=== PATIENT | female | born 1965 | race African-American/Black ===

== ENCOUNTER 2016-08-27 06:16 | Inpatient (IN) | payer MEDICARE, MEDICAID ==
[2016-08-27] VITALS (8 sets, daily range): BP systolic 115–188; BP diastolic 92–136
[~2016-08-27] VITALS: Ht 152.4 cm; Wt 61.2 kg
[~2016-08-27 06:16] MED LIST: COR6 PO; FURO40TA5 PO; LEVO25TA7 PO; LOSA50TA20 PO; METO25TA6 PO; PANT40TA4 PO; PHEN100C12 PO; PROT40 PO; RANI150C12 PO; SEVE800T8 PO; ZOLP10TA2 PO; ZOLP10TA6 PO
[2016-08-27] MEDS ORDERED: CLONIDINE 0.1MG TABLET PO ONE (07:00)
[2016-08-27] MEDS ORDERED: HYDROCODONE/ACETAMINOPHEN 5/325MG TABLET PO ONE (07:00)
[2016-08-27 07:25] LABS: MEAN CORPUSCULAR HEMOGLOBIN 32.7 pg (28.0-32.0); MEAN CORPUSCULAR HGB CONC 33.5 g/dL (31.0-37.0); MEAN CORPUSCULAR VOLUME 97.6 fL (81.0-99.0); MEAN PLATELET VOLUME 7.5 fl (7.4-10.4); PLATELET 128 x1000/uL (130-400); RED BLOOD CELL COUNT 2.01 mill/uL (4.2-5.4); RED CELL DISTRIBUTION WIDTH 17.2 % (11.6-14.6); WHITE BLOOD COUNT 6.1 x1000/uL (4.5-11.0)
[2016-08-27 07:30] LABS: INR 1.3; PARTIAL THROMBOPLASTIN TIME 26.5 sec (24.0-34.0); PROTHROMBIN TIME 13.4 sec
[2016-08-27 07:32] LABS: CALCIUM 8.6 mg/dL (8.5-10.1)
[2016-08-27 07:33] LABS: DIFFERENTIAL COMMENT 1
[2016-08-27 07:34] LABS: HEMATOCRIT. 19.6 % (36.0-48.0); HEMOGLOBIN. 6.6 g/dL (12.0-16.0)
[2016-08-27] MEDS ORDERED: HYDRALAZINE 20MG/ML VIAL IV ONE (08:00)
[2016-08-27 08:01] LABS: ANISOCYTOSIS 1+; PLATELET ESTIMATE SLIGHTLY DECREASED
[2016-08-27] MEDS ORDERED: MORPHINE SULFATE 4 MG/ML CPJ (NOT FOR IM USE) IV ONE (08:30)
[2016-08-27] MEDS ORDERED: ONDANSETRON HCL 4MG/2ML VIAL IV ONE (08:30)
[2016-08-27] MEDS ORDERED: ACETAMINOPHEN 325MG TABLET PO PRN (09:30)
[2016-08-27] MEDS ORDERED: DOCUSATE SODIUM 100MG CAPSULE PO PRN (09:30)
[2016-08-27] MEDS ORDERED: ONDANSETRON HCL 4MG/2ML VIAL IV PRN (09:30)
[2016-08-27] MEDS ORDERED: NITROGLYCERIN 0.4MG TABLET SL SL PRN (09:30)
[2016-08-27] MEDS ORDERED: ENOXAPARIN 40MG/0.4ML SYR SUBCUT SCH (09:30)
[2016-08-27] MEDS ORDERED: NA PHOS,M-B/NA PHOS,DI-BA ENEMA 118ML PR PRN (09:30)
[2016-08-27] MEDS ORDERED: MAGNESIUM/ALUMINUM HYDROXIDE/SIMETHICONE 30ML UDC PO PRN (09:30)
[2016-08-27] MEDS ORDERED: IPRATROPIUM/ALBUTEROL 0.5-3(2.5)MG/3ML NEB INH PRN (09:30)
[2016-08-27] MEDS ORDERED: GUAIFENESIN 200MG/10ML SUGAR FREE UDC PO PRN (09:30)
[2016-08-27 09:41] LABS: ETHANOL BLOOD < 10 mg/dL; PHENYTOIN 4.5 ug/mL (10-20)
[2016-08-27] MEDS: HYDRALAZINE HCL 50MG TABLET PO SCH ×2 (14:00→22:14)
[2016-08-27] MEDS: SEVELAMER CARBONATE 800 MG TABLET PO SCH ×2 (14:03→17:56)
[2016-08-27] MEDS: ENOXAPARIN 30MG/0.3ML SYR SUBCUT SCH (14:04)
[2016-08-27 15:42] LABS: CREATINE KINASE MB FRACTION 0.6 ng/mL (0.5-3.6); TROPONIN I 0.03 ng/mL (0.00-0.04)
[2016-08-27] MEDS: DIPHENHYDRAMINE 50MG/ML VIAL IV PRN (16:24)
[2016-08-27] MEDS ORDERED: HEPARIN SODIUM 1,000 UNIT/1ML VIAL IV NR (16:58)
[2016-08-27] MEDS: CARVEDILOL 3.125 MG TABLET PO SCH (17:56)
[2016-08-27] MEDS: PHENYTOIN SODIUM EXTENDED 100MG CAPSULE PO SCH (20:01)
[2016-08-27] MEDS: CLONIDINE 0.1MG TABLET PO PRN (20:02)
[2016-08-27] MEDS: LORAZEPAM 2MG/ML CPJ IV PRN (20:03)
[2016-08-27] MEDS: ZOLPIDEM TARTRATE 5MG TABLET PO PRN (22:14)
[2016-08-27 22:58] LABS: CREATINE KINASE MB FRACTION 1.3 ng/mL (0.5-3.6); TROPONIN I 0.05 ng/mL (0.00-0.04)
[2016-08-28] VITALS: BP 137/100
[2016-08-28] MEDS: LORAZEPAM 2MG/ML CPJ IV PRN ×3 (02:02→16:44)
[2016-08-28 04:00] VITALS: BP 142/103
[2016-08-28] MEDS: HYDRALAZINE HCL 50MG TABLET PO SCH ×3 (05:10→21:43)
[2016-08-28] MEDS: CARVEDILOL 3.125 MG TABLET PO SCH ×2 (05:59→17:49)
[2016-08-28 06:29] LABS: HEMATOCRIT. 27.7 % (36.0-48.0); HEMOGLOBIN. 9.3 g/dL (12.0-16.0); MEAN CORPUSCULAR HEMOGLOBIN 31.8 pg (28.0-32.0); MEAN CORPUSCULAR HGB CONC 33.7 g/dL (31.0-37.0); MEAN CORPUSCULAR VOLUME 94.3 fL (81.0-99.0); MEAN PLATELET VOLUME 8.2 fl (7.4-10.4); PLATELET 140 x1000/uL (130-400); RED BLOOD CELL COUNT 2.94 mill/uL (4.2-5.4); RED CELL DISTRIBUTION WIDTH 18.2 % (11.6-14.6); WHITE BLOOD COUNT 6.3 x1000/uL (4.5-11.0)
[2016-08-28 06:37] LABS: CALCIUM 8.5 mg/dL (8.5-10.1)
[2016-08-28 06:58] LABS: DIFFERENTIAL COMMENT 1
[2016-08-28 08:00] VITALS: BP 143/100
[2016-08-28 08:21] LABS: ANISOCYTOSIS 1+; NUCLEATED RED BLOOD CELLS 2 /100 WBC; PLATELET ESTIMATE NORMAL
[2016-08-28] MEDS: FOLIC ACID/VITAMIN B COMP W-C TABLET PO SCH (08:49)
[2016-08-28] MEDS: PANTOPRAZOLE SODIUM 40 MG/VIAL IV SCH (08:49)
[2016-08-28] MEDS: SEVELAMER CARBONATE 800 MG TABLET PO SCH ×3 (08:49→17:49)
[2016-08-28] MEDS: ENOXAPARIN 30MG/0.3ML SYR SUBCUT SCH (08:50)
[2016-08-28 12:00] VITALS: BP 106/64
[2016-08-28] MEDS: TRAMADOL 50MG TABLET PO PRN (12:27)
[2016-08-28 16:00] VITALS: BP 138/109
[2016-08-28] MEDS: DIPHENHYDRAMINE 50MG/ML VIAL IV PRN ×2 (17:50→22:45)
[2016-08-28 20:00] VITALS: BP 149/114
[2016-08-28] MEDS: PHENYTOIN SODIUM EXTENDED 100MG CAPSULE PO SCH (20:50)
[2016-08-29] VITALS: BP 141/97
[2016-08-29] MEDS: ZOLPIDEM TARTRATE 5MG TABLET PO PRN (00:52)
[2016-08-29 04:00] VITALS: BP 138/105
[2016-08-29] MEDS: HYDRALAZINE HCL 50MG TABLET PO SCH (04:17)
[2016-08-29 06:22] LABS: CALCIUM 8.6 mg/dL (8.5-10.1)
[2016-08-29] MEDS: LORAZEPAM 2MG/ML CPJ IV PRN (06:26)
[2016-08-29] MEDS: CARVEDILOL 3.125 MG TABLET PO SCH (06:30)
[2016-08-29 06:32] LABS: HEMATOCRIT. 29.6 % (36.0-48.0); MEAN CORPUSCULAR HEMOGLOBIN 31.7 pg (28.0-32.0); MEAN CORPUSCULAR HGB CONC 33.8 g/dL (31.0-37.0); MEAN CORPUSCULAR VOLUME 93.8 fL (81.0-99.0); MEAN PLATELET VOLUME 8.4 fl (7.4-10.4); PLATELET 143 x1000/uL (130-400); RED BLOOD CELL COUNT 3.15 mill/uL (4.2-5.4); RED CELL DISTRIBUTION WIDTH 18.7 % (11.6-14.6); WHITE BLOOD COUNT 5.7 x1000/uL (4.5-11.0)
[2016-08-29 07:03] LABS: DIFFERENTIAL COMMENT 1
[2016-08-29 08:00] VITALS: BP 145/107
[2016-08-29] MEDS: PANTOPRAZOLE SODIUM 40 MG/VIAL IV SCH (08:20)
[2016-08-29] MEDS: FOLIC ACID/VITAMIN B COMP W-C TABLET PO SCH (08:20)
[2016-08-29] MEDS: SEVELAMER CARBONATE 800 MG TABLET PO SCH (08:20)
[2016-08-29] MEDS: ENOXAPARIN 30MG/0.3ML SYR SUBCUT SCH (08:20)
[2016-08-29] MEDS: TRAMADOL 50MG TABLET PO PRN (09:08)
[2016-08-29 10:33] LABS: NUCLEATED RED BLOOD CELLS 1 /100 WBC
[2016-08-29 10:35] LABS: ANISOCYTOSIS 1+
[2016-08-29 10:36] LABS: PLATELET ESTIMATE NORMAL
[2016-08-29 11:48] VITALS: BP 157/114
[2016-08-29] MEDS: CLONIDINE 0.1MG TABLET PO PRN (11:51)
[2016-08-29 12:04] VITALS: BP 157/114
== END 2016-08-29 12:27 | disposition home or self-care (01) | DRG 314 ==
LOC: ER 06:18 → 8WST 08:35
PROVIDERS: ADMIT Internal Medicine; ATTEND Internal Medicine
PROC: 02PYX3Z Removal of Infusion Device from Great Vessel, External Approach (ICD-10-PCS; principal; 2016-08-27)
PROC: 02HV33Z Insertion of Infusion Device into Superior Vena Cava, Percutaneous Approach (ICD-10-PCS; 2016-08-27)
PROC: B5181ZA Fluoroscopy of Superior Vena Cava using Low Osmolar Contrast, Guidance (ICD-10-PCS; 2016-08-27)
PROC: B548ZZA Ultrasonography of Superior Vena Cava, Guidance (ICD-10-PCS; 2016-08-27)
PROC: 5A1D60Z (ICD-10-PCS; 2016-08-27)
PROC: 30233N1 Transfusion of Nonautologous Red Blood Cells into Peripheral Vein, Percutaneous Approach (ICD-10-PCS; 2016-08-27)
DX: T82.49XA Other complication of vascular dialysis catheter, initial encounter (principal); N18.6 End stage renal disease; D62 Acute posthemorrhagic anemia; I13.2 Hypertensive heart and chronic kidney disease with heart failure and with stage 5 chronic kidney disease, or end stage renal disease; E03.9 Hypothyroidism, unspecified; F20.9 Schizophrenia, unspecified; F31.9 Bipolar disorder, unspecified; G40.909 Epilepsy, unspecified, not intractable, without status epilepticus; I50.9 Heart failure, unspecified; E05.90 Thyrotoxicosis, unspecified without thyrotoxic crisis or storm; Y71.2 Prosthetic and other implants, materials and accessory cardiovascular devices associated with adverse incidents; Z82.49 Family history of ischemic heart disease and other diseases of the circulatory system; Z83.3 Family history of diabetes mellitus; Z91.11 Patient's noncompliance with dietary regimen; Z91.14 Patient's other noncompliance with medication regimen; Z91.19 Patient's noncompliance with other medical treatment and regimen; Z99.2 Dependence on renal dialysis; Z91.018 Allergy to other foods; Z91.09 Other allergy status, other than to drugs and biological substances; Z79.899 Other long term (current) drug therapy; Z72.89 Other problems related to lifestyle
CPT/HCPCS: 36415; 36430; 36556; 71010; 76937; 77001; 80048; 80185; 82550; 82553; 84484; 85025; 85610; 85730; 86850; 86870; 86900; 86920; 93005; 99285; C1752; C9113; G0482; J0360; J1200; J1644; J1650; J2060; J2270; J2405; J7030; J7050; P9016; P9021

== ENCOUNTER 2016-10-11 03:50 | Inpatient (IN) | payer MEDICARE, MEDICAID ==
[~2016-10-11] VITALS: Ht 170.2 cm; Wt 56.7 kg
[2016-10-11 04:53] LABS: HEMOGLOBIN. 9.1 g/dL (12.0-16.0); MEAN CORPUSCULAR HEMOGLOBIN 30.9 pg (28.0-32.0); MEAN CORPUSCULAR HGB CONC 32.5 g/dL (31.0-37.0); MEAN PLATELET VOLUME 7.3 fl (7.4-10.4); PLATELET 241 x1000/uL (130-400); RED BLOOD CELL COUNT 2.95 mill/uL (4.2-5.4); RED CELL DISTRIBUTION WIDTH 16.7 % (11.6-14.6); WHITE BLOOD COUNT 4.3 x1000/uL (4.5-11.0)
[2016-10-11 04:54] LABS: DIFFERENTIAL COMMENT 1
[2016-10-11 04:57] LABS: INR 1.2; PARTIAL THROMBOPLASTIN TIME 26.5 sec (24.0-34.0); PROTHROMBIN TIME 12.7 sec
[2016-10-11 05:08] LABS: ALANINE AMINOTRANSFERASE < 6 IU/L (13-61); ALBUMIN 3.2 g/dL (3.4-5.0); ANION GAP 26; CALCIUM 8.5 mg/dL (8.5-10.1); CARBON DIOXIDE 17 mEq/L (21-32); CHLORIDE 100 mEq/L (98-107); INDEX HEMOLYSI 1 (1-3); INDEX ICTERIC 1 (1-4); INDEX LIPEMIC 1 (1-3); TROPONIN I 0.08 ng/mL (0.00-0.04); UREA NITROGEN BLOOD 66 mg/dL (7-21); eGFR 4 mL/min (>60)
[2016-10-11] MEDS ORDERED: LORAZEPAM 1MG TABLET PO ONE (06:30)
[2016-10-11] MEDS ORDERED: ONDANSETRON HCL 4MG/2ML VIAL IV ONE (06:30)
[2016-10-11] MEDS ORDERED: CALCIUM CHLORIDE 1GM/10ML SYR IV ONE (06:30)
[2016-10-11] MEDS ORDERED: MORPHINE SULFATE 4 MG/ML CPJ (NOT FOR IM USE) IV ONE (06:30)
[2016-10-11] MEDS ORDERED: DEXTROSE 50% WATER 50ML SYRINGE IV ONE (06:30)
[2016-10-11] MEDS ORDERED: INSULIN REGULAR (HUMULIN R) 300UNITS/3ML IV ONE (06:30)
[2016-10-11] MEDS ORDERED: SODIUM BICARBONATE 8.4% 1 MEQ/ML 50ML SYR IV ONE (06:30)
[2016-10-11 06:35] LABS: MAGNESIUM 2.3 mg/dL (1.8-2.4); PHOSPHORUS 5.1 mg/dL (2.5-4.9)
[2016-10-11 07:15] LABS: NUCLEATED RED BLOOD CELLS 1 /100 WBC; PLATELET ESTIMATE NORMAL
[2016-10-11] MEDS ORDERED: HYDRALAZINE 20MG/ML VIAL IV ONE (11:45)
[2016-10-11 12:50] VITALS: BP 151/119
[2016-10-11] MEDS ORDERED: ACETAMINOPHEN 325MG TABLET PO PRN (15:15)
[2016-10-11] MEDS ORDERED: MAGNESIUM/ALUMINUM HYDROXIDE/SIMETHICONE 30ML UDC PO PRN (15:15)
[2016-10-11] MEDS ORDERED: ONDANSETRON HCL 4MG/2ML VIAL IV PRN (15:15)
[2016-10-11] MEDS ORDERED: LORAZEPAM 0.5MG TABLET PO PRN (15:15)
[2016-10-11] MEDS ORDERED: DIPHENHYDRAMINE 50MG/ML VIAL IV PRN (15:15)
[2016-10-11] MEDS ORDERED: CLONIDINE 0.1MG TABLET PO PRN (15:15)
[2016-10-11] MEDS ORDERED: CARVEDILOL 12.5MG TABLET PO SCH (17:00)
[2016-10-11] MEDS ORDERED: PHENYTOIN SODIUM EXTENDED 100MG CAPSULE PO SCH (17:00)
[2016-10-11] MEDS ORDERED: SEVELAMER CARBONATE 800 MG TABLET PO SCH (17:40)
[2016-10-11] MEDS ORDERED: SODIUM CHLORIDE 0.9% INJ 3ML FLUSH IVF SCH (22:00)
[2016-10-11] MEDS ORDERED: ISOSORB DINIT/HYDRALAZINE HCL 20/37.5MG TABLET PO SCH (22:00)
[2016-10-12] MEDS ORDERED: LEVOTHYROXINE SODIUM 25MCG TABLET PO SCH (07:10)
[2016-10-12] MEDS ORDERED: LOSARTAN POTASSIUM 50 MG TABLET PO SCH (09:00)
[2016-10-12] MEDS ORDERED: PANTOPRAZOLE 40MG DR TABLET PO SCH (09:00)
== END 2016-10-11 19:20 | disposition left against medical advice (07) | DRG 291 ==
LOC: ER 03:54 → 8WST 07:10
PROVIDERS: ADMIT Internal Medicine; ATTEND Internal Medicine
PROC: 5A1D00Z (ICD-10-PCS; principal; 2016-10-11)
DX: I13.2 Hypertensive heart and chronic kidney disease with heart failure and with stage 5 chronic kidney disease, or end stage renal disease (principal); N18.6 End stage renal disease; I50.23 Acute on chronic systolic (congestive) heart failure; N17.9 Acute kidney failure, unspecified; D63.8 Anemia in other chronic diseases classified elsewhere; E03.9 Hypothyroidism, unspecified; E87.5 Hyperkalemia; D64.9 Anemia, unspecified; Z53.21 Procedure and treatment not carried out due to patient leaving prior to being seen by health care provider; F17.200 Nicotine dependence, unspecified, uncomplicated; F41.1 Generalized anxiety disorder; Z82.49 Family history of ischemic heart disease and other diseases of the circulatory system; Z83.3 Family history of diabetes mellitus; Z91.19 Patient's noncompliance with other medical treatment and regimen; Z99.2 Dependence on renal dialysis; Z79.2 Long term (current) use of antibiotics; Z79.899 Other long term (current) drug therapy; Z98.51 Tubal ligation status; Z91.018 Allergy to other foods
CPT/HCPCS: 36415; 71010; 80053; 82962; 83735; 84100; 84484; 85025; 85610; 85730; 93005; 96374; 96375; 99291; J0360; J1815; J2270; J2405; J3490; J7030

== ENCOUNTER 2016-11-03 23:00 | Inpatient (IN) | payer MEDICARE, MEDICAID ==
[~2016-11-03] VITALS: Ht 170.2 cm; Wt 56.7 kg
[2016-11-03 23:40] LABS: BASOPHILS % 2.2 % (0.0-2.0); EOSINOPHILS % 10.3 % (0.0-5.0); HEMATOCRIT. 29.8 % (36.0-48.0); HEMOGLOBIN. 10.1 g/dL (12.0-16.0); LYMPHOCYTES % 36.7 % (20.0-50.0); MEAN CORPUSCULAR HEMOGLOBIN 30.9 pg (28.0-32.0); MEAN CORPUSCULAR VOLUME 91.6 fL (81.0-99.0); MEAN PLATELET VOLUME 7.6 fl (7.4-10.4); NEUTROPHILS % 40.8 % (40.0-76.0); PLATELET 238 x1000/uL (130-400); RED BLOOD CELL COUNT 3.26 mill/uL (4.2-5.4)
[2016-11-03] MEDS ORDERED: IPRATROPIUM/ALBUTEROL 0.5-3(2.5)MG/3ML NEB INH PRN (23:45)
[2016-11-03] MEDS ORDERED: DIPHENHYDRAMINE 50MG/ML VIAL IV PRN (23:45)
[2016-11-03] MEDS ORDERED: MAGNESIUM/ALUMINUM HYDROXIDE/SIMETHICONE 30ML UDC PO PRN (23:45)
[2016-11-03] MEDS ORDERED: ONDANSETRON HCL 4MG/2ML VIAL IV PRN (23:45)
[2016-11-03 23:46] LABS: CHLORIDE 102 mEq/L (98-107)
[2016-11-03 23:47] LABS: INR 1.2; PARTIAL THROMBOPLASTIN TIME 27.1 sec (24.0-34.0); PROTHROMBIN TIME 12.4 sec
[2016-11-04] MEDS ORDERED: MORPHINE SULFATE 4 MG/ML CPJ (NOT FOR IM USE) IV ONE
[2016-11-04] MEDS ORDERED: ONDANSETRON HCL 4MG/2ML VIAL IV ONE
[2016-11-04 00:01] LABS: CARBON DIOXIDE 22 mEq/L (21-32)
[2016-11-04] MEDS: ACETAMINOPHEN 325MG TABLET PO PRN ×2 (01:51→20:34)
[2016-11-04] MEDS: LORAZEPAM 1MG TABLET PO PRN ×2 (02:19→22:01)
[2016-11-04] MEDS: CLONIDINE 0.1MG TABLET PO PRN (02:40)
[2016-11-04 04:00] VITALS: BP 146/109
[2016-11-04 04:19] VITALS: BP 146/109
[2016-11-04] MEDS: ISOSORB DINIT/HYDRALAZINE HCL 20/37.5MG TABLET PO SCH ×3 (06:00→22:01)
[2016-11-04] MEDS: PHENYTOIN SODIUM EXTENDED 100MG CAPSULE PO SCH ×3 (06:34→22:01)
[2016-11-04] MEDS: LEVOTHYROXINE SODIUM 50MCG TABLET PO SCH (06:34)
[2016-11-04] MEDS: SODIUM CHLORIDE 0.9% INJ 3ML FLUSH IVF SCH ×3 (06:35→22:01)
[2016-11-04 08:00] VITALS: BP 129/102
[2016-11-04] MEDS: FOLIC ACID/VITAMIN B COMP W-C TABLET PO SCH (09:00)
[2016-11-04] MEDS: AMLODIPINE 10MG TABLET PO SCH (09:00)
[2016-11-04] MEDS: CARVEDILOL 12.5MG TABLET PO SCH ×2 (09:00→20:35)
[2016-11-04] MEDS ORDERED: HEPARIN SODIUM 1,000 UNIT/1ML VIAL IV SCH (09:15)
[2016-11-04 12:00] VITALS: BP 132/96
[2016-11-04 16:15] VITALS: BP 141/100
[2016-11-04 20:00] VITALS: BP 147/107
[2016-11-04] MEDS: TRAMADOL 50MG TABLET PO PRN (23:58)
[2016-11-05] VITALS: BP 142/110
[2016-11-05 04:00] VITALS: BP 141/109
[2016-11-05] MEDS: ISOSORB DINIT/HYDRALAZINE HCL 20/37.5MG TABLET PO SCH ×3 (06:15→21:13)
[2016-11-05] MEDS: SODIUM CHLORIDE 0.9% INJ 3ML FLUSH IVF SCH ×3 (06:15→21:13)
[2016-11-05] MEDS: PHENYTOIN SODIUM EXTENDED 100MG CAPSULE PO SCH ×3 (06:15→21:14)
[2016-11-05] MEDS: LEVOTHYROXINE SODIUM 50MCG TABLET PO SCH (06:15)
[2016-11-05] MEDS: LORAZEPAM 1MG TABLET PO PRN (06:31)
[2016-11-05] MEDS: TRAMADOL 50MG TABLET PO PRN (06:33)
[2016-11-05 08:00] VITALS: BP 109/82
[2016-11-05] MEDS: CARVEDILOL 12.5MG TABLET PO SCH ×2 (09:00→21:13)
[2016-11-05] MEDS: AMLODIPINE 10MG TABLET PO SCH (09:00)
[2016-11-05] MEDS: FOLIC ACID/VITAMIN B COMP W-C TABLET PO SCH (09:41)
[2016-11-05 12:00] VITALS: BP 113/75
[2016-11-05 16:00] VITALS: BP 123/87
[2016-11-05 20:00] VITALS: BP 125/98
[2016-11-05] MEDS: ZOLPIDEM TARTRATE 5MG TABLET PO PRN (21:14)
[2016-11-06] VITALS (7 sets, daily range): BP systolic 109–143; BP diastolic 72–106
[2016-11-06] MEDS: CLONIDINE 0.1MG TABLET PO PRN ×2 (00:40→16:09)
[2016-11-06] MEDS: LORAZEPAM 1MG TABLET PO PRN ×3 (00:45→16:09)
[2016-11-06] MEDS: PHENYTOIN SODIUM EXTENDED 100MG CAPSULE PO SCH ×3 (05:26→21:16)
[2016-11-06] MEDS: ISOSORB DINIT/HYDRALAZINE HCL 20/37.5MG TABLET PO SCH ×3 (05:26→21:16)
[2016-11-06] MEDS: LEVOTHYROXINE SODIUM 50MCG TABLET PO SCH (06:34)
[2016-11-06] MEDS: CARVEDILOL 12.5MG TABLET PO SCH ×2 (07:39→21:16)
[2016-11-06] MEDS: AMLODIPINE 10MG TABLET PO SCH (07:39)
[2016-11-06] MEDS: TRAMADOL 50MG TABLET PO PRN (07:52)
[2016-11-06] MEDS: FOLIC ACID/VITAMIN B COMP W-C TABLET PO SCH (07:52)
[2016-11-06 07:59] LABS: BASOPHILS % 0.8 % (0.0-2.0); HEMATOCRIT. 27.8 % (36.0-48.0); HEMOGLOBIN. 9.2 g/dL (12.0-16.0); LYMPHOCYTES % 31.4 % (20.0-50.0); MEAN CORPUSCULAR HEMOGLOBIN 30.6 pg (28.0-32.0); MEAN CORPUSCULAR VOLUME 92.8 fL (81.0-99.0); MEAN PLATELET VOLUME 8.3 fl (7.4-10.4); MONOCYTES % 10.6 % (2.0-8.0); NEUTROPHILS % 49.2 % (40.0-76.0); PLATELET 214 x1000/uL (130-400); RED CELL DISTRIBUTION WIDTH 16.1 % (11.6-14.6)
[2016-11-06] MEDS ORDERED: HEPARIN SODIUM 1,000 UNIT/1ML VIAL IV NR (12:00)
[2016-11-06] MEDS: SODIUM CHLORIDE 0.9% INJ 3ML FLUSH IVF SCH ×2 (13:21→21:17)
[2016-11-06] MEDS: ZOLPIDEM TARTRATE 5MG TABLET PO PRN (21:16)
[2016-11-07 04:00] VITALS: BP 111/84
[2016-11-07] MEDS: ISOSORB DINIT/HYDRALAZINE HCL 20/37.5MG TABLET PO SCH (06:12)
[2016-11-07] MEDS: PHENYTOIN SODIUM EXTENDED 100MG CAPSULE PO SCH (06:12)
[2016-11-07] MEDS: LEVOTHYROXINE SODIUM 50MCG TABLET PO SCH (06:12)
[2016-11-07] MEDS: SODIUM CHLORIDE 0.9% INJ 3ML FLUSH IVF SCH (06:13)
[2016-11-07 06:21] LABS: HEMATOCRIT. 30.2 % (36.0-48.0); HEMOGLOBIN. 10.1 g/dL (12.0-16.0); MEAN CORPUSCULAR HEMOGLOBIN 30.7 pg (28.0-32.0); PLATELET 222 x1000/uL (130-400); RED BLOOD CELL COUNT 3.28 mill/uL (4.2-5.4); RED CELL DISTRIBUTION WIDTH 15.8 % (11.6-14.6)
[2016-11-07 08:00] VITALS: BP 102/84
[2016-11-07] MEDS: CARVEDILOL 12.5MG TABLET PO SCH (09:33)
[2016-11-07] MEDS: FOLIC ACID/VITAMIN B COMP W-C TABLET PO SCH (09:33)
[2016-11-07] MEDS: AMLODIPINE 10MG TABLET PO SCH (09:34)
[2016-11-07] MEDS: LORAZEPAM 1MG TABLET PO PRN (09:34)
[2016-11-07 11:28] LABS: PLATELET ESTIMATE NORMAL
== END 2016-11-07 14:30 | disposition home or self-care (01) | DRG 291 ==
LOC: ER 23:00 → 6WST 23:58
PROVIDERS: ADMIT Internal Medicine; ATTEND Internal Medicine
PROC: 5A1D60Z (ICD-10-PCS; 2016-11-04)
PROC: 0W9G3ZZ Drainage of Peritoneal Cavity, Percutaneous Approach (ICD-10-PCS; principal; 2016-11-05)
DX: I13.2 Hypertensive heart and chronic kidney disease with heart failure and with stage 5 chronic kidney disease, or end stage renal disease (principal); I50.23 Acute on chronic systolic (congestive) heart failure; N18.6 End stage renal disease; R18.8 Other ascites; F41.1 Generalized anxiety disorder; D64.9 Anemia, unspecified; E03.9 Hypothyroidism, unspecified; E87.5 Hyperkalemia; G40.909 Epilepsy, unspecified, not intractable, without status epilepticus; F29 Unspecified psychosis not due to a substance or known physiological condition; F17.200 Nicotine dependence, unspecified, uncomplicated; Z91.19 Patient's noncompliance with other medical treatment and regimen; Z99.2 Dependence on renal dialysis; Z91.018 Allergy to other foods; Z79.899 Other long term (current) drug therapy; Z83.3 Family history of diabetes mellitus; Z82.49 Family history of ischemic heart disease and other diseases of the circulatory system
CPT/HCPCS: 36415; 49083; 71010; 76705; 80048; 80051; 80053; 82962; 83880; 85025; 85610; 85730; 93005; 96374; 96375; 99285; C1893; J1200; J1644; J2270; J2405; J7030

== ENCOUNTER 2016-11-12 21:56 | Inpatient (IN) | payer MEDICARE, MEDICAID ==
[~2016-11-12] VITALS: Ht 170.2 cm; Wt 53.1 kg
[2016-11-13] MEDS ORDERED: MORPHINE SULFATE 4 MG/ML CPJ (NOT FOR IM USE) IV STA (00:04)
[2016-11-13] MEDS ORDERED: ONDANSETRON HCL 4MG/2ML VIAL IV STA (00:04)
[2016-11-13 00:34] LABS: HEMATOCRIT. 32.1 % (36.0-48.0); HEMOGLOBIN. 10.7 g/dL (12.0-16.0); LYMPHOCYTES % 39.1 % (20.0-50.0); MEAN CORPUSCULAR HEMOGLOBIN 30.5 pg (28.0-32.0); MEAN CORPUSCULAR VOLUME 91.7 fL (81.0-99.0); MONOCYTES % 9.3 % (2.0-8.0); NEUTROPHILS % 44.6 % (40.0-76.0); PLATELET 269 x1000/uL (130-400); RED CELL DISTRIBUTION WIDTH 15.8 % (11.6-14.6)
[2016-11-13 00:47] LABS: CARBON DIOXIDE 20 mEq/L (21-32); CHLORIDE 98 mEq/L (98-107); TROPONIN I 0.03 ng/mL (0.00-0.04)
[2016-11-13] MEDS ORDERED: SODIUM BICARBONATE 8.4% 1 MEQ/ML 50ML SYR IV ONE (02:00)
[2016-11-13] MEDS ORDERED: INSULIN REGULAR (HUMULIN R) 300UNITS/3ML IV ONE (02:00)
[2016-11-13] MEDS ORDERED: DEXTROSE 50% WATER 50ML SYRINGE IV ONE ×2 (02:00→02:15)
[2016-11-13] MEDS ORDERED: SODIUM POLYSTYRENE SULFONATE 15 G/60 ML BOT PO ONE (02:00)
[2016-11-13] MEDS ORDERED: CALCIUM CHLORIDE 1GM/10ML SYR IV ONE (02:00)
[2016-11-13] MEDS ORDERED: DEXTROSE 50% WATER 50ML SYRINGE IV NR (02:15)
[2016-11-13] MEDS ORDERED: DIPHENHYDRAMINE 50MG/ML VIAL IV ONE (03:45)
[2016-11-13] MEDS ORDERED: DEXT 5%/0.45% NACL 1000ML 1,000 ML IV SCH (07:02)
[2016-11-13] MEDS ORDERED: NA PHOS,M-B/NA PHOS,DI-BA ENEMA 118ML PR PRN (07:15)
[2016-11-13] MEDS ORDERED: MAGNESIUM/ALUMINUM HYDROXIDE/SIMETHICONE 30ML UDC PO PRN (07:15)
[2016-11-13] MEDS ORDERED: ONDANSETRON HCL 4MG/2ML VIAL IV PRN (07:15)
[2016-11-13] MEDS ORDERED: HYDROCODONE/ACETAMINOPHEN 5/325MG TABLET PO PRN (07:15)
[2016-11-13] MEDS ORDERED: DOCUSATE SODIUM 100MG CAPSULE PO PRN (07:15)
[2016-11-13] MEDS ORDERED: HYDROMORPHONE HCL/PF 2MG/ML CPJ IV PRN (07:15)
[2016-11-13] MEDS ORDERED: IPRATROPIUM/ALBUTEROL 0.5-3(2.5)MG/3ML NEB INH PRN (07:15)
[2016-11-13] MEDS ORDERED: ACETAMINOPHEN 325MG TABLET PO PRN (07:15)
[2016-11-13] MEDS ORDERED: GUAIFENESIN 200MG/10ML SUGAR FREE UDC PO PRN (07:15)
[2016-11-13] MEDS: CLONIDINE 0.1MG TABLET PO PRN ×2 (08:12→21:43)
[2016-11-13] MEDS ORDERED: SODIUM POLYSTYRENE SULFONATE 15 G/60 ML BOT PO SCH (09:00)
[2016-11-13] MEDS: ENOXAPARIN 30MG/0.3ML SYR SUBCUT SCH (11:17)
[2016-11-13] MEDS: DIPHENHYDRAMINE 50MG/ML VIAL IV PRN ×2 (11:17→13:50)
[2016-11-13 12:00] VITALS: BP 180/143
[2016-11-13 12:44] VITALS: BP 180/143
[2016-11-13] MEDS ORDERED: AMLO10TA80 PO (13:09)
[2016-11-13] MEDS ORDERED: FAMO20TA8 PO (13:09)
[2016-11-13] MEDS ORDERED: TRAM50TA3 PO (13:09)
[2016-11-13] MEDS: LOSARTAN POTASSIUM 50 MG TABLET PO SCH (13:49)
[2016-11-13] MEDS: AMLODIPINE 10MG TABLET PO SCH (13:49)
[2016-11-13] MEDS: PHENYTOIN SODIUM EXTENDED 100MG CAPSULE PO SCH ×2 (13:50→17:19)
[2016-11-13] MEDS: ASPIRIN 81MG EC TABLET PO SCH (13:50)
[2016-11-13] MEDS: SEVELAMER CARBONATE 800 MG TABLET PO SCH ×2 (13:50→17:19)
[2016-11-13] MEDS: LEVOTHYROXINE SODIUM 50MCG TABLET PO SCH (13:50)
[2016-11-13] MEDS: FAMOTIDINE 20MG TABLET PO SCH (13:50)
[2016-11-13] MEDS: FUROSEMIDE 40MG TABLET PO SCH (17:19)
[2016-11-13 20:00] VITALS: BP 185/128
[2016-11-13] MEDS: LORAZEPAM 2MG/ML CPJ IV PRN (21:42)
[2016-11-13] MEDS: CARVEDILOL 12.5MG TABLET PO SCH (21:42)
[2016-11-14] VITALS: BP 145/93
[2016-11-14] MEDS: LORAZEPAM 2MG/ML CPJ IV PRN ×3 (03:28→20:02)
[2016-11-14 04:00] VITALS: BP 98/67
[2016-11-14 05:11] LABS: BASOPHILS % 0.7 % (0.0-2.0); HEMOGLOBIN. 8.9 g/dL (12.0-16.0); LYMPHOCYTES % 10.1 % (20.0-50.0); MEAN CORPUSCULAR HEMOGLOBIN 30.4 pg (28.0-32.0); MEAN CORPUSCULAR VOLUME 92.3 fL (81.0-99.0); MEAN PLATELET VOLUME 8.4 fl (7.4-10.4); MONOCYTES % 6.8 % (2.0-8.0); NEUTROPHILS % 79.4 % (40.0-76.0); PLATELET 164 x1000/uL (130-400); RED BLOOD CELL COUNT 2.93 mill/uL (4.2-5.4); RED CELL DISTRIBUTION WIDTH 15.3 % (11.6-14.6)
[2016-11-14 05:30] LABS: CARBON DIOXIDE 27 mEq/L (21-32); CHLORIDE 103 mEq/L (98-107); HDL CHOLESTEROL 46 mg/dL (40-59); LDL CHOLESTEROL 46 mg/dL (5-100); TROPONIN I 0.06 ng/mL (0.00-0.04)
[2016-11-14 08:47] VITALS: BP 129/85
[2016-11-14] MEDS: LEVOTHYROXINE SODIUM 50MCG TABLET PO SCH (08:52)
[2016-11-14] MEDS: SEVELAMER CARBONATE 800 MG TABLET PO SCH ×3 (08:52→17:31)
[2016-11-14] MEDS: PHENYTOIN SODIUM EXTENDED 100MG CAPSULE PO SCH ×3 (08:52→17:43)
[2016-11-14] MEDS: LOSARTAN POTASSIUM 50 MG TABLET PO SCH (08:52)
[2016-11-14] MEDS: ASPIRIN 81MG EC TABLET PO SCH (08:52)
[2016-11-14] MEDS: FAMOTIDINE 20MG TABLET PO SCH (08:52)
[2016-11-14] MEDS: FUROSEMIDE 40MG TABLET PO SCH ×2 (08:52→17:31)
[2016-11-14] MEDS: AMLODIPINE 10MG TABLET PO SCH (08:52)
[2016-11-14] MEDS: CARVEDILOL 12.5MG TABLET PO SCH ×2 (08:52→20:02)
[2016-11-14] MEDS: ENOXAPARIN 30MG/0.3ML SYR SUBCUT SCH (08:52)
[2016-11-14 12:31] VITALS: BP 149/98
[2016-11-14 16:15] VITALS: BP 123/87
[2016-11-14 20:00] VITALS: BP 151/91
[2016-11-14] MEDS: ZOLPIDEM TARTRATE 5MG TABLET PO PRN (23:21)
[2016-11-15] VITALS: BP 134/89
[2016-11-15 04:00] VITALS: BP 158/90
[2016-11-15] MEDS: LORAZEPAM 2MG/ML CPJ IV PRN ×3 (06:10→21:20)
[2016-11-15 07:30] LABS: HEMATOCRIT. 28.1 % (36.0-48.0); HEMOGLOBIN. 9.2 g/dL (12.0-16.0); MEAN CORPUSCULAR HEMOGLOBIN 30.2 pg (28.0-32.0); MEAN CORPUSCULAR VOLUME 92.6 fL (81.0-99.0); MEAN PLATELET VOLUME 8.5 fl (7.4-10.4); PLATELET 168 x1000/uL (130-400); RED BLOOD CELL COUNT 3.04 mill/uL (4.2-5.4); RED CELL DISTRIBUTION WIDTH 15.6 % (11.6-14.6)
[2016-11-15 08:00] VITALS: BP 153/109
[2016-11-15] MEDS: PHENYTOIN SODIUM EXTENDED 100MG CAPSULE PO SCH ×3 (08:25→17:27)
[2016-11-15] MEDS: LEVOTHYROXINE SODIUM 50MCG TABLET PO SCH (08:25)
[2016-11-15] MEDS: ASPIRIN 81MG EC TABLET PO SCH (08:26)
[2016-11-15] MEDS: SEVELAMER CARBONATE 800 MG TABLET PO SCH ×3 (08:26→17:27)
[2016-11-15] MEDS: FAMOTIDINE 20MG TABLET PO SCH (08:26)
[2016-11-15] MEDS: AMLODIPINE 10MG TABLET PO SCH (08:27)
[2016-11-15] MEDS: LOSARTAN POTASSIUM 50 MG TABLET PO SCH (08:27)
[2016-11-15] MEDS: CARVEDILOL 12.5MG TABLET PO SCH (08:27)
[2016-11-15] MEDS: FUROSEMIDE 40MG TABLET PO SCH ×2 (08:27→17:27)
[2016-11-15] MEDS: ENOXAPARIN 30MG/0.3ML SYR SUBCUT SCH (08:28)
[2016-11-15 08:40] LABS: PLATELET ESTIMATE NORMAL
[2016-11-15 12:00] VITALS: BP 165/117
[2016-11-15] MEDS: DIPHENHYDRAMINE 50MG/ML VIAL IV PRN (12:14)
[2016-11-15 16:00] VITALS: BP 149/106
[2016-11-15 20:00] VITALS: BP 154/109
[2016-11-16] VITALS: BP 154/110
[2016-11-16] MEDS: CARVEDILOL 12.5MG TABLET PO SCH ×2 (00:02→08:08)
[2016-11-16] MEDS: ZOLPIDEM TARTRATE 5MG TABLET PO PRN (00:27)
[2016-11-16] MEDS: DIPHENHYDRAMINE 50MG/ML VIAL IV PRN (01:59)
[2016-11-16] MEDS: CLONIDINE 0.1MG TABLET PO PRN (02:46)
[2016-11-16 04:00] VITALS: BP 144/92
[2016-11-16 05:45] LABS: HEMATOCRIT. 27.1 % (36.0-48.0); MEAN CORPUSCULAR HEMOGLOBIN 30.7 pg (28.0-32.0); MEAN CORPUSCULAR VOLUME 92.3 fL (81.0-99.0); MEAN PLATELET VOLUME 8.5 fl (7.4-10.4); PLATELET 195 x1000/uL (130-400); RED BLOOD CELL COUNT 2.94 mill/uL (4.2-5.4); RED CELL DISTRIBUTION WIDTH 15.5 % (11.6-14.6)
[2016-11-16 08:00] VITALS: BP 147/111
[2016-11-16] MEDS: LOSARTAN POTASSIUM 50 MG TABLET PO SCH (08:08)
[2016-11-16] MEDS: LEVOTHYROXINE SODIUM 50MCG TABLET PO SCH (08:08)
[2016-11-16] MEDS: PHENYTOIN SODIUM EXTENDED 100MG CAPSULE PO SCH ×2 (08:08→12:24)
[2016-11-16] MEDS: FAMOTIDINE 20MG TABLET PO SCH (08:08)
[2016-11-16] MEDS: FUROSEMIDE 40MG TABLET PO SCH (08:08)
[2016-11-16] MEDS: ASPIRIN 81MG EC TABLET PO SCH (08:08)
[2016-11-16] MEDS: AMLODIPINE 10MG TABLET PO SCH (08:08)
[2016-11-16] MEDS: SEVELAMER CARBONATE 800 MG TABLET PO SCH ×2 (08:08→12:24)
[2016-11-16] MEDS: ENOXAPARIN 30MG/0.3ML SYR SUBCUT SCH (08:09)
[2016-11-16 08:11] LABS: PLATELET ESTIMATE NORMAL
[2016-11-16] MEDS: LORAZEPAM 2MG/ML CPJ IV PRN (11:23)
[2016-11-16 12:00] VITALS: BP 147/112
== END 2016-11-16 14:32 | disposition left against medical advice (07) | DRG 640 ==
LOC: ER 22:21 → 7WST 11-13 05:31 → EDBEDREQTM 11-13 05:36 → EDBEDREQ 11-13 05:36 → EDBEDREQSVC 11-13 06:47 → ENRESERV 11-13 11:16
PROVIDERS: ADMIT Internal Medicine; ATTEND Internal Medicine
PROC: 5A1D60Z (ICD-10-PCS; principal; 2016-11-13)
DX: E87.5 Hyperkalemia (principal); N18.6 End stage renal disease; I13.2 Hypertensive heart and chronic kidney disease with heart failure and with stage 5 chronic kidney disease, or end stage renal disease; D63.8 Anemia in other chronic diseases classified elsewhere; E16.2 Hypoglycemia, unspecified; E03.9 Hypothyroidism, unspecified; E78.5 Hyperlipidemia, unspecified; Z53.21 Procedure and treatment not carried out due to patient leaving prior to being seen by health care provider; F17.200 Nicotine dependence, unspecified, uncomplicated; E87.8 Other disorders of electrolyte and fluid balance, not elsewhere classified; I50.9 Heart failure, unspecified; R56.9 Unspecified convulsions; Z91.15 Patient's noncompliance with renal dialysis; Z91.19 Patient's noncompliance with other medical treatment and regimen; Z91.010 Allergy to peanuts; Z79.899 Other long term (current) drug therapy
CPT/HCPCS: 36415; 71010; 80048; 80053; 80061; 82962; 83690; 84439; 84443; 84484; 85025; 93005; 96374; 96375; 96376; 99291; C1893; J1200; J1650; J1815; J2060; J2270; J2405; J3490; J7030

== ENCOUNTER 2016-12-04 12:58 | Inpatient (IN) | payer MEDICARE, MEDICAID ==
[~2016-12-04] VITALS: Ht 170.2 cm; Wt 62.4 kg
[~2016-12-04 12:58] MED LIST changes: +AMLO10TA80 PO; +FAMO20TA8 PO; -METO25TA6 PO; -PROT40 PO; -RANI150C12 PO; +TRAM50TA3 PO; -ZOLP10TA2 PO; -ZOLP10TA6 PO
[2016-12-04] MEDS ORDERED: ONDANSETRON HCL 4MG/2ML VIAL IV STA (14:17)
[2016-12-04] MEDS ORDERED: KETOROLAC 30MG/ML VIAL IV STA (14:17)
[2016-12-04 15:24] LABS: MEAN CORPUSCULAR HEMOGLOBIN 30.9 pg (28.0-32.0); MEAN CORPUSCULAR VOLUME 91.7 fL (81.0-99.0); MEAN PLATELET VOLUME 7.7 fl (7.4-10.4); PLATELET 134 x1000/uL (130-400); RED BLOOD CELL COUNT 2.24 mill/uL (4.2-5.4); RED CELL DISTRIBUTION WIDTH 15.5 % (11.6-14.6)
[2016-12-04 15:26] LABS: HEMATOCRIT. 20.5 % (36.0-48.0); HEMOGLOBIN. 6.9 g/dL (12.0-16.0)
[2016-12-04 15:27] LABS: INR 1.3; PROTHROMBIN TIME 13.6 sec
[2016-12-04] MEDS ORDERED: LORAZEPAM 1MG TABLET PO ONE (15:30)
[2016-12-04 15:37] LABS: CARBON DIOXIDE 24 mEq/L (21-32); CHLORIDE 99 mEq/L (98-107); TROPONIN I 0.02 ng/mL (0.00-0.04)
[2016-12-04 15:50] LABS: HCG SCREEN NEGATIVE
[2016-12-04] MEDS ORDERED: ACETAMINOPHEN 325MG TABLET PO ONE (17:45)
[2016-12-04 17:50] LABS: ATYPICAL LYMPHOCYTES 1
[2016-12-04] MEDS: HYDRALAZINE 20MG/ML VIAL IV PRN (18:43)
[2016-12-04] MEDS ORDERED: CLONIDINE HCL 0.2MG/24HR PATCH TOP SCH (18:45)
[2016-12-04 19:41] LABS: PLATELET ESTIMATE NORMAL
[2016-12-04] MEDS: MORPHINE SULFATE 4 MG/ML CPJ (NOT FOR IM USE) IV PRN (22:24)
[2016-12-04] MEDS: PHENYTOIN SODIUM EXTENDED 100MG CAPSULE PO SCH (22:39)
[2016-12-04] MEDS: LORAZEPAM 2MG/ML CPJ IV PRN (22:39)
[2016-12-04] MEDS: AMLODIPINE 10MG TABLET PO SCH (22:51)
[2016-12-04] MEDS ORDERED: HEPARIN SODIUM 1,000 UNIT/1ML VIAL IV ONE (23:45)
[2016-12-05] MEDS ORDERED: HEPARIN SODIUM 1,000 UNIT/1ML VIAL IV NR (00:30)
[2016-12-05] MEDS: MORPHINE SULFATE 4 MG/ML CPJ (NOT FOR IM USE) IV PRN ×4 (02:36→20:37)
[2016-12-05] MEDS: LORAZEPAM 2MG/ML CPJ IV PRN ×4 (03:54→23:48)
[2016-12-05] MEDS: HYDRALAZINE 20MG/ML VIAL IV PRN (05:16)
[2016-12-05] MEDS: PHENYTOIN SODIUM EXTENDED 100MG CAPSULE PO SCH ×3 (05:22→21:39)
[2016-12-05] MEDS: LEVOTHYROXINE SODIUM 50MCG TABLET PO SCH (08:46)
[2016-12-05] MEDS: SEVELAMER CARBONATE 800 MG TABLET PO SCH ×3 (08:46→18:19)
[2016-12-05] MEDS ORDERED: CLONIDINE HCL 0.2MG/24HR PATCH TD SCH (09:00)
[2016-12-05 09:19] LABS: HEMATOCRIT. 25.7 % (36.0-48.0); HEMOGLOBIN. 8.8 g/dL (12.0-16.0); MEAN CORPUSCULAR HEMOGLOBIN 30.8 pg (28.0-32.0); MEAN CORPUSCULAR VOLUME 89.9 fL (81.0-99.0); PLATELET 131 x1000/uL (130-400); RED BLOOD CELL COUNT 2.86 mill/uL (4.2-5.4); RED CELL DISTRIBUTION WIDTH 16.2 % (11.6-14.6)
[2016-12-05] MEDS: LOSARTAN POTASSIUM 50 MG TABLET PO SCH (10:42)
[2016-12-05] MEDS: FUROSEMIDE 40MG TABLET PO SCH ×2 (10:42→20:34)
[2016-12-05] MEDS: PANTOPRAZOLE SODIUM 40 MG/VIAL IV SCH (10:42)
[2016-12-05] MEDS: AMLODIPINE 10MG TABLET PO SCH (10:42)
[2016-12-05] MEDS: CARVEDILOL 12.5MG TABLET PO SCH ×2 (10:43→20:35)
[2016-12-05 13:29] LABS: PLATELET ESTIMATE NORMAL
[2016-12-06] MEDS: MORPHINE SULFATE 4 MG/ML CPJ (NOT FOR IM USE) IV PRN ×2 (01:19→06:35)
[2016-12-06] MEDS: LEVOTHYROXINE SODIUM 50MCG TABLET PO SCH (06:32)
[2016-12-06] MEDS: PHENYTOIN SODIUM EXTENDED 100MG CAPSULE PO SCH ×3 (06:32→21:03)
[2016-12-06] MEDS: PANTOPRAZOLE SODIUM 40 MG/VIAL IV SCH (08:39)
[2016-12-06] MEDS: SEVELAMER CARBONATE 800 MG TABLET PO SCH ×3 (08:39→17:00)
[2016-12-06] MEDS: LOSARTAN POTASSIUM 50 MG TABLET PO SCH (08:40)
[2016-12-06] MEDS: AMLODIPINE 10MG TABLET PO SCH (08:40)
[2016-12-06] MEDS: FUROSEMIDE 40MG TABLET PO SCH ×2 (08:40→21:03)
[2016-12-06] MEDS: CARVEDILOL 12.5MG TABLET PO SCH ×2 (08:40→21:04)
[2016-12-06] MEDS: LORAZEPAM 2MG/ML CPJ IV PRN (08:45)
[2016-12-06 12:55] LABS: BASOPHILS % 0.7 % (0.0-2.0); EOSINOPHILS % 3.7 % (0.0-5.0); HEMATOCRIT. 26.6 % (36.0-48.0); MEAN CORPUSCULAR HEMOGLOBIN 30.2 pg (28.0-32.0); MEAN CORPUSCULAR VOLUME 89.4 fL (81.0-99.0); MEAN PLATELET VOLUME 8.2 fl (7.4-10.4); MONOCYTES % 13.7 % (2.0-8.0); NEUTROPHILS % 65.9 % (40.0-76.0); PLATELET 139 x1000/uL (130-400); RED BLOOD CELL COUNT 2.98 mill/uL (4.2-5.4)
[2016-12-06] MEDS: TRAMADOL 50MG TABLET PO PRN ×2 (13:06→21:43)
[2016-12-06] MEDS: DIPHENHYDRAMINE 50MG/ML VIAL IV PRN ×2 (15:20→21:44)
[2016-12-07] MEDS: PHENYTOIN SODIUM EXTENDED 100MG CAPSULE PO SCH ×2 (05:40→13:09)
[2016-12-07] MEDS: TRAMADOL 50MG TABLET PO PRN (05:41)
[2016-12-07] MEDS: DIPHENHYDRAMINE 50MG/ML VIAL IV PRN (05:41)
[2016-12-07 05:49] LABS: HEMATOCRIT. 26.1 % (36.0-48.0); HEMOGLOBIN. 8.7 g/dL (12.0-16.0); MEAN CORPUSCULAR HEMOGLOBIN 30.2 pg (28.0-32.0); MEAN CORPUSCULAR VOLUME 90.3 fL (81.0-99.0); MEAN PLATELET VOLUME 7.8 fl (7.4-10.4); PLATELET 136 x1000/uL (130-400); RED BLOOD CELL COUNT 2.89 mill/uL (4.2-5.4); RED CELL DISTRIBUTION WIDTH 15.7 % (11.6-14.6)
[2016-12-07] MEDS: LEVOTHYROXINE SODIUM 50MCG TABLET PO SCH (06:38)
[2016-12-07] MEDS: PANTOPRAZOLE SODIUM 40 MG/VIAL IV SCH (08:39)
[2016-12-07] MEDS: SEVELAMER CARBONATE 800 MG TABLET PO SCH ×2 (08:39→13:09)
[2016-12-07] MEDS: CARVEDILOL 12.5MG TABLET PO SCH (08:40)
[2016-12-07] MEDS: AMLODIPINE 10MG TABLET PO SCH (08:40)
[2016-12-07] MEDS: FUROSEMIDE 40MG TABLET PO SCH (08:40)
[2016-12-07] MEDS: LOSARTAN POTASSIUM 50 MG TABLET PO SCH (08:40)
[2016-12-07 13:46] VITALS: BP 123/72
[2016-12-08 07:59] LABS: PLATELET ESTIMATE NORMAL
[2017-03-01] MEDS ORDERED: COR6 PO (21:40)
[2017-03-01] MEDS ORDERED: LEVO25TA7 PO (21:40)
[2017-03-01] MEDS ORDERED: SEVE800T8 PO (21:40)
[2017-03-01] MEDS ORDERED: LOSA50TA20 PO (21:40)
[2017-03-01] MEDS ORDERED: PHEN100C12 PO (21:40)
[2017-04-13] MEDS ORDERED: SEVE800T8 PO (10:54)
[2017-04-13] MEDS ORDERED: LOSA50TA20 PO (10:54)
[2017-04-13] MEDS ORDERED: COR6 PO (10:54)
[2017-04-13] MEDS ORDERED: LEVO25TA7 PO (10:54)
[2017-04-13] MEDS ORDERED: PHEN100C12 PO (10:54)
[2017-04-25] MEDS ORDERED: ZOLP10TA2 PO (05:53)
[2017-04-25] MEDS ORDERED: LORA1TAB PO (05:53)
== END 2016-12-07 14:25 | disposition home or self-care (01) | DRG 291 ==
LOC: ER 13:35 → EDBEDREQ 16:20 → CANRESERV 16:35 → ENRESERV 16:35 → 5EST 18:04 → EDBEDREQSVC 18:05 → ENRESERV 18:14
PROVIDERS: ADMIT Hospitalist; ATTEND Hospitalist
PROC: 5A1D60Z (ICD-10-PCS; 2016-12-04)
PROC: 0W9G3ZZ Drainage of Peritoneal Cavity, Percutaneous Approach (ICD-10-PCS; principal; 2016-12-05)
PROC: 30233N1 Transfusion of Nonautologous Red Blood Cells into Peripheral Vein, Percutaneous Approach (ICD-10-PCS; 2016-12-05)
DX: I13.2 Hypertensive heart and chronic kidney disease with heart failure and with stage 5 chronic kidney disease, or end stage renal disease (principal); N18.6 End stage renal disease; R18.8 Other ascites; D63.1 Anemia in chronic kidney disease; F17.200 Nicotine dependence, unspecified, uncomplicated; E87.70 Fluid overload, unspecified; G40.909 Epilepsy, unspecified, not intractable, without status epilepticus; R14.0 Abdominal distension (gaseous); I16.0 Hypertensive urgency; I50.9 Heart failure, unspecified; G89.29 Other chronic pain; Z91.018 Allergy to other foods; Z99.2 Dependence on renal dialysis; Z79.899 Other long term (current) drug therapy
CPT/HCPCS: 36415; 49083; 71010; 74176; 80048; 80053; 83690; 83880; 84484; 84703; 85025; 85610; 86850; 86870; 86900; 86920; 93005; 96374; 96375; 99291; C9113; J0360; J1200; J1644; J1885; J2060; J2270; J2405; J7030; J7050; P9016

== ENCOUNTER 2017-01-10 14:06 | Inpatient (IN) | payer MEDICARE, MEDICAID ==
[~2017-01-10] VITALS: Ht 170.2 cm; Wt 52.2 kg
[2017-01-10] MEDS ORDERED: ACETAMINOPHEN 325MG TABLET PO ONE (14:45)
[2017-01-10] MEDS ORDERED: CYCLOBENZAPRINE 10MG TABLET PO ONE (14:45)
[2017-01-10] MEDS ORDERED: KETOROLAC 60MG/2ML VIAL IM ONE (16:15)
[2017-01-10 19:54] LABS: INR 1.1; PROTHROMBIN TIME 11.3 sec
[2017-01-10 19:56] LABS: BASOPHILS % 1.3 % (0.0-2.0); EOSINOPHILS % 4.4 % (0.0-5.0); HEMATOCRIT. 39.8 % (36.0-48.0); LYMPHOCYTES % 33.6 % (20.0-50.0); MEAN CORPUSCULAR HEMOGLOBIN 30.6 pg (28.0-32.0); MEAN CORPUSCULAR VOLUME 93.9 fL (81.0-99.0); MEAN PLATELET VOLUME 7.9 fl (7.4-10.4); MONOCYTES % 9.4 % (2.0-8.0); NEUTROPHILS % 51.3 % (40.0-76.0); PLATELET 280 x1000/uL (130-400); RED BLOOD CELL COUNT 4.23 mill/uL (4.2-5.4); RED CELL DISTRIBUTION WIDTH 19.2 % (11.6-14.6)
[2017-01-10] MEDS ORDERED: LABETALOL HCL 20MG/4ML CARPUJECT IV PRN (20:30)
[2017-01-10] MEDS ORDERED: LORAZEPAM 1MG TABLET PO ONE (21:15)
[2017-01-10] MEDS ORDERED: CLONIDINE 0.2MG TABLET PO ONE (21:15)
[2017-01-10] MEDS ORDERED: DOCUSATE SODIUM 100MG CAPSULE PO PRN (21:45)
[2017-01-10] MEDS ORDERED: ONDANSETRON HCL 4MG/2ML VIAL IV PRN (21:45)
[2017-01-10] MEDS ORDERED: IPRATROPIUM/ALBUTEROL 0.5-3(2.5)MG/3ML NEB INH PRN (21:45)
[2017-01-10] MEDS ORDERED: MAGNESIUM/ALUMINUM HYDROXIDE/SIMETHICONE 30ML UDC PO PRN (21:45)
[2017-01-10] MEDS ORDERED: NA PHOS,M-B/NA PHOS,DI-BA ENEMA 118ML PR PRN (21:45)
[2017-01-10] MEDS ORDERED: ACETAMINOPHEN 325MG TABLET PO PRN (21:45)
[2017-01-10] MEDS ORDERED: GUAIFENESIN 200MG/10ML SUGAR FREE UDC PO PRN (21:45)
[2017-01-10 21:53] LABS: BASOPHILS % 1.5 % (0.0-2.0); EOSINOPHILS % 4.4 % (0.0-5.0); HEMOGLOBIN. 12.1 g/dL (12.0-16.0); LYMPHOCYTES % 38.2 % (20.0-50.0); MEAN CORPUSCULAR HEMOGLOBIN 30.6 pg (28.0-32.0); MEAN CORPUSCULAR VOLUME 93.1 fL (81.0-99.0); MEAN PLATELET VOLUME 7.9 fl (7.4-10.4); MONOCYTES % 13.8 % (2.0-8.0); NEUTROPHILS % 42.1 % (40.0-76.0); PLATELET 257 x1000/uL (130-400); RED BLOOD CELL COUNT 3.97 mill/uL (4.2-5.4); RED CELL DISTRIBUTION WIDTH 18.7 % (11.6-14.6)
[2017-01-10 23:15] VITALS: BP 164/116
[2017-01-11] VITALS (7 sets, daily range): BP systolic 147–176; BP diastolic 89–128
[2017-01-11] MEDS: HYDROCODONE/ACETAMINOPHEN 10/325MG TABLET PO PRN ×2 (00:15→20:27)
[2017-01-11] MEDS: CLONIDINE 0.1MG TABLET PO PRN ×3 (00:16→22:33)
[2017-01-11] MEDS: DIPHENHYDRAMINE 50MG/ML VIAL IV PRN ×2 (00:32→10:54)
[2017-01-11 01:40] LABS: TROPONIN I 0.1 ng/mL (0.00-0.04)
[2017-01-11] MEDS: LORAZEPAM 2MG/ML CPJ IV PRN ×2 (02:31→13:04)
[2017-01-11] MEDS ORDERED: ZOLPIDEM TARTRATE 5MG TABLET PO PRN (03:00)
[2017-01-11 07:03] LABS: BASOPHILS % 1.4 % (0.0-2.0); EOSINOPHILS % 5.6 % (0.0-5.0); HEMATOCRIT. 31.1 % (36.0-48.0); HEMOGLOBIN. 10.4 g/dL (12.0-16.0); LYMPHOCYTES % 36.1 % (20.0-50.0); MEAN CORPUSCULAR HEMOGLOBIN 30.9 pg (28.0-32.0); MEAN CORPUSCULAR VOLUME 92.7 fL (81.0-99.0); MONOCYTES % 14.6 % (2.0-8.0); NEUTROPHILS % 42.3 % (40.0-76.0); PLATELET 202 x1000/uL (130-400); RED BLOOD CELL COUNT 3.36 mill/uL (4.2-5.4); RED CELL DISTRIBUTION WIDTH 18.7 % (11.6-14.6)
[2017-01-11] MEDS: LEVOTHYROXINE SODIUM 50MCG TABLET PO SCH (07:13)
[2017-01-11] MEDS: CARVEDILOL 12.5MG TABLET PO SCH ×2 (07:13→20:24)
[2017-01-11] MEDS: FAMOTIDINE 20MG TABLET PO SCH (07:13)
[2017-01-11] MEDS ORDERED: TRAMADOL 50MG TABLET PO PRN (07:15)
[2017-01-11] MEDS: SEVELAMER CARBONATE 800 MG TABLET PO SCH ×3 (07:50→18:11)
[2017-01-11 08:10] LABS: CARBON DIOXIDE 20 mEq/L (21-32); CHLORIDE 102 mEq/L (98-107); LDL CHOLESTEROL 89 mg/dL (5-100); T4 FREE 0.65 ng/dL (0.76-1.46); TROPONIN I 0.08 ng/mL (0.00-0.04)
[2017-01-11 08:12] LABS: HDL CHOLESTEROL 46 mg/dL (40-59)
[2017-01-11] MEDS: FUROSEMIDE 40MG TABLET PO SCH ×2 (09:00→16:31)
[2017-01-11] MEDS: LOSARTAN POTASSIUM 50 MG TABLET PO SCH (09:00)
[2017-01-11] MEDS: PHENYTOIN SODIUM EXTENDED 100MG CAPSULE PO SCH ×3 (09:00→16:33)
[2017-01-11] MEDS: ENOXAPARIN 30MG/0.3ML SYR SUBCUT SCH (09:00)
[2017-01-11] MEDS: ASPIRIN 81MG EC TABLET PO SCH (09:00)
[2017-01-11] MEDS: AMLODIPINE 10MG TABLET PO SCH (09:00)
[2017-01-12] VITALS: BP 136/101
[2017-01-12 04:00] VITALS: BP 154/118
[2017-01-12] MEDS: CLONIDINE 0.1MG TABLET PO PRN (05:05)
[2017-01-12] MEDS: LEVOTHYROXINE SODIUM 50MCG TABLET PO SCH (06:09)
[2017-01-12] MEDS: FAMOTIDINE 20MG TABLET PO SCH (09:08)
[2017-01-12] MEDS: FUROSEMIDE 40MG TABLET PO SCH (09:08)
[2017-01-12] MEDS: PHENYTOIN SODIUM EXTENDED 100MG CAPSULE PO SCH ×2 (09:08→12:25)
[2017-01-12] MEDS: ASPIRIN 81MG EC TABLET PO SCH (09:08)
[2017-01-12] MEDS: AMLODIPINE 10MG TABLET PO SCH (09:08)
[2017-01-12] MEDS: SEVELAMER CARBONATE 800 MG TABLET PO SCH ×2 (09:08→12:25)
[2017-01-12] MEDS: LOSARTAN POTASSIUM 50 MG TABLET PO SCH (09:08)
[2017-01-12] MEDS: CARVEDILOL 12.5MG TABLET PO SCH (09:08)
[2017-01-12] MEDS: ENOXAPARIN 30MG/0.3ML SYR SUBCUT SCH (09:09)
[2017-01-12] MEDS: LORAZEPAM 2MG/ML CPJ IV PRN (09:09)
[2017-01-12 09:15] VITALS: BP 118/63
[2017-01-12 09:42] VITALS: BP 119/66
[2017-01-12 12:22] VITALS: BP 156/111
== END 2017-01-12 12:55 | disposition home or self-care (01) | DRG 291 ==
LOC: ER 14:49 → 6WST 20:22 → ENRESERV 22:16
PROVIDERS: ADMIT Internal Medicine; ATTEND Internal Medicine
PROC: 5A1D00Z (ICD-10-PCS; principal; 2017-01-11)
DX: I13.2 Hypertensive heart and chronic kidney disease with heart failure and with stage 5 chronic kidney disease, or end stage renal disease (principal); N18.6 End stage renal disease; E46 Unspecified protein-calorie malnutrition; Z68.1 Body mass index [BMI] 19.9 or less, adult; D64.9 Anemia, unspecified; E87.5 Hyperkalemia; I25.10 Atherosclerotic heart disease of native coronary artery without angina pectoris; G89.4 Chronic pain syndrome; E03.9 Hypothyroidism, unspecified; F17.200 Nicotine dependence, unspecified, uncomplicated; I50.9 Heart failure, unspecified; Z99.2 Dependence on renal dialysis; I25.2 Old myocardial infarction; Z91.018 Allergy to other foods; Z91.15 Patient's noncompliance with renal dialysis
CPT/HCPCS: 36415; 80048; 80053; 80061; 84439; 84443; 84484; 85025; 85610; 96372; 99285; J1200; J1650; J1885; J2060; J7030

== ENCOUNTER 2017-02-05 19:05 | Emergency (ER) | payer MEDICARE, MEDICAID ==
[~2017-02-05] VITALS: Ht 167.6 cm; Wt 69.0 kg
[~2017-02-05 19:05] MED LIST changes: -FURO40TA5 PO
[2017-02-05] MEDS ORDERED: HYDROCODONE/ACETAMINOPHEN 5/325MG TABLET PO ONE (23:15)
[2017-02-05 23:48] LABS: BASOPHILS % 1.5 % (0.0-2.0); EOSINOPHILS % 7.5 % (0.0-5.0); HEMATOCRIT. 26.5 % (36.0-48.0); HEMOGLOBIN. 8.8 g/dL (12.0-16.0); LYMPHOCYTES % 26.5 % (20.0-50.0); MEAN CORPUSCULAR HEMOGLOBIN 31.2 pg (28.0-32.0); MEAN CORPUSCULAR VOLUME 94.1 fL (81.0-99.0); MEAN PLATELET VOLUME 7.7 fl (7.4-10.4); MONOCYTES % 13.2 % (2.0-8.0); NEUTROPHILS % 51.3 % (40.0-76.0); PLATELET 198 x1000/uL (130-400); RED BLOOD CELL COUNT 2.81 mill/uL (4.2-5.4); RED CELL DISTRIBUTION WIDTH 19.1 % (11.6-14.6)
[2017-02-06] MEDS ORDERED: DIPHENHYDRAMINE 50MG CAPSULE PO ONE
[2017-02-06 00:02] LABS: CARBON DIOXIDE 21 mEq/L (21-32); CHLORIDE 106 mEq/L (98-107); TROPONIN I < 0.02 ng/mL (0.00-0.04)
[2017-02-06] MEDS ORDERED: MORPHINE SULFATE 2 MG/ML CPJ (NOT FOR IM USE) IV ONE (00:45)
[2017-02-06 01:44] VITALS: BP 142/95
[2017-03-01] MEDS ORDERED: PHEN100C12 PO (21:40)
[2017-03-01] MEDS ORDERED: LOSA50TA20 PO (21:40)
[2017-03-01] MEDS ORDERED: SEVE800T8 PO (21:40)
[2017-03-01] MEDS ORDERED: LEVO25TA7 PO (21:40)
[2017-03-01] MEDS ORDERED: COR6 PO (21:40)
[2017-04-13] MEDS ORDERED: PHEN100C12 PO (10:54)
[2017-04-13] MEDS ORDERED: LOSA50TA20 PO (10:54)
[2017-04-13] MEDS ORDERED: LEVO25TA7 PO (10:54)
[2017-04-13] MEDS ORDERED: COR6 PO (10:54)
[2017-04-13] MEDS ORDERED: SEVE800T8 PO (10:54)
== END 2017-02-06 02:00 | disposition home or self-care (01) ==
LOC: ER 19:42
DX: R10.9 Unspecified abdominal pain (principal); M79.89 Other specified soft tissue disorders; I11.0 Hypertensive heart disease with heart failure; I50.9 Heart failure, unspecified; E05.90 Thyrotoxicosis, unspecified without thyrotoxic crisis or storm; Z99.2 Dependence on renal dialysis
CPT/HCPCS: 36415; 71010; 80053; 84484; 85025; 93005; 96374; 99285; J2270; Q0163

== ENCOUNTER 2017-02-14 22:27 | Inpatient (IN) | payer MEDICARE, MEDICAID ==
[~2017-02-14] VITALS: Ht 170.2 cm; Wt 56.7 kg
[2017-02-14] MEDS ORDERED: MORPHINE SULFATE 4 MG/ML CPJ (NOT FOR IM USE) IV STA (23:27)
[2017-02-14] MEDS ORDERED: ONDANSETRON HCL 4MG/2ML VIAL IV STA (23:27)
[2017-02-14 23:53] LABS: BASOPHILS % 2.8 % (0.0-2.0); EOSINOPHILS % 5.9 % (0.0-5.0); HEMATOCRIT. 25.3 % (36.0-48.0); HEMOGLOBIN. 8.5 g/dL (12.0-16.0); LYMPHOCYTES % 36.9 % (20.0-50.0); MEAN CORPUSCULAR HEMOGLOBIN 31.7 pg (28.0-32.0); MEAN CORPUSCULAR VOLUME 93.9 fL (81.0-99.0); MEAN PLATELET VOLUME 8.3 fl (7.4-10.4); MONOCYTES % 8.9 % (2.0-8.0); NEUTROPHILS % 45.5 % (40.0-76.0); PLATELET 177 x1000/uL (130-400); RED BLOOD CELL COUNT 2.69 mill/uL (4.2-5.4); RED CELL DISTRIBUTION WIDTH 18.2 % (11.6-14.6)
[2017-02-14 23:59] LABS: INR 1.2; PARTIAL THROMBOPLASTIN TIME 24.7 sec (23.4-31.0); PROTHROMBIN TIME 12.1 sec (9.4-11.6)
[2017-02-15 00:06] LABS: CARBON DIOXIDE 28 mEq/L (21-32); CHLORIDE 99 mEq/L (98-107); TROPONIN I < 0.02 ng/mL (0.00-0.04)
[2017-02-15] MEDS ORDERED: DIPHENHYDRAMINE 50MG/ML VIAL IV ONE (02:15)
[2017-02-15] MEDS ORDERED: CLONIDINE 0.2MG TABLET PO ONE (03:30)
[2017-02-15] MEDS ORDERED: ONDANSETRON HCL 4MG/2ML VIAL IV PRN (03:45)
[2017-02-15] MEDS ORDERED: CLONIDINE 0.1MG TABLET PO PRN (03:45)
[2017-02-15] MEDS ORDERED: MAGNESIUM/ALUMINUM HYDROXIDE/SIMETHICONE 30ML UDC PO PRN (03:45)
[2017-02-15] MEDS ORDERED: IPRATROPIUM/ALBUTEROL 0.5-3(2.5)MG/3ML NEB INH PRN (03:45)
[2017-02-15 04:55] VITALS: BP 163/117
[2017-02-15] MEDS: LORAZEPAM 1MG TABLET PO PRN ×3 (05:26→22:39)
[2017-02-15] MEDS: TRAMADOL 50MG TABLET PO PRN (05:27)
[2017-02-15] MEDS: SODIUM CHLORIDE 0.9% INJ 3ML FLUSH IVF SCH ×3 (06:26→21:42)
[2017-02-15] MEDS: ISOSORB DINIT/HYDRALAZINE HCL 20/37.5MG TABLET PO SCH ×3 (06:26→21:43)
[2017-02-15] MEDS: PANTOPRAZOLE 40MG DR TABLET PO SCH (06:26)
[2017-02-15] MEDS: LEVOTHYROXINE SODIUM 50MCG TABLET PO SCH (06:28)
[2017-02-15] MEDS: SEVELAMER CARBONATE 800 MG TABLET PO SCH ×3 (07:40→16:52)
[2017-02-15 08:00] VITALS: BP 124/85
[2017-02-15] MEDS: IPRATROPIUM/ALBUTEROL 0.5-3(2.5)MG/3ML NEB HHN SCH ×4 (08:09→22:11)
[2017-02-15] MEDS: CARVEDILOL 12.5MG TABLET PO SCH ×2 (08:32→20:25)
[2017-02-15] MEDS: FAMOTIDINE 20MG TABLET PO SCH (08:33)
[2017-02-15] MEDS: PHENYTOIN SODIUM EXTENDED 100MG CAPSULE PO SCH ×3 (08:33→16:00)
[2017-02-15] MEDS: LOSARTAN POTASSIUM 50 MG TABLET PO SCH (08:33)
[2017-02-15] MEDS ORDERED: SODIUM BICARBONATE 4.2% 5 MEQ/10 ML DISP.SYRIN IV ONE (09:59)
[2017-02-15] MEDS ORDERED: LIDOCAINE HCL 1% 20ML VIAL (Pyxis) INJ ONE (09:59)
[2017-02-15 12:00] VITALS: BP 168/119
[2017-02-15] MEDS: ACETAMINOPHEN 325MG TABLET PO PRN (12:05)
[2017-02-15 16:00] VITALS: BP 155/109
[2017-02-15 20:00] VITALS: BP 157/110
[2017-02-15] MEDS: DIPHENHYDRAMINE 50MG/ML VIAL IV PRN (20:25)
[2017-02-16] VITALS: BP 149/103
[2017-02-16] MEDS: IPRATROPIUM/ALBUTEROL 0.5-3(2.5)MG/3ML NEB HHN SCH ×5 (00:18→20:05)
[2017-02-16] MEDS: TRAMADOL 50MG TABLET PO PRN (00:36)
[2017-02-16] MEDS: DIPHENHYDRAMINE 50MG/ML VIAL IV PRN ×3 (00:42→15:18)
[2017-02-16 04:00] VITALS: BP 133/96
[2017-02-16] MEDS: SODIUM CHLORIDE 0.9% INJ 3ML FLUSH IVF SCH ×3 (06:01→21:42)
[2017-02-16] MEDS: ISOSORB DINIT/HYDRALAZINE HCL 20/37.5MG TABLET PO SCH ×3 (06:01→21:42)
[2017-02-16] MEDS: PANTOPRAZOLE 40MG DR TABLET PO SCH (06:31)
[2017-02-16] MEDS: LEVOTHYROXINE SODIUM 50MCG TABLET PO SCH (06:31)
[2017-02-16 06:52] LABS: BASOPHILS % 1.9 % (0.0-2.0); EOSINOPHILS % 4.6 % (0.0-5.0); HEMATOCRIT. 23.3 % (36.0-48.0); HEMOGLOBIN. 7.9 g/dL (12.0-16.0); LYMPHOCYTES % 26.1 % (20.0-50.0); MEAN CORPUSCULAR HEMOGLOBIN 32.2 pg (28.0-32.0); MEAN CORPUSCULAR VOLUME 94.4 fL (81.0-99.0); MEAN PLATELET VOLUME 8.7 fl (7.4-10.4); MONOCYTES % 11.6 % (2.0-8.0); NEUTROPHILS % 55.8 % (40.0-76.0); PLATELET 144 x1000/uL (130-400); RED BLOOD CELL COUNT 2.47 mill/uL (4.2-5.4); RED CELL DISTRIBUTION WIDTH 17.2 % (11.6-14.6)
[2017-02-16 08:06] VITALS: BP 128/90
[2017-02-16] MEDS: SEVELAMER CARBONATE 800 MG TABLET PO SCH ×3 (08:29→17:32)
[2017-02-16] MEDS: LOSARTAN POTASSIUM 50 MG TABLET PO SCH (08:31)
[2017-02-16] MEDS: FAMOTIDINE 20MG TABLET PO SCH (08:31)
[2017-02-16] MEDS: PHENYTOIN SODIUM EXTENDED 100MG CAPSULE PO SCH ×3 (08:31→17:33)
[2017-02-16] MEDS: LORAZEPAM 1MG TABLET PO PRN ×2 (08:31→17:33)
[2017-02-16] MEDS: CARVEDILOL 12.5MG TABLET PO SCH ×2 (08:33→20:44)
[2017-02-16 12:00] VITALS: BP 111/76
[2017-02-16] MEDS: ACETAMINOPHEN 325MG TABLET PO PRN (15:18)
[2017-02-16 16:00] VITALS: BP 134/100
[2017-02-16 20:00] VITALS: BP 132/83
[2017-02-16] MEDS ORDERED: EPOETIN ALFA 10000UNITS/ML VIAL SUBCUT SCH (21:00)
[2017-02-16] MEDS: ZOLPIDEM TARTRATE 5MG TABLET PO PRN (21:42)
[2017-02-17] VITALS: BP 117/77
[2017-02-17 04:00] VITALS: BP 132/83
[2017-02-17] MEDS: SODIUM CHLORIDE 0.9% INJ 3ML FLUSH IVF SCH ×2 (06:33→13:03)
[2017-02-17] MEDS: LEVOTHYROXINE SODIUM 50MCG TABLET PO SCH (06:33)
[2017-02-17] MEDS: ISOSORB DINIT/HYDRALAZINE HCL 20/37.5MG TABLET PO SCH ×2 (06:33→13:00)
[2017-02-17] MEDS: DIPHENHYDRAMINE 50MG/ML VIAL IV PRN ×3 (06:47→21:36)
[2017-02-17] MEDS: LORAZEPAM 1MG TABLET PO PRN ×3 (06:47→21:36)
[2017-02-17 07:05] LABS: EOSINOPHILS % 6.2 % (0.0-5.0); HEMATOCRIT. 23.1 % (36.0-48.0); HEMOGLOBIN. 7.8 g/dL (12.0-16.0); MEAN CORPUSCULAR VOLUME 94.8 fL (81.0-99.0); MEAN PLATELET VOLUME 8.6 fl (7.4-10.4); MONOCYTES % 14.1 % (2.0-8.0); NEUTROPHILS % 49.7 % (40.0-76.0); PLATELET 149 x1000/uL (130-400); RED BLOOD CELL COUNT 2.43 mill/uL (4.2-5.4)
[2017-02-17] MEDS: IPRATROPIUM/ALBUTEROL 0.5-3(2.5)MG/3ML NEB HHN SCH ×4 (07:54→20:00)
[2017-02-17 08:46] VITALS: BP 132/91
[2017-02-17] MEDS: LOSARTAN POTASSIUM 50 MG TABLET PO SCH (09:00)
[2017-02-17] MEDS: TRAMADOL 50MG TABLET PO PRN (09:02)
[2017-02-17] MEDS: SEVELAMER CARBONATE 800 MG TABLET PO SCH ×3 (09:03→18:00)
[2017-02-17] MEDS: PHENYTOIN SODIUM EXTENDED 100MG CAPSULE PO SCH ×3 (09:03→18:00)
[2017-02-17] MEDS: CARVEDILOL 12.5MG TABLET PO SCH ×2 (09:03→20:39)
[2017-02-17] MEDS: FAMOTIDINE 20MG TABLET PO SCH (09:03)
[2017-02-17 12:00] VITALS: BP 128/93
[2017-02-17 16:00] VITALS: BP 109/90
[2017-02-17 20:00] VITALS: BP 119/77
[2017-02-17] MEDS: ZOLPIDEM TARTRATE 5MG TABLET PO PRN (23:03)
[2017-02-18] VITALS: BP 122/77
[2017-02-18] MEDS: ISOSORB DINIT/HYDRALAZINE HCL 20/37.5MG TABLET PO SCH ×2 (00:06→06:17)
[2017-02-18] MEDS: SODIUM CHLORIDE 0.9% INJ 3ML FLUSH IVF SCH ×2 (00:06→06:15)
[2017-02-18] MEDS: IPRATROPIUM/ALBUTEROL 0.5-3(2.5)MG/3ML NEB HHN SCH ×3 (00:25→08:00)
[2017-02-18 04:00] VITALS: BP 125/86
[2017-02-18] MEDS: LEVOTHYROXINE SODIUM 50MCG TABLET PO SCH (06:15)
[2017-02-18] MEDS: DIPHENHYDRAMINE 50MG/ML VIAL IV PRN (06:46)
[2017-02-18] MEDS: LORAZEPAM 1MG TABLET PO PRN (06:46)
[2017-02-18 08:00] VITALS: BP 109/68
[2017-02-18] MEDS: PHENYTOIN SODIUM EXTENDED 100MG CAPSULE PO SCH (08:19)
[2017-02-18] MEDS: SEVELAMER CARBONATE 800 MG TABLET PO SCH (08:19)
[2017-02-18] MEDS: LOSARTAN POTASSIUM 50 MG TABLET PO SCH (08:20)
[2017-02-18] MEDS: CARVEDILOL 12.5MG TABLET PO SCH (08:20)
[2017-02-18] MEDS: FAMOTIDINE 20MG TABLET PO SCH (08:20)
[2017-02-18 09:57] LABS: BASOPHILS % 1.3 % (0.0-2.0); EOSINOPHILS % 6.5 % (0.0-5.0); HEMOGLOBIN. 9.4 g/dL (12.0-16.0); LYMPHOCYTES % 26.4 % (20.0-50.0); MEAN CORPUSCULAR HEMOGLOBIN 32.4 pg (28.0-32.0); MEAN PLATELET VOLUME 8.5 fl (7.4-10.4); MONOCYTES % 10.7 % (2.0-8.0); NEUTROPHILS % 55.1 % (40.0-76.0); PLATELET 170 x1000/uL (130-400); RED BLOOD CELL COUNT 2.91 mill/uL (4.2-5.4); RED CELL DISTRIBUTION WIDTH 17.6 % (11.6-14.6)
[2017-02-18 10:30] VITALS: BP 107/69
[2017-02-18] MEDS ORDERED: POTASSIUM CHLORIDE 8 MEQ TABLET.SA PO NR (11:00)
[2017-03-01] MEDS ORDERED: SEVE800T8 PO (21:40)
[2017-03-01] MEDS ORDERED: LEVO25TA7 PO (21:40)
[2017-03-01] MEDS ORDERED: PHEN100C12 PO (21:40)
[2017-03-01] MEDS ORDERED: COR6 PO (21:40)
[2017-03-01] MEDS ORDERED: LOSA50TA20 PO (21:40)
[2017-04-13] MEDS ORDERED: COR6 PO (10:54)
[2017-04-13] MEDS ORDERED: LOSA50TA20 PO (10:54)
[2017-04-13] MEDS ORDERED: SEVE800T8 PO (10:54)
[2017-04-13] MEDS ORDERED: PHEN100C12 PO (10:54)
[2017-04-13] MEDS ORDERED: LEVO25TA7 PO (10:54)
== END 2017-02-18 13:05 | disposition home or self-care (01) | DRG 441 ==
LOC: ER 22:50 → 8WST 02-15 01:52 → EDBEDREQ 02-15 01:56 → EDBEDREQTM 02-15 01:56 → ENRESERV 02-15 02:53
PROVIDERS: ADMIT Internal Medicine; ATTEND Internal Medicine
PROC: 0W9G3ZZ Drainage of Peritoneal Cavity, Percutaneous Approach (ICD-10-PCS; principal; 2017-02-15)
PROC: 5A1D60Z (ICD-10-PCS; 2017-02-15)
DX: K72.90 Hepatic failure, unspecified without coma (principal); N18.6 End stage renal disease; I50.23 Acute on chronic systolic (congestive) heart failure; R18.8 Other ascites; I13.2 Hypertensive heart and chronic kidney disease with heart failure and with stage 5 chronic kidney disease, or end stage renal disease; K74.60 Unspecified cirrhosis of liver; D64.9 Anemia, unspecified; F31.9 Bipolar disorder, unspecified; E03.9 Hypothyroidism, unspecified; F41.1 Generalized anxiety disorder; G40.909 Epilepsy, unspecified, not intractable, without status epilepticus; K21.9 Gastro-esophageal reflux disease without esophagitis; Z99.2 Dependence on renal dialysis; Z91.018 Allergy to other foods; Z79.899 Other long term (current) drug therapy; Z91.19 Patient's noncompliance with other medical treatment and regimen; Z83.3 Family history of diabetes mellitus; Z82.49 Family history of ischemic heart disease and other diseases of the circulatory system
CPT/HCPCS: 36415; 49083; 71010; 76700; 80048; 80053; 83690; 83880; 84484; 85025; 85610; 85730; 93005; 94640; 96374; 96375; 99285; J0885; J1200; J2270; J2405; J3490; J7030; J7620

== ENCOUNTER 2017-02-23 15:30 | Inpatient (IN) | payer MEDICARE, MEDICAID ==
[~2017-02-23] VITALS: Ht 170.2 cm; Wt 56.7 kg
[2017-02-23] MEDS ORDERED: MORPHINE SULFATE 4 MG/ML CPJ (NOT FOR IM USE) IV STA (15:52)
[2017-02-23] MEDS ORDERED: ONDANSETRON HCL 4MG/2ML VIAL IV STA (15:52)
[2017-02-23 16:37] LABS: BASOPHILS % 3.1 % (0.0-2.0); EOSINOPHILS % 2.6 % (0.0-5.0); HEMATOCRIT. 24.5 % (36.0-48.0); HEMOGLOBIN. 8.3 g/dL (12.0-16.0); LYMPHOCYTES % 20.9 % (20.0-50.0); MEAN CORPUSCULAR HEMOGLOBIN 32.4 pg (28.0-32.0); MEAN CORPUSCULAR VOLUME 95.3 fL (81.0-99.0); MONOCYTES % 14.7 % (2.0-8.0); NEUTROPHILS % 58.7 % (40.0-76.0); PLATELET 202 x1000/uL (130-400); RED BLOOD CELL COUNT 2.57 mill/uL (4.2-5.4)
[2017-02-23 16:44] LABS: INR 1.2; PROTHROMBIN TIME 12.1 sec (9.4-11.6)
[2017-02-23 16:52] LABS: CARBON DIOXIDE 14 mEq/L (21-32)
[2017-02-23 16:54] LABS: CHLORIDE 102 mEq/L (98-107)
[2017-02-23] MEDS ORDERED: DEXTROSE 50% WATER 50ML SYRINGE IV ONE ×2 (17:45→21:00)
[2017-02-23] MEDS ORDERED: SODIUM BICARBONATE 8.4% 1 MEQ/ML 50ML SYR IV ONE (17:45)
[2017-02-23] MEDS ORDERED: ALBUTEROL (0.083%) 2.5MG/3ML NEB HHN ONE (17:45)
[2017-02-23] MEDS ORDERED: CALCIUM CHLORIDE 1GM/10ML SYR IV ONE (17:45)
[2017-02-23] MEDS ORDERED: INSULIN REGULAR (HUMULIN R) 300UNITS/3ML IV ONE (17:45)
[2017-02-23] MEDS ORDERED: LORAZEPAM 2MG/ML CPJ IV ONE (20:15)
[2017-02-23 21:10] VITALS: BP 177/135
[2017-02-23] MEDS ORDERED: ACETAMINOPHEN 650MG SUPP PR PRN (23:00)
[2017-02-23] MEDS ORDERED: DIPHENHYDRAMINE 50MG/ML VIAL IV PRN (23:00)
[2017-02-23] MEDS ORDERED: ONDANSETRON HCL 4MG/2ML VIAL IV PRN (23:00)
[2017-02-23] MEDS ORDERED: NA PHOS,M-B/NA PHOS,DI-BA ENEMA 118ML PR PRN (23:00)
[2017-02-23] MEDS ORDERED: MAGNESIUM/ALUMINUM HYDROXIDE/SIMETHICONE 30ML UDC PO PRN (23:00)
[2017-02-23] MEDS ORDERED: CLONIDINE 0.1MG TABLET PO PRN (23:00)
[2017-02-23] MEDS ORDERED: ENOXAPARIN 40MG/0.4ML SYR SUBCUT SCH (23:00)
[2017-02-23] MEDS ORDERED: ACETAMINOPHEN 325MG TABLET PO PRN (23:00)
[2017-02-23] MEDS ORDERED: ACETAMINOPHEN 650MG/20.3ML UDC GT PRN (23:00)
[2017-02-23] MEDS ORDERED: DOCUSATE SODIUM 100MG CAPSULE PO PRN (23:00)
[2017-02-23] MEDS ORDERED: GUAIFENESIN 200MG/10ML SUGAR FREE UDC PO PRN (23:00)
[2017-02-23] MEDS ORDERED: IPRATROPIUM/ALBUTEROL 0.5-3(2.5)MG/3ML NEB INH PRN (23:00)
[2017-02-23] MEDS: AMLODIPINE 10MG TABLET PO SCH (23:15)
[2017-02-23] MEDS ORDERED: TRAMADOL 50MG TABLET PO PRN (23:15)
[2017-02-23] MEDS: NICOTINE 21MG PATCH TD SCH (23:15)
[2017-02-23] MEDS: LOSARTAN POTASSIUM 50 MG TABLET PO SCH (23:15)
[2017-02-23] MEDS: PHENYTOIN SODIUM EXTENDED 100MG CAPSULE PO SCH (23:41)
[2017-02-23] MEDS: PANTOPRAZOLE 40MG DR TABLET PO SCH (23:41)
[2017-02-23] MEDS: CARVEDILOL 6.25 MG TABLET PO SCH (23:42)
[2017-02-23] MEDS: LEVOTHYROXINE SODIUM 25MCG TABLET PO SCH (23:46)
[2017-02-23] MEDS: HYDROCODONE/ACETAMINOPHEN 5/325MG TABLET PO PRN (23:46)
[2017-02-24] VITALS: BP 178/132
[2017-02-24] MEDS ORDERED: CLONIDINE 0.1MG TABLET PO PRN (00:15)
[2017-02-24] MEDS: NICOTINE 21MG PATCH TD SCH (02:55)
[2017-02-24 04:00] VITALS: BP 155/108
[2017-02-24] MEDS: SODIUM CHLORIDE 0.9% INJ 3ML FLUSH IVF SCH ×2 (06:02→07:54)
[2017-02-24 07:04] LABS: HEMATOCRIT. 23.2 % (36.0-48.0); HEMOGLOBIN. 7.8 g/dL (12.0-16.0); MEAN CORPUSCULAR HEMOGLOBIN 31.9 pg (28.0-32.0); MEAN CORPUSCULAR VOLUME 95.3 fL (81.0-99.0); MEAN PLATELET VOLUME 7.2 fl (7.4-10.4); PLATELET 156 x1000/uL (130-400); RED BLOOD CELL COUNT 2.44 mill/uL (4.2-5.4); RED CELL DISTRIBUTION WIDTH 17.9 % (11.6-14.6)
[2017-02-24 07:14] LABS: TROPONIN I 0.05 ng/mL (0.00-0.04)
[2017-02-24 08:00] VITALS: BP 155/99
[2017-02-24] MEDS: AMLODIPINE 10MG TABLET PO SCH (08:30)
[2017-02-24] MEDS: PHENYTOIN SODIUM EXTENDED 100MG CAPSULE PO SCH ×2 (08:30→17:26)
[2017-02-24] MEDS: LOSARTAN POTASSIUM 50 MG TABLET PO SCH (08:31)
[2017-02-24] MEDS: PANTOPRAZOLE 40MG DR TABLET PO SCH (08:31)
[2017-02-24] MEDS: LEVOTHYROXINE SODIUM 25MCG TABLET PO SCH (08:31)
[2017-02-24] MEDS: HYDROCODONE/ACETAMINOPHEN 5/325MG TABLET PO PRN (08:33)
[2017-02-24] MEDS: SEVELAMER CARBONATE 800 MG TABLET PO SCH ×2 (08:35→13:10)
[2017-02-24] MEDS ORDERED: FAMOTIDINE 20MG TABLET PO SCH (09:00)
[2017-02-24] MEDS: CARVEDILOL 6.25 MG TABLET PO SCH (09:00)
[2017-02-24] MEDS ORDERED: ENOXAPARIN 30MG/0.3ML SYR SUBCUT SCH (09:00)
[2017-02-24 14:30] LABS: NUCLEATED RED BLOOD CELLS 4 /100 WBC; PLATELET ESTIMATE NORMAL
[2017-02-24 16:57] VITALS: BP 146/70
[2017-02-24 17:01] LABS: TROPONIN I 0.03 ng/mL (0.00-0.04)
[2017-02-24] MEDS ORDERED: CARVEDILOL 12.5MG TABLET PO SCH (21:00)
== END 2017-02-24 17:35 | disposition home or self-care (01) | DRG 291 ==
LOC: ER 15:30 → 7WST 18:17 → ENRESERV 19:10 → 7WST 22:23
PROVIDERS: ADMIT Family Medicine; ATTEND Family Medicine
DX: I13.2 Hypertensive heart and chronic kidney disease with heart failure and with stage 5 chronic kidney disease, or end stage renal disease (principal); N18.6 End stage renal disease; E87.2 Acidosis; E11.22 Type 2 diabetes mellitus with diabetic chronic kidney disease; R18.8 Other ascites; K72.90 Hepatic failure, unspecified without coma; E87.5 Hyperkalemia; D63.8 Anemia in other chronic diseases classified elsewhere; E03.9 Hypothyroidism, unspecified; F14.90 Cocaine use, unspecified, uncomplicated; F17.200 Nicotine dependence, unspecified, uncomplicated; L27.2 Dermatitis due to ingested food; F41.9 Anxiety disorder, unspecified; I50.9 Heart failure, unspecified; I25.2 Old myocardial infarction; Z91.19 Patient's noncompliance with other medical treatment and regimen; Z91.018 Allergy to other foods; Z79.899 Other long term (current) drug therapy; Z91.15 Patient's noncompliance with renal dialysis
CPT/HCPCS: 36415; 71010; 80051; 80053; 82550; 82962; 83690; 84484; 85025; 85610; 87040; 93005; 93306; 94640; 96374; 96375; 99285; G0482; J1200; J1650; J1815; J2060; J2270; J2405; J3490; J7030; J7611

== ENCOUNTER 2017-02-28 22:39 | Inpatient (IN) | payer MEDICARE, MEDICAID ==
[~2017-02-28] VITALS: Ht 170.2 cm; Wt 55.8 kg
[2017-02-28] MEDS ORDERED: ONDANSETRON HCL 4MG/2ML VIAL IV STA (22:50)
[2017-02-28] MEDS ORDERED: MORPHINE SULFATE 4 MG/ML CPJ (NOT FOR IM USE) IV STA (22:50)
[2017-02-28] MEDS ORDERED: LABETALOL HCL 20MG/4ML CARPUJECT IV ONE (23:00)
[2017-02-28] MEDS ORDERED: ASPIRIN 81MG TABLET PO ONE (23:00)
[2017-02-28 23:40] LABS: BASOPHILS % 1.1 % (0.0-2.0); EOSINOPHILS % 5.9 % (0.0-5.0); HEMATOCRIT. 23.2 % (36.0-48.0); HEMOGLOBIN. 7.9 g/dL (12.0-16.0); LYMPHOCYTES % 36.2 % (20.0-50.0); MEAN CORPUSCULAR HEMOGLOBIN 32.3 pg (28.0-32.0); MEAN CORPUSCULAR VOLUME 95.5 fL (81.0-99.0); MEAN PLATELET VOLUME 8.3 fl (7.4-10.4); MONOCYTES % 12.7 % (2.0-8.0); NEUTROPHILS % 44.1 % (40.0-76.0); PLATELET 176 x1000/uL (130-400); RED BLOOD CELL COUNT 2.43 mill/uL (4.2-5.4); RED CELL DISTRIBUTION WIDTH 17.4 % (11.6-14.6)
[2017-02-28 23:50] LABS: INR 1.1; PARTIAL THROMBOPLASTIN TIME 22.9 sec (23.4-31.0); PROTHROMBIN TIME 11.1 sec (9.4-11.6)
[2017-02-28 23:58] LABS: CARBON DIOXIDE 28 mEq/L (21-32); CHLORIDE 103 mEq/L (98-107); ETHANOL BLOOD 176 mg/dL; TROPONIN I < 0.02 ng/mL (0.00-0.04)
[2017-03-01] MEDS ORDERED: LORAZEPAM 1MG TABLET PO ONE (00:15)
[2017-03-01 07:47] LABS: T4 FREE 0.72 ng/dL (0.76-1.46)
[2017-03-01 09:45] VITALS: BP 139/104
[2017-03-01 12:00] VITALS: BP 148/100
[2017-03-01 15:11] LABS: CREATINE KINASE 31 IU/L (26-192); CREATINE KINASE MB FRACTION 1.7 ng/mL (0.5-3.6); TROPONIN I < 0.02 ng/mL (0.00-0.04)
[2017-03-01] MEDS: CHLORDIAZEPOXIDE 25MG CAPSULE PO SCH ×2 (15:36→20:44)
[2017-03-01] MEDS: LEVOTHYROXINE SODIUM 25MCG TABLET PO SCH (15:36)
[2017-03-01] MEDS: TRAMADOL 50MG TABLET PO PRN (15:37)
[2017-03-01 16:00] VITALS: BP 149/102
[2017-03-01] MEDS: DIPHENHYDRAMINE 50MG/ML VIAL IV PRN ×2 (17:06→22:55)
[2017-03-01] MEDS: PHENYTOIN SODIUM EXTENDED 100MG CAPSULE PO SCH (17:06)
[2017-03-01] MEDS: LOSARTAN POTASSIUM 50 MG TABLET PO SCH (17:14)
[2017-03-01] MEDS: SEVELAMER CARBONATE 800 MG TABLET PO SCH (18:53)
[2017-03-01 20:00] VITALS: BP 138/98
[2017-03-01] MEDS: CARVEDILOL 12.5MG TABLET PO SCH (20:45)
[2017-03-01] MEDS ORDERED: SEVE800T8 PO (21:40)
[2017-03-01] MEDS ORDERED: PHEN100C12 PO (21:40)
[2017-03-01] MEDS ORDERED: COR6 PO (21:40)
[2017-03-01] MEDS ORDERED: LEVO25TA7 PO (21:40)
[2017-03-01] MEDS ORDERED: LOSA50TA20 PO (21:40)
[2017-03-01 22:45] LABS: BASOPHILS % 1.2 % (0.0-2.0); EOSINOPHILS % 5.5 % (0.0-5.0); HEMATOCRIT. 23.6 % (36.0-48.0); LYMPHOCYTES % 28.6 % (20.0-50.0); MEAN CORPUSCULAR HEMOGLOBIN 32.6 pg (28.0-32.0); MEAN PLATELET VOLUME 7.9 fl (7.4-10.4); MONOCYTES % 14.8 % (2.0-8.0); NEUTROPHILS % 49.9 % (40.0-76.0); PLATELET 147 x1000/uL (130-400); RED BLOOD CELL COUNT 2.44 mill/uL (4.2-5.4); RED CELL DISTRIBUTION WIDTH 16.8 % (11.6-14.6)
[2017-03-01 22:55] LABS: CHLORIDE 104 mEq/L (98-107)
[2017-03-01 23:06] LABS: CARBON DIOXIDE 30 mEq/L (21-32); CREATINE KINASE 28 IU/L (26-192)
[2017-03-01 23:07] LABS: CREATINE KINASE MB FRACTION 1.3 ng/mL (0.5-3.6); TROPONIN I < 0.02 ng/mL (0.00-0.04)
[2017-03-02] VITALS (9 sets, daily range): BP systolic 121–151; BP diastolic 86–109
[2017-03-02] MEDS: TRAMADOL 50MG TABLET PO PRN (03:39)
[2017-03-02] MEDS: CHLORDIAZEPOXIDE 25MG CAPSULE PO SCH ×2 (05:10→13:52)
[2017-03-02] MEDS: DIPHENHYDRAMINE 50MG/ML VIAL IV PRN ×3 (05:10→18:57)
[2017-03-02 06:46] LABS: BASOPHILS % 0.7 % (0.0-2.0); EOSINOPHILS % 6.6 % (0.0-5.0); HEMATOCRIT. 22.9 % (36.0-48.0); HEMOGLOBIN. 7.7 g/dL (12.0-16.0); LYMPHOCYTES % 29.2 % (20.0-50.0); MEAN CORPUSCULAR HEMOGLOBIN 32.4 pg (28.0-32.0); MEAN CORPUSCULAR VOLUME 96.9 fL (81.0-99.0); MEAN PLATELET VOLUME 8.8 fl (7.4-10.4); MONOCYTES % 13.1 % (2.0-8.0); NEUTROPHILS % 50.4 % (40.0-76.0); PLATELET 173 x1000/uL (130-400); RED BLOOD CELL COUNT 2.37 mill/uL (4.2-5.4); RED CELL DISTRIBUTION WIDTH 16.9 % (11.6-14.6)
[2017-03-02 07:10] LABS: CARBON DIOXIDE 30 mEq/L (21-32); CHLORIDE 103 mEq/L (98-107); CREATINE KINASE 57 IU/L (26-192); CREATINE KINASE MB FRACTION 1.2 ng/mL (0.5-3.6); TROPONIN I < 0.02 ng/mL (0.00-0.04)
[2017-03-02] MEDS ORDERED: TRAMADOL 50MG TABLET PO PRN (09:00)
[2017-03-02] MEDS: SEVELAMER CARBONATE 800 MG TABLET PO SCH ×3 (09:19→18:17)
[2017-03-02] MEDS: LEVOTHYROXINE SODIUM 25MCG TABLET PO SCH (09:19)
[2017-03-02] MEDS: PHENYTOIN SODIUM EXTENDED 100MG CAPSULE PO SCH ×3 (09:19→18:17)
[2017-03-02] MEDS: LOSARTAN POTASSIUM 50 MG TABLET PO SCH (09:20)
[2017-03-02] MEDS: CARVEDILOL 12.5MG TABLET PO SCH (09:20)
== END 2017-03-02 20:40 | disposition home or self-care (01) | DRG 291 ==
LOC: ER 22:47 → 7WST 03-01 02:43
PROVIDERS: ADMIT Family Medicine; ATTEND Family Medicine
PROC: 5A1D00Z (ICD-10-PCS; principal; 2017-03-01)
PROC: 30233N1 Transfusion of Nonautologous Red Blood Cells into Peripheral Vein, Percutaneous Approach (ICD-10-PCS; 2017-03-01)
DX: I13.2 Hypertensive heart and chronic kidney disease with heart failure and with stage 5 chronic kidney disease, or end stage renal disease (principal); E43 Unspecified severe protein-calorie malnutrition; N18.6 End stage renal disease; N25.81 Secondary hyperparathyroidism of renal origin; Z68.1 Body mass index [BMI] 19.9 or less, adult; D64.9 Anemia, unspecified; E03.9 Hypothyroidism, unspecified; E78.5 Hyperlipidemia, unspecified; F17.200 Nicotine dependence, unspecified, uncomplicated; G40.909 Epilepsy, unspecified, not intractable, without status epilepticus; Y90.9 Presence of alcohol in blood, level not specified; F10.20 Alcohol dependence, uncomplicated; I50.9 Heart failure, unspecified; Z91.018 Allergy to other foods; Z91.19 Patient's noncompliance with other medical treatment and regimen; Z99.2 Dependence on renal dialysis; I25.2 Old myocardial infarction; E05.90 Thyrotoxicosis, unspecified without thyrotoxic crisis or storm; Z79.899 Other long term (current) drug therapy; Z91.15 Patient's noncompliance with renal dialysis
CPT/HCPCS: 36415; 71010; 80048; 80053; 80061; 82550; 82553; 83036; 83690; 83880; 84439; 84443; 84484; 85025; 85379; 85610; 85730; 86850; 86870; 86900; 86920; 93005; 93306; 93970; 96374; 96375; 99291; G0482; J1200; J1642; J2270; J2405; J3490; J7030; J7050; P9016

== ENCOUNTER 2017-03-08 15:40 | Inpatient (IN) | payer MEDICARE, MEDICAID ==
[~2017-03-08] VITALS: Ht 170.2 cm; Wt 58.1 kg
[~2017-03-08 15:40] MED LIST changes: -AMLO10TA80 PO; -FAMO20TA8 PO; -PANT40TA4 PO
[2017-03-08] MEDS ORDERED: ASPIRIN 81MG TABLET PO STA (16:21)
[2017-03-08] MEDS ORDERED: ACETAMINOPHEN 325MG TABLET PO ONE (16:30)
[2017-03-08 17:00] LABS: BASOPHILS % 2.2 % (0.0-2.0); EOSINOPHILS % 4.9 % (0.0-5.0); HEMATOCRIT. 23.7 % (36.0-48.0); HEMOGLOBIN. 7.8 g/dL (12.0-16.0); LYMPHOCYTES % 18.9 % (20.0-50.0); MEAN CORPUSCULAR HEMOGLOBIN 30.9 pg (28.0-32.0); MEAN CORPUSCULAR VOLUME 94.3 fL (81.0-99.0); MONOCYTES % 12.8 % (2.0-8.0); NEUTROPHILS % 61.2 % (40.0-76.0); PLATELET 200 x1000/uL (130-400); RED BLOOD CELL COUNT 2.52 mill/uL (4.2-5.4); RED CELL DISTRIBUTION WIDTH 18.8 % (11.6-14.6)
[2017-03-08] MEDS ORDERED: CLONIDINE 0.2MG TABLET PO ONE (17:00)
[2017-03-08 17:06] LABS: INR 1.1; PARTIAL THROMBOPLASTIN TIME 23.8 sec (23.4-31.0); PROTHROMBIN TIME 11.4 sec (9.4-11.6)
[2017-03-08 17:18] LABS: CARBON DIOXIDE 24 mEq/L (21-32); CHLORIDE 103 mEq/L (98-107); TROPONIN I < 0.02 ng/mL (0.00-0.04)
[2017-03-08] MEDS ORDERED: TRAMADOL 50MG TABLET PO ONE (17:30)
[2017-03-08] MEDS ORDERED: LORAZEPAM 1MG TABLET PO ONE (19:00)
[2017-03-08 20:00] VITALS: BP 96/59
[2017-03-08 20:45] VITALS: BP 156/110
[2017-03-08] MEDS ORDERED: CLONIDINE 0.1MG TABLET PO PRN (21:30)
[2017-03-08] MEDS ORDERED: ZOLPIDEM TARTRATE 5MG TABLET PO PRN (21:30)
[2017-03-08] MEDS: DIPHENHYDRAMINE 50MG/ML VIAL IV PRN (22:17)
[2017-03-08] MEDS: ONDANSETRON HCL 4MG/2ML VIAL IV PRN (22:17)
[2017-03-08] MEDS: MORPHINE SULFATE 4 MG/ML CPJ (NOT FOR IM USE) IV PRN (22:20)
[2017-03-09] VITALS (13 sets, daily range): BP systolic 100–138; BP diastolic 57–97
[2017-03-09 01:36] LABS: CREATINE KINASE 34 IU/L (26-192); CREATINE KINASE MB FRACTION 0.9 ng/mL (0.5-3.6); TROPONIN I < 0.02 ng/mL (0.00-0.04)
[2017-03-09] MEDS: DIPHENHYDRAMINE 50MG/ML VIAL IV PRN ×4 (05:12→23:20)
[2017-03-09] MEDS: ONDANSETRON HCL 4MG/2ML VIAL IV PRN ×2 (05:13→23:30)
[2017-03-09] MEDS: MORPHINE SULFATE 4 MG/ML CPJ (NOT FOR IM USE) IV PRN ×4 (05:13→23:20)
[2017-03-09 06:41] LABS: BASOPHILS % 2.8 % (0.0-2.0); EOSINOPHILS % 5.9 % (0.0-5.0); HEMATOCRIT. 26.8 % (36.0-48.0); HEMOGLOBIN. 8.9 g/dL (12.0-16.0); LYMPHOCYTES % 45.3 % (20.0-50.0); MEAN CORPUSCULAR HEMOGLOBIN 31.5 pg (28.0-32.0); MEAN CORPUSCULAR VOLUME 95.1 fL (81.0-99.0); MEAN PLATELET VOLUME 8.7 fl (7.4-10.4); MONOCYTES % 13.1 % (2.0-8.0); NEUTROPHILS % 32.9 % (40.0-76.0); PLATELET 221 x1000/uL (130-400); RED BLOOD CELL COUNT 2.81 mill/uL (4.2-5.4); RED CELL DISTRIBUTION WIDTH 18.9 % (11.6-14.6)
[2017-03-09] MEDS: ASPIRIN 81MG TABLET PO SCH (09:04)
[2017-03-09] MEDS: CARVEDILOL 6.25 MG TABLET PO SCH ×2 (09:05→21:42)
[2017-03-09] MEDS ORDERED: LIDOCAINE HCL 1% 20ML VIAL (Pyxis) INJ ONE (13:00)
[2017-03-09] MEDS ORDERED: SODIUM BICARBONATE 4% (2.4MEQ) 5ML VIAL IV ONE (13:00)
[2017-03-09] MEDS ORDERED: CEFAZOLIN 1000MG PREMIX 50 ML IV ONE (13:00)
[2017-03-09] MEDS ORDERED: CEFAZOLIN 1000MG PREMIX 50 ML IV NR (13:00)
[2017-03-09] MEDS ORDERED: IOHEXOL-300 50 ML BOTTLE IV ONE (13:46)
[2017-03-09] MEDS: PHENYTOIN SODIUM EXTENDED 100MG CAPSULE PO SCH (21:41)
[2017-03-09] MEDS: SEVELAMER CARBONATE 800 MG TABLET PO SCH (21:42)
[2017-03-10 00:14] VITALS: BP 132/96
[2017-03-10 04:00] VITALS: BP 130/95
[2017-03-10 04:44] VITALS: BP 130/92
[2017-03-10] MEDS: DIPHENHYDRAMINE 50MG/ML VIAL IV PRN ×2 (05:24→11:26)
[2017-03-10] MEDS: ONDANSETRON HCL 4MG/2ML VIAL IV PRN ×2 (05:24→11:26)
[2017-03-10] MEDS: MORPHINE SULFATE 4 MG/ML CPJ (NOT FOR IM USE) IV PRN ×2 (05:24→11:26)
[2017-03-10 07:07] LABS: BASOPHILS % 1.8 % (0.0-2.0); EOSINOPHILS % 5.9 % (0.0-5.0); HEMATOCRIT. 26.8 % (36.0-48.0); HEMOGLOBIN. 8.6 g/dL (12.0-16.0); LYMPHOCYTES % 24.3 % (20.0-50.0); MEAN CORPUSCULAR VOLUME 96.6 fL (81.0-99.0); MEAN PLATELET VOLUME 8.9 fl (7.4-10.4); MONOCYTES % 11.4 % (2.0-8.0); NEUTROPHILS % 56.6 % (40.0-76.0); PLATELET 218 x1000/uL (130-400); RED BLOOD CELL COUNT 2.78 mill/uL (4.2-5.4); RED CELL DISTRIBUTION WIDTH 19.3 % (11.6-14.6)
[2017-03-10 07:41] VITALS: BP 125/92
[2017-03-10] MEDS: SEVELAMER CARBONATE 800 MG TABLET PO SCH (08:46)
[2017-03-10] MEDS: PHENYTOIN SODIUM EXTENDED 100MG CAPSULE PO SCH (08:46)
[2017-03-10] MEDS: ASPIRIN 81MG TABLET PO SCH (08:47)
[2017-03-10] MEDS: CARVEDILOL 6.25 MG TABLET PO SCH (08:47)
[2017-03-10 12:38] VITALS: BP 116/87
[2017-04-13] MEDS ORDERED: LOSA50TA20 PO (10:54)
[2017-04-13] MEDS ORDERED: COR6 PO (10:54)
[2017-04-13] MEDS ORDERED: SEVE800T8 PO (10:54)
[2017-04-13] MEDS ORDERED: PHEN100C12 PO (10:54)
[2017-04-13] MEDS ORDERED: LEVO25TA7 PO (10:54)
== END 2017-03-10 15:10 | disposition home or self-care (01) | DRG 314 ==
LOC: ER 15:40 → 6WST 18:05 → EDBEDREQ 18:13 → ENRESERV 19:10
PROVIDERS: ADMIT Hospitalist; ATTEND Hospitalist
PROC: 02PYX3Z Removal of Infusion Device from Great Vessel, External Approach (ICD-10-PCS; principal; 2017-03-09)
PROC: 02HV33Z Insertion of Infusion Device into Superior Vena Cava, Percutaneous Approach (ICD-10-PCS; 2017-03-09)
PROC: B5181ZA Fluoroscopy of Superior Vena Cava using Low Osmolar Contrast, Guidance (ICD-10-PCS; 2017-03-09)
DX: T82.41XA Breakdown (mechanical) of vascular dialysis catheter, initial encounter (principal); N18.6 End stage renal disease; I13.2 Hypertensive heart and chronic kidney disease with heart failure and with stage 5 chronic kidney disease, or end stage renal disease; R18.8 Other ascites; E87.5 Hyperkalemia; D64.9 Anemia, unspecified; E03.9 Hypothyroidism, unspecified; E78.00 Pure hypercholesterolemia, unspecified; F17.200 Nicotine dependence, unspecified, uncomplicated; F41.9 Anxiety disorder, unspecified; G40.909 Epilepsy, unspecified, not intractable, without status epilepticus; J44.9 Chronic obstructive pulmonary disease, unspecified; I50.9 Heart failure, unspecified; Y71.2 Prosthetic and other implants, materials and accessory cardiovascular devices associated with adverse incidents; Z91.19 Patient's noncompliance with other medical treatment and regimen; Z99.2 Dependence on renal dialysis
CPT/HCPCS: 36415; 36581; 71010; 75827; 77001; 80048; 80185; 82550; 82553; 83880; 84484; 85025; 85610; 85730; 93005; 93970; 99285; C1750; C1769; C1893; J0690; J1200; J1642; J2270; J2405; J3490; Q9967

== ENCOUNTER 2017-03-15 13:59 | Inpatient (IN) | payer MEDICARE, MEDICAID ==
[~2017-03-15] VITALS: Ht 170.2 cm; Wt 57.8 kg
[2017-03-15 15:28] LABS: BASOPHILS % 1.6 % (0.0-2.0); EOSINOPHILS % 7.7 % (0.0-5.0); HEMATOCRIT. 27.8 % (36.0-48.0); HEMOGLOBIN. 9.1 g/dL (12.0-16.0); LYMPHOCYTES % 23.8 % (20.0-50.0); MEAN CORPUSCULAR HEMOGLOBIN 31.7 pg (28.0-32.0); MEAN CORPUSCULAR VOLUME 97.2 fL (81.0-99.0); MEAN PLATELET VOLUME 8.4 fl (7.4-10.4); MONOCYTES % 11.2 % (2.0-8.0); NEUTROPHILS % 55.7 % (40.0-76.0); PLATELET 277 x1000/uL (130-400); RED BLOOD CELL COUNT 2.86 mill/uL (4.2-5.4); RED CELL DISTRIBUTION WIDTH 19.8 % (11.6-14.6)
[2017-03-15 15:33] LABS: PROTHROMBIN TIME 10.7 sec (9.4-11.6)
[2017-03-15 15:37] LABS: CARBON DIOXIDE 27 mEq/L (21-32); CHLORIDE 97 mEq/L (98-107)
[2017-03-15 15:47] LABS: HCG SCREEN NEGATIVE
[2017-03-15] MEDS ORDERED: TRAMADOL 50MG TABLET PO ONE (16:45)
[2017-03-15] MEDS ORDERED: FUROSEMIDE 100MG/10ML VIAL IV STA (17:04)
[2017-03-15] MEDS ORDERED: DEXTROSE 50% WATER 50ML SYRINGE IV ONE ×3 (17:15→19:00)
[2017-03-15] MEDS ORDERED: ALBUTEROL (0.083%) 2.5MG/3ML NEB HHN ONE (17:15)
[2017-03-15] MEDS ORDERED: INSULIN REGULAR (HUMULIN R) 300UNITS/3ML IV ONE (17:15)
[2017-03-15] MEDS ORDERED: CALCIUM CHLORIDE 1GM/10ML SYR IV ONE (17:15)
[2017-03-15 23:00] VITALS: BP 158/113
[2017-03-16] VITALS: BP 158/113
[2017-03-16] MEDS ORDERED: IPRATROPIUM/ALBUTEROL 0.5-3(2.5)MG/3ML NEB INH PRN (01:00)
[2017-03-16] MEDS ORDERED: ACETAMINOPHEN 325MG TABLET PO PRN (01:00)
[2017-03-16] MEDS ORDERED: HYDROCODONE/ACETAMINOPHEN 5/325MG TABLET PO PRN (01:00)
[2017-03-16] MEDS ORDERED: DEXTROSE 50% WATER 50ML SYRINGE IV PRN (01:00)
[2017-03-16] MEDS ORDERED: MAGNESIUM/ALUMINUM HYDROXIDE/SIMETHICONE 30ML UDC PO PRN (01:00)
[2017-03-16] MEDS ORDERED: CLONIDINE 0.1MG TABLET PO PRN (01:00)
[2017-03-16] MEDS ORDERED: DOCUSATE SODIUM 100MG CAPSULE PO PRN (01:00)
[2017-03-16] MEDS: MORPHINE SULFATE 4 MG/ML CPJ (NOT FOR IM USE) IV PRN ×4 (01:19→21:10)
[2017-03-16] MEDS: ONDANSETRON HCL 4MG/2ML VIAL IV PRN ×2 (03:40→08:01)
[2017-03-16 04:00] VITALS: BP 148/111
[2017-03-16] MEDS: BLOOD SUGAR DIAGNOSTIC STRIP TEST SCH ×4 (07:40→20:58)
[2017-03-16] MEDS: INSULIN LISPRO 100 UNITS/ML SUBCUT SCH ×4 (07:46→20:57)
[2017-03-16 08:00] VITALS: BP 149/97
[2017-03-16] MEDS ORDERED: SODIUM BICARBONATE 4% (2.4MEQ) 5ML VIAL IV ONE (10:56)
[2017-03-16 12:00] VITALS: BP 149/112
[2017-03-16] MEDS ORDERED: DIPHENHYDRAMINE 50MG/ML VIAL IV NR (12:20)
[2017-03-16] MEDS ORDERED: SODIUM BICARBONATE 4.2% 5 MEQ/10 ML DISP.SYRIN IV ONE (13:36)
[2017-03-16] MEDS ORDERED: LIDOCAINE HCL 1% 20ML VIAL (Pyxis) INJ ONE (13:36)
[2017-03-16 16:00] VITALS: BP 131/91
[2017-03-16] MEDS ORDERED: TRAMADOL 50MG TABLET PO PRN (16:45)
[2017-03-16] MEDS: SEVELAMER CARBONATE 800 MG TABLET PO SCH (17:59)
[2017-03-16 20:00] VITALS: BP 142/100
[2017-03-16] MEDS: CARVEDILOL 6.25 MG TABLET PO SCH (21:09)
[2017-03-16] MEDS: PHENYTOIN SODIUM EXTENDED 100MG CAPSULE PO SCH (21:09)
[2017-03-16] MEDS ORDERED: SODIUM POLYSTYRENE SULFONATE 15 G/60 ML BOT PO NR (22:45)
[2017-03-16] MEDS ORDERED: INSULIN REGULAR (HUMULIN R) 300UNITS/3ML IV ONE (22:45)
[2017-03-16] MEDS ORDERED: SODIUM BICARBONATE 8.4% 1 MEQ/ML 50ML SYR IV NR (22:45)
[2017-03-16] MEDS ORDERED: DEXTROSE 50% WATER 50ML SYRINGE IV NR (22:45)
[2017-03-16] MEDS ORDERED: INSULIN REGULAR (HUMULIN R) UD 100 UNITS/ML SYR IV NR (23:00)
[2017-03-17] VITALS: BP 125/83
[2017-03-17 01:20] LABS: HEMATOCRIT. 24.4 % (36.0-48.0); HEMOGLOBIN. 8.1 g/dL (12.0-16.0); MEAN CORPUSCULAR HEMOGLOBIN 32.1 pg (28.0-32.0); MEAN CORPUSCULAR VOLUME 96.2 fL (81.0-99.0); MEAN PLATELET VOLUME 8.1 fl (7.4-10.4); PLATELET 232 x1000/uL (130-400); RED BLOOD CELL COUNT 2.53 mill/uL (4.2-5.4); RED CELL DISTRIBUTION WIDTH 20.2 % (11.6-14.6)
[2017-03-17 01:39] LABS: ATYPICAL LYMPHOCYTES 1; NUCLEATED RED BLOOD CELLS 1 /100 WBC
[2017-03-17 01:40] LABS: PLATELET ESTIMATE NORMAL
[2017-03-17 03:24] LABS: CARBON DIOXIDE 32 mEq/L (21-32); CHLORIDE 96 mEq/L (98-107)
[2017-03-17 04:00] VITALS: BP 138/88
[2017-03-17] MEDS: MORPHINE SULFATE 4 MG/ML CPJ (NOT FOR IM USE) IV PRN ×3 (04:15→17:10)
[2017-03-17] MEDS: ONDANSETRON HCL 4MG/2ML VIAL IV PRN (04:20)
[2017-03-17] MEDS: PHENYTOIN SODIUM EXTENDED 100MG CAPSULE PO SCH ×3 (06:05→20:56)
[2017-03-17] MEDS ORDERED: DIPHENHYDRAMINE 50MG/ML VIAL IV SCH (07:30)
[2017-03-17 08:00] VITALS: BP 156/112
[2017-03-17] MEDS: LEVOTHYROXINE SODIUM 50MCG TABLET PO SCH (08:02)
[2017-03-17] MEDS: BLOOD SUGAR DIAGNOSTIC STRIP TEST SCH ×4 (08:02→20:56)
[2017-03-17] MEDS: INSULIN LISPRO 100 UNITS/ML SUBCUT SCH ×4 (08:02→20:55)
[2017-03-17] MEDS: CARVEDILOL 6.25 MG TABLET PO SCH ×2 (09:00→20:55)
[2017-03-17] MEDS: LOSARTAN POTASSIUM 50 MG TABLET PO SCH (09:00)
[2017-03-17] MEDS: SEVELAMER CARBONATE 800 MG TABLET PO SCH ×3 (09:06→18:36)
[2017-03-17] MEDS ORDERED: HEPARIN SODIUM 1,000 UNIT/1ML VIAL IV SCH (11:45)
[2017-03-17 12:00] VITALS: BP 135/94
[2017-03-17 16:00] VITALS: BP 122/80
[2017-03-17 20:00] VITALS: BP 138/78
[2017-03-18] VITALS: BP 123/88
[2017-03-18] MEDS: MORPHINE SULFATE 4 MG/ML CPJ (NOT FOR IM USE) IV PRN ×2 (03:30→09:18)
[2017-03-18 04:00] VITALS: BP 134/97
[2017-03-18] MEDS: DIPHENHYDRAMINE 50MG/ML VIAL IV PRN ×2 (05:23→11:40)
[2017-03-18] MEDS: PHENYTOIN SODIUM EXTENDED 100MG CAPSULE PO SCH (06:00)
[2017-03-18] MEDS: BLOOD SUGAR DIAGNOSTIC STRIP TEST SCH (07:11)
[2017-03-18] MEDS: INSULIN LISPRO 100 UNITS/ML SUBCUT SCH (07:11)
[2017-03-18 08:00] VITALS: BP 137/92
[2017-03-18] MEDS: SEVELAMER CARBONATE 800 MG TABLET PO SCH (08:10)
[2017-03-18] MEDS: LEVOTHYROXINE SODIUM 50MCG TABLET PO SCH (08:18)
[2017-03-18] MEDS: LOSARTAN POTASSIUM 50 MG TABLET PO SCH (09:12)
[2017-03-18] MEDS: CARVEDILOL 6.25 MG TABLET PO SCH (09:13)
[2017-03-18 12:00] VITALS: BP 152/97
[2017-03-18 12:08] VITALS: BP 152/97
[2017-03-18 12:14] LABS: BASOPHILS % 1.1 % (0.0-2.0); EOSINOPHILS % 8.5 % (0.0-5.0); HEMATOCRIT. 29.9 % (36.0-48.0); HEMOGLOBIN. 9.7 g/dL (12.0-16.0); LYMPHOCYTES % 28.7 % (20.0-50.0); MEAN CORPUSCULAR HEMOGLOBIN 31.5 pg (28.0-32.0); MONOCYTES % 14.7 % (2.0-8.0); PLATELET 267 x1000/uL (130-400); RED BLOOD CELL COUNT 3.08 mill/uL (4.2-5.4); RED CELL DISTRIBUTION WIDTH 20.9 % (11.6-14.6)
[2017-04-13] MEDS ORDERED: SEVE800T8 PO (10:54)
[2017-04-13] MEDS ORDERED: COR6 PO (10:54)
[2017-04-13] MEDS ORDERED: PHEN100C12 PO (10:54)
[2017-04-13] MEDS ORDERED: LEVO25TA7 PO (10:54)
[2017-04-13] MEDS ORDERED: LOSA50TA20 PO (10:54)
== END 2017-03-18 13:00 | disposition home or self-care (01) | DRG 441 ==
LOC: ER 14:26 → 6EST 19:18 → EDBEDREQTM 19:28 → EDBEDREQ 19:28 → ENRESERV 20:45 → 7WST 03-16 00:18
PROVIDERS: ADMIT Hospitalist; ATTEND Hospitalist
PROC: 0W9G3ZX Drainage of Peritoneal Cavity, Percutaneous Approach, Diagnostic (ICD-10-PCS; principal; 2017-03-16)
DX: K72.90 Hepatic failure, unspecified without coma (principal); N18.6 End stage renal disease; I13.2 Hypertensive heart and chronic kidney disease with heart failure and with stage 5 chronic kidney disease, or end stage renal disease; R18.8 Other ascites; E87.5 Hyperkalemia; D64.9 Anemia, unspecified; E03.9 Hypothyroidism, unspecified; E78.00 Pure hypercholesterolemia, unspecified; G40.909 Epilepsy, unspecified, not intractable, without status epilepticus; I50.9 Heart failure, unspecified; E05.90 Thyrotoxicosis, unspecified without thyrotoxic crisis or storm; F10.20 Alcohol dependence, uncomplicated; F41.9 Anxiety disorder, unspecified; Z91.018 Allergy to other foods; Z91.19 Patient's noncompliance with other medical treatment and regimen; Z99.2 Dependence on renal dialysis; Z79.899 Other long term (current) drug therapy
CPT/HCPCS: 36415; 49083; 71010; 80048; 80053; 82962; 83690; 83880; 84132; 84703; 85025; 85610; 87070; 87205; 88108; 88312; 89050; 93005; 93970; 94640; 96374; 96375; 99291; J1200; J1644; J1815; J1940; J2270; J2405; J3490; J7030; J7611

== ENCOUNTER 2017-03-26 16:35 | Inpatient (IN) | payer MEDICARE, MEDICAID ==
[~2017-03-26] VITALS: Ht 177.8 cm; Wt 91.0 kg
[2017-03-26 18:02] LABS: BASOPHILS % 1.4 % (0.0-2.0); EOSINOPHILS % 9.8 % (0.0-5.0); HEMATOCRIT. 28.2 % (36.0-48.0); HEMOGLOBIN. 9.3 g/dL (12.0-16.0); LYMPHOCYTES % 27.9 % (20.0-50.0); MEAN CORPUSCULAR HEMOGLOBIN 32.3 pg (28.0-32.0); MEAN CORPUSCULAR VOLUME 98.1 fL (81.0-99.0); MEAN PLATELET VOLUME 7.5 fl (7.4-10.4); MONOCYTES % 12.3 % (2.0-8.0); NEUTROPHILS % 48.6 % (40.0-76.0); PLATELET 275 x1000/uL (130-400); RED BLOOD CELL COUNT 2.87 mill/uL (4.2-5.4); RED CELL DISTRIBUTION WIDTH 18.7 % (11.6-14.6)
[2017-03-26 18:05] LABS: CHLORIDE 104 mEq/L (98-107); INR 1.1; PROTHROMBIN TIME 11.9 sec (9.4-11.6)
[2017-03-26 18:07] LABS: CARBON DIOXIDE 25 mEq/L (21-32)
[2017-03-26] MEDS ORDERED: HYDROCODONE/ACETAMINOPHEN 5/325MG TABLET PO ONE (21:00)
[2017-03-27] MEDS ORDERED: ACETAMINOPHEN 325MG TABLET PO PRN (00:15)
[2017-03-27] MEDS ORDERED: LORAZEPAM 2MG/ML CPJ IV PRN (00:15)
[2017-03-27] MEDS: HYDROMORPHONE HCL/PF 2MG/ML CPJ IV PRN ×4 (01:01→21:41)
[2017-03-27] MEDS: ONDANSETRON HCL 4MG/2ML VIAL IV PRN ×3 (01:41→23:48)
[2017-03-27 08:00] VITALS: BP 178/132
[2017-03-27] MEDS: ASPIRIN 81MG EC TABLET PO SCH (09:00)
[2017-03-27] MEDS ORDERED: HEPARIN SODIUM 1,000 UNIT/1ML VIAL IV NR (11:30)
[2017-03-27 12:00] VITALS: BP 182/107
[2017-03-27] MEDS: DIPHENHYDRAMINE 50MG/ML VIAL IV PRN ×2 (13:06→19:42)
[2017-03-27] MEDS: CLONIDINE 0.1MG TABLET PO PRN ×2 (15:45→23:48)
[2017-03-27 16:00] VITALS: BP 196/127
[2017-03-27 17:00] VITALS: BP 180/124
[2017-03-27] MEDS: HYDRALAZINE HCL 100MG TABLET PO SCH (18:39)
[2017-03-27 19:47] VITALS: BP 180/130
[2017-03-27 23:40] VITALS: BP 166/113
[2017-03-28] MEDS: DIPHENHYDRAMINE 50MG/ML VIAL IV PRN ×4 (02:56→23:41)
[2017-03-28] MEDS: HYDROMORPHONE HCL/PF 2MG/ML CPJ IV PRN ×4 (02:57→17:57)
[2017-03-28 04:00] VITALS: BP 128/89
[2017-03-28] MEDS: ONDANSETRON HCL 4MG/2ML VIAL IV PRN (06:24)
[2017-03-28 08:00] VITALS: BP 135/90
[2017-03-28] MEDS: ASPIRIN 81MG EC TABLET PO SCH (08:44)
[2017-03-28] MEDS: HYDRALAZINE HCL 100MG TABLET PO SCH ×3 (08:44→16:14)
[2017-03-28 10:20] LABS: HEMATOCRIT. 26.9 % (36.0-48.0); HEMOGLOBIN. 8.6 g/dL (12.0-16.0); MEAN CORPUSCULAR HEMOGLOBIN 31.7 pg (28.0-32.0); MEAN CORPUSCULAR VOLUME 98.7 fL (81.0-99.0); PLATELET 230 x1000/uL (130-400); RED BLOOD CELL COUNT 2.73 mill/uL (4.2-5.4); RED CELL DISTRIBUTION WIDTH 18.6 % (11.6-14.6)
[2017-03-28 10:37] LABS: CARBON DIOXIDE 23 mEq/L (21-32); CHLORIDE 103 mEq/L (98-107)
[2017-03-28 10:57] LABS: PLATELET ESTIMATE NORMAL
[2017-03-28 12:00] VITALS: BP 160/92
[2017-03-28 16:00] VITALS: BP 165/92
[2017-03-28 20:00] VITALS: BP 142/95
[2017-03-29] VITALS: BP 145/90
[2017-03-29 04:00] VITALS: BP 136/91
[2017-03-29 08:00] VITALS: BP 140/99
[2017-03-29] MEDS: ASPIRIN 81MG EC TABLET PO SCH (08:54)
[2017-03-29 08:57] LABS: EOSINOPHILS % 10.3 % (0.0-5.0); HEMATOCRIT. 26.9 % (36.0-48.0); HEMOGLOBIN. 8.8 g/dL (12.0-16.0); LYMPHOCYTES % 21.9 % (20.0-50.0); MEAN CORPUSCULAR HEMOGLOBIN 32.3 pg (28.0-32.0); MEAN CORPUSCULAR VOLUME 98.2 fL (81.0-99.0); MEAN PLATELET VOLUME 7.6 fl (7.4-10.4); MONOCYTES % 14.3 % (2.0-8.0); NEUTROPHILS % 52.5 % (40.0-76.0); PLATELET 208 x1000/uL (130-400); RED BLOOD CELL COUNT 2.73 mill/uL (4.2-5.4); RED CELL DISTRIBUTION WIDTH 18.2 % (11.6-14.6)
[2017-03-29] MEDS: DIPHENHYDRAMINE 50MG/ML VIAL IV PRN (09:00)
[2017-03-29] MEDS: HYDRALAZINE HCL 100MG TABLET PO SCH ×2 (09:00→12:46)
[2017-03-29] MEDS ORDERED: LIDOCAINE HCL 1% 20ML VIAL (Pyxis) INJ ONE (10:26)
[2017-03-29] MEDS ORDERED: SODIUM BICARBONATE 4% (2.4MEQ) 5ML VIAL IV ONE (10:26)
[2017-03-29 12:00] VITALS: BP 133/80
[2017-03-29 13:49] VITALS: BP 133/80
[2017-04-13] MEDS ORDERED: PHEN100C12 PO (10:54)
[2017-04-13] MEDS ORDERED: LEVO25TA7 PO (10:54)
[2017-04-13] MEDS ORDERED: SEVE800T8 PO (10:54)
[2017-04-13] MEDS ORDERED: COR6 PO (10:54)
[2017-04-13] MEDS ORDERED: LOSA50TA20 PO (10:54)
== END 2017-03-29 14:48 | disposition home or self-care (01) | DRG 291 ==
LOC: ER 18:09 → 8WST 20:17 → ENRESERV 21:18
PROVIDERS: ADMIT Hospitalist; ATTEND Hospitalist
PROC: 5A1D70Z Performance of Urinary Filtration, Intermittent, Less than 6 Hours Per Day (ICD-10-PCS; principal; 2017-03-27)
PROC: 5A1D70Z Performance of Urinary Filtration, Intermittent, Less than 6 Hours Per Day (ICD-10-PCS; 2017-03-28)
PROC: 0W9G3ZZ Drainage of Peritoneal Cavity, Percutaneous Approach (ICD-10-PCS; 2017-03-29)
DX: I13.2 Hypertensive heart and chronic kidney disease with heart failure and with stage 5 chronic kidney disease, or end stage renal disease (principal); N18.6 End stage renal disease; E11.22 Type 2 diabetes mellitus with diabetic chronic kidney disease; R18.8 Other ascites; E44.0 Moderate protein-calorie malnutrition; E87.5 Hyperkalemia; K72.90 Hepatic failure, unspecified without coma; I50.33 Acute on chronic diastolic (congestive) heart failure; D63.8 Anemia in other chronic diseases classified elsewhere; Z99.2 Dependence on renal dialysis; E05.90 Thyrotoxicosis, unspecified without thyrotoxic crisis or storm; E03.9 Hypothyroidism, unspecified; F41.9 Anxiety disorder, unspecified; E78.00 Pure hypercholesterolemia, unspecified; G40.909 Epilepsy, unspecified, not intractable, without status epilepticus; Z76.5 Malingerer [conscious simulation]; Z79.4 Long term (current) use of insulin; Z91.19 Patient's noncompliance with other medical treatment and regimen; Z91.018 Allergy to other foods; Z91.010 Allergy to peanuts; Z79.899 Other long term (current) drug therapy; Z91.15 Patient's noncompliance with renal dialysis; Z68.28 Body mass index [BMI] 28.0-28.9, adult
CPT/HCPCS: 36415; 49083; 71010; 74176; 80048; 80053; 83690; 85025; 85610; 93005; 99285; C1893; J1170; J1200; J1644; J2405; J3490; J7030

== ENCOUNTER 2017-04-06 03:38 | Inpatient (IN) | payer MEDICARE, MEDICAID ==
[~2017-04-06] VITALS: Ht 170.2 cm; Wt 56.2 kg
[2017-04-06] MEDS ORDERED: MORPHINE SULFATE 4 MG/ML CPJ (NOT FOR IM USE) IV STA (06:16)
[2017-04-06] MEDS ORDERED: ONDANSETRON HCL 4MG/2ML VIAL IV STA (06:16)
[2017-04-06 06:54] LABS: BASOPHILS % 1.3 % (0.0-2.0); EOSINOPHILS % 5.9 % (0.0-5.0); HEMATOCRIT. 26.8 % (36.0-48.0); LYMPHOCYTES % 28.5 % (20.0-50.0); MEAN CORPUSCULAR HEMOGLOBIN 32.6 pg (28.0-32.0); MEAN CORPUSCULAR VOLUME 96.9 fL (81.0-99.0); MEAN PLATELET VOLUME 7.7 fl (7.4-10.4); MONOCYTES % 9.9 % (2.0-8.0); NEUTROPHILS % 54.4 % (40.0-76.0); PLATELET 220 x1000/uL (130-400); RED BLOOD CELL COUNT 2.76 mill/uL (4.2-5.4); RED CELL DISTRIBUTION WIDTH 16.8 % (11.6-14.6)
[2017-04-06 06:57] LABS: INR 1.2; PROTHROMBIN TIME 12.1 sec (9.4-11.6)
[2017-04-06 06:58] LABS: HCG SCREEN NEGATIVE
[2017-04-06 07:04] LABS: CHLORIDE 107 mEq/L (98-107)
[2017-04-06 07:11] LABS: CARBON DIOXIDE 21 mEq/L (21-32)
[2017-04-06] MEDS ORDERED: DIPHENHYDRAMINE 50MG/ML VIAL IV ONE (10:00)
[2017-04-06] MEDS ORDERED: LIDOCAINE HCL 1% 20ML VIAL (Pyxis) INJ ONE (10:14)
[2017-04-06] MEDS ORDERED: SODIUM BICARBONATE 4% (2.4MEQ) 5ML VIAL IV ONE (10:15)
[2017-04-06] MEDS ORDERED: IOHEXOL-300 100 ML BOTTLE ONE (11:12)
[2017-04-06 12:30] VITALS: BP 178/132
[2017-04-06] MEDS ORDERED: ACETAMINOPHEN 325MG TABLET PO PRN (13:15)
[2017-04-06] MEDS ORDERED: GUAIFENESIN 200MG/10ML SUGAR FREE UDC PO PRN (13:15)
[2017-04-06] MEDS ORDERED: ONDANSETRON HCL 4MG/2ML VIAL IV PRN (13:15)
[2017-04-06] MEDS ORDERED: DOCUSATE SODIUM 100MG CAPSULE PO PRN (13:15)
[2017-04-06] MEDS ORDERED: IPRATROPIUM/ALBUTEROL 0.5-3(2.5)MG/3ML NEB INH PRN (13:15)
[2017-04-06 13:30] VITALS: BP 179/101
[2017-04-06] MEDS: AMLODIPINE 10MG TABLET PO SCH (13:30)
[2017-04-06] MEDS: MORPHINE SULFATE 4 MG/ML CPJ (NOT FOR IM USE) IV PRN ×2 (14:18→19:58)
[2017-04-06 16:00] VITALS: BP 186/126
[2017-04-06] MEDS ORDERED: DIPHENHYDRAMINE 50MG CAPSULE PO PRN (16:15)
[2017-04-06] MEDS: DIPHENHYDRAMINE 50MG/ML VIAL IV PRN ×2 (16:54→23:07)
[2017-04-06] MEDS: CLONIDINE 0.1MG TABLET PO PRN ×2 (17:52→23:16)
[2017-04-06 19:55] VITALS: BP 150/101
[2017-04-07] VITALS: BP 166/122
[2017-04-07] MEDS: MORPHINE SULFATE 4 MG/ML CPJ (NOT FOR IM USE) IV PRN ×2 (01:20→08:35)
[2017-04-07 04:00] VITALS: BP 124/86
[2017-04-07 07:29] LABS: EOSINOPHILS % 6.2 % (0.0-5.0); HEMATOCRIT. 24.2 % (36.0-48.0); HEMOGLOBIN. 8.1 g/dL (12.0-16.0); LYMPHOCYTES % 25.9 % (20.0-50.0); MEAN CORPUSCULAR VOLUME 95.9 fL (81.0-99.0); MEAN PLATELET VOLUME 8.7 fl (7.4-10.4); MONOCYTES % 14.7 % (2.0-8.0); NEUTROPHILS % 52.2 % (40.0-76.0); PLATELET 183 x1000/uL (130-400); RED BLOOD CELL COUNT 2.53 mill/uL (4.2-5.4); RED CELL DISTRIBUTION WIDTH 16.3 % (11.6-14.6)
[2017-04-07 08:00] VITALS: BP 146/108
[2017-04-07] MEDS: DIPHENHYDRAMINE 50MG/ML VIAL IV PRN (08:34)
[2017-04-07] MEDS: ASPIRIN 81MG EC TABLET PO SCH ×2 (08:35→08:49)
[2017-04-07] MEDS: AMLODIPINE 10MG TABLET PO SCH (08:35)
[2017-04-07 12:00] VITALS: BP 144/89
[2017-04-07 12:06] VITALS: BP 144/89
[2017-04-13] MEDS ORDERED: LEVO25TA7 PO (10:54)
[2017-04-13] MEDS ORDERED: SEVE800T8 PO (10:54)
[2017-04-13] MEDS ORDERED: COR6 PO (10:54)
[2017-04-13] MEDS ORDERED: LOSA50TA20 PO (10:54)
[2017-04-13] MEDS ORDERED: PHEN100C12 PO (10:54)
== END 2017-04-07 13:00 | disposition home or self-care (01) | DRG 291 ==
LOC: ER 03:57 → ENRESERV 09:23 → 7WST 10:33 → EDBEDREQ 10:35
PROVIDERS: ADMIT Hospitalist; ATTEND Hospitalist
PROC: 5A1D70Z Performance of Urinary Filtration, Intermittent, Less than 6 Hours Per Day (ICD-10-PCS; principal; 2017-04-06)
PROC: 02HV33Z Insertion of Infusion Device into Superior Vena Cava, Percutaneous Approach (ICD-10-PCS; 2017-04-06)
PROC: B5181ZA Fluoroscopy of Superior Vena Cava using Low Osmolar Contrast, Guidance (ICD-10-PCS; 2017-04-06)
PROC: B548ZZA Ultrasonography of Superior Vena Cava, Guidance (ICD-10-PCS; 2017-04-06)
DX: I13.2 Hypertensive heart and chronic kidney disease with heart failure and with stage 5 chronic kidney disease, or end stage renal disease (principal); N18.6 End stage renal disease; E87.5 Hyperkalemia; R18.8 Other ascites; E03.9 Hypothyroidism, unspecified; G40.909 Epilepsy, unspecified, not intractable, without status epilepticus; F17.200 Nicotine dependence, unspecified, uncomplicated; I16.0 Hypertensive urgency; R10.9 Unspecified abdominal pain; F10.10 Alcohol abuse, uncomplicated; D64.9 Anemia, unspecified; I25.10 Atherosclerotic heart disease of native coronary artery without angina pectoris; I50.9 Heart failure, unspecified; Z99.2 Dependence on renal dialysis; Z91.010 Allergy to peanuts; Z91.018 Allergy to other foods; Z79.899 Other long term (current) drug therapy; Z91.15 Patient's noncompliance with renal dialysis
CPT/HCPCS: 36415; 36569; 71010; 74177; 76937; 77001; 80048; 80053; 80185; 83605; 83690; 84703; 85025; 85610; 85730; 87040; 93005; 93970; 96374; 96375; 99285; C1725; C1893; J1200; J2270; J2405; J3490; J7030; J7050; Q9967

== ENCOUNTER 2017-04-11 20:01 | Inpatient (IN) | payer MEDICARE, MEDICAID ==
[~2017-04-11] VITALS: Ht 170.2 cm; Wt 59.0 kg
[2017-04-11] MEDS ORDERED: ONDANSETRON HCL 4MG/2ML VIAL IV STA (21:42)
[2017-04-11] MEDS ORDERED: MORPHINE SULFATE 4 MG/ML CPJ (NOT FOR IM USE) IV ONE (21:45)
[2017-04-11 23:18] LABS: BASOPHILS % 1.2 % (0.0-2.0); HEMATOCRIT. 32.1 % (36.0-48.0); HEMOGLOBIN. 10.9 g/dL (12.0-16.0); LYMPHOCYTES % 27.1 % (20.0-50.0); MEAN CORPUSCULAR HEMOGLOBIN 33.1 pg (28.0-32.0); MEAN PLATELET VOLUME 8.1 fl (7.4-10.4); MONOCYTES % 7.8 % (2.0-8.0); NEUTROPHILS % 56.9 % (40.0-76.0); PLATELET 234 x1000/uL (130-400); RED BLOOD CELL COUNT 3.28 mill/uL (4.2-5.4); RED CELL DISTRIBUTION WIDTH 16.5 % (11.6-14.6)
[2017-04-11 23:24] LABS: INR 1.1; PARTIAL THROMBOPLASTIN TIME 26.6 sec (23.4-31.0); PROTHROMBIN TIME 11.1 sec (9.4-11.6)
[2017-04-11 23:34] LABS: CARBON DIOXIDE 24 mEq/L (21-32); CHLORIDE 96 mEq/L (98-107); TROPONIN I 0.02 ng/mL (0.00-0.04)
[2017-04-12] MEDS ORDERED: LORAZEPAM 2MG/ML CPJ IM ONE (01:30)
[2017-04-12] MEDS ORDERED: ACETAMINOPHEN 650MG/20.3ML UDC GT PRN (07:00)
[2017-04-12] MEDS ORDERED: ACETAMINOPHEN 325MG TABLET PO PRN (07:00)
[2017-04-12] MEDS ORDERED: ACETAMINOPHEN 650MG SUPP PR PRN (07:00)
[2017-04-12] MEDS ORDERED: ONDANSETRON HCL 4MG/2ML VIAL IV PRN (07:00)
[2017-04-12] MEDS ORDERED: DOCUSATE SODIUM 100MG CAPSULE PO PRN (07:00)
[2017-04-12] MEDS ORDERED: IPRATROPIUM/ALBUTEROL 0.5-3(2.5)MG/3ML NEB INH PRN (07:00)
[2017-04-12] MEDS ORDERED: GUAIFENESIN 200MG/10ML SUGAR FREE UDC PO PRN (07:00)
[2017-04-12] MEDS ORDERED: MAGNESIUM/ALUMINUM HYDROXIDE/SIMETHICONE 30ML UDC PO PRN (07:00)
[2017-04-12] MEDS ORDERED: ENOXAPARIN 40MG/0.4ML SYR SUBCUT SCH (07:00)
[2017-04-12] MEDS: CLONIDINE 0.1MG TABLET PO PRN ×2 (07:39→08:50)
[2017-04-12] MEDS: HYDROCODONE/ACETAMINOPHEN 5/325MG TABLET PO PRN ×2 (07:40→08:51)
[2017-04-12 07:51] LABS: BASOPHILS % 1.3 % (0.0-2.0); HEMATOCRIT. 31.8 % (36.0-48.0); HEMOGLOBIN. 10.6 g/dL (12.0-16.0); LYMPHOCYTES % 27.1 % (20.0-50.0); MEAN CORPUSCULAR HEMOGLOBIN 32.6 pg (28.0-32.0); MEAN CORPUSCULAR VOLUME 98.1 fL (81.0-99.0); MEAN PLATELET VOLUME 8.1 fl (7.4-10.4); MONOCYTES % 9.2 % (2.0-8.0); NEUTROPHILS % 54.4 % (40.0-76.0); PLATELET 231 x1000/uL (130-400); RED BLOOD CELL COUNT 3.24 mill/uL (4.2-5.4); RED CELL DISTRIBUTION WIDTH 16.7 % (11.6-14.6)
[2017-04-12 07:53] LABS: CARBON DIOXIDE 25 mEq/L (21-32); CHLORIDE 97 mEq/L (98-107)
[2017-04-12] MEDS: DIPHENHYDRAMINE 50MG/ML VIAL IV PRN ×5 (08:20→22:16)
[2017-04-12 08:45] VITALS: BP 117/118
[2017-04-12] MEDS ORDERED: ENOXAPARIN 30MG/0.3ML SYR SUBCUT SCH (09:00)
[2017-04-12 09:45] VITALS: BP 171/118
[2017-04-12] MEDS: LOSARTAN POTASSIUM 50 MG TABLET PO SCH (10:30)
[2017-04-12] MEDS: PHENYTOIN SODIUM EXTENDED 100MG CAPSULE PO SCH ×3 (10:30→18:20)
[2017-04-12] MEDS: CARVEDILOL 12.5MG TABLET PO SCH ×2 (10:30→21:42)
[2017-04-12] MEDS: LEVOTHYROXINE SODIUM 25MCG TABLET PO SCH (10:30)
[2017-04-12 12:00] VITALS: BP 126/93
[2017-04-12] MEDS ORDERED: HEPARIN SODIUM 1,000 UNIT/1ML VIAL IV ONE (13:00)
[2017-04-12] MEDS ORDERED: HYDROCODONE/ACETAMINOPHEN 5/325MG TABLET PO PRN (13:45)
[2017-04-12] MEDS: SODIUM CHLORIDE 0.9% INJ 3ML FLUSH IVF SCH ×2 (14:00→21:42)
[2017-04-12] MEDS: CLONIDINE 0.2MG TABLET PO SCH ×2 (14:00→21:41)
[2017-04-12] MEDS: LORAZEPAM 0.5MG TABLET PO PRN ×2 (14:23→18:57)
[2017-04-12] MEDS: SEVELAMER CARBONATE 800 MG TABLET PO SCH (18:20)
[2017-04-12 20:00] VITALS: BP 161/121
[2017-04-12] MEDS: ENOXAPARIN 30MG/0.3ML SYR SUBCUT SCH ×2 (21:00→21:43)
[2017-04-12] MEDS ORDERED: ZOLPIDEM TARTRATE 5MG TABLET PO PRN (22:30)
[2017-04-13] VITALS: BP 137/63
[2017-04-13 04:00] VITALS: BP 130/96
[2017-04-13] MEDS: CLONIDINE 0.2MG TABLET PO SCH (04:53)
[2017-04-13] MEDS: LEVOTHYROXINE SODIUM 25MCG TABLET PO SCH (04:53)
[2017-04-13] MEDS: DIPHENHYDRAMINE 50MG/ML VIAL IV PRN ×2 (04:53→09:57)
[2017-04-13] MEDS: SODIUM CHLORIDE 0.9% INJ 3ML FLUSH IVF SCH (04:54)
[2017-04-13 07:08] LABS: BASOPHILS % 1.3 % (0.0-2.0); EOSINOPHILS % 7.2 % (0.0-5.0); HEMATOCRIT. 24.9 % (36.0-48.0); HEMOGLOBIN. 8.2 g/dL (12.0-16.0); LYMPHOCYTES % 24.7 % (20.0-50.0); MEAN CORPUSCULAR HEMOGLOBIN 32.5 pg (28.0-32.0); MEAN CORPUSCULAR VOLUME 98.7 fL (81.0-99.0); MEAN PLATELET VOLUME 8.4 fl (7.4-10.4); MONOCYTES % 11.7 % (2.0-8.0); NEUTROPHILS % 55.1 % (40.0-76.0); PLATELET 228 x1000/uL (130-400); RED BLOOD CELL COUNT 2.53 mill/uL (4.2-5.4); RED CELL DISTRIBUTION WIDTH 16.8 % (11.6-14.6)
[2017-04-13 07:45] LABS: CARBON DIOXIDE 24 mEq/L (21-32); CHLORIDE 101 mEq/L (98-107)
[2017-04-13 07:51] LABS: HDL CHOLESTEROL 87 mg/dL (40-59); LDL CHOLESTEROL 105 mg/dL (5-100)
[2017-04-13] MEDS: LOSARTAN POTASSIUM 50 MG TABLET PO SCH (08:14)
[2017-04-13] MEDS: PHENYTOIN SODIUM EXTENDED 100MG CAPSULE PO SCH (08:16)
[2017-04-13] MEDS: SEVELAMER CARBONATE 800 MG TABLET PO SCH (08:16)
[2017-04-13] MEDS: CARVEDILOL 12.5MG TABLET PO SCH (08:19)
[2017-04-13 09:06] VITALS: BP 114/82
[2017-04-13] MEDS ORDERED: PHEN100C12 PO (10:54)
[2017-04-13] MEDS ORDERED: LEVO25TA7 PO (10:54)
[2017-04-13] MEDS ORDERED: SEVE800T8 PO (10:54)
[2017-04-13] MEDS ORDERED: COR6 PO (10:54)
[2017-04-13] MEDS ORDERED: LOSA50TA20 PO (10:54)
[2017-04-13] MEDS: LORAZEPAM 0.5MG TABLET PO PRN (11:07)
[2017-04-13 12:00] VITALS: BP 121/85
[2017-04-13] MEDS ORDERED: LIDOCAINE HCL 1% 20ML VIAL (Pyxis) INJ ONE (13:36)
[2017-04-13] MEDS ORDERED: SODIUM BICARBONATE 4% (2.4MEQ) 5ML VIAL IV ONE (13:37)
[2017-04-13 15:36] VITALS: BP 132/93
[2017-04-13 16:17] VITALS: BP 113/76
== END 2017-04-13 18:40 | disposition home or self-care (01) | DRG 640 ==
LOC: ER 20:26 → 6WST 04-12 00:49 → ENRESERV 04-12 07:24
PROVIDERS: ADMIT Family Medicine; ATTEND Family Medicine
PROC: 5A1D70Z Performance of Urinary Filtration, Intermittent, Less than 6 Hours Per Day (ICD-10-PCS; 2017-04-12)
PROC: 0W9G3ZZ Drainage of Peritoneal Cavity, Percutaneous Approach (ICD-10-PCS; principal; 2017-04-13)
DX: E87.5 Hyperkalemia (principal); N18.6 End stage renal disease; I13.2 Hypertensive heart and chronic kidney disease with heart failure and with stage 5 chronic kidney disease, or end stage renal disease; R18.8 Other ascites; E87.1 Hypo-osmolality and hyponatremia; F41.9 Anxiety disorder, unspecified; F10.10 Alcohol abuse, uncomplicated; E03.9 Hypothyroidism, unspecified; G40.909 Epilepsy, unspecified, not intractable, without status epilepticus; Y90.9 Presence of alcohol in blood, level not specified; D64.9 Anemia, unspecified; I50.9 Heart failure, unspecified; Z91.19 Patient's noncompliance with other medical treatment and regimen; Z99.2 Dependence on renal dialysis; Z91.15 Patient's noncompliance with renal dialysis; Z91.018 Allergy to other foods; Z91.010 Allergy to peanuts; Z79.899 Other long term (current) drug therapy
CPT/HCPCS: 36415; 49083; 71010; 80053; 80061; 83605; 83690; 83880; 84484; 85025; 85610; 85730; 87040; 93005; 96365; 96366; 96372; 96375; 96376; 99285; C1893; J1200; J1644; J1650; J2060; J2270; J2405; J3490

== ENCOUNTER 2017-05-23 22:43 | Inpatient (IN) | payer MEDICARE, MEDICAID ==
[~2017-05-23] VITALS: Ht 167.6 cm; Wt 61.2 kg
[~2017-05-23 22:43] MED LIST changes: +LORA1TAB PO; +ZOLP10TA2 PO
[2017-05-24] MEDS ORDERED: MORPHINE SULFATE 4 MG/ML CPJ (NOT FOR IM USE) IV STA (00:24)
[2017-05-24] MEDS ORDERED: DIPHENHYDRAMINE 50MG/ML VIAL IV ONE (00:30)
[2017-05-24] MEDS ORDERED: LABETALOL 5MG/ML SYR 20 MG/4 ML SYRINGE IV ONE (00:30)
[2017-05-24] MEDS ORDERED: ONDANSETRON HCL 4MG/2ML VIAL IV ONE (00:30)
[2017-05-24 01:02] LABS: HEMATOCRIT. 26.5 % (36.0-48.0); HEMOGLOBIN. 8.8 g/dL (12.0-16.0); MEAN CORPUSCULAR HEMOGLOBIN 32.8 pg (28.0-32.0); MEAN CORPUSCULAR VOLUME 99.1 fL (81.0-99.0); MEAN PLATELET VOLUME 7.7 fl (7.4-10.4); PLATELET 220 x1000/uL (130-400); RED BLOOD CELL COUNT 2.68 mill/uL (4.2-5.4); RED CELL DISTRIBUTION WIDTH 15.8 % (11.6-14.6)
[2017-05-24 01:14] LABS: CARBON DIOXIDE 24 mEq/L (21-32); CHLORIDE 99 mEq/L (98-107); TROPONIN I 0.14 ng/mL (0.00-0.04)
[2017-05-24 01:42] LABS: PLATELET ESTIMATE NORMAL
[2017-05-24] MEDS ORDERED: MAGNESIUM/ALUMINUM HYDROXIDE/SIMETHICONE 30ML UDC PO PRN (04:30)
[2017-05-24] MEDS ORDERED: LORAZEPAM 0.5MG TABLET PO PRN (04:30)
[2017-05-24] MEDS ORDERED: LORAZEPAM 1MG TABLET PO PRN (04:30)
[2017-05-24] MEDS ORDERED: ACETAMINOPHEN 325MG TABLET PO PRN (04:30)
[2017-05-24] MEDS ORDERED: IPRATROPIUM/ALBUTEROL 0.5-3(2.5)MG/3ML NEB INH PRN (04:30)
[2017-05-24] MEDS ORDERED: ONDANSETRON HCL 4MG/2ML VIAL IV PRN (04:30)
[2017-05-24] MEDS: DIPHENHYDRAMINE 50MG/ML VIAL IV PRN ×3 (05:07→20:30)
[2017-05-24] MEDS: CLONIDINE 0.1MG TABLET PO PRN (05:07)
[2017-05-24] MEDS: TRAMADOL 50MG TABLET PO PRN ×2 (05:08→19:01)
[2017-05-24] MEDS: SEVELAMER CARBONATE 800 MG TABLET PO SCH ×3 (09:00→17:26)
[2017-05-24] MEDS ORDERED: CARVEDILOL 6.25 MG TABLET PO SCH (09:00)
[2017-05-24] MEDS: LOSARTAN POTASSIUM 50 MG TABLET PO SCH (09:00)
[2017-05-24] MEDS ORDERED: DIPHENHYDRAMINE 50MG/ML VIAL IV NR (10:15)
[2017-05-24] MEDS: LEVOTHYROXINE SODIUM 25MCG TABLET PO SCH (10:16)
[2017-05-24] MEDS: CARVEDILOL 12.5MG TABLET PO SCH ×2 (10:16→20:32)
[2017-05-24] MEDS: PHENYTOIN SODIUM EXTENDED 100MG CAPSULE PO SCH ×3 (10:17→17:26)
[2017-05-24 11:03] VITALS: BP 157/102
[2017-05-24 12:00] VITALS: BP 149/92
[2017-05-24 16:00] VITALS: BP 134/93
[2017-05-24] MEDS: SODIUM CHLORIDE 0.9% INJ 3ML FLUSH IVF SCH ×3 (16:00→20:32)
[2017-05-24] MEDS: LORAZEPAM 1MG TABLET PO PRN (17:30)
[2017-05-25] VITALS: BP 143/84
[2017-05-25] MEDS: DIPHENHYDRAMINE 50MG/ML VIAL IV PRN ×4 (00:49→21:56)
[2017-05-25] MEDS: SODIUM CHLORIDE 0.9% INJ 3ML FLUSH IVF SCH ×3 (06:46→21:59)
[2017-05-25 06:49] LABS: HEMATOCRIT. 30.3 % (36.0-48.0); HEMOGLOBIN. 9.9 g/dL (12.0-16.0); MEAN CORPUSCULAR HEMOGLOBIN 32.8 pg (28.0-32.0); MEAN CORPUSCULAR VOLUME 100.8 fL (81.0-99.0); MEAN PLATELET VOLUME 7.9 fl (7.4-10.4); PLATELET 283 x1000/uL (130-400); RED CELL DISTRIBUTION WIDTH 15.6 % (11.6-14.6)
[2017-05-25] MEDS: SEVELAMER CARBONATE 800 MG TABLET PO SCH ×3 (07:40→16:52)
[2017-05-25 08:00] VITALS: BP 142/84
[2017-05-25] MEDS: LEVOTHYROXINE SODIUM 25MCG TABLET PO SCH (08:30)
[2017-05-25] MEDS: CARVEDILOL 12.5MG TABLET PO SCH ×2 (08:30→21:58)
[2017-05-25] MEDS: PHENYTOIN SODIUM EXTENDED 100MG CAPSULE PO SCH ×3 (08:30→16:52)
[2017-05-25] MEDS: LOSARTAN POTASSIUM 50 MG TABLET PO SCH (08:30)
[2017-05-25 10:05] LABS: INR 1.2; PARTIAL THROMBOPLASTIN TIME 27.8 sec (23.4-31.0); PROTHROMBIN TIME 12.9 sec (9.4-11.6)
[2017-05-25 10:30] LABS: PLATELET ESTIMATE NORMAL
[2017-05-25] MEDS ORDERED: SODIUM BICARBONATE 4% (2.4MEQ) 5ML VIAL IV ONE (11:08)
[2017-05-25] MEDS ORDERED: LIDOCAINE HCL 1% 20ML VIAL (Pyxis) INJ ONE (11:08)
[2017-05-25 12:00] VITALS: BP 142/84
[2017-05-25 16:00] VITALS: BP 145/85
[2017-05-25 20:00] VITALS: BP 147/107
[2017-05-25] MEDS: TRAMADOL 50MG TABLET PO PRN (22:00)
[2017-05-26] VITALS: BP 135/94
[2017-05-26 04:00] VITALS: BP 128/91
[2017-05-26] MEDS: SODIUM CHLORIDE 0.9% INJ 3ML FLUSH IVF SCH ×2 (06:00→08:50)
[2017-05-26 08:00] VITALS: BP 152/100
[2017-05-26] MEDS: LOSARTAN POTASSIUM 50 MG TABLET PO SCH (08:49)
[2017-05-26] MEDS: LEVOTHYROXINE SODIUM 25MCG TABLET PO SCH (08:49)
[2017-05-26] MEDS: PHENYTOIN SODIUM EXTENDED 100MG CAPSULE PO SCH ×3 (08:49→17:53)
[2017-05-26] MEDS: CLONIDINE 0.1MG TABLET PO PRN (08:49)
[2017-05-26] MEDS: DIPHENHYDRAMINE 50MG/ML VIAL IV PRN (08:50)
[2017-05-26] MEDS: SEVELAMER CARBONATE 800 MG TABLET PO SCH ×3 (08:50→17:53)
[2017-05-26] MEDS: CARVEDILOL 12.5MG TABLET PO SCH (08:50)
[2017-05-26] MEDS: LORAZEPAM 1MG TABLET PO PRN (10:18)
[2017-05-26] MEDS ORDERED: DIPHENHYDRAMINE 50MG/ML VIAL IV NR (11:30)
[2017-05-26 12:00] VITALS: BP 127/82
[2017-05-26 18:42] VITALS: BP 148/78
[2017-05-27] MEDS ORDERED: LEVOTHYROXINE SODIUM 50MCG TABLET PO SCH (07:10)
== END 2017-05-26 19:10 | disposition home or self-care (01) | DRG 291 ==
LOC: ER 23:12 → 8WST 05-24 02:33 → EDBEDREQ 05-24 02:41 → EDBEDREQTM 05-24 02:41 → ENRESERV 05-24 07:09
PROVIDERS: ADMIT Internal Medicine; ATTEND Internal Medicine
PROC: 5A1D70Z Performance of Urinary Filtration, Intermittent, Less than 6 Hours Per Day (ICD-10-PCS; 2017-05-24)
PROC: 0W9G3ZZ Drainage of Peritoneal Cavity, Percutaneous Approach (ICD-10-PCS; principal; 2017-05-25)
PROC: 5A1D70Z Performance of Urinary Filtration, Intermittent, Less than 6 Hours Per Day (ICD-10-PCS; 2017-05-26)
DX: I13.2 Hypertensive heart and chronic kidney disease with heart failure and with stage 5 chronic kidney disease, or end stage renal disease (principal); I50.23 Acute on chronic systolic (congestive) heart failure; N18.6 End stage renal disease; R18.8 Other ascites; K21.9 Gastro-esophageal reflux disease without esophagitis; Z99.2 Dependence on renal dialysis; D64.9 Anemia, unspecified; E03.9 Hypothyroidism, unspecified; F41.1 Generalized anxiety disorder; G40.909 Epilepsy, unspecified, not intractable, without status epilepticus; K76.9 Liver disease, unspecified; Z82.49 Family history of ischemic heart disease and other diseases of the circulatory system; Z83.3 Family history of diabetes mellitus; Z79.899 Other long term (current) drug therapy; Z98.891 History of uterine scar from previous surgery; Z91.018 Allergy to other foods; Z91.010 Allergy to peanuts; I25.2 Old myocardial infarction
CPT/HCPCS: 36415; 49083; 71010; 80048; 80053; 84484; 85025; 85610; 85730; 93005; 96374; 96375; 99285; J1200; J2270; J2405; J3490; J7030

== ENCOUNTER 2017-07-01 19:44 | Inpatient (IN) | payer MEDICARE, MEDICAID ==
[~2017-07-01] VITALS: Ht 170.2 cm; Wt 56.2 kg
[2017-07-01] MEDS ORDERED: MORPHINE SULFATE 4 MG/ML CPJ (NOT FOR IM USE) IV STA (22:05)
[2017-07-01] MEDS ORDERED: KETOROLAC 30MG/ML VIAL IV STA (22:05)
[2017-07-01 23:50] LABS: BASOPHILS % 0.9 % (0.0-2.0); EOSINOPHILS % 3.2 % (0.0-5.0); HEMATOCRIT. 25.3 % (36.0-48.0); HEMOGLOBIN. 8.5 g/dL (12.0-16.0); LYMPHOCYTES % 11.5 % (20.0-50.0); MEAN CORPUSCULAR HEMOGLOBIN 32.2 pg (28.0-32.0); MEAN CORPUSCULAR VOLUME 95.8 fL (81.0-99.0); MEAN PLATELET VOLUME 7.6 fl (7.4-10.4); MONOCYTES % 11.5 % (2.0-8.0); NEUTROPHILS % 72.9 % (40.0-76.0); PLATELET 202 x1000/uL (130-400); RED BLOOD CELL COUNT 2.64 mill/uL (4.2-5.4); RED CELL DISTRIBUTION WIDTH 15.4 % (11.6-14.6)
[2017-07-01 23:59] LABS: INR 1.2; PROTHROMBIN TIME 12.3 sec (9.4-11.6)
[2017-07-02 00:03] LABS: CARBON DIOXIDE 20 mEq/L (21-32); CHLORIDE 98 mEq/L (98-107); TROPONIN I 0.04 ng/mL (0.00-0.04)
[2017-07-02] MEDS ORDERED: DIPHENHYDRAMINE 50MG/ML VIAL IV ONE (01:15)
[2017-07-02] MEDS: MORPHINE SULFATE 4 MG/ML CPJ (NOT FOR IM USE) IV PRN ×3 (06:16→20:46)
[2017-07-02 08:30] VITALS: BP 166/114
[2017-07-02 09:00] VITALS: BP 165/115
[2017-07-02] MEDS ORDERED: DIPHENHYDRAMINE 50MG/ML VIAL IV NR (09:00)
[2017-07-02] MEDS ORDERED: CLONIDINE 0.1MG TABLET PO PRN (09:45)
[2017-07-02] MEDS: LOSARTAN POTASSIUM 50 MG TABLET PO SCH (09:45)
[2017-07-02] MEDS ORDERED: MORPHINE SULFATE 4 MG/ML CPJ (NOT FOR IM USE) IV PRN (09:45)
[2017-07-02] MEDS: CARVEDILOL 12.5MG TABLET PO SCH ×2 (09:45→20:47)
[2017-07-02] MEDS ORDERED: HYDROCODONE/ACETAMINOPHEN 5/325MG TABLET PO PRN (09:45)
[2017-07-02] MEDS: PHENYTOIN SODIUM EXTENDED 100MG CAPSULE PO SCH ×3 (10:01→17:11)
[2017-07-02] MEDS: LEVOTHYROXINE SODIUM 50MCG TABLET PO SCH (10:01)
[2017-07-02] MEDS ORDERED: HEPARIN SODIUM 1,000 UNIT/1ML VIAL IV NR (10:45)
[2017-07-02] MEDS ORDERED: PIPERACILLIN/TAZ 3.375G PREMIX 50 ML IV SCH (11:15)
[2017-07-02 12:00] VITALS: BP 175/108
[2017-07-02] MEDS: SEVELAMER CARBONATE 800 MG TABLET PO SCH ×2 (12:09→17:11)
[2017-07-02] MEDS ORDERED: PIPERACILLIN/TAZ 2.25G PREMIX 50 ML IV SCH (13:00)
[2017-07-02 16:17] VITALS: BP 138/86
[2017-07-02] MEDS: DIPHENHYDRAMINE 50MG/ML VIAL IV PRN ×2 (17:11→23:27)
[2017-07-02] MEDS ORDERED: GENTAMICIN 120MG PREMIX 100 ML IV NR (18:00)
[2017-07-02 20:00] VITALS: BP 135/84
[2017-07-02] MEDS: ONDANSETRON HCL 4MG/2ML VIAL IV PRN (20:45)
[2017-07-02] MEDS: ACETAMINOPHEN 325MG TABLET PO PRN (20:47)
[2017-07-02] MEDS ORDERED: VANCOMYCIN 1 G PREMIX 200 ML IV NR (23:00)
[2017-07-03] VITALS: BP 100/62
[2017-07-03] MEDS: MORPHINE SULFATE 4 MG/ML CPJ (NOT FOR IM USE) IV PRN ×5 (02:19→22:32)
[2017-07-03 04:00] VITALS: BP 96/60
[2017-07-03 06:37] LABS: HEMATOCRIT 25.1 % (36.0-48.0); HEMOGLOBIN 8.4 g/dL (12.0-16.0); MEAN CORPUSCULAR HEMOGLOBIN 32.5 pg (28.0-32.0); PLATELET 142 x1000/uL (130-400); RED BLOOD CELL COUNT 2.58 mill/uL (4.2-5.4); RED CELL DISTRIBUTION WIDTH 15.6 % (11.6-14.6)
[2017-07-03] MEDS: DIPHENHYDRAMINE 50MG/ML VIAL IV PRN ×3 (06:41→22:32)
[2017-07-03] MEDS: LEVOTHYROXINE SODIUM 50MCG TABLET PO SCH (06:41)
[2017-07-03 08:00] VITALS: BP 94/64
[2017-07-03] MEDS: LOSARTAN POTASSIUM 50 MG TABLET PO SCH (09:00)
[2017-07-03] MEDS: CARVEDILOL 12.5MG TABLET PO SCH ×2 (09:00→21:03)
[2017-07-03] MEDS: ONDANSETRON HCL 4MG/2ML VIAL IV PRN ×2 (09:31→17:54)
[2017-07-03] MEDS: SEVELAMER CARBONATE 800 MG TABLET PO SCH ×3 (09:31→16:14)
[2017-07-03] MEDS: PHENYTOIN SODIUM EXTENDED 100MG CAPSULE PO SCH ×3 (09:31→16:13)
[2017-07-03 12:00] VITALS: BP 95/63
[2017-07-03 16:00] VITALS: BP 116/76
[2017-07-03] MEDS: PIPERACILLIN/TAZ 2.25G PREMIX 50 ML IV SCH (17:53)
[2017-07-03 20:00] VITALS: BP 112/76
[2017-07-03] MEDS: ACETAMINOPHEN 325MG TABLET PO PRN (21:03)
[2017-07-04] VITALS: BP 97/67
[2017-07-04] MEDS: ONDANSETRON HCL 4MG/2ML VIAL IV PRN ×2 (01:06→22:13)
[2017-07-04] MEDS: PIPERACILLIN/TAZ 2.25G PREMIX 50 ML IV SCH ×3 (01:06→17:09)
[2017-07-04 04:00] VITALS: BP 90/59
[2017-07-04 06:07] LABS: BASOPHILS % 0.4 % (0.0-2.0); EOSINOPHILS % 11.5 % (0.0-5.0); HEMATOCRIT. 24.5 % (36.0-48.0); HEMOGLOBIN. 8.2 g/dL (12.0-16.0); LYMPHOCYTES % 9.2 % (20.0-50.0); MEAN CORPUSCULAR HEMOGLOBIN 32.5 pg (28.0-32.0); MEAN CORPUSCULAR VOLUME 96.8 fL (81.0-99.0); MEAN PLATELET VOLUME 8.9 fl (7.4-10.4); NEUTROPHILS % 68.9 % (40.0-76.0); PLATELET 160 x1000/uL (130-400); RED BLOOD CELL COUNT 2.53 mill/uL (4.2-5.4); RED CELL DISTRIBUTION WIDTH 15.7 % (11.6-14.6)
[2017-07-04] MEDS: LEVOTHYROXINE SODIUM 50MCG TABLET PO SCH (06:22)
[2017-07-04] MEDS: DIPHENHYDRAMINE 50MG/ML VIAL IV PRN ×3 (06:40→20:51)
[2017-07-04] MEDS: MORPHINE SULFATE 4 MG/ML CPJ (NOT FOR IM USE) IV PRN ×2 (06:41→19:52)
[2017-07-04 06:43] LABS: GENTAMICIN RANDOM 3.7 ug/mL
[2017-07-04] MEDS: CARVEDILOL 12.5MG TABLET PO SCH ×3 (08:22→20:21)
[2017-07-04] MEDS: LOSARTAN POTASSIUM 50 MG TABLET PO SCH ×2 (08:23→11:42)
[2017-07-04 08:28] VITALS: BP 123/83
[2017-07-04] MEDS: SEVELAMER CARBONATE 800 MG TABLET PO SCH ×3 (08:32→17:10)
[2017-07-04] MEDS: PHENYTOIN SODIUM EXTENDED 100MG CAPSULE PO SCH ×3 (08:32→17:10)
[2017-07-04] MEDS: ACETAMINOPHEN 325MG TABLET PO PRN ×2 (11:35→19:53)
[2017-07-04] MEDS ORDERED: VANCOMYCIN 750 MG PREMIX 150 ML IV SCH (12:00)
[2017-07-04 12:42] VITALS: BP 146/86
[2017-07-04] MEDS ORDERED: SODIUM CHLORIDE 0.9% 250 ML IV ONE (14:45)
[2017-07-04] MEDS ORDERED: MIDODRINE HCL 5MG TABLET PO NR (14:51)
[2017-07-04] MEDS ORDERED: SODIUM CHLORIDE 0.9% 250 ML IV NR (15:00)
[2017-07-04 16:32] VITALS: BP 77/47
[2017-07-04 20:00] VITALS: BP 102/69
[2017-07-05] VITALS: BP 95/63
[2017-07-05] MEDS: PIPERACILLIN/TAZ 2.25G PREMIX 50 ML IV SCH ×2 (00:20→09:34)
[2017-07-05] MEDS: MORPHINE SULFATE 4 MG/ML CPJ (NOT FOR IM USE) IV PRN ×2 (02:27→06:41)
[2017-07-05 04:00] VITALS: BP 111/76
[2017-07-05] MEDS: DIPHENHYDRAMINE 50MG/ML VIAL IV PRN ×3 (04:15→18:37)
[2017-07-05] MEDS: LEVOTHYROXINE SODIUM 50MCG TABLET PO SCH (06:20)
[2017-07-05 06:41] LABS: HEMATOCRIT. 29.4 % (36.0-48.0); HEMOGLOBIN. 9.6 g/dL (12.0-16.0); MEAN CORPUSCULAR HEMOGLOBIN 31.8 pg (28.0-32.0); MEAN CORPUSCULAR VOLUME 97.5 fL (81.0-99.0); MEAN PLATELET VOLUME 8.7 fl (7.4-10.4); PLATELET 185 x1000/uL (130-400); RED BLOOD CELL COUNT 3.01 mill/uL (4.2-5.4); RED CELL DISTRIBUTION WIDTH 15.4 % (11.6-14.6)
[2017-07-05 07:21] VITALS: BP 77/43
[2017-07-05] MEDS: CARVEDILOL 12.5MG TABLET PO SCH ×2 (09:00→20:48)
[2017-07-05] MEDS: PHENYTOIN SODIUM EXTENDED 100MG CAPSULE PO SCH ×3 (09:33→17:02)
[2017-07-05] MEDS: SEVELAMER CARBONATE 800 MG TABLET PO SCH ×3 (09:33→17:02)
[2017-07-05 10:40] LABS: PLATELET ESTIMATE NORMAL
[2017-07-05] MEDS ORDERED: AMPICILLIN 2,000 MG in SODIUM CHLORIDE 0.9% 100 ML IV SCH (16:00)
[2017-07-05] MEDS: MORPHINE SULFATE 2 MG/ML CPJ (NOT FOR IM USE) IV PRN ×2 (17:04→22:10)
[2017-07-05] MEDS: AMPICILLIN 2000MG in SODIUM CHLORIDE 0.9% 100ML IV SCH (17:17)
[2017-07-05] MEDS: ONDANSETRON HCL 4MG/2ML VIAL IV PRN (22:09)
[2017-07-06] MEDS: DIPHENHYDRAMINE 50MG/ML VIAL IV PRN ×4 (03:54→23:57)
[2017-07-06] MEDS: MORPHINE SULFATE 2 MG/ML CPJ (NOT FOR IM USE) IV PRN ×5 (03:56→22:43)
[2017-07-06] MEDS: LEVOTHYROXINE SODIUM 50MCG TABLET PO SCH (06:07)
[2017-07-06] MEDS: AMPICILLIN 2000MG in SODIUM CHLORIDE 0.9% 100ML IV SCH ×2 (06:07→17:44)
[2017-07-06 06:42] LABS: HEMATOCRIT. 27.8 % (36.0-48.0); HEMOGLOBIN. 9.2 g/dL (12.0-16.0); MEAN CORPUSCULAR HEMOGLOBIN 32.3 pg (28.0-32.0); MEAN CORPUSCULAR VOLUME 97.1 fL (81.0-99.0); MEAN PLATELET VOLUME 8.7 fl (7.4-10.4); PLATELET 190 x1000/uL (130-400); RED BLOOD CELL COUNT 2.86 mill/uL (4.2-5.4); RED CELL DISTRIBUTION WIDTH 15.3 % (11.6-14.6)
[2017-07-06] MEDS: LOSARTAN POTASSIUM 50 MG TABLET PO SCH (07:38)
[2017-07-06] MEDS: CARVEDILOL 12.5MG TABLET PO SCH ×2 (07:38→21:08)
[2017-07-06 08:30] VITALS: BP 119/76
[2017-07-06 08:32] VITALS: BP 111/78
[2017-07-06] MEDS: PHENYTOIN SODIUM EXTENDED 100MG CAPSULE PO SCH ×3 (09:25→17:44)
[2017-07-06] MEDS: SEVELAMER CARBONATE 800 MG TABLET PO SCH ×3 (09:25→17:44)
[2017-07-06 09:55] LABS: PLATELET ESTIMATE NORMAL
[2017-07-06 12:54] VITALS: BP 126/84
[2017-07-06] MEDS: ONDANSETRON HCL 4MG/2ML VIAL IV PRN (14:00)
[2017-07-06 17:06] VITALS: BP 125/91
[2017-07-06 19:55] VITALS: BP 141/103
[2017-07-06] MEDS ORDERED: LORAZEPAM 1MG TABLET PO PRN (20:00)
[2017-07-06 23:50] VITALS: BP 91/59
[2017-07-07] VITALS (13 sets, daily range): BP systolic 99–131; BP diastolic 62–97
[2017-07-07] MEDS: MORPHINE SULFATE 2 MG/ML CPJ (NOT FOR IM USE) IV PRN ×2 (04:04→08:42)
[2017-07-07] MEDS: AMPICILLIN 2000MG in SODIUM CHLORIDE 0.9% 100ML IV SCH (05:46)
[2017-07-07] MEDS: LEVOTHYROXINE SODIUM 50MCG TABLET PO SCH (06:07)
[2017-07-07] MEDS: DIPHENHYDRAMINE 50MG/ML VIAL IV PRN (06:30)
[2017-07-07] MEDS: SEVELAMER CARBONATE 800 MG TABLET PO SCH (07:50)
[2017-07-07] MEDS: CARVEDILOL 12.5MG TABLET PO SCH (08:32)
[2017-07-07] MEDS: LOSARTAN POTASSIUM 50 MG TABLET PO SCH (08:35)
[2017-07-07] MEDS: PHENYTOIN SODIUM EXTENDED 100MG CAPSULE PO SCH (08:35)
[2017-07-07] MEDS ORDERED: LIDOCAINE HCL 1% 20ML VIAL (Pyxis) INJ ONE (10:14)
[2017-07-07] MEDS ORDERED: SODIUM BICARBONATE 4% (2.4MEQ) 5ML VIAL IV ONE (10:14)
[2017-07-07] MEDS ORDERED: FENTANYL CITRATE/PF 50MCG/ML 2ML VIAL ONE (11:17)
[2017-07-07] MEDS ORDERED: FENTANYL CITRATE/PF 50MCG/ML 2ML VIAL IV ONE (11:30)
[2017-07-07] MEDS ORDERED: HYDROCODONE/ACETAMINOPHEN 5/325MG TABLET PO PRN (12:00)
[2017-07-07] MEDS ORDERED: SEVE800T8 PO (12:03)
[2017-07-07] MEDS ORDERED: LEVO25TA7 PO (12:03)
[2017-07-07] MEDS ORDERED: LOSA50TA20 PO (12:03)
[2017-07-07] MEDS ORDERED: COR6 PO (12:03)
== END 2017-07-07 12:15 | disposition left against medical advice (07) | DRG 314 ==
LOC: ER 20:15 → 6WST 07-02 01:52 → EDBEDREQ 07-02 01:58 → EDBEDREQSVC 07-02 04:37 → ENRESERV 07-02 07:39
PROVIDERS: ADMIT Internal Medicine; ATTEND Internal Medicine
PROC: 5A1D70Z Performance of Urinary Filtration, Intermittent, Less than 6 Hours Per Day (ICD-10-PCS; 2017-07-02)
PROC: 5A1D70Z Performance of Urinary Filtration, Intermittent, Less than 6 Hours Per Day (ICD-10-PCS; 2017-07-04)
PROC: 05PYX3Z Removal of Infusion Device from Upper Vein, External Approach (ICD-10-PCS; principal; 2017-07-05)
PROC: B5181ZZ Fluoroscopy of Superior Vena Cava using Low Osmolar Contrast (ICD-10-PCS; 2017-07-05)
PROC: 02H633Z Insertion of Infusion Device into Right Atrium, Percutaneous Approach (ICD-10-PCS; 2017-07-07)
PROC: 5A1D70Z Performance of Urinary Filtration, Intermittent, Less than 6 Hours Per Day (ICD-10-PCS; 2017-07-07)
DX: T80.211A Bloodstream infection due to central venous catheter, initial encounter (principal); A41.51 Sepsis due to Escherichia coli [E. coli]; I13.2 Hypertensive heart and chronic kidney disease with heart failure and with stage 5 chronic kidney disease, or end stage renal disease; E44.0 Moderate protein-calorie malnutrition; I27.20 Pulmonary hypertension, unspecified; I42.9 Cardiomyopathy, unspecified; N18.6 End stage renal disease; I50.23 Acute on chronic systolic (congestive) heart failure; Z68.1 Body mass index [BMI] 19.9 or less, adult; D63.1 Anemia in chronic kidney disease; G40.909 Epilepsy, unspecified, not intractable, without status epilepticus; E03.9 Hypothyroidism, unspecified; F17.210 Nicotine dependence, cigarettes, uncomplicated; F10.20 Alcohol dependence, uncomplicated; K70.31 Alcoholic cirrhosis of liver with ascites; Z53.21 Procedure and treatment not carried out due to patient leaving prior to being seen by health care provider; Y84.8 Other medical procedures as the cause of abnormal reaction of the patient, or of later complication, without mention of misadventure at the time of the procedure; Z99.2 Dependence on renal dialysis; Z91.19 Patient's noncompliance with other medical treatment and regimen; Z90.10 Acquired absence of unspecified breast and nipple; Z91.018 Allergy to other foods; Z91.010 Allergy to peanuts; Z79.899 Other long term (current) drug therapy; Y92.89 Other specified places as the place of occurrence of the external cause; I25.2 Old myocardial infarction
CPT/HCPCS: 36415; 36569; 36589; 70450; 71045; 76937; 77001; 80048; 80051; 80053; 80170; 80202; 83605; 83690; 83880; 84484; 85025; 85027; 85610; 87040; 87070; 87077; 87186; 87804; 93005; 93306; 96374; 96375; 96376; 99285; C1750; C1769; C1887; C1893; J0290; J1200; J1580; J1642; J1644; J1885; J2270; J2405; J2543; J3010; J3370; J3490; J7050

== ENCOUNTER 2017-07-13 20:28 | Inpatient (IN) | payer MEDICARE, MEDICAID ==
[~2017-07-13] VITALS: Ht 167.6 cm; Wt 55.8 kg
[2017-07-13] MEDS ORDERED: MORPHINE SULFATE 4 MG/ML CPJ (NOT FOR IM USE) IV STA (23:38)
[2017-07-13] MEDS ORDERED: DIPHENHYDRAMINE 50MG/ML VIAL IV ONE (23:45)
[2017-07-14 00:01] LABS: BASOPHILS % 1.4 % (0.0-2.0); EOSINOPHILS % 7.1 % (0.0-5.0); HEMATOCRIT. 22.6 % (36.0-48.0); HEMOGLOBIN. 7.4 g/dL (12.0-16.0); LYMPHOCYTES % 31.7 % (20.0-50.0); MEAN CORPUSCULAR HEMOGLOBIN 31.2 pg (28.0-32.0); MEAN CORPUSCULAR VOLUME 94.4 fL (81.0-99.0); MEAN PLATELET VOLUME 6.5 fl (7.4-10.4); MONOCYTES % 9.4 % (2.0-8.0); NEUTROPHILS % 50.4 % (40.0-76.0); PLATELET 386 x1000/uL (130-400); RED BLOOD CELL COUNT 2.39 mill/uL (4.2-5.4)
[2017-07-14 10:49] VITALS: BP 187/128
[2017-07-14 12:00] VITALS: BP 168/120
[2017-07-14] MEDS ORDERED: DIPHENHYDRAMINE 50MG/ML VIAL IV NR (12:00)
[2017-07-14 12:13] LABS: HEPATITIS B SURFACE ANTIGEN NEGATIVE
[2017-07-14 12:43] LABS: HEPATITIS A AB IGM NEGATIVE (NEGATIVE)
[2017-07-14] MEDS ORDERED: ACETAMINOPHEN 325MG TABLET PO PRN (15:00)
[2017-07-14] MEDS ORDERED: CLONIDINE 0.1MG TABLET PO PRN (15:00)
[2017-07-14] MEDS ORDERED: ONDANSETRON HCL 4MG/2ML INJ IV PRN (15:00)
[2017-07-14] MEDS ORDERED: MAGNESIUM/ALUMINUM HYDROXIDE/SIMETHICONE 30ML UDC PO PRN (15:00)
[2017-07-14] MEDS: KETOROLAC 15MG/ML VIAL IV PRN ×2 (15:35→22:37)
[2017-07-14 16:00] VITALS: BP 160/106
[2017-07-14] MEDS ORDERED: HEPARIN SODIUM 1,000 UNIT/1ML VIAL IV NR (16:00)
[2017-07-14] MEDS ORDERED: TRAMADOL 50MG TABLET PO NR (17:30)
[2017-07-14] MEDS: SEVELAMER CARBONATE 800 MG TABLET PO SCH (17:32)
[2017-07-14] MEDS: PHENYTOIN SODIUM EXTENDED 100MG CAPSULE PO SCH (17:33)
[2017-07-14] MEDS: DIPHENHYDRAMINE 50MG/ML VIAL IV PRN ×2 (17:37→22:42)
[2017-07-14 20:00] VITALS: BP 159/89
[2017-07-14] MEDS: SODIUM CHLORIDE 0.9% INJ 3ML FLUSH IVF SCH (21:01)
[2017-07-14] MEDS: CARVEDILOL 12.5MG TABLET PO SCH (21:01)
[2017-07-14] MEDS ORDERED: TEMAZEPAM 15MG CAPSULE PO PRN (21:30)
[2017-07-15] VITALS: BP 154/93
[2017-07-15] MEDS: DIPHENHYDRAMINE 50MG/ML VIAL IV PRN ×3 (02:29→15:03)
[2017-07-15 04:00] VITALS: BP 124/81
[2017-07-15] MEDS: KETOROLAC 15MG/ML VIAL IV PRN ×2 (05:51→12:05)
[2017-07-15] MEDS: SODIUM CHLORIDE 0.9% INJ 3ML FLUSH IVF SCH ×2 (05:51→15:03)
[2017-07-15] MEDS ORDERED: LEVOTHYROXINE SODIUM 50MCG TABLET PO SCH (07:10)
[2017-07-15] MEDS: SEVELAMER CARBONATE 800 MG TABLET PO SCH ×2 (07:55→12:05)
[2017-07-15] MEDS: CARVEDILOL 12.5MG TABLET PO SCH (07:56)
[2017-07-15] MEDS: PHENYTOIN SODIUM EXTENDED 100MG CAPSULE PO SCH ×2 (07:56→12:05)
[2017-07-15 08:00] VITALS: BP 160/104
[2017-07-15] MEDS ORDERED: LOSARTAN POTASSIUM 50 MG TABLET PO SCH (09:00)
[2017-07-15] MEDS ORDERED: AMLODIPINE 10MG TABLET PO SCH (09:00)
[2017-07-15 12:00] VITALS: BP 134/94
[2017-07-15 16:00] VITALS: BP 118/80
[2017-07-15] MEDS ORDERED: LORAZEPAM 1MG TABLET PO PRN (16:15)
[2017-10-25] MEDS ORDERED: FLUO-124 PO (05:38)
[2017-10-25] MEDS ORDERED: FURO40TA5 PO (05:38)
[2017-10-26] MEDS ORDERED: PROT40 PO (18:43)
[2018-04-19] MEDS ORDERED: DIPH25TA62 PO (11:53)
[2018-04-19] MEDS ORDERED: PHEN100C4 PO (11:54)
== END 2017-07-15 16:30 | disposition left against medical advice (07) | DRG 291 ==
LOC: ER 21:13 → 8WST 07-14 06:52 → ENRESERV 07-14 09:19
PROVIDERS: ADMIT Internal Medicine; ATTEND Internal Medicine
PROC: 5A1D70Z Performance of Urinary Filtration, Intermittent, Less than 6 Hours Per Day (ICD-10-PCS; principal; 2017-07-14)
PROC: 5A1D70Z Performance of Urinary Filtration, Intermittent, Less than 6 Hours Per Day (ICD-10-PCS; 2017-07-15)
DX: I13.2 Hypertensive heart and chronic kidney disease with heart failure and with stage 5 chronic kidney disease, or end stage renal disease (principal); N18.6 End stage renal disease; I27.20 Pulmonary hypertension, unspecified; I50.23 Acute on chronic systolic (congestive) heart failure; E03.9 Hypothyroidism, unspecified; G89.4 Chronic pain syndrome; G40.909 Epilepsy, unspecified, not intractable, without status epilepticus; D63.8 Anemia in other chronic diseases classified elsewhere; F41.1 Generalized anxiety disorder; K21.9 Gastro-esophageal reflux disease without esophagitis; E05.90 Thyrotoxicosis, unspecified without thyrotoxic crisis or storm; F10.10 Alcohol abuse, uncomplicated; F14.10 Cocaine abuse, uncomplicated; Z53.21 Procedure and treatment not carried out due to patient leaving prior to being seen by health care provider; Z82.49 Family history of ischemic heart disease and other diseases of the circulatory system; Z99.2 Dependence on renal dialysis; Z79.899 Other long term (current) drug therapy; Z91.010 Allergy to peanuts; Z83.3 Family history of diabetes mellitus; Z91.15 Patient's noncompliance with renal dialysis; Z91.19 Patient's noncompliance with other medical treatment and regimen
CPT/HCPCS: 36415; 71045; 80048; 86705; 86706; 86709; 86803; 87340; 93005; 96374; 96375; 99285; J1200; J1644; J1885; J2270; J7030

== ENCOUNTER 2017-12-13 23:44 | Emergency (ER) | payer MEDICARE, MEDICAID ==
[~2017-12-13] VITALS: Ht 167.6 cm; Wt 70.0 kg
[~2017-12-13 23:44] MED LIST changes: +FLUO-124 PO; +FURO40TA5 PO; -LORA1TAB PO; -LOSA50TA20 PO; +PROT40 PO; -SEVE800T8 PO
[2017-12-13 23:51] VITALS: BP 136/89
== END 2017-12-14 09:06 | disposition left against medical advice (07) ==
LOC: ER 12-14 00:29
DX: M54.9 Dorsalgia, unspecified (principal); Z53.21 Procedure and treatment not carried out due to patient leaving prior to being seen by health care provider

== ENCOUNTER 2018-01-01 14:38 | Emergency (ER) | payer MEDICARE, MEDICAID ==
[~2018-01-01] VITALS: Ht 170.2 cm; Wt 55.0 kg
[2018-01-01] MEDS ORDERED: ONDANSETRON HCL 4MG/2ML VIAL IV STA (15:02)
[2018-01-01] MEDS ORDERED: MORPHINE SULFATE 4 MG/ML CPJ (NOT FOR IM USE) IV STA (15:02)
[2018-01-01 16:31] LABS: CHLORIDE 99 mEq/L (98-107); HEMATOCRIT. 22.3 % (36.0-48.0); HEMOGLOBIN. 7.5 g/dL (12.0-16.0); MEAN CORPUSCULAR HEMOGLOBIN 32.5 pg (28.0-32.0); MEAN CORPUSCULAR VOLUME 96.1 fL (81.0-99.0); MEAN PLATELET VOLUME 7.7 fl (7.4-10.4); PLATELET 216 x1000/uL (130-400); RED BLOOD CELL COUNT 2.32 mill/uL (4.2-5.4); RED CELL DISTRIBUTION WIDTH 18.3 % (11.6-14.6)
[2018-01-01 16:32] LABS: INR 1.2; PROTHROMBIN TIME 12.2 sec (9.4-11.6)
[2018-01-01 16:46] LABS: PLATELET ESTIMATE NORMAL
[2018-01-01] MEDS ORDERED: DIPHENHYDRAMINE 25MG CAPSULE PO ONE (17:00)
[2018-01-01] MEDS ORDERED: DIPHENHYDRAMINE 50MG/ML VIAL IV ONE (17:15)
[2018-01-01] MEDS ORDERED: POTASSIUM CHLORIDE 10MEQ TABLET SR PO ONE (17:15)
[2018-01-01 17:37] VITALS: BP 127/89
== END 2018-01-01 17:47 | disposition home or self-care (01) ==
LOC: ER 14:38
DX: R51 Headache (principal); E87.6 Hypokalemia; R10.33 Periumbilical pain; G89.29 Other chronic pain; I11.0 Hypertensive heart disease with heart failure; I50.9 Heart failure, unspecified; N28.9 Disorder of kidney and ureter, unspecified; R11.0 Nausea; R19.7 Diarrhea, unspecified; R07.9 Chest pain, unspecified; Z98.890 Other specified postprocedural states; Z91.010 Allergy to peanuts; Z91.018 Allergy to other foods; Z79.899 Other long term (current) drug therapy; Z87.891 Personal history of nicotine dependence; Z99.2 Dependence on renal dialysis
CPT/HCPCS: 36415; 70450; 80053; 85025; 85610; 93005; 96374; 96375; 99285; J1200; J2270; J2405; Q0163

== ENCOUNTER 2018-01-22 21:31 | Inpatient (IN) | payer MEDICARE, MEDICAID ==
[~2018-01-22] VITALS: Ht 165.1 cm; Wt 57.6 kg
[2018-01-22] MEDS ORDERED: MORPHINE SULFATE 4 MG/ML CPJ (NOT FOR IM USE) IV STA (22:40)
[2018-01-22] MEDS ORDERED: ONDANSETRON HCL 4MG/2ML VIAL IV STA (22:40)
[2018-01-22 23:32] LABS: MEAN CORPUSCULAR HEMOGLOBIN 34.2 pg (28.0-32.0); MEAN CORPUSCULAR VOLUME 99.4 fL (81.0-99.0); MEAN PLATELET VOLUME 7.2 fl (7.4-10.4); PLATELET 120 x1000/uL (130-400); RED BLOOD CELL COUNT 1.62 mill/uL (4.2-5.4); RED CELL DISTRIBUTION WIDTH 17.1 % (11.6-14.6)
[2018-01-22 23:39] LABS: INR 1.2; PROTHROMBIN TIME 12.2 sec (9.1-11.1)
[2018-01-22 23:42] LABS: CHLORIDE 99 mEq/L (98-107)
[2018-01-22 23:56] LABS: HEMATOCRIT. 16.1 % (36.0-48.0); HEMOGLOBIN. 5.6 g/dL (12.0-16.0)
[2018-01-23] VITALS (11 sets, daily range): BP systolic 155–197; BP diastolic 91–110
[2018-01-23] MEDS ORDERED: DIPHENHYDRAMINE 50MG/ML VIAL IV ONE (00:15)
[2018-01-23 01:37] LABS: PLATELET ESTIMATE NORMAL
[2018-01-23] MEDS ORDERED: KETOROLAC 30MG/ML VIAL IV ONE (02:15)
[2018-01-23] MEDS ORDERED: ONDANSETRON HCL 4MG/2ML VIAL IV PRN (06:00)
[2018-01-23] MEDS ORDERED: HYDROCODONE/ACETAMINOPHEN 5/325MG TABLET PO PRN (06:00)
[2018-01-23] MEDS ORDERED: ACETAMINOPHEN 325MG TABLET PO PRN (06:00)
[2018-01-23] MEDS ORDERED: IPRATROPIUM/ALBUTEROL 0.5-3(2.5)MG/3ML NEB INH PRN (06:00)
[2018-01-23] MEDS ORDERED: DOCUSATE SODIUM 100MG CAPSULE PO PRN (06:00)
[2018-01-23] MEDS ORDERED: MAGNESIUM/ALUMINUM HYDROXIDE/SIMETHICONE 30ML UDC PO PRN (06:00)
[2018-01-23] MEDS ORDERED: GUAIFENESIN 200MG/10ML SUGAR FREE UDC PO PRN (06:00)
[2018-01-23] MEDS ORDERED: ONDANSETRON 4MG ODT PO PRN (06:15)
[2018-01-23] MEDS: DIPHENHYDRAMINE 50MG/ML VIAL IV PRN ×4 (06:15→18:29)
[2018-01-23] MEDS: CLONIDINE 0.1MG TABLET PO PRN ×2 (07:44→19:51)
[2018-01-23] MEDS: HYDROMORPHONE HCL/PF 2MG/ML CPJ IV PRN ×4 (07:45→20:01)
[2018-01-23] MEDS: AMLODIPINE 10MG TABLET PO SCH ×2 (09:00→11:35)
[2018-01-23 10:07] LABS: HEMATOCRIT 22.8 % (36.0-48.0); HEMOGLOBIN 7.8 g/dL (12.0-16.0)
[2018-01-23] MEDS: LORAZEPAM 2MG/ML CPJ IV PRN ×2 (13:10→21:03)
[2018-01-23 20:31] LABS: HEMATOCRIT 28.2 % (36.0-48.0); HEMOGLOBIN 9.9 g/dL (12.0-16.0)
[2018-01-24] VITALS: BP 178/103
[2018-01-24] MEDS: HYDROMORPHONE HCL/PF 2MG/ML CPJ IV PRN (03:41)
[2018-01-24] MEDS: CLONIDINE 0.1MG TABLET PO PRN (03:46)
[2018-01-24 03:47] VITALS: BP 188/102
[2018-01-24] MEDS: DIPHENHYDRAMINE 50MG/ML VIAL IV PRN ×2 (04:31→09:12)
[2018-01-24 06:45] LABS: HEMATOCRIT. 28.8 % (36.0-48.0); HEMOGLOBIN. 9.8 g/dL (12.0-16.0); MEAN CORPUSCULAR HEMOGLOBIN 31.7 pg (28.0-32.0); MEAN CORPUSCULAR VOLUME 92.9 fL (81.0-99.0); MEAN PLATELET VOLUME 7.1 fl (7.4-10.4); PLATELET 131 x1000/uL (130-400); RED CELL DISTRIBUTION WIDTH 19.5 % (11.6-14.6)
[2018-01-24 06:49] LABS: CHLORIDE 98 mEq/L (98-107)
[2018-01-24] MEDS ORDERED: HYDRALAZINE HCL 50MG TABLET PO SCH (07:45)
[2018-01-24] MEDS: LORAZEPAM 2MG/ML CPJ IV PRN (07:58)
[2018-01-24 08:00] VITALS: BP 196/121
[2018-01-24 08:27] VITALS: BP 143/68
[2018-01-24 08:45] VITALS: BP 176/101
[2018-01-24] MEDS: AMLODIPINE 10MG TABLET PO SCH (09:12)
[2018-01-24 09:49] VITALS: BP 143/68
[2018-01-24 12:11] LABS: PLATELET ESTIMATE NORMAL
== END 2018-01-24 10:33 | disposition home or self-care (01) | DRG 291 ==
LOC: ER 21:31 → 8WST 01-23 01:49 → EDBEDREQ 01-23 01:51 → EDBEDREQTM 01-23 01:51 → ENRESERV 01-23 02:57
PROVIDERS: ADMIT Hospitalist; ATTEND Hospitalist
PROC: 30233N1 Transfusion of Nonautologous Red Blood Cells into Peripheral Vein, Percutaneous Approach (ICD-10-PCS; principal; 2018-01-23)
PROC: 5A1D70Z Performance of Urinary Filtration, Intermittent, Less than 6 Hours Per Day (ICD-10-PCS; 2018-01-23)
DX: I13.2 Hypertensive heart and chronic kidney disease with heart failure and with stage 5 chronic kidney disease, or end stage renal disease (principal); I50.33 Acute on chronic diastolic (congestive) heart failure; N18.6 End stage renal disease; D61.818 Other pancytopenia; E46 Unspecified protein-calorie malnutrition; R18.8 Other ascites; D63.1 Anemia in chronic kidney disease; F10.10 Alcohol abuse, uncomplicated; F17.200 Nicotine dependence, unspecified, uncomplicated; F20.9 Schizophrenia, unspecified; F31.9 Bipolar disorder, unspecified; G40.909 Epilepsy, unspecified, not intractable, without status epilepticus; Z91.15 Patient's noncompliance with renal dialysis; Z91.19 Patient's noncompliance with other medical treatment and regimen; Z99.2 Dependence on renal dialysis; Z91.018 Allergy to other foods; Z79.899 Other long term (current) drug therapy; Z68.21 Body mass index [BMI] 21.0-21.9, adult
CPT/HCPCS: 36415; 80048; 80053; 83690; 85014; 85018; 85025; 85610; 86850; 86900; 86920; 93005; 96374; 96375; 99285; C1893; J1170; J1200; J1885; J2060; J2270; J2405; J7030; J7040; J7050; J7060; P9016

== ENCOUNTER 2018-02-02 15:39 | Inpatient (IN) | payer MEDICARE, MEDICAID ==
[~2018-02-02] VITALS: Ht 167.6 cm; Wt 69.9 kg
[2018-02-02] MEDS ORDERED: CLONIDINE 0.1MG TABLET PO ONE (17:00)
[2018-02-02 17:43] LABS: HEMATOCRIT. 25.4 % (36.0-48.0); HEMOGLOBIN. 8.7 g/dL (12.0-16.0); MEAN CORPUSCULAR HEMOGLOBIN 32.3 pg (28.0-32.0); MEAN CORPUSCULAR VOLUME 94.7 fL (81.0-99.0); MEAN PLATELET VOLUME 7.6 fl (7.4-10.4); PLATELET 201 x1000/uL (130-400); RED BLOOD CELL COUNT 2.69 mill/uL (4.2-5.4); RED CELL DISTRIBUTION WIDTH 19.2 % (11.6-14.6)
[2018-02-02 17:46] LABS: CHLORIDE 100 mEq/L (98-107)
[2018-02-02 17:47] LABS: INR 1.1; PROTHROMBIN TIME 11.2 sec (9.1-11.1)
[2018-02-02 17:53] LABS: HCG SCREEN NEGATIVE
[2018-02-02 18:02] LABS: PLATELET ESTIMATE NORMAL
[2018-02-02] MEDS ORDERED: ACETAMINOPHEN 325MG TABLET PO NR (20:00)
[2018-02-02] MEDS ORDERED: IPRATROPIUM/ALBUTEROL 0.5-3(2.5)MG/3ML NEB INH PRN (21:45)
[2018-02-02] MEDS ORDERED: LORAZEPAM 0.5MG TABLET PO PRN (21:45)
[2018-02-02] MEDS ORDERED: ACETAMINOPHEN 325MG TABLET PO PRN (21:45)
[2018-02-02] MEDS ORDERED: GUAIFENESIN 200MG/10ML SUGAR FREE UDC PO PRN (21:45)
[2018-02-02] MEDS ORDERED: ONDANSETRON HCL 4MG/2ML VIAL IV PRN (21:45)
[2018-02-02 23:00] VITALS: BP 163/119
[2018-02-02] MEDS ORDERED: DIPHENHYDRAMINE 50MG/ML VIAL IV NR (23:30)
[2018-02-03] VITALS: BP 168/119
[2018-02-03] MEDS ORDERED: HEPARIN SODIUM 1,000 UNIT/1ML VIAL IV NR (01:30)
[2018-02-03] MEDS ORDERED: HYDRALAZINE 20MG/ML VIAL IV PRN (03:00)
[2018-02-03] MEDS ORDERED: CLONIDINE 0.2MG TABLET PO PRN (03:00)
[2018-02-03 04:00] VITALS: BP 158/106
[2018-02-03] MEDS: PHENYTOIN SODIUM EXTENDED 100MG CAPSULE PO SCH ×2 (05:17→14:35)
[2018-02-03] MEDS: SODIUM CHLORIDE 0.9% INJ 3ML FLUSH IVF SCH ×2 (05:19→14:40)
[2018-02-03] MEDS ORDERED: LEVOTHYROXINE SODIUM 50MCG TABLET PO SCH (07:40)
[2018-02-03 08:00] VITALS: BP 156/103
[2018-02-03] MEDS: SEVELAMER CARBONATE 800 MG TABLET PO SCH ×3 (08:18→16:40)
[2018-02-03] MEDS ORDERED: CARVEDILOL 12.5MG TABLET PO SCH (09:00)
[2018-02-03] MEDS ORDERED: AMLODIPINE 10MG TABLET PO SCH (09:00)
[2018-02-03] MEDS ORDERED: FOLIC ACID/VITAMIN B COMP W-C TABLET PO SCH (09:00)
[2018-02-03] MEDS ORDERED: LOSARTAN POTASSIUM 50 MG TABLET PO SCH (10:45)
[2018-02-03] MEDS: DIPHENHYDRAMINE 50MG/ML VIAL IV PRN ×2 (12:58→16:38)
[2018-02-03 15:47] VITALS: BP 121/77
== END 2018-02-03 18:30 | disposition home or self-care (01) | DRG 291 ==
LOC: ER 16:15 → 7WST 18:42 → EDBEDREQ 19:06 → ENRESERV 20:30
PROVIDERS: ADMIT Internal Medicine; ATTEND Internal Medicine
PROC: 5A1D70Z Performance of Urinary Filtration, Intermittent, Less than 6 Hours Per Day (ICD-10-PCS; principal; 2018-02-02)
DX: I13.2 Hypertensive heart and chronic kidney disease with heart failure and with stage 5 chronic kidney disease, or end stage renal disease (principal); N18.6 End stage renal disease; I50.22 Chronic systolic (congestive) heart failure; N17.9 Acute kidney failure, unspecified; D64.9 Anemia, unspecified; F14.10 Cocaine abuse, uncomplicated; F41.9 Anxiety disorder, unspecified; E03.9 Hypothyroidism, unspecified; E11.22 Type 2 diabetes mellitus with diabetic chronic kidney disease; F41.1 Generalized anxiety disorder; G40.909 Epilepsy, unspecified, not intractable, without status epilepticus; Z82.49 Family history of ischemic heart disease and other diseases of the circulatory system; Z83.3 Family history of diabetes mellitus; Z99.2 Dependence on renal dialysis; Z91.018 Allergy to other foods; Z79.899 Other long term (current) drug therapy; Z98.891 History of uterine scar from previous surgery
CPT/HCPCS: 36415; 71045; 80053; 82962; 84484; 84703; 85025; 85610; 93005; 99285; J1200; J1644; J2405; J7030

== ENCOUNTER 2018-02-18 05:40 | Inpatient (IN) | payer MEDICARE, MEDICAID ==
[~2018-02-18] VITALS: Ht 165.1 cm; Wt 59.4 kg
[2018-02-18] MEDS ORDERED: SODIUM CHLORIDE 0.9% 1,000 ML IV ONE (06:43)
[2018-02-18] MEDS ORDERED: PANTOPRAZOLE SODIUM 40 MG/VIAL IV ONE (06:45)
[2018-02-18] MEDS ORDERED: ONDANSETRON HCL 4MG/2ML INJ IV ONE (07:15)
[2018-02-18 07:20] LABS: HEMATOCRIT. 24.7 % (36.0-48.0); HEMOGLOBIN. 8.1 g/dL (12.0-16.0); MEAN CORPUSCULAR HEMOGLOBIN 32.7 pg (28.0-32.0); MEAN CORPUSCULAR VOLUME 100.1 fL (81.0-99.0); MEAN PLATELET VOLUME 8.2 fl (7.4-10.4); PLATELET 160 x1000/uL (130-400); RED BLOOD CELL COUNT 2.47 mill/uL (4.2-5.4)
[2018-02-18 07:27] LABS: CHLORIDE 86 mEq/L (98-107)
[2018-02-18 07:28] LABS: INR 1.1; PARTIAL THROMBOPLASTIN TIME 26.7 sec (23.4-31.0); PROTHROMBIN TIME 11.3 sec (9.1-11.1)
[2018-02-18 07:30] LABS: AMMONIA 38 uMol/L (<32); ETHANOL BLOOD < 10 mg/dL
[2018-02-18 07:46] LABS: HCG SCREEN NEGATIVE
[2018-02-18 08:34] LABS: PLATELET ESTIMATE NORMAL
[2018-02-18] MEDS ORDERED: LACTULOSE 20G/30ML UDC PO ONE (10:00)
[2018-02-18] MEDS ORDERED: PHENYTOIN SODIUM 1,000 MG in SODIUM CHLORIDE 0.9% 100 ML IV ONE (10:00)
[2018-02-18] MEDS ORDERED: LORAZEPAM 2MG/ML CPJ ONE (10:17)
[2018-02-18] MEDS ORDERED: LORAZEPAM 2MG/ML CPJ IV ONE (10:30)
[2018-02-18] MEDS ORDERED: SODIUM BICARBONATE 8.4% 1 MEQ/ML 50ML SYR IV ONE ×4 (12:15→13:00)
[2018-02-18 12:53] LABS: BG BASE EXCESS -20.7 mmol/L (-2.0-2.0); BG CARBOXYHEMOGLOBIN 0.6 % (0.5-1.5); BG DEOXYHEMOGLOBIN 2.2 % (0.0-5.0); BG FRACTION INSPIRED OXYGEN 21; BG HCO3 ACT 5.7 mmol/L (22.0-26.0); BG METHEMOGLOBIN 0.5 % (0.0-1.5); BG OXYGEN SATURATION 97.8 % (92.0-98.5); BG OXYHEMOGLOBIN 96.7 % (94.0-97.0); BG PCO2 15.6 mmHg (35.0-45.0); BG PO2 130.7 mmHg (75.0-100.0); BG SAMPLE SITE RIGHT BRACHIAL; BG TOTAL HEMOGLOBIN 7.8 g/dL (12.0-18.0); BG VENT MODE ROOM AIR
[2018-02-18] MEDS ORDERED: ONDANSETRON HCL 4MG/2ML INJ IV PRN (14:45)
[2018-02-18] MEDS ORDERED: MAGNESIUM/ALUMINUM HYDROXIDE/SIMETHICONE 30ML UDC PO PRN (14:45)
[2018-02-18] MEDS ORDERED: ACETAMINOPHEN 325MG TABLET PO PRN (14:45)
[2018-02-18] MEDS ORDERED: IPRATROPIUM/ALBUTEROL 0.5-3(2.5)MG/3ML NEB INH PRN (14:45)
[2018-02-18 16:45] VITALS: BP 126/73
[2018-02-18 17:29] VITALS: BP 126/73
[2018-02-18 18:00] VITALS: BP 138/85
[2018-02-18 20:00] VITALS: BP 96/64
[2018-02-18] MEDS: CARVEDILOL 12.5MG TABLET NG SCH (21:00)
[2018-02-18 22:00] VITALS: BP 117/63
[2018-02-18] MEDS: SODIUM CHLORIDE 0.9% INJ 3ML FLUSH IVF SCH (22:04)
[2018-02-18] MEDS: PHENYTOIN SODIUM 100MG/2ML VIAL IV SCH (22:04)
[2018-02-19] VITALS (12 sets, daily range): BP systolic 110–143; BP diastolic 64–89
[2018-02-19] MEDS: PHENYTOIN SODIUM 100MG/2ML VIAL IV SCH ×3 (05:54→20:27)
[2018-02-19] MEDS: SODIUM CHLORIDE 0.9% INJ 3ML FLUSH IVF SCH ×3 (05:56→20:28)
[2018-02-19] MEDS: LEVOTHYROXINE SODIUM 50MCG TABLET NG SCH (05:56)
[2018-02-19 07:54] LABS: BG BASE EXCESS 2.9 mmol/L (-2.0-2.0); BG CARBOXYHEMOGLOBIN 0.8 % (0.5-1.5); BG DEOXYHEMOGLOBIN 3.4 % (0.0-5.0); BG FRACTION INSPIRED OXYGEN 21; BG HCO3 ACT 27.4 mmol/L (22.0-26.0); BG METHEMOGLOBIN 0.2 % (0.0-1.5); BG OXYGEN SATURATION 96.6 % (92.0-98.5); BG OXYHEMOGLOBIN 95.6 % (94.0-97.0); BG PCO2 41.4 mmHg (35.0-45.0); BG PH 7.438 (7.350-7.450); BG PO2 93.1 mmHg (75.0-100.0); BG SAMPLE SITE RIGHT RADIAL; BG TOTAL HEMOGLOBIN 8.2 g/dL (12.0-18.0); BG VENT MODE ROOM AIR
[2018-02-19 09:00] LABS: HEMATOCRIT. 22.5 % (36.0-48.0); HEMOGLOBIN. 7.6 g/dL (12.0-16.0); MEAN CORPUSCULAR HEMOGLOBIN 32.5 pg (28.0-32.0); MEAN CORPUSCULAR VOLUME 96.6 fL (81.0-99.0); MEAN PLATELET VOLUME 8.1 fl (7.4-10.4); PLATELET 138 x1000/uL (130-400); RED BLOOD CELL COUNT 2.33 mill/uL (4.2-5.4); RED CELL DISTRIBUTION WIDTH 18.9 % (11.6-14.6)
[2018-02-19] MEDS: AMLODIPINE 10MG TABLET NG SCH (09:26)
[2018-02-19] MEDS: CARVEDILOL 12.5MG TABLET NG SCH ×2 (09:27→20:28)
[2018-02-19] MEDS: LORAZEPAM 2MG/ML CPJ IV PRN ×2 (11:20→19:36)
[2018-02-19 13:18] LABS: PLATELET ESTIMATE NORMAL
[2018-02-19] MEDS: DIPHENHYDRAMINE 50MG/ML VIAL IV PRN ×2 (14:38→20:27)
[2018-02-19] MEDS ORDERED: VANCOMYCIN 1250MG in DEXTROSE 5% WATER 250ML IV NR (15:00)
[2018-02-20] VITALS (12 sets, daily range): BP systolic 125–165; BP diastolic 69–99
[2018-02-20] MEDS: SODIUM CHLORIDE 0.9% INJ 3ML FLUSH IVF SCH ×3 (06:00→21:53)
[2018-02-20] MEDS: PHENYTOIN SODIUM 100MG/2ML VIAL IV SCH ×3 (06:24→21:00)
[2018-02-20 07:03] LABS: HEMATOCRIT. 22.1 % (36.0-48.0); HEMOGLOBIN. 7.6 g/dL (12.0-16.0); MEAN CORPUSCULAR HEMOGLOBIN 32.9 pg (28.0-32.0); MEAN CORPUSCULAR VOLUME 95.7 fL (81.0-99.0); MEAN PLATELET VOLUME 7.9 fl (7.4-10.4); PLATELET 128 x1000/uL (130-400); RED BLOOD CELL COUNT 2.31 mill/uL (4.2-5.4); RED CELL DISTRIBUTION WIDTH 18.3 % (11.6-14.6)
[2018-02-20] MEDS: LEVOTHYROXINE SODIUM 50MCG TABLET NG SCH (07:30)
[2018-02-20] MEDS: DIPHENHYDRAMINE 50MG/ML VIAL IV PRN ×3 (08:29→21:44)
[2018-02-20] MEDS: CARVEDILOL 12.5MG TABLET NG SCH ×2 (09:00→20:53)
[2018-02-20] MEDS: AMLODIPINE 10MG TABLET NG SCH ×2 (09:00→14:19)
[2018-02-20] MEDS: LORAZEPAM 2MG/ML CPJ IV PRN ×3 (09:03→19:48)
[2018-02-20 09:14] LABS: PLATELET ESTIMATE SLIGHTLY DECREASED
[2018-02-20] MEDS: CLONIDINE 0.1MG TABLET PO PRN (19:40)
[2018-02-21] VITALS: BP 134/84
[2018-02-21] MEDS: LORAZEPAM 2MG/ML CPJ IV PRN ×3 (03:40→15:37)
[2018-02-21 04:00] VITALS: BP 145/95
[2018-02-21 06:00] VITALS: BP 143/63
[2018-02-21] MEDS: SODIUM CHLORIDE 0.9% INJ 3ML FLUSH IVF SCH ×3 (06:00→21:19)
[2018-02-21] MEDS: PHENYTOIN SODIUM 100MG/2ML VIAL IV SCH ×2 (06:10→15:36)
[2018-02-21 08:00] VITALS: BP 168/115
[2018-02-21] MEDS: AMLODIPINE 10MG TABLET NG SCH (09:06)
[2018-02-21] MEDS: CARVEDILOL 12.5MG TABLET NG SCH ×2 (09:06→21:18)
[2018-02-21 10:42] LABS: HEMATOCRIT. 24.4 % (36.0-48.0); HEMOGLOBIN. 8.3 g/dL (12.0-16.0); MEAN CORPUSCULAR VOLUME 96.8 fL (81.0-99.0); MEAN PLATELET VOLUME 8.2 fl (7.4-10.4); PLATELET 131 x1000/uL (130-400); RED BLOOD CELL COUNT 2.53 mill/uL (4.2-5.4); RED CELL DISTRIBUTION WIDTH 18.6 % (11.6-14.6)
[2018-02-21] MEDS: DIPHENHYDRAMINE 50MG/ML VIAL IV PRN (11:24)
[2018-02-21] MEDS ORDERED: VANCOMYCIN 1 G PREMIX 200 ML IV NR (15:00)
[2018-02-21 16:00] VITALS: BP 157/100
[2018-02-21] MEDS: DIPHENHYDRAMINE 25MG CAPSULE PO PRN (18:11)
[2018-02-21 20:00] VITALS: BP 159/111
[2018-02-21] MEDS: LORAZEPAM 1MG TABLET PO PRN (20:18)
[2018-02-21 20:37] LABS: PLATELET ESTIMATE NORMAL
[2018-02-21] MEDS: PHENYTOIN SODIUM EXTENDED 100MG CAPSULE PO SCH (21:18)
[2018-02-21] MEDS ORDERED: TEMAZEPAM 15MG CAPSULE PO PRN (21:30)
[2018-02-22] VITALS: BP 155/109
[2018-02-22] MEDS: DIPHENHYDRAMINE 25MG CAPSULE PO PRN ×2 (00:18→14:49)
[2018-02-22] MEDS: CLONIDINE 0.1MG TABLET PO PRN (00:35)
[2018-02-22 04:15] VITALS: BP 136/91
[2018-02-22] MEDS: PHENYTOIN SODIUM EXTENDED 100MG CAPSULE PO SCH ×2 (06:27→13:50)
[2018-02-22] MEDS: SODIUM CHLORIDE 0.9% INJ 3ML FLUSH IVF SCH ×2 (06:27→13:32)
[2018-02-22] MEDS: LEVOTHYROXINE SODIUM 50MCG TABLET NG SCH (06:27)
[2018-02-22 07:38] LABS: BASOPHILS % 1.1 % (0.0-2.0); EOSINOPHILS % 13.2 % (0.0-5.0); HEMATOCRIT. 22.5 % (36.0-48.0); HEMOGLOBIN. 7.8 g/dL (12.0-16.0); MEAN CORPUSCULAR HEMOGLOBIN 33.4 pg (28.0-32.0); MEAN CORPUSCULAR VOLUME 96.1 fL (81.0-99.0); MEAN PLATELET VOLUME 7.9 fl (7.4-10.4); MONOCYTES % 14.4 % (2.0-8.0); NEUTROPHILS % 44.3 % (40.0-76.0); PLATELET 131 x1000/uL (130-400); RED BLOOD CELL COUNT 2.34 mill/uL (4.2-5.4); RED CELL DISTRIBUTION WIDTH 18.1 % (11.6-14.6)
[2018-02-22] MEDS: AMLODIPINE 10MG TABLET NG SCH (09:11)
[2018-02-22] MEDS: CARVEDILOL 12.5MG TABLET NG SCH (09:11)
[2018-02-22] MEDS ORDERED: LIDOCAINE HCL 1% 10 MG/ML 10ML VIAL ONE (11:30)
[2018-02-22] MEDS ORDERED: SODIUM BICARBONATE 4% (2.4MEQ) 5ML VIAL IV ONE (11:30)
[2018-02-22] MEDS: LORAZEPAM 1MG TABLET PO PRN (13:50)
[2018-02-22 13:52] VITALS: BP 143/97
[2018-02-22 16:00] VITALS: BP 143/95
[2018-02-22 16:27] VITALS: BP 143/95
[2018-02-22] MEDS ORDERED: EPOETIN ALFA 10000UNITS/ML VIAL SUBCUT SCH (21:00)
== END 2018-02-22 17:25 | disposition home or self-care (01) | DRG 432 ==
LOC: ER 05:40 → 5EST 11:11 → ENRESERV 12:50 → 8WST 02-21 07:23
PROVIDERS: ADMIT Internal Medicine; ATTEND Internal Medicine
PROC: 5A1D70Z Performance of Urinary Filtration, Intermittent, Less than 6 Hours Per Day (ICD-10-PCS; 2018-02-18)
PROC: 5A1D70Z Performance of Urinary Filtration, Intermittent, Less than 6 Hours Per Day (ICD-10-PCS; 2018-02-20)
PROC: 0W9G3ZZ Drainage of Peritoneal Cavity, Percutaneous Approach (ICD-10-PCS; principal; 2018-02-22)
DX: K74.60 Unspecified cirrhosis of liver (principal); N18.6 End stage renal disease; E87.2 Acidosis; I13.2 Hypertensive heart and chronic kidney disease with heart failure and with stage 5 chronic kidney disease, or end stage renal disease; R18.8 Other ascites; I50.40 Unspecified combined systolic (congestive) and diastolic (congestive) heart failure; G40.909 Epilepsy, unspecified, not intractable, without status epilepticus; E11.22 Type 2 diabetes mellitus with diabetic chronic kidney disease; D64.9 Anemia, unspecified; K70.40 Alcoholic hepatic failure without coma; E03.9 Hypothyroidism, unspecified; F10.10 Alcohol abuse, uncomplicated; F14.10 Cocaine abuse, uncomplicated; F41.1 Generalized anxiety disorder; Z82.49 Family history of ischemic heart disease and other diseases of the circulatory system; Z83.3 Family history of diabetes mellitus; Z91.15 Patient's noncompliance with renal dialysis; Z99.2 Dependence on renal dialysis; Z91.018 Allergy to other foods; Z79.899 Other long term (current) drug therapy
CPT/HCPCS: 36415; 36600; 49083; 70450; 71045; 74176; 80048; 80051; 80053; 80185; 80202; 82140; 82375; 82805; 82962; 84484; 84703; 85025; 85610; 85730; 87040; 87077; 87186; 93005; 93970; 96365; 96375; 99291; C1893; C9113; G0482; J1165; J1200; J2060; J2405; J3370; J3490; J7030; J7040; J7050; J7060; Q0163; A4315

== ENCOUNTER 2018-03-03 14:03 | Inpatient (IN) | payer MEDICARE, MEDICAID ==
[~2018-03-03] VITALS: Ht 170.2 cm; Wt 59.0 kg
[2018-03-03] MEDS ORDERED: DIPHENHYDRAMINE 50MG/ML VIAL IV ONE (14:15)
[2018-03-03 14:45] LABS: BASOPHILS % 1.3 % (0.0-2.0); LYMPHOCYTES % 11.2 % (20.0-50.0); MEAN CORPUSCULAR VOLUME 95.8 fL (81.0-99.0); MEAN PLATELET VOLUME 7.5 fl (7.4-10.4); MONOCYTES % 12.4 % (2.0-8.0); NEUTROPHILS % 73.1 % (40.0-76.0); PLATELET 242 x1000/uL (130-400); RED BLOOD CELL COUNT 1.85 mill/uL (4.2-5.4); RED CELL DISTRIBUTION WIDTH 17.3 % (11.6-14.6)
[2018-03-03 14:52] LABS: CHLORIDE 93 mEq/L (98-107); HEMATOCRIT. 17.7 % (36.0-48.0); HEMOGLOBIN. 6.1 g/dL (12.0-16.0)
[2018-03-03 14:54] LABS: INR 1.2; PROTHROMBIN TIME 11.6 sec (9.1-11.1)
[2018-03-03] MEDS ORDERED: MORPHINE SULFATE 4 MG/ML CPJ (NOT FOR IM USE) IV ONE (15:30)
[2018-03-03] MEDS ORDERED: ONDANSETRON HCL 4MG/2ML INJ IV ONE (17:15)
[2018-03-03] MEDS ORDERED: CLONIDINE 0.1MG TABLET PO PRN (17:45)
[2018-03-03] MEDS ORDERED: ONDANSETRON HCL 4MG/2ML INJ IV PRN (17:45)
[2018-03-03] MEDS: DIPHENHYDRAMINE 50MG/ML VIAL IV PRN ×2 (21:24→23:13)
[2018-03-03] MEDS: MORPHINE SULFATE 4 MG/ML CPJ (NOT FOR IM USE) IV PRN (21:24)
[2018-03-03 22:15] VITALS: BP_SYST 120; BP_SYST 121; BP_DIAS 65; BP_DIAS 81
[2018-03-03 23:15] VITALS: BP 124/69
[2018-03-04] VITALS: BP 121/80
[2018-03-04] MEDS: LORAZEPAM 1MG TABLET PO PRN ×2 (00:15→08:35)
[2018-03-04] MEDS: MORPHINE SULFATE 4 MG/ML CPJ (NOT FOR IM USE) IV PRN ×5 (01:30→22:54)
[2018-03-04 04:35] VITALS: BP 148/98
[2018-03-04] MEDS: PANTOPRAZOLE 40MG DR TABLET PO SCH (06:14)
[2018-03-04] MEDS: DIPHENHYDRAMINE 50MG/ML VIAL IV PRN ×3 (06:14→20:59)
[2018-03-04 06:24] LABS: HEMATOCRIT. 21.7 % (36.0-48.0); HEMOGLOBIN. 7.4 g/dL (12.0-16.0); MEAN CORPUSCULAR HEMOGLOBIN 32.7 pg (28.0-32.0); MEAN CORPUSCULAR VOLUME 96.3 fL (81.0-99.0); MEAN PLATELET VOLUME 8.3 fl (7.4-10.4); PLATELET 297 x1000/uL (130-400); RED BLOOD CELL COUNT 2.26 mill/uL (4.2-5.4); RED CELL DISTRIBUTION WIDTH 17.6 % (11.6-14.6)
[2018-03-04 07:30] VITALS: BP 169/101
[2018-03-04] MEDS: CARVEDILOL 12.5MG TABLET PO SCH ×2 (08:32→20:59)
[2018-03-04] MEDS: FLUOXETINE HCL 20MG CAPSULE PO SCH (08:32)
[2018-03-04] MEDS: PHENYTOIN SODIUM EXTENDED 100MG CAPSULE PO SCH ×3 (08:32→16:30)
[2018-03-04] MEDS: AMLODIPINE 5MG TABLET PO SCH ×3 (09:00→20:59)
[2018-03-04 10:38] LABS: PLATELET ESTIMATE NORMAL
[2018-03-04 12:00] VITALS: BP 143/98
[2018-03-04] MEDS ORDERED: HYDROCODONE/ACETAMINOPHEN 5/325MG TABLET PO PRN (12:00)
[2018-03-04 16:47] VITALS: BP 125/78
[2018-03-04 20:00] VITALS: BP 169/108
[2018-03-05] VITALS: BP 125/83
[2018-03-05] MEDS: LORAZEPAM 1MG TABLET PO PRN (01:25)
[2018-03-05] MEDS: PANTOPRAZOLE 40MG DR TABLET PO SCH (06:22)
[2018-03-05 06:57] LABS: HEMATOCRIT. 21.2 % (36.0-48.0); HEMOGLOBIN. 7.2 g/dL (12.0-16.0); MEAN CORPUSCULAR HEMOGLOBIN 32.6 pg (28.0-32.0); MEAN CORPUSCULAR VOLUME 96.2 fL (81.0-99.0); MEAN PLATELET VOLUME 8.1 fl (7.4-10.4); PLATELET 195 x1000/uL (130-400); RED CELL DISTRIBUTION WIDTH 17.4 % (11.6-14.6)
[2018-03-05 07:30] VITALS: BP 116/73
[2018-03-05] MEDS: CARVEDILOL 12.5MG TABLET PO SCH (08:45)
[2018-03-05] MEDS: AMLODIPINE 5MG TABLET PO SCH (08:45)
[2018-03-05] MEDS: FLUOXETINE HCL 20MG CAPSULE PO SCH (08:45)
[2018-03-05] MEDS: PHENYTOIN SODIUM EXTENDED 100MG CAPSULE PO SCH (08:45)
[2018-03-05] MEDS: MORPHINE SULFATE 4 MG/ML CPJ (NOT FOR IM USE) IV PRN (08:46)
[2018-03-05] MEDS: DIPHENHYDRAMINE 50MG/ML VIAL IV PRN (10:26)
[2018-03-05 10:27] LABS: PLATELET ESTIMATE NORMAL
[2018-03-05 11:50] VITALS: BP 102/67
[2018-03-05 14:00] VITALS: BP 102/67
[2018-03-05] MEDS ORDERED: EPOETIN ALFA 10000UNITS/ML VIAL SUBCUT SCH (21:00)
== END 2018-03-05 15:38 | disposition home or self-care (01) | DRG 291 ==
LOC: ER 14:03 → EDBEDREQ 15:04 → 8WST 17:09 → EDBEDREQ 17:12 → EDBEDREQTM 17:12 → ENRESERV 20:05
PROVIDERS: ADMIT Internal Medicine; ATTEND Internal Medicine
PROC: 30233N1 Transfusion of Nonautologous Red Blood Cells into Peripheral Vein, Percutaneous Approach (ICD-10-PCS; principal; 2018-03-03)
PROC: 5A1D70Z Performance of Urinary Filtration, Intermittent, Less than 6 Hours Per Day (ICD-10-PCS; 2018-03-04)
PROC: 5A1D70Z Performance of Urinary Filtration, Intermittent, Less than 6 Hours Per Day (ICD-10-PCS; 2018-03-05)
DX: I13.2 Hypertensive heart and chronic kidney disease with heart failure and with stage 5 chronic kidney disease, or end stage renal disease (principal); N18.6 End stage renal disease; I50.23 Acute on chronic systolic (congestive) heart failure; E44.1 Mild protein-calorie malnutrition; R18.8 Other ascites; E87.1 Hypo-osmolality and hyponatremia; E87.5 Hyperkalemia; I42.9 Cardiomyopathy, unspecified; K74.60 Unspecified cirrhosis of liver; G40.909 Epilepsy, unspecified, not intractable, without status epilepticus; D53.9 Nutritional anemia, unspecified; F10.20 Alcohol dependence, uncomplicated; E11.22 Type 2 diabetes mellitus with diabetic chronic kidney disease; I27.20 Pulmonary hypertension, unspecified; E03.9 Hypothyroidism, unspecified; Z91.19 Patient's noncompliance with other medical treatment and regimen; Z99.2 Dependence on renal dialysis; Z91.018 Allergy to other foods; Z91.010 Allergy to peanuts; Z68.20 Body mass index [BMI] 20.0-20.9, adult
CPT/HCPCS: 36415; 71045; 80048; 80053; 84484; 85025; 85610; 86850; 86900; 86920; 93005; 96374; 96375; 99291; C1893; J1200; J2270; J2405; J7030; J7050; P9016

== ENCOUNTER 2018-03-16 13:12 | Inpatient (IN) | payer MEDICARE, MEDICAID ==
[~2018-03-16] VITALS: Ht 170.2 cm; Wt 61.7 kg
[2018-03-16 18:23] LABS: BASOPHILS % 1.2 % (0.0-2.0); EOSINOPHILS % 8.7 % (0.0-5.0); HEMATOCRIT. 23.9 % (36.0-48.0); LYMPHOCYTES % 28.1 % (20.0-50.0); MEAN CORPUSCULAR HEMOGLOBIN 32.8 pg (28.0-32.0); MEAN PLATELET VOLUME 8.1 fl (7.4-10.4); MONOCYTES % 8.3 % (2.0-8.0); NEUTROPHILS % 53.7 % (40.0-76.0); PLATELET 175 x1000/uL (130-400); RED BLOOD CELL COUNT 2.43 mill/uL (4.2-5.4); RED CELL DISTRIBUTION WIDTH 17.4 % (11.6-14.6)
[2018-03-16 18:28] LABS: CHLORIDE 98 mEq/L (98-107)
[2018-03-16 18:32] LABS: INR 1.1; PARTIAL THROMBOPLASTIN TIME 29.3 sec (23.4-31.0); PROTHROMBIN TIME 11.4 sec (9.1-11.1)
[2018-03-16 18:36] LABS: PHOSPHORUS 3.9 mg/dL (2.5-4.9)
[2018-03-16] MEDS ORDERED: DIPHENHYDRAMINE 25MG CAPSULE PO ONE (18:45)
[2018-03-16] MEDS ORDERED: IBUPROFEN 600MG TABLET PO ONE (18:45)
[2018-03-16] MEDS ORDERED: ONDANSETRON 4MG ODT PO ONE (20:15)
[2018-03-16] MEDS ORDERED: PHENYTOIN SODIUM EXTENDED 100MG CAPSULE PO ONE (20:15)
[2018-03-16] MEDS ORDERED: MORPHINE SULFATE 2 MG/ML CPJ (NOT FOR IM USE) IV ONE (23:30)
[2018-03-17] MEDS ORDERED: LORA-250 MT (09:04)
[2018-03-17] MEDS ORDERED: DIPHENHYDRAMINE 50MG/ML VIAL IV NR (09:15)
[2018-03-17] MEDS: MORPHINE SULFATE 4 MG/ML CPJ (NOT FOR IM USE) IV PRN ×2 (10:08→16:44)
[2018-03-17] MEDS: LOSARTAN POTASSIUM 50 MG TABLET PO SCH (11:00)
[2018-03-17] MEDS: CARVEDILOL 12.5MG TABLET PO SCH ×2 (11:21→21:46)
[2018-03-17] MEDS: PHENYTOIN SODIUM EXTENDED 100MG CAPSULE PO SCH ×2 (13:22→16:38)
[2018-03-17] MEDS: ALPRAZOLAM 0.5 MG TABLET PO PRN ×2 (13:22→21:46)
[2018-03-17] MEDS: FLUOXETINE HCL 20MG CAPSULE PO SCH (15:52)
[2018-03-17 16:00] VITALS: BP 180/111
[2018-03-17 16:18] VITALS: BP 186/86
[2018-03-17 20:00] VITALS: BP 168/98
[2018-03-18] VITALS: BP 172/100
[2018-03-18] MEDS: MORPHINE SULFATE 4 MG/ML CPJ (NOT FOR IM USE) IV PRN ×2 (02:09→11:55)
[2018-03-18 04:00] VITALS: BP 170/99
[2018-03-18] MEDS: LEVOTHYROXINE SODIUM 50MCG TABLET PO SCH (06:12)
[2018-03-18] MEDS: PANTOPRAZOLE 40MG DR TABLET PO SCH (06:12)
[2018-03-18] MEDS: ALPRAZOLAM 0.5 MG TABLET PO PRN ×3 (06:12→23:59)
[2018-03-18] MEDS: CLONIDINE 0.1MG TABLET PO PRN (06:12)
[2018-03-18] MEDS: DIPHENHYDRAMINE 50MG/ML VIAL IV PRN ×2 (06:13→18:56)
[2018-03-18 06:55] LABS: BASOPHILS % 1.4 % (0.0-2.0); EOSINOPHILS % 7.7 % (0.0-5.0); HEMATOCRIT. 22.3 % (36.0-48.0); HEMOGLOBIN. 7.7 g/dL (12.0-16.0); LYMPHOCYTES % 18.1 % (20.0-50.0); MEAN CORPUSCULAR HEMOGLOBIN 33.8 pg (28.0-32.0); MEAN CORPUSCULAR VOLUME 97.2 fL (81.0-99.0); MEAN PLATELET VOLUME 7.8 fl (7.4-10.4); MONOCYTES % 13.2 % (2.0-8.0); NEUTROPHILS % 59.6 % (40.0-76.0); PLATELET 119 x1000/uL (130-400); RED BLOOD CELL COUNT 2.29 mill/uL (4.2-5.4); RED CELL DISTRIBUTION WIDTH 17.3 % (11.6-14.6)
[2018-03-18 08:00] VITALS: BP 145/92
[2018-03-18] MEDS: LOSARTAN POTASSIUM 50 MG TABLET PO SCH (09:00)
[2018-03-18] MEDS: FLUOXETINE HCL 20MG CAPSULE PO SCH (11:41)
[2018-03-18] MEDS: CARVEDILOL 12.5MG TABLET PO SCH ×2 (11:41→20:47)
[2018-03-18] MEDS: PHENYTOIN SODIUM EXTENDED 100MG CAPSULE PO SCH ×3 (11:41→18:56)
[2018-03-18] MEDS ORDERED: LIDOCAINE HCL/PF 1% 10 MG/ML 5ML VIAL IJ NR (12:20)
[2018-03-18 14:00] VITALS: BP 152/97
[2018-03-18] MEDS ORDERED: VANCOMYCIN 1250MG in DEXTROSE 5% WATER 250ML IV SCH (18:00)
[2018-03-18 20:00] VITALS: BP 176/105
[2018-03-18] MEDS: EPOETIN ALFA 10000UNITS/ML VIAL SUBCUT SCH (20:48)
[2018-03-18 21:00] VITALS: BP 152/103
[2018-03-18] MEDS: ZOLPIDEM TARTRATE 5MG TABLET PO PRN (21:06)
[2018-03-19] VITALS: BP 157/101
[2018-03-19 04:28] VITALS: BP 122/85
[2018-03-19] MEDS: LEVOTHYROXINE SODIUM 50MCG TABLET PO SCH (06:48)
[2018-03-19] MEDS: PANTOPRAZOLE 40MG DR TABLET PO SCH (06:48)
[2018-03-19] MEDS: DIPHENHYDRAMINE 50MG/ML VIAL IV PRN (06:59)
[2018-03-19 08:05] LABS: BASOPHILS % 1.3 % (0.0-2.0); EOSINOPHILS % 10.3 % (0.0-5.0); HEMATOCRIT. 22.9 % (36.0-48.0); HEMOGLOBIN. 7.7 g/dL (12.0-16.0); LYMPHOCYTES % 27.1 % (20.0-50.0); MEAN CORPUSCULAR HEMOGLOBIN 33.4 pg (28.0-32.0); MEAN CORPUSCULAR VOLUME 99.1 fL (81.0-99.0); MEAN PLATELET VOLUME 8.3 fl (7.4-10.4); MONOCYTES % 11.9 % (2.0-8.0); NEUTROPHILS % 49.4 % (40.0-76.0); PLATELET 121 x1000/uL (130-400); RED BLOOD CELL COUNT 2.31 mill/uL (4.2-5.4); RED CELL DISTRIBUTION WIDTH 17.4 % (11.6-14.6)
[2018-03-19 09:00] VITALS: BP 160/97
[2018-03-19] MEDS: CARVEDILOL 12.5MG TABLET PO SCH ×2 (09:00→20:05)
[2018-03-19] MEDS: ALPRAZOLAM 0.5 MG TABLET PO PRN ×2 (09:32→17:44)
[2018-03-19] MEDS: MORPHINE SULFATE 4 MG/ML CPJ (NOT FOR IM USE) IV PRN (09:32)
[2018-03-19] MEDS: PHENYTOIN SODIUM EXTENDED 100MG CAPSULE PO SCH ×3 (12:46→17:51)
[2018-03-19] MEDS: LOSARTAN POTASSIUM 50 MG TABLET PO SCH (12:46)
[2018-03-19] MEDS: FLUOXETINE HCL 20MG CAPSULE PO SCH (12:47)
[2018-03-19] MEDS: SODIUM HYPOCHLORITE 0.125% 473ML SOLUTION TOP SCH ×2 (15:30→22:20)
[2018-03-19 16:00] VITALS: BP 155/95
[2018-03-19 20:00] VITALS: BP 160/95
[2018-03-19] MEDS ORDERED: MEROPENEM 1000MG in NORMAL SALINE 100ML IV NR (20:00)
[2018-03-19] MEDS: HYDROCODONE/ACETAMINOPHEN 10/325MG TABLET PO PRN (20:05)
[2018-03-19] MEDS: DIPHENHYDRAMINE 50MG CAPSULE PO PRN (20:05)
[2018-03-19] MEDS: ZOLPIDEM TARTRATE 5MG TABLET PO PRN (22:20)
[2018-03-20] VITALS (10 sets, daily range): BP systolic 133–169; BP diastolic 84–107
[2018-03-20] MEDS: ALPRAZOLAM 0.5 MG TABLET PO PRN ×3 (02:01→22:00)
[2018-03-20] MEDS: LEVOTHYROXINE SODIUM 50MCG TABLET PO SCH (06:54)
[2018-03-20 07:58] LABS: BASOPHILS % 1.4 % (0.0-2.0); EOSINOPHILS % 10.2 % (0.0-5.0); MEAN CORPUSCULAR HEMOGLOBIN 33.5 pg (28.0-32.0); MEAN CORPUSCULAR VOLUME 98.5 fL (81.0-99.0); MONOCYTES % 14.7 % (2.0-8.0); NEUTROPHILS % 47.7 % (40.0-76.0); PLATELET 125 x1000/uL (130-400); RED BLOOD CELL COUNT 2.05 mill/uL (4.2-5.4); RED CELL DISTRIBUTION WIDTH 17.9 % (11.6-14.6)
[2018-03-20 08:51] LABS: HEMATOCRIT. 20.2 % (36.0-48.0); HEMOGLOBIN. 6.9 g/dL (12.0-16.0)
[2018-03-20] MEDS: LOSARTAN POTASSIUM 50 MG TABLET PO SCH (09:00)
[2018-03-20] MEDS: SODIUM HYPOCHLORITE 0.125% 473ML SOLUTION TOP SCH ×2 (09:00→22:00)
[2018-03-20] MEDS: MEROPENEM 500 MG in SODIUM CHLORIDE 0.9% 50 ML IV SCH ×3 (09:00→21:18)
[2018-03-20] MEDS: CARVEDILOL 12.5MG TABLET PO SCH ×2 (09:02→20:06)
[2018-03-20] MEDS: PHENYTOIN SODIUM EXTENDED 100MG CAPSULE PO SCH ×3 (09:02→17:00)
[2018-03-20] MEDS: FLUOXETINE HCL 20MG CAPSULE PO SCH (09:02)
[2018-03-20] MEDS: FAMOTIDINE 20MG TABLET PO SCH (09:03)
[2018-03-20] MEDS ORDERED: SODIUM BICARBONATE 4% (2.4MEQ) 5ML VIAL IV ONE (09:57)
[2018-03-20] MEDS ORDERED: LIDOCAINE HCL 1% 20ML VIAL (Pyxis) INJ ONE (09:59)
[2018-03-20] MEDS ORDERED: VANCOMYCIN 750 MG PREMIX 150 ML IV SCH ×2 (14:00→23:00)
[2018-03-20] MEDS ORDERED: DIPHENHYDRAMINE 50MG/ML VIAL IV PRN (20:00)
[2018-03-20] MEDS: EPOETIN ALFA 10000UNITS/ML VIAL SUBCUT SCH (21:00)
[2018-03-20] MEDS: ZOLPIDEM TARTRATE 5MG TABLET PO PRN (23:05)
[2018-03-21 04:00] VITALS: BP 162/99
[2018-03-21] MEDS: CLONIDINE 0.1MG TABLET PO PRN (05:23)
[2018-03-21] MEDS: LEVOTHYROXINE SODIUM 50MCG TABLET PO SCH (06:35)
[2018-03-21] MEDS: ALPRAZOLAM 0.5 MG TABLET PO PRN (06:38)
[2018-03-21 07:15] LABS: HEMATOCRIT. 25.9 % (36.0-48.0); HEMOGLOBIN. 8.6 g/dL (12.0-16.0); MEAN CORPUSCULAR HEMOGLOBIN 32.2 pg (28.0-32.0); MEAN CORPUSCULAR VOLUME 96.5 fL (81.0-99.0); MEAN PLATELET VOLUME 7.9 fl (7.4-10.4); PLATELET 156 x1000/uL (130-400); RED BLOOD CELL COUNT 2.68 mill/uL (4.2-5.4); RED CELL DISTRIBUTION WIDTH 18.6 % (11.6-14.6)
[2018-03-21] MEDS ORDERED: LEVOFLOXACIN 250MG TABLET PO SCH (09:00)
[2018-03-21] MEDS: CARVEDILOL 12.5MG TABLET PO SCH (09:58)
[2018-03-21] MEDS: FAMOTIDINE 20MG TABLET PO SCH (09:59)
[2018-03-21] MEDS: FLUOXETINE HCL 20MG CAPSULE PO SCH (09:59)
[2018-03-21] MEDS: PHENYTOIN SODIUM EXTENDED 100MG CAPSULE PO SCH ×2 (09:59→13:21)
[2018-03-21] MEDS: LOSARTAN POTASSIUM 50 MG TABLET PO SCH (09:59)
[2018-03-21] MEDS: SODIUM HYPOCHLORITE 0.125% 473ML SOLUTION TOP SCH (10:01)
[2018-03-21] MEDS: DIPHENHYDRAMINE 50MG CAPSULE PO PRN (11:09)
[2018-03-21 11:12] LABS: PLATELET ESTIMATE NORMAL
[2018-03-21 12:00] VITALS: BP 161/104
[2018-03-21] MEDS: HYDROCODONE/ACETAMINOPHEN 10/325MG TABLET PO PRN (13:28)
[2018-03-21] MEDS ORDERED: HYDRALAZINE HCL 50MG TABLET PO SCH (14:00)
[2018-03-21 14:28] VITALS: BP 161/104
[2018-03-22] MEDS ORDERED: GENTAMICIN 120MG PREMIX 100 ML IV NR (12:00)
== END 2018-03-21 15:00 | disposition home or self-care (01) | DRG 579 ==
LOC: ER 13:12 → 6WST 20:33 → EDBEDREQ 03-17 06:22 → ENRESERV 03-17 07:43
PROVIDERS: ADMIT Internal Medicine; ATTEND Internal Medicine
PROC: 5A1D70Z Performance of Urinary Filtration, Intermittent, Less than 6 Hours Per Day (ICD-10-PCS; 2018-03-17)
PROC: 0JBK0ZZ Excision of Left Hand Subcutaneous Tissue and Fascia, Open Approach (ICD-10-PCS; principal; 2018-03-18)
PROC: 5A1D70Z Performance of Urinary Filtration, Intermittent, Less than 6 Hours Per Day (ICD-10-PCS; 2018-03-19)
PROC: 0W9G3ZZ Drainage of Peritoneal Cavity, Percutaneous Approach (ICD-10-PCS; 2018-03-20)
PROC: 30233N1 Transfusion of Nonautologous Red Blood Cells into Peripheral Vein, Percutaneous Approach (ICD-10-PCS; 2018-03-20)
DX: L98.499 Non-pressure chronic ulcer of skin of other sites with unspecified severity (principal); I50.23 Acute on chronic systolic (congestive) heart failure; N18.6 End stage renal disease; I13.2 Hypertensive heart and chronic kidney disease with heart failure and with stage 5 chronic kidney disease, or end stage renal disease; L03.114 Cellulitis of left upper limb; E87.1 Hypo-osmolality and hyponatremia; R18.8 Other ascites; I42.9 Cardiomyopathy, unspecified; K74.60 Unspecified cirrhosis of liver; E03.9 Hypothyroidism, unspecified; F20.9 Schizophrenia, unspecified; D63.1 Anemia in chronic kidney disease; F14.90 Cocaine use, unspecified, uncomplicated; S61.402A Unspecified open wound of left hand, initial encounter; F19.10 Other psychoactive substance abuse, uncomplicated; G40.909 Epilepsy, unspecified, not intractable, without status epilepticus; I27.20 Pulmonary hypertension, unspecified; I80.8 Phlebitis and thrombophlebitis of other sites; X58.XXXA Exposure to other specified factors, initial encounter; Y93.89 Activity, other specified; Y92.89 Other specified places as the place of occurrence of the external cause; Y99.8 Other external cause status; Z99.2 Dependence on renal dialysis; Z91.018 Allergy to other foods; Z79.899 Other long term (current) drug therapy
CPT/HCPCS: 36415; 49083; 71045; 73130; 76705; 80048; 80185; 80202; 83735; 84100; 84484; 86850; 86900; 86920; 87070; 87075; 87077; 87186; 93005; 99285; J0885; J1200; J1580; J2185; J2270; J3370; J3490; J7030; J7050; J7060; P9016; Q0162; Q0163

== ENCOUNTER 2018-03-30 15:42 | Inpatient (IN) | payer MEDICARE, MEDICAID ==
[~2018-03-30] VITALS: Ht 170.2 cm; Wt 54.0 kg
[~2018-03-30 15:42] MED LIST changes: +LORA-250 MT
[2018-03-30 18:47] LABS: BASOPHILS % 2.6 % (0.0-2.0); EOSINOPHILS % 10.8 % (0.0-5.0); HEMATOCRIT. 22.9 % (36.0-48.0); HEMOGLOBIN. 7.7 g/dL (12.0-16.0); LYMPHOCYTES % 32.2 % (20.0-50.0); MEAN CORPUSCULAR HEMOGLOBIN 32.4 pg (28.0-32.0); MEAN CORPUSCULAR VOLUME 95.6 fL (81.0-99.0); MEAN PLATELET VOLUME 8.3 fl (7.4-10.4); MONOCYTES % 12.7 % (2.0-8.0); NEUTROPHILS % 41.7 % (40.0-76.0); PLATELET 132 x1000/uL (130-400); RED BLOOD CELL COUNT 2.39 mill/uL (4.2-5.4); RED CELL DISTRIBUTION WIDTH 17.8 % (11.6-14.6)
[2018-03-30 18:53] LABS: CHLORIDE 100 mEq/L (98-107)
[2018-03-30] MEDS ORDERED: SODIUM CHLORIDE 0.9% 500 ML IV ONE (19:00)
[2018-03-30] MEDS ORDERED: DIPHENHYDRAMINE 50MG/ML VIAL IV ONE (19:00)
[2018-03-30] MEDS ORDERED: MORPHINE SULFATE 4 MG/ML CPJ (NOT FOR IM USE) IV ONE (19:00)
[2018-03-30] MEDS ORDERED: METOCLOPRAMIDE HCL 10MG/2ML VIAL IV ONE (19:00)
[2018-03-30 23:30] VITALS: BP 181/112
[2018-03-30] MEDS ORDERED: ACETAMINOPHEN 325MG TABLET PO PRN (23:30)
[2018-03-30] MEDS ORDERED: ONDANSETRON HCL 4MG/2ML INJ IV PRN (23:30)
[2018-03-31] VITALS (11 sets, daily range): BP systolic 110–181; BP diastolic 74–116
[2018-03-31] MEDS: TEMAZEPAM 15MG CAPSULE PO PRN ×2 (00:39→23:42)
[2018-03-31] MEDS: CLONIDINE 0.1MG TABLET PO PRN ×5 (00:39→23:52)
[2018-03-31] MEDS: LORAZEPAM 0.5MG TABLET PO PRN ×3 (00:39→18:25)
[2018-03-31] MEDS: PHENYTOIN SODIUM EXTENDED 100MG CAPSULE PO SCH ×3 (05:45→21:46)
[2018-03-31] MEDS: AMLODIPINE 10MG TABLET PO SCH (05:45)
[2018-03-31] MEDS: SODIUM CHLORIDE 0.9% INJ 3ML FLUSH IVF SCH ×3 (05:45→23:44)
[2018-03-31] MEDS: DIPHENHYDRAMINE 50MG CAPSULE PO PRN ×2 (05:46→13:06)
[2018-03-31] MEDS: LEVOTHYROXINE SODIUM 50MCG TABLET PO SCH (06:50)
[2018-03-31] MEDS: SEVELAMER CARBONATE 800 MG TABLET PO SCH ×3 (08:32→17:57)
[2018-03-31] MEDS: CARVEDILOL 12.5MG TABLET PO SCH ×2 (08:34→21:46)
[2018-03-31] MEDS: FOLIC ACID/VITAMIN B COMP W-C TABLET PO SCH (08:34)
[2018-03-31 08:55] LABS: BASOPHILS % 2.3 % (0.0-2.0); EOSINOPHILS % 9.2 % (0.0-5.0); HEMATOCRIT. 21.1 % (36.0-48.0); HEMOGLOBIN. 7.1 g/dL (12.0-16.0); LYMPHOCYTES % 32.1 % (20.0-50.0); MEAN CORPUSCULAR HEMOGLOBIN 32.3 pg (28.0-32.0); MEAN CORPUSCULAR VOLUME 96.3 fL (81.0-99.0); MEAN PLATELET VOLUME 8.5 fl (7.4-10.4); MONOCYTES % 13.1 % (2.0-8.0); NEUTROPHILS % 43.3 % (40.0-76.0); PLATELET 124 x1000/uL (130-400); RED BLOOD CELL COUNT 2.19 mill/uL (4.2-5.4); RED CELL DISTRIBUTION WIDTH 17.8 % (11.6-14.6)
[2018-03-31] MEDS ORDERED: DIPHENHYDRAMINE 50MG/ML VIAL IV SCH (10:30)
[2018-04-01 04:00] VITALS: BP 171/111
[2018-04-01] MEDS: PHENYTOIN SODIUM EXTENDED 100MG CAPSULE PO SCH ×3 (05:10→21:05)
[2018-04-01] MEDS: SODIUM CHLORIDE 0.9% INJ 3ML FLUSH IVF SCH ×3 (05:10→21:06)
[2018-04-01] MEDS: CLONIDINE 0.1MG TABLET PO PRN ×2 (05:10→20:20)
[2018-04-01] MEDS: LORAZEPAM 0.5MG TABLET PO PRN ×2 (05:45→15:41)
[2018-04-01] MEDS: LEVOTHYROXINE SODIUM 50MCG TABLET PO SCH (06:22)
[2018-04-01] MEDS: CARVEDILOL 12.5MG TABLET PO SCH ×2 (09:11→20:20)
[2018-04-01] MEDS: FOLIC ACID/VITAMIN B COMP W-C TABLET PO SCH (09:11)
[2018-04-01] MEDS: SEVELAMER CARBONATE 800 MG TABLET PO SCH ×3 (09:11→18:00)
[2018-04-01] MEDS: AMLODIPINE 10MG TABLET PO SCH (09:11)
[2018-04-01] MEDS: DIPHENHYDRAMINE 50MG CAPSULE PO PRN ×2 (11:12→18:55)
[2018-04-01 12:03] LABS: BASOPHILS % 2.2 % (0.0-2.0); EOSINOPHILS % 7.6 % (0.0-5.0); HEMATOCRIT. 25.1 % (36.0-48.0); HEMOGLOBIN. 8.5 g/dL (12.0-16.0); LYMPHOCYTES % 26.6 % (20.0-50.0); MEAN CORPUSCULAR HEMOGLOBIN 31.8 pg (28.0-32.0); MEAN CORPUSCULAR VOLUME 93.9 fL (81.0-99.0); MEAN PLATELET VOLUME 8.5 fl (7.4-10.4); MONOCYTES % 10.9 % (2.0-8.0); NEUTROPHILS % 52.7 % (40.0-76.0); PLATELET 111 x1000/uL (130-400); RED BLOOD CELL COUNT 2.68 mill/uL (4.2-5.4); RED CELL DISTRIBUTION WIDTH 19.6 % (11.6-14.6)
[2018-04-01 12:49] VITALS: BP 152/96
[2018-04-01 16:57] VITALS: BP 158/99
[2018-04-01 20:00] VITALS: BP 163/108
[2018-04-01] MEDS: TEMAZEPAM 15MG CAPSULE PO PRN (21:05)
[2018-04-02] VITALS: BP 167/106
[2018-04-02] MEDS: LORAZEPAM 0.5MG TABLET PO PRN ×2 (00:05→08:23)
[2018-04-02 04:00] VITALS: BP 166/112
[2018-04-02] MEDS: PHENYTOIN SODIUM EXTENDED 100MG CAPSULE PO SCH ×2 (06:27→13:53)
[2018-04-02] MEDS: LEVOTHYROXINE SODIUM 50MCG TABLET PO SCH (06:27)
[2018-04-02] MEDS: CLONIDINE 0.1MG TABLET PO PRN ×2 (06:27→13:53)
[2018-04-02] MEDS: DIPHENHYDRAMINE 50MG CAPSULE PO PRN (06:27)
[2018-04-02] MEDS: SODIUM CHLORIDE 0.9% INJ 3ML FLUSH IVF SCH ×2 (06:28→13:56)
[2018-04-02 07:18] LABS: BASOPHILS % 1.3 % (0.0-2.0); EOSINOPHILS % 7.9 % (0.0-5.0); HEMATOCRIT. 24.7 % (36.0-48.0); HEMOGLOBIN. 8.4 g/dL (12.0-16.0); LYMPHOCYTES % 25.3 % (20.0-50.0); MEAN CORPUSCULAR HEMOGLOBIN 31.9 pg (28.0-32.0); MEAN CORPUSCULAR VOLUME 93.8 fL (81.0-99.0); MEAN PLATELET VOLUME 8.4 fl (7.4-10.4); MONOCYTES % 12.4 % (2.0-8.0); NEUTROPHILS % 53.1 % (40.0-76.0); PLATELET 99 x1000/uL (130-400); RED BLOOD CELL COUNT 2.64 mill/uL (4.2-5.4); RED CELL DISTRIBUTION WIDTH 19.1 % (11.6-14.6)
[2018-04-02 08:00] VITALS: BP 155/103
[2018-04-02] MEDS: FOLIC ACID/VITAMIN B COMP W-C TABLET PO SCH (08:23)
[2018-04-02] MEDS: SEVELAMER CARBONATE 800 MG TABLET PO SCH ×2 (08:23→11:15)
[2018-04-02] MEDS: CARVEDILOL 12.5MG TABLET PO SCH (08:23)
[2018-04-02] MEDS: AMLODIPINE 10MG TABLET PO SCH (08:24)
[2018-04-02] MEDS ORDERED: DIPHENHYDRAMINE 50MG/ML VIAL IV NR (10:15)
[2018-04-02 12:45] VITALS: BP 173/114
[2018-04-02 15:36] VITALS: BP 158/95
[2018-04-02 16:00] VITALS: BP 158/95
== END 2018-04-02 17:00 | disposition home or self-care (01) | DRG 291 ==
LOC: ER 15:42 → 8WST 20:09 → ENRESERV 21:51 → CANRESERV 21:53
PROVIDERS: ADMIT Internal Medicine; ATTEND Internal Medicine
PROC: 5A1D70Z Performance of Urinary Filtration, Intermittent, Less than 6 Hours Per Day (ICD-10-PCS; principal; 2018-03-31)
PROC: 5A1D70Z Performance of Urinary Filtration, Intermittent, Less than 6 Hours Per Day (ICD-10-PCS; 2018-04-02)
PROC: 30233N1 Transfusion of Nonautologous Red Blood Cells into Peripheral Vein, Percutaneous Approach (ICD-10-PCS; 2018-04-02)
DX: I13.2 Hypertensive heart and chronic kidney disease with heart failure and with stage 5 chronic kidney disease, or end stage renal disease (principal); N18.6 End stage renal disease; I50.22 Chronic systolic (congestive) heart failure; R18.8 Other ascites; K76.9 Liver disease, unspecified; D63.8 Anemia in other chronic diseases classified elsewhere; E03.9 Hypothyroidism, unspecified; E11.22 Type 2 diabetes mellitus with diabetic chronic kidney disease; F17.200 Nicotine dependence, unspecified, uncomplicated; F14.10 Cocaine abuse, uncomplicated; F41.1 Generalized anxiety disorder; G40.909 Epilepsy, unspecified, not intractable, without status epilepticus; Z82.49 Family history of ischemic heart disease and other diseases of the circulatory system; Z83.3 Family history of diabetes mellitus; Z91.15 Patient's noncompliance with renal dialysis; Z91.19 Patient's noncompliance with other medical treatment and regimen; Z88.8 Allergy status to other drugs, medicaments and biological substances; Z91.018 Allergy to other foods; Z99.2 Dependence on renal dialysis; Z79.899 Other long term (current) drug therapy; Z98.891 History of uterine scar from previous surgery
CPT/HCPCS: 36415; 36430; 71045; 80048; 82962; 86850; 86900; 86920; 93005; 96361; 96374; 96375; 99285; C1893; J1200; J2270; J2765; J7030; J7040; P9016; Q0163

== ENCOUNTER 2018-05-06 16:09 | Inpatient (IN) | payer MEDICARE, MEDICAID ==
[~2018-05-06] VITALS: Ht 170.2 cm; Wt 57.6 kg
[~2018-05-06 16:09] MED LIST changes: +DIPH25TA62 PO; +PHEN100C4 PO
[2018-05-06 17:23] LABS: BASOPHILS % 1.4 % (0.0-2.0); EOSINOPHILS % 8.2 % (0.0-5.0); HEMATOCRIT. 28.2 % (36.0-48.0); HEMOGLOBIN. 9.6 g/dL (12.0-16.0); LYMPHOCYTES % 19.7 % (20.0-50.0); MEAN CORPUSCULAR HEMOGLOBIN 33.3 pg (28.0-32.0); MEAN CORPUSCULAR VOLUME 97.3 fL (81.0-99.0); MEAN PLATELET VOLUME 8.2 fl (7.4-10.4); MONOCYTES % 7.1 % (2.0-8.0); NEUTROPHILS % 63.6 % (40.0-76.0); PLATELET 187 x1000/uL (130-400)
[2018-05-06 17:28] LABS: INR 1.1; PROTHROMBIN TIME 11.1 sec (9.1-11.1)
[2018-05-06 17:38] LABS: CHLORIDE 100 mEq/L (98-107)
[2018-05-06] MEDS ORDERED: FENTANYL CITRATE/PF 50MCG/ML 2ML VIAL IV ONE ×2 (18:15→22:15)
[2018-05-06] MEDS ORDERED: DIPHENHYDRAMINE 50MG/ML VIAL IV ONE (18:15)
[2018-05-07] VITALS (8 sets, daily range): BP systolic 125–175; BP diastolic 76–127
[2018-05-07] MEDS ORDERED: DIPHENHYDRAMINE 50MG/ML VIAL IV NR (01:45)
[2018-05-07] MEDS ORDERED: MEDICATION NOT ON FORMULARY EA (Lorazepam (Ativan) 1 TAB) MT PRN (02:30)
[2018-05-07] MEDS ORDERED: MEDICATION NOT ON FORMULARY EA (Zolpidem Tartrate (Ambien Pak) 10 MG) PO PRN (02:30)
[2018-05-07] MEDS ORDERED: MEDICATION NOT ON FORMULARY EA (Tramadol Hcl 50 MG) PO PRN (02:30)
[2018-05-07] MEDS ORDERED: ONDANSETRON HCL 4MG/2ML INJ IV PRN (02:30)
[2018-05-07] MEDS ORDERED: [UNRECOGNIZED DRUG - REMARK] PO SCH (02:30)
[2018-05-07] MEDS ORDERED: DIPHENHYDRAMINE 25MG CAPSULE PO PRN (03:00)
[2018-05-07] MEDS ORDERED: ZOLPIDEM TARTRATE 5MG TABLET PO PRN (03:00)
[2018-05-07] MEDS ORDERED: TRAMADOL 50MG TABLET PO PRN (03:00)
[2018-05-07] MEDS ORDERED: LORAZEPAM 1MG TABLET PO PRN (03:00)
[2018-05-07] MEDS ORDERED: CARVEDILOL 12.5MG TABLET PO NR (04:30)
[2018-05-07] MEDS ORDERED: CLONIDINE 0.1MG TABLET PO PRN (06:15)
[2018-05-07] MEDS: PANTOPRAZOLE 40MG DR TABLET PO SCH (06:20)
[2018-05-07] MEDS: PHENYTOIN SODIUM EXTENDED 100MG CAPSULE PO SCH ×3 (06:20→21:25)
[2018-05-07] MEDS: FUROSEMIDE 40MG TABLET PO SCH ×2 (06:20→17:13)
[2018-05-07] MEDS: LORAZEPAM 2MG/ML CPJ IV PRN ×3 (06:20→22:56)
[2018-05-07] MEDS: FLUOXETINE HCL 20MG CAPSULE PO SCH (08:57)
[2018-05-07] MEDS ORDERED: MEDICATION NOT ON FORMULARY EA (Pantoprazole Sodium (Protonix) 40 MG) PO SCH (09:00)
[2018-05-07] MEDS ORDERED: MEDICATION NOT ON FORMULARY EA (Furosemide 40 MG) PO SCH (09:00)
[2018-05-07] MEDS ORDERED: FLUOXETINE HCL 20 MG PO SCH (09:00)
[2018-05-07] MEDS: HYDROCODONE/ACETAMINOPHEN 5/325MG TABLET PO PRN ×2 (09:47→21:24)
[2018-05-07] MEDS: DIPHENHYDRAMINE 50MG/ML VIAL IV PRN ×3 (09:47→22:56)
[2018-05-07] MEDS: CARVEDILOL 12.5MG TABLET PO SCH (21:24)
[2018-05-08] VITALS: BP 139/89
[2018-05-08 04:00] VITALS: BP 133/89
[2018-05-08] MEDS: PHENYTOIN SODIUM EXTENDED 100MG CAPSULE PO SCH ×2 (05:02→14:45)
[2018-05-08] MEDS: DIPHENHYDRAMINE 50MG/ML VIAL IV PRN (05:02)
[2018-05-08 06:24] LABS: BASOPHILS % 1.2 % (0.0-2.0); EOSINOPHILS % 9.2 % (0.0-5.0); HEMATOCRIT. 27.5 % (36.0-48.0); HEMOGLOBIN. 9.3 g/dL (12.0-16.0); LYMPHOCYTES % 30.8 % (20.0-50.0); MEAN CORPUSCULAR HEMOGLOBIN 32.7 pg (28.0-32.0); MEAN CORPUSCULAR VOLUME 96.5 fL (81.0-99.0); MEAN PLATELET VOLUME 8.5 fl (7.4-10.4); MONOCYTES % 14.9 % (2.0-8.0); NEUTROPHILS % 43.9 % (40.0-76.0); PLATELET 153 x1000/uL (130-400); RED BLOOD CELL COUNT 2.85 mill/uL (4.2-5.4); RED CELL DISTRIBUTION WIDTH 16.7 % (11.6-14.6)
[2018-05-08] MEDS: LORAZEPAM 2MG/ML CPJ IV PRN (07:02)
[2018-05-08 08:00] VITALS: BP 143/95
[2018-05-08 12:00] VITALS: BP 135/84
[2018-05-08] MEDS: PANTOPRAZOLE 40MG DR TABLET PO SCH (14:45)
[2018-05-08] MEDS: FUROSEMIDE 40MG TABLET PO SCH (14:45)
[2018-05-08] MEDS: FLUOXETINE HCL 20MG CAPSULE PO SCH (14:45)
[2018-05-08] MEDS: CARVEDILOL 12.5MG TABLET PO SCH (14:46)
[2018-05-08 15:11] VITALS: BP 135/84
[2018-05-09] MEDS ORDERED: FAMOTIDINE 20MG TABLET PO SCH (09:00)
== END 2018-05-08 16:30 | disposition home or self-care (01) | DRG 291 ==
LOC: ER 16:09 → 7WST 17:30 → EDBEDREQTM 17:32 → EDBEDREQ 17:32 → ENRESERV 23:25
PROVIDERS: ADMIT Internal Medicine; ATTEND Internal Medicine
PROC: 5A1D70Z Performance of Urinary Filtration, Intermittent, Less than 6 Hours Per Day (ICD-10-PCS; principal; 2018-05-06)
PROC: 5A1D70Z Performance of Urinary Filtration, Intermittent, Less than 6 Hours Per Day (ICD-10-PCS; 2018-05-07)
DX: I13.2 Hypertensive heart and chronic kidney disease with heart failure and with stage 5 chronic kidney disease, or end stage renal disease (principal); N18.6 End stage renal disease; R18.8 Other ascites; I16.1 Hypertensive emergency; E87.70 Fluid overload, unspecified; G40.909 Epilepsy, unspecified, not intractable, without status epilepticus; E78.5 Hyperlipidemia, unspecified; F14.90 Cocaine use, unspecified, uncomplicated; I27.20 Pulmonary hypertension, unspecified; R74.0 Nonspecific elevation of levels of transaminase and lactic acid dehydrogenase [LDH]; D63.8 Anemia in other chronic diseases classified elsewhere; E03.9 Hypothyroidism, unspecified; I50.9 Heart failure, unspecified; Z79.899 Other long term (current) drug therapy; Z99.2 Dependence on renal dialysis; Z98.891 History of uterine scar from previous surgery; Z91.018 Allergy to other foods; Z91.15 Patient's noncompliance with renal dialysis
CPT/HCPCS: 36415; 71045; 80048; 84484; 93005; 96374; 96375; 96376; 99285; J1200; J2060; J3010

== ENCOUNTER 2018-05-22 01:57 | Inpatient (IN) | payer MEDICARE, MEDICAID ==
[~2018-05-22] VITALS: Ht 170.2 cm; Wt 56.7 kg
[~2018-05-22 01:57] MED LIST changes: -DIPH25TA62 PO; -LORA-250 MT; -PHEN100C4 PO
[2018-05-22] MEDS ORDERED: SODIUM CHLORIDE 0.9% 1,000 ML IV ONE (02:27)
[2018-05-22 03:19] LABS: BASOPHILS % 2.1 % (0.0-2.0); EOSINOPHILS % 4.8 % (0.0-5.0); HEMATOCRIT. 24.4 % (36.0-48.0); HEMOGLOBIN. 8.1 g/dL (12.0-16.0); MEAN CORPUSCULAR VOLUME 99.7 fL (81.0-99.0); MEAN PLATELET VOLUME 8.1 fl (7.4-10.4); MONOCYTES % 8.7 % (2.0-8.0); NEUTROPHILS % 61.4 % (40.0-76.0); PLATELET 166 x1000/uL (130-400); RED BLOOD CELL COUNT 2.44 mill/uL (4.2-5.4); RED CELL DISTRIBUTION WIDTH 16.8 % (11.6-14.6)
[2018-05-22 03:25] LABS: CHLORIDE 97 mEq/L (98-107)
[2018-05-22 03:27] LABS: INR 1.2; PARTIAL THROMBOPLASTIN TIME 33.6 sec (23.4-31.0); PROTHROMBIN TIME 12.1 sec (9.1-11.1)
[2018-05-22] MEDS ORDERED: SODIUM BICARBONATE 8.4% 1 MEQ/ML 50ML SYR IV ONE (04:30)
[2018-05-22] MEDS ORDERED: SODIUM POLYSTYRENE SULFONATE 15 G/60 ML BOT PO ONE (04:30)
[2018-05-22] MEDS ORDERED: ALBUTEROL (0.083%) 2.5MG/3ML NEB HHN ONE (04:30)
[2018-05-22] MEDS ORDERED: MORPHINE SULFATE 2 MG/ML CPJ (NOT FOR IM USE) IV ONE (05:45)
[2018-05-22] MEDS ORDERED: DIPHENHYDRAMINE 50MG/ML VIAL IV ONE (05:45)
[2018-05-22] MEDS ORDERED: MORPHINE SULFATE 10 MG/ML CPJ IV NR (05:47)
[2018-05-22] MEDS ORDERED: NA PHOS,M-B/NA PHOS,DI-BA ENEMA 118ML PR PRN (07:30)
[2018-05-22] MEDS ORDERED: IPRATROPIUM/ALBUTEROL 0.5-3(2.5)MG/3ML NEB INH PRN (07:30)
[2018-05-22] MEDS ORDERED: CLONIDINE 0.1MG TABLET PO PRN (07:30)
[2018-05-22] MEDS ORDERED: ACETAMINOPHEN 325MG TABLET PO PRN (07:30)
[2018-05-22] MEDS ORDERED: MAGNESIUM/ALUMINUM HYDROXIDE/SIMETHICONE 30ML UDC PO PRN (07:30)
[2018-05-22] MEDS ORDERED: HYDROCODONE/ACETAMINOPHEN 5/325MG TABLET PO PRN (07:30)
[2018-05-22] MEDS ORDERED: MORPHINE SULFATE 2 MG/ML CPJ (NOT FOR IM USE) IV PRN (07:30)
[2018-05-22] MEDS ORDERED: DOCUSATE SODIUM 100MG CAPSULE PO PRN (07:30)
[2018-05-22] MEDS ORDERED: GUAIFENESIN 200MG/10ML SUGAR FREE UDC PO PRN (07:30)
[2018-05-22] MEDS ORDERED: ENOXAPARIN 40MG/0.4ML SYR SUBCUT SCH (07:30)
[2018-05-22] MEDS ORDERED: ONDANSETRON HCL 4MG/2ML INJ IV PRN (07:30)
[2018-05-22] MEDS: ASPIRIN 81MG EC TABLET PO SCH (09:00)
[2018-05-22 09:18] VITALS: BP 147/87
[2018-05-22] MEDS ORDERED: DIPHENHYDRAMINE 50MG/ML VIAL IV NR ×2 (10:00→14:00)
[2018-05-22] MEDS: ENOXAPARIN 30MG/0.3ML SYR SUBCUT SCH (10:56)
[2018-05-22] MEDS: HYDROMORPHONE HCL/PF 2MG/ML CPJ IV PRN ×3 (10:57→23:21)
[2018-05-22] MEDS ORDERED: LIDOCAINE HCL 1% 20ML VIAL (Pyxis) INJ ONE (11:04)
[2018-05-22] MEDS ORDERED: SODIUM BICARBONATE 4% (2.4MEQ) 5ML VIAL IV ONE (11:04)
[2018-05-22 12:40] VITALS: BP 139/88
[2018-05-22 12:41] VITALS: BP 147/87
[2018-05-22] MEDS: LORAZEPAM 2MG/ML CPJ IV PRN ×2 (15:20→21:12)
[2018-05-22 16:12] VITALS: BP 172/97
[2018-05-22] MEDS: DIPHENHYDRAMINE 50MG/ML VIAL IV PRN (18:16)
[2018-05-22 20:00] VITALS: BP 168/87
[2018-05-22] MEDS ORDERED: EPOETIN ALFA 10000UNITS/ML VIAL SUBCUT SCH (21:00)
[2018-05-23] VITALS: BP 112/77
[2018-05-23 04:00] VITALS: BP 135/87
[2018-05-23] MEDS: DIPHENHYDRAMINE 50MG/ML VIAL IV PRN ×4 (04:00→20:29)
[2018-05-23] MEDS: PHENYTOIN SODIUM EXTENDED 100MG CAPSULE PO SCH ×3 (05:36→21:25)
[2018-05-23] MEDS: HYDROMORPHONE HCL/PF 2MG/ML CPJ IV PRN ×3 (05:38→18:29)
[2018-05-23 07:26] LABS: HEMATOCRIT. 23.7 % (36.0-48.0); HEMOGLOBIN. 7.8 g/dL (12.0-16.0); MEAN CORPUSCULAR HEMOGLOBIN 32.8 pg (28.0-32.0); MEAN CORPUSCULAR VOLUME 99.2 fL (81.0-99.0); MEAN PLATELET VOLUME 8.4 fl (7.4-10.4); PLATELET 105 x1000/uL (130-400); RED BLOOD CELL COUNT 2.39 mill/uL (4.2-5.4); RED CELL DISTRIBUTION WIDTH 16.6 % (11.6-14.6)
[2018-05-23 08:00] VITALS: BP 122/80
[2018-05-23] MEDS: ENOXAPARIN 30MG/0.3ML SYR SUBCUT SCH (09:00)
[2018-05-23] MEDS: ASPIRIN 81MG EC TABLET PO SCH (09:00)
[2018-05-23 10:24] LABS: NUCLEATED RED BLOOD CELLS 1 /100 WBC
[2018-05-23 10:25] LABS: PLATELET ESTIMATE DECREASED
[2018-05-23 12:00] VITALS: BP 132/88
[2018-05-23 12:35] LABS: CHLORIDE 101 mEq/L (98-107)
[2018-05-23 12:41] LABS: LDL CHOLESTEROL 99 mg/dL (5-100)
[2018-05-23 12:43] LABS: T4 FREE 0.78 ng/dL (0.76-1.46)
[2018-05-23 12:44] LABS: HDL CHOLESTEROL 72 mg/dL (40-59)
[2018-05-23 16:00] VITALS: BP 148/92
[2018-05-23] MEDS: LORAZEPAM 2MG/ML CPJ IV PRN (16:30)
[2018-05-23 20:00] VITALS: BP 125/80
[2018-05-24] VITALS: BP 124/84
[2018-05-24] MEDS: DIPHENHYDRAMINE 50MG/ML VIAL IV PRN ×3 (00:42→13:09)
[2018-05-24] MEDS: HYDROMORPHONE HCL/PF 2MG/ML CPJ IV PRN ×2 (00:43→07:05)
[2018-05-24 04:00] VITALS: BP 128/85
[2018-05-24] MEDS: PHENYTOIN SODIUM EXTENDED 100MG CAPSULE PO SCH ×2 (05:27→13:58)
[2018-05-24 06:53] LABS: BASOPHILS % 0.9 % (0.0-2.0); EOSINOPHILS % 7.6 % (0.0-5.0); HEMATOCRIT. 22.7 % (36.0-48.0); HEMOGLOBIN. 7.6 g/dL (12.0-16.0); LYMPHOCYTES % 32.4 % (20.0-50.0); MEAN CORPUSCULAR HEMOGLOBIN 32.9 pg (28.0-32.0); MEAN CORPUSCULAR VOLUME 97.6 fL (81.0-99.0); MEAN PLATELET VOLUME 8.5 fl (7.4-10.4); MONOCYTES % 12.1 % (2.0-8.0); PLATELET 131 x1000/uL (130-400); RED BLOOD CELL COUNT 2.32 mill/uL (4.2-5.4); RED CELL DISTRIBUTION WIDTH 16.1 % (11.6-14.6)
[2018-05-24 07:05] VITALS: BP 128/85
[2018-05-24] MEDS ORDERED: HEPARIN SODIUM 1,000 UNIT/1ML VIAL IV NR (08:00)
[2018-05-24] MEDS: LORAZEPAM 2MG/ML CPJ IV PRN (09:20)
[2018-05-24] MEDS: ENOXAPARIN 30MG/0.3ML SYR SUBCUT SCH (09:24)
[2018-05-24] MEDS: ASPIRIN 81MG EC TABLET PO SCH (09:26)
== END 2018-05-24 15:00 | disposition left against medical advice (07) | DRG 441 ==
LOC: ER 01:57 → 8WST 05:32 → CANRESERV 06:51 → ENRESERV 06:51
PROVIDERS: ADMIT Internal Medicine; ATTEND Internal Medicine
PROC: 0W9G3ZZ Drainage of Peritoneal Cavity, Percutaneous Approach (ICD-10-PCS; principal; 2018-05-22)
PROC: 5A1D70Z Performance of Urinary Filtration, Intermittent, Less than 6 Hours Per Day (ICD-10-PCS; 2018-05-22)
PROC: 5A1D70Z Performance of Urinary Filtration, Intermittent, Less than 6 Hours Per Day (ICD-10-PCS; 2018-05-24)
PROC: 30233N1 Transfusion of Nonautologous Red Blood Cells into Peripheral Vein, Percutaneous Approach (ICD-10-PCS; 2018-05-24)
DX: K72.90 Hepatic failure, unspecified without coma (principal); N18.6 End stage renal disease; E46 Unspecified protein-calorie malnutrition; R18.8 Other ascites; I13.2 Hypertensive heart and chronic kidney disease with heart failure and with stage 5 chronic kidney disease, or end stage renal disease; Z68.1 Body mass index [BMI] 19.9 or less, adult; E87.2 Acidosis; E87.5 Hyperkalemia; D64.9 Anemia, unspecified; E03.9 Hypothyroidism, unspecified; M25.519 Pain in unspecified shoulder; M54.9 Dorsalgia, unspecified; G89.29 Other chronic pain; I50.9 Heart failure, unspecified; E87.70 Fluid overload, unspecified; E11.22 Type 2 diabetes mellitus with diabetic chronic kidney disease; Z53.21 Procedure and treatment not carried out due to patient leaving prior to being seen by health care provider; F10.10 Alcohol abuse, uncomplicated; I25.10 Atherosclerotic heart disease of native coronary artery without angina pectoris; Z99.2 Dependence on renal dialysis; Z91.15 Patient's noncompliance with renal dialysis; Z91.018 Allergy to other foods; Z79.899 Other long term (current) drug therapy
CPT/HCPCS: 36415; 49083; 71045; 80048; 80061; 80185; 82962; 83735; 83880; 84439; 84443; 84484; 86850; 86900; 86920; 93005; 94640; 96361; 96374; 96375; 99285; J0885; J1170; J1200; J1644; J1650; J2060; J2270; J3490; J7030; J7611

== ENCOUNTER 2018-06-05 14:37 | Inpatient (IN) | payer MEDICARE, MEDICAID ==
[~2018-06-05] VITALS: Ht 170.2 cm; Wt 53.1 kg
[2018-06-05] MEDS ORDERED: ONDANSETRON HCL 4MG/2ML INJ IV STA (15:31)
[2018-06-05 16:52] LABS: BASOPHILS % 2.7 % (0.0-2.0); EOSINOPHILS % 3.8 % (0.0-5.0); LYMPHOCYTES % 21.9 % (20.0-50.0); MEAN CORPUSCULAR HEMOGLOBIN 33.1 pg (28.0-32.0); MEAN PLATELET VOLUME 7.6 fl (7.4-10.4); MONOCYTES % 7.1 % (2.0-8.0); NEUTROPHILS % 64.5 % (40.0-76.0); PLATELET 93 x1000/uL (130-400); RED CELL DISTRIBUTION WIDTH 16.5 % (11.6-14.6)
[2018-06-05 16:54] LABS: CHLORIDE 96 mEq/L (98-107); HEMOGLOBIN. 6.9 g/dL (12.0-16.0)
[2018-06-05] MEDS ORDERED: MORPHINE SULFATE 4 MG/ML CPJ (NOT FOR IM USE) IV STA (16:54)
[2018-06-05 16:55] LABS: HEMATOCRIT. 21.2 % (36.0-48.0)
[2018-06-05 16:58] LABS: ETHANOL BLOOD 130 mg/dL
[2018-06-05] MEDS ORDERED: DIPHENHYDRAMINE 50MG/ML VIAL IV ONE (17:00)
[2018-06-05] MEDS ORDERED: LABETALOL 5MG/ML SYR 20 MG/4 ML SYRINGE IV ONE (17:00)
[2018-06-05] MEDS ORDERED: MORPHINE SULFATE 10 MG/ML CPJ IV STA (17:03)
[2018-06-05] MEDS ORDERED: LABETALOL HCL 20MG/4ML CARPUJECT IV ONE (17:15)
[2018-06-05] MEDS ORDERED: DEXTROSE 50% WATER 50ML SYRINGE IV ONE ×2 (17:15→19:45)
[2018-06-05 17:42] LABS: INR 1.1; PROTHROMBIN TIME 10.7 sec (9.1-11.1)
[2018-06-05 17:45] LABS: PHOSPHORUS 5.5 mg/dL (2.5-4.9)
[2018-06-05] MEDS ORDERED: MAGNESIUM/ALUMINUM HYDROXIDE/SIMETHICONE 30ML UDC PO PRN (19:30)
[2018-06-05] MEDS ORDERED: ACETAMINOPHEN 325MG TABLET PO PRN (19:30)
[2018-06-05] MEDS ORDERED: ONDANSETRON HCL 4MG/2ML INJ IV PRN (19:30)
[2018-06-05 20:30] VITALS: BP 198/124
[2018-06-05] MEDS: BLOOD SUGAR DIAGNOSTIC STRIP TEST SCH (21:00)
[2018-06-05] MEDS ORDERED: DEXTROSE 50% WATER 50ML SYRINGE IV PRN (21:00)
[2018-06-05] MEDS: DIPHENHYDRAMINE 50MG/ML VIAL IV PRN (21:22)
[2018-06-05 22:00] VITALS: BP 185/113
[2018-06-05] MEDS: CARVEDILOL 12.5MG TABLET PO SCH (22:41)
[2018-06-05] MEDS: SODIUM CHLORIDE 0.9% INJ 3ML FLUSH IVF SCH (22:41)
[2018-06-05] MEDS: PHENYTOIN SODIUM EXTENDED 100MG CAPSULE PO SCH (22:42)
[2018-06-05] MEDS: TEMAZEPAM 15MG CAPSULE PO PRN (23:01)
[2018-06-06] VITALS (16 sets, daily range): BP systolic 127–181; BP diastolic 75–105
[2018-06-06] MEDS: DIPHENHYDRAMINE 50MG/ML VIAL IV PRN ×5 (01:25→23:58)
[2018-06-06] MEDS: SODIUM CHLORIDE 0.9% INJ 3ML FLUSH IVF SCH ×3 (05:39→21:22)
[2018-06-06] MEDS: LEVOTHYROXINE SODIUM 50MCG TABLET PO SCH (05:39)
[2018-06-06] MEDS: PHENYTOIN SODIUM EXTENDED 100MG CAPSULE PO SCH ×3 (05:39→21:22)
[2018-06-06] MEDS: HYDRALAZINE 20MG/ML VIAL IV PRN ×2 (06:08→18:38)
[2018-06-06] MEDS: BLOOD SUGAR DIAGNOSTIC STRIP TEST SCH ×4 (07:40→21:00)
[2018-06-06 08:42] LABS: HEMATOCRIT 23.6 % (36.0-48.0); HEMOGLOBIN 8.1 g/dL (12.0-16.0)
[2018-06-06] MEDS: FOLIC ACID/VITAMIN B COMP W-C TABLET PO SCH (08:46)
[2018-06-06] MEDS: LORAZEPAM 0.5MG TABLET PO PRN ×2 (08:47→20:00)
[2018-06-06] MEDS: AMLODIPINE 10MG TABLET PO SCH (08:47)
[2018-06-06] MEDS: FAMOTIDINE 20MG/2ML VIAL IV SCH (08:48)
[2018-06-06] MEDS: CARVEDILOL 12.5MG TABLET PO SCH ×2 (09:10→21:15)
[2018-06-06] MEDS ORDERED: MORPHINE SULFATE 10 MG/ML CPJ IV ONE (16:30)
[2018-06-06] MEDS: MORPHINE SULFATE 10 MG/ML CPJ IV PRN ×2 (17:08→21:16)
[2018-06-06] MEDS: TEMAZEPAM 15MG CAPSULE PO PRN (21:47)
[2018-06-07] VITALS (11 sets, daily range): BP systolic 120–182; BP diastolic 80–115
[2018-06-07] MEDS: HYDRALAZINE 20MG/ML VIAL IV PRN ×2 (02:05→14:34)
[2018-06-07] MEDS: MORPHINE SULFATE 10 MG/ML CPJ IV PRN ×2 (02:35→20:31)
[2018-06-07] MEDS: DIPHENHYDRAMINE 50MG/ML VIAL IV PRN ×3 (03:53→20:08)
[2018-06-07] MEDS: CLONIDINE 0.1MG TABLET PO PRN ×2 (04:03→23:31)
[2018-06-07] MEDS: PHENYTOIN SODIUM EXTENDED 100MG CAPSULE PO SCH ×3 (05:49→22:00)
[2018-06-07] MEDS: LEVOTHYROXINE SODIUM 50MCG TABLET PO SCH (05:49)
[2018-06-07] MEDS: SODIUM CHLORIDE 0.9% INJ 3ML FLUSH IVF SCH ×3 (05:49→22:00)
[2018-06-07] MEDS: LORAZEPAM 0.5MG TABLET PO PRN ×3 (05:49→22:33)
[2018-06-07 07:19] LABS: BASOPHILS % 1.5 % (0.0-2.0); EOSINOPHILS % 5.8 % (0.0-5.0); HEMATOCRIT. 22.5 % (36.0-48.0); HEMOGLOBIN. 7.7 g/dL (12.0-16.0); LYMPHOCYTES % 35.2 % (20.0-50.0); MEAN CORPUSCULAR HEMOGLOBIN 33.4 pg (28.0-32.0); MEAN CORPUSCULAR VOLUME 97.6 fL (81.0-99.0); MEAN PLATELET VOLUME 7.9 fl (7.4-10.4); MONOCYTES % 12.5 % (2.0-8.0); PLATELET 79 x1000/uL (130-400); RED BLOOD CELL COUNT 2.31 mill/uL (4.2-5.4); RED CELL DISTRIBUTION WIDTH 17.7 % (11.6-14.6)
[2018-06-07] MEDS: BLOOD SUGAR DIAGNOSTIC STRIP TEST SCH ×4 (07:30→20:43)
[2018-06-07] MEDS: AMLODIPINE 10MG TABLET PO SCH (09:48)
[2018-06-07] MEDS: FOLIC ACID/VITAMIN B COMP W-C TABLET PO SCH (09:48)
[2018-06-07] MEDS: FAMOTIDINE 20MG/2ML VIAL IV SCH (09:48)
[2018-06-07] MEDS: CARVEDILOL 12.5MG TABLET PO SCH ×2 (12:02→20:16)
[2018-06-07] MEDS: TEMAZEPAM 15MG CAPSULE PO PRN (23:30)
[2018-06-08] MEDS: DIPHENHYDRAMINE 50MG/ML VIAL IV PRN ×5 (00:35→14:41)
[2018-06-08] MEDS: MORPHINE SULFATE 10 MG/ML CPJ IV PRN ×3 (02:18→14:53)
[2018-06-08] MEDS: PHENYTOIN SODIUM EXTENDED 100MG CAPSULE PO SCH ×2 (05:52→14:40)
[2018-06-08] MEDS: LEVOTHYROXINE SODIUM 50MCG TABLET PO SCH (05:52)
[2018-06-08 06:00] LABS: BASOPHILS % 1.3 % (0.0-2.0); EOSINOPHILS % 6.5 % (0.0-5.0); HEMATOCRIT. 24.4 % (36.0-48.0); HEMOGLOBIN. 8.3 g/dL (12.0-16.0); LYMPHOCYTES % 29.8 % (20.0-50.0); MEAN CORPUSCULAR VOLUME 97.6 fL (81.0-99.0); MEAN PLATELET VOLUME 8.2 fl (7.4-10.4); MONOCYTES % 9.5 % (2.0-8.0); NEUTROPHILS % 52.9 % (40.0-76.0); PLATELET 93 x1000/uL (130-400); RED CELL DISTRIBUTION WIDTH 16.7 % (11.6-14.6)
[2018-06-08] MEDS: SODIUM CHLORIDE 0.9% INJ 3ML FLUSH IVF SCH ×2 (06:00→13:15)
[2018-06-08] MEDS: BLOOD SUGAR DIAGNOSTIC STRIP TEST SCH ×3 (07:30→17:30)
[2018-06-08 08:00] VITALS: BP 147/109
[2018-06-08] MEDS: CARVEDILOL 12.5MG TABLET PO SCH (09:00)
[2018-06-08 11:18] LABS: TOTAL IRON BINDING CAPACITY 168 ug/dL (250-450)
[2018-06-08] MEDS ORDERED: HEPARIN SODIUM 1,000 UNIT/1ML VIAL IV NR (11:30)
[2018-06-08 12:00] VITALS: BP 138/91
[2018-06-08] MEDS: FAMOTIDINE 20MG/2ML VIAL IV SCH (14:39)
[2018-06-08] MEDS: FOLIC ACID/VITAMIN B COMP W-C TABLET PO SCH (14:40)
[2018-06-08] MEDS: AMLODIPINE 10MG TABLET PO SCH (14:40)
[2018-06-08 16:00] VITALS: BP 139/98
[2018-06-08] MEDS ORDERED: ALPR1TAB2 PO (18:39)
[2018-06-08 18:42] VITALS: BP 135/90
[2018-06-08 19:00] VITALS: BP 147/109
[2018-06-08] MEDS ORDERED: EPOETIN ALFA 10000UNITS/ML VIAL SUBCUT SCH (21:00)
== END 2018-06-08 23:39 | disposition home or self-care (01) | DRG 808 ==
LOC: ER 14:37 → EDBEDREQ 17:02 → 5EST 17:14 → EDBEDREQSVC 17:18 → EDBEDREQ 17:18 → EDBEDREQTM 17:18 → ENRESERV 18:59 → EDBEDREQ 20:20
PROVIDERS: ADMIT Internal Medicine; ATTEND Internal Medicine
PROC: 30233N1 Transfusion of Nonautologous Red Blood Cells into Peripheral Vein, Percutaneous Approach (ICD-10-PCS; principal; 2018-06-06)
PROC: 5A1D70Z Performance of Urinary Filtration, Intermittent, Less than 6 Hours Per Day (ICD-10-PCS; 2018-06-06)
PROC: 5A1D70Z Performance of Urinary Filtration, Intermittent, Less than 6 Hours Per Day (ICD-10-PCS; 2018-06-08)
DX: D61.818 Other pancytopenia (principal); G93.41 Metabolic encephalopathy; N18.6 End stage renal disease; I13.2 Hypertensive heart and chronic kidney disease with heart failure and with stage 5 chronic kidney disease, or end stage renal disease; I50.22 Chronic systolic (congestive) heart failure; E87.1 Hypo-osmolality and hyponatremia; E87.2 Acidosis; N17.9 Acute kidney failure, unspecified; Z99.2 Dependence on renal dialysis; E03.9 Hypothyroidism, unspecified; E05.90 Thyrotoxicosis, unspecified without thyrotoxic crisis or storm; E83.39 Other disorders of phosphorus metabolism; E87.5 Hyperkalemia; E16.2 Hypoglycemia, unspecified; F99 Mental disorder, not otherwise specified; I16.0 Hypertensive urgency; F41.1 Generalized anxiety disorder; G40.909 Epilepsy, unspecified, not intractable, without status epilepticus; I25.10 Atherosclerotic heart disease of native coronary artery without angina pectoris; K76.0 Fatty (change of) liver, not elsewhere classified; Z82.49 Family history of ischemic heart disease and other diseases of the circulatory system; Z83.3 Family history of diabetes mellitus; Z91.15 Patient's noncompliance with renal dialysis; Z91.19 Patient's noncompliance with other medical treatment and regimen; Z98.891 History of uterine scar from previous surgery; Z91.018 Allergy to other foods; Z79.899 Other long term (current) drug therapy
CPT/HCPCS: 36415; 71045; 80048; 80185; 82533; 82962; 83540; 83550; 83735; 84100; 84443; 84484; 85014; 85018; 86038; 86850; 86900; 86920; 93005; 96374; 96375; 96376; 99291; G0482; J0360; J0885; J1200; J1644; J2270; J2405; J3490; P9016

== ENCOUNTER 2018-06-25 18:06 | Inpatient (IN) | payer MEDICARE, MEDICAID ==
[~2018-06-25] VITALS: Ht 170.2 cm; Wt 58.1 kg
[~2018-06-25 18:06] MED LIST changes: +ALPR1TAB2 PO
[2018-06-26] MEDS ORDERED: HYDROCODONE/ACETAMINOPHEN 5/325MG TABLET PO STA (00:15)
[2018-06-26 01:14] LABS: MEAN CORPUSCULAR HEMOGLOBIN 33.2 pg (28.0-32.0); MEAN CORPUSCULAR VOLUME 98.2 fL (81.0-99.0); MEAN PLATELET VOLUME 7.7 fl (7.4-10.4); PLATELET 134 x1000/uL (130-400); RED BLOOD CELL COUNT 1.76 mill/uL (4.2-5.4); RED CELL DISTRIBUTION WIDTH 15.5 % (11.6-14.6)
[2018-06-26 01:17] LABS: HEMATOCRIT. 17.2 % (36.0-48.0); HEMOGLOBIN. 5.8 g/dL (12.0-16.0)
[2018-06-26 01:19] LABS: CHLORIDE 96 mEq/L (98-107)
[2018-06-26 01:21] LABS: INR 1.1; PROTHROMBIN TIME 11.4 sec (9.1-11.1)
[2018-06-26] MEDS ORDERED: MORPHINE SULFATE 4 MG/ML CPJ (NOT FOR IM USE) IV ONE (02:00)
[2018-06-26] MEDS ORDERED: MORPHINE SULFATE 10 MG/ML CPJ IM ONE (02:15)
[2018-06-26 02:19] LABS: PLATELET ESTIMATE NORMAL
[2018-06-26] MEDS ORDERED: ACETAMINOPHEN 650MG SUPP PR PRN (09:00)
[2018-06-26] MEDS ORDERED: ONDANSETRON HCL 4MG/2ML INJ IV PRN (09:00)
[2018-06-26] MEDS ORDERED: DOCUSATE SODIUM 100MG CAPSULE PO PRN (09:00)
[2018-06-26] MEDS ORDERED: IPRATROPIUM/ALBUTEROL 0.5-3(2.5)MG/3ML NEB INH PRN (09:00)
[2018-06-26] MEDS ORDERED: DIPHENHYDRAMINE 50MG/ML VIAL IV PRN (09:00)
[2018-06-26] MEDS ORDERED: MAGNESIUM/ALUMINUM HYDROXIDE/SIMETHICONE 30ML UDC PO PRN (09:00)
[2018-06-26] MEDS ORDERED: HYDROCODONE/ACETAMINOPHEN 5/325MG TABLET PO PRN (09:00)
[2018-06-26] MEDS ORDERED: ACETAMINOPHEN 650MG/20.3ML UDC GT PRN (09:00)
[2018-06-26] MEDS ORDERED: ACETAMINOPHEN 325MG TABLET PO PRN (09:00)
[2018-06-26] MEDS ORDERED: GUAIFENESIN 200MG/10ML SUGAR FREE UDC PO PRN (09:00)
[2018-06-26] MEDS ORDERED: DIPHENHYDRAMINE 50MG/ML VIAL IV NR (09:15)
[2018-06-26] MEDS ORDERED: HYDROMORPHONE HCL/PF 2MG/ML CPJ IV PRN (09:15)
[2018-06-26] MEDS: CLONIDINE 0.1MG TABLET PO PRN ×3 (09:48→17:53)
[2018-06-26 10:00] VITALS: BP 197/120
[2018-06-26] MEDS: PANTOPRAZOLE SODIUM 40 MG/VIAL IV SCH (10:12)
[2018-06-26] MEDS: HYDROCODONE/ACETAMINOPHEN 10/325MG TABLET PO PRN ×2 (11:29→22:59)
[2018-06-26] MEDS: SODIUM CHLORIDE 0.9% INJ 3ML FLUSH IVF SCH ×2 (12:46→21:08)
[2018-06-26] MEDS ORDERED: DIPHENHYDRAMINE 50MG CAPSULE PO PRN (13:30)
[2018-06-26 13:42] VITALS: BP 197/118
[2018-06-26] MEDS: AMLODIPINE 10MG TABLET PO SCH (13:57)
[2018-06-26] MEDS: HYDRALAZINE HCL 50MG TABLET PO SCH ×2 (13:57→21:08)
[2018-06-26] MEDS ORDERED: LORAZEPAM 1MG TABLET PO NR (15:30)
[2018-06-26 20:00] VITALS: BP 150/89
[2018-06-26] MEDS: IPRATROPIUM/ALBUTEROL 0.5-3(2.5)MG/3ML NEB INH SCH (20:28)
[2018-06-26 21:11] LABS: HEMATOCRIT 22.9 % (36.0-48.0); HEMOGLOBIN 7.8 g/dL (12.0-16.0); MEAN CORPUSCULAR HEMOGLOBIN 31.7 pg (28.0-32.0); MEAN CORPUSCULAR VOLUME 93.4 fL (81.0-99.0); PLATELET 106 x1000/uL (130-400); RED BLOOD CELL COUNT 2.45 mill/uL (4.2-5.4)
[2018-06-27] VITALS (8 sets, daily range): BP systolic 104–186; BP diastolic 63–117
[2018-06-27] MEDS: CLONIDINE 0.1MG TABLET PO PRN ×3 (01:06→15:10)
[2018-06-27] MEDS: IPRATROPIUM/ALBUTEROL 0.5-3(2.5)MG/3ML NEB INH SCH (01:20)
[2018-06-27] MEDS: SODIUM CHLORIDE 0.9% INJ 3ML FLUSH IVF SCH ×2 (05:15→14:00)
[2018-06-27] MEDS: HYDRALAZINE HCL 50MG TABLET PO SCH ×2 (06:06→13:37)
[2018-06-27] MEDS ORDERED: LIDOCAINE HCL 1% 20ML VIAL (Pyxis) INJ ONE (08:10)
[2018-06-27] MEDS: AMLODIPINE 10MG TABLET PO SCH ×3 (08:10→11:49)
[2018-06-27] MEDS: PANTOPRAZOLE SODIUM 40 MG/VIAL IV SCH (08:11)
[2018-06-27 12:41] LABS: HEMATOCRIT. 26.5 % (36.0-48.0); HEMOGLOBIN. 8.9 g/dL (12.0-16.0); MEAN CORPUSCULAR HEMOGLOBIN 31.3 pg (28.0-32.0); MEAN CORPUSCULAR VOLUME 93.2 fL (81.0-99.0); MEAN PLATELET VOLUME 7.5 fl (7.4-10.4); PLATELET 147 x1000/uL (130-400); RED BLOOD CELL COUNT 2.84 mill/uL (4.2-5.4); RED CELL DISTRIBUTION WIDTH 17.9 % (11.6-14.6)
[2018-06-27 12:47] LABS: CHLORIDE 101 mEq/L (98-107)
[2018-06-27 12:56] LABS: HDL CHOLESTEROL 108 mg/dL (40-59); LDL CHOLESTEROL 105 mg/dL (5-100)
[2018-06-27 13:00] LABS: NUCLEATED RED BLOOD CELLS 1 /100 WBC; PLATELET ESTIMATE NORMAL
[2018-06-27] MEDS ORDERED: CARVEDILOL 12.5MG TABLET PO SCH (15:45)
[2018-06-27] MEDS ORDERED: FUROSEMIDE 40MG TABLET PO SCH (15:45)
[2018-06-27] MEDS ORDERED: PHENYTOIN SODIUM EXTENDED 100MG CAPSULE PO SCH (15:45)
[2018-06-28] MEDS ORDERED: FAMOTIDINE 20MG TABLET PO SCH (09:00)
== END 2018-06-27 17:50 | disposition home or self-care (01) | DRG 811 ==
LOC: ER 18:06 → 8WST 06-26 01:48 → EDBEDREQ 06-26 02:11 → EDBEDREQTM 06-26 02:11 → ENRESERV 06-26 07:34
PROVIDERS: ADMIT Family Medicine; ATTEND Family Medicine
PROC: 30233N1 Transfusion of Nonautologous Red Blood Cells into Peripheral Vein, Percutaneous Approach (ICD-10-PCS; 2018-06-26)
PROC: 5A1D70Z Performance of Urinary Filtration, Intermittent, Less than 6 Hours Per Day (ICD-10-PCS; 2018-06-26)
PROC: B5181ZA Fluoroscopy of Superior Vena Cava using Low Osmolar Contrast, Guidance (ICD-10-PCS; principal; 2018-06-27)
PROC: 02HV33Z Insertion of Infusion Device into Superior Vena Cava, Percutaneous Approach (ICD-10-PCS; 2018-06-27)
PROC: B548ZZA Ultrasonography of Superior Vena Cava, Guidance (ICD-10-PCS; 2018-06-27)
PROC: 5A1D70Z Performance of Urinary Filtration, Intermittent, Less than 6 Hours Per Day (ICD-10-PCS; 2018-06-27)
DX: D64.9 Anemia, unspecified (principal); N18.6 End stage renal disease; E44.0 Moderate protein-calorie malnutrition; I13.2 Hypertensive heart and chronic kidney disease with heart failure and with stage 5 chronic kidney disease, or end stage renal disease; I50.32 Chronic diastolic (congestive) heart failure; R18.8 Other ascites; E05.90 Thyrotoxicosis, unspecified without thyrotoxic crisis or storm; F10.20 Alcohol dependence, uncomplicated; M54.9 Dorsalgia, unspecified; E03.9 Hypothyroidism, unspecified; E11.22 Type 2 diabetes mellitus with diabetic chronic kidney disease; G40.909 Epilepsy, unspecified, not intractable, without status epilepticus; G89.29 Other chronic pain; I25.10 Atherosclerotic heart disease of native coronary artery without angina pectoris; K21.9 Gastro-esophageal reflux disease without esophagitis; K70.40 Alcoholic hepatic failure without coma; Z91.15 Patient's noncompliance with renal dialysis; Z91.19 Patient's noncompliance with other medical treatment and regimen; Z99.2 Dependence on renal dialysis; Z88.8 Allergy status to other drugs, medicaments and biological substances; Z91.018 Allergy to other foods; Z79.899 Other long term (current) drug therapy
CPT/HCPCS: 36415; 36569; 71045; 72100; 76937; 77001; 80048; 80061; 83880; 84484; 85027; 86850; 86900; 86920; 93005; 96372; 96374; 99285; C1725; C1893; J1170; J1200; J2270; J3490; J7050; J7620; P9016; Q0163

== ENCOUNTER 2018-07-03 22:34 | Inpatient (IN) | payer MEDICARE, MEDICAID ==
[~2018-07-03] VITALS: Ht 170.2 cm; Wt 54.4 kg
[2018-07-03] MEDS ORDERED: MORPHINE SULFATE 4 MG/ML CPJ (NOT FOR IM USE) IV STA (22:50)
[2018-07-03] MEDS ORDERED: ONDANSETRON HCL 4MG/2ML INJ IV STA (22:50)
[2018-07-03 23:52] LABS: BASOPHILS % 1.5 % (0.0-2.0); EOSINOPHILS % 7.2 % (0.0-5.0); HEMOGLOBIN. 7.2 g/dL (12.0-16.0); MEAN CORPUSCULAR HEMOGLOBIN 32.3 pg (28.0-32.0); MEAN CORPUSCULAR VOLUME 94.6 fL (81.0-99.0); MEAN PLATELET VOLUME 8.1 fl (7.4-10.4); MONOCYTES % 14.7 % (2.0-8.0); NEUTROPHILS % 51.6 % (40.0-76.0); PLATELET 128 x1000/uL (130-400); RED BLOOD CELL COUNT 2.22 mill/uL (4.2-5.4)
[2018-07-03 23:58] LABS: CHLORIDE 98 mEq/L (98-107)
[2018-07-04] VITALS (8 sets, daily range): BP systolic 138–186; BP diastolic 70–123
[2018-07-04] MEDS ORDERED: DIPHENHYDRAMINE 50MG/ML VIAL IV ONE ×2 (00:15→07:15)
[2018-07-04] MEDS: LORAZEPAM 0.5MG TABLET PO PRN ×2 (08:21→20:41)
[2018-07-04] MEDS: DIPHENHYDRAMINE 50MG/ML VIAL IV PRN ×2 (08:22→14:24)
[2018-07-04] MEDS: HYDROMORPHONE HCL/PF 2MG/ML CPJ IV PRN ×2 (11:01→17:54)
[2018-07-04] MEDS ORDERED: ONDANSETRON HCL 4MG/2ML INJ IV PRN (15:00)
[2018-07-04] MEDS ORDERED: MAGNESIUM/ALUMINUM HYDROXIDE/SIMETHICONE 30ML UDC PO PRN (15:00)
[2018-07-04] MEDS ORDERED: DOCUSATE SODIUM 100MG CAPSULE PO PRN (15:00)
[2018-07-04] MEDS ORDERED: ACETAMINOPHEN 325MG TABLET PO PRN (15:00)
[2018-07-04] MEDS ORDERED: TRAMADOL 50MG TABLET PO PRN (15:06)
[2018-07-04] MEDS ORDERED: HEPARIN SODIUM 1,000 UNIT/1ML VIAL IV SCH (15:15)
[2018-07-04] MEDS: FLUOXETINE HCL 20MG CAPSULE PO SCH (16:00)
[2018-07-04] MEDS ORDERED: MEDICATION NOT ON FORMULARY EA (Alprazolam (Xanax) 0.5 MG) PO SCH (17:00)
[2018-07-04] MEDS: ASPIRIN 81MG EC TABLET PO SCH (17:00)
[2018-07-04] MEDS ORDERED: DIPHENHYDRAMINE 50MG/ML VIAL IV NR (17:02)
[2018-07-04 17:19] LABS: HEMATOCRIT. 32.1 % (36.0-48.0); HEMOGLOBIN. 10.6 g/dL (12.0-16.0); MEAN CORPUSCULAR HEMOGLOBIN 29.4 pg (28.0-32.0); MEAN CORPUSCULAR VOLUME 88.9 fL (81.0-99.0); MEAN PLATELET VOLUME 7.5 fl (7.4-10.4); PLATELET 135 x1000/uL (130-400); RED BLOOD CELL COUNT 3.61 mill/uL (4.2-5.4); RED CELL DISTRIBUTION WIDTH 24.3 % (11.6-14.6)
[2018-07-04] MEDS ORDERED: DIPHENHYDRAMINE 50MG/ML VIAL IV PRN (17:32)
[2018-07-04] MEDS: CLONIDINE 0.1MG TABLET PO PRN (17:49)
[2018-07-04] MEDS: PHENYTOIN SODIUM EXTENDED 100MG CAPSULE PO SCH (18:47)
[2018-07-04] MEDS ORDERED: ZOLPIDEM TARTRATE 5MG TABLET PO PRN (20:00)
[2018-07-04 20:51] LABS: PLATELET ESTIMATE NORMAL
[2018-07-04] MEDS: CARVEDILOL 12.5MG TABLET PO SCH (21:22)
[2018-07-05] VITALS (7 sets, daily range): BP systolic 122–162; BP diastolic 77–117
[2018-07-05] MEDS: HYDROMORPHONE HCL/PF 2MG/ML CPJ IV PRN (01:45)
[2018-07-05] MEDS: CLONIDINE 0.1MG TABLET PO PRN ×2 (01:45→08:33)
[2018-07-05] MEDS ORDERED: DIPHENHYDRAMINE 50MG/ML VIAL IV PRN (02:00)
[2018-07-05] MEDS: HYDROCODONE/ACETAMINOPHEN 5/325MG TABLET PO PRN ×2 (05:47→13:35)
[2018-07-05] MEDS ORDERED: LEVOTHYROXINE SODIUM 50MCG TABLET PO SCH (07:20)
[2018-07-05 08:04] LABS: HEMATOCRIT. 32.7 % (36.0-48.0); HEMOGLOBIN. 10.8 g/dL (12.0-16.0); MEAN CORPUSCULAR HEMOGLOBIN 29.4 pg (28.0-32.0); MEAN CORPUSCULAR VOLUME 89.2 fL (81.0-99.0); MEAN PLATELET VOLUME 7.6 fl (7.4-10.4); PLATELET 128 x1000/uL (130-400); RED BLOOD CELL COUNT 3.66 mill/uL (4.2-5.4); RED CELL DISTRIBUTION WIDTH 23.9 % (11.6-14.6)
[2018-07-05] MEDS: ASPIRIN 81MG EC TABLET PO SCH (08:32)
[2018-07-05] MEDS: PHENYTOIN SODIUM EXTENDED 100MG CAPSULE PO SCH ×3 (08:33→18:03)
[2018-07-05] MEDS: FLUOXETINE HCL 20MG CAPSULE PO SCH (08:33)
[2018-07-05] MEDS: CARVEDILOL 12.5MG TABLET PO SCH (08:34)
[2018-07-05] MEDS ORDERED: LOSARTAN POTASSIUM 100 MG TABLET PO SCH (09:00)
[2018-07-05 09:45] LABS: T4 FREE 0.74 ng/dL (0.76-1.46)
[2018-07-05 14:23] LABS: PLATELET ESTIMATE NORMAL
== END 2018-07-05 19:40 | disposition home or self-care (01) | DRG 291 ==
LOC: ER 22:34 → 6EST 07-04 00:49 → EDBEDREQSVC 07-04 01:03 → ENRESERV 07-04 07:55
PROVIDERS: ADMIT Internal Medicine; ATTEND Internal Medicine
PROC: 5A1D70Z Performance of Urinary Filtration, Intermittent, Less than 6 Hours Per Day (ICD-10-PCS; principal; 2018-07-04)
PROC: 30233N1 Transfusion of Nonautologous Red Blood Cells into Peripheral Vein, Percutaneous Approach (ICD-10-PCS; 2018-07-04)
DX: I13.2 Hypertensive heart and chronic kidney disease with heart failure and with stage 5 chronic kidney disease, or end stage renal disease (principal); N18.6 End stage renal disease; E46 Unspecified protein-calorie malnutrition; K86.1 Other chronic pancreatitis; Z68.1 Body mass index [BMI] 19.9 or less, adult; D64.9 Anemia, unspecified; E78.5 Hyperlipidemia, unspecified; F10.20 Alcohol dependence, uncomplicated; G40.909 Epilepsy, unspecified, not intractable, without status epilepticus; G47.00 Insomnia, unspecified; I25.10 Atherosclerotic heart disease of native coronary artery without angina pectoris; I27.20 Pulmonary hypertension, unspecified; I50.9 Heart failure, unspecified; E05.90 Thyrotoxicosis, unspecified without thyrotoxic crisis or storm; E03.9 Hypothyroidism, unspecified; K70.31 Alcoholic cirrhosis of liver with ascites; K70.40 Alcoholic hepatic failure without coma; N83.209 Unspecified ovarian cyst, unspecified side; Z91.19 Patient's noncompliance with other medical treatment and regimen; Z91.81 History of falling; Z99.2 Dependence on renal dialysis; Z91.018 Allergy to other foods; Z91.010 Allergy to peanuts; Z98.891 History of uterine scar from previous surgery
CPT/HCPCS: 36415; 71045; 72100; 80048; 80185; 82550; 84439; 84443; 84484; 86850; 86900; 86920; 93005; 93970; 96374; 99285; C1893; J1170; J1200; J1644; J2270; J2405; J7050; P9016

== ENCOUNTER 2018-07-18 15:01 | Inpatient (IN) | payer MEDICARE, MEDICAID ==
[~2018-07-18] VITALS: Ht 165.1 cm; Wt 64.0 kg
[2018-07-18] MEDS ORDERED: ONDANSETRON HCL 4MG/2ML INJ IV STA (18:15)
[2018-07-18] MEDS ORDERED: MORPHINE SULFATE 4 MG/ML CPJ (NOT FOR IM USE) IV STA (18:15)
[2018-07-18 19:06] LABS: BASOPHILS % 2.6 % (0.0-2.0); EOSINOPHILS % 5.2 % (0.0-5.0); HEMATOCRIT. 24.8 % (36.0-48.0); HEMOGLOBIN. 8.3 g/dL (12.0-16.0); LYMPHOCYTES % 23.5 % (20.0-50.0); MEAN CORPUSCULAR HEMOGLOBIN 30.3 pg (28.0-32.0); MEAN CORPUSCULAR VOLUME 91.1 fL (81.0-99.0); MEAN PLATELET VOLUME 7.9 fl (7.4-10.4); MONOCYTES % 7.9 % (2.0-8.0); NEUTROPHILS % 60.8 % (40.0-76.0); PLATELET 187 x1000/uL (130-400); RED BLOOD CELL COUNT 2.73 mill/uL (4.2-5.4); RED CELL DISTRIBUTION WIDTH 23.8 % (11.6-14.6)
[2018-07-18 19:09] LABS: CHLORIDE 102 mEq/L (98-107)
[2018-07-18 19:12] LABS: INR 1.1; PARTIAL THROMBOPLASTIN TIME 26.3 sec (23.4-31.0); PROTHROMBIN TIME 11.4 sec (9.1-11.1)
[2018-07-18 19:26] LABS: PLATELET ESTIMATE NORMAL
[2018-07-18] MEDS ORDERED: DIPHENHYDRAMINE 50MG/ML VIAL IV ONE ×2 (20:15→22:45)
[2018-07-18] MEDS ORDERED: SODIUM BICARBONATE 8.4% 1 MEQ/ML 50ML SYR IV ONE (20:30)
[2018-07-18] MEDS ORDERED: SODIUM POLYSTYRENE SULFONATE 15 G/60 ML BOT PO ONE (20:30)
[2018-07-18] MEDS ORDERED: ALBUTEROL (0.083%) 2.5MG/3ML NEB HHN ONE (20:30)
[2018-07-18] MEDS ORDERED: ALBUTEROL (0.5%) 2.5MG/0.5ML NEB HHN ONE (20:44)
[2018-07-18] MEDS ORDERED: SODIUM CHLORIDE 0.9% 250 ML IV ONE (21:24)
[2018-07-18] MEDS ORDERED: MORPHINE SULFATE 4 MG/ML CPJ (NOT FOR IM USE) IV ONE (22:45)
[2018-07-18] MEDS ORDERED: CLONIDINE 0.2MG TABLET PO ONE (23:00)
[2018-07-19] MEDS ORDERED: ACETAMINOPHEN 325MG TABLET PO PRN (01:30)
[2018-07-19] MEDS ORDERED: LORAZEPAM 0.5MG TABLET PO PRN (01:30)
[2018-07-19] MEDS ORDERED: IPRATROPIUM/ALBUTEROL 0.5-3(2.5)MG/3ML NEB INH PRN (01:30)
[2018-07-19] MEDS ORDERED: ONDANSETRON HCL 4MG/2ML INJ IV PRN (01:30)
[2018-07-19] MEDS ORDERED: MAGNESIUM/ALUMINUM HYDROXIDE/SIMETHICONE 30ML UDC PO PRN (01:30)
[2018-07-19] MEDS: LORAZEPAM 1MG TABLET PO PRN (01:53)
[2018-07-19] MEDS: CLONIDINE 0.2MG TABLET PO PRN (01:53)
[2018-07-19 09:20] VITALS: BP 196/127
[2018-07-19 09:22] VITALS: BP 196/127
[2018-07-19] MEDS: HYDROMORPHONE HCL/PF 2MG/ML CPJ IV PRN ×2 (11:20→19:01)
[2018-07-19] MEDS: CARVEDILOL 12.5MG TABLET PO SCH ×2 (11:20→21:23)
[2018-07-19] MEDS: FAMOTIDINE 20MG TABLET PO SCH ×2 (11:20→21:17)
[2018-07-19] MEDS: AMLODIPINE 10MG TABLET PO SCH (11:21)
[2018-07-19] MEDS: FOLIC ACID/VITAMIN B COMP W-C TABLET PO SCH (11:21)
[2018-07-19] MEDS: LEVOTHYROXINE SODIUM 50MCG TABLET PO SCH (11:21)
[2018-07-19] MEDS: DIPHENHYDRAMINE 50MG/ML VIAL IV PRN (11:55)
[2018-07-19 12:00] VITALS: BP 177/114
[2018-07-19] MEDS: PHENYTOIN SODIUM EXTENDED 100MG CAPSULE PO SCH ×2 (13:29→21:39)
[2018-07-19] MEDS: SEVELAMER CARBONATE 800 MG TABLET PO SCH ×2 (13:29→19:16)
[2018-07-19] MEDS: LORAZEPAM 2MG/ML CPJ IV PRN ×2 (13:30→22:58)
[2018-07-19] MEDS ORDERED: HEPARIN SODIUM 1,000 UNIT/1ML VIAL IV NR (14:15)
[2018-07-19] MEDS: DIPHENHYDRAMINE 50MG/ML VIAL IV NR ×2 (14:48→21:15)
[2018-07-19] MEDS: SODIUM CHLORIDE 0.9% INJ 3ML FLUSH IVF SCH ×2 (14:48→21:24)
[2018-07-19 16:00] VITALS: BP 132/70
[2018-07-19 20:00] VITALS: BP 190/113
[2018-07-20] VITALS (7 sets, daily range): BP systolic 133–174; BP diastolic 89–110
[2018-07-20] MEDS: HYDROMORPHONE HCL/PF 2MG/ML CPJ IV PRN ×3 (01:25→14:09)
[2018-07-20] MEDS: DIPHENHYDRAMINE 50MG/ML VIAL IV PRN ×3 (03:31→15:50)
[2018-07-20] MEDS: LEVOTHYROXINE SODIUM 50MCG TABLET PO SCH (06:58)
[2018-07-20] MEDS: PHENYTOIN SODIUM EXTENDED 100MG CAPSULE PO SCH ×3 (06:58→21:20)
[2018-07-20] MEDS: SODIUM CHLORIDE 0.9% INJ 3ML FLUSH IVF SCH ×3 (07:00→21:22)
[2018-07-20] MEDS: AMLODIPINE 10MG TABLET PO SCH (08:14)
[2018-07-20] MEDS: FOLIC ACID/VITAMIN B COMP W-C TABLET PO SCH (08:14)
[2018-07-20] MEDS: SEVELAMER CARBONATE 800 MG TABLET PO SCH ×3 (08:15→18:41)
[2018-07-20] MEDS: CARVEDILOL 12.5MG TABLET PO SCH ×2 (08:15→21:21)
[2018-07-20] MEDS: FAMOTIDINE 20MG TABLET PO SCH ×2 (08:15→21:20)
[2018-07-20] MEDS: LORAZEPAM 2MG/ML CPJ IV PRN ×2 (11:04→17:26)
[2018-07-20] MEDS: CLONIDINE 0.2MG TABLET PO PRN (17:26)
[2018-07-21] VITALS (7 sets, daily range): BP systolic 148–185; BP diastolic 94–115
[2018-07-21] MEDS: LORAZEPAM 1MG TABLET PO PRN (01:00)
[2018-07-21] MEDS: DIPHENHYDRAMINE 50MG/ML VIAL IV PRN ×4 (01:41→20:47)
[2018-07-21] MEDS: HYDROMORPHONE HCL/PF 2MG/ML CPJ IV PRN ×4 (01:42→20:10)
[2018-07-21] MEDS: SODIUM CHLORIDE 0.9% INJ 3ML FLUSH IVF SCH ×3 (05:59→21:23)
[2018-07-21] MEDS: LEVOTHYROXINE SODIUM 50MCG TABLET PO SCH (06:00)
[2018-07-21] MEDS: PHENYTOIN SODIUM EXTENDED 100MG CAPSULE PO SCH ×3 (06:18→21:23)
[2018-07-21 06:21] LABS: BASOPHILS % 1.2 % (0.0-2.0); EOSINOPHILS % 7.3 % (0.0-5.0); HEMATOCRIT. 21.6 % (36.0-48.0); HEMOGLOBIN. 7.2 g/dL (12.0-16.0); MEAN CORPUSCULAR HEMOGLOBIN 30.9 pg (28.0-32.0); MEAN CORPUSCULAR VOLUME 92.7 fL (81.0-99.0); MEAN PLATELET VOLUME 8.3 fl (7.4-10.4); MONOCYTES % 13.2 % (2.0-8.0); NEUTROPHILS % 55.3 % (40.0-76.0); PLATELET 127 x1000/uL (130-400); RED BLOOD CELL COUNT 2.33 mill/uL (4.2-5.4); RED CELL DISTRIBUTION WIDTH 23.4 % (11.6-14.6)
[2018-07-21] MEDS: CARVEDILOL 12.5MG TABLET PO SCH ×2 (08:25→20:10)
[2018-07-21] MEDS: AMLODIPINE 10MG TABLET PO SCH (08:26)
[2018-07-21] MEDS: FOLIC ACID/VITAMIN B COMP W-C TABLET PO SCH (08:49)
[2018-07-21] MEDS: SEVELAMER CARBONATE 800 MG TABLET PO SCH ×3 (08:49→18:00)
[2018-07-21] MEDS: FAMOTIDINE 20MG TABLET PO SCH (08:49)
[2018-07-21] MEDS: LORAZEPAM 2MG/ML CPJ IV PRN ×3 (11:26→22:25)
[2018-07-21] MEDS ORDERED: HEPARIN SODIUM 1,000 UNIT/1ML VIAL IV NR (16:30)
[2018-07-21 16:34] LABS: HEMATOCRIT 24.4 % (36.0-48.0); HEMOGLOBIN 8.3 g/dL (12.0-16.0)
[2018-07-21 17:44] LABS: INR 1.1; PROTHROMBIN TIME 11.3 sec (9.1-11.1)
[2018-07-21] MEDS: CLONIDINE 0.2MG TABLET PO PRN (20:10)
[2018-07-22 00:05] VITALS: BP 172/110
[2018-07-22] MEDS: HYDROMORPHONE HCL/PF 2MG/ML CPJ IV PRN ×3 (02:14→14:50)
[2018-07-22] MEDS: DIPHENHYDRAMINE 50MG/ML VIAL IV PRN ×2 (03:06→09:26)
[2018-07-22 04:00] VITALS: BP_SYST 120; BP_SYST 158; BP_DIAS 74; BP_DIAS 89
[2018-07-22] MEDS: SODIUM CHLORIDE 0.9% INJ 3ML FLUSH IVF SCH ×2 (06:27→14:07)
[2018-07-22] MEDS: LEVOTHYROXINE SODIUM 50MCG TABLET PO SCH (06:27)
[2018-07-22] MEDS: PHENYTOIN SODIUM EXTENDED 100MG CAPSULE PO SCH ×2 (06:27→14:06)
[2018-07-22] MEDS: LORAZEPAM 2MG/ML CPJ IV PRN (06:39)
[2018-07-22 06:54] LABS: BASOPHILS % 1.3 % (0.0-2.0); EOSINOPHILS % 7.6 % (0.0-5.0); LYMPHOCYTES % 21.6 % (20.0-50.0); MEAN CORPUSCULAR HEMOGLOBIN 30.8 pg (28.0-32.0); MEAN CORPUSCULAR VOLUME 92.6 fL (81.0-99.0); MEAN PLATELET VOLUME 8.3 fl (7.4-10.4); MONOCYTES % 13.3 % (2.0-8.0); NEUTROPHILS % 56.2 % (40.0-76.0); PLATELET 133 x1000/uL (130-400); RED BLOOD CELL COUNT 2.91 mill/uL (4.2-5.4); RED CELL DISTRIBUTION WIDTH 21.2 % (11.6-14.6)
[2018-07-22 08:00] VITALS: BP 164/100
[2018-07-22] MEDS: AMLODIPINE 10MG TABLET PO SCH (08:38)
[2018-07-22] MEDS: FOLIC ACID/VITAMIN B COMP W-C TABLET PO SCH (08:38)
[2018-07-22] MEDS: SEVELAMER CARBONATE 800 MG TABLET PO SCH ×2 (08:39→14:06)
[2018-07-22] MEDS: CARVEDILOL 12.5MG TABLET PO SCH (08:39)
[2018-07-22] MEDS ORDERED: FAMOTIDINE 20MG TABLET PO SCH (09:00)
[2018-07-22] MEDS: CLONIDINE 0.2MG TABLET PO PRN (14:54)
[2018-07-22 16:17] VITALS: BP 150/84
== END 2018-07-22 16:42 | disposition home or self-care (01) | DRG 640 ==
LOC: ER 15:01 → ENRESERV 07-19 07:33 → 6WST 07-19 09:25
PROVIDERS: ADMIT Internal Medicine; ATTEND Internal Medicine
PROC: 5A1D70Z Performance of Urinary Filtration, Intermittent, Less than 6 Hours Per Day (ICD-10-PCS; 2018-07-19)
PROC: 5A1D70Z Performance of Urinary Filtration, Intermittent, Less than 6 Hours Per Day (ICD-10-PCS; 2018-07-20)
PROC: 30233N1 Transfusion of Nonautologous Red Blood Cells into Peripheral Vein, Percutaneous Approach (ICD-10-PCS; principal; 2018-07-21)
DX: E87.5 Hyperkalemia (principal); N18.6 End stage renal disease; I13.2 Hypertensive heart and chronic kidney disease with heart failure and with stage 5 chronic kidney disease, or end stage renal disease; I50.22 Chronic systolic (congestive) heart failure; F10.10 Alcohol abuse, uncomplicated; E03.9 Hypothyroidism, unspecified; D64.9 Anemia, unspecified; F41.1 Generalized anxiety disorder; G40.909 Epilepsy, unspecified, not intractable, without status epilepticus; K70.9 Alcoholic liver disease, unspecified; Z99.2 Dependence on renal dialysis; Z91.018 Allergy to other foods; Z91.010 Allergy to peanuts; Z79.899 Other long term (current) drug therapy; Z98.891 History of uterine scar from previous surgery; K59.00 Constipation, unspecified; I16.0 Hypertensive urgency
CPT/HCPCS: 36415; 71045; 74176; 80048; 80185; 82962; 83880; 84484; 85014; 85018; 85049; 85384; 86850; 86900; 86920; 93005; 94640; 96372; 99285; J1170; J1200; J1644; J2060; J2270; J2405; J3490; J7050; J7611; P9016

== ENCOUNTER 2018-07-31 15:04 | Inpatient (IN) | payer MEDICARE, MEDICAID ==
[~2018-07-31] VITALS: Ht 170.2 cm; Wt 56.7 kg
[2018-07-31] MEDS ORDERED: MORPHINE SULFATE 4 MG/ML CPJ (NOT FOR IM USE) IV STA (15:31)
[2018-07-31] MEDS ORDERED: DIPHENHYDRAMINE 25MG CAPSULE PO ONE (15:45)
[2018-07-31 17:07] LABS: CHLORIDE 99 mEq/L (98-107); INR 1.2; PROTHROMBIN TIME 11.8 sec (9.1-11.1)
[2018-07-31 17:18] LABS: BASOPHILS % 1.2 % (0.0-2.0); EOSINOPHILS % 8.3 % (0.0-5.0); HEMATOCRIT. 25.3 % (36.0-48.0); HEMOGLOBIN. 8.6 g/dL (12.0-16.0); LYMPHOCYTES % 18.4 % (20.0-50.0); MEAN CORPUSCULAR HEMOGLOBIN 31.5 pg (28.0-32.0); MEAN CORPUSCULAR VOLUME 92.6 fL (81.0-99.0); MEAN PLATELET VOLUME 8.4 fl (7.4-10.4); NEUTROPHILS % 62.1 % (40.0-76.0); PLATELET 186 x1000/uL (130-400); RED BLOOD CELL COUNT 2.73 mill/uL (4.2-5.4); RED CELL DISTRIBUTION WIDTH 20.1 % (11.6-14.6)
[2018-07-31] MEDS ORDERED: SODIUM POLYSTYRENE SULFONATE 15 G/60 ML BOT PO ONE (17:30)
[2018-07-31] MEDS ORDERED: DEXTROSE 50% WATER 50ML SYRINGE IV ONE (17:30)
[2018-07-31] MEDS ORDERED: INSULIN REGULAR (HUMULIN R) 300UNITS/3ML IV ONE (17:30)
[2018-07-31] MEDS ORDERED: ACETAMINOPHEN 325MG TABLET PO PRN (18:00)
[2018-07-31] MEDS ORDERED: ONDANSETRON HCL 4MG/2ML INJ IV PRN (18:00)
[2018-07-31] MEDS ORDERED: IPRATROPIUM/ALBUTEROL 0.5-3(2.5)MG/3ML NEB INH PRN (18:00)
[2018-07-31] MEDS ORDERED: MAGNESIUM/ALUMINUM HYDROXIDE/SIMETHICONE 30ML UDC PO PRN (18:00)
[2018-07-31] MEDS ORDERED: GUAIFENESIN 200MG/10ML SUGAR FREE UDC PO PRN (18:00)
[2018-07-31] MEDS ORDERED: NITROGLYCERIN 0.4MG TABLET SL SL PRN (18:00)
[2018-07-31] MEDS ORDERED: DOCUSATE SODIUM 100MG CAPSULE PO PRN (18:00)
[2018-07-31] MEDS ORDERED: TRAMADOL 50MG TABLET PO PRN (18:59)
[2018-07-31] MEDS: CLONIDINE 0.1MG TABLET PO PRN (20:06)
[2018-07-31] MEDS: DIPHENHYDRAMINE 50MG/ML VIAL IV PRN (20:41)
[2018-07-31] MEDS ORDERED: SUCRALFATE 1 G/10 ML UDC PO NR (21:45)
[2018-07-31] MEDS ORDERED: FAMOTIDINE 20MG TABLET PO NR (22:00)
[2018-07-31] MEDS ORDERED: METOPROLOL TARTRATE 25MG TABLET PO SCH (22:00)
[2018-07-31 22:59] LABS: CREATINE KINASE MB FRACTION 1.9 ng/mL (0.5-3.6)
[2018-07-31] MEDS: ZOLPIDEM TARTRATE 5MG TABLET PO PRN (23:57)
[2018-08-01] VITALS (7 sets, daily range): BP systolic 116–186; BP diastolic 77–123
[2018-08-01] MEDS: DIPHENHYDRAMINE 50MG/ML VIAL IV PRN ×4 (03:27→22:47)
[2018-08-01] MEDS: CLONIDINE 0.1MG TABLET PO PRN ×2 (03:31→21:04)
[2018-08-01] MEDS: SUCRALFATE 1 G/10 ML UDC PO SCH ×4 (06:09→21:03)
[2018-08-01] MEDS: SEVELAMER CARBONATE 800 MG TABLET PO SCH ×3 (07:40→17:09)
[2018-08-01] MEDS: METOPROLOL TARTRATE 25MG TABLET PO SCH ×2 (08:49→21:04)
[2018-08-01] MEDS: FOLIC ACID/VITAMIN B COMP W-C TABLET PO SCH (08:49)
[2018-08-01] MEDS: FAMOTIDINE 20MG TABLET PO SCH (08:49)
[2018-08-01 09:34] LABS: CREATINE KINASE MB FRACTION 2.3 ng/mL (0.5-3.6)
[2018-08-01] MEDS: LORAZEPAM 2MG/ML CPJ IV PRN ×2 (10:11→16:34)
[2018-08-01] MEDS: ENOXAPARIN 30MG/0.3ML SYR SUBCUT SCH (10:11)
[2018-08-01] MEDS ORDERED: HEPARIN SODIUM 1,000 UNIT/1ML VIAL IV SCH (15:15)
[2018-08-01] MEDS: PHENYTOIN SODIUM EXTENDED 100MG CAPSULE PO SCH (21:04)
[2018-08-01] MEDS: ZOLPIDEM TARTRATE 5MG TABLET PO PRN (22:46)
[2018-08-02] VITALS (9 sets, daily range): BP systolic 119–158; BP diastolic 71–98
[2018-08-02] MEDS: SUCRALFATE 1 G/10 ML UDC PO SCH ×4 (05:59→21:42)
[2018-08-02] MEDS: PHENYTOIN SODIUM EXTENDED 100MG CAPSULE PO SCH ×3 (06:00→21:42)
[2018-08-02] MEDS: LORAZEPAM 2MG/ML CPJ IV PRN ×3 (06:10→20:17)
[2018-08-02] MEDS: DIPHENHYDRAMINE 50MG/ML VIAL IV PRN ×3 (06:10→23:45)
[2018-08-02 07:08] LABS: HEMATOCRIT. 23.7 % (36.0-48.0); HEMOGLOBIN. 7.9 g/dL (12.0-16.0); MEAN CORPUSCULAR HEMOGLOBIN 31.1 pg (28.0-32.0); MEAN CORPUSCULAR VOLUME 92.7 fL (81.0-99.0); PLATELET 129 x1000/uL (130-400); RED BLOOD CELL COUNT 2.55 mill/uL (4.2-5.4); RED CELL DISTRIBUTION WIDTH 20.3 % (11.6-14.6)
[2018-08-02 09:12] LABS: PHOSPHORUS 2.8 mg/dL (2.5-4.9)
[2018-08-02] MEDS: ENOXAPARIN 30MG/0.3ML SYR SUBCUT SCH (09:15)
[2018-08-02] MEDS: FOLIC ACID/VITAMIN B COMP W-C TABLET PO SCH (09:15)
[2018-08-02] MEDS: FAMOTIDINE 20MG TABLET PO SCH (09:16)
[2018-08-02] MEDS: METOPROLOL TARTRATE 25MG TABLET PO SCH ×2 (09:16→21:43)
[2018-08-02] MEDS: SEVELAMER CARBONATE 800 MG TABLET PO SCH ×3 (09:16→17:40)
[2018-08-02 11:31] LABS: PLATELET ESTIMATE SLIGHTLY DECREASED
[2018-08-02] MEDS ORDERED: POTASSIUM CHLORIDE 20MEQ TABLET SR PO SCH (12:00)
[2018-08-02] MEDS ORDERED: MORPHINE SULFATE 4 MG/ML CPJ (NOT FOR IM USE) IV PRN (17:45)
[2018-08-02] MEDS ORDERED: EPOETIN ALFA 10000UNITS/ML VIAL SUBCUT SCH (21:00)
[2018-08-02] MEDS: ZOLPIDEM TARTRATE 5MG TABLET PO PRN (21:49)
[2018-08-03] VITALS: BP 160/116
[2018-08-03] MEDS: LORAZEPAM 2MG/ML CPJ IV PRN ×2 (02:26→08:50)
[2018-08-03 04:00] VITALS: BP 151/107
[2018-08-03] MEDS: DIPHENHYDRAMINE 50MG/ML VIAL IV PRN ×2 (05:49→09:34)
[2018-08-03] MEDS: PHENYTOIN SODIUM EXTENDED 100MG CAPSULE PO SCH (05:49)
[2018-08-03] MEDS: SUCRALFATE 1 G/10 ML UDC PO SCH (05:49)
[2018-08-03 07:39] LABS: BASOPHILS % 1.4 % (0.0-2.0); EOSINOPHILS % 8.9 % (0.0-5.0); HEMOGLOBIN. 8.8 g/dL (12.0-16.0); LYMPHOCYTES % 30.9 % (20.0-50.0); MEAN CORPUSCULAR HEMOGLOBIN 30.9 pg (28.0-32.0); MEAN CORPUSCULAR VOLUME 91.5 fL (81.0-99.0); MEAN PLATELET VOLUME 8.5 fl (7.4-10.4); MONOCYTES % 14.3 % (2.0-8.0); NEUTROPHILS % 44.5 % (40.0-76.0); PLATELET 126 x1000/uL (130-400); RED BLOOD CELL COUNT 2.84 mill/uL (4.2-5.4); RED CELL DISTRIBUTION WIDTH 19.7 % (11.6-14.6)
[2018-08-03] MEDS: SEVELAMER CARBONATE 800 MG TABLET PO SCH (07:40)
[2018-08-03] MEDS: FAMOTIDINE 20MG TABLET PO SCH (07:48)
[2018-08-03] MEDS: FOLIC ACID/VITAMIN B COMP W-C TABLET PO SCH (07:48)
[2018-08-03] MEDS: METOPROLOL TARTRATE 25MG TABLET PO SCH (07:48)
[2018-08-03 08:00] VITALS: BP 161/114
[2018-08-03] MEDS ORDERED: HEPARIN SODIUM 1,000 UNIT/1ML VIAL IV NR (08:45)
[2018-08-03 12:05] VITALS: BP 150/83
== END 2018-08-03 12:20 | disposition home or self-care (01) | DRG 291 ==
LOC: ER 15:24 → 8WST 17:29 → EDBEDREQTM 17:39 → EDBEDREQ 17:39 → ENRESERV 08-01 00:59
PROVIDERS: ADMIT Internal Medicine; ATTEND Internal Medicine
PROC: 30233N1 Transfusion of Nonautologous Red Blood Cells into Peripheral Vein, Percutaneous Approach (ICD-10-PCS; principal; 2018-08-02)
PROC: 5A1D70Z Performance of Urinary Filtration, Intermittent, Less than 6 Hours Per Day (ICD-10-PCS; 2018-08-02)
DX: I13.2 Hypertensive heart and chronic kidney disease with heart failure and with stage 5 chronic kidney disease, or end stage renal disease (principal); I50.33 Acute on chronic diastolic (congestive) heart failure; N18.6 End stage renal disease; E87.2 Acidosis; E83.51 Hypocalcemia; F10.10 Alcohol abuse, uncomplicated; R74.0 Nonspecific elevation of levels of transaminase and lactic acid dehydrogenase [LDH]; E87.5 Hyperkalemia; R74.8 Abnormal levels of other serum enzymes; D64.9 Anemia, unspecified; E03.9 Hypothyroidism, unspecified; R10.9 Unspecified abdominal pain; G40.909 Epilepsy, unspecified, not intractable, without status epilepticus; Z99.2 Dependence on renal dialysis; Z91.15 Patient's noncompliance with renal dialysis; Z91.14 Patient's other noncompliance with medication regimen; Z91.018 Allergy to other foods; Z79.899 Other long term (current) drug therapy; Z71.41 Alcohol abuse counseling and surveillance of alcoholic
CPT/HCPCS: 36415; 71045; 80048; 80051; 80185; 82550; 82553; 83605; 83880; 84100; 84484; 86850; 86900; 86920; 93005; 93970; 96374; 96375; 99291; C1893; J0885; J1200; J1644; J1650; J1815; J2060; J2270; J7040; P9016; Q0163

== ENCOUNTER 2018-08-11 16:31 | Inpatient (IN) | payer MEDICARE, MEDICAID ==
[~2018-08-11] VITALS: Ht 170.2 cm; Wt 57.7 kg
[2018-08-11] MEDS ORDERED: HYDROCODONE/ACETAMINOPHEN 5/325MG TABLET PO NR (18:45)
[2018-08-11] MEDS ORDERED: SODIUM CHLORIDE 0.9% 250 ML IV ONE (18:45)
[2018-08-11 19:25] LABS: HEMATOCRIT. 25.8 % (36.0-48.0); HEMOGLOBIN. 8.4 g/dL (12.0-16.0); MEAN CORPUSCULAR HEMOGLOBIN 31.6 pg (28.0-32.0); MEAN CORPUSCULAR VOLUME 97.1 fL (81.0-99.0); MEAN PLATELET VOLUME 7.2 fl (7.4-10.4); PLATELET 184 x1000/uL (130-400); RED BLOOD CELL COUNT 2.66 mill/uL (4.2-5.4); RED CELL DISTRIBUTION WIDTH 19.1 % (11.6-14.6)
[2018-08-11 19:27] LABS: CHLORIDE 95 mEq/L (98-107)
[2018-08-11 19:52] LABS: PLATELET ESTIMATE NORMAL
[2018-08-11] MEDS ORDERED: ASPIRIN 325MG EC TABLET PO ONE (20:00)
[2018-08-11] MEDS ORDERED: CLONIDINE 0.2MG TABLET PO PRN (20:00)
[2018-08-11] MEDS ORDERED: SODIUM CHLORIDE 0.9% 1,000 ML IV ONE (20:00)
[2018-08-11 20:20] LABS: PHOSPHORUS 6.7 mg/dL (2.5-4.9)
[2018-08-11 20:28] LABS: BG BASE EXCESS -18.2 mmol/L (-2.0-2.0); BG CARBOXYHEMOGLOBIN 0.7 % (0.5-1.5); BG DEOXYHEMOGLOBIN 4.6 % (0.0-5.0); BG FRACTION INSPIRED OXYGEN 21; BG HCO3 ACT 9.6 mmol/L (22.0-26.0); BG METHEMOGLOBIN 0.5 % (0.0-1.5); BG OXYGEN SATURATION 95.3 % (92.0-98.5); BG OXYHEMOGLOBIN 94.2 % (94.0-97.0); BG PCO2 29.4 mmHg (35.0-45.0); BG PH 7.131 (7.350-7.450); BG SAMPLE SITE RIGHT RADIAL; BG TOTAL HEMOGLOBIN 15.4 g/dL (12.0-18.0); BG VENT MODE ROOM AIR
[2018-08-11] MEDS ORDERED: ACETAMINOPHEN 325MG TABLET PO PRN (21:15)
[2018-08-11] MEDS ORDERED: GUAIFENESIN 200MG/10ML SUGAR FREE UDC PO PRN (21:15)
[2018-08-11] MEDS ORDERED: DOCUSATE SODIUM 100MG CAPSULE PO PRN (21:15)
[2018-08-11] MEDS ORDERED: IPRATROPIUM/ALBUTEROL 0.5-3(2.5)MG/3ML NEB INH PRN (21:15)
[2018-08-11] MEDS ORDERED: MAGNESIUM/ALUMINUM HYDROXIDE/SIMETHICONE 30ML UDC PO PRN (21:15)
[2018-08-11] MEDS ORDERED: ONDANSETRON HCL 4MG/2ML INJ IV PRN (21:15)
[2018-08-11] MEDS ORDERED: SODIUM BICARBONATE 8.4% 1 MEQ/ML 50ML SYR IV NR (22:15)
[2018-08-11] MEDS: DIPHENHYDRAMINE 50MG/ML VIAL IV PRN (23:28)
[2018-08-11] MEDS: MORPHINE SULFATE 4 MG/ML CPJ (NOT FOR IM USE) IV PRN (23:28)
[2018-08-11 23:39] LABS: CREATINE KINASE MB FRACTION 2.7 ng/mL (0.5-3.6)
[2018-08-11 23:48] LABS: PHOSPHORUS 6.3 mg/dL (2.5-4.9)
[2018-08-12] VITALS (17 sets, daily range): BP systolic 107–192; BP diastolic 60–115
[2018-08-12] MEDS: LORAZEPAM 2MG/ML CPJ IV PRN ×5 (01:09→21:44)
[2018-08-12 03:21] LABS: HEMATOCRIT. 23.7 % (36.0-48.0); HEMOGLOBIN. 7.9 g/dL (12.0-16.0); MEAN CORPUSCULAR HEMOGLOBIN 31.7 pg (28.0-32.0); MEAN CORPUSCULAR VOLUME 95.3 fL (81.0-99.0); MEAN PLATELET VOLUME 6.9 fl (7.4-10.4); PLATELET 159 x1000/uL (130-400); RED BLOOD CELL COUNT 2.49 mill/uL (4.2-5.4); RED CELL DISTRIBUTION WIDTH 19.2 % (11.6-14.6)
[2018-08-12] MEDS: DIPHENHYDRAMINE 50MG/ML VIAL IV PRN ×4 (03:21→20:11)
[2018-08-12] MEDS: MORPHINE SULFATE 4 MG/ML CPJ (NOT FOR IM USE) IV PRN ×2 (03:22→07:56)
[2018-08-12 03:33] LABS: CHLORIDE 95 mEq/L (98-107)
[2018-08-12 03:43] LABS: CREATINE KINASE 82 IU/L (26-192); T4 FREE 0.47 ng/dL (0.76-1.46)
[2018-08-12 03:45] LABS: CREATINE KINASE MB FRACTION 3.1 ng/mL (0.5-3.6)
[2018-08-12] MEDS ORDERED: DEXTROSE 50% WATER 50ML SYRINGE IV ONE (04:15)
[2018-08-12] MEDS ORDERED: DEXTROSE 50% WATER 50ML SYRINGE IV NR (05:15)
[2018-08-12] MEDS ORDERED: DEXTROSE 50% WATER 50ML SYRINGE IV PRN (05:30)
[2018-08-12] MEDS: SODIUM CHLORIDE 0.9% INJ 3ML FLUSH IVF SCH ×3 (06:02→21:46)
[2018-08-12] MEDS: BLOOD SUGAR DIAGNOSTIC STRIP TEST SCH ×4 (06:45→20:22)
[2018-08-12] MEDS: INSULIN LISPRO 100 UNITS/ML SUBCUT SCH ×4 (07:20→20:22)
[2018-08-12] MEDS: ASPIRIN 81MG EC TABLET PO SCH (09:00)
[2018-08-12] MEDS: ENOXAPARIN 30MG/0.3ML SYR SUBCUT SCH (09:00)
[2018-08-12 09:04] LABS: PHOSPHORUS 6.5 mg/dL (2.5-4.9)
[2018-08-12] MEDS ORDERED: DIPHENHYDRAMINE 50MG/ML VIAL IV NR (09:52)
[2018-08-12 09:53] LABS: PLATELET ESTIMATE NORMAL
[2018-08-12] MEDS: HYDROMORPHONE HCL/PF 2MG/ML CPJ IV PRN ×2 (10:24→18:48)
[2018-08-12] MEDS: CLONIDINE 0.1MG TABLET PO PRN ×2 (14:14→21:42)
[2018-08-12 16:19] LABS: CREATINE KINASE MB FRACTION 3.3 ng/mL (0.5-3.6)
[2018-08-13] VITALS (9 sets, daily range): BP systolic 151–188; BP diastolic 86–116
[2018-08-13 00:34] LABS: CREATINE KINASE MB FRACTION 2.6 ng/mL (0.5-3.6)
[2018-08-13] MEDS: HYDROMORPHONE HCL/PF 2MG/ML CPJ IV PRN ×4 (00:47→23:20)
[2018-08-13] MEDS: DIPHENHYDRAMINE 50MG/ML VIAL IV PRN ×4 (02:17→22:50)
[2018-08-13] MEDS: LORAZEPAM 2MG/ML CPJ IV PRN ×3 (04:04→21:23)
[2018-08-13] MEDS: SODIUM CHLORIDE 0.9% INJ 3ML FLUSH IVF SCH ×3 (06:14→22:42)
[2018-08-13] MEDS: BLOOD SUGAR DIAGNOSTIC STRIP TEST SCH ×4 (06:14→21:14)
[2018-08-13] MEDS: INSULIN LISPRO 100 UNITS/ML SUBCUT SCH ×4 (06:14→21:00)
[2018-08-13 07:40] LABS: CREATINE KINASE MB FRACTION 1.9 ng/mL (0.5-3.6)
[2018-08-13] MEDS: CLONIDINE 0.1MG TABLET PO PRN ×2 (09:13→22:50)
[2018-08-13] MEDS: ENOXAPARIN 30MG/0.3ML SYR SUBCUT SCH ×2 (09:13→09:21)
[2018-08-13] MEDS: ASPIRIN 81MG EC TABLET PO SCH ×2 (09:14→09:21)
[2018-08-13 14:56] LABS: BASOPHILS % 1.3 % (0.0-2.0); EOSINOPHILS % 6.3 % (0.0-5.0); HEMATOCRIT. 24.5 % (36.0-48.0); HEMOGLOBIN. 8.3 g/dL (12.0-16.0); LYMPHOCYTES % 15.1 % (20.0-50.0); MEAN CORPUSCULAR HEMOGLOBIN 31.8 pg (28.0-32.0); MEAN CORPUSCULAR VOLUME 93.9 fL (81.0-99.0); MEAN PLATELET VOLUME 7.5 fl (7.4-10.4); MONOCYTES % 13.9 % (2.0-8.0); NEUTROPHILS % 63.4 % (40.0-76.0); PLATELET 113 x1000/uL (130-400); RED BLOOD CELL COUNT 2.61 mill/uL (4.2-5.4); RED CELL DISTRIBUTION WIDTH 19.7 % (11.6-14.6)
[2018-08-13 15:02] LABS: INR 1.2; PARTIAL THROMBOPLASTIN TIME 30.4 sec (23.4-31.0); PROTHROMBIN TIME 11.6 sec (9.1-11.1)
[2018-08-13] MEDS ORDERED: EPOETIN ALFA 10000UNITS/ML VIAL SUBCUT SCH (21:00)
[2018-08-13] MEDS: HYDRALAZINE 20MG/ML VIAL IV PRN (21:23)
[2018-08-14] VITALS (12 sets, daily range): BP systolic 154–180; BP diastolic 99–131
[2018-08-14] MEDS: LORAZEPAM 2MG/ML CPJ IV PRN ×4 (01:38→20:39)
[2018-08-14] MEDS: DIPHENHYDRAMINE 50MG/ML VIAL IV PRN ×3 (03:15→14:31)
[2018-08-14] MEDS: SODIUM CHLORIDE 0.9% INJ 3ML FLUSH IVF SCH ×3 (05:26→20:41)
[2018-08-14] MEDS: HYDROMORPHONE HCL/PF 2MG/ML CPJ IV PRN ×2 (05:47→13:18)
[2018-08-14] MEDS: HYDRALAZINE 20MG/ML VIAL IV PRN ×2 (05:49→17:25)
[2018-08-14] MEDS: BLOOD SUGAR DIAGNOSTIC STRIP TEST SCH ×4 (05:58→20:40)
[2018-08-14] MEDS: INSULIN LISPRO 100 UNITS/ML SUBCUT SCH ×4 (07:17→20:41)
[2018-08-14 07:31] LABS: HEMATOCRIT. 23.4 % (36.0-48.0); HEMOGLOBIN. 7.8 g/dL (12.0-16.0); MEAN CORPUSCULAR HEMOGLOBIN 31.4 pg (28.0-32.0); RED BLOOD CELL COUNT 2.49 mill/uL (4.2-5.4); RED CELL DISTRIBUTION WIDTH 19.7 % (11.6-14.6)
[2018-08-14] MEDS: CLONIDINE 0.1MG TABLET PO PRN ×2 (14:29→20:40)
[2018-08-15] VITALS (9 sets, daily range): BP systolic 129–153; BP diastolic 83–100
[2018-08-15] MEDS: BLOOD SUGAR DIAGNOSTIC STRIP TEST SCH ×2 (05:54→11:23)
[2018-08-15] MEDS: SODIUM CHLORIDE 0.9% INJ 3ML FLUSH IVF SCH ×2 (05:56→13:25)
[2018-08-15] MEDS: INSULIN LISPRO 100 UNITS/ML SUBCUT SCH ×2 (05:59→12:24)
[2018-08-15] MEDS: ENOXAPARIN 30MG/0.3ML SYR SUBCUT SCH (08:09)
[2018-08-15] MEDS: ASPIRIN 81MG EC TABLET PO SCH (08:09)
[2018-08-15] MEDS: DIPHENHYDRAMINE 50MG/ML VIAL IV PRN ×2 (08:09→12:23)
[2018-08-15] MEDS: HYDRALAZINE 20MG/ML VIAL IV PRN (08:10)
[2018-08-15] MEDS: HYDROCODONE/ACETAMINOPHEN 10/325MG TABLET PO PRN ×2 (08:11→12:24)
[2018-08-15] MEDS: LORAZEPAM 2MG/ML CPJ IV PRN (11:19)
[2018-08-15] MEDS: CLONIDINE 0.1MG TABLET PO PRN (12:24)
== END 2018-08-15 15:52 | disposition home or self-care (01) | DRG 640 ==
LOC: ER 16:31 → 3WST 20:08 → EDBEDREQ 20:10 → EDBEDREQTM 20:10 → EDBEDREQSVC 20:10 → ENRESERV 23:29
PROVIDERS: ADMIT Internal Medicine; ATTEND Internal Medicine
PROC: 5A1D70Z Performance of Urinary Filtration, Intermittent, Less than 6 Hours Per Day (ICD-10-PCS; 2018-08-12)
PROC: 5A1D70Z Performance of Urinary Filtration, Intermittent, Less than 6 Hours Per Day (ICD-10-PCS; principal; 2018-08-13)
DX: E87.70 Fluid overload, unspecified (principal); G92 Toxic encephalopathy; N18.6 End stage renal disease; J96.00 Acute respiratory failure, unspecified whether with hypoxia or hypercapnia; I50.22 Chronic systolic (congestive) heart failure; R18.8 Other ascites; E46 Unspecified protein-calorie malnutrition; I13.2 Hypertensive heart and chronic kidney disease with heart failure and with stage 5 chronic kidney disease, or end stage renal disease; I42.9 Cardiomyopathy, unspecified; Z68.1 Body mass index [BMI] 19.9 or less, adult; E87.2 Acidosis; E03.9 Hypothyroidism, unspecified; E11.22 Type 2 diabetes mellitus with diabetic chronic kidney disease; F10.10 Alcohol abuse, uncomplicated; G89.4 Chronic pain syndrome; D63.8 Anemia in other chronic diseases classified elsewhere; K72.90 Hepatic failure, unspecified without coma; I25.10 Atherosclerotic heart disease of native coronary artery without angina pectoris; E11.649 Type 2 diabetes mellitus with hypoglycemia without coma; E78.5 Hyperlipidemia, unspecified; F41.9 Anxiety disorder, unspecified; G40.909 Epilepsy, unspecified, not intractable, without status epilepticus; I95.9 Hypotension, unspecified; R10.9 Unspecified abdominal pain; M54.2 Cervicalgia; Z79.899 Other long term (current) drug therapy; Z79.890 Hormone replacement therapy; Z87.891 Personal history of nicotine dependence; Z91.19 Patient's noncompliance with other medical treatment and regimen; Z99.2 Dependence on renal dialysis; Z91.018 Allergy to other foods
CPT/HCPCS: 36415; 36600; 71045; 74176; 80048; 80061; 82375; 82550; 82553; 82805; 82962; 83036; 83605; 83735; 83880; 84100; 84439; 84443; 84484; 85379; 93005; 93306; 93970; 96361; 96374; 99291; J0360; J0885; J1170; J1200; J1650; J1815; J2060; J2270; J2405; J3490; J7030

== ENCOUNTER 2018-08-24 13:44 | Inpatient (IN) | payer MEDICARE, MEDICAID ==
[~2018-08-24] VITALS: Ht 170.2 cm; Wt 56.7 kg
[2018-08-25] VITALS (7 sets, daily range): BP systolic 140–177; BP diastolic 58–93
[2018-08-25] MEDS ORDERED: MORPHINE SULFATE 4 MG/ML CPJ (NOT FOR IM USE) IV STA (01:32)
[2018-08-25] MEDS ORDERED: ONDANSETRON HCL 4MG/2ML INJ IV STA (01:32)
[2018-08-25 02:11] LABS: CHLORIDE 93 mEq/L (98-107)
[2018-08-25 02:13] LABS: HEMATOCRIT. 22.4 % (36.0-48.0); HEMOGLOBIN. 7.2 g/dL (12.0-16.0); MEAN CORPUSCULAR HEMOGLOBIN 31.6 pg (28.0-32.0); MEAN CORPUSCULAR VOLUME 97.8 fL (81.0-99.0); PLATELET 201 x1000/uL (130-400); RED BLOOD CELL COUNT 2.29 mill/uL (4.2-5.4); RED CELL DISTRIBUTION WIDTH 18.7 % (11.6-14.6)
[2018-08-25 02:15] LABS: INR 1.2; PROTHROMBIN TIME 11.6 sec (9.1-11.1)
[2018-08-25 03:08] LABS: PLATELET ESTIMATE NORMAL
[2018-08-25] MEDS ORDERED: LORATADINE 10MG TABLET PO SCH ×2 (03:15)
[2018-08-25] MEDS ORDERED: HYDROMORPHONE HCL/PF 2MG/ML CPJ IV PRN (08:45)
[2018-08-25] MEDS ORDERED: DIPHENHYDRAMINE 50MG/ML VIAL IV NR (08:45)
[2018-08-25] MEDS ORDERED: DIPHENHYDRAMINE 50MG/ML VIAL IV PRN (08:45)
[2018-08-25] MEDS ORDERED: MAGNESIUM/ALUMINUM HYDROXIDE/SIMETHICONE 30ML UDC PO PRN (10:00)
[2018-08-25] MEDS ORDERED: ONDANSETRON HCL 4MG/2ML INJ IV PRN (10:00)
[2018-08-25] MEDS ORDERED: GUAIFENESIN 200MG/10ML SUGAR FREE UDC PO PRN (10:00)
[2018-08-25] MEDS ORDERED: DOCUSATE SODIUM 100MG CAPSULE PO PRN (10:00)
[2018-08-25] MEDS ORDERED: DEXTROSE 50% WATER 50ML SYRINGE IV PRN (10:00)
[2018-08-25] MEDS ORDERED: HYDROCODONE/ACETAMINOPHEN 10/325MG TABLET PO PRN (10:00)
[2018-08-25] MEDS ORDERED: IPRATROPIUM/ALBUTEROL 0.5-3(2.5)MG/3ML NEB INH PRN (10:00)
[2018-08-25] MEDS ORDERED: ACETAMINOPHEN 325MG TABLET PO PRN (10:00)
[2018-08-25] MEDS: BLOOD SUGAR DIAGNOSTIC STRIP TEST SCH ×3 (12:45→20:12)
[2018-08-25] MEDS: INSULIN LISPRO 100 UNITS/ML SUBCUT SCH ×3 (13:10→20:12)
[2018-08-25 15:53] LABS: CREATINE KINASE 121 IU/L (26-192)
[2018-08-25 15:54] LABS: CREATINE KINASE MB FRACTION 3.3 ng/mL (0.5-3.6)
[2018-08-25] MEDS: HYDROMORPHONE HCL/PF 2MG/ML CPJ IV PRN ×2 (16:37→23:18)
[2018-08-25] MEDS: SODIUM CHLORIDE 0.9% INJ 3ML FLUSH IVF SCH ×2 (16:37→20:13)
[2018-08-25] MEDS: DIPHENHYDRAMINE 50MG/ML VIAL IV PRN ×2 (18:08→21:12)
[2018-08-25] MEDS: LORAZEPAM 2MG/ML CPJ IV PRN (20:07)
[2018-08-25] MEDS: EPOETIN ALFA 10000UNITS/ML VIAL SUBCUT SCH (23:19)
[2018-08-26] VITALS: BP 130/60
[2018-08-26] MEDS: LORAZEPAM 2MG/ML CPJ IV PRN ×4 (00:58→21:14)
[2018-08-26 01:32] LABS: CREATINE KINASE MB FRACTION 2.1 ng/mL (0.5-3.6)
[2018-08-26] MEDS: HYDROMORPHONE HCL/PF 2MG/ML CPJ IV PRN ×5 (03:13→22:29)
[2018-08-26 04:00] VITALS: BP 136/56
[2018-08-26] MEDS: SODIUM CHLORIDE 0.9% INJ 3ML FLUSH IVF SCH ×3 (06:00→21:14)
[2018-08-26 07:28] LABS: HEMATOCRIT. 23.6 % (36.0-48.0); HEMOGLOBIN. 8.1 g/dL (12.0-16.0); MEAN CORPUSCULAR HEMOGLOBIN 31.4 pg (28.0-32.0); MEAN CORPUSCULAR VOLUME 91.5 fL (81.0-99.0); MEAN PLATELET VOLUME 7.5 fl (7.4-10.4); RED BLOOD CELL COUNT 2.58 mill/uL (4.2-5.4); RED CELL DISTRIBUTION WIDTH 17.3 % (11.6-14.6)
[2018-08-26] MEDS: BLOOD SUGAR DIAGNOSTIC STRIP TEST SCH ×4 (07:29→21:14)
[2018-08-26] MEDS: INSULIN LISPRO 100 UNITS/ML SUBCUT SCH ×4 (07:30→21:00)
[2018-08-26 07:59] LABS: CHLORIDE 94 mEq/L (98-107)
[2018-08-26 08:00] VITALS: BP 178/109
[2018-08-26 08:07] LABS: LDL CHOLESTEROL 100 mg/dL (5-100)
[2018-08-26 08:09] LABS: HDL CHOLESTEROL 52 mg/dL (40-59); T4 FREE 0.67 ng/dL (0.76-1.46)
[2018-08-26] MEDS: HYDRALAZINE 20MG/ML VIAL IV PRN (08:10)
[2018-08-26 08:26] LABS: PLATELET ESTIMATE SLIGHTLY DECREASED
[2018-08-26 08:27] LABS: PLATELET 126 x1000/uL (130-400)
[2018-08-26 12:00] VITALS: BP 156/96
[2018-08-26] MEDS: DIPHENHYDRAMINE 50MG/ML VIAL IV PRN ×2 (14:34→20:14)
[2018-08-26 16:00] VITALS: BP 151/98
[2018-08-26 20:00] VITALS: BP 154/101
[2018-08-26] MEDS: CLONIDINE 0.1MG TABLET PO PRN (21:27)
[2018-08-27] VITALS (7 sets, daily range): BP systolic 132–172; BP diastolic 87–112
[2018-08-27] MEDS: DIPHENHYDRAMINE 50MG/ML VIAL IV PRN ×4 (03:30→23:24)
[2018-08-27] MEDS: HYDROMORPHONE HCL/PF 2MG/ML CPJ IV PRN ×5 (03:30→21:04)
[2018-08-27] MEDS: SODIUM CHLORIDE 0.9% INJ 3ML FLUSH IVF SCH ×3 (04:18→20:39)
[2018-08-27] MEDS: BLOOD SUGAR DIAGNOSTIC STRIP TEST SCH ×4 (05:09→20:38)
[2018-08-27] MEDS: LORAZEPAM 2MG/ML CPJ IV PRN ×3 (06:04→20:33)
[2018-08-27] MEDS: CLONIDINE 0.1MG TABLET PO PRN (06:05)
[2018-08-27] MEDS: INSULIN LISPRO 100 UNITS/ML SUBCUT SCH ×4 (07:14→20:39)
[2018-08-27 08:11] LABS: BASOPHILS % 2.2 % (0.0-2.0); EOSINOPHILS % 6.7 % (0.0-5.0); HEMATOCRIT. 29.5 % (36.0-48.0); LYMPHOCYTES % 18.7 % (20.0-50.0); MEAN CORPUSCULAR HEMOGLOBIN 31.4 pg (28.0-32.0); MEAN PLATELET VOLUME 7.9 fl (7.4-10.4); MONOCYTES % 12.5 % (2.0-8.0); NEUTROPHILS % 59.9 % (40.0-76.0); PLATELET 130 x1000/uL (130-400); RED BLOOD CELL COUNT 3.17 mill/uL (4.2-5.4); RED CELL DISTRIBUTION WIDTH 17.4 % (11.6-14.6)
[2018-08-27] MEDS: HYDRALAZINE 20MG/ML VIAL IV PRN (16:24)
[2018-08-27] MEDS: EPOETIN ALFA 10000UNITS/ML VIAL SUBCUT SCH (20:33)
[2018-08-28 00:05] VITALS: BP 142/85
[2018-08-28] MEDS: HYDROMORPHONE HCL/PF 2MG/ML CPJ IV PRN ×2 (00:32→04:13)
[2018-08-28] MEDS: DIPHENHYDRAMINE 50MG/ML VIAL IV PRN (03:40)
[2018-08-28 04:00] VITALS: BP 132/59
[2018-08-28] MEDS: SODIUM CHLORIDE 0.9% INJ 3ML FLUSH IVF SCH (05:35)
[2018-08-28] MEDS: LORAZEPAM 2MG/ML CPJ IV PRN (06:45)
[2018-08-28] MEDS: BLOOD SUGAR DIAGNOSTIC STRIP TEST SCH (07:18)
[2018-08-28] MEDS: INSULIN LISPRO 100 UNITS/ML SUBCUT SCH (07:18)
[2018-08-28 09:12] VITALS: BP 127/94
== END 2018-08-28 11:23 | disposition home or self-care (01) | DRG 640 ==
LOC: ER 13:44 → 7WST 08-25 02:58 → EDBEDREQ 08-25 03:02 → ENRESERV 08-25 07:33
PROVIDERS: ADMIT Internal Medicine; ATTEND Internal Medicine
PROC: 30233N1 Transfusion of Nonautologous Red Blood Cells into Peripheral Vein, Percutaneous Approach (ICD-10-PCS; principal; 2018-08-25)
PROC: 5A1D70Z Performance of Urinary Filtration, Intermittent, Less than 6 Hours Per Day (ICD-10-PCS; 2018-08-25)
PROC: 5A1D70Z Performance of Urinary Filtration, Intermittent, Less than 6 Hours Per Day (ICD-10-PCS; 2018-08-27)
DX: E87.5 Hyperkalemia (principal); N18.6 End stage renal disease; I13.2 Hypertensive heart and chronic kidney disease with heart failure and with stage 5 chronic kidney disease, or end stage renal disease; R18.8 Other ascites; E87.2 Acidosis; D64.9 Anemia, unspecified; E05.90 Thyrotoxicosis, unspecified without thyrotoxic crisis or storm; E03.9 Hypothyroidism, unspecified; I50.9 Heart failure, unspecified; K70.40 Alcoholic hepatic failure without coma; F10.10 Alcohol abuse, uncomplicated; F17.200 Nicotine dependence, unspecified, uncomplicated; Z79.890 Hormone replacement therapy; Z79.899 Other long term (current) drug therapy; Z91.19 Patient's noncompliance with other medical treatment and regimen; Z99.2 Dependence on renal dialysis; Z91.018 Allergy to other foods; Z79.2 Long term (current) use of antibiotics; Z79.01 Long term (current) use of anticoagulants
CPT/HCPCS: 36415; 71045; 80048; 80061; 82550; 82553; 82962; 84439; 84443; 84484; 86850; 86900; 86920; 93005; 93970; 96374; 96375; 99285; C1893; J0360; J0885; J1170; J1200; J1815; J2060; J2270; J2405; J7050; P9016

== ENCOUNTER 2018-09-10 13:11 | Inpatient (IN) | payer MEDICARE, MEDICAID ==
[~2018-09-10] VITALS: Ht 170.2 cm; Wt 56.9 kg
[2018-09-10] MEDS ORDERED: DIPHENHYDRAMINE 25MG CAPSULE PO ONE (14:30)
[2018-09-10] MEDS ORDERED: MORPHINE SULFATE 4 MG/ML CPJ (NOT FOR IM USE) IV ONE (14:30)
[2018-09-10] MEDS ORDERED: MORPHINE SULFATE 10 MG/ML CPJ IM ONE (15:00)
[2018-09-10 15:43] LABS: BASOPHILS % 1.5 % (0.0-2.0); EOSINOPHILS % 6.8 % (0.0-5.0); HEMATOCRIT. 23.1 % (36.0-48.0); HEMOGLOBIN. 7.8 g/dL (12.0-16.0); LYMPHOCYTES % 19.6 % (20.0-50.0); MEAN CORPUSCULAR HEMOGLOBIN 32.2 pg (28.0-32.0); MEAN CORPUSCULAR VOLUME 94.7 fL (81.0-99.0); MEAN PLATELET VOLUME 7.7 fl (7.4-10.4); MONOCYTES % 9.5 % (2.0-8.0); NEUTROPHILS % 62.6 % (40.0-76.0); PLATELET 78 x1000/uL (130-400); RED BLOOD CELL COUNT 2.44 mill/uL (4.2-5.4); RED CELL DISTRIBUTION WIDTH 16.5 % (11.6-14.6)
[2018-09-10 15:45] LABS: CHLORIDE 94 mEq/L (98-107)
[2018-09-10 15:52] LABS: PROTHROMBIN TIME 10.8 sec (9.6-11.0)
[2018-09-10] MEDS ORDERED: DEXTROSE 50% WATER 50ML SYRINGE IV ONE (16:00)
[2018-09-10] MEDS ORDERED: ALBUTEROL (0.083%) 2.5MG/3ML NEB HHN SCH (16:00)
[2018-09-10] MEDS ORDERED: INSULIN REGULAR (HUMULIN R) 300UNITS/3ML SUBCUT ONE (16:00)
[2018-09-10] MEDS ORDERED: SODIUM POLYSTYRENE SULFONATE 15 G/60 ML BOT PO ONE (16:00)
[2018-09-10] MEDS ORDERED: TRAMADOL 50MG TABLET PO PRN (17:45)
[2018-09-10] MEDS ORDERED: DOCUSATE SODIUM 100MG CAPSULE PO PRN (17:45)
[2018-09-10] MEDS ORDERED: MAGNESIUM/ALUMINUM HYDROXIDE/SIMETHICONE 30ML UDC PO PRN (17:45)
[2018-09-10] MEDS ORDERED: NITROGLYCERIN 0.4MG TABLET SL SL PRN (17:45)
[2018-09-10] MEDS ORDERED: IPRATROPIUM/ALBUTEROL 0.5-3(2.5)MG/3ML NEB INH PRN (17:45)
[2018-09-10] MEDS ORDERED: ENOXAPARIN 40MG/0.4ML SYR SUBCUT SCH (17:45)
[2018-09-10] MEDS ORDERED: ONDANSETRON HCL 4MG/2ML INJ IV PRN (17:45)
[2018-09-10] MEDS ORDERED: GUAIFENESIN 200MG/10ML SUGAR FREE UDC PO PRN (17:45)
[2018-09-10] MEDS ORDERED: CARVEDILOL 3.125 MG TABLET PO NR (18:27)
[2018-09-10] MEDS: DIPHENHYDRAMINE 50MG/ML VIAL IV PRN (19:27)
[2018-09-10 22:30] VITALS: BP 183/122
[2018-09-10] MEDS: ZOLPIDEM TARTRATE 5MG TABLET PO PRN (23:57)
[2018-09-10] MEDS: PHENYTOIN SODIUM EXTENDED 100MG CAPSULE PO SCH (23:58)
[2018-09-10] MEDS: CLONIDINE 0.1MG TABLET PO PRN (23:58)
[2018-09-10] MEDS: LORAZEPAM 0.5MG TABLET PO PRN (23:59)
[2018-09-11] VITALS (7 sets, daily range): BP systolic 149–175; BP diastolic 98–116
[2018-09-11] MEDS: CARVEDILOL 3.125 MG TABLET PO SCH ×3 (00:01→21:00)
[2018-09-11 00:34] LABS: CREATINE KINASE 70 IU/L (26-192)
[2018-09-11 00:35] LABS: CREATINE KINASE MB FRACTION 1.1 ng/mL (0.5-3.6)
[2018-09-11] MEDS: DIPHENHYDRAMINE 50MG/ML VIAL IV PRN ×4 (05:55→22:17)
[2018-09-11] MEDS ORDERED: CARVEDILOL 3.125 MG TABLET PO SCH (06:00)
[2018-09-11 07:13] LABS: CREATINE KINASE 66 IU/L (26-192)
[2018-09-11 07:14] LABS: CREATINE KINASE MB FRACTION < 1.0 ng/mL (0.5-3.6)
[2018-09-11 09:56] LABS: BASOPHILS % 1.3 % (0.0-2.0); EOSINOPHILS % 7.1 % (0.0-5.0); LYMPHOCYTES % 26.3 % (20.0-50.0); MEAN CORPUSCULAR HEMOGLOBIN 31.7 pg (28.0-32.0); MEAN CORPUSCULAR VOLUME 93.9 fL (81.0-99.0); MEAN PLATELET VOLUME 8.2 fl (7.4-10.4); MONOCYTES % 14.7 % (2.0-8.0); NEUTROPHILS % 50.6 % (40.0-76.0); PLATELET 56 x1000/uL (130-400); RED BLOOD CELL COUNT 1.97 mill/uL (4.2-5.4); RED CELL DISTRIBUTION WIDTH 16.4 % (11.6-14.6)
[2018-09-11 10:01] LABS: HEMATOCRIT. 18.5 % (36.0-48.0); HEMOGLOBIN. 6.2 g/dL (12.0-16.0)
[2018-09-11] MEDS: GUAIFENESIN/DM 600MG/30MG ER TAB 12HR PO SCH (10:32)
[2018-09-11] MEDS: FAMOTIDINE 20MG TABLET PO SCH (10:32)
[2018-09-11] MEDS: FOLIC ACID/VITAMIN B COMP W-C TABLET PO SCH (10:32)
[2018-09-11] MEDS: SEVELAMER CARBONATE 800 MG TABLET PO SCH ×3 (10:35→17:51)
[2018-09-11] MEDS: AMLODIPINE 10MG TABLET PO SCH (10:35)
[2018-09-11] MEDS: MORPHINE SULFATE 4 MG/ML CPJ (NOT FOR IM USE) IV PRN ×2 (10:38→17:52)
[2018-09-12 00:09] VITALS: BP 153/53
[2018-09-12] MEDS: PHENYTOIN SODIUM EXTENDED 100MG CAPSULE PO SCH ×2 (02:01→20:28)
[2018-09-12] MEDS: GUAIFENESIN/DM 600MG/30MG ER TAB 12HR PO SCH ×3 (02:01→20:29)
[2018-09-12] MEDS: MORPHINE SULFATE 4 MG/ML CPJ (NOT FOR IM USE) IV PRN ×4 (02:44→23:08)
[2018-09-12] MEDS: CLONIDINE 0.1MG TABLET PO PRN ×3 (04:11→20:30)
[2018-09-12] MEDS: DIPHENHYDRAMINE 50MG/ML VIAL IV PRN ×4 (04:12→20:36)
[2018-09-12 04:45] VITALS: BP 180/114
[2018-09-12 06:14] LABS: BASOPHILS % 1.1 % (0.0-2.0); EOSINOPHILS % 6.1 % (0.0-5.0); HEMATOCRIT. 22.3 % (36.0-48.0); HEMOGLOBIN. 7.7 g/dL (12.0-16.0); LYMPHOCYTES % 25.8 % (20.0-50.0); MEAN CORPUSCULAR VOLUME 93.2 fL (81.0-99.0); MONOCYTES % 12.9 % (2.0-8.0); NEUTROPHILS % 54.1 % (40.0-76.0); PLATELET 55 x1000/uL (130-400); RED CELL DISTRIBUTION WIDTH 15.8 % (11.6-14.6)
[2018-09-12] MEDS: SEVELAMER CARBONATE 800 MG TABLET PO SCH ×3 (06:14→18:42)
[2018-09-12 08:00] VITALS: BP 183/127
[2018-09-12] MEDS: AMLODIPINE 10MG TABLET PO SCH (09:14)
[2018-09-12] MEDS: FOLIC ACID/VITAMIN B COMP W-C TABLET PO SCH (09:15)
[2018-09-12] MEDS: FAMOTIDINE 20MG TABLET PO SCH (09:15)
[2018-09-12] MEDS: CARVEDILOL 3.125 MG TABLET PO SCH ×2 (09:15→20:29)
[2018-09-12] MEDS: ACETAMINOPHEN 325MG TABLET PO PRN ×2 (09:16→20:36)
[2018-09-12 12:00] VITALS: BP 171/116
[2018-09-12 16:00] VITALS: BP 138/94
[2018-09-12 20:05] VITALS: BP 171/115
[2018-09-12] MEDS: LORAZEPAM 0.5MG TABLET PO PRN (22:19)
[2018-09-12] MEDS: ZOLPIDEM TARTRATE 5MG TABLET PO PRN (23:30)
[2018-09-13 00:05] VITALS: BP 154/108
[2018-09-13 04:46] VITALS: BP 110/70
[2018-09-13] MEDS: MORPHINE SULFATE 4 MG/ML CPJ (NOT FOR IM USE) IV PRN ×3 (05:48→20:12)
[2018-09-13] MEDS: DIPHENHYDRAMINE 50MG/ML VIAL IV PRN ×3 (06:00→21:09)
[2018-09-13 07:25] LABS: BASOPHILS % 1.2 % (0.0-2.0); EOSINOPHILS % 8.4 % (0.0-5.0); HEMATOCRIT. 23.8 % (36.0-48.0); HEMOGLOBIN. 8.1 g/dL (12.0-16.0); LYMPHOCYTES % 34.4 % (20.0-50.0); MEAN CORPUSCULAR HEMOGLOBIN 31.8 pg (28.0-32.0); MEAN CORPUSCULAR VOLUME 92.8 fL (81.0-99.0); MEAN PLATELET VOLUME 8.1 fl (7.4-10.4); MONOCYTES % 11.5 % (2.0-8.0); NEUTROPHILS % 44.5 % (40.0-76.0); PLATELET 71 x1000/uL (130-400); RED BLOOD CELL COUNT 2.56 mill/uL (4.2-5.4); RED CELL DISTRIBUTION WIDTH 16.5 % (11.6-14.6)
[2018-09-13 08:00] VITALS: BP 175/125
[2018-09-13] MEDS: CARVEDILOL 3.125 MG TABLET PO SCH ×2 (09:00→20:11)
[2018-09-13] MEDS: AMLODIPINE 10MG TABLET PO SCH (09:00)
[2018-09-13] MEDS: FOLIC ACID/VITAMIN B COMP W-C TABLET PO SCH (09:19)
[2018-09-13] MEDS: FAMOTIDINE 20MG TABLET PO SCH (09:19)
[2018-09-13] MEDS: SEVELAMER CARBONATE 800 MG TABLET PO SCH ×3 (09:20→18:21)
[2018-09-13] MEDS: GUAIFENESIN/DM 600MG/30MG ER TAB 12HR PO SCH ×2 (09:20→20:11)
[2018-09-13] MEDS ORDERED: HEPARIN SODIUM 1,000 UNIT/1ML VIAL IV SCH (10:30)
[2018-09-13 12:00] VITALS: BP 160/108
[2018-09-13] MEDS: CLONIDINE 0.1MG TABLET PO PRN ×2 (12:22→18:21)
[2018-09-13 16:00] VITALS: BP 158/108
[2018-09-13] MEDS: PHENYTOIN SODIUM EXTENDED 100MG CAPSULE PO SCH (20:11)
[2018-09-13 20:36] VITALS: BP 154/109
[2018-09-13] MEDS: ZOLPIDEM TARTRATE 5MG TABLET PO PRN (22:42)
[2018-09-14 00:04] VITALS: BP 153/102
[2018-09-14] MEDS: CLONIDINE 0.1MG TABLET PO PRN (00:09)
[2018-09-14] MEDS: MORPHINE SULFATE 4 MG/ML CPJ (NOT FOR IM USE) IV PRN ×3 (00:09→08:28)
[2018-09-14] MEDS: DIPHENHYDRAMINE 50MG/ML VIAL IV PRN ×3 (02:18→10:29)
[2018-09-14] MEDS: LORAZEPAM 0.5MG TABLET PO PRN (03:16)
[2018-09-14 04:00] VITALS: BP 151/99
[2018-09-14 06:30] LABS: HEMATOCRIT. 25.5 % (36.0-48.0); HEMOGLOBIN. 8.7 g/dL (12.0-16.0); MEAN CORPUSCULAR HEMOGLOBIN 31.9 pg (28.0-32.0); MEAN CORPUSCULAR VOLUME 93.1 fL (81.0-99.0); MEAN PLATELET VOLUME 8.8 fl (7.4-10.4); PLATELET 76 x1000/uL (130-400); RED BLOOD CELL COUNT 2.73 mill/uL (4.2-5.4); RED CELL DISTRIBUTION WIDTH 16.1 % (11.6-14.6)
[2018-09-14 08:21] VITALS: BP 166/114
[2018-09-14] MEDS: GUAIFENESIN/DM 600MG/30MG ER TAB 12HR PO SCH (08:22)
[2018-09-14] MEDS: CARVEDILOL 3.125 MG TABLET PO SCH (08:22)
[2018-09-14] MEDS: FAMOTIDINE 20MG TABLET PO SCH (08:22)
[2018-09-14] MEDS: FOLIC ACID/VITAMIN B COMP W-C TABLET PO SCH (08:22)
[2018-09-14] MEDS: AMLODIPINE 10MG TABLET PO SCH (08:22)
[2018-09-14] MEDS: SEVELAMER CARBONATE 800 MG TABLET PO SCH (08:22)
[2018-09-14 10:44] VITALS: BP 150/100
[2018-09-14 14:24] LABS: PLATELET ESTIMATE DECREASED
== END 2018-09-14 11:45 | disposition home or self-care (01) | DRG 291 ==
LOC: ER 13:11 → 6WST 17:41 → EDBEDREQTM 17:43 → EDBEDREQ 17:43 → ENRESERV 19:53
PROVIDERS: ADMIT Internal Medicine; ATTEND Internal Medicine
PROC: 5A1D70Z Performance of Urinary Filtration, Intermittent, Less than 6 Hours Per Day (ICD-10-PCS; principal; 2018-09-11)
PROC: 30233N1 Transfusion of Nonautologous Red Blood Cells into Peripheral Vein, Percutaneous Approach (ICD-10-PCS; 2018-09-11)
PROC: 5A1D70Z Performance of Urinary Filtration, Intermittent, Less than 6 Hours Per Day (ICD-10-PCS; 2018-09-13)
DX: I13.2 Hypertensive heart and chronic kidney disease with heart failure and with stage 5 chronic kidney disease, or end stage renal disease (principal); N18.6 End stage renal disease; I50.33 Acute on chronic diastolic (congestive) heart failure; D61.818 Other pancytopenia; R18.8 Other ascites; E87.1 Hypo-osmolality and hyponatremia; E87.5 Hyperkalemia; G40.909 Epilepsy, unspecified, not intractable, without status epilepticus; E83.51 Hypocalcemia; Z99.2 Dependence on renal dialysis; E03.9 Hypothyroidism, unspecified; D63.8 Anemia in other chronic diseases classified elsewhere; F10.20 Alcohol dependence, uncomplicated; K70.9 Alcoholic liver disease, unspecified; Z71.41 Alcohol abuse counseling and surveillance of alcoholic; Z91.14 Patient's other noncompliance with medication regimen; Z91.11 Patient's noncompliance with dietary regimen; Z91.018 Allergy to other foods; Z79.899 Other long term (current) drug therapy
CPT/HCPCS: 36415; 71045; 76705; 80048; 80320; 82550; 82553; 82962; 83880; 84484; 86850; 86900; 86920; 93005; 94640; 96374; 99291; C1893; J1200; J1644; J1815; J2270; J7050; J7611; P9016; Q0163; G0480

== ENCOUNTER 2018-09-23 19:25 | Inpatient (IN) | payer MEDICARE, MEDICAID ==
[~2018-09-23] VITALS: Ht 170.2 cm; Wt 55.3 kg
[2018-09-23] MEDS ORDERED: DIPHENHYDRAMINE 50MG/ML VIAL IV ONE (21:30)
[2018-09-23] MEDS ORDERED: ONDANSETRON HCL 4MG/2ML INJ IV ONE (21:30)
[2018-09-23] MEDS ORDERED: MORPHINE SULFATE 4 MG/ML CPJ (NOT FOR IM USE) IV ONE (21:30)
[2018-09-23 21:33] LABS: MEAN CORPUSCULAR HEMOGLOBIN 32.3 pg (28.0-32.0); MEAN PLATELET VOLUME 8.1 fl (7.4-10.4); PLATELET 120 x1000/uL (130-400); RED BLOOD CELL COUNT 2.04 mill/uL (4.2-5.4); RED CELL DISTRIBUTION WIDTH 15.5 % (11.6-14.6)
[2018-09-23 21:35] LABS: CHLORIDE 97 mEq/L (98-107); HEMATOCRIT. 19.2 % (36.0-48.0); HEMOGLOBIN. 6.6 g/dL (12.0-16.0); INR 1.1; PROTHROMBIN TIME 11.1 sec (9.6-11.0)
[2018-09-23 22:02] LABS: PLATELET ESTIMATE DECREASED
[2018-09-24] MEDS: CLONIDINE 0.1MG TABLET PO PRN ×2 (01:28→20:57)
[2018-09-24] MEDS ORDERED: LORAZEPAM 2MG/ML CPJ IV NR (01:30)
[2018-09-24] MEDS ORDERED: DIPHENHYDRAMINE 50MG/ML VIAL IV NR (07:00)
[2018-09-24] MEDS: HYDROMORPHONE HCL/PF 2MG/ML CPJ IV PRN ×2 (08:17→20:59)
[2018-09-24] MEDS ORDERED: ACETAMINOPHEN 325MG TABLET PO PRN (08:45)
[2018-09-24] MEDS ORDERED: ONDANSETRON HCL 4MG/2ML INJ IV PRN (08:45)
[2018-09-24 09:03] LABS: BASOPHILS % 2.5 % (0.0-2.0); EOSINOPHILS % 7.5 % (0.0-5.0); HEMATOCRIT. 21.7 % (36.0-48.0); HEMOGLOBIN. 7.4 g/dL (12.0-16.0); LYMPHOCYTES % 17.5 % (20.0-50.0); MEAN CORPUSCULAR HEMOGLOBIN 31.5 pg (28.0-32.0); MEAN CORPUSCULAR VOLUME 92.4 fL (81.0-99.0); MEAN PLATELET VOLUME 7.8 fl (7.4-10.4); MONOCYTES % 14.2 % (2.0-8.0); NEUTROPHILS % 58.3 % (40.0-76.0); PLATELET 97 x1000/uL (130-400); RED BLOOD CELL COUNT 2.35 mill/uL (4.2-5.4); RED CELL DISTRIBUTION WIDTH 15.9 % (11.6-14.6)
[2018-09-24] MEDS: AMLODIPINE 5MG TABLET PO SCH ×2 (10:00→20:57)
[2018-09-24] MEDS ORDERED: VANCOMYCIN 1 G PREMIX 200 ML IV NR ×2 (10:15→23:00)
[2018-09-24] MEDS: LOSARTAN POTASSIUM 50 MG TABLET PO SCH (10:29)
[2018-09-24 11:30] VITALS: BP 161/100
[2018-09-24] MEDS: LORAZEPAM 2MG/ML CPJ IV PRN ×2 (12:17→21:00)
[2018-09-24] MEDS ORDERED: SODIUM BICARBONATE 4% (2.4MEQ) 5ML VIAL IV ONE (15:20)
[2018-09-24] MEDS ORDERED: LIDOCAINE HCL 1% 20ML VIAL (Pyxis) INJ ONE (15:20)
[2018-09-24 15:46] VITALS: BP 158/100
[2018-09-24] MEDS: DIPHENHYDRAMINE 50MG/ML VIAL IM PRN ×2 (17:29→23:09)
[2018-09-24 20:00] VITALS: BP 175/105
[2018-09-25] VITALS: BP 141/96
[2018-09-25] MEDS: HYDROMORPHONE HCL/PF 2MG/ML CPJ IV PRN ×4 (02:39→20:57)
[2018-09-25] MEDS: LORAZEPAM 2MG/ML CPJ IV PRN ×4 (02:40→22:42)
[2018-09-25 04:00] VITALS: BP 144/95
[2018-09-25 08:00] VITALS: BP 142/98
[2018-09-25] MEDS: DIPHENHYDRAMINE 50MG/ML VIAL IM PRN ×3 (08:03→21:23)
[2018-09-25] MEDS: AMLODIPINE 5MG TABLET PO SCH ×2 (08:16→20:54)
[2018-09-25] MEDS: LOSARTAN POTASSIUM 50 MG TABLET PO SCH (08:40)
[2018-09-25 09:11] LABS: HEMATOCRIT. 25.2 % (36.0-48.0); HEMOGLOBIN. 8.7 g/dL (12.0-16.0); MEAN CORPUSCULAR HEMOGLOBIN 31.6 pg (28.0-32.0); MEAN CORPUSCULAR VOLUME 92.1 fL (81.0-99.0); MEAN PLATELET VOLUME 8.2 fl (7.4-10.4); PLATELET 96 x1000/uL (130-400); RED BLOOD CELL COUNT 2.74 mill/uL (4.2-5.4); RED CELL DISTRIBUTION WIDTH 15.5 % (11.6-14.6)
[2018-09-25 10:48] LABS: PLATELET ESTIMATE SLIGHTLY DECREASED
[2018-09-25 12:00] VITALS: BP 137/95
[2018-09-25 16:30] VITALS: BP 144/96
[2018-09-25 20:00] VITALS: BP 167/111
[2018-09-25] MEDS: CLONIDINE 0.1MG TABLET PO PRN (23:29)
[2018-09-26 00:10] VITALS: BP 161/115
[2018-09-26] MEDS: HYDROMORPHONE HCL/PF 2MG/ML CPJ IV PRN ×2 (01:12→05:33)
[2018-09-26 04:00] VITALS: BP 121/79
[2018-09-26] MEDS: DIPHENHYDRAMINE 50MG/ML VIAL IM PRN (06:18)
[2018-09-26] MEDS: LORAZEPAM 2MG/ML CPJ IV PRN (06:50)
[2018-09-26 08:30] VITALS: BP 159/100
[2018-09-26] MEDS: LOSARTAN POTASSIUM 50 MG TABLET PO SCH (09:40)
[2018-09-26] MEDS: AMLODIPINE 5MG TABLET PO SCH (09:40)
[2018-09-26 10:22] VITALS: BP 159/100
== END 2018-09-26 11:50 | disposition home or self-care (01) | DRG 871 ==
LOC: ER 19:25 → 8WST 21:34 → ENRESERV 09-24 09:58
PROVIDERS: ADMIT Internal Medicine; ATTEND Internal Medicine
PROC: 30233N1 Transfusion of Nonautologous Red Blood Cells into Peripheral Vein, Percutaneous Approach (ICD-10-PCS; principal; 2018-09-23)
PROC: 0W9G3ZZ Drainage of Peritoneal Cavity, Percutaneous Approach (ICD-10-PCS; 2018-09-24)
PROC: 5A1D70Z Performance of Urinary Filtration, Intermittent, Less than 6 Hours Per Day (ICD-10-PCS; 2018-09-24)
DX: A41.9 Sepsis, unspecified organism (principal); N18.6 End stage renal disease; I13.2 Hypertensive heart and chronic kidney disease with heart failure and with stage 5 chronic kidney disease, or end stage renal disease; E44.1 Mild protein-calorie malnutrition; R18.8 Other ascites; Z68.1 Body mass index [BMI] 19.9 or less, adult; I50.9 Heart failure, unspecified; K74.60 Unspecified cirrhosis of liver; D64.9 Anemia, unspecified; K70.40 Alcoholic hepatic failure without coma; E78.5 Hyperlipidemia, unspecified; G40.909 Epilepsy, unspecified, not intractable, without status epilepticus; E03.9 Hypothyroidism, unspecified; Z91.018 Allergy to other foods; Z91.010 Allergy to peanuts; Z99.2 Dependence on renal dialysis; Z76.5 Malingerer [conscious simulation]
CPT/HCPCS: 36415; 49083; 80048; 80202; 83605; 84145; 86850; 86900; 86920; 93005; 96365; 96375; 99291; C1893; J1170; J1200; J2060; J2270; J2405; J3370; J3490; J7040; P9016

== ENCOUNTER 2018-10-04 01:34 | Inpatient (IN) | payer MEDICARE, MEDICAID ==
[~2018-10-04] VITALS: Ht 170.2 cm; Wt 57.6 kg
[2018-10-04 04:07] LABS: BASOPHILS % 1.9 % (0.0-2.0); EOSINOPHILS % 3.1 % (0.0-5.0); HEMATOCRIT. 22.5 % (36.0-48.0); HEMOGLOBIN. 7.2 g/dL (12.0-16.0); MEAN CORPUSCULAR HEMOGLOBIN 31.4 pg (28.0-32.0); MEAN CORPUSCULAR VOLUME 97.4 fL (81.0-99.0); MEAN PLATELET VOLUME 7.8 fl (7.4-10.4); MONOCYTES % 11.4 % (2.0-8.0); NEUTROPHILS % 57.6 % (40.0-76.0); PLATELET 172 x1000/uL (130-400); RED BLOOD CELL COUNT 2.31 mill/uL (4.2-5.4); RED CELL DISTRIBUTION WIDTH 15.7 % (11.6-14.6)
[2018-10-04 04:09] LABS: CHLORIDE 98 mEq/L (98-107)
[2018-10-04] MEDS ORDERED: SODIUM CHLORIDE 0.9% 500 ML IV ONE (04:37)
[2018-10-04] MEDS ORDERED: ONDANSETRON HCL 4MG/2ML INJ IV ONE (04:45)
[2018-10-04] MEDS ORDERED: MORPHINE SULFATE 2 MG/ML CPJ (NOT FOR IM USE) IV ONE (04:45)
[2018-10-04] MEDS ORDERED: MORPHINE SULFATE 4 MG/ML CPJ (NOT FOR IM USE) IV SCH (05:15)
[2018-10-04] MEDS ORDERED: GUAIFENESIN 200MG/10ML SUGAR FREE UDC PO PRN (07:00)
[2018-10-04] MEDS ORDERED: MAGNESIUM/ALUMINUM HYDROXIDE/SIMETHICONE 30ML UDC PO PRN (07:00)
[2018-10-04] MEDS ORDERED: IPRATROPIUM/ALBUTEROL 0.5-3(2.5)MG/3ML NEB INH PRN (07:00)
[2018-10-04] MEDS ORDERED: ENOXAPARIN 40MG/0.4ML SYR SUBCUT SCH (07:00)
[2018-10-04] MEDS ORDERED: ACETAMINOPHEN 325MG TABLET PO PRN (07:00)
[2018-10-04] MEDS ORDERED: NITROGLYCERIN 0.4MG TABLET SL SL PRN (07:00)
[2018-10-04] MEDS ORDERED: ONDANSETRON HCL 4MG/2ML INJ IV PRN (07:00)
[2018-10-04] MEDS ORDERED: DOCUSATE SODIUM 100MG CAPSULE PO PRN (07:00)
[2018-10-04] MEDS ORDERED: DIPHENHYDRAMINE 50MG/ML VIAL IV SCH (07:30)
[2018-10-04] MEDS ORDERED: SEVELAMER CARBONATE 800 MG TABLET PO SCH (09:00)
[2018-10-04] MEDS ORDERED: FAMOTIDINE 20MG TABLET PO SCH (09:00)
[2018-10-04] MEDS ORDERED: FOLIC ACID/VITAMIN B COMP W-C TABLET PO SCH (09:00)
[2018-10-04 12:00] VITALS: BP 127/63
[2018-10-04 12:30] VITALS: BP 127/63
[2018-10-04] MEDS: HYDROMORPHONE HCL/PF 2MG/ML CPJ IV PRN ×2 (12:44→18:50)
[2018-10-04] MEDS: LORAZEPAM 0.5MG TABLET PO PRN ×2 (12:53→23:29)
[2018-10-04] MEDS: SEVELAMER CARBONATE 800 MG TABLET PO SCH ×2 (12:53→17:47)
[2018-10-04] MEDS: FOLIC ACID/VITAMIN B COMP W-C TABLET PO SCH (12:53)
[2018-10-04] MEDS: ENOXAPARIN 30MG/0.3ML SYR SUBCUT SCH (13:00)
[2018-10-04] MEDS: DIPHENHYDRAMINE 50MG/ML VIAL IV PRN ×3 (13:19→22:01)
[2018-10-04 15:46] LABS: CREATINE KINASE MB FRACTION 2.2 ng/mL (0.5-3.6)
[2018-10-04 16:00] VITALS: BP_SYST 179
[2018-10-04] MEDS: CLONIDINE 0.1MG TABLET PO PRN ×2 (18:57→21:04)
[2018-10-04 20:19] VITALS: BP 168/88
[2018-10-04] MEDS: EPOETIN ALFA 10000UNITS/ML VIAL SUBCUT SCH (21:03)
[2018-10-04] MEDS: FAMOTIDINE 20MG TABLET PO SCH (21:03)
[2018-10-04] MEDS: ZOLPIDEM TARTRATE 5MG TABLET PO PRN (21:03)
[2018-10-04] MEDS: PHENYTOIN SODIUM EXTENDED 100MG CAPSULE PO SCH (21:04)
[2018-10-05] VITALS (9 sets, daily range): BP systolic 164–184; BP diastolic 94–126
[2018-10-05] MEDS: HYDROMORPHONE HCL/PF 2MG/ML CPJ IV PRN ×2 (00:55→06:48)
[2018-10-05] MEDS: DIPHENHYDRAMINE 50MG/ML VIAL IV PRN ×4 (03:29→20:40)
[2018-10-05] MEDS: PHENYTOIN SODIUM EXTENDED 100MG CAPSULE PO SCH ×3 (06:48→20:34)
[2018-10-05] MEDS: SEVELAMER CARBONATE 800 MG TABLET PO SCH ×3 (06:48→18:25)
[2018-10-05 06:51] LABS: MEAN CORPUSCULAR VOLUME 97.6 fL (81.0-99.0); PLATELET 80 x1000/uL (130-400); RED BLOOD CELL COUNT 1.97 mill/uL (4.2-5.4); RED CELL DISTRIBUTION WIDTH 15.6 % (11.6-14.6)
[2018-10-05 07:07] LABS: HEMATOCRIT. 19.3 % (36.0-48.0); HEMOGLOBIN. 6.3 g/dL (12.0-16.0)
[2018-10-05] MEDS: FOLIC ACID/VITAMIN B COMP W-C TABLET PO SCH (08:15)
[2018-10-05] MEDS: LORAZEPAM 0.5MG TABLET PO PRN ×2 (09:04→23:26)
[2018-10-05] MEDS: CLONIDINE 0.1MG TABLET PO PRN ×2 (09:16→18:24)
[2018-10-05] MEDS: ENOXAPARIN 30MG/0.3ML SYR SUBCUT SCH (13:00)
[2018-10-05 13:35] LABS: PLATELET ESTIMATE DECREASED
[2018-10-05] MEDS ORDERED: DIPHENHYDRAMINE 50MG/ML VIAL IV NR (16:00)
[2018-10-05] MEDS: FAMOTIDINE 20MG TABLET PO SCH (20:34)
[2018-10-05] MEDS: TRAMADOL 50MG TABLET PO PRN (20:34)
[2018-10-06 00:12] VITALS: BP 195/82
[2018-10-06] MEDS: CLONIDINE 0.1MG TABLET PO PRN ×4 (00:27→20:54)
[2018-10-06] MEDS: DIPHENHYDRAMINE 50MG/ML VIAL IV PRN ×5 (00:32→17:05)
[2018-10-06 04:00] VITALS: BP 182/124
[2018-10-06] MEDS: TRAMADOL 50MG TABLET PO PRN (04:54)
[2018-10-06] MEDS: SEVELAMER CARBONATE 800 MG TABLET PO SCH ×3 (05:01→17:03)
[2018-10-06] MEDS: PHENYTOIN SODIUM EXTENDED 100MG CAPSULE PO SCH ×3 (05:01→20:55)
[2018-10-06] MEDS: FOLIC ACID/VITAMIN B COMP W-C TABLET PO SCH (07:55)
[2018-10-06 08:00] VITALS: BP 192/124
[2018-10-06] MEDS: AMLODIPINE 10MG TABLET PO SCH (10:59)
[2018-10-06] MEDS ORDERED: HYDROXYZINE 25MG TABLET PO PRN (11:00)
[2018-10-06] MEDS: CARVEDILOL 3.125 MG TABLET PO SCH ×2 (11:00→20:55)
[2018-10-06 11:46] VITALS: BP 190/128
[2018-10-06] MEDS: ENOXAPARIN 30MG/0.3ML SYR SUBCUT SCH (12:09)
[2018-10-06] MEDS: HYDRALAZINE HCL 50MG TABLET PO SCH ×2 (12:09→20:55)
[2018-10-06] MEDS: LORAZEPAM 0.5MG TABLET PO PRN (12:10)
[2018-10-06 12:21] LABS: BASOPHILS % 1.1 % (0.0-2.0); EOSINOPHILS % 5.6 % (0.0-5.0); LYMPHOCYTES % 13.6 % (20.0-50.0); MEAN CORPUSCULAR HEMOGLOBIN 31.3 pg (28.0-32.0); MEAN CORPUSCULAR VOLUME 90.2 fL (81.0-99.0); MEAN PLATELET VOLUME 7.4 fl (7.4-10.4); MONOCYTES % 10.4 % (2.0-8.0); NEUTROPHILS % 69.3 % (40.0-76.0); PLATELET 108 x1000/uL (130-400); RED BLOOD CELL COUNT 2.55 mill/uL (4.2-5.4); RED CELL DISTRIBUTION WIDTH 17.8 % (11.6-14.6)
[2018-10-06 15:51] VITALS: BP 174/122
[2018-10-06 20:00] VITALS: BP 185/130
[2018-10-06] MEDS: FAMOTIDINE 20MG TABLET PO SCH (20:55)
[2018-10-06] MEDS: EPOETIN ALFA 10000UNITS/ML VIAL SUBCUT SCH (21:00)
[2018-10-06] MEDS: ZOLPIDEM TARTRATE 5MG TABLET PO PRN (22:36)
[2018-10-07] VITALS (13 sets, daily range): BP systolic 152–181; BP diastolic 100–132
[2018-10-07] MEDS: DIPHENHYDRAMINE 50MG/ML VIAL IV PRN ×3 (01:24→10:10)
[2018-10-07] MEDS: LORAZEPAM 0.5MG TABLET PO PRN (03:57)
[2018-10-07] MEDS: SEVELAMER CARBONATE 800 MG TABLET PO SCH ×3 (05:35→17:15)
[2018-10-07] MEDS: PHENYTOIN SODIUM EXTENDED 100MG CAPSULE PO SCH ×2 (05:35→13:36)
[2018-10-07] MEDS: CLONIDINE 0.1MG TABLET PO PRN (05:35)
[2018-10-07] MEDS: HYDRALAZINE HCL 50MG TABLET PO SCH ×2 (05:35→13:33)
[2018-10-07 06:44] LABS: BASOPHILS % 1.2 % (0.0-2.0); EOSINOPHILS % 5.8 % (0.0-5.0); HEMOGLOBIN. 7.1 g/dL (12.0-16.0); MEAN CORPUSCULAR VOLUME 90.3 fL (81.0-99.0); MEAN PLATELET VOLUME 8.3 fl (7.4-10.4); MONOCYTES % 9.5 % (2.0-8.0); NEUTROPHILS % 64.5 % (40.0-76.0); PLATELET 100 x1000/uL (130-400); RED BLOOD CELL COUNT 2.28 mill/uL (4.2-5.4); RED CELL DISTRIBUTION WIDTH 17.7 % (11.6-14.6)
[2018-10-07] MEDS: CARVEDILOL 3.125 MG TABLET PO SCH (08:59)
[2018-10-07] MEDS: FOLIC ACID/VITAMIN B COMP W-C TABLET PO SCH (08:59)
[2018-10-07] MEDS: AMLODIPINE 10MG TABLET PO SCH (09:00)
[2018-10-07 09:02] LABS: HEMATOCRIT. 20.6 % (36.0-48.0)
[2018-10-07] MEDS ORDERED: DIPHENHYDRAMINE 50MG/ML VIAL IV NR (12:45)
[2018-10-07] MEDS: ENOXAPARIN 30MG/0.3ML SYR SUBCUT SCH (13:00)
== END 2018-10-07 19:20 | disposition home or self-care (01) | DRG 640 ==
LOC: ER 01:34 → 6WST 05:48 → EDBEDREQ 05:51 → EDBEDREQTM 05:51 → ENRESERV 10:22
PROVIDERS: ADMIT Internal Medicine; ATTEND Internal Medicine
PROC: 5A1D70Z Performance of Urinary Filtration, Intermittent, Less than 6 Hours Per Day (ICD-10-PCS; 2018-10-04)
PROC: 30233N1 Transfusion of Nonautologous Red Blood Cells into Peripheral Vein, Percutaneous Approach (ICD-10-PCS; principal; 2018-10-05)
PROC: 5A1D70Z Performance of Urinary Filtration, Intermittent, Less than 6 Hours Per Day (ICD-10-PCS; 2018-10-05)
PROC: 5A1D70Z Performance of Urinary Filtration, Intermittent, Less than 6 Hours Per Day (ICD-10-PCS; 2018-10-07)
DX: E87.70 Fluid overload, unspecified (principal); N18.6 End stage renal disease; I13.2 Hypertensive heart and chronic kidney disease with heart failure and with stage 5 chronic kidney disease, or end stage renal disease; E44.0 Moderate protein-calorie malnutrition; I50.30 Unspecified diastolic (congestive) heart failure; Z68.1 Body mass index [BMI] 19.9 or less, adult; E87.2 Acidosis; E03.9 Hypothyroidism, unspecified; E78.5 Hyperlipidemia, unspecified; G40.909 Epilepsy, unspecified, not intractable, without status epilepticus; D63.8 Anemia in other chronic diseases classified elsewhere; I95.9 Hypotension, unspecified; F19.10 Other psychoactive substance abuse, uncomplicated; E83.51 Hypocalcemia; F10.10 Alcohol abuse, uncomplicated; K74.60 Unspecified cirrhosis of liver; Z99.2 Dependence on renal dialysis; Z91.14 Patient's other noncompliance with medication regimen; Z91.11 Patient's noncompliance with dietary regimen; Z91.15 Patient's noncompliance with renal dialysis; Z91.018 Allergy to other foods; Z79.899 Other long term (current) drug therapy; Z71.51 Drug abuse counseling and surveillance of drug abuser; Z71.41 Alcohol abuse counseling and surveillance of alcoholic
CPT/HCPCS: 36415; 71045; 80048; 80320; 82550; 82553; 82962; 83605; 84484; 86850; 86900; 86920; 93005; 96374; 96375; 99285; J0885; J1170; J1200; J1650; J2270; J2405; J7040; J7050; P9016; G0480

== ENCOUNTER 2018-10-21 22:26 | Inpatient (IN) | payer MEDICARE, MEDICAID ==
[~2018-10-21] VITALS: Ht 170.2 cm; Wt 57.2 kg
[2018-10-22 00:31] LABS: MEAN CORPUSCULAR HEMOGLOBIN 30.9 pg (28.0-32.0); MEAN CORPUSCULAR VOLUME 89.5 fL (81.0-99.0); MEAN PLATELET VOLUME 7.3 fl (7.4-10.4); PLATELET 106 x1000/uL (130-400); RED CELL DISTRIBUTION WIDTH 18.4 % (11.6-14.6)
[2018-10-22 00:37] LABS: CHLORIDE 100 mEq/L (98-107); HEMATOCRIT. 17.9 % (36.0-48.0); HEMOGLOBIN. 6.2 g/dL (12.0-16.0)
[2018-10-22 00:40] LABS: INR 1.1; PARTIAL THROMBOPLASTIN TIME 26.2 sec (23.4-31.0)
[2018-10-22] MEDS ORDERED: PIPERACILLIN SODIUM/TAZOBACTAM 4.5 G in DEXT 5% WATER 100 ML IV SCH (01:00)
[2018-10-22] MEDS ORDERED: VANCOMYCIN 1 G PREMIX 200 ML IV SCH (01:00)
[2018-10-22 01:27] LABS: ATYPICAL LYMPHOCYTES 2
[2018-10-22 01:28] LABS: PLATELET ESTIMATE SLIGHTLY DECREASED
[2018-10-22] MEDS ORDERED: LIDOCAINE HCL 1% 20ML VIAL (Pyxis) INJ INJ NR (01:28)
[2018-10-22] MEDS ORDERED: SODIUM CHLORIDE 0.9% 1000ML BAG (SEPSIS BOLUS) IV NR (01:30)
[2018-10-22] MEDS ORDERED: DIPHENHYDRAMINE 25MG CAPSULE PO ONE (01:45)
[2018-10-22] MEDS ORDERED: MORPHINE SULFATE 4 MG/ML CPJ (NOT FOR IM USE) IV ONE (01:45)
[2018-10-22] MEDS ORDERED: LORAZEPAM 2MG/ML CPJ IV PRN (04:15)
[2018-10-22] MEDS ORDERED: ONDANSETRON HCL 4MG/2ML INJ IV PRN (04:15)
[2018-10-22] MEDS ORDERED: MAGNESIUM/ALUMINUM HYDROXIDE/SIMETHICONE 30ML UDC PO PRN (04:15)
[2018-10-22] MEDS ORDERED: CLONIDINE 0.1MG TABLET PO PRN (04:15)
[2018-10-22] MEDS ORDERED: DOCUSATE SODIUM 100MG CAPSULE PO PRN (04:15)
[2018-10-22] MEDS ORDERED: ACETAMINOPHEN 325MG TABLET PO PRN (04:15)
[2018-10-22] MEDS ORDERED: HYDROMORPHONE HCL/PF 2MG/ML CPJ IV PRN (04:30)
[2018-10-22 04:35] VITALS: BP 192/123
[2018-10-22 04:45] VITALS: BP 192/123
[2018-10-22] MEDS: HYDROMORPHONE HCL/PF 2MG/ML CPJ IV PRN ×3 (05:12→20:11)
[2018-10-22] MEDS: HYDRALAZINE HCL 100MG TABLET PO SCH ×3 (05:12→21:11)
[2018-10-22] MEDS: CARVEDILOL 12.5MG TABLET PO SCH ×2 (05:12→21:11)
[2018-10-22 08:00] VITALS: BP 146/96
[2018-10-22] MEDS: FAMOTIDINE 20MG/2ML VIAL IV SCH (08:32)
[2018-10-22] MEDS: DIPHENHYDRAMINE 50MG/ML VIAL IV PRN ×3 (08:32→22:30)
[2018-10-22] MEDS: AMLODIPINE 10MG TABLET PO SCH (08:33)
[2018-10-22] MEDS: LISINOPRIL 20MG TABLET PO SCH (08:33)
[2018-10-22] MEDS ORDERED: DIPHENHYDRAMINE 50MG/ML VIAL IV SCH (08:45)
[2018-10-22] MEDS: FOLIC ACID/VITAMIN B COMP W-C TABLET PO SCH (09:56)
[2018-10-22] MEDS ORDERED: FLUOXETINE HCL 20MG CAPSULE PO NR (11:15)
[2018-10-22] MEDS: LEVOTHYROXINE SODIUM 50MCG TABLET PO SCH (11:30)
[2018-10-22 12:00] VITALS: BP 120/72
[2018-10-22] MEDS: SEVELAMER CARBONATE 800 MG TABLET PO SCH ×2 (13:21→18:17)
[2018-10-22] MEDS: PHENYTOIN SODIUM EXTENDED 100MG CAPSULE PO SCH ×2 (13:21→16:49)
[2018-10-22] MEDS: LORAZEPAM 2MG/ML CPJ IV PRN ×2 (13:22→23:41)
[2018-10-22] MEDS: PIPERACILLIN/TAZ 2.25G PREMIX 50 ML IV SCH ×2 (13:22→18:17)
[2018-10-22 16:00] VITALS: BP 132/86
[2018-10-22] MEDS ORDERED: CARVEDILOL 6.25 MG TABLET PO SCH (17:00)
[2018-10-22 20:00] VITALS: BP 153/95
[2018-10-22] MEDS ORDERED: EPOETIN ALFA 10000UNITS/ML VIAL SUBCUT SCH (21:00)
[2018-10-22] MEDS ORDERED: VANCOMYCIN 500 MG PREMIX 100 ML IV SCH (21:00)
[2018-10-23] VITALS: BP 137/78
[2018-10-23] MEDS: PIPERACILLIN/TAZ 2.25G PREMIX 50 ML IV SCH ×3 (01:40→17:37)
[2018-10-23 04:00] VITALS: BP 177/106
[2018-10-23] MEDS: HYDRALAZINE HCL 100MG TABLET PO SCH ×3 (04:52→21:04)
[2018-10-23] MEDS: HYDROMORPHONE HCL/PF 2MG/ML CPJ IV PRN ×5 (04:52→21:56)
[2018-10-23] MEDS: DIPHENHYDRAMINE 50MG/ML VIAL IV PRN ×4 (06:12→23:49)
[2018-10-23 06:41] LABS: HEMATOCRIT. 22.6 % (36.0-48.0); HEMOGLOBIN. 7.7 g/dL (12.0-16.0); MEAN CORPUSCULAR HEMOGLOBIN 31.4 pg (28.0-32.0); MEAN CORPUSCULAR VOLUME 92.1 fL (81.0-99.0); MEAN PLATELET VOLUME 8.2 fl (7.4-10.4); PLATELET 130 x1000/uL (130-400); RED BLOOD CELL COUNT 2.46 mill/uL (4.2-5.4); RED CELL DISTRIBUTION WIDTH 17.3 % (11.6-14.6)
[2018-10-23 07:27] LABS: CHLORIDE 106 mEq/L (98-107)
[2018-10-23 08:00] VITALS: BP 160/104
[2018-10-23] MEDS: LEVOTHYROXINE SODIUM 50MCG TABLET PO SCH (09:05)
[2018-10-23] MEDS: SEVELAMER CARBONATE 800 MG TABLET PO SCH ×3 (09:05→17:37)
[2018-10-23] MEDS: AMLODIPINE 10MG TABLET PO SCH (09:06)
[2018-10-23] MEDS: LISINOPRIL 20MG TABLET PO SCH (09:06)
[2018-10-23] MEDS: FAMOTIDINE 20MG/2ML VIAL IV SCH (09:07)
[2018-10-23] MEDS: PHENYTOIN SODIUM EXTENDED 100MG CAPSULE PO SCH ×3 (09:07→17:37)
[2018-10-23] MEDS: FOLIC ACID/VITAMIN B COMP W-C TABLET PO SCH (09:07)
[2018-10-23] MEDS: CARVEDILOL 12.5MG TABLET PO SCH ×2 (09:07→21:05)
[2018-10-23] MEDS: LORAZEPAM 2MG/ML CPJ IV PRN ×2 (09:25→17:37)
[2018-10-23 12:00] VITALS: BP 157/91
[2018-10-23 12:16] LABS: PLATELET ESTIMATE NORMAL
[2018-10-23 16:00] VITALS: BP 156/88
[2018-10-23 20:00] VITALS: BP 169/101
[2018-10-24] VITALS (11 sets, daily range): BP systolic 135–181; BP diastolic 74–109
[2018-10-24] MEDS: PIPERACILLIN/TAZ 2.25G PREMIX 50 ML IV SCH ×2 (01:55→11:44)
[2018-10-24] MEDS: LORAZEPAM 2MG/ML CPJ IV PRN (01:55)
[2018-10-24] MEDS: HYDROMORPHONE HCL/PF 2MG/ML CPJ IV PRN ×2 (03:59→09:01)
[2018-10-24] MEDS: HYDRALAZINE HCL 100MG TABLET PO SCH (05:00)
[2018-10-24] MEDS: DIPHENHYDRAMINE 50MG/ML VIAL IV PRN ×2 (05:58→11:43)
[2018-10-24] MEDS: FAMOTIDINE 20MG/2ML VIAL IV SCH (08:51)
[2018-10-24] MEDS: PHENYTOIN SODIUM EXTENDED 100MG CAPSULE PO SCH ×2 (08:52→12:50)
[2018-10-24] MEDS: LEVOTHYROXINE SODIUM 50MCG TABLET PO SCH (08:52)
[2018-10-24] MEDS: SEVELAMER CARBONATE 800 MG TABLET PO SCH ×2 (08:59→12:50)
[2018-10-24] MEDS: CARVEDILOL 12.5MG TABLET PO SCH (09:00)
[2018-10-24] MEDS: AMLODIPINE 10MG TABLET PO SCH (09:00)
[2018-10-24] MEDS: LISINOPRIL 20MG TABLET PO SCH (09:00)
[2018-10-24] MEDS: FOLIC ACID/VITAMIN B COMP W-C TABLET PO SCH (09:02)
[2018-10-24 09:28] LABS: BASOPHILS % 1.4 % (0.0-2.0); EOSINOPHILS % 5.5 % (0.0-5.0); LYMPHOCYTES % 22.8 % (20.0-50.0); MEAN CORPUSCULAR HEMOGLOBIN 31.4 pg (28.0-32.0); MEAN CORPUSCULAR VOLUME 92.3 fL (81.0-99.0); MEAN PLATELET VOLUME 8.1 fl (7.4-10.4); MONOCYTES % 12.7 % (2.0-8.0); NEUTROPHILS % 57.6 % (40.0-76.0); PLATELET 140 x1000/uL (130-400); RED BLOOD CELL COUNT 2.21 mill/uL (4.2-5.4); RED CELL DISTRIBUTION WIDTH 17.8 % (11.6-14.6)
[2018-10-24 09:34] LABS: HEMATOCRIT. 20.4 % (36.0-48.0); HEMOGLOBIN. 6.9 g/dL (12.0-16.0)
[2018-10-24] MEDS ORDERED: VANCOMYCIN 500 MG PREMIX 100 ML IV SCH (12:00)
[2018-10-24] MEDS ORDERED: DIPHENHYDRAMINE 50MG/ML VIAL IV PRN (13:24)
== END 2018-10-24 18:39 | disposition home or self-care (01) | DRG 432 ==
LOC: ER 22:26 → 7WST 10-22 01:11 → ENRESERV 10-22 02:18 → SUPCPDRO 10-22 04:12
PROVIDERS: ADMIT Hospitalist; ATTEND Hospitalist
PROC: 30233N1 Transfusion of Nonautologous Red Blood Cells into Peripheral Vein, Percutaneous Approach (ICD-10-PCS; principal; 2018-10-22)
PROC: 5A1D70Z Performance of Urinary Filtration, Intermittent, Less than 6 Hours Per Day (ICD-10-PCS; 2018-10-22)
PROC: 0W9G3ZZ Drainage of Peritoneal Cavity, Percutaneous Approach (ICD-10-PCS; 2018-10-22)
PROC: 5A1D70Z Performance of Urinary Filtration, Intermittent, Less than 6 Hours Per Day (ICD-10-PCS; 2018-10-23)
DX: K70.40 Alcoholic hepatic failure without coma (principal); N18.6 End stage renal disease; R18.8 Other ascites; D61.818 Other pancytopenia; I12.0 Hypertensive chronic kidney disease with stage 5 chronic kidney disease or end stage renal disease; E87.2 Acidosis; D63.1 Anemia in chronic kidney disease; E03.9 Hypothyroidism, unspecified; E78.00 Pure hypercholesterolemia, unspecified; G40.909 Epilepsy, unspecified, not intractable, without status epilepticus; E78.5 Hyperlipidemia, unspecified; Z91.15 Patient's noncompliance with renal dialysis; Z91.19 Patient's noncompliance with other medical treatment and regimen; Z99.2 Dependence on renal dialysis; Z79.899 Other long term (current) drug therapy; Z91.018 Allergy to other foods
CPT/HCPCS: 36415; 71045; 80048; 80202; 83605; 83880; 84484; 86850; 86900; 86920; 87075; 93005; 93970; 96374; 99285; J0885; J1170; J1200; J2060; J2270; J2543; J3370; J3490; J7040; J7050; J7060; P9016; Q0163

== ENCOUNTER 2018-10-28 15:01 | Inpatient (IN) | payer MEDICARE, MEDICAID ==
[~2018-10-28] VITALS: Ht 167.6 cm; Wt 64.9 kg
[2018-10-28] MEDS ORDERED: ONDANSETRON HCL 4MG/2ML INJ IV STA (16:07)
[2018-10-28] MEDS ORDERED: MORPHINE SULFATE 4 MG/ML CPJ (NOT FOR IM USE) IV STA (16:07)
[2018-10-28] MEDS ORDERED: SODIUM CHLORIDE 0.9% 1,000 ML IV ONE (16:07)
[2018-10-28] MEDS ORDERED: HYDRALAZINE 20MG/ML VIAL IV ONE (16:15)
[2018-10-28] MEDS ORDERED: DIPHENHYDRAMINE 50MG/ML VIAL IV ONE (16:15)
[2018-10-28 17:45] LABS: HEMATOCRIT. 24.7 % (36.0-48.0); HEMOGLOBIN. 8.4 g/dL (12.0-16.0); MEAN CORPUSCULAR HEMOGLOBIN 30.6 pg (28.0-32.0); MEAN PLATELET VOLUME 7.2 fl (7.4-10.4); PLATELET 173 x1000/uL (130-400); RED BLOOD CELL COUNT 2.75 mill/uL (4.2-5.4); RED CELL DISTRIBUTION WIDTH 19.4 % (11.6-14.6)
[2018-10-28 17:50] LABS: INR 1.2; PARTIAL THROMBOPLASTIN TIME 25.9 sec (23.4-31.0)
[2018-10-28 17:52] LABS: CHLORIDE 105 mEq/L (98-107)
[2018-10-28 18:09] LABS: PLATELET ESTIMATE NORMAL
[2018-10-28] MEDS ORDERED: DOCUSATE SODIUM 100MG CAPSULE PO PRN (19:15)
[2018-10-28] MEDS ORDERED: ONDANSETRON HCL 4MG/2ML INJ IV PRN (19:15)
[2018-10-28] MEDS ORDERED: MORPHINE SULFATE 2 MG/ML CPJ (NOT FOR IM USE) IV PRN (19:15)
[2018-10-28] MEDS ORDERED: ACETAMINOPHEN 325MG TABLET PO PRN (19:15)
[2018-10-28] MEDS ORDERED: GUAIFENESIN 200MG/10ML SUGAR FREE UDC PO PRN (19:15)
[2018-10-28] MEDS ORDERED: HYDROCODONE/ACETAMINOPHEN 5/325MG TABLET PO PRN (19:15)
[2018-10-28] MEDS ORDERED: IPRATROPIUM/ALBUTEROL 0.5-3(2.5)MG/3ML NEB INH PRN (19:15)
[2018-10-28] MEDS: CLONIDINE 0.1MG TABLET PO PRN (21:10)
[2018-10-28] MEDS: DIPHENHYDRAMINE 50MG/ML VIAL IV PRN (21:50)
[2018-10-28] MEDS ORDERED: HYDRALAZINE HCL 25MG TABLET PO NR (22:00)
[2018-10-28 23:30] VITALS: BP 195/129
[2018-10-28 23:32] VITALS: BP_SYST 195; BP_DIAS 109; BP_DIAS 129
[2018-10-28] MEDS: AMLODIPINE 10MG TABLET PO SCH (23:48)
[2018-10-28] MEDS: LISINOPRIL 20MG TABLET PO SCH (23:48)
[2018-10-28] MEDS: LORAZEPAM 2MG/ML CPJ IV PRN (23:48)
[2018-10-29] MEDS: DIPHENHYDRAMINE 50MG/ML VIAL IV PRN ×4 (01:38→23:29)
[2018-10-29 04:00] VITALS: BP 161/111
[2018-10-29] MEDS: LORAZEPAM 2MG/ML CPJ IV PRN ×3 (04:36→21:41)
[2018-10-29] MEDS: HYDRALAZINE HCL 25MG TABLET PO SCH ×3 (05:18→21:41)
[2018-10-29 06:15] LABS: HEMOGLOBIN. 9.1 g/dL (12.0-16.0); MEAN CORPUSCULAR HEMOGLOBIN 30.8 pg (28.0-32.0); MEAN CORPUSCULAR VOLUME 91.5 fL (81.0-99.0); MEAN PLATELET VOLUME 7.7 fl (7.4-10.4); PLATELET 184 x1000/uL (130-400); RED BLOOD CELL COUNT 2.95 mill/uL (4.2-5.4); RED CELL DISTRIBUTION WIDTH 19.5 % (11.6-14.6)
[2018-10-29 07:54] LABS: CHLORIDE 104 mEq/L (98-107)
[2018-10-29 08:00] VITALS: BP 177/126
[2018-10-29] MEDS: LISINOPRIL 20MG TABLET PO SCH (08:47)
[2018-10-29] MEDS: AMLODIPINE 10MG TABLET PO SCH (08:47)
[2018-10-29] MEDS: HYDROMORPHONE HCL/PF 2MG/ML CPJ IV PRN ×3 (09:26→22:09)
[2018-10-29] MEDS: DIPHENHYDRAMINE 50MG/ML VIAL IV NR ×2 (09:27→22:09)
[2018-10-29 12:00] VITALS: BP 183/124
[2018-10-29] MEDS: CLONIDINE 0.1MG TABLET PO PRN (12:37)
[2018-10-29 13:12] LABS: PLATELET ESTIMATE NORMAL
[2018-10-29 16:00] VITALS: BP 172/123
[2018-10-29 20:00] VITALS: BP 172/101
[2018-10-30] VITALS: BP 155/94
[2018-10-30] MEDS: LORAZEPAM 2MG/ML CPJ IV PRN ×3 (02:16→20:12)
[2018-10-30 04:00] VITALS: BP 193/96
[2018-10-30] MEDS: HYDRALAZINE HCL 25MG TABLET PO SCH ×3 (04:33→21:28)
[2018-10-30] MEDS: CLONIDINE 0.1MG TABLET PO PRN ×3 (04:33→20:12)
[2018-10-30] MEDS: HYDROMORPHONE HCL/PF 2MG/ML CPJ IV PRN ×3 (04:33→18:28)
[2018-10-30] MEDS: DIPHENHYDRAMINE 50MG/ML VIAL IV PRN ×4 (04:40→21:28)
[2018-10-30 07:04] LABS: HEMATOCRIT. 25.4 % (36.0-48.0); HEMOGLOBIN. 8.6 g/dL (12.0-16.0); MEAN CORPUSCULAR VOLUME 91.4 fL (81.0-99.0); MEAN PLATELET VOLUME 7.6 fl (7.4-10.4); PLATELET 175 x1000/uL (130-400); RED BLOOD CELL COUNT 2.77 mill/uL (4.2-5.4); RED CELL DISTRIBUTION WIDTH 19.7 % (11.6-14.6)
[2018-10-30 08:00] VITALS: BP 179/119
[2018-10-30] MEDS: AMLODIPINE 10MG TABLET PO SCH (08:47)
[2018-10-30] MEDS: LISINOPRIL 20MG TABLET PO SCH (08:47)
[2018-10-30 10:32] LABS: PLATELET ESTIMATE NORMAL
[2018-10-30 12:00] VITALS: BP 183/115
[2018-10-30 16:00] VITALS: BP 163/100
[2018-10-30 20:00] VITALS: BP 170/112
[2018-10-31] VITALS (7 sets, daily range): BP systolic 119–173; BP diastolic 75–106
[2018-10-31] MEDS: HYDROMORPHONE HCL/PF 2MG/ML CPJ IV PRN ×4 (00:25→22:26)
[2018-10-31] MEDS: LORAZEPAM 2MG/ML CPJ IV PRN ×4 (00:29→19:42)
[2018-10-31] MEDS: DIPHENHYDRAMINE 50MG/ML VIAL IV PRN (02:59)
[2018-10-31] MEDS: HYDRALAZINE HCL 25MG TABLET PO SCH ×3 (05:37→22:26)
[2018-10-31] MEDS: LISINOPRIL 20MG TABLET PO SCH (09:00)
[2018-10-31] MEDS: AMLODIPINE 10MG TABLET PO SCH (09:00)
[2018-10-31] MEDS: DIPHENHYDRAMINE 50MG/ML VIAL IV NR ×2 (12:52→17:32)
[2018-11-01] VITALS: BP 163/99
[2018-11-01] MEDS: LORAZEPAM 2MG/ML CPJ IV PRN (01:28)
[2018-11-01 04:00] VITALS: BP 107/68
[2018-11-01] MEDS: HYDROMORPHONE HCL/PF 2MG/ML CPJ IV PRN (04:22)
[2018-11-01] MEDS: HYDRALAZINE HCL 25MG TABLET PO SCH (05:30)
[2018-11-01 06:17] LABS: BASOPHILS % 1.5 % (0.0-2.0); EOSINOPHILS % 7.6 % (0.0-5.0); HEMATOCRIT. 23.4 % (36.0-48.0); HEMOGLOBIN. 8.1 g/dL (12.0-16.0); LYMPHOCYTES % 28.5 % (20.0-50.0); MEAN CORPUSCULAR HEMOGLOBIN 31.6 pg (28.0-32.0); MEAN CORPUSCULAR VOLUME 91.3 fL (81.0-99.0); MEAN PLATELET VOLUME 7.9 fl (7.4-10.4); MONOCYTES % 14.5 % (2.0-8.0); NEUTROPHILS % 47.9 % (40.0-76.0); PLATELET 174 x1000/uL (130-400); RED BLOOD CELL COUNT 2.56 mill/uL (4.2-5.4)
[2018-11-01 08:00] VITALS: BP 102/67
[2018-11-01] MEDS: AMLODIPINE 10MG TABLET PO SCH (08:57)
[2018-11-01] MEDS: LISINOPRIL 20MG TABLET PO SCH (08:58)
[2018-11-01] MEDS: DIPHENHYDRAMINE 50MG/ML VIAL IV PRN ×2 (08:58)
[2018-11-01 10:06] VITALS: BP 113/78
== END 2018-11-01 11:40 | disposition home or self-care (01) | DRG 377 ==
LOC: ER 15:01 → 7WST 18:26 → ENRESERV 21:35
PROVIDERS: ADMIT Hospitalist; ATTEND Hospitalist
PROC: 5A1D70Z Performance of Urinary Filtration, Intermittent, Less than 6 Hours Per Day (ICD-10-PCS; principal; 2018-10-29)
PROC: 5A1D70Z Performance of Urinary Filtration, Intermittent, Less than 6 Hours Per Day (ICD-10-PCS; 2018-10-31)
DX: K92.2 Gastrointestinal hemorrhage, unspecified (principal); N18.6 End stage renal disease; D62 Acute posthemorrhagic anemia; R18.8 Other ascites; I13.2 Hypertensive heart and chronic kidney disease with heart failure and with stage 5 chronic kidney disease, or end stage renal disease; E78.00 Pure hypercholesterolemia, unspecified; E03.9 Hypothyroidism, unspecified; G40.909 Epilepsy, unspecified, not intractable, without status epilepticus; F10.10 Alcohol abuse, uncomplicated; I50.9 Heart failure, unspecified; E87.5 Hyperkalemia; G89.4 Chronic pain syndrome; K82.8 Other specified diseases of gallbladder; D63.1 Anemia in chronic kidney disease; K76.9 Liver disease, unspecified; Z99.2 Dependence on renal dialysis; Z91.018 Allergy to other foods; Z91.15 Patient's noncompliance with renal dialysis; Z79.899 Other long term (current) drug therapy
CPT/HCPCS: 36415; 71045; 74176; 80048; 83880; 84484; 86850; 86900; 93005; 93970; 96374; 96375; 99285; J0360; J1170; J1200; J2060; J2270; J2405; J7030

== ENCOUNTER 2018-11-06 19:40 | Emergency (ER) | payer MEDICARE, MEDICAID ==
[~2018-11-06] VITALS: Ht 165.1 cm; Wt 57.0 kg
[2018-11-06 23:31] LABS: CHLORIDE 98 mEq/L (98-107)
[2018-11-06 23:45] LABS: BASOPHILS % 0.9 % (0.0-2.0); HEMOGLOBIN. 7.1 g/dL (12.0-16.0); LYMPHOCYTES % 13.6 % (20.0-50.0); MEAN CORPUSCULAR HEMOGLOBIN 31.3 pg (28.0-32.0); MEAN CORPUSCULAR VOLUME 91.8 fL (81.0-99.0); MEAN PLATELET VOLUME 7.8 fl (7.4-10.4); MONOCYTES % 12.1 % (2.0-8.0); NEUTROPHILS % 70.4 % (40.0-76.0); PLATELET 144 x1000/uL (130-400); RED BLOOD CELL COUNT 2.26 mill/uL (4.2-5.4); RED CELL DISTRIBUTION WIDTH 19.9 % (11.6-14.6)
[2018-11-06 23:49] LABS: HEMATOCRIT. 20.7 % (36.0-48.0)
[2018-11-07 00:32] VITALS: BP 155/89
== END 2018-11-07 01:16 | disposition home or self-care (01) ==
LOC: ER 19:40
DX: J06.9 Acute upper respiratory infection, unspecified (principal); D53.9 Nutritional anemia, unspecified; N18.6 End stage renal disease; H92.09 Otalgia, unspecified ear; I50.9 Heart failure, unspecified; R56.9 Unspecified convulsions; Z79.899 Other long term (current) drug therapy; Z91.018 Allergy to other foods; Z99.2 Dependence on renal dialysis
CPT/HCPCS: 36415; 71045; 82962; 83605; 87804; 99284

== ENCOUNTER 2018-11-18 19:15 | Inpatient (IN) | payer MEDICARE, MEDICAID ==
[~2018-11-18] VITALS: Ht 170.2 cm; Wt 57.6 kg
[~2018-11-18 19:15] MED LIST changes: -TRAM50TA3 PO
[2018-11-18 21:44] LABS: BASOPHILS % 1.5 % (0.0-2.0); EOSINOPHILS % 7.9 % (0.0-5.0); HEMATOCRIT. 24.5 % (36.0-48.0); HEMOGLOBIN. 8.3 g/dL (12.0-16.0); LYMPHOCYTES % 30.4 % (20.0-50.0); MEAN CORPUSCULAR HEMOGLOBIN 31.6 pg (28.0-32.0); MEAN CORPUSCULAR VOLUME 92.8 fL (81.0-99.0); MEAN PLATELET VOLUME 6.5 fl (7.4-10.4); MONOCYTES % 12.3 % (2.0-8.0); NEUTROPHILS % 47.9 % (40.0-76.0); PLATELET 250 x1000/uL (130-400); RED BLOOD CELL COUNT 2.64 mill/uL (4.2-5.4); RED CELL DISTRIBUTION WIDTH 18.8 % (11.6-14.6)
[2018-11-18 21:48] LABS: CHLORIDE 99 mEq/L (98-107)
[2018-11-18] MEDS ORDERED: FUROSEMIDE 100MG/10ML VIAL IV STA (22:06)
[2018-11-18] MEDS ORDERED: ALBUTEROL (0.083%) 2.5MG/3ML NEB HHN ONE (22:15)
[2018-11-18] MEDS ORDERED: SODIUM BICARBONATE 8.4% 1 MEQ/ML 50ML SYR IV ONE (22:15)
[2018-11-18] MEDS ORDERED: INSULIN REGULAR (HUMULIN R) 300UNITS/3ML IV ONE (22:15)
[2018-11-18] MEDS ORDERED: DEXTROSE 50% WATER 50ML SYRINGE IV ONE (22:15)
[2018-11-18] MEDS ORDERED: INSULIN REGULAR (HUMULIN R) 300UNITS/3ML IV NR (22:30)
[2018-11-18] MEDS ORDERED: MORPHINE SULFATE 4 MG/ML CPJ (NOT FOR IM USE) IV ONE (23:00)
[2018-11-18] MEDS ORDERED: MAGNESIUM/ALUMINUM HYDROXIDE/SIMETHICONE 30ML UDC PO PRN (23:45)
[2018-11-18] MEDS ORDERED: DOCUSATE SODIUM 100MG CAPSULE PO PRN (23:45)
[2018-11-18] MEDS ORDERED: IPRATROPIUM/ALBUTEROL 0.5-3(2.5)MG/3ML NEB INH PRN (23:45)
[2018-11-18] MEDS ORDERED: GUAIFENESIN 200MG/10ML SUGAR FREE UDC PO PRN (23:45)
[2018-11-18] MEDS ORDERED: ONDANSETRON HCL 4MG/2ML INJ IV PRN (23:45)
[2018-11-18] MEDS ORDERED: ACETAMINOPHEN 325MG TABLET PO PRN (23:45)
[2018-11-18] MEDS ORDERED: HYDROCODONE/ACETAMINOPHEN 10/325MG TABLET PO PRN (23:45)
[2018-11-19 01:03] VITALS: BP_SYST 128; BP_SYST 167; BP_DIAS 75; BP_DIAS 97
[2018-11-19] MEDS: HYDROMORPHONE HCL/PF 2MG/ML CPJ IV PRN ×5 (01:45→20:27)
[2018-11-19] MEDS: DIPHENHYDRAMINE 50MG/ML VIAL IV PRN ×4 (03:05→17:30)
[2018-11-19] MEDS ORDERED: CARV12.545 PO (03:14)
[2018-11-19] MEDS: HYDRALAZINE 20MG/ML VIAL IV PRN (04:26)
[2018-11-19] MEDS: SODIUM CHLORIDE 0.9% INJ 3ML FLUSH IVF SCH ×3 (06:05→20:27)
[2018-11-19 06:17] LABS: HEMATOCRIT. 23.4 % (36.0-48.0); HEMOGLOBIN. 8.1 g/dL (12.0-16.0); MEAN CORPUSCULAR HEMOGLOBIN 31.5 pg (28.0-32.0); MEAN CORPUSCULAR VOLUME 91.3 fL (81.0-99.0); MEAN PLATELET VOLUME 6.7 fl (7.4-10.4); PLATELET 247 x1000/uL (130-400); RED BLOOD CELL COUNT 2.57 mill/uL (4.2-5.4); RED CELL DISTRIBUTION WIDTH 18.4 % (11.6-14.6)
[2018-11-19 06:26] LABS: CHLORIDE 97 mEq/L (98-107)
[2018-11-19 06:39] LABS: CREATINE KINASE 73 IU/L (26-192)
[2018-11-19 06:41] LABS: CREATINE KINASE MB FRACTION 1.7 ng/mL (0.5-3.6)
[2018-11-19 08:15] VITALS: BP 167/100
[2018-11-19 09:25] LABS: PLATELET ESTIMATE NORMAL
[2018-11-19] MEDS: ENOXAPARIN 30MG/0.3ML SYR SUBCUT SCH (09:49)
[2018-11-19] MEDS: GUAIFENESIN 600MG ER TABLET PO SCH ×2 (12:16→20:27)
[2018-11-19 16:58] LABS: CREATINE KINASE MB FRACTION 1.8 ng/mL (0.5-3.6)
[2018-11-19 20:00] VITALS: BP 184/111
[2018-11-19] MEDS: CLONIDINE 0.1MG TABLET PO PRN (20:31)
[2018-11-20] VITALS: BP 181/104
[2018-11-20] MEDS: LORAZEPAM 2MG/ML CPJ IV PRN (00:14)
[2018-11-20] MEDS: HYDRALAZINE 20MG/ML VIAL IV PRN ×3 (00:14→18:36)
[2018-11-20 02:00] VITALS: BP 157/93
[2018-11-20] MEDS: DIPHENHYDRAMINE 50MG/ML VIAL IV PRN ×4 (03:17→18:37)
[2018-11-20 03:40] VITALS: BP 173/101
[2018-11-20] MEDS: CLONIDINE 0.1MG TABLET PO PRN ×3 (03:47→21:26)
[2018-11-20] MEDS: HYDROMORPHONE HCL/PF 2MG/ML CPJ IV PRN ×4 (04:50→21:27)
[2018-11-20] MEDS: CARVEDILOL 12.5MG TABLET PO SCH ×2 (04:50→21:26)
[2018-11-20] MEDS: LEVOTHYROXINE SODIUM 50MCG TABLET PO SCH (06:12)
[2018-11-20] MEDS: SODIUM CHLORIDE 0.9% INJ 3ML FLUSH IVF SCH ×3 (06:12→23:55)
[2018-11-20] MEDS ORDERED: MEDICATION NOT ON FORMULARY EA (Alprazolam (Xanax) 1 MG) PO PRN (08:30)
[2018-11-20] MEDS ORDERED: MEDICATION NOT ON FORMULARY EA (Zolpidem Tartrate (Ambien Pak) 10 MG) PO PRN (08:30)
[2018-11-20] MEDS: PANTOPRAZOLE 40MG DR TABLET PO SCH (08:41)
[2018-11-20] MEDS: PHENYTOIN SODIUM EXTENDED 100MG CAPSULE PO SCH ×3 (08:42→18:37)
[2018-11-20] MEDS: GUAIFENESIN 600MG ER TABLET PO SCH ×2 (08:42→21:26)
[2018-11-20] MEDS: ENOXAPARIN 30MG/0.3ML SYR SUBCUT SCH (08:42)
[2018-11-20] MEDS ORDERED: ALPRAZOLAM 0.5 MG TABLET PO PRN (08:45)
[2018-11-20] MEDS ORDERED: MEDICATION NOT ON FORMULARY EA (Pantoprazole Sodium (Protonix) 40 MG) PO SCH (09:00)
[2018-11-20 12:00] VITALS: BP 190/109
[2018-11-20 16:00] VITALS: BP 186/111
[2018-11-20 20:13] VITALS: BP 165/104
[2018-11-20] MEDS ORDERED: ZOLPIDEM TARTRATE 5MG TABLET PO PRN (21:00)
[2018-11-21 00:17] VITALS: BP 137/90
[2018-11-21] MEDS: DIPHENHYDRAMINE 50MG/ML VIAL IV PRN ×3 (00:33→09:16)
[2018-11-21] MEDS: HYDROMORPHONE HCL/PF 2MG/ML CPJ IV PRN ×2 (03:08→06:16)
[2018-11-21 04:26] VITALS: BP 148/95
[2018-11-21] MEDS: CLONIDINE 0.1MG TABLET PO PRN (04:50)
[2018-11-21] MEDS: PANTOPRAZOLE 40MG DR TABLET PO SCH (06:15)
[2018-11-21] MEDS: LEVOTHYROXINE SODIUM 50MCG TABLET PO SCH (06:15)
[2018-11-21] MEDS: SODIUM CHLORIDE 0.9% INJ 3ML FLUSH IVF SCH (06:16)
[2018-11-21 06:33] LABS: HEMATOCRIT. 21.3 % (36.0-48.0); HEMOGLOBIN. 7.4 g/dL (12.0-16.0); MEAN CORPUSCULAR HEMOGLOBIN 31.8 pg (28.0-32.0); MEAN CORPUSCULAR VOLUME 91.9 fL (81.0-99.0); MEAN PLATELET VOLUME 7.1 fl (7.4-10.4); PLATELET 213 x1000/uL (130-400); RED BLOOD CELL COUNT 2.32 mill/uL (4.2-5.4); RED CELL DISTRIBUTION WIDTH 17.7 % (11.6-14.6)
[2018-11-21 08:00] VITALS: BP 163/105
[2018-11-21] MEDS: GUAIFENESIN 600MG ER TABLET PO SCH (08:20)
[2018-11-21] MEDS: LORAZEPAM 2MG/ML CPJ IV PRN (08:20)
[2018-11-21] MEDS: CARVEDILOL 12.5MG TABLET PO SCH (08:20)
[2018-11-21] MEDS: PHENYTOIN SODIUM EXTENDED 100MG CAPSULE PO SCH (08:20)
[2018-11-21] MEDS: ENOXAPARIN 30MG/0.3ML SYR SUBCUT SCH (09:16)
[2018-11-21 10:32] LABS: PLATELET ESTIMATE NORMAL
== END 2018-11-21 12:29 | disposition left against medical advice (07) | DRG 291 ==
LOC: ER 19:15 → 6WST 23:09 → ENRESERV 23:35
PROVIDERS: ADMIT Internal Medicine; ATTEND Internal Medicine
PROC: 5A1D70Z Performance of Urinary Filtration, Intermittent, Less than 6 Hours Per Day (ICD-10-PCS; principal; 2018-11-19)
PROC: 5A1D70Z Performance of Urinary Filtration, Intermittent, Less than 6 Hours Per Day (ICD-10-PCS; 2018-11-21)
DX: I13.2 Hypertensive heart and chronic kidney disease with heart failure and with stage 5 chronic kidney disease, or end stage renal disease (principal); N18.6 End stage renal disease; I50.21 Acute systolic (congestive) heart failure; E87.5 Hyperkalemia; D72.819 Decreased white blood cell count, unspecified; D64.9 Anemia, unspecified; E03.9 Hypothyroidism, unspecified; G40.909 Epilepsy, unspecified, not intractable, without status epilepticus; E11.22 Type 2 diabetes mellitus with diabetic chronic kidney disease; E11.649 Type 2 diabetes mellitus with hypoglycemia without coma; E78.5 Hyperlipidemia, unspecified; J45.909 Unspecified asthma, uncomplicated; R74.8 Abnormal levels of other serum enzymes; Z99.2 Dependence on renal dialysis; Z91.15 Patient's noncompliance with renal dialysis; Z91.018 Allergy to other foods; Z79.899 Other long term (current) drug therapy
CPT/HCPCS: 36415; 71045; 80051; 82550; 82553; 82962; 84484; 93005; 94644; 96374; 99285; J0360; J1170; J1200; J1650; J1815; J1940; J2060; J2270; J3490; J7611

== ENCOUNTER 2018-12-06 19:11 | Emergency (ER) | payer MEDICARE, MEDICAID ==
[~2018-12-06] VITALS: Ht 165.1 cm; Wt 55.0 kg
[~2018-12-06 19:11] MED LIST changes: +CARV12.545 PO; -COR6 PO; -FLUO-124 PO; -FURO40TA5 PO
[2018-12-06] MEDS ORDERED: HYDROCODONE/ACETAMINOPHEN 5/325MG TABLET PO STA (23:18)
[2018-12-06] MEDS ORDERED: ONDANSETRON HCL 4MG/2ML INJ IV STA (23:18)
[2018-12-07] LABS: BASOPHILS % 2.3 % (0.0-2.0); EOSINOPHILS % 11.6 % (0.0-5.0); HEMATOCRIT. 22.5 % (36.0-48.0); HEMOGLOBIN. 7.9 g/dL (12.0-16.0); LYMPHOCYTES % 25.5 % (20.0-50.0); MEAN CORPUSCULAR HEMOGLOBIN 32.3 pg (28.0-32.0); MEAN CORPUSCULAR VOLUME 91.9 fL (81.0-99.0); MEAN PLATELET VOLUME 6.9 fl (7.4-10.4); MONOCYTES % 12.9 % (2.0-8.0); NEUTROPHILS % 47.7 % (40.0-76.0); PLATELET 155 x1000/uL (130-400); RED BLOOD CELL COUNT 2.44 mill/uL (4.2-5.4); RED CELL DISTRIBUTION WIDTH 20.5 % (11.6-14.6)
[2018-12-07 00:05] LABS: CHLORIDE 104 mEq/L (98-107)
[2018-12-07] MEDS: ONDANSETRON HCL 4MG/2ML INJ IV NR ×2 (00:58→01:00)
[2018-12-07] MEDS: ONDANSETRON 4MG ODT PO SCH ×2 (00:58→02:07)
[2018-12-07] MEDS ORDERED: KETOROLAC 15MG/ML VIAL IV ONE (01:45)
[2018-12-07 02:13] VITALS: BP 175/99
== END 2018-12-07 02:18 | disposition home or self-care (01) ==
LOC: ER 19:11
DX: K59.00 Constipation, unspecified (principal); R10.9 Unspecified abdominal pain; I13.2 Hypertensive heart and chronic kidney disease with heart failure and with stage 5 chronic kidney disease, or end stage renal disease; I50.9 Heart failure, unspecified; N18.6 End stage renal disease; Z99.2 Dependence on renal dialysis; Z91.018 Allergy to other foods; Z79.899 Other long term (current) drug therapy
CPT/HCPCS: 36415; 74022; 80053; 83880; 84484; 85025; 93005; 96374; 99284; J1885; Q0162; J2405

== ENCOUNTER 2018-12-10 19:09 | Inpatient (IN) | payer MEDICARE, MEDICAID ==
[~2018-12-10] VITALS: Ht 170.2 cm; Wt 58.1 kg
[2018-12-10] MEDS ORDERED: ONDANSETRON HCL 4MG/2ML INJ IV STA (20:14)
[2018-12-10] MEDS ORDERED: MORPHINE SULFATE 4 MG/ML CPJ (NOT FOR IM USE) IV STA (20:14)
[2018-12-10] MEDS ORDERED: DIPHENHYDRAMINE 50MG/ML VIAL IV ONE (20:15)
[2018-12-10 20:57] LABS: BASOPHILS % 1.4 % (0.0-2.0); EOSINOPHILS % 7.2 % (0.0-5.0); HEMATOCRIT. 22.8 % (36.0-48.0); HEMOGLOBIN. 7.8 g/dL (12.0-16.0); LYMPHOCYTES % 20.3 % (20.0-50.0); MEAN CORPUSCULAR VOLUME 93.8 fL (81.0-99.0); MEAN PLATELET VOLUME 8.2 fl (7.4-10.4); MONOCYTES % 7.9 % (2.0-8.0); NEUTROPHILS % 63.2 % (40.0-76.0); PLATELET 151 x1000/uL (130-400); RED BLOOD CELL COUNT 2.42 mill/uL (4.2-5.4); RED CELL DISTRIBUTION WIDTH 21.2 % (11.6-14.6)
[2018-12-10 21:04] LABS: CHLORIDE 100 mEq/L (98-107)
[2018-12-10 21:06] LABS: PROTHROMBIN TIME 10.7 sec (9.6-11.0)
[2018-12-10] MEDS ORDERED: HYDRALAZINE 20MG/ML VIAL ONE (23:49)
[2018-12-11] VITALS (10 sets, daily range): BP systolic 128–184; BP diastolic 80–120
[2018-12-11] MEDS ORDERED: DIPHENHYDRAMINE 50MG/ML VIAL IV ONE (00:15)
[2018-12-11] MEDS ORDERED: MORPHINE SULFATE 4 MG/ML CPJ (NOT FOR IM USE) IV ONE (00:15)
[2018-12-11] MEDS ORDERED: HYDROCODONE/ACETAMINOPHEN 5/325MG TABLET PO PRN (01:15)
[2018-12-11] MEDS ORDERED: ONDANSETRON HCL 4MG/2ML INJ IV PRN (01:15)
[2018-12-11] MEDS: DIPHENHYDRAMINE 50MG/ML VIAL IV PRN ×3 (02:33→19:29)
[2018-12-11 05:52] LABS: CHLORIDE 101 mEq/L (98-107)
[2018-12-11 06:19] LABS: BASOPHILS % 1.5 % (0.0-2.0); EOSINOPHILS % 6.5 % (0.0-5.0); LYMPHOCYTES % 18.4 % (20.0-50.0); MEAN CORPUSCULAR HEMOGLOBIN 31.7 pg (28.0-32.0); MEAN CORPUSCULAR VOLUME 94.1 fL (81.0-99.0); MEAN PLATELET VOLUME 8.4 fl (7.4-10.4); MONOCYTES % 10.3 % (2.0-8.0); NEUTROPHILS % 63.3 % (40.0-76.0); PLATELET 144 x1000/uL (130-400); RED BLOOD CELL COUNT 2.18 mill/uL (4.2-5.4); RED CELL DISTRIBUTION WIDTH 21.5 % (11.6-14.6)
[2018-12-11 06:50] LABS: HEMATOCRIT. 20.5 % (36.0-48.0); HEMOGLOBIN. 6.9 g/dL (12.0-16.0)
[2018-12-11] MEDS: HYDROMORPHONE HCL/PF 2MG/ML CPJ IV PRN ×3 (09:20→21:26)
[2018-12-11] MEDS: CLONIDINE 0.1MG TABLET PO PRN (17:06)
[2018-12-11] MEDS ORDERED: CARVEDILOL 12.5MG TABLET PO SCH (19:30)
[2018-12-11] MEDS ORDERED: HYDRALAZINE 20MG/ML VIAL IV PRN (19:30)
[2018-12-11] MEDS: CARVEDILOL 12.5MG TABLET PO SCH (20:27)
[2018-12-11] MEDS: PHENYTOIN SODIUM EXTENDED 100MG CAPSULE PO SCH (20:27)
[2018-12-12] VITALS (8 sets, daily range): BP systolic 99–178; BP diastolic 70–114
[2018-12-12] MEDS ORDERED: ALPRAZOLAM 0.5 MG TABLET PO SCH (01:00)
[2018-12-12] MEDS: DIPHENHYDRAMINE 50MG/ML VIAL IV PRN ×4 (01:44→22:11)
[2018-12-12] MEDS ORDERED: HYDROCODONE/ACETAMINOPHEN 5/325MG TABLET PO PRN (06:30)
[2018-12-12] MEDS: HYDROMORPHONE HCL/PF 2MG/ML CPJ IV PRN ×3 (06:48→19:44)
[2018-12-12] MEDS: CARVEDILOL 12.5MG TABLET PO SCH ×2 (08:45→17:00)
[2018-12-12] MEDS: CLONIDINE 0.1MG TABLET PO PRN (08:45)
[2018-12-12] MEDS: PHENYTOIN SODIUM EXTENDED 100MG CAPSULE PO SCH ×3 (08:45→17:00)
[2018-12-12 08:49] LABS: HEMATOCRIT. 21.7 % (36.0-48.0); HEMOGLOBIN. 7.4 g/dL (12.0-16.0); MEAN CORPUSCULAR HEMOGLOBIN 31.7 pg (28.0-32.0); MEAN CORPUSCULAR VOLUME 92.8 fL (81.0-99.0); MEAN PLATELET VOLUME 8.3 fl (7.4-10.4); PLATELET 128 x1000/uL (130-400); RED BLOOD CELL COUNT 2.34 mill/uL (4.2-5.4); RED CELL DISTRIBUTION WIDTH 20.8 % (11.6-14.6)
[2018-12-12] MEDS ORDERED: LIDOCAINE HCL 1% 20ML VIAL (Pyxis) INJ ONE (08:55)
[2018-12-12] MEDS ORDERED: SODIUM BICARBONATE 4% (2.4MEQ) 5ML VIAL IV ONE (08:55)
[2018-12-12 09:54] LABS: PLATELET ESTIMATE NORMAL
[2018-12-12] MEDS ORDERED: HEPARIN SODIUM 1,000 UNIT/1ML VIAL IV NR (17:00)
[2018-12-13] VITALS: BP 147/90
[2018-12-13] MEDS ORDERED: ZOLPIDEM TARTRATE 5MG TABLET PO PRN (00:30)
[2018-12-13] MEDS: HYDROMORPHONE HCL/PF 2MG/ML CPJ IV PRN ×2 (01:45→08:33)
[2018-12-13 04:00] VITALS: BP 137/87
[2018-12-13] MEDS: DIPHENHYDRAMINE 50MG/ML VIAL IV PRN ×2 (04:12→10:21)
[2018-12-13 06:56] LABS: HEMATOCRIT. 23.1 % (36.0-48.0); HEMOGLOBIN. 7.8 g/dL (12.0-16.0); MEAN CORPUSCULAR HEMOGLOBIN 31.6 pg (28.0-32.0); MEAN CORPUSCULAR VOLUME 93.6 fL (81.0-99.0); MEAN PLATELET VOLUME 8.2 fl (7.4-10.4); PLATELET 153 x1000/uL (130-400); RED BLOOD CELL COUNT 2.47 mill/uL (4.2-5.4); RED CELL DISTRIBUTION WIDTH 20.5 % (11.6-14.6)
[2018-12-13 08:16] VITALS: BP 122/68
[2018-12-13] MEDS: PHENYTOIN SODIUM EXTENDED 100MG CAPSULE PO SCH (08:25)
[2018-12-13] MEDS: CARVEDILOL 12.5MG TABLET PO SCH (08:26)
[2018-12-13 11:34] VITALS: BP 140/99
[2018-12-13 11:39] VITALS: BP 140/99
[2018-12-13 12:00] VITALS: BP 140/99
[2018-12-13 12:34] LABS: PLATELET ESTIMATE NORMAL
[2018-12-21] MEDS ORDERED: CARVEDILOL 12.5MG TABLET PO SCH (21:00)
== END 2018-12-13 14:20 | disposition home or self-care (01) | DRG 432 ==
LOC: ER 21:02 → 7WST 21:20 → EDBEDREQTM 21:25 → EDBEDREQ 21:25 → ENRESERV 23:06
PROVIDERS: ADMIT Family Medicine; ATTEND Family Medicine
PROC: 5A1D70Z Performance of Urinary Filtration, Intermittent, Less than 6 Hours Per Day (ICD-10-PCS; 2018-12-11)
PROC: 30233N1 Transfusion of Nonautologous Red Blood Cells into Peripheral Vein, Percutaneous Approach (ICD-10-PCS; 2018-12-11)
PROC: 0W9G3ZZ Drainage of Peritoneal Cavity, Percutaneous Approach (ICD-10-PCS; principal; 2018-12-12)
PROC: 5A1D70Z Performance of Urinary Filtration, Intermittent, Less than 6 Hours Per Day (ICD-10-PCS; 2018-12-12)
DX: K70.31 Alcoholic cirrhosis of liver with ascites (principal); N18.6 End stage renal disease; I13.2 Hypertensive heart and chronic kidney disease with heart failure and with stage 5 chronic kidney disease, or end stage renal disease; I50.9 Heart failure, unspecified; D63.1 Anemia in chronic kidney disease; F10.10 Alcohol abuse, uncomplicated; F41.9 Anxiety disorder, unspecified; G47.00 Insomnia, unspecified; W18.30XA Fall on same level, unspecified, initial encounter; Y93.89 Activity, other specified; Y92.89 Other specified places as the place of occurrence of the external cause; Y99.8 Other external cause status; Z91.15 Patient's noncompliance with renal dialysis; Z91.018 Allergy to other foods; Z99.2 Dependence on renal dialysis; Z79.890 Hormone replacement therapy; Z79.899 Other long term (current) drug therapy
CPT/HCPCS: 36415; 49083; 71045; 73564; 80048; 83880; 84484; 86850; 86900; 86920; 93005; 96374; 99285; C1893; J0360; J1170; J1200; J1644; J2270; J2405; J3490; P9016

== ENCOUNTER 2018-12-22 16:51 | Inpatient (IN) | payer MEDICARE, MEDICAID ==
[~2018-12-22] VITALS: Ht 162.6 cm; Wt 54.9 kg
[~2018-12-22 16:51] MED LIST changes: -PROT40 PO
[2018-12-22 17:43] LABS: EOSINOPHILS % 10.5 % (0.0-5.0); LYMPHOCYTES % 21.2 % (20.0-50.0); MEAN CORPUSCULAR HEMOGLOBIN 32.8 pg (28.0-32.0); MEAN CORPUSCULAR VOLUME 94.4 fL (81.0-99.0); MEAN PLATELET VOLUME 7.6 fl (7.4-10.4); MONOCYTES % 12.6 % (2.0-8.0); NEUTROPHILS % 54.7 % (40.0-76.0); PLATELET 170 x1000/uL (130-400); RED BLOOD CELL COUNT 2.06 mill/uL (4.2-5.4); RED CELL DISTRIBUTION WIDTH 19.8 % (11.6-14.6)
[2018-12-22 17:47] LABS: CHLORIDE 100 mEq/L (98-107)
[2018-12-22 17:48] LABS: PROTHROMBIN TIME 10.7 sec (9.6-11.0)
[2018-12-22 17:50] LABS: HEMOGLOBIN. 6.8 g/dL (12.0-16.0)
[2018-12-22 17:51] LABS: HEMATOCRIT. 19.4 % (36.0-48.0)
[2018-12-22] MEDS ORDERED: DIPHENHYDRAMINE 50MG/ML VIAL IV ONE (18:15)
[2018-12-22] MEDS ORDERED: MORPHINE SULFATE 4 MG/ML CPJ (NOT FOR IM USE) IV ONE (18:15)
[2018-12-22] MEDS ORDERED: DOCUSATE SODIUM 100MG CAPSULE PO PRN (19:45)
[2018-12-22] MEDS ORDERED: HYDROCODONE/ACETAMINOPHEN 5/325MG TABLET PO PRN (19:45)
[2018-12-22] MEDS ORDERED: GUAIFENESIN 200MG/10ML SUGAR FREE UDC PO PRN (19:45)
[2018-12-22] MEDS ORDERED: ONDANSETRON HCL 4MG/2ML INJ IV PRN (19:45)
[2018-12-22] MEDS ORDERED: IPRATROPIUM/ALBUTEROL 0.5-3(2.5)MG/3ML NEB INH PRN (19:45)
[2018-12-22] MEDS ORDERED: MAGNESIUM/ALUMINUM HYDROXIDE/SIMETHICONE 30ML UDC PO PRN (19:45)
[2018-12-22 19:55] LABS: PHOSPHORUS 2.5 mg/dL (2.5-4.9)
[2018-12-22 22:29] LABS: CREATINE KINASE 67 IU/L (26-192)
[2018-12-22 22:30] LABS: CREATINE KINASE MB FRACTION < 1.0 ng/mL (0.5-3.6)
[2018-12-22 23:00] VITALS: BP 183/124
[2018-12-23] VITALS (11 sets, daily range): BP systolic 129–183; BP diastolic 90–129
[2018-12-23] MEDS: DIPHENHYDRAMINE 50MG/ML VIAL IV PRN ×5 (00:27→22:31)
[2018-12-23] MEDS: CLONIDINE 0.1MG TABLET PO PRN ×2 (00:27→05:52)
[2018-12-23] MEDS: MORPHINE SULFATE 2 MG/ML CPJ (NOT FOR IM USE) IV PRN ×3 (00:56→09:34)
[2018-12-23] MEDS ORDERED: DEXTROSE 50% WATER 50ML SYRINGE IV PRN (01:45)
[2018-12-23] MEDS: LORAZEPAM 0.5MG TABLET PO PRN ×2 (02:05→20:43)
[2018-12-23 06:48] LABS: BASOPHILS % 0.9 % (0.0-2.0); EOSINOPHILS % 5.6 % (0.0-5.0); HEMATOCRIT. 21.7 % (36.0-48.0); HEMOGLOBIN. 7.4 g/dL (12.0-16.0); LYMPHOCYTES % 14.4 % (20.0-50.0); MEAN CORPUSCULAR HEMOGLOBIN 32.1 pg (28.0-32.0); MEAN CORPUSCULAR VOLUME 93.4 fL (81.0-99.0); MEAN PLATELET VOLUME 7.7 fl (7.4-10.4); MONOCYTES % 9.3 % (2.0-8.0); NEUTROPHILS % 69.8 % (40.0-76.0); PLATELET 174 x1000/uL (130-400); RED BLOOD CELL COUNT 2.32 mill/uL (4.2-5.4); RED CELL DISTRIBUTION WIDTH 19.4 % (11.6-14.6)
[2018-12-23] MEDS: BLOOD SUGAR DIAGNOSTIC STRIP TEST SCH ×4 (07:06→21:00)
[2018-12-23 07:21] LABS: CHLORIDE 100 mEq/L (98-107)
[2018-12-23 07:32] LABS: HDL CHOLESTEROL 79 mg/dL (40-59); LDL CHOLESTEROL 117 mg/dL (5-100)
[2018-12-23 07:33] LABS: CREATINE KINASE 62 IU/L (26-192)
[2018-12-23 07:38] LABS: CREATINE KINASE MB FRACTION < 1.0 ng/mL (0.5-3.6)
[2018-12-23] MEDS: INSULIN LISPRO 100 UNITS/ML SUBCUT SCH ×4 (07:42→21:00)
[2018-12-23] MEDS: ACETAMINOPHEN 325MG TABLET PO PRN ×2 (08:24→22:34)
[2018-12-23] MEDS: HYDRALAZINE 20MG/ML VIAL IV PRN ×2 (08:24→22:32)
[2018-12-23] MEDS ORDERED: DIPHENHYDRAMINE 50MG/ML VIAL IV SCH (11:00)
[2018-12-23] MEDS: LEVOTHYROXINE SODIUM 25MCG TABLET PO SCH (12:07)
[2018-12-23] MEDS: FOLIC ACID/VITAMIN B COMP W-C TABLET PO SCH (12:07)
[2018-12-23] MEDS: CALCIUM ACETATE 667MG CAPSULE PO SCH ×2 (13:37→18:10)
[2018-12-23] MEDS: HYDROMORPHONE HCL/PF 2MG/ML CPJ IV PRN ×2 (13:47→19:33)
[2018-12-23] MEDS: PIPERACILLIN/TAZOBACTAM 2.25 G in DEXTROSE 5% WATER 50 ML IV SCH ×2 (13:48→21:15)
[2018-12-23] MEDS: HYDRALAZINE HCL 25MG TABLET PO SCH ×2 (13:48→22:00)
[2018-12-23] MEDS ORDERED: HEPARIN SODIUM 1,000 UNIT/1ML VIAL IV NR (15:00)
[2018-12-23] MEDS: CARVEDILOL 12.5MG TABLET PO SCH ×2 (15:15→20:44)
[2018-12-23] MEDS: ALPRAZOLAM 0.5 MG TABLET PO SCH (15:15)
[2018-12-23] MEDS ORDERED: VANCOMYCIN 1500MG in DEXTROSE 5% WATER 250ML IV NR (18:00)
[2018-12-23] MEDS: PHENYTOIN SODIUM EXTENDED 100MG CAPSULE PO SCH (18:32)
[2018-12-23] MEDS: ATORVASTATIN CALCIUM 20MG TABLET PO SCH (20:43)
[2018-12-24] MEDS: ZOLPIDEM TARTRATE 5MG TABLET PO PRN ×2 (00:01→21:49)
[2018-12-24 00:02] VITALS: BP 143/86
[2018-12-24] MEDS: HYDROMORPHONE HCL/PF 2MG/ML CPJ IV PRN ×4 (01:33→21:47)
[2018-12-24 04:00] VITALS: BP 162/103
[2018-12-24] MEDS: DIPHENHYDRAMINE 50MG/ML VIAL IV PRN ×4 (04:09→20:26)
[2018-12-24] MEDS: CLONIDINE 0.1MG TABLET PO PRN (04:10)
[2018-12-24] MEDS: PIPERACILLIN/TAZOBACTAM 2.25 G in DEXTROSE 5% WATER 50 ML IV SCH ×2 (06:20→15:55)
[2018-12-24] MEDS: HYDRALAZINE HCL 25MG TABLET PO SCH (06:21)
[2018-12-24 07:43] LABS: BASOPHILS % 1.2 % (0.0-2.0); EOSINOPHILS % 7.3 % (0.0-5.0); HEMATOCRIT. 21.4 % (36.0-48.0); HEMOGLOBIN. 7.3 g/dL (12.0-16.0); LYMPHOCYTES % 18.4 % (20.0-50.0); MEAN CORPUSCULAR HEMOGLOBIN 32.2 pg (28.0-32.0); MEAN CORPUSCULAR VOLUME 94.9 fL (81.0-99.0); MEAN PLATELET VOLUME 8.2 fl (7.4-10.4); MONOCYTES % 13.4 % (2.0-8.0); NEUTROPHILS % 59.7 % (40.0-76.0); PLATELET 164 x1000/uL (130-400); RED BLOOD CELL COUNT 2.26 mill/uL (4.2-5.4)
[2018-12-24 08:00] VITALS: BP 150/100
[2018-12-24] MEDS: INSULIN LISPRO 100 UNITS/ML SUBCUT SCH ×4 (08:10→21:00)
[2018-12-24] MEDS: ALPRAZOLAM 0.5 MG TABLET PO SCH (08:55)
[2018-12-24] MEDS: AMLODIPINE 10MG TABLET PO SCH (08:56)
[2018-12-24] MEDS: PHENYTOIN SODIUM EXTENDED 100MG CAPSULE PO SCH ×3 (08:56→17:45)
[2018-12-24] MEDS: FOLIC ACID/VITAMIN B COMP W-C TABLET PO SCH (08:56)
[2018-12-24] MEDS: CALCIUM ACETATE 667MG CAPSULE PO SCH ×3 (08:57→17:45)
[2018-12-24] MEDS: CARVEDILOL 12.5MG TABLET PO SCH ×2 (08:57→20:37)
[2018-12-24] MEDS: LEVOTHYROXINE SODIUM 25MCG TABLET PO SCH (08:57)
[2018-12-24 12:00] VITALS: BP 121/78
[2018-12-24] MEDS: BLOOD SUGAR DIAGNOSTIC STRIP TEST SCH ×4 (12:40→21:48)
[2018-12-24] MEDS: HYDRALAZINE HCL 100MG TABLET PO SCH ×2 (15:54→21:49)
[2018-12-24 16:00] VITALS: BP 132/91
[2018-12-24 20:00] VITALS: BP 100/56
[2018-12-24] MEDS: ATORVASTATIN CALCIUM 20MG TABLET PO SCH (20:26)
[2018-12-24] MEDS ORDERED: EPOETIN ALFA 10000UNITS/ML VIAL SUBCUT SCH (21:00)
[2018-12-24] MEDS: PIPERACILLIN/TAZ 2.25G PREMIX 50 ML IV SCH (21:49)
[2018-12-25] VITALS (8 sets, daily range): BP systolic 104–165; BP diastolic 69–102
[2018-12-25] MEDS: DIPHENHYDRAMINE 50MG/ML VIAL IV PRN ×5 (00:39→18:01)
[2018-12-25] MEDS: LORAZEPAM 0.5MG TABLET PO PRN ×2 (02:47→12:02)
[2018-12-25] MEDS: HYDROMORPHONE HCL/PF 2MG/ML CPJ IV PRN ×3 (04:51→17:00)
[2018-12-25] MEDS: HYDRALAZINE HCL 100MG TABLET PO SCH ×2 (05:49→13:58)
[2018-12-25] MEDS: PIPERACILLIN/TAZ 2.25G PREMIX 50 ML IV SCH ×2 (05:49→13:18)
[2018-12-25] MEDS: BLOOD SUGAR DIAGNOSTIC STRIP TEST SCH ×3 (07:40→17:40)
[2018-12-25] MEDS: INSULIN LISPRO 100 UNITS/ML SUBCUT SCH ×3 (08:10→17:57)
[2018-12-25] MEDS: PHENYTOIN SODIUM EXTENDED 100MG CAPSULE PO SCH ×3 (08:54→17:01)
[2018-12-25] MEDS: CALCIUM ACETATE 667MG CAPSULE PO SCH ×3 (08:55→18:01)
[2018-12-25] MEDS: LEVOTHYROXINE SODIUM 25MCG TABLET PO SCH (08:55)
[2018-12-25] MEDS: FOLIC ACID/VITAMIN B COMP W-C TABLET PO SCH (08:55)
[2018-12-25 08:57] LABS: BASOPHILS % 1.3 % (0.0-2.0); EOSINOPHILS % 9.8 % (0.0-5.0); HEMATOCRIT. 21.2 % (36.0-48.0); HEMOGLOBIN. 7.2 g/dL (12.0-16.0); LYMPHOCYTES % 16.7 % (20.0-50.0); MEAN CORPUSCULAR HEMOGLOBIN 32.7 pg (28.0-32.0); MEAN CORPUSCULAR VOLUME 96.7 fL (81.0-99.0); MEAN PLATELET VOLUME 7.8 fl (7.4-10.4); MONOCYTES % 13.6 % (2.0-8.0); NEUTROPHILS % 58.6 % (40.0-76.0); PLATELET 171 x1000/uL (130-400); RED BLOOD CELL COUNT 2.19 mill/uL (4.2-5.4); RED CELL DISTRIBUTION WIDTH 18.9 % (11.6-14.6)
[2018-12-25] MEDS: ALPRAZOLAM 0.5 MG TABLET PO SCH (09:00)
[2018-12-25] MEDS: AMLODIPINE 10MG TABLET PO SCH (09:00)
[2018-12-25] MEDS: CARVEDILOL 12.5MG TABLET PO SCH (09:00)
[2018-12-25] MEDS ORDERED: HYDR100T26 PO (15:45)
[2018-12-25] MEDS ORDERED: NEPVIT PO (15:45)
[2018-12-25] MEDS ORDERED: ATOR20TA PO (15:45)
[2018-12-25] MEDS ORDERED: AMLO10TA80 PO (15:45)
[2018-12-25] MEDS ORDERED: CALC667C PO (15:45)
[2018-12-25] MEDS ORDERED: VANCOMYCIN 1 G PREMIX 200 ML IV SCH (18:00)
== END 2018-12-25 21:25 | disposition home or self-care (01) | DRG 291 ==
LOC: ER 16:51 → 7WST 18:49 → ENRESERV 21:34 → CANBEDREQ 12-23 02:50
PROVIDERS: ADMIT Internal Medicine; ATTEND Internal Medicine
PROC: 30233N1 Transfusion of Nonautologous Red Blood Cells into Peripheral Vein, Percutaneous Approach (ICD-10-PCS; principal; 2018-12-23)
PROC: 5A1D70Z Performance of Urinary Filtration, Intermittent, Less than 6 Hours Per Day (ICD-10-PCS; 2018-12-23)
PROC: 5A1D70Z Performance of Urinary Filtration, Intermittent, Less than 6 Hours Per Day (ICD-10-PCS; 2018-12-24)
DX: I13.2 Hypertensive heart and chronic kidney disease with heart failure and with stage 5 chronic kidney disease, or end stage renal disease (principal); N18.6 End stage renal disease; S82.091A Other fracture of right patella, initial encounter for closed fracture; R18.8 Other ascites; E87.5 Hyperkalemia; D63.1 Anemia in chronic kidney disease; E03.9 Hypothyroidism, unspecified; E78.5 Hyperlipidemia, unspecified; I50.9 Heart failure, unspecified; G40.909 Epilepsy, unspecified, not intractable, without status epilepticus; K70.40 Alcoholic hepatic failure without coma; K74.60 Unspecified cirrhosis of liver; X58.XXXA Exposure to other specified factors, initial encounter; Z99.2 Dependence on renal dialysis; D72.1 Eosinophilia; E05.90 Thyrotoxicosis, unspecified without thyrotoxic crisis or storm; F10.10 Alcohol abuse, uncomplicated; F41.9 Anxiety disorder, unspecified; Z91.19 Patient's noncompliance with other medical treatment and regimen; Z91.81 History of falling; Z91.018 Allergy to other foods; Z91.010 Allergy to peanuts; Z98.891 History of uterine scar from previous surgery; Z91.15 Patient's noncompliance with renal dialysis; Y93.89 Activity, other specified; Y92.89 Other specified places as the place of occurrence of the external cause; Y99.8 Other external cause status
CPT/HCPCS: 36415; 71045; 73560; 73564; 76700; 80048; 80061; 80076; 80202; 82550; 82553; 82962; 83735; 84100; 84443; 84484; 86850; 86900; 86920; 93005; 93970; 94640; 96374; 96375; 97162; 97165; 99285; J0360; J0885; J1170; J1200; J1644; J2270; J2543; J3370; J7050; J7060; J7620; P9016

== ENCOUNTER 2019-01-01 17:18 | Inpatient (IN) | payer MEDICARE, MEDICAID ==
[~2019-01-01] VITALS: Ht 170.2 cm; Wt 56.7 kg
[~2019-01-01 17:18] MED LIST changes: +AMLO10TA80 PO; +CALC667C PO; +HYDR100T26 PO; +NEPVIT PO
[2019-01-01] MEDS ORDERED: ONDANSETRON HCL 4MG/2ML INJ IV STA (17:53)
[2019-01-01] MEDS ORDERED: MORPHINE SULFATE 4 MG/ML CPJ (NOT FOR IM USE) IV STA (17:53)
[2019-01-01] MEDS ORDERED: DIPHENHYDRAMINE 50MG/ML VIAL IV ONE (18:00)
[2019-01-01 18:19] LABS: BASOPHILS % 1.8 % (0.0-2.0); EOSINOPHILS % 6.7 % (0.0-5.0); HEMATOCRIT. 25.6 % (36.0-48.0); HEMOGLOBIN. 8.4 g/dL (12.0-16.0); MEAN CORPUSCULAR HEMOGLOBIN 32.5 pg (28.0-32.0); MEAN CORPUSCULAR VOLUME 98.7 fL (81.0-99.0); MONOCYTES % 13.3 % (2.0-8.0); NEUTROPHILS % 47.2 % (40.0-76.0); PLATELET 206 x1000/uL (130-400); RED CELL DISTRIBUTION WIDTH 19.5 % (11.6-14.6)
[2019-01-01 18:23] LABS: CHLORIDE 99 mEq/L (98-107)
[2019-01-01 18:25] LABS: INR 1.1; PARTIAL THROMBOPLASTIN TIME 23.2 sec (23.4-31.0); PROTHROMBIN TIME 11.8 sec (9.6-11.0)
[2019-01-01 18:30] LABS: PHOSPHORUS 4.5 mg/dL (2.5-4.9)
[2019-01-01] MEDS ORDERED: DEXTROSE 50% WATER 50ML SYRINGE IV ONE (18:45)
[2019-01-01] MEDS ORDERED: SODIUM BICARBONATE 8.4% 1 MEQ/ML 50ML SYR IV ONE (18:45)
[2019-01-01] MEDS ORDERED: HYDRALAZINE 20MG/ML VIAL IV ONE (19:15)
[2019-01-02] VITALS (9 sets, daily range): BP systolic 151–180; BP diastolic 88–112
[2019-01-02] MEDS ORDERED: ONDANSETRON HCL 4MG/2ML INJ IV PRN (00:15)
[2019-01-02] MEDS ORDERED: ZOLPIDEM TARTRATE 5MG TABLET PO PRN (00:15)
[2019-01-02] MEDS ORDERED: ACETAMINOPHEN 325MG TABLET PO PRN (00:15)
[2019-01-02] MEDS ORDERED: CARVEDILOL 12.5MG TABLET PO SCH (01:00)
[2019-01-02] MEDS: PHENYTOIN SODIUM EXTENDED 100MG CAPSULE PO SCH ×4 (01:24→16:55)
[2019-01-02] MEDS: AMLODIPINE 10MG TABLET PO SCH ×2 (01:24→08:33)
[2019-01-02] MEDS: DIPHENHYDRAMINE 50MG/ML VIAL IV PRN ×6 (01:28→21:56)
[2019-01-02] MEDS: MORPHINE SULFATE 2 MG/ML CPJ (NOT FOR IM USE) IV PRN ×5 (02:39→20:23)
[2019-01-02] MEDS: ALPRAZOLAM 0.5 MG TABLET PO PRN ×3 (03:54→21:21)
[2019-01-02] MEDS: HYDRALAZINE HCL 100MG TABLET PO SCH ×3 (05:27→21:56)
[2019-01-02] MEDS: OMEPRAZOLE 20MG CAPSULE EXTENDED RELEASE PO SCH (08:33)
[2019-01-02] MEDS: LOSARTAN POTASSIUM 100 MG TABLET PO SCH (08:33)
[2019-01-02] MEDS: FOLIC ACID/VITAMIN B COMP W-C TABLET PO SCH (08:33)
[2019-01-02] MEDS: CALCIUM ACETATE 667MG CAPSULE PO SCH ×3 (08:33→16:55)
[2019-01-02] MEDS: LEVOTHYROXINE SODIUM 25MCG TABLET PO SCH (08:34)
[2019-01-02] MEDS: CLONIDINE 0.1MG TABLET PO PRN (17:04)
[2019-01-02] MEDS: METOPROLOL TARTRATE 50MG TABLET PO SCH (20:23)
[2019-01-03] VITALS: BP 161/109
[2019-01-03] MEDS: CLONIDINE 0.1MG TABLET PO PRN (01:45)
[2019-01-03] MEDS: MORPHINE SULFATE 2 MG/ML CPJ (NOT FOR IM USE) IV PRN ×2 (01:45→06:15)
[2019-01-03] MEDS: DIPHENHYDRAMINE 50MG/ML VIAL IV PRN ×3 (03:55→11:50)
[2019-01-03 04:00] VITALS: BP 146/99
[2019-01-03] MEDS: HYDRALAZINE HCL 100MG TABLET PO SCH ×2 (06:32→15:06)
[2019-01-03] MEDS: ALPRAZOLAM 0.5 MG TABLET PO PRN ×2 (06:33→14:06)
[2019-01-03] MEDS: LEVOTHYROXINE SODIUM 25MCG TABLET PO SCH (07:14)
[2019-01-03] MEDS: OMEPRAZOLE 20MG CAPSULE EXTENDED RELEASE PO SCH (07:14)
[2019-01-03 08:00] VITALS: BP 172/106
[2019-01-03 08:36] LABS: BASOPHILS % 1.3 % (0.0-2.0); EOSINOPHILS % 7.7 % (0.0-5.0); HEMATOCRIT. 25.6 % (36.0-48.0); HEMOGLOBIN. 8.7 g/dL (12.0-16.0); LYMPHOCYTES % 22.9 % (20.0-50.0); MEAN CORPUSCULAR HEMOGLOBIN 32.9 pg (28.0-32.0); MEAN CORPUSCULAR VOLUME 97.2 fL (81.0-99.0); MEAN PLATELET VOLUME 7.1 fl (7.4-10.4); MONOCYTES % 14.9 % (2.0-8.0); NEUTROPHILS % 53.2 % (40.0-76.0); PLATELET 147 x1000/uL (130-400); RED BLOOD CELL COUNT 2.64 mill/uL (4.2-5.4); RED CELL DISTRIBUTION WIDTH 18.9 % (11.6-14.6)
[2019-01-03] MEDS: CALCIUM ACETATE 667MG CAPSULE PO SCH ×2 (08:39→13:39)
[2019-01-03] MEDS: PHENYTOIN SODIUM EXTENDED 100MG CAPSULE PO SCH ×2 (08:39→13:39)
[2019-01-03] MEDS: LOSARTAN POTASSIUM 100 MG TABLET PO SCH (08:39)
[2019-01-03] MEDS: FOLIC ACID/VITAMIN B COMP W-C TABLET PO SCH (08:39)
[2019-01-03] MEDS: METOPROLOL TARTRATE 50MG TABLET PO SCH (08:41)
[2019-01-03] MEDS: AMLODIPINE 10MG TABLET PO SCH (08:42)
[2019-01-03] MEDS: HYDROMORPHONE HCL/PF 2MG/ML CPJ IV PRN ×2 (10:23→16:05)
[2019-01-03] MEDS ORDERED: HEPARIN SODIUM 1,000 UNIT/1ML VIAL IV SCH (12:15)
[2019-01-03 16:05] VITALS: BP 146/94
[2019-01-03] MEDS ORDERED: METOPROLOL TARTRATE 100MG TABLET PO SCH (21:00)
== END 2019-01-03 18:05 | disposition home or self-care (01) | DRG 640 ==
LOC: ER 17:18 → EDBEDREQ 18:02 → 6WST 19:05 → EDBEDREQTM 19:28 → EDBEDREQ 19:28 → ENRESERV 22:04
PROVIDERS: ADMIT Internal Medicine; ATTEND Internal Medicine
PROC: 5A1D70Z Performance of Urinary Filtration, Intermittent, Less than 6 Hours Per Day (ICD-10-PCS; principal; 2019-01-03)
DX: E87.5 Hyperkalemia (principal); N18.6 End stage renal disease; I13.2 Hypertensive heart and chronic kidney disease with heart failure and with stage 5 chronic kidney disease, or end stage renal disease; R18.8 Other ascites; I50.9 Heart failure, unspecified; E87.2 Acidosis; I16.0 Hypertensive urgency; E78.5 Hyperlipidemia, unspecified; G89.29 Other chronic pain; D63.8 Anemia in other chronic diseases classified elsewhere; E03.9 Hypothyroidism, unspecified; L29.9 Pruritus, unspecified; F41.9 Anxiety disorder, unspecified; F10.10 Alcohol abuse, uncomplicated; Y90.5 Blood alcohol level of 100-119 mg/100 ml; Z91.15 Patient's noncompliance with renal dialysis; Z99.2 Dependence on renal dialysis; Z91.19 Patient's noncompliance with other medical treatment and regimen; Z86.79 Personal history of other diseases of the circulatory system; Z91.018 Allergy to other foods; Z91.010 Allergy to peanuts; Z71.41 Alcohol abuse counseling and surveillance of alcoholic
CPT/HCPCS: 36415; 71045; 80048; 80320; 82962; 83735; 84100; 84484; 86850; 86900; 93005; 96374; 96375; 99291; J0360; J1170; J1200; J1644; J2270; J2405; J3490; G0480

== ENCOUNTER 2019-01-14 20:17 | Inpatient (IN) | payer MEDICARE, MEDICAID ==
[~2019-01-14] VITALS: Ht 170.2 cm; Wt 54.4 kg
[2019-01-14 21:49] LABS: MEAN CORPUSCULAR HEMOGLOBIN 32.7 pg (28.0-32.0); MEAN CORPUSCULAR VOLUME 95.1 fL (81.0-99.0); MEAN PLATELET VOLUME 7.5 fl (7.4-10.4); PLATELET 181 x1000/uL (130-400); RED BLOOD CELL COUNT 2.19 mill/uL (4.2-5.4); RED CELL DISTRIBUTION WIDTH 18.3 % (11.6-14.6)
[2019-01-14 21:54] LABS: CHLORIDE 100 mEq/L (98-107)
[2019-01-14 22:08] LABS: HEMATOCRIT. 20.8 % (36.0-48.0)
[2019-01-14 22:09] LABS: HEMOGLOBIN. 7.1 g/dL (12.0-16.0)
[2019-01-14 22:27] LABS: PLATELET ESTIMATE NORMAL
[2019-01-15] MEDS ORDERED: MORPHINE SULFATE 4 MG/ML CPJ (NOT FOR IM USE) IV ONE
[2019-01-15] MEDS ORDERED: DIPHENHYDRAMINE 50MG/ML VIAL IV ONE
[2019-01-15] MEDS: CLONIDINE 0.1MG TABLET PO SCH ×2 (03:01→03:02)
[2019-01-15] MEDS ORDERED: HYDRALAZINE 20MG/ML VIAL IV NR (05:00)
[2019-01-15 05:29] LABS: MEAN CORPUSCULAR VOLUME 95.6 fL (81.0-99.0); MEAN PLATELET VOLUME 7.8 fl (7.4-10.4); PLATELET 148 x1000/uL (130-400); RED BLOOD CELL COUNT 2.12 mill/uL (4.2-5.4); RED CELL DISTRIBUTION WIDTH 18.2 % (11.6-14.6)
[2019-01-15 05:38] LABS: HEMATOCRIT. 20.3 % (36.0-48.0)
[2019-01-15 06:12] LABS: PLATELET ESTIMATE NORMAL
[2019-01-15 07:45] VITALS: BP 153/104
[2019-01-15] MEDS ORDERED: ACETAMINOPHEN 325MG TABLET PO PRN (08:15)
[2019-01-15] MEDS ORDERED: ONDANSETRON HCL 4MG/2ML INJ IV PRN (08:15)
[2019-01-15] MEDS ORDERED: MEDICATION NOT ON FORMULARY EA (Alprazolam (Xanax) 1 MG) PO PRN (08:45)
[2019-01-15] MEDS ORDERED: AMLODIPINE 10MG TABLET PO SCH (09:00)
[2019-01-15] MEDS ORDERED: CARVEDILOL 12.5MG TABLET PO SCH (09:00)
[2019-01-15] MEDS ORDERED: LEVOTHYROXINE SODIUM 50 MCG PO SCH (09:00)
[2019-01-15] MEDS: FOLIC ACID/VITAMIN B COMP W-C TABLET PO SCH (09:50)
[2019-01-15] MEDS: PHENYTOIN SODIUM EXTENDED 100MG CAPSULE PO SCH ×3 (09:51→18:08)
[2019-01-15] MEDS: LEVOTHYROXINE SODIUM 50MCG TABLET PO SCH (09:51)
[2019-01-15] MEDS: LOSARTAN POTASSIUM 100 MG TABLET PO SCH (09:51)
[2019-01-15] MEDS: AMLODIPINE 5MG TABLET PO SCH ×2 (09:53→20:59)
[2019-01-15] MEDS: CLONIDINE 0.1MG TABLET PO PRN ×3 (11:55→20:58)
[2019-01-15 12:00] VITALS: BP 179/122
[2019-01-15] MEDS ORDERED: DIPHENHYDRAMINE 50MG/ML VIAL IV SCH (12:00)
[2019-01-15] MEDS ORDERED: DEXTROSE 50% WATER 50ML SYRINGE IV SCH (12:00)
[2019-01-15] MEDS ORDERED: INSULIN REGULAR (HUMULIN R) UD 100 UNITS/ML SYR IV SCH (12:00)
[2019-01-15] MEDS ORDERED: MORPHINE SULFATE 2 MG/ML CPJ (NOT FOR IM USE) IV SCH (12:00)
[2019-01-15] MEDS ORDERED: CALCIUM CHLORIDE 1,000 MG in DEXT 5% WATER 90 ML IV SCH (12:00)
[2019-01-15] MEDS ORDERED: MEDICATION NOT ON FORMULARY EA (Calcium Acetate 667 MG) PO SCH (12:50)
[2019-01-15] MEDS: CALCIUM ACETATE 667MG CAPSULE PO SCH ×2 (13:05→18:07)
[2019-01-15] MEDS ORDERED: HYDROCODONE/ACETAMINOPHEN 5/325MG TABLET PO PRN (13:30)
[2019-01-15] MEDS ORDERED: MEDICATION NOT ON FORMULARY EA (Hydralazine Hcl 100 MG) PO SCH (14:00)
[2019-01-15] MEDS: HYDRALAZINE HCL 100MG TABLET PO SCH ×2 (14:28→22:20)
[2019-01-15] MEDS ORDERED: DIPHENHYDRAMINE 25MG CAPSULE PO PRN (14:45)
[2019-01-15 16:00] VITALS: BP 180/111
[2019-01-15 20:00] VITALS: BP 204/132
[2019-01-15] MEDS: ALPRAZOLAM 0.5 MG TABLET PO PRN (20:58)
[2019-01-15] MEDS: CARVEDILOL 12.5MG TABLET PO SCH (20:59)
[2019-01-15 22:30] VITALS: BP 187/123
[2019-01-16] VITALS: BP 164/107
[2019-01-16] MEDS: CLONIDINE 0.1MG TABLET PO PRN ×2 (01:25→05:34)
[2019-01-16 04:00] VITALS: BP 177/119
[2019-01-16] MEDS: HYDRALAZINE HCL 100MG TABLET PO SCH ×2 (05:33→14:00)
[2019-01-16] MEDS: ALPRAZOLAM 0.5 MG TABLET PO PRN (06:04)
[2019-01-16] MEDS: LEVOTHYROXINE SODIUM 50MCG TABLET PO SCH (06:30)
[2019-01-16 07:35] LABS: BASOPHILS % 2.1 % (0.0-2.0); EOSINOPHILS % 6.1 % (0.0-5.0); HEMATOCRIT. 27.2 % (36.0-48.0); HEMOGLOBIN. 9.7 g/dL (12.0-16.0); LYMPHOCYTES % 24.4 % (20.0-50.0); MEAN CORPUSCULAR HEMOGLOBIN 33.1 pg (28.0-32.0); MEAN CORPUSCULAR VOLUME 92.8 fL (81.0-99.0); MEAN PLATELET VOLUME 8.1 fl (7.4-10.4); MONOCYTES % 11.7 % (2.0-8.0); NEUTROPHILS % 55.7 % (40.0-76.0); PLATELET 152 x1000/uL (130-400); RED BLOOD CELL COUNT 2.93 mill/uL (4.2-5.4); RED CELL DISTRIBUTION WIDTH 16.8 % (11.6-14.6)
[2019-01-16 08:00] VITALS: BP 163/106
[2019-01-16] MEDS: CALCIUM ACETATE 667MG CAPSULE PO SCH ×2 (08:37→12:18)
[2019-01-16] MEDS: AMLODIPINE 5MG TABLET PO SCH (08:37)
[2019-01-16] MEDS: CARVEDILOL 12.5MG TABLET PO SCH (08:38)
[2019-01-16] MEDS: PHENYTOIN SODIUM EXTENDED 100MG CAPSULE PO SCH ×2 (08:38→13:00)
[2019-01-16] MEDS: LOSARTAN POTASSIUM 100 MG TABLET PO SCH (08:38)
[2019-01-16] MEDS: FOLIC ACID/VITAMIN B COMP W-C TABLET PO SCH (08:38)
[2019-01-16] MEDS ORDERED: PHENYTOIN SODIUM EXTENDED 100MG CAPSULE PO SCH (11:00)
[2019-01-16 12:00] VITALS: BP 173/113
[2019-01-16 13:11] VITALS: BP 140/88
[2019-01-16] MEDS ORDERED: CLONIDINE 0.1MG TABLET PO SCH (14:00)
== END 2019-01-16 14:03 | disposition home or self-care (01) | DRG 291 ==
LOC: ER 20:17 → 6EST 23:44 → EDBEDREQ 23:49 → EDBEDREQTM 23:49 → ENRESERV 23:56
PROVIDERS: ADMIT Internal Medicine; ATTEND Internal Medicine
PROC: 5A1D70Z Performance of Urinary Filtration, Intermittent, Less than 6 Hours Per Day (ICD-10-PCS; principal; 2019-01-15)
PROC: 30233N1 Transfusion of Nonautologous Red Blood Cells into Peripheral Vein, Percutaneous Approach (ICD-10-PCS; 2019-01-15)
DX: I13.2 Hypertensive heart and chronic kidney disease with heart failure and with stage 5 chronic kidney disease, or end stage renal disease (principal); N18.6 End stage renal disease; E44.1 Mild protein-calorie malnutrition; Z68.1 Body mass index [BMI] 19.9 or less, adult; D63.1 Anemia in chronic kidney disease; D72.819 Decreased white blood cell count, unspecified; E03.9 Hypothyroidism, unspecified; E78.5 Hyperlipidemia, unspecified; E87.5 Hyperkalemia; F10.10 Alcohol abuse, uncomplicated; F41.9 Anxiety disorder, unspecified; G40.909 Epilepsy, unspecified, not intractable, without status epilepticus; I50.9 Heart failure, unspecified; Z76.5 Malingerer [conscious simulation]; Z91.19 Patient's noncompliance with other medical treatment and regimen; Z99.2 Dependence on renal dialysis; Z91.018 Allergy to other foods
CPT/HCPCS: 36415; 71045; 80048; 80185; 82962; 84132; 86850; 86900; 86920; 93005; 96374; 96375; 99285; J0360; J1200; J1815; J2270; J3490; J7060; P9016; P9021; Q0163

== ENCOUNTER 2019-02-04 15:28 | Emergency (ER) | payer MEDICARE, MEDICAID ==
[~2019-02-04] VITALS: Ht 162.6 cm; Wt 59.0 kg
[2019-02-04] MEDS ORDERED: MORPHINE SULFATE 2 MG/ML CPJ (NOT FOR IM USE) IV ONE (18:00)
[2019-02-04] MEDS ORDERED: DIPHENHYDRAMINE 50MG/ML VIAL IV ONE (18:00)
[2019-02-04 18:19] LABS: BASOPHILS % 1.4 % (0.0-2.0); EOSINOPHILS % 7.3 % (0.0-5.0); HEMATOCRIT. 24.4 % (36.0-48.0); HEMOGLOBIN. 8.3 g/dL (12.0-16.0); MEAN CORPUSCULAR HEMOGLOBIN 32.6 pg (28.0-32.0); MEAN CORPUSCULAR VOLUME 95.6 fL (81.0-99.0); MEAN PLATELET VOLUME 7.9 fl (7.4-10.4); MONOCYTES % 10.3 % (2.0-8.0); PLATELET 137 x1000/uL (130-400); RED BLOOD CELL COUNT 2.55 mill/uL (4.2-5.4); RED CELL DISTRIBUTION WIDTH 17.9 % (11.6-14.6)
[2019-02-04 18:24] LABS: CHLORIDE 103 mEq/L (98-107)
[2019-02-04] MEDS ORDERED: CARVEDILOL 12.5MG TABLET PO ONE (19:45)
[2019-02-04] MEDS ORDERED: AMLODIPINE 10MG TABLET PO ONE (19:45)
[2019-02-04 21:16] VITALS: BP 161/102
== END 2019-02-04 21:44 | disposition home or self-care (01) ==
LOC: ER 15:28
DX: D64.9 Anemia, unspecified (principal); R94.5 Abnormal results of liver function studies; I12.0 Hypertensive chronic kidney disease with stage 5 chronic kidney disease or end stage renal disease; N18.6 End stage renal disease; Z99.2 Dependence on renal dialysis; Z79.899 Other long term (current) drug therapy; Z91.018 Allergy to other foods
CPT/HCPCS: 36415; 80053; 83735; 85025; 86850; 86900; 86901; 96374; 96375; 99283; J1200; J2270

== ENCOUNTER 2019-02-19 15:59 | Inpatient (IN) | payer MEDICARE, MEDICAID ==
[~2019-02-19] VITALS: Ht 167.6 cm; Wt 59.6 kg
[~2019-02-19 15:59] MED LIST changes: -ALPR1TAB2 PO; +ALPR2TAB2 MT; +AMLO2.5T2 MT
[2019-02-19 16:54] LABS: BASOPHILS % 2.4 % (0.0-2.0); EOSINOPHILS % 10.6 % (0.0-5.0); HEMATOCRIT. 21.8 % (36.0-48.0); HEMOGLOBIN. 7.4 g/dL (12.0-16.0); LYMPHOCYTES % 33.4 % (20.0-50.0); MEAN CORPUSCULAR HEMOGLOBIN 32.9 pg (28.0-32.0); MEAN CORPUSCULAR VOLUME 96.5 fL (81.0-99.0); MEAN PLATELET VOLUME 7.9 fl (7.4-10.4); MONOCYTES % 12.4 % (2.0-8.0); NEUTROPHILS % 41.2 % (40.0-76.0); PLATELET 244 x1000/uL (130-400); RED BLOOD CELL COUNT 2.26 mill/uL (4.2-5.4); RED CELL DISTRIBUTION WIDTH 17.3 % (11.6-14.6)
[2019-02-19 17:02] LABS: CHLORIDE 101 mEq/L (98-107)
[2019-02-19] MEDS ORDERED: ALBUTEROL (0.083%) 2.5MG/3ML NEB HHN ONE (17:30)
[2019-02-19] MEDS ORDERED: DEXTROSE 50% WATER 50ML SYRINGE IV ONE ×2 (17:30→18:14)
[2019-02-19] MEDS ORDERED: INSULIN REGULAR (HUMULIN R) 300UNITS/3ML IV ONE (17:30)
[2019-02-19] MEDS ORDERED: SODIUM BICARBONATE 8.4% 1 MEQ/ML 50ML SYR IV ONE (17:30)
[2019-02-19 18:32] LABS: INR 1.2; PROTHROMBIN TIME 12.2 sec (9.6-11.0)
[2019-02-19] MEDS ORDERED: HYDROCODONE/ACETAMINOPHEN 5/325MG TABLET PO ONE (18:45)
[2019-02-19] MEDS ORDERED: DEXTROSE 50% WATER 50ML SYRINGE IV PRN (20:00)
[2019-02-19] MEDS ORDERED: GUAIFENESIN 200MG/10ML SUGAR FREE UDC PO PRN (20:00)
[2019-02-19] MEDS ORDERED: HYDRALAZINE 20MG/ML VIAL IV PRN (20:00)
[2019-02-19] MEDS ORDERED: DIPHENHYDRAMINE 50MG/ML VIAL IV PRN (20:00)
[2019-02-19] MEDS ORDERED: ONDANSETRON HCL 4MG/2ML INJ IV PRN (20:00)
[2019-02-19] MEDS ORDERED: ACETAMINOPHEN 325MG TABLET PO PRN (20:00)
[2019-02-19] MEDS ORDERED: MAGNESIUM/ALUMINUM HYDROXIDE/SIMETHICONE 30ML UDC PO PRN (20:00)
[2019-02-19] MEDS ORDERED: HYDROCODONE/ACETAMINOPHEN 10/325MG TABLET PO PRN (20:00)
[2019-02-19] MEDS ORDERED: CLONIDINE 0.1MG TABLET PO PRN (20:00)
[2019-02-19] MEDS ORDERED: DOCUSATE SODIUM 100MG CAPSULE PO PRN (20:00)
[2019-02-19] MEDS ORDERED: IPRATROPIUM/ALBUTEROL 0.5-3(2.5)MG/3ML NEB HHN PRN (20:00)
[2019-02-19] MEDS ORDERED: ENOXAPARIN 40MG/0.4ML SYR SUBCUT SCH (20:00)
[2019-02-19] MEDS ORDERED: DEXTROSE 50% WATER 50ML SYRINGE IV NR (20:15)
[2019-02-19] MEDS: INSULIN LISPRO 100 UNITS/ML SUBCUT SCH (21:00)
[2019-02-19 22:00] VITALS: BP 128/90
[2019-02-19] MEDS: MORPHINE SULFATE 2 MG/ML CPJ (NOT FOR IM USE) IV PRN (23:24)
[2019-02-19] MEDS: DIPHENHYDRAMINE 50MG/ML VIAL IV PRN (23:48)
[2019-02-19 23:53] LABS: CREATINE KINASE 80 IU/L (26-192)
[2019-02-19 23:54] LABS: CREATINE KINASE MB FRACTION < 1.0 ng/mL (0.5-3.6)
[2019-02-20] VITALS (8 sets, daily range): BP systolic 119–156; BP diastolic 38–98
[2019-02-20] MEDS: LORAZEPAM 2MG/ML CPJ IV PRN ×2 (02:42→21:12)
[2019-02-20] MEDS: DIPHENHYDRAMINE 50MG/ML VIAL IV PRN ×4 (04:13→21:11)
[2019-02-20] MEDS: SODIUM CHLORIDE 0.9% INJ 3ML FLUSH IVF SCH ×3 (05:48→21:10)
[2019-02-20] MEDS: MORPHINE SULFATE 2 MG/ML CPJ (NOT FOR IM USE) IV PRN ×3 (06:33→17:55)
[2019-02-20 06:34] LABS: HEMATOCRIT. 21.9 % (36.0-48.0); HEMOGLOBIN. 7.6 g/dL (12.0-16.0); MEAN CORPUSCULAR VOLUME 95.3 fL (81.0-99.0); MEAN PLATELET VOLUME 7.8 fl (7.4-10.4); PLATELET 197 x1000/uL (130-400); RED CELL DISTRIBUTION WIDTH 17.5 % (11.6-14.6)
[2019-02-20 06:51] LABS: CHLORIDE 101 mEq/L (98-107)
[2019-02-20 07:04] LABS: LDL CHOLESTEROL 80 mg/dL (5-100)
[2019-02-20 07:05] LABS: CREATINE KINASE 84 IU/L (26-192); CREATINE KINASE MB FRACTION 1.2 ng/mL (0.5-3.6); HDL CHOLESTEROL 76 mg/dL (40-59)
[2019-02-20 07:08] LABS: T4 FREE 0.69 ng/dL (0.76-1.46)
[2019-02-20] MEDS: BLOOD SUGAR DIAGNOSTIC STRIP TEST SCH ×4 (07:30→21:10)
[2019-02-20] MEDS: INSULIN LISPRO 100 UNITS/ML SUBCUT SCH ×4 (08:00→21:00)
[2019-02-20] MEDS ORDERED: ASPIRIN 81MG EC TABLET PO SCH (09:00)
[2019-02-20] MEDS: CALCIUM ACETATE 667MG CAPSULE PO SCH ×3 (09:19→17:58)
[2019-02-20] MEDS: LEVOTHYROXINE SODIUM 50MCG TABLET PO SCH (09:19)
[2019-02-20] MEDS: FOLIC ACID/VITAMIN B COMP W-C TABLET PO SCH (09:19)
[2019-02-20] MEDS: AMLODIPINE 10MG TABLET PO SCH (09:20)
[2019-02-20 12:53] LABS: PLATELET ESTIMATE NORMAL
[2019-02-20 14:39] LABS: FOLIC ACID (FOLATE) SERUM 19.4 ng/mL (>5.38)
[2019-02-20] MEDS: PHENYTOIN SODIUM EXTENDED 100MG CAPSULE PO SCH (21:10)
[2019-02-21] MEDS: MORPHINE SULFATE 2 MG/ML CPJ (NOT FOR IM USE) IV PRN ×4 (00:17→19:07)
[2019-02-21] MEDS: DIPHENHYDRAMINE 50MG/ML VIAL IV PRN ×4 (02:12→20:56)
[2019-02-21] MEDS: LORAZEPAM 2MG/ML CPJ IV PRN ×4 (02:12→20:56)
[2019-02-21] MEDS: SODIUM CHLORIDE 0.9% INJ 3ML FLUSH IVF SCH ×3 (05:02→20:56)
[2019-02-21] MEDS: PHENYTOIN SODIUM EXTENDED 100MG CAPSULE PO SCH ×3 (05:19→20:56)
[2019-02-21 06:45] LABS: HEMATOCRIT. 21.6 % (36.0-48.0); HEMOGLOBIN. 7.3 g/dL (12.0-16.0); MEAN CORPUSCULAR HEMOGLOBIN 32.7 pg (28.0-32.0); MEAN CORPUSCULAR VOLUME 96.5 fL (81.0-99.0); MEAN PLATELET VOLUME 7.8 fl (7.4-10.4); PLATELET 178 x1000/uL (130-400); RED BLOOD CELL COUNT 2.23 mill/uL (4.2-5.4)
[2019-02-21 07:17] LABS: PHOSPHORUS 5.1 mg/dL (2.5-4.9)
[2019-02-21] MEDS: BLOOD SUGAR DIAGNOSTIC STRIP TEST SCH ×4 (07:30→20:29)
[2019-02-21 08:00] VITALS: BP 148/95
[2019-02-21] MEDS: INSULIN LISPRO 100 UNITS/ML SUBCUT SCH ×4 (08:00→20:29)
[2019-02-21] MEDS: AMLODIPINE 10MG TABLET PO SCH (08:44)
[2019-02-21] MEDS: CALCIUM ACETATE 667MG CAPSULE PO SCH ×3 (08:44→18:23)
[2019-02-21] MEDS: FOLIC ACID/VITAMIN B COMP W-C TABLET PO SCH (08:44)
[2019-02-21] MEDS: LEVOTHYROXINE SODIUM 50MCG TABLET PO SCH (08:44)
[2019-02-21 10:20] LABS: INR 1.1; PROTHROMBIN TIME 11.5 sec (9.6-11.0)
[2019-02-21 10:25] LABS: PLATELET ESTIMATE NORMAL
[2019-02-21] MEDS ORDERED: SODIUM BICARBONATE 4% (2.4MEQ) 5ML VIAL IV ONE (10:34)
[2019-02-21] MEDS ORDERED: LIDOCAINE HCL 1% 20ML VIAL (Pyxis) INJ ONE (10:34)
[2019-02-21 16:00] VITALS: BP 137/71
[2019-02-21 18:00] VITALS: BP 131/84
[2019-02-22] VITALS (7 sets, daily range): BP systolic 138–157; BP diastolic 81–101
[2019-02-22] MEDS: LORAZEPAM 2MG/ML CPJ IV PRN ×3 (01:04→11:36)
[2019-02-22] MEDS: DIPHENHYDRAMINE 50MG/ML VIAL IV PRN ×3 (01:04→11:35)
[2019-02-22] MEDS: MORPHINE SULFATE 2 MG/ML CPJ (NOT FOR IM USE) IV PRN ×2 (03:24→08:00)
[2019-02-22] MEDS: PHENYTOIN SODIUM EXTENDED 100MG CAPSULE PO SCH ×2 (05:55→14:12)
[2019-02-22] MEDS: SODIUM CHLORIDE 0.9% INJ 3ML FLUSH IVF SCH (05:55)
[2019-02-22 06:56] LABS: BASOPHILS % 0.8 % (0.0-2.0); EOSINOPHILS % 9.5 % (0.0-5.0); HEMATOCRIT. 21.6 % (36.0-48.0); HEMOGLOBIN. 7.3 g/dL (12.0-16.0); LYMPHOCYTES % 21.2 % (20.0-50.0); MEAN CORPUSCULAR HEMOGLOBIN 32.7 pg (28.0-32.0); MEAN CORPUSCULAR VOLUME 97.3 fL (81.0-99.0); MONOCYTES % 13.7 % (2.0-8.0); NEUTROPHILS % 54.8 % (40.0-76.0); PLATELET 154 x1000/uL (130-400); RED BLOOD CELL COUNT 2.22 mill/uL (4.2-5.4); RED CELL DISTRIBUTION WIDTH 17.3 % (11.6-14.6)
[2019-02-22] MEDS: BLOOD SUGAR DIAGNOSTIC STRIP TEST SCH ×2 (07:30→13:03)
[2019-02-22] MEDS: LEVOTHYROXINE SODIUM 50MCG TABLET PO SCH (07:38)
[2019-02-22] MEDS: INSULIN LISPRO 100 UNITS/ML SUBCUT SCH ×2 (08:00→13:00)
[2019-02-22] MEDS: CALCIUM ACETATE 667MG CAPSULE PO SCH ×2 (08:00→13:00)
[2019-02-22] MEDS: AMLODIPINE 10MG TABLET PO SCH (09:00)
[2019-02-22] MEDS: FOLIC ACID/VITAMIN B COMP W-C TABLET PO SCH ×2 (09:00→11:39)
[2019-02-22] MEDS ORDERED: EPOETIN ALFA 10000UNITS/ML VIAL SUBCUT SCH (21:00)
== END 2019-02-22 15:20 | disposition home or self-care (01) | DRG 640 ==
LOC: ER 15:59 → 5EST 18:02 → EDBEDREQSVC 18:21 → EDBEDREQ 18:21 → ENRESERV 21:02
PROVIDERS: ADMIT Internal Medicine; ATTEND Internal Medicine
PROC: 5A1D70Z Performance of Urinary Filtration, Intermittent, Less than 6 Hours Per Day (ICD-10-PCS; principal; 2019-02-19)
PROC: 0W9G3ZZ Drainage of Peritoneal Cavity, Percutaneous Approach (ICD-10-PCS; 2019-02-21)
PROC: 5A1D70Z Performance of Urinary Filtration, Intermittent, Less than 6 Hours Per Day (ICD-10-PCS; 2019-02-22)
DX: E87.5 Hyperkalemia (principal); N18.6 End stage renal disease; I13.2 Hypertensive heart and chronic kidney disease with heart failure and with stage 5 chronic kidney disease, or end stage renal disease; R18.8 Other ascites; E44.1 Mild protein-calorie malnutrition; E11.22 Type 2 diabetes mellitus with diabetic chronic kidney disease; E87.1 Hypo-osmolality and hyponatremia; E03.9 Hypothyroidism, unspecified; D72.825 Bandemia; G40.909 Epilepsy, unspecified, not intractable, without status epilepticus; E78.5 Hyperlipidemia, unspecified; D50.9 Iron deficiency anemia, unspecified; F41.1 Generalized anxiety disorder; I50.9 Heart failure, unspecified; J45.909 Unspecified asthma, uncomplicated; Z91.018 Allergy to other foods; K21.9 Gastro-esophageal reflux disease without esophagitis; F41.9 Anxiety disorder, unspecified; K76.9 Liver disease, unspecified; Z91.15 Patient's noncompliance with renal dialysis; Z98.891 History of uterine scar from previous surgery; Z99.2 Dependence on renal dialysis; Z68.21 Body mass index [BMI] 21.0-21.9, adult; Z79.84 Long term (current) use of oral hypoglycemic drugs
CPT/HCPCS: 36415; 49083; 71045; 76700; 80048; 80051; 80061; 80076; 82550; 82553; 82607; 82746; 82962; 83540; 83550; 84100; 84439; 84443; 84484; 86850; 86900; 93005; 93970; 94644; 96374; 99291; J0360; J1200; J1815; J2060; J2270; J2405; J3490; J7611

== ENCOUNTER 2019-02-26 14:27 | Inpatient (IN) | payer MEDICARE, MEDICAID ==
[~2019-02-26] VITALS: Ht 170.2 cm; Wt 61.0 kg
[2019-02-26] MEDS ORDERED: ONDANSETRON HCL 4MG/2ML INJ IV STA (14:48)
[2019-02-26] MEDS ORDERED: MORPHINE SULFATE 4 MG/ML CPJ (NOT FOR IM USE) IV STA (14:48)
[2019-02-26] MEDS ORDERED: DIPHENHYDRAMINE 50MG/ML VIAL IV ONE (15:00)
[2019-02-26 16:15] LABS: CHLORIDE 109 mEq/L (98-107)
[2019-02-26 16:17] LABS: MEAN CORPUSCULAR HEMOGLOBIN 33.2 pg (28.0-32.0); MEAN CORPUSCULAR VOLUME 97.1 fL (81.0-99.0); MEAN PLATELET VOLUME 7.7 fl (7.4-10.4); PLATELET 152 x1000/uL (130-400); RED BLOOD CELL COUNT 1.81 mill/uL (4.2-5.4)
[2019-02-26 16:30] LABS: HEMATOCRIT. 17.5 % (36.0-48.0)
[2019-02-26 18:03] LABS: PLATELET ESTIMATE NORMAL
[2019-02-26] MEDS ORDERED: CLONIDINE 0.2MG TABLET PO ONE (19:45)
[2019-02-26] MEDS ORDERED: LORAZEPAM 2MG/ML CPJ IV ONE (20:45)
[2019-02-27] VITALS (7 sets, daily range): BP systolic 140–169; BP diastolic 84–113
[2019-02-27] MEDS ORDERED: HYDRALAZINE 20MG/ML VIAL IV PRN ×2 (02:15→03:45)
[2019-02-27] MEDS ORDERED: GUAIFENESIN 200MG/10ML SUGAR FREE UDC PO PRN (02:15)
[2019-02-27] MEDS ORDERED: IPRATROPIUM/ALBUTEROL 0.5-3(2.5)MG/3ML NEB HHN PRN (02:15)
[2019-02-27] MEDS ORDERED: MAGNESIUM/ALUMINUM HYDROXIDE/SIMETHICONE 30ML UDC PO PRN (02:15)
[2019-02-27] MEDS ORDERED: ACETAMINOPHEN 325MG TABLET PO PRN (02:15)
[2019-02-27] MEDS ORDERED: ONDANSETRON HCL 4MG/2ML INJ IV PRN (02:15)
[2019-02-27] MEDS ORDERED: CLONIDINE 0.1MG TABLET PO PRN (02:15)
[2019-02-27] MEDS: DIPHENHYDRAMINE 50MG/ML VIAL IV PRN ×4 (03:53→22:20)
[2019-02-27] MEDS: SODIUM CHLORIDE 0.9% INJ 3ML FLUSH IVF SCH ×3 (06:00→22:22)
[2019-02-27] MEDS: LORAZEPAM 1MG TABLET PO PRN ×2 (06:54→17:53)
[2019-02-27] MEDS: HYDRALAZINE HCL 100MG TABLET PO SCH ×3 (10:00→22:20)
[2019-02-27] MEDS: PHENYTOIN SODIUM EXTENDED 100MG CAPSULE PO SCH ×3 (10:08→20:56)
[2019-02-27] MEDS: OMEPRAZOLE 20MG CAPSULE EXTENDED RELEASE PO SCH ×2 (10:08→20:57)
[2019-02-27] MEDS: CARVEDILOL 12.5MG TABLET PO SCH ×2 (10:09→20:57)
[2019-02-27] MEDS: FOLIC ACID/VITAMIN B COMP W-C TABLET PO SCH (10:15)
[2019-02-27] MEDS: LEVOTHYROXINE SODIUM 50MCG TABLET PO SCH (10:15)
[2019-02-27] MEDS ORDERED: MORPHINE SULFATE 2 MG/ML CPJ (NOT FOR IM USE) IV SCH (11:45)
[2019-02-27] MEDS ORDERED: DIPHENHYDRAMINE 50MG/ML VIAL IV SCH (11:45)
[2019-02-27] MEDS ORDERED: ZOLPIDEM TARTRATE 5MG TABLET PO PRN (16:30)
[2019-02-27 17:04] LABS: HEMATOCRIT 28.9 % (36.0-48.0); HEMOGLOBIN 9.9 g/dL (12.0-16.0)
[2019-02-28] VITALS: BP 150/97
[2019-02-28] MEDS: LORAZEPAM 1MG TABLET PO PRN ×2 (01:24→10:26)
[2019-02-28 04:00] VITALS: BP 148/94
[2019-02-28] MEDS: PHENYTOIN SODIUM EXTENDED 100MG CAPSULE PO SCH ×2 (05:39→13:06)
[2019-02-28] MEDS: SODIUM CHLORIDE 0.9% INJ 3ML FLUSH IVF SCH ×2 (05:39→13:06)
[2019-02-28] MEDS: HYDRALAZINE HCL 100MG TABLET PO SCH ×2 (05:39→13:06)
[2019-02-28 08:32] VITALS: BP 145/101
[2019-02-28] MEDS: OMEPRAZOLE 20MG CAPSULE EXTENDED RELEASE PO SCH (08:34)
[2019-02-28] MEDS: DIPHENHYDRAMINE 50MG/ML VIAL IV PRN ×2 (08:34→13:06)
[2019-02-28] MEDS: LEVOTHYROXINE SODIUM 50MCG TABLET PO SCH (08:35)
[2019-02-28] MEDS: CARVEDILOL 12.5MG TABLET PO SCH (08:35)
[2019-02-28] MEDS: FOLIC ACID/VITAMIN B COMP W-C TABLET PO SCH (08:35)
[2019-02-28 09:41] LABS: HEMATOCRIT. 28.3 % (36.0-48.0); HEMOGLOBIN. 9.5 g/dL (12.0-16.0); MEAN CORPUSCULAR HEMOGLOBIN 32.4 pg (28.0-32.0); MEAN CORPUSCULAR VOLUME 96.1 fL (81.0-99.0); MEAN PLATELET VOLUME 7.9 fl (7.4-10.4); PLATELET 180 x1000/uL (130-400); RED BLOOD CELL COUNT 2.94 mill/uL (4.2-5.4); RED CELL DISTRIBUTION WIDTH 16.4 % (11.6-14.6)
[2019-02-28 12:00] VITALS: BP 165/108
[2019-02-28 16:00] VITALS: BP 159/90
[2019-02-28 16:49] LABS: PLATELET ESTIMATE NORMAL
[2019-02-28 17:00] VITALS: BP 159/90
== END 2019-02-28 17:45 | disposition home or self-care (01) | DRG 811 ==
LOC: ER 14:45 → 8WST 17:02 → ENRESERV 02-27 07:37
PROVIDERS: ADMIT Internal Medicine; ATTEND Internal Medicine
PROC: 30233N1 Transfusion of Nonautologous Red Blood Cells into Peripheral Vein, Percutaneous Approach (ICD-10-PCS; principal; 2019-02-26)
PROC: 5A1D70Z Performance of Urinary Filtration, Intermittent, Less than 6 Hours Per Day (ICD-10-PCS; 2019-02-26)
PROC: 5A1D70Z Performance of Urinary Filtration, Intermittent, Less than 6 Hours Per Day (ICD-10-PCS; 2019-02-27)
PROC: 5A1D70Z Performance of Urinary Filtration, Intermittent, Less than 6 Hours Per Day (ICD-10-PCS; 2019-02-28)
DX: D64.9 Anemia, unspecified (principal); N18.6 End stage renal disease; E87.2 Acidosis; E46 Unspecified protein-calorie malnutrition; I13.2 Hypertensive heart and chronic kidney disease with heart failure and with stage 5 chronic kidney disease, or end stage renal disease; I50.22 Chronic systolic (congestive) heart failure; E11.22 Type 2 diabetes mellitus with diabetic chronic kidney disease; E03.9 Hypothyroidism, unspecified; D72.819 Decreased white blood cell count, unspecified; F41.1 Generalized anxiety disorder; G40.909 Epilepsy, unspecified, not intractable, without status epilepticus; G89.29 Other chronic pain; J45.909 Unspecified asthma, uncomplicated; E05.90 Thyrotoxicosis, unspecified without thyrotoxic crisis or storm; Z68.21 Body mass index [BMI] 21.0-21.9, adult; Z91.018 Allergy to other foods; Z91.19 Patient's noncompliance with other medical treatment and regimen; Z88.8 Allergy status to other drugs, medicaments and biological substances; Z79.899 Other long term (current) drug therapy; Z99.2 Dependence on renal dialysis
CPT/HCPCS: 36415; 71045; 80048; 82962; 83880; 84484; 85014; 85018; 86850; 86900; 86920; 93005; 99285; J0360; J1200; J2060; J2270; J2405; P9016

== ENCOUNTER 2019-03-18 20:06 | Inpatient (IN) | payer MEDICARE, MEDICAID ==
[~2019-03-18] VITALS: Ht 170.2 cm; Wt 59.0 kg
[2019-03-18] MEDS ORDERED: ONDANSETRON HCL 4MG/2ML INJ IV STA (22:27)
[2019-03-18] MEDS ORDERED: MORPHINE SULFATE 4 MG/ML CPJ (NOT FOR IM USE) IV STA (22:27)
[2019-03-18] MEDS ORDERED: DIPHENHYDRAMINE 25MG CAPSULE PO ONE (22:30)
[2019-03-18 23:14] LABS: MEAN CORPUSCULAR HEMOGLOBIN 31.9 pg (28.0-32.0); MEAN CORPUSCULAR VOLUME 94.7 fL (81.0-99.0); MEAN PLATELET VOLUME 7.4 fl (7.4-10.4); PLATELET 126 x1000/uL (130-400); RED CELL DISTRIBUTION WIDTH 15.8 % (11.6-14.6)
[2019-03-18 23:22] LABS: CHLORIDE 95 mEq/L (98-107); HEMOGLOBIN. 5.7 g/dL (12.0-16.0)
[2019-03-18 23:24] LABS: INR 1.1; PROTHROMBIN TIME 11.3 sec (9.6-11.0)
[2019-03-19] VITALS (8 sets, daily range): BP systolic 141–181; BP diastolic 86–116
[2019-03-19] MEDS ORDERED: LORAZEPAM 1MG TABLET PO ONE (01:15)
[2019-03-19] MEDS ORDERED: HYDRALAZINE 20MG/ML VIAL IV ONE (01:45)
[2019-03-19] MEDS ORDERED: MORPHINE SULFATE 2 MG/ML CPJ (NOT FOR IM USE) IV PRN (05:30)
[2019-03-19] MEDS ORDERED: ACETAMINOPHEN 325MG TABLET PO PRN (05:30)
[2019-03-19] MEDS ORDERED: ACETAMINOPHEN 325MG TABLET PO SCH (05:30)
[2019-03-19] MEDS: CLONIDINE 0.1MG TABLET PO PRN ×2 (05:43→16:42)
[2019-03-19 07:11] LABS: PLATELET ESTIMATE SLIGHTLY DECREASED
[2019-03-19] MEDS ORDERED: ONDANSETRON HCL 4MG/2ML INJ IV PRN (08:15)
[2019-03-19] MEDS ORDERED: DIPHENHYDRAMINE 25MG CAPSULE PO PRN (08:15)
[2019-03-19] MEDS ORDERED: HYDROCODONE/ACETAMINOPHEN 5/325MG TABLET PO PRN (08:15)
[2019-03-19] MEDS ORDERED: NIFEDIPINE XL 60MG TAB PO SCH (09:00)
[2019-03-19] MEDS: AZITHROMYCIN 500 MG TABLET PO SCH (10:29)
[2019-03-19] MEDS: ALPRAZOLAM 0.5 MG TABLET PO PRN ×2 (10:29→20:46)
[2019-03-19] MEDS: CEFTRIAXONE 1,000 MG in DEXTROSE 5% WATER 50 ML IV SCH (11:16)
[2019-03-19] MEDS: DIPHENHYDRAMINE 50MG/ML VIAL IV PRN ×2 (11:55→18:33)
[2019-03-19 14:07] LABS: MEAN CORPUSCULAR HEMOGLOBIN 31.8 pg (28.0-32.0); MEAN CORPUSCULAR VOLUME 92.9 fL (81.0-99.0); MEAN PLATELET VOLUME 8.1 fl (7.4-10.4); PLATELET 101 x1000/uL (130-400); RED BLOOD CELL COUNT 2.04 mill/uL (4.2-5.4); RED CELL DISTRIBUTION WIDTH 16.8 % (11.6-14.6)
[2019-03-19 14:12] LABS: HEMOGLOBIN. 6.5 g/dL (12.0-16.0)
[2019-03-19 14:14] LABS: HEMATOCRIT. 18.9 % (36.0-48.0); INR 1.3
[2019-03-19 14:30] LABS: PLATELET ESTIMATE SLIGHTLY DECREASED
[2019-03-19] MEDS: NIFEDIPINE XL 60MG TAB PO SCH ×2 (15:12→20:46)
[2019-03-19] MEDS: LOSARTAN POTASSIUM 100 MG TABLET PO SCH (15:13)
[2019-03-19] MEDS ORDERED: ZOLPIDEM TARTRATE 5MG TABLET PO PRN (17:00)
[2019-03-19] MEDS: CARVEDILOL 12.5MG TABLET PO SCH (17:27)
[2019-03-19] MEDS ORDERED: IPRATROPIUM/ALBUTEROL 0.5-3(2.5)MG/3ML NEB HHN PRN (20:30)
[2019-03-19] MEDS: CLONIDINE 0.1MG TABLET PO SCH (20:56)
[2019-03-19] MEDS: HYDROCODONE/ACETAMINOPHEN 10/325MG TABLET PO PRN (21:34)
[2019-03-20] VITALS: BP 152/73
[2019-03-20] MEDS: DIPHENHYDRAMINE 50MG/ML VIAL IV PRN ×2 (00:49→08:39)
[2019-03-20 00:59] LABS: HEMATOCRIT 25.7 % (36.0-48.0); HEMOGLOBIN 8.7 g/dL (12.0-16.0)
[2019-03-20 04:00] VITALS: BP 154/87
[2019-03-20] MEDS: HYDROCODONE/ACETAMINOPHEN 10/325MG TABLET PO PRN ×2 (04:09→10:44)
[2019-03-20] MEDS: ALPRAZOLAM 0.5 MG TABLET PO PRN (06:18)
[2019-03-20] MEDS: CLONIDINE 0.1MG TABLET PO SCH (06:20)
[2019-03-20 08:00] VITALS: BP 147/67
[2019-03-20 08:03] LABS: HEMATOCRIT. 23.8 % (36.0-48.0); HEMOGLOBIN. 8.1 g/dL (12.0-16.0); MEAN CORPUSCULAR HEMOGLOBIN 32.1 pg (28.0-32.0); MEAN CORPUSCULAR VOLUME 94.1 fL (81.0-99.0); MEAN PLATELET VOLUME 7.9 fl (7.4-10.4); PLATELET 117 x1000/uL (130-400); RED BLOOD CELL COUNT 2.53 mill/uL (4.2-5.4); RED CELL DISTRIBUTION WIDTH 16.2 % (11.6-14.6)
[2019-03-20] MEDS: AZITHROMYCIN 500 MG TABLET PO SCH (08:40)
[2019-03-20] MEDS: CARVEDILOL 12.5MG TABLET PO SCH (08:40)
[2019-03-20] MEDS: LOSARTAN POTASSIUM 100 MG TABLET PO SCH (08:40)
[2019-03-20] MEDS: CEFTRIAXONE 1,000 MG in DEXTROSE 5% WATER 50 ML IV SCH (08:41)
[2019-03-20] MEDS: NIFEDIPINE XL 60MG TAB PO SCH (08:41)
[2019-03-20] MEDS ORDERED: SODIUM BICARBONATE 4% (2.4MEQ) 5ML VIAL IV ONE (09:24)
[2019-03-20] MEDS ORDERED: LIDOCAINE HCL 1% 20ML VIAL (Pyxis) INJ ONE (09:25)
[2019-03-20 11:56] LABS: PLATELET ESTIMATE SLIGHTLY DECREASED
[2019-03-20 12:00] VITALS: BP 129/69
[2019-04-20] MEDS ORDERED: ALPR2TAB2 MT (12:32)
== END 2019-03-20 15:13 | disposition left against medical advice (07) ==
LOC: ER 20:06 → 6EST 03-19 00:26 → EDBEDREQ 03-19 00:30 → EDBEDREQDT 03-19 00:30 → EDBEDREQSVC 03-19 00:30 → EDBEDREQTM 03-19 00:30 → ENRESERV 03-19 02:10 → 6EST 03-19 06:05 → 7WST 03-19 09:29
PROVIDERS: ADMIT Internal Medicine; ATTEND Internal Medicine
PROC: 30233N1 Transfusion of Nonautologous Red Blood Cells into Peripheral Vein, Percutaneous Approach (ICD-10-PCS; principal; 2019-03-19)
PROC: 0W9G3ZZ Drainage of Peritoneal Cavity, Percutaneous Approach (ICD-10-PCS; 2019-03-20)
DX: K74.60 Unspecified cirrhosis of liver (principal); I13.2 Hypertensive heart and chronic kidney disease with heart failure and with stage 5 chronic kidney disease, or end stage renal disease; J18.9 Pneumonia, unspecified organism; N18.6 End stage renal disease; D69.6 Thrombocytopenia, unspecified; E87.1 Hypo-osmolality and hyponatremia; E44.1 Mild protein-calorie malnutrition; I50.22 Chronic systolic (congestive) heart failure; R18.8 Other ascites; D64.9 Anemia, unspecified; F41.1 Generalized anxiety disorder; E03.9 Hypothyroidism, unspecified; E87.6 Hypokalemia; F10.10 Alcohol abuse, uncomplicated; G40.909 Epilepsy, unspecified, not intractable, without status epilepticus; Z76.5 Malingerer [conscious simulation]; Z99.2 Dependence on renal dialysis; Z91.19 Patient's noncompliance with other medical treatment and regimen; Z68.20 Body mass index [BMI] 20.0-20.9, adult; Z79.899 Other long term (current) drug therapy; Z91.018 Allergy to other foods; Z91.010 Allergy to peanuts
CPT/HCPCS: 36415; 49083; 71045; 80048; 85014; 85018; 85384; 86850; 86900; 86920; 93005; 99285; J0360; J0696; J1200; J2270; J2405; J3490; J7040; J7060; P9016; Q0163

== ENCOUNTER 2019-04-05 20:40 | Inpatient (IN) | payer MEDICARE, MEDICAID ==
[~2019-04-05] VITALS: Ht 165.1 cm; Wt 60.3 kg
[2019-04-05] MEDS ORDERED: MORPHINE SULFATE 4 MG/ML CPJ (NOT FOR IM USE) IV STA (21:56)
[2019-04-05] MEDS ORDERED: ONDANSETRON HCL 4MG/2ML INJ IV STA (21:56)
[2019-04-05] MEDS ORDERED: DIPHENHYDRAMINE 50MG/ML VIAL IV ONE (22:00)
[2019-04-05 23:43] LABS: CHLORIDE 101 mEq/L (98-107)
[2019-04-05 23:46] LABS: BASOPHILS % 1.7 % (0.0-2.0); EOSINOPHILS % 1.7 % (0.0-5.0); LYMPHOCYTES % 22.1 % (20.0-50.0); MEAN CORPUSCULAR HEMOGLOBIN 33.7 pg (28.0-32.0); MEAN CORPUSCULAR VOLUME 98.9 fL (81.0-99.0); MEAN PLATELET VOLUME 8.9 fl (7.4-10.4); MONOCYTES % 6.6 % (2.0-8.0); NEUTROPHILS % 67.9 % (40.0-76.0); PLATELET 134 x1000/uL (130-400); RED BLOOD CELL COUNT 1.97 mill/uL (4.2-5.4); RED CELL DISTRIBUTION WIDTH 17.8 % (11.6-14.6)
[2019-04-05 23:47] LABS: ETHANOL BLOOD 78 mg/dL
[2019-04-05 23:48] LABS: INR 1.2; PARTIAL THROMBOPLASTIN TIME 30.7 sec (23.4-31.0)
[2019-04-05 23:49] LABS: HEMATOCRIT. 19.5 % (36.0-48.0); HEMOGLOBIN. 6.6 g/dL (12.0-16.0)
[2019-04-06] MEDS ORDERED: CLONIDINE 0.1MG TABLET PO PRN (05:00)
[2019-04-06 07:51] VITALS: BP 183/121
[2019-04-06 08:00] VITALS: BP 199/127
[2019-04-06] MEDS ORDERED: AMLODIPINE 2.5MG TABLET PO SCH (09:45)
[2019-04-06] MEDS ORDERED: DIPHENHYDRAMINE 50MG/ML VIAL IV PRN (10:45)
[2019-04-06] MEDS ORDERED: HYDROMORPHONE HCL/PF 2MG/ML CPJ IV PRN (10:45)
[2019-04-06] MEDS: FOLIC ACID/VITAMIN B COMP W-C TABLET PO SCH (10:59)
[2019-04-06] MEDS: CARVEDILOL 12.5MG TABLET PO SCH ×2 (11:00→21:46)
[2019-04-06] MEDS: LEVOTHYROXINE SODIUM 50MCG TABLET PO SCH (11:07)
[2019-04-06 11:51] VITALS: BP 181/122
[2019-04-06] MEDS ORDERED: ONDANSETRON HCL 4MG/2ML INJ IV PRN (13:45)
[2019-04-06] MEDS ORDERED: ALPRAZOLAM 0.5 MG TABLET PO SCH (14:00)
[2019-04-06] MEDS: ALPRAZOLAM 0.5 MG TABLET PO PRN ×2 (14:06→23:05)
[2019-04-06] MEDS: HYDROCODONE/ACETAMINOPHEN 5/325MG TABLET PO PRN ×2 (14:06→20:29)
[2019-04-06 20:00] VITALS: BP 186/113
[2019-04-06 20:57] LABS: TOTAL IRON BINDING CAPACITY 147 ug/dL (250-450)
[2019-04-06] MEDS: PHENYTOIN SODIUM EXTENDED 100MG CAPSULE PO SCH ×2 (21:30→21:44)
[2019-04-06] MEDS: AMLODIPINE 10MG TABLET PO SCH (21:44)
[2019-04-06] MEDS: HYDRALAZINE HCL 100MG TABLET PO SCH ×2 (21:45→21:47)
[2019-04-06] MEDS: ZOLPIDEM TARTRATE 5MG TABLET PO PRN (21:46)
[2019-04-07] VITALS: BP 145/82
[2019-04-07] MEDS: HYDROCODONE/ACETAMINOPHEN 5/325MG TABLET PO PRN ×5 (01:03→22:01)
[2019-04-07 04:00] VITALS: BP 169/108
[2019-04-07] MEDS: HYDRALAZINE HCL 100MG TABLET PO SCH ×3 (05:47→22:00)
[2019-04-07 07:21] LABS: HEMOGLOBIN. 7.2 g/dL (12.0-16.0); MEAN CORPUSCULAR HEMOGLOBIN 33.4 pg (28.0-32.0); MEAN CORPUSCULAR VOLUME 96.6 fL (81.0-99.0); MEAN PLATELET VOLUME 8.4 fl (7.4-10.4); PLATELET 137 x1000/uL (130-400); RED BLOOD CELL COUNT 2.14 mill/uL (4.2-5.4); RED CELL DISTRIBUTION WIDTH 16.8 % (11.6-14.6)
[2019-04-07 08:00] VITALS: BP 164/102
[2019-04-07] MEDS: CALCIUM ACETATE 667MG CAPSULE PO SCH ×3 (08:03→17:54)
[2019-04-07] MEDS: LEVOTHYROXINE SODIUM 50MCG TABLET PO SCH (08:03)
[2019-04-07] MEDS: LIDOCAINE 5% PATCH TOP SCH (08:04)
[2019-04-07] MEDS: DIPHENHYDRAMINE 25MG CAPSULE PO PRN ×4 (08:09→20:19)
[2019-04-07 08:13] LABS: HEMATOCRIT. 20.7 % (36.0-48.0)
[2019-04-07] MEDS: ALPRAZOLAM 0.5 MG TABLET PO PRN ×2 (08:38→17:10)
[2019-04-07] MEDS: FOLIC ACID/VITAMIN B COMP W-C TABLET PO SCH (08:38)
[2019-04-07] MEDS: THIAMINE HCL 100MG TABLET PO SCH (08:38)
[2019-04-07] MEDS: CARVEDILOL 12.5MG TABLET PO SCH ×2 (08:39→20:21)
[2019-04-07] MEDS: PHENYTOIN SODIUM EXTENDED 100MG CAPSULE PO SCH ×3 (08:42→17:54)
[2019-04-07] MEDS: AMLODIPINE 10MG TABLET PO SCH (08:42)
[2019-04-07 09:27] LABS: PHOSPHORUS 2.7 mg/dL (2.5-4.9)
[2019-04-07 09:40] LABS: PLATELET ESTIMATE NORMAL
[2019-04-07 12:00] VITALS: BP 149/101
[2019-04-07 16:00] VITALS: BP 159/105
[2019-04-07 20:00] VITALS: BP 167/104
[2019-04-07] MEDS: ZOLPIDEM TARTRATE 5MG TABLET PO PRN (22:05)
[2019-04-08] VITALS: BP 162/103
[2019-04-08] MEDS: DIPHENHYDRAMINE 25MG CAPSULE PO PRN ×2 (00:49→06:20)
[2019-04-08] MEDS: ALPRAZOLAM 0.5 MG TABLET PO PRN ×2 (01:15→09:23)
[2019-04-08 04:00] VITALS: BP 154/96
[2019-04-08] MEDS: HYDRALAZINE HCL 100MG TABLET PO SCH ×2 (05:05→13:04)
[2019-04-08] MEDS: HYDROCODONE/ACETAMINOPHEN 5/325MG TABLET PO PRN ×2 (05:06→11:30)
[2019-04-08] MEDS: LEVOTHYROXINE SODIUM 50MCG TABLET PO SCH (06:20)
[2019-04-08 07:17] LABS: HEMATOCRIT. 21.3 % (36.0-48.0); HEMOGLOBIN. 7.2 g/dL (12.0-16.0); MEAN CORPUSCULAR VOLUME 97.3 fL (81.0-99.0); PLATELET 175 x1000/uL (130-400); RED BLOOD CELL COUNT 2.19 mill/uL (4.2-5.4); RED CELL DISTRIBUTION WIDTH 17.2 % (11.6-14.6)
[2019-04-08 08:00] VITALS: BP 172/115
[2019-04-08] MEDS: FOLIC ACID/VITAMIN B COMP W-C TABLET PO SCH (08:42)
[2019-04-08] MEDS: LIDOCAINE 5% PATCH TOP SCH (08:42)
[2019-04-08] MEDS: CALCIUM ACETATE 667MG CAPSULE PO SCH ×2 (08:43→12:40)
[2019-04-08] MEDS: THIAMINE HCL 100MG TABLET PO SCH (08:43)
[2019-04-08] MEDS: PHENYTOIN SODIUM EXTENDED 100MG CAPSULE PO SCH ×2 (08:43→13:00)
[2019-04-08] MEDS: AMLODIPINE 10MG TABLET PO SCH (08:51)
[2019-04-08] MEDS: CARVEDILOL 12.5MG TABLET PO SCH (08:51)
[2019-04-08] MEDS ORDERED: DIPHENHYDRAMINE 50MG/ML VIAL IV NR (09:30)
[2019-04-08] MEDS ORDERED: SODIUM BICARBONATE 4% (2.4MEQ) 5ML VIAL IV ONE (10:31)
[2019-04-08] MEDS ORDERED: LIDOCAINE HCL 1% 20ML VIAL (Pyxis) INJ ONE (10:31)
[2019-04-08 11:11] LABS: PLATELET ESTIMATE NORMAL
[2019-04-08 12:00] VITALS: BP 176/111
[2019-04-08 12:43] VITALS: BP 135/92
[2019-04-08] MEDS ORDERED: HEPARIN SODIUM 1,000 UNIT/1ML VIAL IV NR (13:00)
[2019-04-20] MEDS ORDERED: ALPR2TAB2 MT (12:32)
== END 2019-04-08 15:40 | disposition home or self-care (01) | DRG 194 ==
LOC: ER 20:40 → 8WST 04-06 01:11 → EDBEDREQTM 04-06 01:15 → EDBEDREQ 04-06 01:15 → EDBEDREQDT 04-06 01:15 → ENRESERV 04-06 04:58
PROVIDERS: ADMIT Family Medicine Adult Medicine; ATTEND Family Medicine Adult Medicine
PROC: 5A1D70Z Performance of Urinary Filtration, Intermittent, Less than 6 Hours Per Day (ICD-10-PCS; principal; 2019-04-06)
PROC: 30233N1 Transfusion of Nonautologous Red Blood Cells into Peripheral Vein, Percutaneous Approach (ICD-10-PCS; 2019-04-06)
PROC: 5A1D70Z Performance of Urinary Filtration, Intermittent, Less than 6 Hours Per Day (ICD-10-PCS; 2019-04-07)
PROC: 0W9G3ZZ Drainage of Peritoneal Cavity, Percutaneous Approach (ICD-10-PCS; 2019-04-08)
DX: I13.2 Hypertensive heart and chronic kidney disease with heart failure and with stage 5 chronic kidney disease, or end stage renal disease (principal); N18.6 End stage renal disease; R18.8 Other ascites; K70.9 Alcoholic liver disease, unspecified; D63.1 Anemia in chronic kidney disease; Z99.2 Dependence on renal dialysis; F41.9 Anxiety disorder, unspecified; I50.9 Heart failure, unspecified; G47.00 Insomnia, unspecified; G40.909 Epilepsy, unspecified, not intractable, without status epilepticus; F10.10 Alcohol abuse, uncomplicated; E03.9 Hypothyroidism, unspecified; Z91.018 Allergy to other foods; Z91.010 Allergy to peanuts; Z91.14 Patient's other noncompliance with medication regimen; Z91.15 Patient's noncompliance with renal dialysis; Z91.19 Patient's noncompliance with other medical treatment and regimen
CPT/HCPCS: 36415; 36430; 49083; 71045; 74018; 76705; 80048; 80061; 80320; 82728; 83540; 83550; 83735; 83880; 84100; 84443; 84484; 86850; 86900; 86920; 93005; 93970; 96374; 96375; 99285; J1200; J1644; J2270; J2405; J3490; J7040; P9016; Q0163; G0480

== ENCOUNTER 2019-04-14 16:22 | Inpatient (IN) | payer MEDICARE, MEDICAID ==
[~2019-04-14] VITALS: Ht 165.1 cm; Wt 58.5 kg
[~2019-04-14 16:22] MED LIST changes: -AMLO2.5T2 MT
[2019-04-14 17:57] LABS: BASOPHILS % 2.3 % (0.0-2.0); EOSINOPHILS % 8.7 % (0.0-5.0); LYMPHOCYTES % 31.2 % (20.0-50.0); MEAN CORPUSCULAR HEMOGLOBIN 33.8 pg (28.0-32.0); MEAN CORPUSCULAR VOLUME 99.5 fL (81.0-99.0); MEAN PLATELET VOLUME 7.2 fl (7.4-10.4); MONOCYTES % 11.7 % (2.0-8.0); NEUTROPHILS % 46.1 % (40.0-76.0); PLATELET 201 x1000/uL (130-400); RED CELL DISTRIBUTION WIDTH 18.2 % (11.6-14.6)
[2019-04-14 17:59] LABS: HEMATOCRIT. 18.9 % (36.0-48.0); HEMOGLOBIN. 6.4 g/dL (12.0-16.0)
[2019-04-14 18:08] LABS: CHLORIDE 102 mEq/L (98-107)
[2019-04-14] MEDS ORDERED: ONDANSETRON HCL 4MG/2ML INJ IV STA (18:41)
[2019-04-14] MEDS ORDERED: MORPHINE SULFATE 4 MG/ML CPJ (NOT FOR IM USE) IV STA (18:41)
[2019-04-14] MEDS ORDERED: DIPHENHYDRAMINE 50MG/ML VIAL IV ONE (18:45)
[2019-04-14] MEDS ORDERED: LORAZEPAM 2MG/ML CPJ IV ONE (20:30)
[2019-04-14 22:25] VITALS: BP 183/119
[2019-04-14] MEDS ORDERED: NON FORMULARY PATIENT HOME MED XX SCH ×2 (23:15→23:45)
[2019-04-14] MEDS ORDERED: ACETAMINOPHEN 325MG TABLET PO PRN (23:15)
[2019-04-14] MEDS ORDERED: ONDANSETRON HCL 4MG/2ML INJ IV PRN (23:15)
[2019-04-14] MEDS ORDERED: DIPHENHYDRAMINE 50MG/ML VIAL IV PRN (23:38)
[2019-04-15] VITALS: BP 178/121
[2019-04-15] MEDS: MORPHINE SULFATE 2 MG/ML CPJ (NOT FOR IM USE) IV PRN ×2 (00:30→09:43)
[2019-04-15] MEDS: CLONIDINE 0.1MG TABLET PO PRN ×2 (00:34→06:04)
[2019-04-15] MEDS: DIPHENHYDRAMINE 50MG/ML VIAL IV PRN ×3 (01:19→20:16)
[2019-04-15 04:00] VITALS: BP 178/126
[2019-04-15] MEDS: ALPRAZOLAM 0.5 MG TABLET PO PRN ×2 (06:04→18:14)
[2019-04-15] MEDS: HYDRALAZINE HCL 100MG TABLET PO SCH ×3 (06:04→22:04)
[2019-04-15 06:17] LABS: HEMATOCRIT. 22.9 % (36.0-48.0); HEMOGLOBIN. 7.7 g/dL (12.0-16.0); MEAN CORPUSCULAR HEMOGLOBIN 33.1 pg (28.0-32.0); MEAN PLATELET VOLUME 8.2 fl (7.4-10.4); PLATELET 172 x1000/uL (130-400); RED BLOOD CELL COUNT 2.34 mill/uL (4.2-5.4); RED CELL DISTRIBUTION WIDTH 17.9 % (11.6-14.6)
[2019-04-15] MEDS ORDERED: LEVOTHYROXINE SODIUM 25MCG TABLET PO SCH (07:40)
[2019-04-15 08:14] VITALS: BP 130/93
[2019-04-15] MEDS ORDERED: DIPHENHYDRAMINE 50MG/ML VIAL IV SCH (08:30)
[2019-04-15] MEDS: CALCIUM ACETATE 667MG CAPSULE PO SCH ×3 (09:31→18:14)
[2019-04-15] MEDS: CARVEDILOL 12.5MG TABLET PO SCH ×2 (09:32→22:03)
[2019-04-15] MEDS: AMLODIPINE 10MG TABLET PO SCH (09:32)
[2019-04-15] MEDS: FOLIC ACID/VITAMIN B COMP W-C TABLET PO SCH (09:32)
[2019-04-15] MEDS: PHENYTOIN SODIUM EXTENDED 100MG CAPSULE PO SCH ×3 (09:32→18:14)
[2019-04-15 10:22] LABS: PLATELET ESTIMATE NORMAL
[2019-04-15 12:00] VITALS: BP 141/100
[2019-04-15] MEDS ORDERED: PIPERACILLIN/TAZOBACTAM 3.375 G in DEXT 5% WATER 100 ML IV SCH (13:15)
[2019-04-15 16:00] VITALS: BP 137/84
[2019-04-15] MEDS ORDERED: IPRATROPIUM/ALBUTEROL 0.5-3(2.5)MG/3ML NEB HHN SCH (17:15)
[2019-04-15] MEDS ORDERED: IPRATROPIUM/ALBUTEROL 0.5-3(2.5)MG/3ML NEB HHN PRN (17:15)
[2019-04-15] MEDS ORDERED: PHENYTOIN SODIUM 500 MG in SODIUM CHLORIDE 0.9% 50 ML IV SCH (18:00)
[2019-04-15] MEDS: PIPERACILLIN/TAZOBACTAM 2.25 G in DEXTROSE 5% WATER 50 ML IV SCH (18:32)
[2019-04-15 20:00] VITALS: BP 159/99
[2019-04-15] MEDS: HYDROCODONE/ACETAMINOPHEN 10/325MG TABLET PO PRN (20:08)
[2019-04-15] MEDS: PANTOPRAZOLE SODIUM 40 MG/VIAL IV SCH (22:07)
[2019-04-16] VITALS: BP 128/100
[2019-04-16] MEDS: ALPRAZOLAM 0.5 MG TABLET PO PRN ×3 (01:57→23:06)
[2019-04-16] MEDS: PIPERACILLIN/TAZOBACTAM 2.25 G in DEXTROSE 5% WATER 50 ML IV SCH ×4 (02:26→22:06)
[2019-04-16 04:00] VITALS: BP 143/95
[2019-04-16] MEDS: DIPHENHYDRAMINE 50MG/ML VIAL IV PRN ×3 (05:20→21:10)
[2019-04-16] MEDS: HYDRALAZINE HCL 100MG TABLET PO SCH ×3 (06:25→21:10)
[2019-04-16 06:45] LABS: HEMATOCRIT. 24.2 % (36.0-48.0); HEMOGLOBIN. 8.2 g/dL (12.0-16.0); MEAN CORPUSCULAR HEMOGLOBIN 33.9 pg (28.0-32.0); MEAN CORPUSCULAR VOLUME 99.8 fL (81.0-99.0); MEAN PLATELET VOLUME 8.2 fl (7.4-10.4); PLATELET 176 x1000/uL (130-400); RED BLOOD CELL COUNT 2.42 mill/uL (4.2-5.4); RED CELL DISTRIBUTION WIDTH 18.9 % (11.6-14.6)
[2019-04-16 06:46] LABS: CHLORIDE 101 mEq/L (98-107)
[2019-04-16 08:00] VITALS: BP 139/90
[2019-04-16] MEDS: PANTOPRAZOLE SODIUM 40 MG/VIAL IV SCH ×2 (09:31→21:10)
[2019-04-16] MEDS: CALCIUM ACETATE 667MG CAPSULE PO SCH ×3 (09:32→17:15)
[2019-04-16] MEDS: FOLIC ACID/VITAMIN B COMP W-C TABLET PO SCH (09:32)
[2019-04-16] MEDS: PHENYTOIN SODIUM EXTENDED 100MG CAPSULE PO SCH ×3 (09:32→17:15)
[2019-04-16] MEDS: LEVOTHYROXINE SODIUM 50MCG TABLET PO SCH (09:32)
[2019-04-16] MEDS: HYDROCODONE/ACETAMINOPHEN 10/325MG TABLET PO PRN ×2 (09:33→18:39)
[2019-04-16] MEDS: CARVEDILOL 12.5MG TABLET PO SCH ×2 (09:34→21:10)
[2019-04-16] MEDS: AMLODIPINE 10MG TABLET PO SCH (09:34)
[2019-04-16 12:00] VITALS: BP 138/92
[2019-04-16 16:00] VITALS: BP 144/94
[2019-04-16 20:00] VITALS: BP 147/91
[2019-04-17] VITALS: BP 142/94
[2019-04-17 04:00] VITALS: BP 136/88
[2019-04-17 04:27] LABS: PLATELET ESTIMATE NORMAL
[2019-04-17] MEDS: DIPHENHYDRAMINE 50MG/ML VIAL IV PRN ×2 (05:42→17:06)
[2019-04-17] MEDS: HYDRALAZINE HCL 100MG TABLET PO SCH ×2 (05:42→14:00)
[2019-04-17] MEDS: PIPERACILLIN/TAZOBACTAM 2.25 G in DEXTROSE 5% WATER 50 ML IV SCH ×2 (05:43→17:04)
[2019-04-17 06:06] LABS: CHLORIDE 100 mEq/L (98-107)
[2019-04-17 06:45] LABS: BASOPHILS % 2.1 % (0.0-2.0); EOSINOPHILS % 8.8 % (0.0-5.0); HEMATOCRIT. 27.3 % (36.0-48.0); HEMOGLOBIN. 9.1 g/dL (12.0-16.0); LYMPHOCYTES % 22.8 % (20.0-50.0); MEAN CORPUSCULAR HEMOGLOBIN 32.9 pg (28.0-32.0); MEAN CORPUSCULAR VOLUME 98.6 fL (81.0-99.0); MEAN PLATELET VOLUME 8.1 fl (7.4-10.4); MONOCYTES % 13.6 % (2.0-8.0); NEUTROPHILS % 52.7 % (40.0-76.0); PLATELET 176 x1000/uL (130-400); RED BLOOD CELL COUNT 2.77 mill/uL (4.2-5.4); RED CELL DISTRIBUTION WIDTH 18.3 % (11.6-14.6)
[2019-04-17 07:18] LABS: PARTIAL THROMBOPLASTIN TIME 29.6 sec (23.4-31.0); PROTHROMBIN TIME 10.8 sec (9.6-11.0)
[2019-04-17] MEDS: LEVOTHYROXINE SODIUM 50MCG TABLET PO SCH (07:40)
[2019-04-17 08:00] VITALS: BP 142/91
[2019-04-17] MEDS: CALCIUM ACETATE 667MG CAPSULE PO SCH ×3 (08:10→17:04)
[2019-04-17] MEDS: CARVEDILOL 12.5MG TABLET PO SCH (09:00)
[2019-04-17] MEDS: AMLODIPINE 10MG TABLET PO SCH (09:00)
[2019-04-17] MEDS: FOLIC ACID/VITAMIN B COMP W-C TABLET PO SCH (09:00)
[2019-04-17] MEDS: PHENYTOIN SODIUM EXTENDED 100MG CAPSULE PO SCH ×3 (09:00→17:04)
[2019-04-17] MEDS: PANTOPRAZOLE SODIUM 40 MG/VIAL IV SCH (10:00)
[2019-04-17] MEDS ORDERED: LIDOCAINE HCL 1% 20ML VIAL (Pyxis) INJ ONE (10:47)
[2019-04-17] MEDS ORDERED: IOHEXOL-300 50 ML BOTTLE IV ONE (11:33)
[2019-04-17 12:00] VITALS: BP 150/100
[2019-04-17] MEDS ORDERED: FENTANYL CITRATE/PF 50MCG/ML 2ML VIAL ONE (15:56)
[2019-04-17] MEDS ORDERED: MIDAZOLAM HCL 5 MG/5 ML VIAL ONE (15:56)
[2019-04-17 16:00] VITALS: BP 163/93
[2019-04-17] MEDS ORDERED: FENTANYL CITRATE/PF 50MCG/ML 2ML VIAL IV PRN (16:00)
[2019-04-17] MEDS ORDERED: MIDAZOLAM HCL 5 MG/5 ML VIAL IV PRN (16:03)
[2019-04-17 18:40] VITALS: BP 163/93
== END 2019-04-17 19:37 | disposition home or self-care (01) | DRG 377 ==
LOC: ER 16:22 → 7WST 19:09 → ENRESERV 20:37 → 7WST 23:30
PROVIDERS: ADMIT Internal Medicine; ATTEND Internal Medicine
PROC: 30233N1 Transfusion of Nonautologous Red Blood Cells into Peripheral Vein, Percutaneous Approach (ICD-10-PCS; principal; 2019-04-14)
PROC: 5A1D70Z Performance of Urinary Filtration, Intermittent, Less than 6 Hours Per Day (ICD-10-PCS; 2019-04-15)
PROC: 02HV33Z Insertion of Infusion Device into Superior Vena Cava, Percutaneous Approach (ICD-10-PCS; 2019-04-17)
PROC: B5181ZA Fluoroscopy of Superior Vena Cava using Low Osmolar Contrast, Guidance (ICD-10-PCS; 2019-04-17)
PROC: B548ZZA Ultrasonography of Superior Vena Cava, Guidance (ICD-10-PCS; 2019-04-17)
PROC: 0DB68ZX Excision of Stomach, Via Natural or Artificial Opening Endoscopic, Diagnostic (ICD-10-PCS; 2019-04-17)
PROC: 5A1D70Z Performance of Urinary Filtration, Intermittent, Less than 6 Hours Per Day (ICD-10-PCS; 2019-04-17)
DX: K29.71 Gastritis, unspecified, with bleeding (principal); N18.6 End stage renal disease; J18.9 Pneumonia, unspecified organism; I13.2 Hypertensive heart and chronic kidney disease with heart failure and with stage 5 chronic kidney disease, or end stage renal disease; E44.1 Mild protein-calorie malnutrition; E87.1 Hypo-osmolality and hyponatremia; K86.0 Alcohol-induced chronic pancreatitis; Z99.2 Dependence on renal dialysis; E78.5 Hyperlipidemia, unspecified; F10.10 Alcohol abuse, uncomplicated; R74.0 Nonspecific elevation of levels of transaminase and lactic acid dehydrogenase [LDH]; D63.8 Anemia in other chronic diseases classified elsewhere; D53.9 Nutritional anemia, unspecified; K70.31 Alcoholic cirrhosis of liver with ascites; E03.9 Hypothyroidism, unspecified; E78.00 Pure hypercholesterolemia, unspecified; F41.9 Anxiety disorder, unspecified; G40.909 Epilepsy, unspecified, not intractable, without status epilepticus; I50.9 Heart failure, unspecified; Z91.15 Patient's noncompliance with renal dialysis; Z76.5 Malingerer [conscious simulation]; Z91.018 Allergy to other foods; Z71.41 Alcohol abuse counseling and surveillance of alcoholic; Z68.21 Body mass index [BMI] 21.0-21.9, adult
CPT/HCPCS: 36415; 36573; 71045; 80048; 80185; 83880; 84484; 86850; 86900; 86920; 88305; 88312; 88313; 93005; 99285; C1725; C9113; J1165; J1200; J2060; J2250; J2270; J2405; J2543; J3010; J3490; J7040; J7060; P9016; Q9967

== ENCOUNTER 2019-05-08 13:16 | Inpatient (IN) | payer MEDICARE, MEDICAID ==
[~2019-05-08] VITALS: Ht 162.6 cm; Wt 61.9 kg
[2019-05-08] MEDS ORDERED: MORPHINE SULFATE 4 MG/ML CPJ (NOT FOR IM USE) IV STA (14:59)
[2019-05-08 15:37] LABS: BASOPHILS % 0.4 % (0.0-2.0); EOSINOPHILS % 3.2 % (0.0-5.0); LYMPHOCYTES % 11.4 % (20.0-50.0); MEAN CORPUSCULAR HEMOGLOBIN 33.6 pg (28.0-32.0); MEAN CORPUSCULAR VOLUME 99.1 fL (81.0-99.0); MEAN PLATELET VOLUME 7.3 fl (7.4-10.4); MONOCYTES % 12.8 % (2.0-8.0); NEUTROPHILS % 72.2 % (40.0-76.0); PLATELET 86 x1000/uL (130-400); RED BLOOD CELL COUNT 1.61 mill/uL (4.2-5.4); RED CELL DISTRIBUTION WIDTH 18.3 % (11.6-14.6)
[2019-05-08 15:43] LABS: CHLORIDE 95 mEq/L (98-107); INR 1.2; PROTHROMBIN TIME 11.8 sec (9.6-11.0)
[2019-05-08 15:52] LABS: HEMATOCRIT. 15.9 % (36.0-48.0); HEMOGLOBIN. 5.4 g/dL (12.0-16.0)
[2019-05-08] MEDS ORDERED: CLONIDINE 0.1MG TABLET PO PRN (18:00)
[2019-05-08] MEDS ORDERED: ACETAMINOPHEN 325MG TABLET PO PRN (18:00)
[2019-05-08] MEDS ORDERED: ONDANSETRON HCL 4MG/2ML INJ IV PRN (18:00)
[2019-05-08] MEDS: HYDROCODONE/ACETAMINOPHEN 5/325MG TABLET PO PRN (18:34)
[2019-05-08] MEDS: DIPHENHYDRAMINE 25MG CAPSULE PO PRN (18:34)
[2019-05-08] MEDS ORDERED: ALPRAZOLAM 0.5 MG TABLET PO NR (22:35)
[2019-05-08] MEDS ORDERED: HYDRALAZINE HCL 100MG TABLET PO NR (22:36)
[2019-05-09] MEDS: HYDROCODONE/ACETAMINOPHEN 5/325MG TABLET PO PRN ×2 (00:01→04:42)
[2019-05-09] MEDS: DIPHENHYDRAMINE 25MG CAPSULE PO PRN (02:37)
[2019-05-09] MEDS ORDERED: LOSARTAN POTASSIUM 100 MG TABLET PO NR (03:00)
[2019-05-09] MEDS ORDERED: HYDRALAZINE HCL 100MG TABLET PO SCH ×2 (06:00→14:00)
[2019-05-09 06:36] LABS: BASOPHILS % 0.7 % (0.0-2.0); EOSINOPHILS % 3.6 % (0.0-5.0); LYMPHOCYTES % 17.8 % (20.0-50.0); MEAN CORPUSCULAR HEMOGLOBIN 32.5 pg (28.0-32.0); MEAN CORPUSCULAR VOLUME 93.6 fL (81.0-99.0); MEAN PLATELET VOLUME 7.5 fl (7.4-10.4); MONOCYTES % 13.4 % (2.0-8.0); NEUTROPHILS % 64.5 % (40.0-76.0); PLATELET 90 x1000/uL (130-400); RED BLOOD CELL COUNT 2.09 mill/uL (4.2-5.4); RED CELL DISTRIBUTION WIDTH 19.6 % (11.6-14.6)
[2019-05-09 06:39] LABS: HEMATOCRIT. 19.5 % (36.0-48.0); HEMOGLOBIN. 6.8 g/dL (12.0-16.0)
[2019-05-09] MEDS: ALPRAZOLAM 0.5 MG TABLET PO SCH ×3 (07:23→23:58)
[2019-05-09] MEDS ORDERED: OMEPRAZOLE 20MG CAPSULE EXTENDED RELEASE PO SCH (07:50)
[2019-05-09] MEDS ORDERED: LEVOTHYROXINE SODIUM 50MCG TABLET PO SCH (07:50)
[2019-05-09] MEDS ORDERED: SODIUM BICARBONATE 4% (2.4MEQ) 5ML VIAL IV ONE (08:33)
[2019-05-09] MEDS ORDERED: LIDOCAINE HCL 1% 20ML VIAL (Pyxis) INJ ONE (08:33)
[2019-05-09 10:10] VITALS: BP 147/126
[2019-05-09 10:30] VITALS: BP 147/126
[2019-05-09] MEDS ORDERED: DIPHENHYDRAMINE 50MG/ML VIAL IV PRN (12:00)
[2019-05-09] MEDS: MORPHINE SULFATE 2 MG/ML CPJ (NOT FOR IM USE) IV PRN ×2 (12:19→16:01)
[2019-05-09] MEDS: FOLIC ACID/VITAMIN B COMP W-C TABLET PO SCH (15:38)
[2019-05-09] MEDS: AMLODIPINE 10MG TABLET PO SCH (15:38)
[2019-05-09] MEDS ORDERED: DIPHENHYDRAMINE 50MG/ML VIAL IV NR (17:15)
[2019-05-09] MEDS: PHENYTOIN SODIUM EXTENDED 100MG CAPSULE PO SCH (17:42)
[2019-05-09] MEDS: CALCIUM ACETATE 667MG CAPSULE PO SCH (17:42)
[2019-05-09] MEDS ORDERED: MEDICATION NOT ON FORMULARY EA (Zolpidem Tartrate (Ambien Pak) 10 MG) PO PRN (19:45)
[2019-05-09 20:59] VITALS: BP 155/107
[2019-05-09] MEDS ORDERED: ZOLPIDEM TARTRATE 5MG TABLET PO PRN (21:00)
[2019-05-09 21:11] VITALS: BP 162/103
[2019-05-09 21:14] VITALS: BP 162/103
[2019-05-09 21:49] VITALS: BP 178/116
[2019-05-09] MEDS: CARVEDILOL 12.5MG TABLET PO SCH (21:55)
[2019-05-10] VITALS: BP 142/98
[2019-05-10] MEDS: MORPHINE SULFATE 2 MG/ML CPJ (NOT FOR IM USE) IV PRN ×2 (00:47→05:09)
[2019-05-10 04:00] VITALS: BP 141/88
[2019-05-10] MEDS: ALPRAZOLAM 0.5 MG TABLET PO SCH (05:45)
[2019-05-10 07:42] LABS: EOSINOPHILS % 5.8 % (0.0-5.0); HEMATOCRIT. 25.3 % (36.0-48.0); HEMOGLOBIN. 8.7 g/dL (12.0-16.0); LYMPHOCYTES % 22.4 % (20.0-50.0); MEAN CORPUSCULAR VOLUME 92.9 fL (81.0-99.0); MONOCYTES % 13.7 % (2.0-8.0); NEUTROPHILS % 57.1 % (40.0-76.0); PLATELET 91 x1000/uL (130-400); RED BLOOD CELL COUNT 2.73 mill/uL (4.2-5.4); RED CELL DISTRIBUTION WIDTH 18.2 % (11.6-14.6)
[2019-05-10] MEDS: FOLIC ACID/VITAMIN B COMP W-C TABLET PO SCH (08:38)
[2019-05-10] MEDS: AMLODIPINE 10MG TABLET PO SCH (08:41)
[2019-05-10] MEDS: PHENYTOIN SODIUM EXTENDED 100MG CAPSULE PO SCH (08:41)
[2019-05-10] MEDS: CARVEDILOL 12.5MG TABLET PO SCH (08:42)
[2019-05-10] MEDS: CALCIUM ACETATE 667MG CAPSULE PO SCH (08:45)
[2019-05-10] MEDS ORDERED: LEVOTHYROXINE SODIUM 25MCG TABLET PO SCH (09:00)
[2019-05-10] MEDS ORDERED: LOSARTAN POTASSIUM 100 MG TABLET PO SCH (09:00)
[2019-05-10 12:00] VITALS: BP 136/93
[2019-05-10] MEDS ORDERED: ALPR2TAB2 MT (12:24)
[2019-05-10 13:31] VITALS: BP 136/93
[2019-05-11 08:07] LABS: IMMUNOGLOBULIN A 369 mg/dL (87-352); IMMUNOGLOBULIN G 1599 mg/dL (700-1600); IMMUNOGLOBULIN M 95 mg/dL (26-217)
== END 2019-05-10 15:55 | disposition home or self-care (01) | DRG 280 ==
LOC: ER 13:36 → 8WST 16:55 → EDBEDREQSVC 19:11 → ENRESERV 05-09 09:21
PROVIDERS: ADMIT Internal Medicine; ATTEND Internal Medicine
PROC: 30233N1 Transfusion of Nonautologous Red Blood Cells into Peripheral Vein, Percutaneous Approach (ICD-10-PCS; 2019-05-08)
PROC: 0W9G3ZZ Drainage of Peritoneal Cavity, Percutaneous Approach (ICD-10-PCS; principal; 2019-05-09)
PROC: 5A1D70Z Performance of Urinary Filtration, Intermittent, Less than 6 Hours Per Day (ICD-10-PCS; 2019-05-09)
PROC: 5A1D70Z Performance of Urinary Filtration, Intermittent, Less than 6 Hours Per Day (ICD-10-PCS; 2019-05-10)
DX: K70.31 Alcoholic cirrhosis of liver with ascites (principal); K70.40 Alcoholic hepatic failure without coma; I13.2 Hypertensive heart and chronic kidney disease with heart failure and with stage 5 chronic kidney disease, or end stage renal disease; D61.818 Other pancytopenia; N18.6 End stage renal disease; E87.8 Other disorders of electrolyte and fluid balance, not elsewhere classified; E44.1 Mild protein-calorie malnutrition; I50.9 Heart failure, unspecified; K29.70 Gastritis, unspecified, without bleeding; E03.9 Hypothyroidism, unspecified; F41.9 Anxiety disorder, unspecified; F10.10 Alcohol abuse, uncomplicated; G40.909 Epilepsy, unspecified, not intractable, without status epilepticus; Z62 Problems related to upbringing; Z91.15 Patient's noncompliance with renal dialysis; Z91.010 Allergy to peanuts; Z76.5 Malingerer [conscious simulation]; Z91.018 Allergy to other foods; Z99.2 Dependence on renal dialysis
CPT/HCPCS: 36415; 49083; 71045; 74176; 80048; 82784; 83010; 83605; 83615; 83880; 84484; 86334; 86850; 86880; 86900; 86920; 93005; 99291; J1200; J2270; J3490; P9016; Q0163

== ENCOUNTER 2019-06-03 19:08 | Inpatient (IN) | payer MEDICARE, MEDICAID ==
[~2019-06-03] VITALS: Ht 170.2 cm; Wt 54.4 kg
[2019-06-03] MEDS ORDERED: CLONIDINE 0.2MG TABLET PO ONE (20:45)
[2019-06-03 22:24] LABS: BASOPHILS % 1.7 % (0.0-2.0); EOSINOPHILS % 8.2 % (0.0-5.0); HEMATOCRIT. 21.4 % (36.0-48.0); HEMOGLOBIN. 7.4 g/dL (12.0-16.0); MEAN CORPUSCULAR HEMOGLOBIN 31.9 pg (28.0-32.0); MEAN CORPUSCULAR VOLUME 92.4 fL (81.0-99.0); MEAN PLATELET VOLUME 8.7 fl (7.4-10.4); MONOCYTES % 11.9 % (2.0-8.0); NEUTROPHILS % 50.2 % (40.0-76.0); PLATELET 123 x1000/uL (130-400); RED BLOOD CELL COUNT 2.32 mill/uL (4.2-5.4); RED CELL DISTRIBUTION WIDTH 17.5 % (11.6-14.6)
[2019-06-03 22:25] LABS: CHLORIDE 107 mEq/L (98-107)
[2019-06-03 22:27] LABS: INR 1.3
[2019-06-03 23:10] VITALS: BP 178/128
[2019-06-04] MEDS ORDERED: NIFEDIPINE XL 60MG TAB PO SCH
[2019-06-04] MEDS: DIPHENHYDRAMINE 50MG/ML VIAL IV PRN ×4 (01:41→20:11)
[2019-06-04] MEDS: MORPHINE SULFATE 2 MG/ML CPJ (NOT FOR IM USE) IV PRN ×2 (01:42→06:28)
[2019-06-04 06:30] LABS: BASOPHILS % 1.7 % (0.0-2.0); HEMATOCRIT. 22.6 % (36.0-48.0); HEMOGLOBIN. 7.7 g/dL (12.0-16.0); LYMPHOCYTES % 22.8 % (20.0-50.0); MEAN CORPUSCULAR HEMOGLOBIN 31.6 pg (28.0-32.0); MEAN PLATELET VOLUME 8.6 fl (7.4-10.4); MONOCYTES % 12.9 % (2.0-8.0); NEUTROPHILS % 56.6 % (40.0-76.0); PLATELET 127 x1000/uL (130-400); RED BLOOD CELL COUNT 2.43 mill/uL (4.2-5.4); RED CELL DISTRIBUTION WIDTH 17.8 % (11.6-14.6)
[2019-06-04 06:32] LABS: CHLORIDE 106 mEq/L (98-107)
[2019-06-04 06:41] LABS: PHOSPHORUS 5.2 mg/dL (2.5-4.9)
[2019-06-04 08:00] VITALS: BP 158/106
[2019-06-04] MEDS ORDERED: CLONIDINE 0.1MG TABLET PO PRN (08:00)
[2019-06-04] MEDS: FOLIC ACID/VITAMIN B COMP W-C TABLET PO SCH (08:35)
[2019-06-04] MEDS: SEVELAMER CARBONATE 800 MG TABLET PO SCH ×2 (08:35→17:38)
[2019-06-04] MEDS: CARVEDILOL 6.25 MG TABLET PO SCH ×2 (08:35→20:10)
[2019-06-04] MEDS: PHENYTOIN SODIUM EXTENDED 100MG CAPSULE PO SCH ×3 (08:35→19:12)
[2019-06-04] MEDS: OMEPRAZOLE 20MG CAPSULE EXTENDED RELEASE PO SCH (09:11)
[2019-06-04] MEDS: ALPRAZOLAM 0.5 MG TABLET PO PRN ×2 (09:11→18:07)
[2019-06-04] MEDS: NIFEDIPINE XL 60MG TAB PO SCH ×2 (09:12→20:10)
[2019-06-04] MEDS: LEVOTHYROXINE SODIUM 50MCG TABLET PO SCH (09:12)
[2019-06-04 12:00] VITALS: BP 162/100
[2019-06-04] MEDS: HYDROCODONE/ACETAMINOPHEN 5/325MG TABLET PO PRN (15:27)
[2019-06-04] MEDS ORDERED: DIPHENHYDRAMINE 50MG/ML VIAL IV NR (15:45)
[2019-06-04 16:00] VITALS: BP 157/90
[2019-06-04] MEDS: LOSARTAN POTASSIUM 100 MG TABLET PO SCH (16:00)
[2019-06-04 20:00] VITALS: BP 157/103
[2019-06-04] MEDS: ZOLPIDEM TARTRATE 5MG TABLET PO PRN (22:46)
[2019-06-05] VITALS (10 sets, daily range): BP systolic 113–161; BP diastolic 74–101
[2019-06-05] MEDS: ALPRAZOLAM 0.5 MG TABLET PO PRN ×3 (01:18→17:33)
[2019-06-05] MEDS: DIPHENHYDRAMINE 50MG/ML VIAL IV PRN ×4 (03:04→22:31)
[2019-06-05 07:04] LABS: MEAN CORPUSCULAR VOLUME 92.7 fL (81.0-99.0); MEAN PLATELET VOLUME 8.6 fl (7.4-10.4); PLATELET 127 x1000/uL (130-400); RED BLOOD CELL COUNT 2.18 mill/uL (4.2-5.4); RED CELL DISTRIBUTION WIDTH 17.7 % (11.6-14.6)
[2019-06-05 07:11] LABS: HEMATOCRIT. 20.2 % (36.0-48.0)
[2019-06-05] MEDS: NIFEDIPINE XL 60MG TAB PO SCH ×2 (08:38→20:45)
[2019-06-05] MEDS: SEVELAMER CARBONATE 800 MG TABLET PO SCH ×2 (08:38→17:29)
[2019-06-05] MEDS: PHENYTOIN SODIUM EXTENDED 100MG CAPSULE PO SCH ×3 (08:38→16:51)
[2019-06-05] MEDS: FOLIC ACID/VITAMIN B COMP W-C TABLET PO SCH (08:38)
[2019-06-05] MEDS: CARVEDILOL 6.25 MG TABLET PO SCH ×2 (08:39→20:45)
[2019-06-05] MEDS: LOSARTAN POTASSIUM 100 MG TABLET PO SCH (08:39)
[2019-06-05] MEDS: LEVOTHYROXINE SODIUM 50MCG TABLET PO SCH (08:39)
[2019-06-05] MEDS: OMEPRAZOLE 20MG CAPSULE EXTENDED RELEASE PO SCH (08:39)
[2019-06-05 14:12] LABS: PLATELET ESTIMATE SLIGHTLY DECREASED
[2019-06-05] MEDS: ZOLPIDEM TARTRATE 5MG TABLET PO PRN (20:41)
[2019-06-05] MEDS: HYDROCODONE/ACETAMINOPHEN 5/325MG TABLET PO PRN (23:48)
[2019-06-06] VITALS (7 sets, daily range): BP systolic 129–175; BP diastolic 86–122
[2019-06-06] MEDS: ALPRAZOLAM 0.5 MG TABLET PO PRN ×2 (01:42→12:45)
[2019-06-06] MEDS: CLONIDINE 0.2MG TABLET PO PRN ×2 (02:24→13:19)
[2019-06-06] MEDS: DIPHENHYDRAMINE 50MG/ML VIAL IV PRN ×2 (04:39→12:00)
[2019-06-06 07:45] LABS: HEMATOCRIT. 24.8 % (36.0-48.0); HEMOGLOBIN. 8.5 g/dL (12.0-16.0); MEAN CORPUSCULAR HEMOGLOBIN 31.5 pg (28.0-32.0); MEAN CORPUSCULAR VOLUME 92.2 fL (81.0-99.0); MEAN PLATELET VOLUME 8.7 fl (7.4-10.4); PLATELET 133 x1000/uL (130-400); RED BLOOD CELL COUNT 2.69 mill/uL (4.2-5.4); RED CELL DISTRIBUTION WIDTH 17.5 % (11.6-14.6)
[2019-06-06] MEDS: LEVOTHYROXINE SODIUM 50MCG TABLET PO SCH (08:40)
[2019-06-06] MEDS: OMEPRAZOLE 20MG CAPSULE EXTENDED RELEASE PO SCH (08:40)
[2019-06-06] MEDS: NIFEDIPINE XL 60MG TAB PO SCH (08:41)
[2019-06-06] MEDS: FOLIC ACID/VITAMIN B COMP W-C TABLET PO SCH (08:41)
[2019-06-06] MEDS: PHENYTOIN SODIUM EXTENDED 100MG CAPSULE PO SCH ×3 (08:41→16:39)
[2019-06-06] MEDS: CARVEDILOL 6.25 MG TABLET PO SCH (08:41)
[2019-06-06] MEDS: LOSARTAN POTASSIUM 100 MG TABLET PO SCH (08:41)
[2019-06-06] MEDS: SEVELAMER CARBONATE 800 MG TABLET PO SCH ×2 (08:41→17:33)
[2019-06-06] MEDS ORDERED: OMEP20CA14 PO (09:08)
[2019-06-06] MEDS ORDERED: PHEN100C12 PO (09:08)
[2019-06-06] MEDS ORDERED: LEVO25TA7 PO (09:08)
[2019-06-06] MEDS ORDERED: HYDR100T26 PO (09:08)
[2019-06-06] MEDS ORDERED: CALC667C PO (09:08)
[2019-06-06] MEDS ORDERED: ALPR2TAB2 MT (09:08)
[2019-06-06] MEDS ORDERED: AMLO10TA80 PO (09:08)
[2019-06-06] MEDS ORDERED: HYDROMORPHONE HCL/PF 2MG/ML CPJ IV PRN (10:30)
[2019-06-06] MEDS ORDERED: HYDRALAZINE HCL 50MG TABLET PO SCH (21:00)
[2019-06-07 09:31] LABS: PLATELET ESTIMATE NORMAL
[2019-06-17] MEDS ORDERED: ALPR2TAB2 MT (17:24)
== END 2019-06-06 19:07 | disposition home or self-care (01) ==
LOC: ER 19:08 → 7WST 21:56 → ENRESERV 22:30
PROVIDERS: ADMIT Internal Medicine; ATTEND Internal Medicine
PROC: 5A1D70Z Performance of Urinary Filtration, Intermittent, Less than 6 Hours Per Day (ICD-10-PCS; 2019-06-04)
PROC: 30233N1 Transfusion of Nonautologous Red Blood Cells into Peripheral Vein, Percutaneous Approach (ICD-10-PCS; 2019-06-05)
PROC: 0W9G3ZZ Drainage of Peritoneal Cavity, Percutaneous Approach (ICD-10-PCS; principal; 2019-06-06)
PROC: 5A1D70Z Performance of Urinary Filtration, Intermittent, Less than 6 Hours Per Day (ICD-10-PCS; 2019-06-06)
DX: R18.8 Other ascites (principal); I13.2 Hypertensive heart and chronic kidney disease with heart failure and with stage 5 chronic kidney disease, or end stage renal disease; N18.6 End stage renal disease; E44.1 Mild protein-calorie malnutrition; K74.60 Unspecified cirrhosis of liver; I16.0 Hypertensive urgency; I50.9 Heart failure, unspecified; G40.909 Epilepsy, unspecified, not intractable, without status epilepticus; K29.70 Gastritis, unspecified, without bleeding; E03.9 Hypothyroidism, unspecified; D64.9 Anemia, unspecified; R74.0 Nonspecific elevation of levels of transaminase and lactic acid dehydrogenase [LDH]; F10.20 Alcohol dependence, uncomplicated; F41.9 Anxiety disorder, unspecified; Z99.2 Dependence on renal dialysis; Z91.018 Allergy to other foods; Z79.899 Other long term (current) drug therapy; Z71.41 Alcohol abuse counseling and surveillance of alcoholic; Z98.891 History of uterine scar from previous surgery; Z68.1 Body mass index [BMI] 19.9 or less, adult
CPT/HCPCS: 36415; 49083; 71045; 76705; 80048; 80051; 80053; 84100; 84484; 85025; 86850; 86900; 86920; 93005; 99285; J1170; J1200; J2270; P9016

== ENCOUNTER 2019-06-29 18:37 | Inpatient (IN) | payer MEDICARE, MEDICAID ==
[~2019-06-29] VITALS: Ht 170.2 cm; Wt 62.3 kg
[~2019-06-29 18:37] MED LIST changes: +OMEP20CA14 PO
[2019-06-29] MEDS ORDERED: VISCOUS LIDOCAINE 2% 15 ML UDC PO ONE (22:15)
[2019-06-29] MEDS ORDERED: MAGNESIUM/ALUMINUM HYDROXIDE/SIMETHICONE 30ML UDC PO ONE (22:15)
[2019-06-29] MEDS ORDERED: ASPIRIN 81MG TABLET PO ONE (22:15)
[2019-06-29 23:04] LABS: BASOPHILS % 2.2 % (0.0-2.0); EOSINOPHILS % 7.2 % (0.0-5.0); LYMPHOCYTES % 28.1 % (20.0-50.0); MEAN CORPUSCULAR HEMOGLOBIN 31.6 pg (28.0-32.0); MEAN CORPUSCULAR VOLUME 91.7 fL (81.0-99.0); MEAN PLATELET VOLUME 7.6 fl (7.4-10.4); NEUTROPHILS % 50.5 % (40.0-76.0); PLATELET 174 x1000/uL (130-400); RED BLOOD CELL COUNT 1.93 mill/uL (4.2-5.4); RED CELL DISTRIBUTION WIDTH 17.2 % (11.6-14.6)
[2019-06-29 23:07] LABS: HEMOGLOBIN. 6.1 g/dL (12.0-16.0)
[2019-06-29 23:08] LABS: HEMATOCRIT. 17.7 % (36.0-48.0)
[2019-06-29 23:10] LABS: CHLORIDE 107 mEq/L (98-107)
[2019-06-30] VITALS (9 sets, daily range): BP systolic 146–190; BP diastolic 91–120
[2019-06-30] MEDS ORDERED: DIPHENHYDRAMINE 50MG/ML VIAL IV PRN (04:37)
[2019-06-30] MEDS: MORPHINE SULFATE 2 MG/ML CPJ (NOT FOR IM USE) IV PRN ×2 (05:04→09:09)
[2019-06-30] MEDS: DIPHENHYDRAMINE 50MG/ML VIAL IV SCH ×2 (09:09→11:17)
[2019-06-30] MEDS ORDERED: ACETAMINOPHEN 325MG TABLET PO PRN (11:00)
[2019-06-30] MEDS ORDERED: ONDANSETRON HCL 4MG/2ML INJ IV PRN (11:00)
[2019-06-30] MEDS: LOSARTAN POTASSIUM 100 MG TABLET PO SCH ×2 (11:00→15:53)
[2019-06-30] MEDS: NIFEDIPINE XL 60MG TAB PO SCH ×2 (11:00→20:25)
[2019-06-30] MEDS ORDERED: HYDROCODONE/ACETAMINOPHEN 5/325MG TABLET PO PRN (11:00)
[2019-06-30] MEDS: ALPRAZOLAM 0.5 MG TABLET PO SCH ×2 (14:59→21:34)
[2019-06-30 15:21] LABS: HEMOGLOBIN 6.9 g/dL (12.0-16.0)
[2019-06-30] MEDS: CLONIDINE 0.1MG TABLET PO PRN ×2 (15:53→21:34)
[2019-06-30] MEDS: DIPHENHYDRAMINE 50MG/ML VIAL IV PRN (17:51)
[2019-06-30] MEDS ORDERED: PHEN100C4 PO (20:46)
[2019-06-30] MEDS: HYDRALAZINE HCL 100MG TABLET PO SCH (21:34)
[2019-06-30] MEDS: PHENYTOIN SODIUM EXTENDED 100MG CAPSULE PO SCH (21:34)
[2019-07-01] VITALS (7 sets, daily range): BP systolic 128–161; BP diastolic 85–101
[2019-07-01 00:02] LABS: HEMATOCRIT 24.3 % (36.0-48.0); HEMOGLOBIN 8.4 g/dL (12.0-16.0)
[2019-07-01 00:06] LABS: INR 1.1; PROTHROMBIN TIME 11.6 sec (9.6-11.0)
[2019-07-01] MEDS: PHENYTOIN SODIUM EXTENDED 100MG CAPSULE PO SCH ×3 (05:42→21:03)
[2019-07-01] MEDS: ALPRAZOLAM 0.5 MG TABLET PO SCH ×3 (05:42→21:03)
[2019-07-01] MEDS: HYDRALAZINE HCL 100MG TABLET PO SCH ×3 (05:42→21:04)
[2019-07-01] MEDS: OMEPRAZOLE 20MG CAPSULE EXTENDED RELEASE PO SCH (06:23)
[2019-07-01] MEDS: LEVOTHYROXINE SODIUM 50MCG TABLET PO SCH (06:23)
[2019-07-01 08:04] LABS: BASOPHILS % 1.4 % (0.0-2.0); EOSINOPHILS % 6.2 % (0.0-5.0); HEMATOCRIT. 23.9 % (36.0-48.0); HEMOGLOBIN. 8.2 g/dL (12.0-16.0); LYMPHOCYTES % 19.1 % (20.0-50.0); MEAN CORPUSCULAR HEMOGLOBIN 31.2 pg (28.0-32.0); MEAN PLATELET VOLUME 7.8 fl (7.4-10.4); NEUTROPHILS % 60.3 % (40.0-76.0); PLATELET 181 x1000/uL (130-400); RED BLOOD CELL COUNT 2.63 mill/uL (4.2-5.4); RED CELL DISTRIBUTION WIDTH 16.8 % (11.6-14.6)
[2019-07-01] MEDS: NIFEDIPINE XL 60MG TAB PO SCH ×2 (08:45→20:25)
[2019-07-01] MEDS ORDERED: SODIUM BICARBONATE 4% (2.4MEQ) 5ML VIAL IV ONE (11:05)
[2019-07-01] MEDS ORDERED: LIDOCAINE HCL 1% 20ML VIAL (Pyxis) INJ ONE (11:05)
[2019-07-01] MEDS: HYDROMORPHONE HCL/PF 2MG/ML CPJ IV PRN ×2 (14:12→20:26)
[2019-07-01] MEDS: DIPHENHYDRAMINE 50MG/ML VIAL IV PRN ×2 (15:39→23:34)
[2019-07-01] MEDS ORDERED: ALPR2TAB2 MT (15:48)
[2019-07-01] MEDS ORDERED: HYDR100T26 MT (15:48)
[2019-07-01] MEDS ORDERED: LEVO50TA MT (15:48)
[2019-07-01] MEDS ORDERED: LOSA100T32 MT (15:48)
[2019-07-01] MEDS ORDERED: NIFE-32 MT (15:48)
[2019-07-01] MEDS: CLONIDINE 0.1MG TABLET PO PRN (23:46)
[2019-07-02] MEDS: HYDROMORPHONE HCL/PF 2MG/ML CPJ IV PRN ×5 (02:27→22:24)
[2019-07-02 04:00] VITALS: BP 138/91
[2019-07-02] MEDS: HYDRALAZINE HCL 100MG TABLET PO SCH ×3 (05:09→21:09)
[2019-07-02] MEDS: ALPRAZOLAM 0.5 MG TABLET PO SCH ×2 (05:09→21:08)
[2019-07-02] MEDS: PHENYTOIN SODIUM EXTENDED 100MG CAPSULE PO SCH ×3 (05:09→21:08)
[2019-07-02] MEDS: LEVOTHYROXINE SODIUM 50MCG TABLET PO SCH (06:27)
[2019-07-02] MEDS: OMEPRAZOLE 20MG CAPSULE EXTENDED RELEASE PO SCH (06:27)
[2019-07-02 07:10] LABS: BASOPHILS % 1.7 % (0.0-2.0); EOSINOPHILS % 7.7 % (0.0-5.0); HEMATOCRIT. 26.1 % (36.0-48.0); HEMOGLOBIN. 8.8 g/dL (12.0-16.0); LYMPHOCYTES % 20.4 % (20.0-50.0); MEAN CORPUSCULAR HEMOGLOBIN 30.9 pg (28.0-32.0); MEAN CORPUSCULAR VOLUME 91.3 fL (81.0-99.0); MEAN PLATELET VOLUME 8.1 fl (7.4-10.4); MONOCYTES % 12.4 % (2.0-8.0); NEUTROPHILS % 57.8 % (40.0-76.0); PLATELET 219 x1000/uL (130-400); RED BLOOD CELL COUNT 2.85 mill/uL (4.2-5.4); RED CELL DISTRIBUTION WIDTH 16.6 % (11.6-14.6)
[2019-07-02] MEDS: DIPHENHYDRAMINE 50MG/ML VIAL IV PRN ×2 (07:37→17:23)
[2019-07-02 08:12] VITALS: BP 139/96
[2019-07-02] MEDS: LOSARTAN POTASSIUM 100 MG TABLET PO SCH (08:53)
[2019-07-02] MEDS: NIFEDIPINE XL 60MG TAB PO SCH ×2 (08:53→21:08)
[2019-07-02 11:40] VITALS: BP_SYST 150; BP_SYST 161; BP_DIAS 98
[2019-07-02] MEDS: CLONIDINE 0.1MG TABLET PO PRN (11:50)
[2019-07-02] MEDS ORDERED: ALPRAZOLAM 0.25 MG TABLET PO SCH (13:54)
[2019-07-02 16:00] VITALS: BP 132/85
[2019-07-02 20:00] VITALS: BP 148/98
[2019-07-03] VITALS: BP_SYST 156; BP_SYST 171; BP_DIAS 109; BP_DIAS 99
[2019-07-03] MEDS: DIPHENHYDRAMINE 50MG/ML VIAL IV PRN ×3 (01:44→21:50)
[2019-07-03 04:00] VITALS: BP 142/97
[2019-07-03] MEDS: HYDROMORPHONE HCL/PF 2MG/ML CPJ IV PRN ×4 (04:26→23:08)
[2019-07-03] MEDS: PHENYTOIN SODIUM EXTENDED 100MG CAPSULE PO SCH ×3 (06:23→21:49)
[2019-07-03] MEDS: OMEPRAZOLE 20MG CAPSULE EXTENDED RELEASE PO SCH (06:23)
[2019-07-03] MEDS: LEVOTHYROXINE SODIUM 50MCG TABLET PO SCH (06:27)
[2019-07-03] MEDS: HYDRALAZINE HCL 100MG TABLET PO SCH ×3 (06:27→21:49)
[2019-07-03 07:01] LABS: HEMATOCRIT. 21.3 % (36.0-48.0); HEMOGLOBIN. 7.4 g/dL (12.0-16.0); MEAN CORPUSCULAR HEMOGLOBIN 31.5 pg (28.0-32.0); MEAN PLATELET VOLUME 7.9 fl (7.4-10.4); PLATELET 197 x1000/uL (130-400); RED BLOOD CELL COUNT 2.34 mill/uL (4.2-5.4); RED CELL DISTRIBUTION WIDTH 16.4 % (11.6-14.6)
[2019-07-03 08:00] VITALS: BP 150/100
[2019-07-03] MEDS ORDERED: DIPHENHYDRAMINE 50MG/ML VIAL IV NR (08:45)
[2019-07-03] MEDS: ALPRAZOLAM 0.5 MG TABLET PO SCH ×3 (08:48→21:50)
[2019-07-03] MEDS: LOSARTAN POTASSIUM 100 MG TABLET PO SCH (08:48)
[2019-07-03] MEDS: NIFEDIPINE XL 60MG TAB PO SCH ×2 (08:48→21:49)
[2019-07-03] MEDS ORDERED: HEPARIN SODIUM 1,000 UNIT/1ML VIAL IV NR (11:24)
[2019-07-03 12:00] VITALS: BP 144/93
[2019-07-03] MEDS ORDERED: NITROGLYCERIN 0.4MG TABLET SL SL PRN (13:45)
[2019-07-03 16:00] VITALS: BP 159/97
[2019-07-03 18:00] LABS: PLATELET ESTIMATE NORMAL
[2019-07-03 20:00] VITALS: BP 161/99
[2019-07-04 04:00] VITALS: BP 180/101
[2019-07-04] MEDS: ALPRAZOLAM 0.5 MG TABLET PO SCH (05:58)
[2019-07-04] MEDS: CLONIDINE 0.1MG TABLET PO PRN (05:58)
[2019-07-04] MEDS: PHENYTOIN SODIUM EXTENDED 100MG CAPSULE PO SCH (05:58)
[2019-07-04] MEDS: OMEPRAZOLE 20MG CAPSULE EXTENDED RELEASE PO SCH (05:59)
[2019-07-04] MEDS: HYDROMORPHONE HCL/PF 2MG/ML CPJ IV PRN (05:59)
[2019-07-04] MEDS: DIPHENHYDRAMINE 50MG/ML VIAL IV PRN (05:59)
[2019-07-04] MEDS: HYDRALAZINE HCL 100MG TABLET PO SCH (06:08)
[2019-07-04] MEDS: LEVOTHYROXINE SODIUM 50MCG TABLET PO SCH (06:08)
[2019-07-04 08:00] VITALS: BP 139/89
[2019-07-04] MEDS: NIFEDIPINE XL 60MG TAB PO SCH (08:16)
[2019-07-04] MEDS: LOSARTAN POTASSIUM 100 MG TABLET PO SCH (08:16)
[2019-07-04 09:25] VITALS: BP 139/89
== END 2019-07-04 09:30 | disposition home or self-care (01) | DRG 311 ==
LOC: ER 18:37 → EDUNIT# 18:37 → 6WST 06-30 00:52 → ENRESERV 06-30 02:23 → ER 06-30 09:58 → 6WST 07-01 09:11
PROVIDERS: ADMIT Internal Medicine; ATTEND Internal Medicine
PROC: 30233N1 Transfusion of Nonautologous Red Blood Cells into Peripheral Vein, Percutaneous Approach (ICD-10-PCS; principal; 2019-06-30)
PROC: 5A1D70Z Performance of Urinary Filtration, Intermittent, Less than 6 Hours Per Day (ICD-10-PCS; 2019-06-30)
PROC: 5A1D70Z Performance of Urinary Filtration, Intermittent, Less than 6 Hours Per Day (ICD-10-PCS; 2019-06-30)
PROC: 5A1D70Z Performance of Urinary Filtration, Intermittent, Less than 6 Hours Per Day (ICD-10-PCS; 2019-06-30)
PROC: 5A1D70Z Performance of Urinary Filtration, Intermittent, Less than 6 Hours Per Day (ICD-10-PCS; 2019-06-30)
PROC: 02HV33Z Insertion of Infusion Device into Superior Vena Cava, Percutaneous Approach (ICD-10-PCS; 2019-07-01)
PROC: B5181ZA Fluoroscopy of Superior Vena Cava using Low Osmolar Contrast, Guidance (ICD-10-PCS; 2019-07-01)
PROC: B548ZZA Ultrasonography of Superior Vena Cava, Guidance (ICD-10-PCS; 2019-07-01)
DX: I24.8 Other forms of acute ischemic heart disease (principal); N18.6 End stage renal disease; I13.2 Hypertensive heart and chronic kidney disease with heart failure and with stage 5 chronic kidney disease, or end stage renal disease; E44.1 Mild protein-calorie malnutrition; R18.8 Other ascites; E03.9 Hypothyroidism, unspecified; E78.00 Pure hypercholesterolemia, unspecified; E78.5 Hyperlipidemia, unspecified; F41.9 Anxiety disorder, unspecified; G40.909 Epilepsy, unspecified, not intractable, without status epilepticus; K74.60 Unspecified cirrhosis of liver; R74.0 Nonspecific elevation of levels of transaminase and lactic acid dehydrogenase [LDH]; K72.90 Hepatic failure, unspecified without coma; D64.9 Anemia, unspecified; K29.70 Gastritis, unspecified, without bleeding; F10.10 Alcohol abuse, uncomplicated; I50.9 Heart failure, unspecified; Z76.5 Malingerer [conscious simulation]; Z91.19 Patient's noncompliance with other medical treatment and regimen; Z99.2 Dependence on renal dialysis; Z65.8 Other specified problems related to psychosocial circumstances; Z79.899 Other long term (current) drug therapy; Z68.21 Body mass index [BMI] 21.0-21.9, adult
CPT/HCPCS: 36415; 36573; 71045; 76937; 80048; 80053; 83880; 84484; 85014; 85018; 85025; 85049; 85384; 86850; 86900; 86920; 93005; 93970; 96374; 96375; 99291; C1725; C1769; C1893; J1170; J1200; J1644; J2270; J3490; J7040; P9016

== ENCOUNTER 2019-07-16 14:57 | Inpatient (IN) | payer MEDICARE, MEDICAID ==
[~2019-07-16] VITALS: Ht 170.2 cm; Wt 59.4 kg
[~2019-07-16 14:57] MED LIST changes: -AMLO10TA80 PO; +HYDR100T26 MT; +LEVO50TA MT; +LOSA100T32 MT; +NIFE-32 MT
[2019-07-16 23:28] LABS: BASOPHILS % 1.3 % (0.0-2.0); LYMPHOCYTES % 19.5 % (20.0-50.0); MEAN CORPUSCULAR HEMOGLOBIN 31.4 pg (28.0-32.0); MEAN CORPUSCULAR VOLUME 94.4 fL (81.0-99.0); MEAN PLATELET VOLUME 7.7 fl (7.4-10.4); MONOCYTES % 10.5 % (2.0-8.0); NEUTROPHILS % 65.7 % (40.0-76.0); PLATELET 157 x1000/uL (130-400); RED BLOOD CELL COUNT 2.18 mill/uL (4.2-5.4); RED CELL DISTRIBUTION WIDTH 16.4 % (11.6-14.6)
[2019-07-16 23:29] LABS: CHLORIDE 105 mEq/L (98-107)
[2019-07-16 23:35] LABS: PHOSPHORUS 6.5 mg/dL (2.5-4.9)
[2019-07-16 23:38] LABS: HEMATOCRIT. 20.6 % (36.0-48.0); HEMOGLOBIN. 6.9 g/dL (12.0-16.0)
[2019-07-17] MEDS ORDERED: MAGNESIUM/ALUMINUM HYDROXIDE/SIMETHICONE 30ML UDC PO PRN (09:00)
[2019-07-17] MEDS ORDERED: ACETAMINOPHEN 650MG SUPP PR PRN (09:00)
[2019-07-17] MEDS ORDERED: ACETAMINOPHEN 650MG/20.3ML UDC GT PRN (09:00)
[2019-07-17] MEDS ORDERED: NA PHOS,M-B/NA PHOS,DI-BA ENEMA 118ML PR PRN (09:00)
[2019-07-17] MEDS ORDERED: HYDROCODONE/ACETAMINOPHEN 5/325MG TABLET PO PRN (09:00)
[2019-07-17] MEDS: DIPHENHYDRAMINE 50MG/ML VIAL IV PRN ×3 (09:00→23:34)
[2019-07-17] MEDS ORDERED: DOCUSATE SODIUM 100MG CAPSULE PO PRN (09:00)
[2019-07-17] MEDS ORDERED: IPRATROPIUM/ALBUTEROL 0.5-3(2.5)MG/3ML NEB HHN PRN (09:00)
[2019-07-17 09:56] LABS: BASOPHILS % 0.9 % (0.0-2.0); HEMATOCRIT. 22.8 % (36.0-48.0); HEMOGLOBIN. 7.7 g/dL (12.0-16.0); LYMPHOCYTES % 16.5 % (20.0-50.0); MEAN CORPUSCULAR VOLUME 91.7 fL (81.0-99.0); MEAN PLATELET VOLUME 7.6 fl (7.4-10.4); MONOCYTES % 10.6 % (2.0-8.0); PLATELET 119 x1000/uL (130-400); RED BLOOD CELL COUNT 2.49 mill/uL (4.2-5.4); RED CELL DISTRIBUTION WIDTH 16.9 % (11.6-14.6)
[2019-07-17 10:06] LABS: CHLORIDE 108 mEq/L (98-107)
[2019-07-17] MEDS: SODIUM CHLORIDE 0.9% INJ 3ML FLUSH IVF SCH ×2 (14:00→20:44)
[2019-07-17] MEDS: ALPRAZOLAM 0.5 MG TABLET PO PRN ×2 (14:14→22:01)
[2019-07-17 15:15] VITALS: BP 166/100
[2019-07-17] MEDS: HYDROCODONE/ACETAMINOPHEN 10/325MG TABLET PO PRN (16:05)
[2019-07-17] MEDS ORDERED: DIPHENHYDRAMINE 50MG/ML VIAL IV NR (18:30)
[2019-07-17 20:00] VITALS: BP 135/109
[2019-07-17] MEDS: CLONIDINE 0.1MG TABLET PO PRN (20:18)
[2019-07-18] VITALS (7 sets, daily range): BP systolic 141–202; BP diastolic 91–113
[2019-07-18] MEDS: HYDROCODONE/ACETAMINOPHEN 10/325MG TABLET PO PRN ×3 (00:29→16:43)
[2019-07-18] MEDS: CLONIDINE 0.1MG TABLET PO PRN ×2 (04:04→16:48)
[2019-07-18] MEDS: DIPHENHYDRAMINE 50MG/ML VIAL IV PRN ×2 (04:05→09:36)
[2019-07-18] MEDS: SODIUM CHLORIDE 0.9% INJ 3ML FLUSH IVF SCH ×2 (05:13→14:41)
[2019-07-18] MEDS: ALPRAZOLAM 0.5 MG TABLET PO PRN ×2 (06:56→19:14)
[2019-07-18 07:02] LABS: HEMATOCRIT. 22.5 % (36.0-48.0); HEMOGLOBIN. 7.7 g/dL (12.0-16.0); MEAN CORPUSCULAR VOLUME 90.7 fL (81.0-99.0); MEAN PLATELET VOLUME 7.8 fl (7.4-10.4); PLATELET 110 x1000/uL (130-400); RED BLOOD CELL COUNT 2.48 mill/uL (4.2-5.4); RED CELL DISTRIBUTION WIDTH 17.2 % (11.6-14.6)
[2019-07-18 08:21] LABS: CHLORIDE 109 mEq/L (98-107)
[2019-07-18 08:35] LABS: LDL CHOLESTEROL 92 mg/dL (5-100)
[2019-07-18 08:37] LABS: HDL CHOLESTEROL 53 mg/dL (40-59)
[2019-07-18] MEDS ORDERED: POTASSIUM CHLORIDE 20MEQ TABLET SR PO NR (13:00)
[2019-07-18 14:17] LABS: PLATELET ESTIMATE SLIGHTLY DECREASED
[2019-07-18] MEDS ORDERED: DIPHENHYDRAMINE 50MG/ML VIAL IV SCH (14:30)
[2019-10-10] MEDS ORDERED: NIFE-32 MT (12:50)
[2019-10-10] MEDS ORDERED: ALPR2TAB2 MT (12:50)
[2019-10-10] MEDS ORDERED: LEVO100T9 PO (12:50)
[2019-10-10] MEDS ORDERED: OMEP20CA14 PO (12:50)
[2019-10-10] MEDS ORDERED: PHEN100C4 PO (12:50)
[2019-10-10] MEDS ORDERED: CALC667C PO (12:50)
[2019-10-10] MEDS ORDERED: COR12 PO (12:50)
[2019-10-10] MEDS ORDERED: HYDR100T26 PO (12:50)
[2019-11-11] MEDS ORDERED: ALPR2TAB2 MT (14:27)
[2019-11-12] MEDS ORDERED: ALPR2TAB2 MT (13:40)
== END 2019-07-18 20:20 | disposition left against medical advice (07) | DRG 291 ==
LOC: ER 15:15 → EDBEDREQ 07-17 01:29 → ENRESERV 07-17 13:52 → 8WST 07-17 15:08
PROVIDERS: ADMIT Family Medicine; ATTEND Family Medicine
PROC: 30233N1 Transfusion of Nonautologous Red Blood Cells into Peripheral Vein, Percutaneous Approach (ICD-10-PCS; principal; 2019-07-17)
PROC: 5A1D70Z Performance of Urinary Filtration, Intermittent, Less than 6 Hours Per Day (ICD-10-PCS; 2019-07-17)
PROC: 5A1D70Z Performance of Urinary Filtration, Intermittent, Less than 6 Hours Per Day (ICD-10-PCS; 2019-07-18)
DX: I13.2 Hypertensive heart and chronic kidney disease with heart failure and with stage 5 chronic kidney disease, or end stage renal disease (principal); N18.6 End stage renal disease; N17.9 Acute kidney failure, unspecified; N25.81 Secondary hyperparathyroidism of renal origin; D64.9 Anemia, unspecified; E78.00 Pure hypercholesterolemia, unspecified; F10.20 Alcohol dependence, uncomplicated; G40.909 Epilepsy, unspecified, not intractable, without status epilepticus; E05.90 Thyrotoxicosis, unspecified without thyrotoxic crisis or storm; I50.9 Heart failure, unspecified; K21.9 Gastro-esophageal reflux disease without esophagitis; Z91.19 Patient's noncompliance with other medical treatment and regimen; Z98.891 History of uterine scar from previous surgery; Z99.2 Dependence on renal dialysis; Z91.018 Allergy to other foods; Z79.01 Long term (current) use of anticoagulants; Z79.899 Other long term (current) drug therapy
CPT/HCPCS: 36415; 71045; 80053; 80061; 84100; 84484; 85025; 86850; 86900; 86920; 93005; 99285; J1200; P9016

== ENCOUNTER 2019-07-27 19:48 | Inpatient (IN) | payer MEDICARE, MEDICAID ==
[~2019-07-27] VITALS: Ht 170.2 cm; Wt 59.4 kg
[2019-07-27] MEDS ORDERED: ONDANSETRON HCL 4MG/2ML INJ IV STA (23:07)
[2019-07-27] MEDS ORDERED: MORPHINE SULFATE 4 MG/ML CPJ (NOT FOR IM USE) IV STA (23:07)
[2019-07-27] MEDS ORDERED: DIPHENHYDRAMINE 50MG/ML VIAL IV ONE (23:15)
[2019-07-28 00:31] LABS: CHLORIDE 105 mEq/L (98-107)
[2019-07-28 00:33] LABS: BASOPHILS % 1.1 % (0.0-2.0); EOSINOPHILS % 4.1 % (0.0-5.0); LYMPHOCYTES % 15.6 % (20.0-50.0); MEAN CORPUSCULAR HEMOGLOBIN 31.4 pg (28.0-32.0); MEAN CORPUSCULAR VOLUME 91.3 fL (81.0-99.0); MEAN PLATELET VOLUME 7.8 fl (7.4-10.4); MONOCYTES % 12.3 % (2.0-8.0); NEUTROPHILS % 66.9 % (40.0-76.0); PLATELET 176 x1000/uL (130-400); RED BLOOD CELL COUNT 2.01 mill/uL (4.2-5.4); RED CELL DISTRIBUTION WIDTH 17.7 % (11.6-14.6)
[2019-07-28 00:35] LABS: ETHANOL BLOOD 99 mg/dL
[2019-07-28 00:46] LABS: HEMATOCRIT. 18.4 % (36.0-48.0); HEMOGLOBIN. 6.3 g/dL (12.0-16.0)
[2019-07-28] MEDS ORDERED: LORAZEPAM 2MG/ML CPJ IV ONE ×2 (01:00→02:30)
[2019-07-28] MEDS ORDERED: DIPHENHYDRAMINE 50MG/ML VIAL IV ONE (02:30)
[2019-07-28] MEDS ORDERED: ONDANSETRON HCL 4MG/2ML INJ IV ONE (02:30)
[2019-07-28] MEDS ORDERED: MORPHINE SULFATE 4 MG/ML CPJ (NOT FOR IM USE) IV ONE (02:30)
[2019-07-28] MEDS ORDERED: ONDANSETRON HCL 4MG/2ML INJ IV PRN (07:45)
[2019-07-28] MEDS ORDERED: ACETAMINOPHEN 325MG TABLET PO PRN (07:45)
[2019-07-28] MEDS ORDERED: DIPHENHYDRAMINE 50MG/ML VIAL IM PRN (08:30)
[2019-07-28] MEDS: LEVOTHYROXINE SODIUM 75MCG TABLET PO SCH (08:58)
[2019-07-28] MEDS: ALPRAZOLAM 0.5 MG TABLET PO PRN ×2 (09:05→23:11)
[2019-07-28] MEDS: OMEPRAZOLE 20MG CAPSULE EXTENDED RELEASE PO SCH (09:05)
[2019-07-28] MEDS: LOSARTAN POTASSIUM 50 MG TABLET PO SCH ×2 (09:06→09:14)
[2019-07-28] MEDS: HYDROMORPHONE HCL/PF 2MG/ML CPJ IV PRN ×3 (09:35→22:53)
[2019-07-28 09:57] LABS: HEMATOCRIT 23.3 % (36.0-48.0)
[2019-07-28] MEDS ORDERED: MULTIVITAMINS,THER W-MINERALS TABLET PO NR (10:45)
[2019-07-28] MEDS ORDERED: FOLIC ACID 1MG TABLET PO NR (10:45)
[2019-07-28] MEDS ORDERED: THIAMINE HCL 100MG TABLET PO NR (10:45)
[2019-07-28 17:30] VITALS: BP 145/89
[2019-07-28 17:34] VITALS: BP 145/89
[2019-07-28 20:00] VITALS: BP 143/96
[2019-07-28] MEDS ORDERED: DIPHENHYDRAMINE 50MG/ML VIAL IV SCH (20:15)
[2019-07-28] MEDS: PHENYTOIN SODIUM EXTENDED 100MG CAPSULE PO SCH (21:37)
[2019-07-28] MEDS: CLONIDINE 0.1MG TABLET PO PRN (23:48)
[2019-07-29] VITALS: BP 168/104
[2019-07-29 04:00] VITALS: BP 162/98
[2019-07-29] MEDS: HYDROMORPHONE HCL/PF 2MG/ML CPJ IV PRN ×3 (05:32→20:15)
[2019-07-29] MEDS: CLONIDINE 0.1MG TABLET PO PRN (05:32)
[2019-07-29 08:00] VITALS: BP 148/85
[2019-07-29] MEDS: FOLIC ACID 1MG TABLET PO SCH (09:47)
[2019-07-29] MEDS: MULTIVITAMINS,THER W-MINERALS TABLET PO SCH (09:47)
[2019-07-29] MEDS: OMEPRAZOLE 20MG CAPSULE EXTENDED RELEASE PO SCH (09:48)
[2019-07-29] MEDS: LEVOTHYROXINE SODIUM 75MCG TABLET PO SCH (09:48)
[2019-07-29] MEDS: THIAMINE HCL 100MG TABLET PO SCH (09:48)
[2019-07-29] MEDS: LOSARTAN POTASSIUM 50 MG TABLET PO SCH (09:48)
[2019-07-29] MEDS: ALPRAZOLAM 0.5 MG TABLET PO PRN ×2 (09:49→22:26)
[2019-07-29] MEDS: DIPHENHYDRAMINE 50MG/ML VIAL IV PRN ×2 (10:28→16:42)
[2019-07-29 12:00] VITALS: BP 138/77
[2019-07-29] MEDS ORDERED: ALPR2TAB2 MT (14:04)
[2019-07-29 16:00] VITALS: BP 130/63
[2019-07-29 16:28] LABS: BASOPHILS % 0.6 % (0.0-2.0); EOSINOPHILS % 3.4 % (0.0-5.0); HEMOGLOBIN. 7.4 g/dL (12.0-16.0); LYMPHOCYTES % 11.5 % (20.0-50.0); MEAN CORPUSCULAR HEMOGLOBIN 31.1 pg (28.0-32.0); MEAN CORPUSCULAR VOLUME 91.7 fL (81.0-99.0); MEAN PLATELET VOLUME 7.7 fl (7.4-10.4); MONOCYTES % 11.2 % (2.0-8.0); NEUTROPHILS % 73.3 % (40.0-76.0); PLATELET 163 x1000/uL (130-400); RED CELL DISTRIBUTION WIDTH 17.8 % (11.6-14.6)
[2019-07-29 20:00] VITALS: BP 124/81
[2019-07-29] MEDS: PHENYTOIN SODIUM EXTENDED 100MG CAPSULE PO SCH (20:15)
[2019-07-30] VITALS (7 sets, daily range): BP systolic 99–166; BP diastolic 62–103
[2019-07-30] MEDS: DIPHENHYDRAMINE 50MG/ML VIAL IV PRN ×4 (00:30→21:48)
[2019-07-30] MEDS: HYDROMORPHONE HCL/PF 2MG/ML CPJ IV PRN ×4 (02:41→22:05)
[2019-07-30] MEDS: ALPRAZOLAM 0.5 MG TABLET PO PRN ×3 (06:49→23:48)
[2019-07-30] MEDS: MULTIVITAMINS,THER W-MINERALS TABLET PO SCH (08:42)
[2019-07-30] MEDS: FAMOTIDINE 20MG TABLET PO SCH (08:42)
[2019-07-30] MEDS: FOLIC ACID 1MG TABLET PO SCH (08:42)
[2019-07-30] MEDS: THIAMINE HCL 100MG TABLET PO SCH (08:42)
[2019-07-30] MEDS: LEVOTHYROXINE SODIUM 75MCG TABLET PO SCH (08:46)
[2019-07-30] MEDS: LOSARTAN POTASSIUM 50 MG TABLET PO SCH (09:00)
[2019-07-30 11:15] LABS: BASOPHILS % 0.8 % (0.0-2.0); EOSINOPHILS % 2.1 % (0.0-5.0); LYMPHOCYTES % 12.7 % (20.0-50.0); MEAN CORPUSCULAR HEMOGLOBIN 30.6 pg (28.0-32.0); MEAN CORPUSCULAR VOLUME 90.2 fL (81.0-99.0); MEAN PLATELET VOLUME 7.7 fl (7.4-10.4); MONOCYTES % 10.1 % (2.0-8.0); NEUTROPHILS % 74.3 % (40.0-76.0); PLATELET 162 x1000/uL (130-400); RED BLOOD CELL COUNT 2.15 mill/uL (4.2-5.4); RED CELL DISTRIBUTION WIDTH 17.6 % (11.6-14.6)
[2019-07-30 11:22] LABS: HEMATOCRIT. 19.4 % (36.0-48.0); HEMOGLOBIN. 6.6 g/dL (12.0-16.0)
[2019-07-30] MEDS: CLONIDINE 0.1MG TABLET PO PRN (13:32)
[2019-07-30] MEDS ORDERED: CLONIDINE 0.2MG TABLET PO PRN (19:45)
[2019-07-30] MEDS: PHENYTOIN SODIUM EXTENDED 100MG CAPSULE PO SCH (21:47)
[2019-07-31] VITALS: BP 144/91
[2019-07-31 04:00] VITALS: BP 128/90
[2019-07-31] MEDS: DIPHENHYDRAMINE 50MG/ML VIAL IV PRN (05:56)
[2019-07-31] MEDS: HYDROMORPHONE HCL/PF 2MG/ML CPJ IV PRN (06:04)
[2019-07-31 06:51] LABS: BASOPHILS % 1.3 % (0.0-2.0); EOSINOPHILS % 4.4 % (0.0-5.0); HEMOGLOBIN. 7.2 g/dL (12.0-16.0); LYMPHOCYTES % 19.9 % (20.0-50.0); MEAN CORPUSCULAR HEMOGLOBIN 30.5 pg (28.0-32.0); MEAN CORPUSCULAR VOLUME 88.8 fL (81.0-99.0); MONOCYTES % 14.1 % (2.0-8.0); NEUTROPHILS % 60.3 % (40.0-76.0); PLATELET 163 x1000/uL (130-400); RED BLOOD CELL COUNT 2.35 mill/uL (4.2-5.4); RED CELL DISTRIBUTION WIDTH 19.1 % (11.6-14.6)
[2019-07-31 08:00] VITALS: BP 143/71
[2019-07-31 08:02] LABS: HEMATOCRIT. 20.9 % (36.0-48.0)
[2019-07-31] MEDS: THIAMINE HCL 100MG TABLET PO SCH (08:44)
[2019-07-31] MEDS: FAMOTIDINE 20MG TABLET PO SCH (08:44)
[2019-07-31] MEDS: LEVOTHYROXINE SODIUM 75MCG TABLET PO SCH (08:44)
[2019-07-31] MEDS: MULTIVITAMINS,THER W-MINERALS TABLET PO SCH (08:45)
[2019-07-31] MEDS: LOSARTAN POTASSIUM 50 MG TABLET PO SCH (08:45)
[2019-07-31] MEDS: FOLIC ACID 1MG TABLET PO SCH (08:45)
[2019-07-31] MEDS: ALPRAZOLAM 0.5 MG TABLET PO PRN (08:47)
[2019-07-31 12:00] VITALS: BP 153/98
[2019-07-31 12:20] VITALS: BP 143/71
== END 2019-07-31 12:45 | disposition home or self-care (01) | DRG 640 ==
LOC: ER 19:48 → 7WST 07-28 01:22 → EDBEDREQ 07-28 01:28 → EDBEDREQTM 07-28 01:28 → EDBEDREQDT 07-28 01:28 → EDBEDREQTM 07-28 02:15 → EDBEDREQ 07-28 02:15 → ENRESERV 07-28 16:10
PROVIDERS: ADMIT Internal Medicine; ATTEND Internal Medicine
PROC: 30233N1 Transfusion of Nonautologous Red Blood Cells into Peripheral Vein, Percutaneous Approach (ICD-10-PCS; principal; 2019-07-28)
PROC: 5A1D70Z Performance of Urinary Filtration, Intermittent, Less than 6 Hours Per Day (ICD-10-PCS; 2019-07-28)
PROC: 5A1D70Z Performance of Urinary Filtration, Intermittent, Less than 6 Hours Per Day (ICD-10-PCS; 2019-07-29)
DX: E87.70 Fluid overload, unspecified (principal); N18.6 End stage renal disease; I24.8 Other forms of acute ischemic heart disease; I13.2 Hypertensive heart and chronic kidney disease with heart failure and with stage 5 chronic kidney disease, or end stage renal disease; R18.8 Other ascites; D63.8 Anemia in other chronic diseases classified elsewhere; E03.9 Hypothyroidism, unspecified; E78.00 Pure hypercholesterolemia, unspecified; E83.51 Hypocalcemia; E87.5 Hyperkalemia; F10.10 Alcohol abuse, uncomplicated; F41.9 Anxiety disorder, unspecified; G40.909 Epilepsy, unspecified, not intractable, without status epilepticus; K29.70 Gastritis, unspecified, without bleeding; I50.9 Heart failure, unspecified; I27.20 Pulmonary hypertension, unspecified; K74.60 Unspecified cirrhosis of liver; Z98.891 History of uterine scar from previous surgery; Z99.2 Dependence on renal dialysis; Z79.899 Other long term (current) drug therapy; Z91.018 Allergy to other foods
CPT/HCPCS: 36415; 71045; 80048; 80053; 80320; 83880; 84145; 84484; 85014; 85018; 85025; 86850; 86900; 86920; 93005; 93306; 99285; J1170; J1200; J2060; J2270; J2405; P9016; G0480

== ENCOUNTER 2019-08-06 22:32 | Emergency (ER) | payer MEDICARE, MEDICAID ==
[~2019-08-06] VITALS: Ht 160 cm; Wt 53.0 kg
[2019-08-07] MEDS ORDERED: ASPIRIN 81MG TABLET PO ONE (00:45)
[2019-08-07] MEDS ORDERED: NITROGLYCERIN 0.4MG TABLET SL SL PRN (00:45)
[2019-08-07 01:14] LABS: BASOPHILS % 1.9 % (0.0-2.0); EOSINOPHILS % 6.4 % (0.0-5.0); HEMOGLOBIN. 7.7 g/dL (12.0-16.0); LYMPHOCYTES % 29.5 % (20.0-50.0); MEAN CORPUSCULAR HEMOGLOBIN 30.8 pg (28.0-32.0); MEAN CORPUSCULAR VOLUME 88.3 fL (81.0-99.0); MEAN PLATELET VOLUME 6.8 fl (7.4-10.4); MONOCYTES % 12.6 % (2.0-8.0); NEUTROPHILS % 49.6 % (40.0-76.0); PLATELET 207 x1000/uL (130-400); RED CELL DISTRIBUTION WIDTH 18.7 % (11.6-14.6)
[2019-08-07 01:20] LABS: CHLORIDE 101 mEq/L (98-107)
[2019-08-07 01:25] LABS: ETHANOL BLOOD 232 mg/dL
[2019-08-07 06:00] VITALS: BP 132/82
== END 2019-08-07 06:01 | disposition home or self-care (01) ==
LOC: ER 22:32
DX: R07.89 Other chest pain (principal); I13.2 Hypertensive heart and chronic kidney disease with heart failure and with stage 5 chronic kidney disease, or end stage renal disease; N18.6 End stage renal disease; I50.9 Heart failure, unspecified; E78.00 Pure hypercholesterolemia, unspecified; E05.90 Thyrotoxicosis, unspecified without thyrotoxic crisis or storm; F10.129 Alcohol abuse with intoxication, unspecified; Z79.899 Other long term (current) drug therapy; Z99.2 Dependence on renal dialysis; Z91.018 Allergy to other foods; Y90.7 Blood alcohol level of 200-239 mg/100 ml
CPT/HCPCS: 36415; 71045; 80053; 80320; 83880; 84484; 85025; 93005; 99285; G0480

== ENCOUNTER 2019-08-13 16:37 | Inpatient (IN) | payer MEDICARE, MEDICAID ==
[~2019-08-13] VITALS: Ht 170.2 cm; Wt 59.9 kg
[2019-08-13 18:42] LABS: BASOPHILS % 1.2 % (0.0-2.0); EOSINOPHILS % 4.4 % (0.0-5.0); LYMPHOCYTES % 22.9 % (20.0-50.0); MEAN CORPUSCULAR HEMOGLOBIN 30.2 pg (28.0-32.0); MEAN CORPUSCULAR VOLUME 88.3 fL (81.0-99.0); MONOCYTES % 13.7 % (2.0-8.0); NEUTROPHILS % 57.8 % (40.0-76.0); PLATELET 167 x1000/uL (130-400); RED BLOOD CELL COUNT 2.12 mill/uL (4.2-5.4); RED CELL DISTRIBUTION WIDTH 18.1 % (11.6-14.6)
[2019-08-13 18:46] LABS: CHLORIDE 103 mEq/L (98-107)
[2019-08-13 18:48] LABS: HEMATOCRIT. 18.7 % (36.0-48.0); HEMOGLOBIN. 6.4 g/dL (12.0-16.0)
[2019-08-13] MEDS ORDERED: MORPHINE SULFATE 2 MG/ML CPJ (NOT FOR IM USE) IV ONE ×2 (19:45→22:30)
[2019-08-13] MEDS ORDERED: DIPHENHYDRAMINE 25MG CAPSULE PO ONE (19:45)
[2019-08-13] MEDS ORDERED: DIPHENHYDRAMINE 50MG/ML VIAL IV ONE (20:45)
[2019-08-14] MEDS ORDERED: NITROGLYCERIN 0.4MG TABLET SL SL PRN (02:00)
[2019-08-14] MEDS ORDERED: ACETAMINOPHEN 325MG TABLET PO PRN ×2 (02:00)
[2019-08-14] MEDS ORDERED: DIPHENHYDRAMINE 50MG/ML VIAL IV PRN (02:00)
[2019-08-14] MEDS ORDERED: CLONIDINE 0.1MG TABLET PO PRN (02:00)
[2019-08-14] MEDS ORDERED: ONDANSETRON HCL 4MG/2ML INJ IV PRN (02:00)
[2019-08-14] MEDS ORDERED: DOCUSATE SODIUM 100MG CAPSULE PO PRN (02:00)
[2019-08-14] MEDS ORDERED: IPRATROPIUM/ALBUTEROL 0.5-3(2.5)MG/3ML NEB NEB PRN (02:00)
[2019-08-14] MEDS ORDERED: MAGNESIUM/ALUMINUM HYDROXIDE/SIMETHICONE 30ML UDC PO PRN (02:00)
[2019-08-14] MEDS ORDERED: GUAIFENESIN 200MG/10ML SUGAR FREE UDC PO PRN (02:00)
[2019-08-14] MEDS: LORAZEPAM 0.5MG TABLET PO PRN ×3 (03:41→21:20)
[2019-08-14] MEDS: CARVEDILOL 3.125 MG TABLET PO SCH ×2 (06:17→19:45)
[2019-08-14] MEDS ORDERED: TRAMADOL 50MG TABLET PO PRN (07:01)
[2019-08-14 07:05] LABS: BASOPHILS % 1.1 % (0.0-2.0); EOSINOPHILS % 4.2 % (0.0-5.0); HEMATOCRIT. 23.3 % (36.0-48.0); HEMOGLOBIN. 8.1 g/dL (12.0-16.0); MEAN CORPUSCULAR HEMOGLOBIN 30.3 pg (28.0-32.0); MEAN CORPUSCULAR VOLUME 87.6 fL (81.0-99.0); MEAN PLATELET VOLUME 7.9 fl (7.4-10.4); MONOCYTES % 13.9 % (2.0-8.0); NEUTROPHILS % 57.8 % (40.0-76.0); PLATELET 160 x1000/uL (130-400); RED BLOOD CELL COUNT 2.66 mill/uL (4.2-5.4); RED CELL DISTRIBUTION WIDTH 18.1 % (11.6-14.6)
[2019-08-14 09:00] VITALS: BP 160/93
[2019-08-14 10:00] VITALS: BP 160/93
[2019-08-14] MEDS: PANTOPRAZOLE SODIUM 40 MG/VIAL IV SCH (10:57)
[2019-08-14 12:00] VITALS: BP 150/90
[2019-08-14] MEDS: SEVELAMER CARBONATE 800 MG TABLET PO SCH ×2 (13:33→18:10)
[2019-08-14] MEDS: DIPHENHYDRAMINE 50MG/ML VIAL IV PRN ×3 (13:35→23:09)
[2019-08-14 15:27] LABS: T4 FREE 0.73 ng/dL (0.76-1.46)
[2019-08-14] MEDS ORDERED: VANCOMYCIN 1 G PREMIX 200 ML IV SCH (16:00)
[2019-08-14] MEDS: PIPERACILLIN/TAZOBACTAM 2.25 G in DEXTROSE 5% WATER 50 ML IV SCH ×2 (16:53→22:04)
[2019-08-14 20:00] VITALS: BP 160/108
[2019-08-14] MEDS: PHENYTOIN SODIUM EXTENDED 100MG CAPSULE PO SCH (21:20)
[2019-08-14] MEDS: ZOLPIDEM TARTRATE 5MG TABLET PO PRN (21:52)
[2019-08-15] VITALS (17 sets, daily range): BP systolic 129–183; BP diastolic 81–109
[2019-08-15] MEDS: DIPHENHYDRAMINE 50MG/ML VIAL IV PRN ×2 (04:55→17:38)
[2019-08-15] MEDS: PIPERACILLIN/TAZOBACTAM 2.25 G in DEXTROSE 5% WATER 50 ML IV SCH ×3 (05:28→21:11)
[2019-08-15] MEDS: CARVEDILOL 3.125 MG TABLET PO SCH ×2 (05:28→18:18)
[2019-08-15] MEDS: SEVELAMER CARBONATE 800 MG TABLET PO SCH ×3 (08:10→17:19)
[2019-08-15 08:54] LABS: BASOPHILS % 1.3 % (0.0-2.0); EOSINOPHILS % 4.6 % (0.0-5.0); HEMATOCRIT. 23.8 % (36.0-48.0); HEMOGLOBIN. 8.2 g/dL (12.0-16.0); MEAN CORPUSCULAR HEMOGLOBIN 30.5 pg (28.0-32.0); MEAN CORPUSCULAR VOLUME 88.4 fL (81.0-99.0); MEAN PLATELET VOLUME 7.7 fl (7.4-10.4); MONOCYTES % 10.6 % (2.0-8.0); NEUTROPHILS % 65.5 % (40.0-76.0); PLATELET 163 x1000/uL (130-400); RED BLOOD CELL COUNT 2.69 mill/uL (4.2-5.4)
[2019-08-15 08:58] LABS: INR 1.1; PROTHROMBIN TIME 11.5 sec (9.6-11.0)
[2019-08-15] MEDS: PANTOPRAZOLE SODIUM 40 MG/VIAL IV SCH (09:11)
[2019-08-15] MEDS ORDERED: DIPHENHYDRAMINE 50MG/ML VIAL IV NR (09:15)
[2019-08-15] MEDS: HYDROMORPHONE HCL/PF 2MG/ML CPJ IV PRN ×3 (10:18→21:11)
[2019-08-15] MEDS ORDERED: SODIUM BICARBONATE 4% (2.4MEQ) 5ML VIAL IV ONE (11:04)
[2019-08-15] MEDS ORDERED: LIDOCAINE HCL 1% 20ML VIAL (Pyxis) INJ ONE (11:04)
[2019-08-15] MEDS ORDERED: HEPARIN 1000 UNITS/ML 10ML ONE (11:04)
[2019-08-15] MEDS ORDERED: FENTANYL CITRATE/PF 50MCG/ML 2ML VIAL ONE (11:42)
[2019-08-15] MEDS ORDERED: FENTANYL CITRATE/PF 50MCG/ML 2ML VIAL IV ONE (12:00)
[2019-08-15] MEDS: ALPRAZOLAM 0.25 MG TABLET PO PRN ×2 (17:19→22:25)
[2019-08-15] MEDS ORDERED: VANCOMYCIN 750 MG PREMIX 150 ML IV NR (18:00)
[2019-08-15] MEDS: PHENYTOIN SODIUM EXTENDED 100MG CAPSULE PO SCH (21:11)
[2019-08-15] MEDS: ZOLPIDEM TARTRATE 5MG TABLET PO PRN (23:36)
[2019-08-16] VITALS: BP 139/78
[2019-08-16] MEDS: DIPHENHYDRAMINE 50MG/ML VIAL IV PRN ×3 (02:06→14:56)
[2019-08-16 04:00] VITALS: BP 146/82
[2019-08-16] MEDS: PIPERACILLIN/TAZOBACTAM 2.25 G in DEXTROSE 5% WATER 50 ML IV SCH ×2 (05:33→13:42)
[2019-08-16] MEDS: CARVEDILOL 3.125 MG TABLET PO SCH ×2 (05:34→18:06)
[2019-08-16] MEDS: HYDROMORPHONE HCL/PF 2MG/ML CPJ IV PRN ×3 (05:36→16:30)
[2019-08-16 08:00] VITALS: BP 129/82
[2019-08-16] MEDS: SEVELAMER CARBONATE 800 MG TABLET PO SCH ×3 (08:33→18:05)
[2019-08-16] MEDS ORDERED: FAMOTIDINE 20MG/2ML VIAL IV SCH (09:00)
[2019-08-16 12:00] VITALS: BP 147/94
[2019-08-16] MEDS: ALPRAZOLAM 0.25 MG TABLET PO PRN (13:42)
[2019-08-16 16:00] VITALS: BP 148/90
[2019-08-16 17:40] VITALS: BP 145/91
== END 2019-08-16 18:32 | disposition home or self-care (01) | DRG 314 ==
LOC: ER 16:37 → 7WST 23:16 → EDBEDREQTM 23:20 → EDBEDREQ 23:20 → ENRESERV 08-14 07:33
PROVIDERS: ADMIT Internal Medicine; ATTEND Internal Medicine
PROC: 30233N1 Transfusion of Nonautologous Red Blood Cells into Peripheral Vein, Percutaneous Approach (ICD-10-PCS; 2019-08-14)
PROC: 5A1D70Z Performance of Urinary Filtration, Intermittent, Less than 6 Hours Per Day (ICD-10-PCS; 2019-08-14)
PROC: 0JH63XZ Insertion of Tunneled Vascular Access Device into Chest Subcutaneous Tissue and Fascia, Percutaneous Approach (ICD-10-PCS; principal; 2019-08-15)
PROC: 02H633Z Insertion of Infusion Device into Right Atrium, Percutaneous Approach (ICD-10-PCS; 2019-08-15)
PROC: B5181ZA Fluoroscopy of Superior Vena Cava using Low Osmolar Contrast, Guidance (ICD-10-PCS; 2019-08-15)
DX: T82.41XA Breakdown (mechanical) of vascular dialysis catheter, initial encounter (principal); N18.6 End stage renal disease; D62 Acute posthemorrhagic anemia; I13.2 Hypertensive heart and chronic kidney disease with heart failure and with stage 5 chronic kidney disease, or end stage renal disease; I50.30 Unspecified diastolic (congestive) heart failure; R18.8 Other ascites; T82.838A Hemorrhage due to vascular prosthetic devices, implants and grafts, initial encounter; E03.9 Hypothyroidism, unspecified; E83.51 Hypocalcemia; I95.9 Hypotension, unspecified; K21.9 Gastro-esophageal reflux disease without esophagitis; M19.90 Unspecified osteoarthritis, unspecified site; F10.10 Alcohol abuse, uncomplicated; G40.909 Epilepsy, unspecified, not intractable, without status epilepticus; K76.9 Liver disease, unspecified; E78.00 Pure hypercholesterolemia, unspecified; F41.9 Anxiety disorder, unspecified; Y82.8 Other medical devices associated with adverse incidents; Y92.89 Other specified places as the place of occurrence of the external cause; Z91.14 Patient's other noncompliance with medication regimen; Z91.15 Patient's noncompliance with renal dialysis; Z91.19 Patient's noncompliance with other medical treatment and regimen; Z99.2 Dependence on renal dialysis; Z98.891 History of uterine scar from previous surgery; Z87.440 Personal history of urinary (tract) infections; Z91.018 Allergy to other foods; Z79.899 Other long term (current) drug therapy
CPT/HCPCS: 36415; 36558; 71045; 77001; 80048; 80053; 80185; 80202; 80307; 80320; 83036; 83605; 83880; 84439; 84443; 84484; 85025; 86850; 86900; 86920; 93005; 93970; 99152; 99285; C1725; C9113; J1170; J1200; J1644; J2270; J2543; J3010; J3370; J3490; J7060; P9016; Q0163; G0480; G0500

== ENCOUNTER 2019-09-03 14:38 | Inpatient (IN) | payer MEDICARE, MEDICAID ==
[~2019-09-03] VITALS: Ht 170.2 cm; Wt 69.0 kg
[2019-09-03 15:27] LABS: MEAN CORPUSCULAR HEMOGLOBIN 30.1 pg (28.0-32.0); MEAN CORPUSCULAR VOLUME 90.6 fL (81.0-99.0); MEAN PLATELET VOLUME 7.4 fl (7.4-10.4); PLATELET 182 x1000/uL (130-400); RED BLOOD CELL COUNT 1.96 mill/uL (4.2-5.4); RED CELL DISTRIBUTION WIDTH 19.1 % (11.6-14.6)
[2019-09-03 15:30] LABS: CHLORIDE 108 mEq/L (98-107); HEMATOCRIT. 17.8 % (36.0-48.0); HEMOGLOBIN. 5.9 g/dL (12.0-16.0)
[2019-09-03] MEDS ORDERED: DIPHENHYDRAMINE 50MG/ML VIAL IV ONE (16:00)
[2019-09-03] MEDS ORDERED: MORPHINE SULFATE 4 MG/ML CPJ (NOT FOR IM USE) IV ONE (16:00)
[2019-09-03 18:02] LABS: PLATELET ESTIMATE NORMAL
[2019-09-03] MEDS ORDERED: ONDANSETRON HCL 4MG/2ML INJ IV PRN (20:15)
[2019-09-03] MEDS ORDERED: IPRATROPIUM/ALBUTEROL 0.5-3(2.5)MG/3ML NEB HHN PRN (20:15)
[2019-09-03] MEDS ORDERED: HYDROCODONE/ACETAMINOPHEN 5/325MG TABLET PO PRN (20:15)
[2019-09-03] MEDS ORDERED: ACETAMINOPHEN 325MG TABLET PO PRN (20:15)
[2019-09-03] MEDS: DIPHENHYDRAMINE 50MG/ML VIAL IV PRN (20:24)
[2019-09-03] MEDS: HYDRALAZINE HCL 100MG TABLET PO SCH (20:24)
[2019-09-03 22:00] VITALS: BP 190/134
[2019-09-04] VITALS (11 sets, daily range): BP systolic 137–204; BP diastolic 75–145
[2019-09-04] MEDS: CLONIDINE 0.1MG TABLET PO PRN ×3 (00:05→18:07)
[2019-09-04] MEDS: MORPHINE SULFATE 2 MG/ML CPJ (NOT FOR IM USE) IV PRN ×3 (00:06→21:50)
[2019-09-04] MEDS ORDERED: DIPHENHYDRAMINE 50MG/ML VIAL IV SCH (02:00)
[2019-09-04] MEDS: DIPHENHYDRAMINE 50MG/ML VIAL IV PRN ×2 (02:09→12:42)
[2019-09-04] MEDS: HYDRALAZINE HCL 100MG TABLET PO SCH ×3 (05:22→21:52)
[2019-09-04 06:07] LABS: BASOPHILS % 1.3 % (0.0-2.0); EOSINOPHILS % 4.2 % (0.0-5.0); HEMATOCRIT. 21.1 % (36.0-48.0); HEMOGLOBIN. 7.3 g/dL (12.0-16.0); LYMPHOCYTES % 17.5 % (20.0-50.0); MEAN CORPUSCULAR HEMOGLOBIN 30.2 pg (28.0-32.0); MEAN CORPUSCULAR VOLUME 87.6 fL (81.0-99.0); MEAN PLATELET VOLUME 7.5 fl (7.4-10.4); MONOCYTES % 7.1 % (2.0-8.0); NEUTROPHILS % 69.9 % (40.0-76.0); PLATELET 181 x1000/uL (130-400); RED BLOOD CELL COUNT 2.41 mill/uL (4.2-5.4); RED CELL DISTRIBUTION WIDTH 18.7 % (11.6-14.6)
[2019-09-04] MEDS: ALPRAZOLAM 0.5 MG TABLET PO PRN ×2 (11:20→20:43)
[2019-09-04 15:29] LABS: TOTAL IRON BINDING CAPACITY 148 ug/dL (250-450)
[2019-09-04 15:56] LABS: VITAMIN B12 SERUM 1324 pg/mL (211-911)
[2019-09-04 16:27] LABS: FERRITIN 20 ng/mL (10-291)
[2019-09-04 17:01] LABS: HAPTOGLOBIN 61 mg/dL (30-200)
[2019-09-04] MEDS: CALCIUM ACETATE 667MG CAPSULE PO SCH (18:30)
[2019-09-04] MEDS: CARVEDILOL 12.5MG TABLET PO SCH (20:39)
[2019-09-04] MEDS: PHENYTOIN SODIUM EXTENDED 100MG CAPSULE PO SCH (20:39)
[2019-09-04 21:33] LABS: INR 1.1; PROTHROMBIN TIME 11.8 sec (9.6-11.0)
[2019-09-05] VITALS: BP_SYST 161; BP_DIAS 103; BP_DIAS 75
[2019-09-05] MEDS: DIPHENHYDRAMINE 50MG/ML VIAL IV PRN ×3 (00:02→20:31)
[2019-09-05] MEDS: ZOLPIDEM TARTRATE 5MG TABLET PO PRN ×2 (01:53→22:47)
[2019-09-05 04:00] VITALS: BP 118/74
[2019-09-05 05:46] LABS: HEMATOCRIT. 22.2 % (36.0-48.0); HEMOGLOBIN. 7.7 g/dL (12.0-16.0); MEAN CORPUSCULAR HEMOGLOBIN 30.1 pg (28.0-32.0); MEAN CORPUSCULAR VOLUME 86.9 fL (81.0-99.0); MEAN PLATELET VOLUME 7.6 fl (7.4-10.4); PLATELET 157 x1000/uL (130-400); RED BLOOD CELL COUNT 2.56 mill/uL (4.2-5.4); RED CELL DISTRIBUTION WIDTH 19.7 % (11.6-14.6)
[2019-09-05] MEDS: HYDRALAZINE HCL 100MG TABLET PO SCH ×3 (06:00→20:30)
[2019-09-05] MEDS: OMEPRAZOLE 20MG CAPSULE EXTENDED RELEASE PO SCH (06:47)
[2019-09-05 08:00] VITALS: BP 155/109
[2019-09-05] MEDS: NIFEDIPINE XL 60MG TAB PO SCH (09:00)
[2019-09-05] MEDS: LOSARTAN POTASSIUM 100 MG TABLET PO SCH (09:00)
[2019-09-05] MEDS: FOLIC ACID/VITAMIN B COMP W-C TABLET PO SCH (09:26)
[2019-09-05] MEDS: CARVEDILOL 12.5MG TABLET PO SCH ×2 (09:27→20:30)
[2019-09-05] MEDS: LEVOTHYROXINE SODIUM 50MCG TABLET PO SCH (09:27)
[2019-09-05] MEDS: CALCIUM ACETATE 667MG CAPSULE PO SCH ×3 (09:27→17:00)
[2019-09-05] MEDS ORDERED: LIDOCAINE HCL 1% 20ML VIAL (Pyxis) INJ ONE (09:50)
[2019-09-05] MEDS ORDERED: SODIUM BICARBONATE 4% (2.4MEQ) 5ML VIAL IV ONE (09:50)
[2019-09-05 10:31] LABS: PLATELET ESTIMATE NORMAL
[2019-09-05] MEDS: MORPHINE SULFATE 2 MG/ML CPJ (NOT FOR IM USE) IV PRN ×2 (11:15→17:00)
[2019-09-05 11:56] VITALS: BP 135/88
[2019-09-05] MEDS: ALPRAZOLAM 0.5 MG TABLET PO PRN ×2 (13:23→20:30)
[2019-09-05] MEDS ORDERED: DIPHENHYDRAMINE 50MG/ML VIAL IV SCH (15:15)
[2019-09-05 16:00] VITALS: BP 136/95
[2019-09-05] MEDS: SUCRALFATE 1 G/10 ML UDC PO SCH ×2 (16:59→20:29)
[2019-09-05 20:00] VITALS: BP 142/89
[2019-09-05] MEDS: PHENYTOIN SODIUM EXTENDED 100MG CAPSULE PO SCH (20:30)
[2019-09-06] VITALS: BP 146/93
[2019-09-06] MEDS: MORPHINE SULFATE 2 MG/ML CPJ (NOT FOR IM USE) IV PRN ×2 (00:15→06:28)
[2019-09-06] MEDS: DIPHENHYDRAMINE 50MG/ML VIAL IV PRN ×2 (03:24→09:14)
[2019-09-06 04:00] VITALS: BP 151/89
[2019-09-06] MEDS: ALPRAZOLAM 0.5 MG TABLET PO PRN ×2 (04:30→11:11)
[2019-09-06] MEDS: HYDRALAZINE HCL 100MG TABLET PO SCH ×2 (06:28→12:52)
[2019-09-06] MEDS: OMEPRAZOLE 20MG CAPSULE EXTENDED RELEASE PO SCH (06:28)
[2019-09-06] MEDS: SUCRALFATE 1 G/10 ML UDC PO SCH ×2 (06:28→12:53)
[2019-09-06 08:00] VITALS: BP 149/100
[2019-09-06] MEDS: NIFEDIPINE XL 60MG TAB PO SCH (08:56)
[2019-09-06] MEDS: FOLIC ACID/VITAMIN B COMP W-C TABLET PO SCH (08:56)
[2019-09-06] MEDS: CALCIUM ACETATE 667MG CAPSULE PO SCH ×2 (08:56→12:53)
[2019-09-06] MEDS: LOSARTAN POTASSIUM 100 MG TABLET PO SCH (08:56)
[2019-09-06] MEDS: CARVEDILOL 12.5MG TABLET PO SCH (08:57)
[2019-09-06] MEDS: LEVOTHYROXINE SODIUM 50MCG TABLET PO SCH (08:57)
[2019-09-06] MEDS ORDERED: MORPHINE SULFATE 2 MG/ML CPJ (NOT FOR IM USE) IV PRN (11:30)
[2019-09-06 12:00] VITALS: BP 159/104
[2019-09-06] MEDS ORDERED: ALPR2TAB2 MT (12:42)
[2019-09-06 12:54] VITALS: BP 159/104
[2019-09-06] MEDS ORDERED: HYDR-4001 MT (13:12)
[2019-09-06] MEDS ORDERED: OMEP20CA14 MT (13:12)
[2019-09-08 09:10] LABS: FOLATE HEMATOCRIT 24.5 % (34.0-46.6)
[2019-09-09 10:06] LABS: FOLATE RBC 1233 ng/mL (>498)
== END 2019-09-06 15:04 | disposition home or self-care (01) | DRG 291 ==
LOC: ER 14:53 → 6WST 15:32 → ENRESERV 15:51
PROVIDERS: ADMIT Internal Medicine; ATTEND Internal Medicine
PROC: 30233N1 Transfusion of Nonautologous Red Blood Cells into Peripheral Vein, Percutaneous Approach (ICD-10-PCS; 2019-09-03)
PROC: 5A1D70Z Performance of Urinary Filtration, Intermittent, Less than 6 Hours Per Day (ICD-10-PCS; principal; 2019-09-04)
PROC: 5A1D70Z Performance of Urinary Filtration, Intermittent, Less than 6 Hours Per Day (ICD-10-PCS; 2019-09-05)
DX: I13.2 Hypertensive heart and chronic kidney disease with heart failure and with stage 5 chronic kidney disease, or end stage renal disease (principal); J96.00 Acute respiratory failure, unspecified whether with hypoxia or hypercapnia; I50.33 Acute on chronic diastolic (congestive) heart failure; N18.6 End stage renal disease; E44.1 Mild protein-calorie malnutrition; R18.8 Other ascites; K86.1 Other chronic pancreatitis; D63.8 Anemia in other chronic diseases classified elsewhere; E03.9 Hypothyroidism, unspecified; F10.10 Alcohol abuse, uncomplicated; F41.9 Anxiety disorder, unspecified; G40.909 Epilepsy, unspecified, not intractable, without status epilepticus; K76.9 Liver disease, unspecified; R94.31 Abnormal electrocardiogram [ECG] [EKG]; I08.1 Rheumatic disorders of both mitral and tricuspid valves; I27.21 Secondary pulmonary arterial hypertension; N94.6 Dysmenorrhea, unspecified; Z91.15 Patient's noncompliance with renal dialysis; Z99.2 Dependence on renal dialysis; Z91.19 Patient's noncompliance with other medical treatment and regimen; Z68.23 Body mass index [BMI] 23.0-23.9, adult; Z91.018 Allergy to other foods
CPT/HCPCS: 36415; 71045; 76705; 76830; 76856; 80048; 80053; 82607; 82728; 82747; 82977; 83010; 83540; 83550; 83615; 83880; 84484; 85014; 85025; 85044; 86850; 86900; 86920; 93005; 96374; 96375; 99285; J1200; J2270; J3490; P9016

== ENCOUNTER 2019-09-12 14:42 | Emergency (ER) | payer MEDICARE, MEDICAID ==
[~2019-09-12] VITALS: Ht 167.6 cm; Wt 64.0 kg
[~2019-09-12 14:42] MED LIST changes: +HYDR-4001 MT; -HYDR100T26 MT; +OMEP20CA14 MT
[2019-09-12] MEDS ORDERED: METOCLOPRAMIDE HCL 10MG/2ML VIAL IV ONE (15:30)
[2019-09-12] MEDS ORDERED: DIPHENHYDRAMINE 50MG/ML VIAL IV ONE (15:30)
[2019-09-12 15:49] LABS: BASOPHILS % 2.8 % (0.0-2.0); CHLORIDE 104 mEq/L (98-107); EOSINOPHILS % 5.2 % (0.0-5.0); HEMATOCRIT. 24.6 % (36.0-48.0); HEMOGLOBIN. 8.4 g/dL (12.0-16.0); LYMPHOCYTES % 28.1 % (20.0-50.0); MEAN CORPUSCULAR HEMOGLOBIN 30.1 pg (28.0-32.0); MEAN CORPUSCULAR VOLUME 87.6 fL (81.0-99.0); MEAN PLATELET VOLUME 7.4 fl (7.4-10.4); MONOCYTES % 10.1 % (2.0-8.0); NEUTROPHILS % 53.8 % (40.0-76.0); PLATELET 224 x1000/uL (130-400); RED BLOOD CELL COUNT 2.81 mill/uL (4.2-5.4); RED CELL DISTRIBUTION WIDTH 20.1 % (11.6-14.6)
[2019-09-12 15:50] LABS: INR 1.1; PROTHROMBIN TIME 11.9 sec (9.6-11.0)
[2019-09-12] MEDS ORDERED: MORPHINE SULFATE 4 MG/ML CPJ (NOT FOR IM USE) IV ONE (16:00)
[2019-09-12] MEDS ORDERED: PHENYTOIN SODIUM 100MG/2ML VIAL IV NR (17:00)
[2019-09-12 17:22] VITALS: BP 180/117
[2019-09-12] MEDS ORDERED: NIFEDIPINE XL 60MG TAB PO ONE (18:15)
[2019-09-12] MEDS ORDERED: HYDRALAZINE 20MG/ML VIAL IV ONE (18:15)
[2019-09-12] MEDS ORDERED: DIPHENHYDRAMINE 25MG CAPSULE PO ONE (18:30)
== END 2019-09-12 19:00 | disposition home or self-care (01) ==
LOC: ER 14:42
DX: I13.2 Hypertensive heart and chronic kidney disease with heart failure and with stage 5 chronic kidney disease, or end stage renal disease (principal); N18.6 End stage renal disease; I50.9 Heart failure, unspecified; G40.909 Epilepsy, unspecified, not intractable, without status epilepticus; D63.1 Anemia in chronic kidney disease; Z91.14 Patient's other noncompliance with medication regimen; Z86.011 Personal history of benign neoplasm of the brain; Z99.2 Dependence on renal dialysis; Z91.018 Allergy to other foods
CPT/HCPCS: 36415; 70450; 71045; 80053; 80185; 84484; 85025; 85610; 93005; 96374; 96375; 99285; J0360; J1165; J2270; Q0163

== ENCOUNTER 2019-09-17 15:33 | Inpatient (IN) | payer MEDICARE, MEDICAID ==
[~2019-09-17] VITALS: Ht 165.1 cm; Wt 51.7 kg
[2019-09-17] MEDS ORDERED: MORPHINE SULFATE 4 MG/ML CPJ (NOT FOR IM USE) IV STA (15:50)
[2019-09-17] MEDS ORDERED: ONDANSETRON HCL 4MG/2ML INJ IV STA (15:50)
[2019-09-17] MEDS ORDERED: DIPHENHYDRAMINE 50MG/ML VIAL IV ONE (16:00)
[2019-09-17 17:24] LABS: BASOPHILS % 0.8 % (0.0-2.0); EOSINOPHILS % 1.4 % (0.0-5.0); LYMPHOCYTES % 17.6 % (20.0-50.0); MEAN CORPUSCULAR VOLUME 91.3 fL (81.0-99.0); MEAN PLATELET VOLUME 7.7 fl (7.4-10.4); MONOCYTES % 11.6 % (2.0-8.0); NEUTROPHILS % 68.6 % (40.0-76.0); PLATELET 154 x1000/uL (130-400); RED BLOOD CELL COUNT 2.19 mill/uL (4.2-5.4); RED CELL DISTRIBUTION WIDTH 20.3 % (11.6-14.6)
[2019-09-17 17:29] LABS: CHLORIDE 92 mEq/L (98-107)
[2019-09-17 17:31] LABS: HEMOGLOBIN. 6.6 g/dL (12.0-16.0)
[2019-09-17 17:34] LABS: ETHANOL BLOOD 104 mg/dL
[2019-09-17] MEDS ORDERED: SODIUM BICARBONATE 8.4% 1 MEQ/ML 50ML SYR IV NR (18:45)
[2019-09-17] MEDS ORDERED: LORAZEPAM 1MG TABLET PO ONE (19:00)
[2019-09-17] MEDS ORDERED: HYDROCODONE/ACETAMINOPHEN 10/325MG TABLET PO PRN (20:00)
[2019-09-17] MEDS ORDERED: IPRATROPIUM/ALBUTEROL 0.5-3(2.5)MG/3ML NEB HHN PRN (20:00)
[2019-09-17] MEDS ORDERED: DOCUSATE SODIUM 100MG CAPSULE PO PRN (20:00)
[2019-09-17] MEDS ORDERED: CLONIDINE 0.1MG TABLET PO PRN (20:00)
[2019-09-17] MEDS ORDERED: GUAIFENESIN 200MG/10ML SUGAR FREE UDC PO PRN (20:00)
[2019-09-17] MEDS ORDERED: ONDANSETRON HCL 4MG/2ML INJ IV PRN (20:00)
[2019-09-17] MEDS ORDERED: HYDRALAZINE 20MG/ML VIAL IV PRN (20:00)
[2019-09-17] MEDS ORDERED: MAGNESIUM/ALUMINUM HYDROXIDE/SIMETHICONE 30ML UDC PO PRN (20:00)
[2019-09-17] MEDS ORDERED: ACETAMINOPHEN 325MG TABLET PO PRN (20:00)
[2019-09-17] MEDS ORDERED: ZOLPIDEM TARTRATE 5MG TABLET PO PRN (20:15)
[2019-09-17] MEDS ORDERED: PHENYTOIN SODIUM EXTENDED 100MG CAPSULE PO NR (21:30)
[2019-09-17] MEDS: MORPHINE SULFATE 2 MG/ML CPJ (NOT FOR IM USE) IV PRN (21:52)
[2019-09-17] MEDS: DIPHENHYDRAMINE 50MG/ML VIAL IV PRN (23:24)
[2019-09-18 00:30] VITALS: BP 148/78
[2019-09-18] MEDS: LORAZEPAM 2MG/ML CPJ IV PRN ×4 (02:22→21:51)
[2019-09-18] MEDS: MORPHINE SULFATE 2 MG/ML CPJ (NOT FOR IM USE) IV PRN ×3 (04:30→20:34)
[2019-09-18] MEDS: DIPHENHYDRAMINE 50MG/ML VIAL IV PRN ×3 (06:15→21:05)
[2019-09-18] MEDS: SODIUM CHLORIDE 0.9% INJ 3ML FLUSH IVF SCH ×3 (06:16→21:04)
[2019-09-18 08:00] VITALS: BP 172/85
[2019-09-18] MEDS: NIFEDIPINE XL 60MG TAB PO SCH (09:29)
[2019-09-18] MEDS: CALCIUM ACETATE 667MG CAPSULE PO SCH ×3 (09:30→17:49)
[2019-09-18] MEDS: LOSARTAN POTASSIUM 100 MG TABLET PO SCH (09:30)
[2019-09-18] MEDS: OMEPRAZOLE 20MG CAPSULE EXTENDED RELEASE PO SCH (09:30)
[2019-09-18] MEDS: HYDRALAZINE HCL 100MG TABLET PO SCH ×3 (09:30→21:04)
[2019-09-18] MEDS: LEVOTHYROXINE SODIUM 50MCG TABLET PO SCH (09:31)
[2019-09-18] MEDS: CARVEDILOL 12.5MG TABLET PO SCH ×2 (09:31→20:35)
[2019-09-18] MEDS: FOLIC ACID/VITAMIN B COMP W-C TABLET PO SCH (09:31)
[2019-09-18 09:47] LABS: BASOPHILS % 0.7 % (0.0-2.0); EOSINOPHILS % 5.2 % (0.0-5.0); HEMOGLOBIN. 8.1 g/dL (12.0-16.0); LYMPHOCYTES % 17.3 % (20.0-50.0); MEAN CORPUSCULAR HEMOGLOBIN 30.4 pg (28.0-32.0); MEAN CORPUSCULAR VOLUME 86.6 fL (81.0-99.0); MEAN PLATELET VOLUME 7.5 fl (7.4-10.4); MONOCYTES % 9.4 % (2.0-8.0); NEUTROPHILS % 67.4 % (40.0-76.0); PLATELET 122 x1000/uL (130-400); RED BLOOD CELL COUNT 2.65 mill/uL (4.2-5.4); RED CELL DISTRIBUTION WIDTH 18.2 % (11.6-14.6)
[2019-09-18 09:51] LABS: CHLORIDE 93 mEq/L (98-107)
[2019-09-18] MEDS ORDERED: LIDOCAINE HCL 1% 20ML VIAL (Pyxis) INJ ONE (10:47)
[2019-09-18] MEDS ORDERED: EPOETIN ALFA 4000UNITS/ML VIAL SUBCUT SCH (11:30)
[2019-09-18 12:00] VITALS: BP 159/93
[2019-09-18 13:10] LABS: HEPATITIS B SURFACE ANTIGEN NEGATIVE
[2019-09-18 13:39] LABS: HEPATITIS A AB IGM NEGATIVE (NEGATIVE)
[2019-09-18 16:00] VITALS: BP 163/102
[2019-09-18 16:08] VITALS: BP 163/102
[2019-09-18 20:00] VITALS: BP 186/112
[2019-09-18] MEDS ORDERED: PHENYTOIN SODIUM EXTENDED 100MG CAPSULE PO SCH (21:00)
[2019-09-19] VITALS: BP 158/89
[2019-09-19 04:00] VITALS: BP_SYST 111; BP_SYST 128; BP_DIAS 78; BP_DIAS 90
[2019-09-19] MEDS: MORPHINE SULFATE 2 MG/ML CPJ (NOT FOR IM USE) IV PRN (04:49)
[2019-09-19] MEDS: HYDRALAZINE HCL 100MG TABLET PO SCH (05:14)
[2019-09-19] MEDS: DIPHENHYDRAMINE 50MG/ML VIAL IV PRN ×2 (05:14→10:10)
[2019-09-19] MEDS: SODIUM CHLORIDE 0.9% INJ 3ML FLUSH IVF SCH (05:15)
[2019-09-19] MEDS: LORAZEPAM 2MG/ML CPJ IV PRN ×2 (05:30→12:36)
[2019-09-19] MEDS: LEVOTHYROXINE SODIUM 50MCG TABLET PO SCH (06:23)
[2019-09-19] MEDS: OMEPRAZOLE 20MG CAPSULE EXTENDED RELEASE PO SCH (06:23)
[2019-09-19 07:40] VITALS: BP 138/91
[2019-09-19 08:37] LABS: EOSINOPHILS % 5.2 % (0.0-5.0); HEMATOCRIT. 24.6 % (36.0-48.0); HEMOGLOBIN. 8.4 g/dL (12.0-16.0); LYMPHOCYTES % 21.3 % (20.0-50.0); MEAN CORPUSCULAR VOLUME 88.3 fL (81.0-99.0); MEAN PLATELET VOLUME 8.2 fl (7.4-10.4); MONOCYTES % 14.4 % (2.0-8.0); NEUTROPHILS % 58.1 % (40.0-76.0); PLATELET 114 x1000/uL (130-400); RED BLOOD CELL COUNT 2.79 mill/uL (4.2-5.4); RED CELL DISTRIBUTION WIDTH 18.8 % (11.6-14.6)
[2019-09-19] MEDS: CARVEDILOL 12.5MG TABLET PO SCH (08:52)
[2019-09-19] MEDS: FOLIC ACID/VITAMIN B COMP W-C TABLET PO SCH (08:52)
[2019-09-19] MEDS: CALCIUM ACETATE 667MG CAPSULE PO SCH ×2 (08:53→13:37)
[2019-09-19] MEDS: LOSARTAN POTASSIUM 100 MG TABLET PO SCH (08:53)
[2019-09-19] MEDS: NIFEDIPINE XL 60MG TAB PO SCH (08:53)
[2019-09-19 09:01] LABS: CHLORIDE 96 mEq/L (98-107)
[2019-09-19 12:00] VITALS: BP 140/89
[2019-09-19 13:42] VITALS: BP 140/89
== END 2019-09-19 16:05 | disposition home or self-care (01) | DRG 291 ==
LOC: ER 15:33 → 6WST 18:59 → ENRESERV 23:47
PROVIDERS: ADMIT Internal Medicine; ATTEND Internal Medicine
PROC: 5A1D70Z Performance of Urinary Filtration, Intermittent, Less than 6 Hours Per Day (ICD-10-PCS; 2019-09-17)
PROC: 30233N1 Transfusion of Nonautologous Red Blood Cells into Peripheral Vein, Percutaneous Approach (ICD-10-PCS; principal; 2019-09-18)
PROC: 02HV33Z Insertion of Infusion Device into Superior Vena Cava, Percutaneous Approach (ICD-10-PCS; 2019-09-18)
PROC: B548ZZA Ultrasonography of Superior Vena Cava, Guidance (ICD-10-PCS; 2019-09-18)
PROC: B5181ZA Fluoroscopy of Superior Vena Cava using Low Osmolar Contrast, Guidance (ICD-10-PCS; 2019-09-18)
DX: I13.2 Hypertensive heart and chronic kidney disease with heart failure and with stage 5 chronic kidney disease, or end stage renal disease (principal); N18.6 End stage renal disease; E87.2 Acidosis; E87.6 Hypokalemia; G40.909 Epilepsy, unspecified, not intractable, without status epilepticus; E03.9 Hypothyroidism, unspecified; D63.1 Anemia in chronic kidney disease; F10.129 Alcohol abuse with intoxication, unspecified; R74.0 Nonspecific elevation of levels of transaminase and lactic acid dehydrogenase [LDH]; R73.9 Hyperglycemia, unspecified; Z91.15 Patient's noncompliance with renal dialysis; Z99.2 Dependence on renal dialysis; Z91.010 Allergy to peanuts; Z91.018 Allergy to other foods; Z79.01 Long term (current) use of anticoagulants; Z79.899 Other long term (current) drug therapy
CPT/HCPCS: 36415; 36573; 71045; 76700; 76937; 80053; 80076; 80320; 82962; 83880; 84484; 85025; 86705; 86709; 86803; 86850; 86900; 86920; 87340; 93005; 93970; 96374; 99285; C1725; J0885; J1200; J2060; J2270; J2405; J3490; P9016; G0480

== ENCOUNTER 2019-09-27 16:30 | Inpatient (IN) | payer MEDICARE, MEDICAID ==
[~2019-09-27] VITALS: Ht 170.2 cm
[~2019-09-27 16:30] MED LIST changes: -LEVO25TA7 PO; -OMEP20CA14 MT
[2019-09-27] MEDS ORDERED: ACETAMINOPHEN 325MG TABLET PO STA (17:14)
[2019-09-27 17:50] LABS: BASOPHILS % 1.9 % (0.0-2.0); EOSINOPHILS % 3.3 % (0.0-5.0); HEMATOCRIT. 23.1 % (36.0-48.0); HEMOGLOBIN. 7.9 g/dL (12.0-16.0); LYMPHOCYTES % 41.9 % (20.0-50.0); MEAN CORPUSCULAR HEMOGLOBIN 30.5 pg (28.0-32.0); MEAN CORPUSCULAR VOLUME 89.3 fL (81.0-99.0); MEAN PLATELET VOLUME 7.5 fl (7.4-10.4); MONOCYTES % 11.2 % (2.0-8.0); NEUTROPHILS % 41.7 % (40.0-76.0); PLATELET 235 x1000/uL (130-400); RED BLOOD CELL COUNT 2.59 mill/uL (4.2-5.4); RED CELL DISTRIBUTION WIDTH 18.6 % (11.6-14.6)
[2019-09-27 17:57] LABS: CHLORIDE 98 mEq/L (98-107); INR 1.1
[2019-09-27] MEDS ORDERED: ONDANSETRON HCL 4MG/2ML INJ IV STA (18:07)
[2019-09-27] MEDS ORDERED: MORPHINE SULFATE 4 MG/ML CPJ (NOT FOR IM USE) IV STA (18:07)
[2019-09-27] MEDS ORDERED: DIPHENHYDRAMINE 25MG CAPSULE PO ONE (18:15)
[2019-09-27] MEDS ORDERED: LORAZEPAM 1MG TABLET PO ONE (20:15)
[2019-09-28] MEDS ORDERED: HYDROCODONE/ACETAMINOPHEN 5/325MG TABLET PO PRN (00:30)
[2019-09-28 01:00] VITALS: BP 159/90
[2019-09-28] MEDS: ALPRAZOLAM 0.5 MG TABLET PO PRN ×3 (01:47→18:29)
[2019-09-28] MEDS: DIPHENHYDRAMINE 50MG/ML VIAL IV PRN ×3 (01:47→23:18)
[2019-09-28 04:00] VITALS: BP 160/96
[2019-09-28] MEDS: HYDRALAZINE HCL 100MG TABLET PO SCH ×4 (06:00→22:00)
[2019-09-28] MEDS: OMEPRAZOLE 20MG CAPSULE EXTENDED RELEASE PO SCH (06:54)
[2019-09-28] MEDS ORDERED: LEVOTHYROXINE SODIUM 50MCG TABLET PO SCH (07:20)
[2019-09-28 08:00] VITALS: BP 156/97
[2019-09-28] MEDS: CALCIUM ACETATE 667MG CAPSULE PO SCH ×3 (08:13→18:29)
[2019-09-28] MEDS: FOLIC ACID/VITAMIN B COMP W-C TABLET PO SCH (08:13)
[2019-09-28] MEDS: CARVEDILOL 12.5MG TABLET PO SCH ×2 (09:00→20:43)
[2019-09-28] MEDS: NIFEDIPINE XL 60MG TAB PO SCH (09:00)
[2019-09-28] MEDS: LOSARTAN POTASSIUM 100 MG TABLET PO SCH (09:00)
[2019-09-28 12:43] VITALS: BP 155/96
[2019-09-28] MEDS: HYDROCODONE/ACETAMINOPHEN 5/325MG TABLET PO PRN ×2 (15:03→20:39)
[2019-09-28 16:00] VITALS: BP 179/118
[2019-09-28 20:00] VITALS: BP 150/90
[2019-09-28] MEDS: PHENYTOIN SODIUM EXTENDED 100MG CAPSULE PO SCH (20:33)
[2019-09-29] VITALS (11 sets, daily range): BP systolic 117–142; BP diastolic 72–91
[2019-09-29] MEDS: ALPRAZOLAM 0.5 MG TABLET PO PRN ×3 (03:07→18:09)
[2019-09-29] MEDS: HYDROCODONE/ACETAMINOPHEN 5/325MG TABLET PO PRN ×2 (03:09→21:37)
[2019-09-29] MEDS: EPOETIN ALFA 10000UNITS/ML VIAL SUBCUT SCH (03:09)
[2019-09-29] MEDS: HYDRALAZINE HCL 100MG TABLET PO SCH ×3 (05:53→21:15)
[2019-09-29] MEDS: DIPHENHYDRAMINE 50MG/ML VIAL IV PRN ×3 (06:10→20:22)
[2019-09-29 06:49] LABS: MEAN CORPUSCULAR HEMOGLOBIN 31.2 pg (28.0-32.0); MEAN CORPUSCULAR VOLUME 88.5 fL (81.0-99.0); MEAN PLATELET VOLUME 7.5 fl (7.4-10.4); PLATELET 161 x1000/uL (130-400); RED BLOOD CELL COUNT 2.25 mill/uL (4.2-5.4); RED CELL DISTRIBUTION WIDTH 18.5 % (11.6-14.6)
[2019-09-29] MEDS: CALCIUM ACETATE 667MG CAPSULE PO SCH ×3 (06:57→18:08)
[2019-09-29] MEDS: LEVOTHYROXINE SODIUM 100MCG TABLET PO SCH (06:57)
[2019-09-29] MEDS: OMEPRAZOLE 20MG CAPSULE EXTENDED RELEASE PO SCH (06:57)
[2019-09-29 07:30] LABS: HEMATOCRIT. 19.9 % (36.0-48.0)
[2019-09-29] MEDS: FOLIC ACID/VITAMIN B COMP W-C TABLET PO SCH (08:28)
[2019-09-29] MEDS: CARVEDILOL 12.5MG TABLET PO SCH ×2 (08:28→21:14)
[2019-09-29] MEDS: LOSARTAN POTASSIUM 100 MG TABLET PO SCH (09:46)
[2019-09-29] MEDS: NIFEDIPINE XL 60MG TAB PO SCH (09:46)
[2019-09-29 11:32] LABS: PLATELET ESTIMATE NORMAL
[2019-09-29] MEDS ORDERED: ACETAMINOPHEN 650MG/20.3ML UDC PO PRN (15:45)
[2019-09-29] MEDS: PHENYTOIN SODIUM EXTENDED 100MG CAPSULE PO SCH (21:14)
[2019-09-30] VITALS: BP 123/73
[2019-09-30 00:06] LABS: HEMATOCRIT 22.1 % (36.0-48.0); HEMOGLOBIN 7.6 g/dL (12.0-16.0)
[2019-09-30] MEDS: ALPRAZOLAM 0.5 MG TABLET PO PRN ×4 (00:10→23:14)
[2019-09-30] MEDS: DIPHENHYDRAMINE 50MG/ML VIAL IV PRN ×3 (02:27→21:30)
[2019-09-30 04:00] VITALS: BP 141/93
[2019-09-30] MEDS: HYDRALAZINE HCL 100MG TABLET PO SCH ×3 (06:58→22:00)
[2019-09-30 08:15] VITALS: BP 143/94
[2019-09-30 08:42] LABS: HEMATOCRIT. 21.2 % (36.0-48.0); HEMOGLOBIN. 7.3 g/dL (12.0-16.0); MEAN CORPUSCULAR HEMOGLOBIN 30.8 pg (28.0-32.0); MEAN CORPUSCULAR VOLUME 89.7 fL (81.0-99.0); MEAN PLATELET VOLUME 8.2 fl (7.4-10.4); PLATELET 137 x1000/uL (130-400); RED BLOOD CELL COUNT 2.36 mill/uL (4.2-5.4); RED CELL DISTRIBUTION WIDTH 18.1 % (11.6-14.6)
[2019-09-30] MEDS: OMEPRAZOLE 20MG CAPSULE EXTENDED RELEASE PO SCH (09:16)
[2019-09-30] MEDS: LEVOTHYROXINE SODIUM 100MCG TABLET PO SCH (09:17)
[2019-09-30] MEDS: FOLIC ACID/VITAMIN B COMP W-C TABLET PO SCH (09:17)
[2019-09-30] MEDS: LOSARTAN POTASSIUM 100 MG TABLET PO SCH (09:17)
[2019-09-30] MEDS: NIFEDIPINE XL 60MG TAB PO SCH (09:17)
[2019-09-30] MEDS: CARVEDILOL 12.5MG TABLET PO SCH ×2 (09:17→21:00)
[2019-09-30] MEDS: CALCIUM ACETATE 667MG CAPSULE PO SCH ×3 (09:17→17:57)
[2019-09-30 11:14] LABS: PLATELET ESTIMATE NORMAL
[2019-09-30 12:30] VITALS: BP 141/92
[2019-09-30] MEDS ORDERED: HYDR100T26 PO (13:01)
[2019-09-30] MEDS ORDERED: OMEP20CA14 PO (13:01)
[2019-09-30] MEDS ORDERED: LOSA100T32 MT (13:01)
[2019-09-30] MEDS ORDERED: LEVO100T MT (13:01)
[2019-09-30] MEDS ORDERED: ALPR2TAB2 MT (13:01)
[2019-09-30] MEDS ORDERED: NIFE-32 MT (13:01)
[2019-09-30] MEDS ORDERED: CALC667C PO (13:01)
[2019-09-30] MEDS ORDERED: PHEN100C12 PO (13:01)
[2019-09-30] MEDS ORDERED: COR12 PO (13:01)
[2019-09-30] MEDS ORDERED: NEPVIT PO (13:01)
[2019-09-30] MEDS: HYDROMORPHONE HCL/PF 2MG/ML CPJ IV PRN ×2 (14:33→18:53)
[2019-09-30 16:40] VITALS: BP 144/95
[2019-09-30 20:00] VITALS: BP 134/85
[2019-09-30] MEDS: EPOETIN ALFA 10000UNITS/ML VIAL SUBCUT SCH (21:00)
[2019-09-30] MEDS: PHENYTOIN SODIUM EXTENDED 100MG CAPSULE PO SCH (21:00)
[2019-10-01] VITALS (7 sets, daily range): BP systolic 127–172; BP diastolic 76–95
[2019-10-01] MEDS: HYDROMORPHONE HCL/PF 2MG/ML CPJ IV PRN ×8 (02:24→09:04)
[2019-10-01] MEDS: HYDRALAZINE HCL 100MG TABLET PO SCH ×2 (06:00→14:00)
[2019-10-01 06:55] LABS: BASOPHILS % 1.4 % (0.0-2.0); EOSINOPHILS % 3.1 % (0.0-5.0); HEMATOCRIT. 26.7 % (36.0-48.0); HEMOGLOBIN. 9.2 g/dL (12.0-16.0); LYMPHOCYTES % 23.6 % (20.0-50.0); MEAN CORPUSCULAR HEMOGLOBIN 30.8 pg (28.0-32.0); MEAN CORPUSCULAR VOLUME 89.3 fL (81.0-99.0); MEAN PLATELET VOLUME 8.3 fl (7.4-10.4); MONOCYTES % 13.7 % (2.0-8.0); NEUTROPHILS % 58.2 % (40.0-76.0); PLATELET 152 x1000/uL (130-400); RED BLOOD CELL COUNT 2.99 mill/uL (4.2-5.4); RED CELL DISTRIBUTION WIDTH 17.5 % (11.6-14.6)
[2019-10-01] MEDS: OMEPRAZOLE 20MG CAPSULE EXTENDED RELEASE PO SCH (08:51)
[2019-10-01] MEDS: FOLIC ACID/VITAMIN B COMP W-C TABLET PO SCH (08:51)
[2019-10-01] MEDS: CARVEDILOL 12.5MG TABLET PO SCH (08:52)
[2019-10-01] MEDS: LOSARTAN POTASSIUM 100 MG TABLET PO SCH (08:52)
[2019-10-01] MEDS: NIFEDIPINE XL 60MG TAB PO SCH (08:52)
[2019-10-01] MEDS: CALCIUM ACETATE 667MG CAPSULE PO SCH ×2 (08:52→12:51)
[2019-10-01] MEDS: LEVOTHYROXINE SODIUM 100MCG TABLET PO SCH (08:53)
[2019-10-01] MEDS: HYDROCODONE/ACETAMINOPHEN 5/325MG TABLET PO PRN (08:54)
[2019-10-01] MEDS: ALPRAZOLAM 0.5 MG TABLET PO PRN (11:41)
[2019-10-01] MEDS: DIPHENHYDRAMINE 50MG/ML VIAL IV PRN (12:59)
== END 2019-10-01 14:25 | disposition home or self-care (01) | DRG 640 ==
LOC: ER 16:30 → 6WST 19:13 → EDBEDREQ 19:15 → ENRESERV 22:11 → 6WST 09-28 23:13
PROVIDERS: ADMIT Internal Medicine; ATTEND Internal Medicine
PROC: 5A1D70Z Performance of Urinary Filtration, Intermittent, Less than 6 Hours Per Day (ICD-10-PCS; principal; 2019-09-28)
PROC: 30233N1 Transfusion of Nonautologous Red Blood Cells into Peripheral Vein, Percutaneous Approach (ICD-10-PCS; 2019-09-29)
PROC: 5A1D70Z Performance of Urinary Filtration, Intermittent, Less than 6 Hours Per Day (ICD-10-PCS; 2019-09-30)
DX: E87.5 Hyperkalemia (principal); N18.6 End stage renal disease; I13.2 Hypertensive heart and chronic kidney disease with heart failure and with stage 5 chronic kidney disease, or end stage renal disease; R18.8 Other ascites; E87.1 Hypo-osmolality and hyponatremia; E03.9 Hypothyroidism, unspecified; F41.9 Anxiety disorder, unspecified; G40.909 Epilepsy, unspecified, not intractable, without status epilepticus; F10.20 Alcohol dependence, uncomplicated; I27.20 Pulmonary hypertension, unspecified; I50.9 Heart failure, unspecified; K72.90 Hepatic failure, unspecified without coma; D64.9 Anemia, unspecified; K29.70 Gastritis, unspecified, without bleeding; Z99.2 Dependence on renal dialysis; Z76.5 Malingerer [conscious simulation]; Z91.19 Patient's noncompliance with other medical treatment and regimen; Z91.010 Allergy to peanuts; Z91.018 Allergy to other foods; Z79.01 Long term (current) use of anticoagulants; Z79.899 Other long term (current) drug therapy
CPT/HCPCS: 36415; 71045; 80048; 80053; 84484; 85014; 85018; 85025; 86850; 86900; 86920; 93005; 99285; J0885; J1170; J1200; J2270; J2405; P9016; Q0163

== ENCOUNTER 2019-10-19 18:57 | Inpatient (IN) | payer MEDICARE, MEDICAID ==
[~2019-10-19] VITALS: Ht 170.2 cm; Wt 58.7 kg
[~2019-10-19 18:57] MED LIST changes: -CARV12.545 PO; +COR12 PO; +LEVO100T MT; +LEVO100T9 PO; -LEVO50TA MT; +PHEN100C4 PO
[2019-10-19 19:49] LABS: EOSINOPHILS % 7.2 % (0.0-5.0); HEMATOCRIT. 24.2 % (36.0-48.0); HEMOGLOBIN. 8.4 g/dL (12.0-16.0); LYMPHOCYTES % 28.6 % (20.0-50.0); MEAN CORPUSCULAR VOLUME 92.4 fL (81.0-99.0); MONOCYTES % 9.5 % (2.0-8.0); NEUTROPHILS % 52.7 % (40.0-76.0); PLATELET 145 x1000/uL (130-400); RED BLOOD CELL COUNT 2.62 mill/uL (4.2-5.4); RED CELL DISTRIBUTION WIDTH 18.7 % (11.6-14.6)
[2019-10-19 19:57] LABS: INR 1.1
[2019-10-19 20:04] LABS: CHLORIDE 98 mEq/L (98-107)
[2019-10-19] MEDS ORDERED: ACETAMINOPHEN 325MG TABLET PO ONE (20:15)
[2019-10-19] MEDS ORDERED: AMLODIPINE 10MG TABLET PO ONE (20:15)
[2019-10-19] MEDS ORDERED: ONDANSETRON HCL 4MG/2ML INJ IV ONE (23:15)
[2019-10-19] MEDS ORDERED: MAGNESIUM/ALUMINUM HYDROXIDE/SIMETHICONE 30ML UDC PO PRN (23:30)
[2019-10-19] MEDS ORDERED: DOCUSATE SODIUM 100MG CAPSULE PO PRN (23:30)
[2019-10-19] MEDS ORDERED: ENOXAPARIN 40MG/0.4ML SYR SUBCUT SCH (23:30)
[2019-10-19] MEDS ORDERED: ONDANSETRON HCL 4MG/2ML INJ IV PRN (23:30)
[2019-10-19] MEDS ORDERED: GUAIFENESIN 200MG/10ML SUGAR FREE UDC PO PRN (23:30)
[2019-10-19] MEDS ORDERED: CLONIDINE 0.1MG TABLET PO PRN (23:30)
[2019-10-19] MEDS ORDERED: IPRATROPIUM/ALBUTEROL 0.5-3(2.5)MG/3ML NEB HHN PRN (23:30)
[2019-10-19] MEDS ORDERED: HYDROCODONE/ACETAMINOPHEN 10/325MG TABLET PO PRN (23:30)
[2019-10-19] MEDS ORDERED: HYDRALAZINE 20MG/ML VIAL IV PRN (23:30)
[2019-10-19] MEDS ORDERED: ACETAMINOPHEN 325MG TABLET PO PRN (23:30)
[2019-10-20] MEDS: MORPHINE SULFATE 2 MG/ML CPJ (NOT FOR IM USE) IV PRN ×2 (00:15→04:18)
[2019-10-20] MEDS: DIPHENHYDRAMINE 50MG/ML VIAL IV PRN ×5 (00:15→21:53)
[2019-10-20 04:30] VITALS: BP 167/111
[2019-10-20] MEDS: LEVOTHYROXINE SODIUM 100MCG TABLET PO SCH (06:25)
[2019-10-20] MEDS: HYDRALAZINE HCL 100MG TABLET PO SCH ×3 (06:25→21:54)
[2019-10-20] MEDS: OMEPRAZOLE 20MG CAPSULE EXTENDED RELEASE PO SCH (06:26)
[2019-10-20] MEDS: SODIUM CHLORIDE 0.9% INJ 3ML FLUSH IVF SCH ×3 (06:26→21:53)
[2019-10-20] MEDS: LORAZEPAM 2MG/ML CPJ IV PRN ×2 (06:31→14:07)
[2019-10-20 08:00] VITALS: BP 154/104
[2019-10-20] MEDS: CALCIUM ACETATE 667MG CAPSULE PO SCH ×3 (09:07→17:50)
[2019-10-20] MEDS: CARVEDILOL 12.5MG TABLET PO SCH ×2 (09:07→20:46)
[2019-10-20] MEDS: NIFEDIPINE XL 60MG TAB PO SCH (09:07)
[2019-10-20] MEDS: FOLIC ACID/VITAMIN B COMP W-C TABLET PO SCH (09:07)
[2019-10-20] MEDS: LOSARTAN POTASSIUM 100 MG TABLET PO SCH (09:07)
[2019-10-20] MEDS: ENOXAPARIN 30MG/0.3ML SYR SUBCUT SCH (09:08)
[2019-10-20] MEDS: HYDROMORPHONE HCL/PF 2MG/ML CPJ IV PRN ×3 (10:02→20:46)
[2019-10-20 12:00] VITALS: BP 164/102
[2019-10-20 14:00] LABS: BASOPHILS % 1.1 % (0.0-2.0); EOSINOPHILS % 4.9 % (0.0-5.0); HEMATOCRIT. 22.4 % (36.0-48.0); HEMOGLOBIN. 7.7 g/dL (12.0-16.0); MEAN CORPUSCULAR HEMOGLOBIN 32.1 pg (28.0-32.0); MEAN CORPUSCULAR VOLUME 93.2 fL (81.0-99.0); MEAN PLATELET VOLUME 8.7 fl (7.4-10.4); MONOCYTES % 10.5 % (2.0-8.0); NEUTROPHILS % 57.5 % (40.0-76.0); PLATELET 121 x1000/uL (130-400); RED CELL DISTRIBUTION WIDTH 18.6 % (11.6-14.6)
[2019-10-20 14:02] LABS: CHLORIDE 99 mEq/L (98-107)
[2019-10-20 14:12] LABS: CREATINE KINASE 67 IU/L (26-192); CREATINE KINASE MB FRACTION 1.7 ng/mL (0.5-3.6)
[2019-10-20 16:00] VITALS: BP 153/94
[2019-10-20 16:10] LABS: CREATINE KINASE 78 IU/L (26-192)
[2019-10-20 16:11] LABS: CREATINE KINASE MB FRACTION 1.5 ng/mL (0.5-3.6)
[2019-10-20 20:00] VITALS: BP 114/62
[2019-10-20] MEDS: PHENYTOIN SODIUM EXTENDED 100MG CAPSULE PO SCH (20:46)
[2019-10-21] VITALS: BP 137/81
[2019-10-21] MEDS: LORAZEPAM 2MG/ML CPJ IV PRN ×3 (00:19→16:42)
[2019-10-21 04:00] VITALS: BP 137/82
[2019-10-21] MEDS: HYDROMORPHONE HCL/PF 2MG/ML CPJ IV PRN ×3 (05:07→22:39)
[2019-10-21] MEDS: SODIUM CHLORIDE 0.9% INJ 3ML FLUSH IVF SCH ×3 (06:11→22:37)
[2019-10-21] MEDS: DIPHENHYDRAMINE 50MG/ML VIAL IV PRN ×3 (06:11→20:27)
[2019-10-21] MEDS: HYDRALAZINE HCL 100MG TABLET PO SCH ×3 (06:12→22:38)
[2019-10-21] MEDS: LEVOTHYROXINE SODIUM 100MCG TABLET PO SCH (06:20)
[2019-10-21] MEDS: CALCIUM ACETATE 667MG CAPSULE PO SCH ×3 (06:20→22:36)
[2019-10-21] MEDS: OMEPRAZOLE 20MG CAPSULE EXTENDED RELEASE PO SCH (06:20)
[2019-10-21 06:39] LABS: BASOPHILS % 1.2 % (0.0-2.0); EOSINOPHILS % 6.5 % (0.0-5.0); HEMATOCRIT. 21.4 % (36.0-48.0); HEMOGLOBIN. 7.6 g/dL (12.0-16.0); MEAN CORPUSCULAR HEMOGLOBIN 32.6 pg (28.0-32.0); MEAN CORPUSCULAR VOLUME 92.2 fL (81.0-99.0); MEAN PLATELET VOLUME 8.5 fl (7.4-10.4); MONOCYTES % 13.7 % (2.0-8.0); NEUTROPHILS % 55.6 % (40.0-76.0); PLATELET 131 x1000/uL (130-400); RED BLOOD CELL COUNT 2.32 mill/uL (4.2-5.4); RED CELL DISTRIBUTION WIDTH 18.3 % (11.6-14.6)
[2019-10-21 08:00] VITALS: BP 139/88
[2019-10-21] MEDS: NIFEDIPINE XL 60MG TAB PO SCH (09:44)
[2019-10-21] MEDS: CARVEDILOL 12.5MG TABLET PO SCH ×2 (09:44→22:37)
[2019-10-21] MEDS: FOLIC ACID/VITAMIN B COMP W-C TABLET PO SCH (09:44)
[2019-10-21] MEDS: LOSARTAN POTASSIUM 100 MG TABLET PO SCH (09:44)
[2019-10-21] MEDS: ENOXAPARIN 30MG/0.3ML SYR SUBCUT SCH (09:45)
[2019-10-21 12:00] VITALS: BP 132/83
[2019-10-21 16:00] VITALS: BP 123/78
[2019-10-21 20:00] VITALS: BP 128/84
[2019-10-21] MEDS: PHENYTOIN SODIUM EXTENDED 100MG CAPSULE PO SCH (22:37)
[2019-10-22] VITALS: BP 117/78
[2019-10-22] MEDS: DIPHENHYDRAMINE 50MG/ML VIAL IV PRN ×2 (00:35→06:43)
[2019-10-22 04:00] VITALS: BP 128/68
[2019-10-22] MEDS: HYDROMORPHONE HCL/PF 2MG/ML CPJ IV PRN ×2 (04:46→10:50)
[2019-10-22] MEDS: SODIUM CHLORIDE 0.9% INJ 3ML FLUSH IVF SCH (06:29)
[2019-10-22] MEDS: HYDRALAZINE HCL 100MG TABLET PO SCH (06:29)
[2019-10-22 07:45] LABS: HEMATOCRIT. 21.9 % (36.0-48.0); HEMOGLOBIN. 7.6 g/dL (12.0-16.0); MEAN CORPUSCULAR HEMOGLOBIN 32.9 pg (28.0-32.0); MEAN CORPUSCULAR VOLUME 94.4 fL (81.0-99.0); MEAN PLATELET VOLUME 8.9 fl (7.4-10.4); PLATELET 118 x1000/uL (130-400); RED BLOOD CELL COUNT 2.32 mill/uL (4.2-5.4); RED CELL DISTRIBUTION WIDTH 18.9 % (11.6-14.6)
[2019-10-22 08:00] VITALS: BP 161/89
[2019-10-22] MEDS: LORAZEPAM 2MG/ML CPJ IV PRN (08:05)
[2019-10-22] MEDS: FOLIC ACID/VITAMIN B COMP W-C TABLET PO SCH (08:05)
[2019-10-22] MEDS: LEVOTHYROXINE SODIUM 100MCG TABLET PO SCH (08:05)
[2019-10-22] MEDS: CALCIUM ACETATE 667MG CAPSULE PO SCH (08:05)
[2019-10-22] MEDS: ENOXAPARIN 30MG/0.3ML SYR SUBCUT SCH (08:12)
[2019-10-22] MEDS: LOSARTAN POTASSIUM 100 MG TABLET PO SCH (09:00)
[2019-10-22] MEDS ORDERED: FAMOTIDINE 20MG TABLET PO SCH (09:00)
[2019-10-22] MEDS: NIFEDIPINE XL 60MG TAB PO SCH (09:00)
[2019-10-22] MEDS: CARVEDILOL 12.5MG TABLET PO SCH (09:00)
[2019-10-22 10:47] VITALS: BP 131/85
[2019-10-22 12:00] VITALS: BP 136/92
[2019-10-22 14:37] LABS: PLATELET ESTIMATE DECREASED
[2019-10-22] MEDS ORDERED: EPOETIN ALFA 10000UNITS/ML VIAL SUBCUT SCH (21:00)
[2019-11-11] MEDS ORDERED: ALPR2TAB2 MT (14:27)
[2019-11-12] MEDS ORDERED: ALPR2TAB2 MT (13:40)
== END 2019-10-22 12:30 | disposition home or self-care (01) | DRG 640 ==
LOC: ER 18:57 → EDBEDREQ 20:44 → 6WST 22:13 → EDBEDREQ 22:44 → ENRESERV 10-20 03:50
PROVIDERS: ADMIT Internal Medicine; ATTEND Internal Medicine
PROC: 5A1D70Z Performance of Urinary Filtration, Intermittent, Less than 6 Hours Per Day (ICD-10-PCS; principal; 2019-10-20)
PROC: 5A1D70Z Performance of Urinary Filtration, Intermittent, Less than 6 Hours Per Day (ICD-10-PCS; 2019-10-21)
DX: E87.5 Hyperkalemia (principal); N18.6 End stage renal disease; I13.2 Hypertensive heart and chronic kidney disease with heart failure and with stage 5 chronic kidney disease, or end stage renal disease; R18.8 Other ascites; E87.70 Fluid overload, unspecified; E03.9 Hypothyroidism, unspecified; G40.909 Epilepsy, unspecified, not intractable, without status epilepticus; K76.9 Liver disease, unspecified; F10.20 Alcohol dependence, uncomplicated; D64.9 Anemia, unspecified; F41.1 Generalized anxiety disorder; Z79.01 Long term (current) use of anticoagulants; Z79.899 Other long term (current) drug therapy; Z91.018 Allergy to other foods; Z99.2 Dependence on renal dialysis; Z91.010 Allergy to peanuts
CPT/HCPCS: 36415; 71045; 80048; 80053; 82550; 82553; 84484; 85025; 93005; 93970; 99291; J0360; J1170; J1200; J1650; J2060; J2270; J2405

== ENCOUNTER 2019-10-27 13:10 | Inpatient (IN) | payer MEDICARE, MEDICAID ==
[~2019-10-27] VITALS: Ht 167.6 cm; Wt 57.2 kg
[2019-10-27] MEDS ORDERED: ACETAMINOPHEN 325MG TABLET PO STA (14:39)
[2019-10-27 15:56] LABS: CHLORIDE 105 mEq/L (98-107); MEAN CORPUSCULAR HEMOGLOBIN 32.6 pg (28.0-32.0); MEAN PLATELET VOLUME 7.9 fl (7.4-10.4); PLATELET 177 x1000/uL (130-400); RED BLOOD CELL COUNT 2.01 mill/uL (4.2-5.4); RED CELL DISTRIBUTION WIDTH 18.2 % (11.6-14.6)
[2019-10-27 15:58] LABS: INR 1.1; PROTHROMBIN TIME 11.6 sec (9.6-11.0)
[2019-10-27 16:00] LABS: HEMOGLOBIN. 6.5 g/dL (12.0-16.0)
[2019-10-27 16:01] LABS: HEMATOCRIT. 18.7 % (36.0-48.0)
[2019-10-27] MEDS ORDERED: DIPHENHYDRAMINE 25MG CAPSULE PO ONE (16:15)
[2019-10-27 16:34] LABS: PLATELET ESTIMATE NORMAL
[2019-10-27] MEDS ORDERED: HYDRALAZINE HCL 100MG TABLET PO ONE (18:00)
[2019-10-27] MEDS ORDERED: DIPHENHYDRAMINE 50MG/ML VIAL IV PRN (19:30)
[2019-10-27] MEDS: MORPHINE SULFATE 4 MG/ML CPJ (NOT FOR IM USE) IV PRN (20:14)
[2019-10-27] MEDS ORDERED: ACETAMINOPHEN 325MG TABLET PO PRN (20:45)
[2019-10-27] MEDS ORDERED: HYDROCODONE/ACETAMINOPHEN 5/325MG TABLET PO PRN (20:45)
[2019-10-27] MEDS ORDERED: DIPHENHYDRAMINE 50MG CAPSULE PO PRN (20:45)
[2019-10-27] MEDS ORDERED: ONDANSETRON HCL 4MG/2ML INJ IV PRN (20:45)
[2019-10-27] MEDS ORDERED: CLONIDINE 0.1MG TABLET PO PRN (20:45)
[2019-10-27] MEDS: PHENYTOIN SODIUM EXTENDED 100MG CAPSULE PO SCH (22:00)
[2019-10-27] MEDS: HYDRALAZINE HCL 100MG TABLET PO SCH (22:14)
[2019-10-27] MEDS: ALPRAZOLAM 0.5 MG TABLET PO PRN (22:14)
[2019-10-27] MEDS: LOSARTAN POTASSIUM 100 MG TABLET PO SCH (22:15)
[2019-10-28 00:28] VITALS: BP 193/116
[2019-10-28] MEDS: MORPHINE SULFATE 4 MG/ML CPJ (NOT FOR IM USE) IV PRN ×4 (01:14→17:17)
[2019-10-28 04:13] VITALS: BP 178/107
[2019-10-28] MEDS: HYDRALAZINE HCL 100MG TABLET PO SCH ×3 (06:31→21:34)
[2019-10-28] MEDS: LEVOTHYROXINE SODIUM 100MCG TABLET PO SCH (06:32)
[2019-10-28] MEDS: OMEPRAZOLE 20MG CAPSULE EXTENDED RELEASE PO SCH (06:32)
[2019-10-28] MEDS: ALPRAZOLAM 0.5 MG TABLET PO PRN ×2 (06:33→16:22)
[2019-10-28 08:00] VITALS: BP 164/98
[2019-10-28] MEDS: FOLIC ACID 1MG TABLET PO SCH (08:35)
[2019-10-28] MEDS: CALCIUM ACETATE 667MG CAPSULE PO SCH ×3 (08:35→17:16)
[2019-10-28] MEDS: THIAMINE HCL 100MG TABLET PO SCH (08:35)
[2019-10-28] MEDS: LOSARTAN POTASSIUM 100 MG TABLET PO SCH (08:35)
[2019-10-28] MEDS ORDERED: DIPHENHYDRAMINE 50MG/ML VIAL IV PRN ×3 (09:00→20:00)
[2019-10-28 12:00] VITALS: BP 126/88
[2019-10-28 16:00] VITALS: BP 158/89
[2019-10-28] MEDS ORDERED: DIPHENHYDRAMINE 50MG CAPSULE PO PRN (17:30)
[2019-10-28] MEDS ORDERED: OXYCODONE HCL/ACETAMINOPHEN 5/325MG TABLET PO PRN (17:30)
[2019-10-28] MEDS ORDERED: ALPR2TAB2 MT (17:35)
[2019-10-28 20:00] VITALS: BP 126/88
[2019-10-28] MEDS: PHENYTOIN SODIUM EXTENDED 100MG CAPSULE PO SCH (21:32)
[2019-10-28] MEDS: MORPHINE SULFATE 2 MG/ML CPJ (NOT FOR IM USE) IV PRN (21:33)
[2019-10-29] VITALS: BP 156/91
[2019-10-29 00:16] LABS: HEMATOCRIT. 24.2 % (36.0-48.0); HEMOGLOBIN. 8.4 g/dL (12.0-16.0); MEAN CORPUSCULAR VOLUME 92.3 fL (81.0-99.0); MEAN PLATELET VOLUME 7.5 fl (7.4-10.4); PLATELET 171 x1000/uL (130-400); RED BLOOD CELL COUNT 2.62 mill/uL (4.2-5.4); RED CELL DISTRIBUTION WIDTH 17.7 % (11.6-14.6)
[2019-10-29] MEDS: ALPRAZOLAM 0.5 MG TABLET PO PRN ×2 (01:34→10:27)
[2019-10-29] MEDS: MORPHINE SULFATE 2 MG/ML CPJ (NOT FOR IM USE) IV PRN ×3 (01:35→12:46)
[2019-10-29 04:00] VITALS: BP 151/93
[2019-10-29] MEDS: DIPHENHYDRAMINE 50MG/ML VIAL IV PRN ×2 (05:09→10:29)
[2019-10-29] MEDS: HYDRALAZINE HCL 100MG TABLET PO SCH ×2 (05:09→13:51)
[2019-10-29] MEDS: CALCIUM ACETATE 667MG CAPSULE PO SCH ×2 (06:46→08:49)
[2019-10-29] MEDS: OMEPRAZOLE 20MG CAPSULE EXTENDED RELEASE PO SCH (06:47)
[2019-10-29] MEDS: LEVOTHYROXINE SODIUM 100MCG TABLET PO SCH (06:47)
[2019-10-29 08:00] VITALS: BP 128/71
[2019-10-29] MEDS: THIAMINE HCL 100MG TABLET PO SCH (08:49)
[2019-10-29] MEDS: LOSARTAN POTASSIUM 100 MG TABLET PO SCH (08:49)
[2019-10-29] MEDS: FOLIC ACID 1MG TABLET PO SCH (08:49)
[2019-10-29 12:11] VITALS: BP 155/90
[2019-10-29 14:02] VITALS: BP 135/89
[2019-10-29 14:30] LABS: PLATELET ESTIMATE NORMAL
[2019-11-11] MEDS ORDERED: ALPR2TAB2 MT (14:27)
[2019-11-12] MEDS ORDERED: ALPR2TAB2 MT (13:40)
== END 2019-10-29 14:55 | disposition home or self-care (01) | DRG 811 ==
LOC: ER 13:15 → 6WST 19:06 → ENRESERV 22:49
PROVIDERS: ADMIT Internal Medicine; ATTEND Internal Medicine
PROC: 30233N1 Transfusion of Nonautologous Red Blood Cells into Peripheral Vein, Percutaneous Approach (ICD-10-PCS; 2019-10-27)
PROC: 5A1D70Z Performance of Urinary Filtration, Intermittent, Less than 6 Hours Per Day (ICD-10-PCS; principal; 2019-10-28)
DX: D64.9 Anemia, unspecified (principal); N18.6 End stage renal disease; N17.9 Acute kidney failure, unspecified; I13.2 Hypertensive heart and chronic kidney disease with heart failure and with stage 5 chronic kidney disease, or end stage renal disease; R18.8 Other ascites; D72.819 Decreased white blood cell count, unspecified; E03.9 Hypothyroidism, unspecified; F03.90 Unspecified dementia, unspecified severity, without behavioral disturbance, psychotic disturbance, mood disturbance, and anxiety; F10.10 Alcohol abuse, uncomplicated; F41.9 Anxiety disorder, unspecified; G40.909 Epilepsy, unspecified, not intractable, without status epilepticus; I50.9 Heart failure, unspecified; K29.70 Gastritis, unspecified, without bleeding; Z76.5 Malingerer [conscious simulation]; Z86.73 Personal history of transient ischemic attack (TIA), and cerebral infarction without residual deficits; Z91.19 Patient's noncompliance with other medical treatment and regimen; Z99.2 Dependence on renal dialysis; Z91.018 Allergy to other foods; Z79.01 Long term (current) use of anticoagulants; Z79.899 Other long term (current) drug therapy
CPT/HCPCS: 36415; 71045; 80053; 85025; 86850; 86900; 86920; 93005; 99285; J1200; J2270; P9016; Q0163

== ENCOUNTER 2019-11-05 13:15 | Emergency (ER) | payer MEDICARE, MEDICAID ==
[~2019-11-05] VITALS: Ht 167.6 cm; Wt 69.0 kg
[2019-11-05] MEDS ORDERED: MORPHINE SULFATE 4 MG/ML CPJ (NOT FOR IM USE) IV STA (13:32)
[2019-11-05] MEDS ORDERED: ONDANSETRON HCL 4MG/2ML INJ IV STA (13:32)
[2019-11-05] MEDS ORDERED: DIPHENHYDRAMINE 50MG/ML VIAL IV ONE (13:45)
[2019-11-05 14:00] LABS: BASOPHILS % 0.9 % (0.0-2.0); EOSINOPHILS % 1.3 % (0.0-5.0); HEMOGLOBIN. 7.1 g/dL (12.0-16.0); LYMPHOCYTES % 12.8 % (20.0-50.0); MEAN CORPUSCULAR VOLUME 93.3 fL (81.0-99.0); MEAN PLATELET VOLUME 8.2 fl (7.4-10.4); MONOCYTES % 12.1 % (2.0-8.0); NEUTROPHILS % 72.9 % (40.0-76.0); PLATELET 164 x1000/uL (130-400); RED BLOOD CELL COUNT 2.21 mill/uL (4.2-5.4)
[2019-11-05 14:04] LABS: CHLORIDE 94 mEq/L (98-107); HEMATOCRIT. 20.6 % (36.0-48.0)
[2019-11-05 14:06] LABS: INR 1.1; PARTIAL THROMBOPLASTIN TIME 30.4 sec (23.4-31.0)
[2019-11-05 15:27] VITALS: BP 133/64
== END 2019-11-05 15:32 | disposition home or self-care (01) ==
LOC: ER 13:26 → CANBEDREQ 16:47
DX: D63.1 Anemia in chronic kidney disease (principal); I13.2 Hypertensive heart and chronic kidney disease with heart failure and with stage 5 chronic kidney disease, or end stage renal disease; N18.6 End stage renal disease; I50.9 Heart failure, unspecified; G40.909 Epilepsy, unspecified, not intractable, without status epilepticus; Z76.0 Encounter for issue of repeat prescription; Z99.2 Dependence on renal dialysis; Z91.018 Allergy to other foods; Z91.010 Allergy to peanuts
CPT/HCPCS: 36415; 71045; 80053; 82962; 85025; 85610; 85730; 86850; 86900; 86901; 86920; 93005; 96374; 96375; 99285; J1200; J2270; J2405

== ENCOUNTER 2019-11-16 13:44 | Emergency (ER) | payer MEDICARE, MEDICAID ==
[~2019-11-16] VITALS: Ht 170.2 cm; Wt 55.0 kg
[~2019-11-16 13:44] MED LIST changes: -HYDR100T26 PO
[2019-11-16] MEDS ORDERED: ONDANSETRON 4MG ODT PO ONE (14:15)
[2019-11-16] MEDS ORDERED: HYDROCODONE/ACETAMINOPHEN 5/325MG TABLET PO ONE (14:15)
[2019-11-16 14:52] LABS: PROTHROMBIN TIME 10.7 sec (9.6-11.0)
[2019-11-16 14:55] LABS: HEMATOCRIT. 21.3 % (36.0-48.0); HEMOGLOBIN. 7.2 g/dL (12.0-16.0); MEAN CORPUSCULAR HEMOGLOBIN 31.9 pg (28.0-32.0); MEAN PLATELET VOLUME 7.2 fl (7.4-10.4); PLATELET 233 x1000/uL (130-400); RED BLOOD CELL COUNT 2.26 mill/uL (4.2-5.4); RED CELL DISTRIBUTION WIDTH 16.3 % (11.6-14.6)
[2019-11-16 15:18] LABS: PLATELET ESTIMATE NORMAL
[2019-11-16] MEDS ORDERED: LIDOCAINE HCL 1% 20ML VIAL (Pyxis) INJ ONE (15:42)
[2019-11-16] MEDS ORDERED: SODIUM BICARBONATE 4% (2.4MEQ) 5ML VIAL IV ONE (15:42)
[2019-11-16 15:50] VITALS: BP 139/87
[2019-11-16] MEDS ORDERED: CEFAZOLIN 1000MG PREMIX 50 ML IV ONE (15:57)
[2019-11-16 16:00] VITALS: BP 127/78
[2019-11-16] MEDS ORDERED: CEFAZOLIN 1000MG PREMIX 50 ML IV NR (16:00)
[2019-11-16 16:01] VITALS: BP 139/87
[2019-11-16 16:10] VITALS: BP 152/85
[2019-11-16 16:18] VITALS: BP_SYST 139; BP_SYST 152; BP_DIAS 85; BP_DIAS 87
[2019-11-16 16:47] VITALS: BP 159/96
== END 2019-11-16 17:16 | disposition home or self-care (01) ==
LOC: ER 13:44
DX: T82.41XA Breakdown (mechanical) of vascular dialysis catheter, initial encounter (principal); Y84.1 Kidney dialysis as the cause of abnormal reaction of the patient, or of later complication, without mention of misadventure at the time of the procedure; Y92.9 Unspecified place or not applicable; I11.0 Hypertensive heart disease with heart failure; I50.9 Heart failure, unspecified; D64.9 Anemia, unspecified; E05.90 Thyrotoxicosis, unspecified without thyrotoxic crisis or storm; N19 Unspecified kidney failure; Z99.2 Dependence on renal dialysis; Z86.73 Personal history of transient ischemic attack (TIA), and cerebral infarction without residual deficits
CPT/HCPCS: 36415; 71045; 77001; 80048; 85025; 85610; 85730; 96365; 99285; C1750; C1769; J0690; J1642; J3490; Q0162

== ENCOUNTER 2019-11-26 17:49 | Inpatient (IN) | payer MEDICARE, MEDICAID ==
[~2019-11-26] VITALS: Ht 170.2 cm; Wt 52.7 kg
[2019-11-26] MEDS ORDERED: ALBUTEROL (0.083%) 2.5MG/3ML NEB HHN STA (18:14)
[2019-11-26] MEDS ORDERED: ACETAMINOPHEN WITH CODEINE 300/30MG TABLET PO ONE (19:00)
[2019-11-26] MEDS ORDERED: DIPHENHYDRAMINE 25MG CAPSULE PO ONE (19:00)
[2019-11-26 19:17] LABS: BASOPHILS % 1.9 % (0.0-2.0); EOSINOPHILS % 3.7 % (0.0-5.0); HEMOGLOBIN. 7.9 g/dL (12.0-16.0); LYMPHOCYTES % 24.4 % (20.0-50.0); MEAN CORPUSCULAR HEMOGLOBIN 32.5 pg (28.0-32.0); MEAN PLATELET VOLUME 8.2 fl (7.4-10.4); MONOCYTES % 8.5 % (2.0-8.0); NEUTROPHILS % 61.5 % (40.0-76.0); PLATELET 212 x1000/uL (130-400); RED BLOOD CELL COUNT 2.44 mill/uL (4.2-5.4); RED CELL DISTRIBUTION WIDTH 16.4 % (11.6-14.6)
[2019-11-26 19:25] LABS: CHLORIDE 93 mEq/L (98-107)
[2019-11-26] MEDS ORDERED: CALCIUM GLUCONATE 1,000 MG in DEXT 5% WATER 100 ML IV ONE (19:45)
[2019-11-26] MEDS ORDERED: DEXTROSE 50% WATER 50ML SYRINGE IV ONE (19:45)
[2019-11-26] MEDS ORDERED: INSULIN REGULAR (HUMULIN R) 300UNITS/3ML IV ONE (19:45)
[2019-11-26] MEDS ORDERED: SODIUM BICARBONATE 8.4% 1 MEQ/ML 50ML SYR IV ONE (19:45)
[2019-11-26 22:05] VITALS: BP 147/97
[2019-11-27] VITALS (8 sets, daily range): BP systolic 135–165; BP diastolic 76–102
[2019-11-27] MEDS ORDERED: ALPRAZOLAM 0.5 MG TABLET PO PRN ×2 (01:00→07:00)
[2019-11-27] MEDS: HYDROCODONE/ACETAMINOPHEN 5/325MG TABLET PO PRN ×2 (03:58→18:59)
[2019-11-27] MEDS ORDERED: DIPHENHYDRAMINE 50MG CAPSULE PO PRN (04:00)
[2019-11-27] MEDS: OMEPRAZOLE 20MG CAPSULE EXTENDED RELEASE PO SCH ×2 (06:06→16:40)
[2019-11-27] MEDS: LEVOTHYROXINE SODIUM 100MCG TABLET PO SCH (06:06)
[2019-11-27 08:43] LABS: HEMATOCRIT. 22.3 % (36.0-48.0); HEMOGLOBIN. 7.7 g/dL (12.0-16.0); MEAN CORPUSCULAR VOLUME 92.7 fL (81.0-99.0); MEAN PLATELET VOLUME 7.9 fl (7.4-10.4); PLATELET 157 x1000/uL (130-400); RED CELL DISTRIBUTION WIDTH 16.2 % (11.6-14.6)
[2019-11-27] MEDS: LOSARTAN POTASSIUM 100 MG TABLET PO SCH (08:44)
[2019-11-27] MEDS: CALCIUM ACETATE 667MG CAPSULE PO SCH ×3 (08:44→16:40)
[2019-11-27] MEDS: FOLIC ACID/VITAMIN B COMP W-C TABLET PO SCH (08:45)
[2019-11-27] MEDS: ALPRAZOLAM 0.5 MG TABLET PO PRN ×2 (08:45→16:42)
[2019-11-27] MEDS: NIFEDIPINE XL 60MG TAB PO SCH (08:45)
[2019-11-27] MEDS: CARVEDILOL 12.5MG TABLET PO SCH ×2 (08:45→21:11)
[2019-11-27] MEDS ORDERED: LIDOCAINE HCL 1% 20ML VIAL (Pyxis) INJ ONE (11:58)
[2019-11-27] MEDS: DIPHENHYDRAMINE 50MG/ML VIAL IV PRN ×2 (12:23→21:11)
[2019-11-27] MEDS: PHENYTOIN SODIUM EXTENDED 100MG CAPSULE PO SCH (21:11)
[2019-11-28] VITALS (19 sets, daily range): BP systolic 95–155; BP diastolic 36–103
[2019-11-28] MEDS: ALPRAZOLAM 0.5 MG TABLET PO PRN ×3 (00:49→20:39)
[2019-11-28] MEDS: DIPHENHYDRAMINE 50MG/ML VIAL IV PRN ×2 (05:35→16:20)
[2019-11-28] MEDS: OMEPRAZOLE 20MG CAPSULE EXTENDED RELEASE PO SCH ×2 (06:16→16:20)
[2019-11-28] MEDS: LEVOTHYROXINE SODIUM 100MCG TABLET PO SCH (06:16)
[2019-11-28 07:56] LABS: PLATELET ESTIMATE NORMAL
[2019-11-28 08:01] LABS: MEAN CORPUSCULAR HEMOGLOBIN 32.3 pg (28.0-32.0); MEAN CORPUSCULAR VOLUME 94.2 fL (81.0-99.0); MEAN PLATELET VOLUME 7.9 fl (7.4-10.4); PLATELET 157 x1000/uL (130-400); RED BLOOD CELL COUNT 2.13 mill/uL (4.2-5.4); RED CELL DISTRIBUTION WIDTH 16.6 % (11.6-14.6)
[2019-11-28] MEDS: LOSARTAN POTASSIUM 100 MG TABLET PO SCH (08:06)
[2019-11-28] MEDS: CARVEDILOL 12.5MG TABLET PO SCH ×2 (08:07→20:39)
[2019-11-28] MEDS: FOLIC ACID/VITAMIN B COMP W-C TABLET PO SCH (08:07)
[2019-11-28] MEDS: NIFEDIPINE XL 60MG TAB PO SCH (08:07)
[2019-11-28] MEDS: CALCIUM ACETATE 667MG CAPSULE PO SCH ×3 (08:07→16:20)
[2019-11-28 08:14] LABS: HEMATOCRIT. 20.1 % (36.0-48.0); HEMOGLOBIN. 6.9 g/dL (12.0-16.0)
[2019-11-28] MEDS: HYDROMORPHONE HCL/PF 2MG/ML CPJ IV PRN ×2 (12:02→23:29)
[2019-11-28 14:05] LABS: PLATELET ESTIMATE NORMAL
[2019-11-28] MEDS: PHENYTOIN SODIUM EXTENDED 100MG CAPSULE PO SCH (20:38)
[2019-11-29] VITALS (7 sets, daily range): BP systolic 142–155; BP diastolic 85–103
[2019-11-29] MEDS: DIPHENHYDRAMINE 50MG/ML VIAL IV PRN (01:06)
[2019-11-29] MEDS: LEVOTHYROXINE SODIUM 100MCG TABLET PO SCH (06:03)
[2019-11-29] MEDS: OMEPRAZOLE 20MG CAPSULE EXTENDED RELEASE PO SCH (06:03)
[2019-11-29] MEDS: ALPRAZOLAM 0.5 MG TABLET PO PRN (06:04)
[2019-11-29 07:13] LABS: HEMOGLOBIN. 9.4 g/dL (12.0-16.0); MEAN CORPUSCULAR HEMOGLOBIN 32.2 pg (28.0-32.0); MEAN CORPUSCULAR VOLUME 91.9 fL (81.0-99.0); MEAN PLATELET VOLUME 8.3 fl (7.4-10.4); PLATELET 152 x1000/uL (130-400); RED BLOOD CELL COUNT 2.93 mill/uL (4.2-5.4)
[2019-11-29] MEDS: CALCIUM ACETATE 667MG CAPSULE PO SCH (08:12)
[2019-11-29] MEDS: LOSARTAN POTASSIUM 100 MG TABLET PO SCH (08:13)
[2019-11-29] MEDS: NIFEDIPINE XL 60MG TAB PO SCH (08:13)
[2019-11-29] MEDS: CARVEDILOL 12.5MG TABLET PO SCH (08:13)
[2019-11-29] MEDS: FOLIC ACID/VITAMIN B COMP W-C TABLET PO SCH (08:13)
[2019-11-29] MEDS ORDERED: ALPR2TAB2 MT ×2 (10:27→12:54)
[2019-11-29 19:18] LABS: PLATELET ESTIMATE NORMAL
== END 2019-11-29 13:50 | disposition home or self-care (01) | DRG 425 ==
LOC: ER 17:49 → 3WST 20:26 → EDBEDREQSVC 20:28 → EDBEDREQ 20:28 → ENRESERV 20:56
PROVIDERS: ADMIT Internal Medicine; ATTEND Internal Medicine
PROC: 02HV33Z Insertion of Infusion Device into Superior Vena Cava, Percutaneous Approach (ICD-10-PCS; principal; 2019-11-27)
PROC: B518ZZA Fluoroscopy of Superior Vena Cava, Guidance (ICD-10-PCS; 2019-11-27)
PROC: 5A1D70Z Performance of Urinary Filtration, Intermittent, Less than 6 Hours Per Day (ICD-10-PCS; 2019-11-27)
PROC: B548ZZA Ultrasonography of Superior Vena Cava, Guidance (ICD-10-PCS; 2019-11-27)
PROC: 5A1D70Z Performance of Urinary Filtration, Intermittent, Less than 6 Hours Per Day (ICD-10-PCS; 2019-11-28)
PROC: 30233N1 Transfusion of Nonautologous Red Blood Cells into Peripheral Vein, Percutaneous Approach (ICD-10-PCS; 2019-11-28)
DX: E87.5 Hyperkalemia (principal); I13.2 Hypertensive heart and chronic kidney disease with heart failure and with stage 5 chronic kidney disease, or end stage renal disease; E44.1 Mild protein-calorie malnutrition; E83.51 Hypocalcemia; N18.6 End stage renal disease; G40.909 Epilepsy, unspecified, not intractable, without status epilepticus; E87.1 Hypo-osmolality and hyponatremia; D64.9 Anemia, unspecified; I50.9 Heart failure, unspecified; R79.89 Other specified abnormal findings of blood chemistry; K76.9 Liver disease, unspecified; D72.819 Decreased white blood cell count, unspecified; E03.9 Hypothyroidism, unspecified; E78.5 Hyperlipidemia, unspecified; F10.10 Alcohol abuse, uncomplicated; F41.9 Anxiety disorder, unspecified; Z76.5 Malingerer [conscious simulation]; Z91.19 Patient's noncompliance with other medical treatment and regimen; Z99.2 Dependence on renal dialysis; Z68.1 Body mass index [BMI] 19.9 or less, adult; Z91.018 Allergy to other foods; Z91.010 Allergy to peanuts; R65.10 Systemic inflammatory response syndrome (SIRS) of non-infectious origin without acute organ dysfunction
CPT/HCPCS: 36415; 36573; 71045; 80048; 80053; 80061; 80185; 84100; 84132; 84443; 84484; 85025; 86850; 86900; 86920; 93005; 96374; 99291; C1725; J0610; J1170; J1200; J1815; J3490; J7060; P9016; Q0163

== ENCOUNTER 2019-12-08 21:18 | Inpatient (IN) | payer MEDICARE, MEDICAID ==
[~2019-12-08] VITALS: Ht 170.2 cm; Wt 58.1 kg
[2019-12-08 23:54] LABS: BASOPHILS % 1.2 % (0.0-2.0); EOSINOPHILS % 1.6 % (0.0-5.0); HEMATOCRIT. 22.8 % (36.0-48.0); HEMOGLOBIN. 7.8 g/dL (12.0-16.0); LYMPHOCYTES % 17.3 % (20.0-50.0); MEAN CORPUSCULAR HEMOGLOBIN 32.1 pg (28.0-32.0); MEAN CORPUSCULAR VOLUME 93.8 fL (81.0-99.0); MEAN PLATELET VOLUME 7.7 fl (7.4-10.4); MONOCYTES % 7.7 % (2.0-8.0); NEUTROPHILS % 72.2 % (40.0-76.0); PLATELET 155 x1000/uL (130-400); RED BLOOD CELL COUNT 2.43 mill/uL (4.2-5.4); RED CELL DISTRIBUTION WIDTH 15.4 % (11.6-14.6)
[2019-12-08 23:55] LABS: CHLORIDE 101 mEq/L (98-107)
[2019-12-08 23:59] LABS: ETHANOL BLOOD 133 mg/dL
[2019-12-09 00:06] LABS: INR 1.1; PARTIAL THROMBOPLASTIN TIME 32.9 sec (23.4-31.0)
[2019-12-09] MEDS ORDERED: ACETAMINOPHEN 500MG TABLET PO NR (02:45)
[2019-12-09] MEDS ORDERED: DEXTROSE 50% WATER 50ML SYRINGE IV NR (02:45)
[2019-12-09] MEDS ORDERED: ALPRAZOLAM 0.5 MG TABLET PO PRN (05:45)
[2019-12-09 08:40] VITALS: BP 195/192
[2019-12-09] MEDS ORDERED: MORPHINE SULFATE 2 MG/ML CPJ (NOT FOR IM USE) IV PRN (09:15)
[2019-12-09] MEDS ORDERED: CLONIDINE 0.2MG TABLET PO NR (09:15)
[2019-12-09] MEDS ORDERED: CLONIDINE 0.1MG TABLET PO PRN (10:00)
[2019-12-09] MEDS ORDERED: HYDROCODONE/ACETAMINOPHEN 10/325MG TABLET PO PRN (10:00)
[2019-12-09] MEDS ORDERED: ACETAMINOPHEN 325MG TABLET PO PRN (10:00)
[2019-12-09] MEDS ORDERED: ONDANSETRON HCL 4MG/2ML INJ IV PRN (10:00)
[2019-12-09] MEDS: THIAMINE HCL 100MG TABLET PO SCH (10:48)
[2019-12-09] MEDS: LOSARTAN POTASSIUM 100 MG TABLET PO SCH (10:48)
[2019-12-09] MEDS: DIPHENHYDRAMINE 50MG/ML VIAL IV PRN ×2 (10:48→18:53)
[2019-12-09] MEDS: FOLIC ACID 1MG TABLET PO SCH (10:48)
[2019-12-09 12:00] VITALS: BP 164/100
[2019-12-09] MEDS ORDERED: DEXTROSE 50% WATER 50ML SYRINGE IV PRN (12:00)
[2019-12-09] MEDS: BLOOD SUGAR DIAGNOSTIC STRIP TEST SCH ×3 (12:43→21:54)
[2019-12-09] MEDS ORDERED: INSULIN LISPRO 100 UNITS/ML SUBCUT SCH (12:50)
[2019-12-09 13:28] VITALS: BP 195/123
[2019-12-09] MEDS: HYDROMORPHONE HCL/PF 2MG/ML CPJ IV PRN ×2 (13:42→22:04)
[2019-12-09] MEDS: ALPRAZOLAM 0.5 MG TABLET PO PRN (15:06)
[2019-12-09 16:00] VITALS: BP 151/91
[2019-12-09 20:00] VITALS: BP 150/109
[2019-12-09] MEDS ORDERED: EPOETIN ALFA 4000UNITS/ML VIAL SUBCUT SCH (21:00)
[2019-12-09] MEDS: PHENYTOIN SODIUM EXTENDED 100MG CAPSULE PO SCH (21:54)
[2019-12-10] VITALS: BP 159/103
[2019-12-10] MEDS: ALPRAZOLAM 0.5 MG TABLET PO PRN ×3 (00:28→16:57)
[2019-12-10] MEDS: DIPHENHYDRAMINE 50MG/ML VIAL IV PRN ×4 (03:11→18:34)
[2019-12-10 04:00] VITALS: BP 163/110
[2019-12-10] MEDS: HYDROMORPHONE HCL/PF 2MG/ML CPJ IV PRN ×4 (04:45→23:47)
[2019-12-10] MEDS: BLOOD SUGAR DIAGNOSTIC STRIP TEST SCH (06:31)
[2019-12-10] MEDS: LEVOTHYROXINE SODIUM 100MCG TABLET PO SCH (06:31)
[2019-12-10 08:00] VITALS: BP 169/105
[2019-12-10] MEDS: THIAMINE HCL 100MG TABLET PO SCH (08:20)
[2019-12-10] MEDS: LOSARTAN POTASSIUM 100 MG TABLET PO SCH (08:20)
[2019-12-10] MEDS: FOLIC ACID 1MG TABLET PO SCH (08:20)
[2019-12-10] MEDS: MULTIVITAMINS,THER W-MINERALS TABLET PO SCH (08:20)
[2019-12-10 09:45] LABS: EOSINOPHILS % 5.2 % (0.0-5.0); HEMATOCRIT. 23.3 % (36.0-48.0); HEMOGLOBIN. 8.2 g/dL (12.0-16.0); LYMPHOCYTES % 15.2 % (20.0-50.0); MEAN CORPUSCULAR HEMOGLOBIN 32.2 pg (28.0-32.0); MEAN CORPUSCULAR VOLUME 91.8 fL (81.0-99.0); MEAN PLATELET VOLUME 8.1 fl (7.4-10.4); MONOCYTES % 10.2 % (2.0-8.0); NEUTROPHILS % 68.4 % (40.0-76.0); PLATELET 139 x1000/uL (130-400); RED BLOOD CELL COUNT 2.53 mill/uL (4.2-5.4); RED CELL DISTRIBUTION WIDTH 15.2 % (11.6-14.6)
[2019-12-10] MEDS: HYDRALAZINE HCL 50MG TABLET PO SCH ×2 (09:52→20:58)
[2019-12-10] MEDS ORDERED: POTASSIUM CHLORIDE 20MEQ TABLET SR PO NR ×2 (11:15→17:30)
[2019-12-10] MEDS ORDERED: ALPR2TAB2 MT (11:43)
[2019-12-10 12:00] VITALS: BP 162/100
[2019-12-10] MEDS ORDERED: POTASSIUM CHLORIDE INJ 40 MEQ in DEXT 5% WATER 250 ML IV NR (15:00)
[2019-12-10 16:00] VITALS: BP 153/92
[2019-12-10 20:00] VITALS: BP 144/86
[2019-12-10] MEDS: PHENYTOIN SODIUM EXTENDED 100MG CAPSULE PO SCH (20:58)
[2019-12-11] VITALS: BP 153/98
[2019-12-11] MEDS: ALPRAZOLAM 0.5 MG TABLET PO PRN ×2 (01:24→08:57)
[2019-12-11] MEDS: DIPHENHYDRAMINE 50MG/ML VIAL IV PRN ×2 (02:40→09:55)
[2019-12-11 04:00] VITALS: BP 136/82
[2019-12-11] MEDS: LEVOTHYROXINE SODIUM 100MCG TABLET PO SCH (06:21)
[2019-12-11 06:54] LABS: BASOPHILS % 1.3 % (0.0-2.0); EOSINOPHILS % 6.9 % (0.0-5.0); HEMATOCRIT. 24.3 % (36.0-48.0); HEMOGLOBIN. 8.3 g/dL (12.0-16.0); LYMPHOCYTES % 25.3 % (20.0-50.0); MEAN CORPUSCULAR HEMOGLOBIN 32.3 pg (28.0-32.0); MEAN CORPUSCULAR VOLUME 94.1 fL (81.0-99.0); MEAN PLATELET VOLUME 8.2 fl (7.4-10.4); MONOCYTES % 13.2 % (2.0-8.0); NEUTROPHILS % 53.3 % (40.0-76.0); PLATELET 144 x1000/uL (130-400); RED BLOOD CELL COUNT 2.58 mill/uL (4.2-5.4); RED CELL DISTRIBUTION WIDTH 15.4 % (11.6-14.6)
[2019-12-11] MEDS ORDERED: DIPHENHYDRAMINE 50MG CAPSULE PO PRN (07:30)
[2019-12-11 08:00] VITALS: BP 134/87
[2019-12-11] MEDS: HYDRALAZINE HCL 50MG TABLET PO SCH (08:56)
[2019-12-11] MEDS: FOLIC ACID 1MG TABLET PO SCH (08:57)
[2019-12-11] MEDS: MULTIVITAMINS,THER W-MINERALS TABLET PO SCH (08:57)
[2019-12-11] MEDS: LOSARTAN POTASSIUM 100 MG TABLET PO SCH (08:57)
[2019-12-11] MEDS: THIAMINE HCL 100MG TABLET PO SCH (09:55)
[2019-12-11 11:40] VITALS: BP 115/90
[2019-12-11] MEDS ORDERED: HEPARIN SODIUM 1,000 UNIT/1ML VIAL IV NR (11:45)
[2019-12-11 12:00] VITALS: BP 115/90
== END 2019-12-11 13:00 | disposition home or self-care (01) | DRG 775 ==
LOC: ER 21:25 → 6WST 12-09 03:59 → ENRESERV 12-09 07:27
PROVIDERS: ADMIT Internal Medicine; ATTEND Internal Medicine
PROC: 5A1D70Z Performance of Urinary Filtration, Intermittent, Less than 6 Hours Per Day (ICD-10-PCS; principal; 2019-12-09)
PROC: 5A1D70Z Performance of Urinary Filtration, Intermittent, Less than 6 Hours Per Day (ICD-10-PCS; 2019-12-10)
PROC: 5A1D70Z Performance of Urinary Filtration, Intermittent, Less than 6 Hours Per Day (ICD-10-PCS; 2019-12-11)
DX: F10.129 Alcohol abuse with intoxication, unspecified (principal); I13.2 Hypertensive heart and chronic kidney disease with heart failure and with stage 5 chronic kidney disease, or end stage renal disease; E11.649 Type 2 diabetes mellitus with hypoglycemia without coma; E11.22 Type 2 diabetes mellitus with diabetic chronic kidney disease; N18.6 End stage renal disease; D63.8 Anemia in other chronic diseases classified elsewhere; E03.9 Hypothyroidism, unspecified; F41.9 Anxiety disorder, unspecified; G40.909 Epilepsy, unspecified, not intractable, without status epilepticus; R74.0 Nonspecific elevation of levels of transaminase and lactic acid dehydrogenase [LDH]; I50.20 Unspecified systolic (congestive) heart failure; Y90.6 Blood alcohol level of 120-199 mg/100 ml; Z76.5 Malingerer [conscious simulation]; Z91.19 Patient's noncompliance with other medical treatment and regimen; Z99.2 Dependence on renal dialysis; Z91.018 Allergy to other foods; Z79.899 Other long term (current) drug therapy
CPT/HCPCS: 36415; 71045; 80048; 80053; 80320; 82962; 83036; 83880; 84484; 85025; 93005; 99285; J0885; J1170; J1200; J1644; J2270; J3480; J7060; G0480

== ENCOUNTER 2019-12-19 17:59 | Inpatient (IN) | payer MEDICARE, MEDICAID ==
[~2019-12-19] VITALS: Ht 170.2 cm; Wt 58.1 kg
[2019-12-19] MEDS ORDERED: DIPHENHYDRAMINE 25MG CAPSULE PO ONE (20:00)
[2019-12-19] MEDS ORDERED: ACETAMINOPHEN 500MG TABLET PO ONE (20:00)
[2019-12-19 21:16] LABS: MEAN CORPUSCULAR HEMOGLOBIN 32.6 pg (28.0-32.0); MEAN CORPUSCULAR VOLUME 94.2 fL (81.0-99.0); MEAN PLATELET VOLUME 7.3 fl (7.4-10.4); PLATELET 116 x1000/uL (130-400); RED BLOOD CELL COUNT 1.97 mill/uL (4.2-5.4); RED CELL DISTRIBUTION WIDTH 15.9 % (11.6-14.6)
[2019-12-19 21:19] LABS: CHLORIDE 106 mEq/L (98-107)
[2019-12-19] MEDS ORDERED: LABETALOL HCL 20MG/4ML CARPUJECT IV ONE (21:30)
[2019-12-19] MEDS ORDERED: LORAZEPAM 1MG TABLET PO ONE (21:30)
[2019-12-19 21:36] LABS: HEMOGLOBIN. 6.4 g/dL (12.0-16.0)
[2019-12-19 21:37] LABS: HEMATOCRIT. 18.6 % (36.0-48.0)
[2019-12-19] MEDS ORDERED: LABETALOL 5MG/ML SYR 20 MG/4 ML SYRINGE IV NR (22:00)
[2019-12-19 22:08] LABS: PLATELET ESTIMATE DECREASED
[2019-12-20] MEDS ORDERED: DILTIAZEM HCL 5MG/ML 5ML VIAL IV ONE (01:15)
[2019-12-20] MEDS ORDERED: DIPHENHYDRAMINE 50MG CAPSULE PO PRN (02:15)
[2019-12-20] MEDS: MORPHINE SULFATE 2 MG/ML CPJ (NOT FOR IM USE) IV PRN ×4 (02:38→22:18)
[2019-12-20] MEDS: AMLODIPINE 10MG TABLET PO SCH (03:07)
[2019-12-20] MEDS ORDERED: LORAZEPAM 2MG/ML CPJ IV NR (04:00)
[2019-12-20] MEDS: HYDRALAZINE 20MG/ML VIAL IV PRN ×3 (04:39→19:12)
[2019-12-20] MEDS ORDERED: DIPHENHYDRAMINE 50MG/ML VIAL IV PRN (09:00)
[2019-12-20] MEDS: METOPROLOL TARTRATE 50MG TABLET PO SCH ×2 (09:17→20:20)
[2019-12-20] MEDS: LORAZEPAM 2MG/ML CPJ IV PRN ×2 (12:03→20:23)
[2019-12-20] MEDS ORDERED: HYDROCODONE/ACETAMINOPHEN 5/325MG TABLET PO PRN (16:45)
[2019-12-20] MEDS ORDERED: ONDANSETRON HCL 4MG/2ML INJ IV PRN (16:45)
[2019-12-20] MEDS ORDERED: CLONIDINE 0.1MG TABLET PO PRN (16:45)
[2019-12-20] MEDS ORDERED: DOCUSATE SODIUM 100MG CAPSULE PO PRN (16:45)
[2019-12-20] MEDS ORDERED: MAGNESIUM/ALUMINUM HYDROXIDE/SIMETHICONE 30ML UDC PO PRN (16:45)
[2019-12-20] MEDS ORDERED: ACETAMINOPHEN 325MG TABLET PO PRN (16:45)
[2019-12-20] MEDS: DIPHENHYDRAMINE 50MG/ML VIAL IV PRN (19:12)
[2019-12-20 20:40] VITALS: BP 176/109
[2019-12-20 23:19] VITALS: BP 176/109
[2019-12-20] MEDS: ALPRAZOLAM 0.5 MG TABLET PO PRN (23:46)
[2019-12-21] VITALS: BP 167/116
[2019-12-21] MEDS: MORPHINE SULFATE 2 MG/ML CPJ (NOT FOR IM USE) IV PRN ×5 (02:21→20:29)
[2019-12-21 04:00] VITALS: BP 158/106
[2019-12-21] MEDS: DIPHENHYDRAMINE 50MG/ML VIAL IV PRN ×3 (04:01→21:09)
[2019-12-21 07:06] LABS: HEMATOCRIT. 23.9 % (36.0-48.0); HEMOGLOBIN. 8.3 g/dL (12.0-16.0); MEAN CORPUSCULAR HEMOGLOBIN 32.4 pg (28.0-32.0); MEAN CORPUSCULAR VOLUME 93.6 fL (81.0-99.0); MEAN PLATELET VOLUME 7.9 fl (7.4-10.4); PLATELET 149 x1000/uL (130-400); RED BLOOD CELL COUNT 2.56 mill/uL (4.2-5.4); RED CELL DISTRIBUTION WIDTH 16.1 % (11.6-14.6)
[2019-12-21 07:37] LABS: PHOSPHORUS 3.7 mg/dL (2.5-4.9)
[2019-12-21 07:54] VITALS: BP 124/87
[2019-12-21] MEDS: ALPRAZOLAM 0.5 MG TABLET PO PRN ×3 (07:54→23:44)
[2019-12-21] MEDS: METOPROLOL TARTRATE 50MG TABLET PO SCH ×2 (11:23→20:27)
[2019-12-21] MEDS: AMLODIPINE 10MG TABLET PO SCH (11:23)
[2019-12-21 13:18] LABS: PLATELET ESTIMATE NORMAL
[2019-12-21 16:22] VITALS: BP 139/89
[2019-12-21 20:00] VITALS: BP 151/97
[2019-12-21 20:22] LABS: T4 FREE 0.76 ng/dL (0.76-1.46)
[2019-12-22] VITALS: BP 131/85
[2019-12-22] MEDS: MORPHINE SULFATE 2 MG/ML CPJ (NOT FOR IM USE) IV PRN ×3 (00:31→09:59)
[2019-12-22 04:00] VITALS: BP 133/87
[2019-12-22] MEDS: DIPHENHYDRAMINE 50MG/ML VIAL IV PRN (04:55)
[2019-12-22] MEDS ORDERED: LEVOTHYROXINE SODIUM 100MCG TABLET PO SCH (07:10)
[2019-12-22] MEDS ORDERED: LEVOTHYROXINE SODIUM 25MCG TABLET PO SCH (07:10)
[2019-12-22 07:35] LABS: EOSINOPHILS % 4.9 % (0.0-5.0); HEMATOCRIT. 24.3 % (36.0-48.0); HEMOGLOBIN. 8.4 g/dL (12.0-16.0); LYMPHOCYTES % 32.7 % (20.0-50.0); MEAN CORPUSCULAR HEMOGLOBIN 32.2 pg (28.0-32.0); MEAN CORPUSCULAR VOLUME 93.4 fL (81.0-99.0); MEAN PLATELET VOLUME 8.2 fl (7.4-10.4); NEUTROPHILS % 48.4 % (40.0-76.0); PLATELET 154 x1000/uL (130-400); RED CELL DISTRIBUTION WIDTH 15.9 % (11.6-14.6)
[2019-12-22 08:00] VITALS: BP 131/88
[2019-12-22 08:26] VITALS: BP 131/88
[2019-12-22] MEDS: AMLODIPINE 10MG TABLET PO SCH (08:32)
[2019-12-22] MEDS: METOPROLOL TARTRATE 50MG TABLET PO SCH (08:32)
[2019-12-22] MEDS: ALPRAZOLAM 0.5 MG TABLET PO PRN (08:32)
[2019-12-22] MEDS ORDERED: ALPR2TAB2 MT (10:01)
[2019-12-22 10:22] VITALS: BP 131/88
== END 2019-12-22 11:05 | disposition home or self-care (01) | DRG 194 ==
LOC: ER 17:59 → MICUSO 23:17 → 8WST 12-20 20:45
PROVIDERS: ADMIT Internal Medicine; ATTEND Internal Medicine
PROC: B54MZZA Ultrasonography of Right Upper Extremity Veins, Guidance (ICD-10-PCS; 2019-12-19)
PROC: 05HY33Z Insertion of Infusion Device into Upper Vein, Percutaneous Approach (ICD-10-PCS; 2019-12-19)
PROC: 30233N1 Transfusion of Nonautologous Red Blood Cells into Peripheral Vein, Percutaneous Approach (ICD-10-PCS; principal; 2019-12-20)
PROC: 5A1D70Z Performance of Urinary Filtration, Intermittent, Less than 6 Hours Per Day (ICD-10-PCS; 2019-12-20)
PROC: 5A1D70Z Performance of Urinary Filtration, Intermittent, Less than 6 Hours Per Day (ICD-10-PCS; 2019-12-21)
DX: I13.2 Hypertensive heart and chronic kidney disease with heart failure and with stage 5 chronic kidney disease, or end stage renal disease (principal); E87.70 Fluid overload, unspecified; I50.9 Heart failure, unspecified; N18.6 End stage renal disease; Z99.2 Dependence on renal dialysis; F41.9 Anxiety disorder, unspecified; E03.9 Hypothyroidism, unspecified; G47.00 Insomnia, unspecified; K76.9 Liver disease, unspecified; F10.20 Alcohol dependence, uncomplicated; G89.29 Other chronic pain; E87.2 Acidosis; D63.8 Anemia in other chronic diseases classified elsewhere; G40.909 Epilepsy, unspecified, not intractable, without status epilepticus; Z91.15 Patient's noncompliance with renal dialysis; Z91.14 Patient's other noncompliance with medication regimen; Z91.018 Allergy to other foods; Z79.01 Long term (current) use of anticoagulants; Z79.899 Other long term (current) drug therapy; E44.0 Moderate protein-calorie malnutrition; E83.51 Hypocalcemia
CPT/HCPCS: 36415; 71045; 80048; 80053; 83735; 83880; 84100; 84439; 84443; 84481; 84484; 85025; 86850; 86900; 86920; 93005; 93970; 99285; J0360; J1200; J2060; J2270; J3490; P9016; Q0163

== ENCOUNTER 2019-12-29 17:47 | Inpatient (IN) | payer MEDICARE, MEDICAID ==
[~2019-12-29] VITALS: Ht 167.6 cm; Wt 65.8 kg
[2019-12-29] MEDS ORDERED: ACETAMINOPHEN 325MG TABLET PO STA (18:30)
[2019-12-29 20:16] LABS: BASOPHILS % 0.9 % (0.0-2.0); HEMOGLOBIN. 7.1 g/dL (12.0-16.0); LYMPHOCYTES % 25.6 % (20.0-50.0); MEAN CORPUSCULAR HEMOGLOBIN 32.6 pg (28.0-32.0); MEAN CORPUSCULAR VOLUME 95.9 fL (81.0-99.0); MEAN PLATELET VOLUME 7.8 fl (7.4-10.4); MONOCYTES % 12.6 % (2.0-8.0); NEUTROPHILS % 57.9 % (40.0-76.0); PLATELET 209 x1000/uL (130-400); RED BLOOD CELL COUNT 2.19 mill/uL (4.2-5.4); RED CELL DISTRIBUTION WIDTH 16.8 % (11.6-14.6)
[2019-12-29 20:20] LABS: CHLORIDE 104 mEq/L (98-107)
[2019-12-29 20:24] LABS: INR 1.1; PARTIAL THROMBOPLASTIN TIME 32.4 sec (23.4-31.0)
[2019-12-29] MEDS ORDERED: ASPIRIN 81MG TABLET PO ONE (21:00)
[2019-12-30] MEDS ORDERED: LORAZEPAM 2MG/ML CPJ IV PRN (01:00)
[2019-12-30] MEDS: MORPHINE SULFATE 2 MG/ML CPJ (NOT FOR IM USE) IV PRN ×2 (01:45→08:25)
[2019-12-30 05:10] VITALS: BP 178/104
[2019-12-30 05:27] VITALS: BP 178/104
[2019-12-30] MEDS ORDERED: B50 GT (05:46)
[2019-12-30] MEDS ORDERED: DIPHENHYDRAMINE 50MG CAPSULE PO PRN (06:00)
[2019-12-30] MEDS ORDERED: ZOLPIDEM TARTRATE 5MG TABLET PO PRN (06:00)
[2019-12-30 08:00] VITALS: BP 199/117
[2019-12-30] MEDS: LOSARTAN POTASSIUM 100 MG TABLET PO SCH (08:25)
[2019-12-30] MEDS: CARVEDILOL 12.5MG TABLET PO SCH ×2 (08:25→22:37)
[2019-12-30] MEDS: FOLIC ACID/VITAMIN B COMP W-C TABLET PO SCH (08:25)
[2019-12-30] MEDS: LEVOTHYROXINE SODIUM 100MCG TABLET PO SCH (08:26)
[2019-12-30] MEDS: CLONIDINE 0.1MG TABLET PO PRN ×2 (09:13→13:37)
[2019-12-30] MEDS: ALPRAZOLAM 0.5 MG TABLET PO PRN ×2 (09:18→20:15)
[2019-12-30 12:00] VITALS: BP 164/92
[2019-12-30] MEDS: HYDROMORPHONE HCL/PF 2MG/ML CPJ IV PRN ×2 (12:32→18:44)
[2019-12-30] MEDS: HYDRALAZINE HCL 100MG TABLET PO SCH ×2 (13:44→22:38)
[2019-12-30 16:00] VITALS: BP 155/94
[2019-12-30 20:00] VITALS: BP 131/86
[2019-12-30] MEDS ORDERED: PHENYTOIN SODIUM EXTENDED 100MG CAPSULE PO SCH (21:00)
[2019-12-30] MEDS: DIPHENHYDRAMINE 50MG/ML VIAL IV PRN (23:39)
[2019-12-31] VITALS: BP 137/78
[2019-12-31] MEDS: HYDROMORPHONE HCL/PF 2MG/ML CPJ IV PRN ×3 (02:01→14:02)
[2019-12-31 04:00] VITALS: BP 150/91
[2019-12-31] MEDS: HYDRALAZINE HCL 100MG TABLET PO SCH ×2 (06:01→13:48)
[2019-12-31 07:01] LABS: HEMATOCRIT. 21.7 % (36.0-48.0); HEMOGLOBIN. 7.3 g/dL (12.0-16.0); MEAN CORPUSCULAR HEMOGLOBIN 32.2 pg (28.0-32.0); MEAN CORPUSCULAR VOLUME 95.2 fL (81.0-99.0); MEAN PLATELET VOLUME 7.6 fl (7.4-10.4); PLATELET 176 x1000/uL (130-400); RED BLOOD CELL COUNT 2.28 mill/uL (4.2-5.4); RED CELL DISTRIBUTION WIDTH 16.3 % (11.6-14.6)
[2019-12-31] MEDS: LEVOTHYROXINE SODIUM 100MCG TABLET PO SCH (07:20)
[2019-12-31 08:00] VITALS: BP 150/78
[2019-12-31] MEDS ORDERED: POTASSIUM CHLORIDE 20MEQ TABLET SR PO SCH (08:00)
[2019-12-31] MEDS: DIPHENHYDRAMINE 50MG/ML VIAL IV PRN (08:49)
[2019-12-31] MEDS: FOLIC ACID/VITAMIN B COMP W-C TABLET PO SCH (08:50)
[2019-12-31] MEDS: LOSARTAN POTASSIUM 100 MG TABLET PO SCH (08:50)
[2019-12-31] MEDS: CARVEDILOL 12.5MG TABLET PO SCH (08:50)
[2019-12-31] MEDS ORDERED: POTASSIUM CHLORIDE 8 MEQ TABLET.SA PO SCH (10:45)
[2019-12-31] MEDS: ALPRAZOLAM 0.5 MG TABLET PO PRN (11:55)
[2019-12-31 12:00] VITALS: BP 133/82
[2019-12-31 14:02] LABS: PLATELET ESTIMATE NORMAL
[2019-12-31] MEDS ORDERED: ALPR2TAB2 MT (14:30)
[2019-12-31 15:32] VITALS: BP 133/82
[2019-12-31] MEDS ORDERED: EPOETIN ALFA 4000UNITS/ML VIAL SUBCUT SCH (21:00)
== END 2019-12-31 15:55 | disposition home or self-care (01) | DRG 425 ==
LOC: ER 17:47 → MICUSO 22:06 → 6WST 12-30 03:23
PROVIDERS: ADMIT Internal Medicine; ATTEND Internal Medicine
PROC: 5A1D70Z Performance of Urinary Filtration, Intermittent, Less than 6 Hours Per Day (ICD-10-PCS; principal; 2019-12-30)
DX: E87.5 Hyperkalemia (principal); G40.909 Epilepsy, unspecified, not intractable, without status epilepticus; I50.9 Heart failure, unspecified; I13.2 Hypertensive heart and chronic kidney disease with heart failure and with stage 5 chronic kidney disease, or end stage renal disease; F41.9 Anxiety disorder, unspecified; N18.6 End stage renal disease; E87.6 Hypokalemia; D63.8 Anemia in other chronic diseases classified elsewhere; R07.9 Chest pain, unspecified; E03.9 Hypothyroidism, unspecified; R18.8 Other ascites; R74.0 Nonspecific elevation of levels of transaminase and lactic acid dehydrogenase [LDH]; F10.10 Alcohol abuse, uncomplicated; Z76.5 Malingerer [conscious simulation]; Z99.2 Dependence on renal dialysis; Z91.018 Allergy to other foods; Z71.41 Alcohol abuse counseling and surveillance of alcoholic; Z91.15 Patient's noncompliance with renal dialysis
CPT/HCPCS: 36415; 71045; 76700; 80048; 80053; 83880; 84484; 85025; 86850; 86900; 86920; 93005; 99285; J1170; J1200; J2060; J2270; Q0163

== ENCOUNTER 2020-01-06 11:02 | Inpatient (IN) | payer MEDICARE, MEDICAID ==
[~2020-01-06] VITALS: Ht 170.2 cm; Wt 59.9 kg
[~2020-01-06 11:02] MED LIST changes: +B50 GT; -NIFE-32 MT; -OMEP20CA14 PO; -PHEN100C12 PO
[2020-01-06] MEDS ORDERED: MORPHINE SULFATE 4 MG/ML CPJ (NOT FOR IM USE) IV STA (11:31)
[2020-01-06] MEDS ORDERED: ONDANSETRON HCL 4MG/2ML INJ IV STA (11:31)
[2020-01-06 12:04] LABS: BASOPHILS % 2.7 % (0.0-2.0); EOSINOPHILS % 5.5 % (0.0-5.0); LYMPHOCYTES % 28.4 % (20.0-50.0); MEAN CORPUSCULAR HEMOGLOBIN 31.9 pg (28.0-32.0); MEAN CORPUSCULAR VOLUME 93.9 fL (81.0-99.0); MEAN PLATELET VOLUME 7.3 fl (7.4-10.4); MONOCYTES % 11.6 % (2.0-8.0); NEUTROPHILS % 51.8 % (40.0-76.0); PLATELET 230 x1000/uL (130-400); RED BLOOD CELL COUNT 2.14 mill/uL (4.2-5.4); RED CELL DISTRIBUTION WIDTH 16.3 % (11.6-14.6)
[2020-01-06 12:12] LABS: INR 1.1; PROTHROMBIN TIME 11.8 sec (9.6-11.0)
[2020-01-06 12:23] LABS: HEMATOCRIT. 20.1 % (36.0-48.0); HEMOGLOBIN. 6.8 g/dL (12.0-16.0)
[2020-01-06 12:37] LABS: CHLORIDE 100 mEq/L (98-107)
[2020-01-06] MEDS ORDERED: DIPHENHYDRAMINE 25MG CAPSULE PO ONE (14:15)
[2020-01-06 16:10] VITALS: BP 154/89
[2020-01-06] MEDS ORDERED: HYDROCODONE/ACETAMINOPHEN 5/325MG TABLET PO PRN (17:15)
[2020-01-06 17:30] VITALS: BP 154/89
[2020-01-06 18:01] LABS: HEMATOCRIT 22.8 % (36.0-48.0); HEMOGLOBIN 7.7 g/dL (12.0-16.0)
[2020-01-06] MEDS: MORPHINE SULFATE 2 MG/ML CPJ (NOT FOR IM USE) IV PRN ×2 (18:05→22:21)
[2020-01-06] MEDS: ALPRAZOLAM 0.5 MG TABLET PO PRN (18:52)
[2020-01-06] MEDS: CALCIUM ACETATE 667MG CAPSULE PO SCH (18:53)
[2020-01-06 20:00] VITALS: BP 127/75
[2020-01-06] MEDS: PHENYTOIN SODIUM EXTENDED 100MG CAPSULE PO SCH (20:49)
[2020-01-06] MEDS: DIPHENHYDRAMINE 50MG CAPSULE PO PRN (20:49)
[2020-01-06] MEDS: CARVEDILOL 12.5MG TABLET PO SCH (20:55)
[2020-01-06] MEDS: ZOLPIDEM TARTRATE 5MG TABLET PO PRN (22:22)
[2020-01-07] VITALS: BP 160/98
[2020-01-07] MEDS: MORPHINE SULFATE 2 MG/ML CPJ (NOT FOR IM USE) IV PRN ×4 (03:17→20:23)
[2020-01-07] MEDS: ALPRAZOLAM 0.5 MG TABLET PO PRN ×2 (03:31→12:01)
[2020-01-07 04:00] VITALS: BP 154/91
[2020-01-07] MEDS: LEVOTHYROXINE SODIUM 100MCG TABLET PO SCH (07:10)
[2020-01-07 08:00] VITALS: BP 158/101
[2020-01-07] MEDS: CARVEDILOL 12.5MG TABLET PO SCH ×2 (09:00→20:23)
[2020-01-07] MEDS: LOSARTAN POTASSIUM 100 MG TABLET PO SCH (09:00)
[2020-01-07] MEDS: CALCIUM ACETATE 667MG CAPSULE PO SCH ×3 (09:16→18:24)
[2020-01-07] MEDS: FOLIC ACID/VITAMIN B COMP W-C TABLET PO SCH (09:16)
[2020-01-07 10:08] LABS: BASOPHILS % 0.4 % (0.0-2.0); EOSINOPHILS % 5.9 % (0.0-5.0); HEMATOCRIT. 23.3 % (36.0-48.0); HEMOGLOBIN. 7.6 g/dL (12.0-16.0); LYMPHOCYTES % 31.7 % (20.0-50.0); MEAN CORPUSCULAR HEMOGLOBIN 32.3 pg (28.0-32.0); MEAN CORPUSCULAR VOLUME 98.5 fL (81.0-99.0); MEAN PLATELET VOLUME 7.7 fl (7.4-10.4); MONOCYTES % 13.7 % (2.0-8.0); NEUTROPHILS % 48.3 % (40.0-76.0); PLATELET 217 x1000/uL (130-400); RED BLOOD CELL COUNT 2.37 mill/uL (4.2-5.4)
[2020-01-07] MEDS: DIPHENHYDRAMINE 50MG CAPSULE PO PRN (11:49)
[2020-01-07] MEDS: HYDRALAZINE HCL 50MG TABLET PO SCH ×2 (14:00→22:00)
[2020-01-07 16:00] VITALS: BP 172/107
[2020-01-07 20:12] VITALS: BP 183/114
[2020-01-07] MEDS: PHENYTOIN SODIUM EXTENDED 100MG CAPSULE PO SCH (20:22)
[2020-01-07] MEDS: DIPHENHYDRAMINE 50MG/ML VIAL IV PRN (21:40)
[2020-01-08] VITALS: BP 168/107
[2020-01-08] MEDS: MORPHINE SULFATE 2 MG/ML CPJ (NOT FOR IM USE) IV PRN ×5 (01:04→22:03)
[2020-01-08] MEDS: ALPRAZOLAM 0.5 MG TABLET PO PRN ×3 (02:21→19:01)
[2020-01-08 04:00] VITALS: BP 186/114
[2020-01-08] MEDS: ZOLPIDEM TARTRATE 5MG TABLET PO PRN (04:35)
[2020-01-08] MEDS: HYDRALAZINE HCL 50MG TABLET PO SCH (05:49)
[2020-01-08] MEDS: LEVOTHYROXINE SODIUM 100MCG TABLET PO SCH (06:25)
[2020-01-08] MEDS: DIPHENHYDRAMINE 50MG/ML VIAL IV PRN ×3 (06:33→20:31)
[2020-01-08 07:10] LABS: MEAN CORPUSCULAR HEMOGLOBIN 32.5 pg (28.0-32.0); MEAN CORPUSCULAR VOLUME 95.8 fL (81.0-99.0); MEAN PLATELET VOLUME 7.6 fl (7.4-10.4); PLATELET 177 x1000/uL (130-400); RED BLOOD CELL COUNT 2.14 mill/uL (4.2-5.4); RED CELL DISTRIBUTION WIDTH 15.7 % (11.6-14.6)
[2020-01-08 07:57] LABS: HEMATOCRIT. 20.5 % (36.0-48.0)
[2020-01-08 08:00] VITALS: BP 195/118
[2020-01-08] MEDS: LOSARTAN POTASSIUM 100 MG TABLET PO SCH (08:39)
[2020-01-08] MEDS: FOLIC ACID/VITAMIN B COMP W-C TABLET PO SCH (08:39)
[2020-01-08] MEDS: CARVEDILOL 12.5MG TABLET PO SCH ×2 (08:39→20:31)
[2020-01-08] MEDS: CALCIUM ACETATE 667MG CAPSULE PO SCH ×3 (08:39→17:47)
[2020-01-08 11:23] LABS: PLATELET ESTIMATE NORMAL
[2020-01-08 12:15] VITALS: BP 158/92
[2020-01-08] MEDS ORDERED: CLONIDINE 0.1MG TABLET PO PRN (13:45)
[2020-01-08] MEDS: HYDRALAZINE HCL 100MG TABLET PO SCH ×2 (14:08→22:00)
[2020-01-08 16:30] VITALS: BP 184/114
[2020-01-08 20:00] VITALS: BP 189/107
[2020-01-08] MEDS: PHENYTOIN SODIUM EXTENDED 100MG CAPSULE PO SCH (20:30)
[2020-01-09] VITALS: BP 175/103
[2020-01-09] MEDS: ZOLPIDEM TARTRATE 5MG TABLET PO PRN (01:06)
[2020-01-09] MEDS: MORPHINE SULFATE 2 MG/ML CPJ (NOT FOR IM USE) IV PRN ×4 (02:26→16:35)
[2020-01-09] MEDS: DIPHENHYDRAMINE 50MG/ML VIAL IV PRN ×3 (03:31→15:43)
[2020-01-09 04:00] VITALS: BP 182/108
[2020-01-09] MEDS: HYDRALAZINE HCL 100MG TABLET PO SCH ×2 (06:45→13:41)
[2020-01-09] MEDS: LEVOTHYROXINE SODIUM 100MCG TABLET PO SCH (06:47)
[2020-01-09 08:00] VITALS: BP 184/100
[2020-01-09] MEDS: FOLIC ACID/VITAMIN B COMP W-C TABLET PO SCH (08:33)
[2020-01-09] MEDS: CALCIUM ACETATE 667MG CAPSULE PO SCH ×3 (08:33→17:50)
[2020-01-09] MEDS: LOSARTAN POTASSIUM 100 MG TABLET PO SCH (08:34)
[2020-01-09] MEDS: CARVEDILOL 12.5MG TABLET PO SCH (08:34)
[2020-01-09 10:17] LABS: BASOPHILS % 0.8 % (0.0-2.0); HEMATOCRIT. 25.3 % (36.0-48.0); LYMPHOCYTES % 12.7 % (20.0-50.0); MEAN CORPUSCULAR HEMOGLOBIN 32.4 pg (28.0-32.0); MEAN CORPUSCULAR VOLUME 94.5 fL (81.0-99.0); MEAN PLATELET VOLUME 7.9 fl (7.4-10.4); NEUTROPHILS % 68.5 % (40.0-76.0); PLATELET 171 x1000/uL (130-400); RED BLOOD CELL COUNT 2.67 mill/uL (4.2-5.4); RED CELL DISTRIBUTION WIDTH 16.9 % (11.6-14.6)
[2020-01-09 10:28] LABS: HEMOGLOBIN. 8.7 g/dL (12.0-16.0)
[2020-01-09] MEDS: ALPRAZOLAM 0.5 MG TABLET PO PRN (11:22)
[2020-01-09 12:30] VITALS: BP 162/103
[2020-01-09] MEDS ORDERED: ALPR2TAB2 MT (12:43)
[2020-01-09] MEDS ORDERED: CLONIDINE 0.1MG TABLET PO NR (12:45)
[2020-01-09 16:00] VITALS: BP 189/115
[2020-01-09 16:35] VITALS: BP 189/115
== END 2020-01-09 17:55 | disposition left against medical advice (07) | DRG 194 ==
LOC: ER 11:02 → EDBEDREQ 13:25 → 6WST 14:12 → EDBEDREQ 14:14 → ENRESERV 15:28
PROVIDERS: ADMIT Internal Medicine; ATTEND Internal Medicine
PROC: 30233N1 Transfusion of Nonautologous Red Blood Cells into Peripheral Vein, Percutaneous Approach (ICD-10-PCS; principal; 2020-01-06)
PROC: B54NZZA Ultrasonography of Left Upper Extremity Veins, Guidance (ICD-10-PCS; 2020-01-06)
PROC: 05HY33Z Insertion of Infusion Device into Upper Vein, Percutaneous Approach (ICD-10-PCS; 2020-01-06)
PROC: 5A1D70Z Performance of Urinary Filtration, Intermittent, Less than 6 Hours Per Day (ICD-10-PCS; 2020-01-07)
PROC: 5A1D70Z Performance of Urinary Filtration, Intermittent, Less than 6 Hours Per Day (ICD-10-PCS; 2020-01-09)
DX: I13.2 Hypertensive heart and chronic kidney disease with heart failure and with stage 5 chronic kidney disease, or end stage renal disease (principal); D63.8 Anemia in other chronic diseases classified elsewhere; N18.6 End stage renal disease; R18.8 Other ascites; G40.909 Epilepsy, unspecified, not intractable, without status epilepticus; E03.9 Hypothyroidism, unspecified; F10.10 Alcohol abuse, uncomplicated; F41.9 Anxiety disorder, unspecified; G89.29 Other chronic pain; R74.0 Nonspecific elevation of levels of transaminase and lactic acid dehydrogenase [LDH]; I50.9 Heart failure, unspecified; Z99.2 Dependence on renal dialysis; Z91.19 Patient's noncompliance with other medical treatment and regimen; Z98.891 History of uterine scar from previous surgery; Z76.5 Malingerer [conscious simulation]; Z71.41 Alcohol abuse counseling and surveillance of alcoholic; Z91.018 Allergy to other foods
CPT/HCPCS: 36415; 80048; 80053; 85014; 85018; 85025; 86850; 86900; 86920; 93005; 99285; J1200; J2270; J2405; P9016; Q0163

== ENCOUNTER 2020-01-21 17:00 | Inpatient (IN) | payer MEDICARE, MEDICAID ==
[~2020-01-21] VITALS: Ht 170.2 cm; Wt 58.5 kg
[2020-01-21] MEDS ORDERED: ONDANSETRON HCL 4MG/2ML INJ IV ONE (19:00)
[2020-01-21 19:57] LABS: BASOPHILS % 1.7 % (0.0-2.0); EOSINOPHILS % 4.5 % (0.0-5.0); LYMPHOCYTES % 33.4 % (20.0-50.0); MEAN CORPUSCULAR HEMOGLOBIN 32.4 pg (28.0-32.0); MEAN CORPUSCULAR VOLUME 94.1 fL (81.0-99.0); MEAN PLATELET VOLUME 7.8 fl (7.4-10.4); MONOCYTES % 14.5 % (2.0-8.0); NEUTROPHILS % 45.9 % (40.0-76.0); PLATELET 210 x1000/uL (130-400); RED BLOOD CELL COUNT 2.13 mill/uL (4.2-5.4); RED CELL DISTRIBUTION WIDTH 17.5 % (11.6-14.6)
[2020-01-21 20:05] LABS: CHLORIDE 99 mEq/L (98-107)
[2020-01-21] MEDS ORDERED: MORPHINE SULFATE 4 MG/ML CPJ (NOT FOR IM USE) IV ONE (20:15)
[2020-01-21] MEDS ORDERED: DIPHENHYDRAMINE 50MG/ML VIAL IV ONE (20:15)
[2020-01-21 20:20] LABS: HEMOGLOBIN. 6.9 g/dL (12.0-16.0)
[2020-01-21] MEDS ORDERED: DEXTROSE 50% WATER 50ML SYRINGE IV ONE ×2 (20:49→21:00)
[2020-01-21 23:00] VITALS: BP 181/104
[2020-01-21] MEDS ORDERED: DIPHENHYDRAMINE 50MG CAPSULE PO ONE (23:30)
[2020-01-22] VITALS (11 sets, daily range): BP systolic 143–181; BP diastolic 80–106
[2020-01-22] MEDS: ALPRAZOLAM 0.5 MG TABLET PO PRN ×3 (00:03→17:23)
[2020-01-22] MEDS: HYDROCODONE/ACETAMINOPHEN 5/325MG TABLET PO PRN ×2 (00:04→07:11)
[2020-01-22 00:35] LABS: PHOSPHORUS 4.9 mg/dL (2.5-4.9)
[2020-01-22] MEDS: LEVOTHYROXINE SODIUM 100MCG TABLET PO SCH (06:18)
[2020-01-22] MEDS ORDERED: CALCIUM ACETATE 667MG CAPSULE PO ONE (07:40)
[2020-01-22] MEDS: PHENYTOIN SODIUM EXTENDED 100MG CAPSULE PO SCH (08:52)
[2020-01-22] MEDS: CALCIUM ACETATE 667MG CAPSULE PO SCH (08:52)
[2020-01-22] MEDS: DIPHENHYDRAMINE 50MG CAPSULE PO PRN ×2 (08:52→20:30)
[2020-01-22] MEDS: LOSARTAN POTASSIUM 100 MG TABLET PO SCH (08:52)
[2020-01-22] MEDS: FOLIC ACID/VITAMIN B COMP W-C TABLET PO SCH (08:53)
[2020-01-22] MEDS: CARVEDILOL 12.5MG TABLET PO SCH ×3 (08:53→20:30)
[2020-01-22] MEDS ORDERED: PHENYTOIN SODIUM EXTENDED 100MG CAPSULE PO ONE (09:00)
[2020-01-22] MEDS ORDERED: FOLIC ACID/VITAMIN B COMP W-C TABLET PO SCH (09:00)
[2020-01-22] MEDS ORDERED: LOSARTAN POTASSIUM 100 MG TABLET PO SCH (09:00)
[2020-01-22] MEDS ORDERED: CARVEDILOL 12.5MG TABLET PO ONE (09:00)
[2020-01-22] MEDS ORDERED: HEPARIN SODIUM 1,000 UNIT/1ML VIAL IV NR (10:45)
[2020-01-22] MEDS: HYDROMORPHONE HCL/PF 2MG/ML CPJ IV PRN ×2 (13:41→21:42)
[2020-01-22] MEDS ORDERED: HYDROCODONE/ACETAMINOPHEN 5/325MG TABLET PO PRN (15:30)
[2020-01-22] MEDS ORDERED: LEVOTHYROXINE SODIUM 100MCG TABLET PO ONE (18:00)
[2020-01-22] MEDS: HYDRALAZINE HCL 50MG TABLET PO SCH (20:30)
[2020-01-22] MEDS ORDERED: ONDANSETRON HCL 4MG/2ML INJ IV PRN (23:15)
[2020-01-23] VITALS: BP 175/107
[2020-01-23] MEDS: ALPRAZOLAM 0.5 MG TABLET PO PRN ×2 (01:24→11:02)
[2020-01-23] MEDS: AMLODIPINE 10MG TABLET PO SCH ×2 (01:31→08:38)
[2020-01-23] MEDS: CLONIDINE 0.1MG TABLET PO PRN ×2 (01:31→05:33)
[2020-01-23 04:00] VITALS: BP 165/100
[2020-01-23] MEDS: DIPHENHYDRAMINE 50MG CAPSULE PO PRN (04:58)
[2020-01-23] MEDS: LEVOTHYROXINE SODIUM 100MCG TABLET PO SCH (05:29)
[2020-01-23] MEDS: HYDROMORPHONE HCL/PF 2MG/ML CPJ IV PRN (05:33)
[2020-01-23 06:46] LABS: HEMATOCRIT. 30.8 % (36.0-48.0); HEMOGLOBIN. 10.5 g/dL (12.0-16.0); MEAN CORPUSCULAR HEMOGLOBIN 32.4 pg (28.0-32.0); MEAN CORPUSCULAR VOLUME 94.6 fL (81.0-99.0); MEAN PLATELET VOLUME 7.1 fl (7.4-10.4); PLATELET 119 x1000/uL (130-400); RED BLOOD CELL COUNT 3.26 mill/uL (4.2-5.4); RED CELL DISTRIBUTION WIDTH 15.7 % (11.6-14.6)
[2020-01-23] MEDS ORDERED: OMEPRAZOLE 20MG CAPSULE EXTENDED RELEASE PO SCH (07:10)
[2020-01-23 07:44] LABS: CHLORIDE 99 mEq/L (98-107)
[2020-01-23 08:00] VITALS: BP 140/89
[2020-01-23] MEDS: FOLIC ACID/VITAMIN B COMP W-C TABLET PO SCH (08:37)
[2020-01-23] MEDS: CALCIUM ACETATE 667MG CAPSULE PO SCH (08:37)
[2020-01-23] MEDS: PHENYTOIN SODIUM EXTENDED 100MG CAPSULE PO SCH (08:37)
[2020-01-23] MEDS: HYDRALAZINE HCL 50MG TABLET PO SCH (08:38)
[2020-01-23] MEDS: LOSARTAN POTASSIUM 100 MG TABLET PO SCH (08:38)
[2020-01-23] MEDS: CARVEDILOL 12.5MG TABLET PO SCH (08:38)
[2020-01-23 12:00] VITALS: BP 110/73
[2020-01-23] MEDS ORDERED: ALPR2TAB2 MT (12:58)
[2020-01-23 13:40] VITALS: BP 110/73
[2020-01-23 13:44] LABS: PLATELET ESTIMATE DECREASED
[2020-01-24] MEDS ORDERED: EPOETIN ALFA 10000UNITS/ML VIAL SUBCUT SCH (21:00)
== END 2020-01-23 14:20 | disposition home or self-care (01) | DRG 425 ==
LOC: ER 17:00 → 8WST 21:23 → ENRESERV 22:00 → 8WST 23:54
PROVIDERS: ADMIT Internal Medicine; ATTEND Internal Medicine
PROC: 5A1D70Z Performance of Urinary Filtration, Intermittent, Less than 6 Hours Per Day (ICD-10-PCS; 2020-01-21)
PROC: 30233N1 Transfusion of Nonautologous Red Blood Cells into Peripheral Vein, Percutaneous Approach (ICD-10-PCS; principal; 2020-01-22)
PROC: 5A1D70Z Performance of Urinary Filtration, Intermittent, Less than 6 Hours Per Day (ICD-10-PCS; 2020-01-23)
DX: E87.5 Hyperkalemia (principal); I13.2 Hypertensive heart and chronic kidney disease with heart failure and with stage 5 chronic kidney disease, or end stage renal disease; D63.8 Anemia in other chronic diseases classified elsewhere; N18.6 End stage renal disease; R18.8 Other ascites; E03.9 Hypothyroidism, unspecified; F10.10 Alcohol abuse, uncomplicated; E16.2 Hypoglycemia, unspecified; G40.909 Epilepsy, unspecified, not intractable, without status epilepticus; F41.9 Anxiety disorder, unspecified; R74.0 Nonspecific elevation of levels of transaminase and lactic acid dehydrogenase [LDH]; I50.9 Heart failure, unspecified; K29.70 Gastritis, unspecified, without bleeding; Z91.19 Patient's noncompliance with other medical treatment and regimen; Z99.2 Dependence on renal dialysis; Z76.5 Malingerer [conscious simulation]; Z91.018 Allergy to other foods; Z88.8 Allergy status to other drugs, medicaments and biological substances; Z79.1 Long term (current) use of non-steroidal anti-inflammatories (NSAID); Z79.899 Other long term (current) drug therapy; Z71.41 Alcohol abuse counseling and surveillance of alcoholic
CPT/HCPCS: 36415; 71045; 80053; 80185; 82962; 83880; 84100; 84443; 84484; 85025; 86850; 86900; 86920; 93005; 96374; 99285; J1170; J1200; J1644; J2270; J2405; P9016; Q0163

== ENCOUNTER 2020-01-29 21:25 | Emergency (ER) | payer MEDICARE, MEDICAID ==
[~2020-01-29] VITALS: Ht 162.6 cm; Wt 59.0 kg
[2020-01-29 21:31] VITALS: BP 167/107
[2020-01-29] MEDS ORDERED: ACETAMINOPHEN 325MG TABLET PO STA (23:59)
[2020-01-30 01:38] LABS: CHLORIDE 107 mEq/L (98-107)
[2020-01-30 01:52] LABS: HEMATOCRIT. 27.5 % (36.0-48.0); HEMOGLOBIN. 9.2 g/dL (12.0-16.0); MEAN CORPUSCULAR HEMOGLOBIN 32.1 pg (28.0-32.0); MEAN CORPUSCULAR VOLUME 96.3 fL (81.0-99.0); MEAN PLATELET VOLUME 7.5 fl (7.4-10.4); PLATELET 135 x1000/uL (130-400); RED BLOOD CELL COUNT 2.86 mill/uL (4.2-5.4); RED CELL DISTRIBUTION WIDTH 16.9 % (11.6-14.6)
[2020-01-30] MEDS ORDERED: ONDANSETRON 4MG ODT PO ONE (03:00)
[2020-01-30 05:21] LABS: PLATELET ESTIMATE NORMAL
== END 2020-01-30 03:25 | disposition home or self-care (01) ==
LOC: ER 21:25
DX: M54.5 Low back pain (principal); G89.29 Other chronic pain; I13.2 Hypertensive heart and chronic kidney disease with heart failure and with stage 5 chronic kidney disease, or end stage renal disease; N18.6 End stage renal disease; I50.9 Heart failure, unspecified; G40.909 Epilepsy, unspecified, not intractable, without status epilepticus; E03.9 Hypothyroidism, unspecified; D63.1 Anemia in chronic kidney disease; Z99.2 Dependence on renal dialysis; Z98.890 Other specified postprocedural states; Z91.018 Allergy to other foods; Z91.010 Allergy to peanuts
CPT/HCPCS: 36415; 71045; 80053; 85025; 93005; 99285; Q0162

== ENCOUNTER 2020-02-02 13:41 | Inpatient (IN) | payer MEDICARE, MEDICAID ==
[~2020-02-02] VITALS: Ht 167.6 cm; Wt 52.6 kg
[2020-02-02] MEDS ORDERED: MORPHINE SULFATE 4 MG/ML CPJ (NOT FOR IM USE) IV ONE (16:45)
[2020-02-02] MEDS ORDERED: ONDANSETRON HCL 4MG/2ML INJ IV ONE (16:45)
[2020-02-02 16:47] LABS: CHLORIDE 98 mEq/L (98-107); EOSINOPHILS % 3.9 % (0.0-5.0); HEMATOCRIT. 24.3 % (36.0-48.0); HEMOGLOBIN. 8.2 g/dL (12.0-16.0); MEAN CORPUSCULAR HEMOGLOBIN 32.9 pg (28.0-32.0); MEAN PLATELET VOLUME 7.5 fl (7.4-10.4); NEUTROPHILS % 51.1 % (40.0-76.0); PLATELET 207 x1000/uL (130-400); RED BLOOD CELL COUNT 2.48 mill/uL (4.2-5.4); RED CELL DISTRIBUTION WIDTH 16.8 % (11.6-14.6)
[2020-02-02 16:50] LABS: INR 1.1; PROTHROMBIN TIME 11.3 sec (9.6-11.0)
[2020-02-02] MEDS ORDERED: DEXTROSE 50% WATER 50ML SYRINGE IV ONE (17:15)
[2020-02-02] MEDS ORDERED: ALPRAZOLAM 0.5 MG TABLET PO PRN (19:21)
[2020-02-02] MEDS: DIPHENHYDRAMINE 50MG/ML VIAL IV PRN (19:36)
[2020-02-02] MEDS ORDERED: ACETAMINOPHEN 325MG TABLET PO PRN (22:45)
[2020-02-02] MEDS ORDERED: ONDANSETRON HCL 4MG/2ML INJ IV PRN (22:45)
[2020-02-02] MEDS: MORPHINE SULFATE 2 MG/ML CPJ (NOT FOR IM USE) IV PRN (22:51)
[2020-02-02 23:00] VITALS: BP 151/78
[2020-02-03] VITALS (7 sets, daily range): BP systolic 118–160; BP diastolic 67–100
[2020-02-03] MEDS: MORPHINE SULFATE 2 MG/ML CPJ (NOT FOR IM USE) IV PRN ×4 (02:55→20:23)
[2020-02-03] MEDS: ALPRAZOLAM 0.5 MG TABLET PO PRN ×3 (02:56→20:24)
[2020-02-03] MEDS: DIPHENHYDRAMINE 50MG CAPSULE PO PRN ×2 (03:33→13:49)
[2020-02-03 05:57] LABS: BASOPHILS % 1.2 % (0.0-2.0); EOSINOPHILS % 3.2 % (0.0-5.0); HEMOGLOBIN. 7.3 g/dL (12.0-16.0); LYMPHOCYTES % 16.6 % (20.0-50.0); MEAN CORPUSCULAR HEMOGLOBIN 32.5 pg (28.0-32.0); MEAN PLATELET VOLUME 7.7 fl (7.4-10.4); MONOCYTES % 11.2 % (2.0-8.0); NEUTROPHILS % 67.8 % (40.0-76.0); PLATELET 147 x1000/uL (130-400); RED BLOOD CELL COUNT 2.25 mill/uL (4.2-5.4); RED CELL DISTRIBUTION WIDTH 16.9 % (11.6-14.6)
[2020-02-03] MEDS: LEVOTHYROXINE SODIUM 100MCG TABLET PO SCH (05:57)
[2020-02-03] MEDS: LOSARTAN POTASSIUM 100 MG TABLET PO SCH (09:00)
[2020-02-03] MEDS: CARVEDILOL 12.5MG TABLET PO SCH ×2 (09:00→22:50)
[2020-02-03] MEDS: CALCIUM ACETATE 667MG CAPSULE PO SCH ×3 (09:11→17:24)
[2020-02-03] MEDS: FOLIC ACID/VITAMIN B COMP W-C TABLET PO SCH (09:11)
[2020-02-03] MEDS: DIPHENHYDRAMINE 50MG/ML VIAL IV PRN ×2 (14:05→22:48)
[2020-02-03] MEDS: METRONIDAZOLE 500MG TABLET PO SCH (18:21)
[2020-02-03] MEDS ORDERED: VANCOMYCIN 1250MG in DEXTROSE 5% WATER 250ML IV SCH (20:00)
[2020-02-03] MEDS: CEFTRIAXONE 1,000 MG in DEXTROSE 5% WATER 50 ML IV SCH (20:22)
[2020-02-03] MEDS: PHENYTOIN SODIUM EXTENDED 100MG CAPSULE PO SCH (20:23)
[2020-02-03 21:34] LABS: HEMATOCRIT 24.4 % (36.0-48.0); HEMOGLOBIN 8.3 g/dL (12.0-16.0)
[2020-02-03] MEDS ORDERED: METRONIDAZOLE 500MG TABLET PO SCH (22:00)
[2020-02-04] VITALS: BP 166/99
[2020-02-04] MEDS: MORPHINE SULFATE 2 MG/ML CPJ (NOT FOR IM USE) IV PRN ×5 (00:09→19:58)
[2020-02-04 04:00] VITALS: BP 140/91
[2020-02-04] MEDS: ALPRAZOLAM 0.5 MG TABLET PO PRN ×3 (04:18→21:02)
[2020-02-04] MEDS: LEVOTHYROXINE SODIUM 100MCG TABLET PO SCH (06:08)
[2020-02-04] MEDS: DIPHENHYDRAMINE 50MG/ML VIAL IV PRN ×3 (06:08→22:12)
[2020-02-04] MEDS: METRONIDAZOLE 500MG TABLET PO SCH ×2 (06:08→17:45)
[2020-02-04 08:00] VITALS: BP 159/102
[2020-02-04] MEDS: CARVEDILOL 12.5MG TABLET PO SCH ×3 (09:00→20:30)
[2020-02-04] MEDS: LOSARTAN POTASSIUM 100 MG TABLET PO SCH ×2 (09:00→16:04)
[2020-02-04] MEDS: FOLIC ACID/VITAMIN B COMP W-C TABLET PO SCH (10:12)
[2020-02-04] MEDS: CALCIUM ACETATE 667MG CAPSULE PO SCH ×3 (10:13→17:45)
[2020-02-04 11:45] LABS: HEMATOCRIT. 26.9 % (36.0-48.0); MEAN CORPUSCULAR HEMOGLOBIN 32.3 pg (28.0-32.0); MEAN CORPUSCULAR VOLUME 96.7 fL (81.0-99.0); MEAN PLATELET VOLUME 7.8 fl (7.4-10.4); PLATELET 139 x1000/uL (130-400); RED BLOOD CELL COUNT 2.78 mill/uL (4.2-5.4); RED CELL DISTRIBUTION WIDTH 16.7 % (11.6-14.6)
[2020-02-04 14:12] LABS: PLATELET ESTIMATE NORMAL
[2020-02-04 15:50] VITALS: BP 182/112
[2020-02-04] MEDS: CEFTRIAXONE 1,000 MG in DEXTROSE 5% WATER 50 ML IV SCH (19:58)
[2020-02-04 20:00] VITALS: BP 156/95
[2020-02-04] MEDS: PHENYTOIN SODIUM EXTENDED 100MG CAPSULE PO SCH (20:30)
[2020-02-05] VITALS: BP 126/87
[2020-02-05] MEDS: MORPHINE SULFATE 2 MG/ML CPJ (NOT FOR IM USE) IV PRN ×4 (01:28→21:49)
[2020-02-05 04:00] VITALS: BP 133/89
[2020-02-05] MEDS: LEVOTHYROXINE SODIUM 100MCG TABLET PO SCH (06:08)
[2020-02-05] MEDS: METRONIDAZOLE 500MG TABLET PO SCH ×2 (06:08→18:17)
[2020-02-05] MEDS: DIPHENHYDRAMINE 50MG/ML VIAL IV PRN ×2 (06:09→21:12)
[2020-02-05 08:04] VITALS: BP 141/97
[2020-02-05] MEDS: CALCIUM ACETATE 667MG CAPSULE PO SCH ×3 (08:16→18:17)
[2020-02-05] MEDS: LOSARTAN POTASSIUM 100 MG TABLET PO SCH (08:16)
[2020-02-05] MEDS: FOLIC ACID/VITAMIN B COMP W-C TABLET PO SCH (08:16)
[2020-02-05] MEDS: CARVEDILOL 12.5MG TABLET PO SCH ×2 (08:17→21:03)
[2020-02-05 08:44] LABS: HEMATOCRIT. 27.3 % (36.0-48.0); HEMOGLOBIN. 9.1 g/dL (12.0-16.0); MEAN CORPUSCULAR VOLUME 95.6 fL (81.0-99.0); MEAN PLATELET VOLUME 7.9 fl (7.4-10.4); PLATELET 134 x1000/uL (130-400); RED BLOOD CELL COUNT 2.85 mill/uL (4.2-5.4); RED CELL DISTRIBUTION WIDTH 16.5 % (11.6-14.6)
[2020-02-05] MEDS: ALPRAZOLAM 0.5 MG TABLET PO PRN ×2 (09:54→18:58)
[2020-02-05 10:37] LABS: PLATELET ESTIMATE NORMAL
[2020-02-05 11:52] VITALS: BP 121/81
[2020-02-05] MEDS: DIPHENHYDRAMINE 50MG CAPSULE PO PRN (13:40)
[2020-02-05 16:00] VITALS: BP 148/94
[2020-02-05] MEDS ORDERED: VANCOMYCIN 750 MG PREMIX 150 ML IV NR (16:30)
[2020-02-05 20:00] VITALS: BP 156/106
[2020-02-05] MEDS: PHENYTOIN SODIUM EXTENDED 100MG CAPSULE PO SCH (21:03)
[2020-02-05] MEDS: CEFTRIAXONE 1,000 MG in DEXTROSE 5% WATER 50 ML IV SCH (21:03)
[2020-02-06] VITALS (8 sets, daily range): BP systolic 126–165; BP diastolic 88–100
[2020-02-06] MEDS: MORPHINE SULFATE 2 MG/ML CPJ (NOT FOR IM USE) IV PRN ×6 (01:47→23:53)
[2020-02-06] MEDS: ALPRAZOLAM 0.5 MG TABLET PO PRN ×3 (02:55→18:55)
[2020-02-06] MEDS: DIPHENHYDRAMINE 50MG/ML VIAL IV PRN ×3 (05:47→23:53)
[2020-02-06] MEDS: METRONIDAZOLE 500MG TABLET PO SCH ×2 (06:11→17:52)
[2020-02-06] MEDS: LEVOTHYROXINE SODIUM 100MCG TABLET PO SCH (06:11)
[2020-02-06 06:25] LABS: HEMATOCRIT. 28.5 % (36.0-48.0); HEMOGLOBIN. 9.6 g/dL (12.0-16.0); MEAN CORPUSCULAR HEMOGLOBIN 32.2 pg (28.0-32.0); MEAN CORPUSCULAR VOLUME 96.1 fL (81.0-99.0); MEAN PLATELET VOLUME 8.3 fl (7.4-10.4); PLATELET 134 x1000/uL (130-400); RED BLOOD CELL COUNT 2.97 mill/uL (4.2-5.4); RED CELL DISTRIBUTION WIDTH 16.2 % (11.6-14.6)
[2020-02-06] MEDS: CALCIUM ACETATE 667MG CAPSULE PO SCH ×3 (08:19→18:55)
[2020-02-06] MEDS: FOLIC ACID/VITAMIN B COMP W-C TABLET PO SCH (08:19)
[2020-02-06] MEDS: LOSARTAN POTASSIUM 100 MG TABLET PO SCH (08:19)
[2020-02-06] MEDS: CARVEDILOL 12.5MG TABLET PO SCH ×2 (08:19→21:01)
[2020-02-06 12:15] LABS: PLATELET ESTIMATE NORMAL
[2020-02-06] MEDS ORDERED: ALPR2TAB2 MT (12:30)
[2020-02-06] MEDS ORDERED: OMEP20CA14 MT (12:30)
[2020-02-06] MEDS: CEFTRIAXONE 1,000 MG in DEXTROSE 5% WATER 50 ML IV SCH (20:57)
[2020-02-06] MEDS: PHENYTOIN SODIUM EXTENDED 100MG CAPSULE PO SCH (21:00)
[2020-02-07 00:48] VITALS: BP 116/74
[2020-02-07] MEDS: ALPRAZOLAM 0.5 MG TABLET PO PRN (02:47)
[2020-02-07] MEDS: MORPHINE SULFATE 2 MG/ML CPJ (NOT FOR IM USE) IV PRN ×2 (03:57→08:16)
[2020-02-07 04:00] VITALS: BP 106/74
[2020-02-07] MEDS: METRONIDAZOLE 500MG TABLET PO SCH (05:13)
[2020-02-07] MEDS: LEVOTHYROXINE SODIUM 100MCG TABLET PO SCH (06:41)
[2020-02-07 07:47] VITALS: BP 126/88
[2020-02-07] MEDS: CALCIUM ACETATE 667MG CAPSULE PO SCH (08:15)
[2020-02-07] MEDS: CARVEDILOL 12.5MG TABLET PO SCH (08:15)
[2020-02-07] MEDS: FOLIC ACID/VITAMIN B COMP W-C TABLET PO SCH (08:15)
[2020-02-07] MEDS: LOSARTAN POTASSIUM 100 MG TABLET PO SCH (08:15)
[2020-02-07 08:16] VITALS: BP 126/88
== END 2020-02-07 09:28 | disposition home or self-care (01) | DRG 720 ==
LOC: ER 13:41 → 8WST 17:43 → ENRESERV 20:38 → CANBEDREQ 02-03 06:26
PROVIDERS: ADMIT Internal Medicine; ATTEND Internal Medicine
PROC: 5A1D70Z Performance of Urinary Filtration, Intermittent, Less than 6 Hours Per Day (ICD-10-PCS; principal; 2020-02-03)
PROC: 30233N1 Transfusion of Nonautologous Red Blood Cells into Peripheral Vein, Percutaneous Approach (ICD-10-PCS; 2020-02-03)
PROC: 5A1D70Z Performance of Urinary Filtration, Intermittent, Less than 6 Hours Per Day (ICD-10-PCS; 2020-02-04)
PROC: 5A1D70Z Performance of Urinary Filtration, Intermittent, Less than 6 Hours Per Day (ICD-10-PCS; 2020-02-06)
DX: A41.9 Sepsis, unspecified organism (principal); N18.6 End stage renal disease; E87.1 Hypo-osmolality and hyponatremia; I13.2 Hypertensive heart and chronic kidney disease with heart failure and with stage 5 chronic kidney disease, or end stage renal disease; R18.8 Other ascites; D63.8 Anemia in other chronic diseases classified elsewhere; E03.9 Hypothyroidism, unspecified; E16.2 Hypoglycemia, unspecified; F41.9 Anxiety disorder, unspecified; I50.9 Heart failure, unspecified; F10.10 Alcohol abuse, uncomplicated; G40.909 Epilepsy, unspecified, not intractable, without status epilepticus; G89.29 Other chronic pain; R74.0 Nonspecific elevation of levels of transaminase and lactic acid dehydrogenase [LDH]; J18.9 Pneumonia, unspecified organism; K74.60 Unspecified cirrhosis of liver; Z98.891 History of uterine scar from previous surgery; Z99.2 Dependence on renal dialysis; Z91.018 Allergy to other foods; Z79.891 Long term (current) use of opiate analgesic; Z79.899 Other long term (current) drug therapy
CPT/HCPCS: 36415; 71045; 74176; 76705; 80048; 80053; 80076; 80202; 82947; 82962; 83880; 84145; 84484; 85014; 85018; 85025; 86850; 86900; 86920; 93005; 99291; J0696; J1200; J2270; J2405; J3370; J7060; P9016; Q0163

== ENCOUNTER 2020-02-18 11:45 | Inpatient (IN) | payer MEDICARE, MEDICAID ==
[~2020-02-18] VITALS: Ht 165.1 cm; Wt 69.4 kg
[~2020-02-18 11:45] MED LIST changes: +OMEP20CA14 MT
[2020-02-18] MEDS ORDERED: MORPHINE SULFATE 4 MG/ML CPJ (NOT FOR IM USE) IV STA (12:34)
[2020-02-18] MEDS ORDERED: SODIUM CHLORIDE 0.9% 1,000 ML IV ONE (12:34)
[2020-02-18] MEDS ORDERED: ONDANSETRON HCL 4MG/2ML INJ IV STA (12:34)
[2020-02-18 12:44] LABS: BASOPHILS % 1.8 % (0.0-2.0); EOSINOPHILS % 2.8 % (0.0-5.0); LYMPHOCYTES % 17.4 % (20.0-50.0); MEAN CORPUSCULAR HEMOGLOBIN 33.4 pg (28.0-32.0); MEAN CORPUSCULAR VOLUME 99.5 fL (81.0-99.0); MEAN PLATELET VOLUME 7.8 fl (7.4-10.4); MONOCYTES % 7.9 % (2.0-8.0); NEUTROPHILS % 70.1 % (40.0-76.0); PLATELET 126 x1000/uL (130-400); RED BLOOD CELL COUNT 1.28 mill/uL (4.2-5.4); RED CELL DISTRIBUTION WIDTH 16.9 % (11.6-14.6)
[2020-02-18] MEDS ORDERED: DIPHENHYDRAMINE 50MG/ML VIAL IV ONE (12:45)
[2020-02-18 12:52] LABS: CHLORIDE 94 mEq/L (98-107)
[2020-02-18 12:53] LABS: HEMATOCRIT. 12.7 % (36.0-48.0); HEMOGLOBIN. 4.3 g/dL (12.0-16.0)
[2020-02-18] MEDS ORDERED: ALBUTEROL (0.083%) 2.5MG/3ML NEB HHN ONE (14:00)
[2020-02-18] MEDS ORDERED: SODIUM POLYSTYRENE SULFONATE 15 G/60 ML BOT PO ONE (14:00)
[2020-02-18] MEDS ORDERED: SODIUM BICARBONATE 8.4% 1 MEQ/ML 50ML SYR IV ONE (14:00)
[2020-02-18] MEDS ORDERED: ACETAMINOPHEN 325MG TABLET PO PRN (14:45)
[2020-02-18] MEDS ORDERED: ONDANSETRON HCL 4MG/2ML INJ IV PRN (14:45)
[2020-02-18] MEDS ORDERED: IPRATROPIUM/ALBUTEROL 0.5-3(2.5)MG/3ML NEB HHN PRN (14:45)
[2020-02-18] MEDS ORDERED: DEXTROSE 50% WATER 50ML SYRINGE IV ONE (14:45)
[2020-02-18 15:08] LABS: PHOSPHORUS 4.8 mg/dL (2.5-4.9)
[2020-02-18] MEDS ORDERED: HYDROCODONE/ACETAMINOPHEN 5/325MG TABLET PO PRN (16:45)
[2020-02-18] MEDS: MORPHINE SULFATE 2 MG/ML CPJ (NOT FOR IM USE) IV PRN ×2 (17:00→21:24)
[2020-02-18] MEDS: DIPHENHYDRAMINE 50MG/ML VIAL IV PRN (17:00)
[2020-02-18] MEDS: ALPRAZOLAM 0.5 MG TABLET PO PRN (19:14)
[2020-02-18] MEDS: CALCIUM ACETATE 667MG CAPSULE PO SCH (19:56)
[2020-02-18] MEDS: PHENYTOIN SODIUM EXTENDED 100MG CAPSULE PO SCH (21:26)
[2020-02-18] MEDS: CARVEDILOL 12.5MG TABLET PO SCH (21:26)
[2020-02-18] MEDS: ZOLPIDEM TARTRATE 5MG TABLET PO PRN (21:45)
[2020-02-18 22:00] VITALS: BP 167/86
[2020-02-18] MEDS ORDERED: DIPHENHYDRAMINE 50MG/ML VIAL IV NR (22:23)
[2020-02-18 23:00] VITALS: BP 167/86
[2020-02-19] VITALS (25 sets, daily range): BP systolic 124–162; BP diastolic 64–96
[2020-02-19] MEDS: MORPHINE SULFATE 2 MG/ML CPJ (NOT FOR IM USE) IV PRN ×4 (01:25→22:42)
[2020-02-19] MEDS: DIPHENHYDRAMINE 50MG/ML VIAL IV PRN ×4 (02:58→21:50)
[2020-02-19] MEDS: ALPRAZOLAM 0.5 MG TABLET PO PRN ×3 (05:19→22:41)
[2020-02-19] MEDS: LEVOTHYROXINE SODIUM 100MCG TABLET PO SCH (06:35)
[2020-02-19] MEDS: OMEPRAZOLE 20MG CAPSULE EXTENDED RELEASE PO SCH (06:36)
[2020-02-19] MEDS: FOLIC ACID/VITAMIN B COMP W-C TABLET PO SCH (08:22)
[2020-02-19] MEDS: CALCIUM ACETATE 667MG CAPSULE PO SCH ×3 (08:22→16:52)
[2020-02-19] MEDS: CLONIDINE 0.1MG TABLET PO PRN ×2 (08:23→17:58)
[2020-02-19] MEDS: LOSARTAN POTASSIUM 100 MG TABLET PO SCH (08:23)
[2020-02-19] MEDS: CARVEDILOL 12.5MG TABLET PO SCH ×2 (08:23→20:55)
[2020-02-19 09:58] LABS: BASOPHILS % 1.1 % (0.0-2.0); EOSINOPHILS % 4.6 % (0.0-5.0); LYMPHOCYTES % 13.5 % (20.0-50.0); MEAN CORPUSCULAR HEMOGLOBIN 31.9 pg (28.0-32.0); MEAN CORPUSCULAR VOLUME 92.2 fL (81.0-99.0); MEAN PLATELET VOLUME 7.8 fl (7.4-10.4); MONOCYTES % 11.1 % (2.0-8.0); NEUTROPHILS % 69.7 % (40.0-76.0); PLATELET 112 x1000/uL (130-400); RED BLOOD CELL COUNT 1.99 mill/uL (4.2-5.4)
[2020-02-19 09:59] LABS: CHLORIDE 100 mEq/L (98-107)
[2020-02-19 10:01] LABS: HEMATOCRIT. 18.3 % (36.0-48.0); HEMOGLOBIN. 6.3 g/dL (12.0-16.0)
[2020-02-19 10:09] LABS: LDL CHOLESTEROL 116 mg/dL (5-100)
[2020-02-19 10:10] LABS: HDL CHOLESTEROL 97 mg/dL (40-59)
[2020-02-19 20:42] LABS: HEMOGLOBIN 7.6 g/dL (12.0-16.0)
[2020-02-19] MEDS: PHENYTOIN SODIUM EXTENDED 100MG CAPSULE PO SCH (20:54)
[2020-02-19] MEDS: ZOLPIDEM TARTRATE 5MG TABLET PO PRN (20:55)
[2020-02-20] VITALS: BP 116/64
[2020-02-20 04:00] VITALS: BP 118/65
[2020-02-20] MEDS: DIPHENHYDRAMINE 50MG/ML VIAL IV PRN ×3 (04:09→13:13)
[2020-02-20] MEDS: MORPHINE SULFATE 2 MG/ML CPJ (NOT FOR IM USE) IV PRN ×2 (04:48→10:58)
[2020-02-20] MEDS: ALPRAZOLAM 0.5 MG TABLET PO PRN ×2 (06:41→14:44)
[2020-02-20] MEDS: OMEPRAZOLE 20MG CAPSULE EXTENDED RELEASE PO SCH (06:41)
[2020-02-20] MEDS: LEVOTHYROXINE SODIUM 100MCG TABLET PO SCH (06:41)
[2020-02-20 06:50] LABS: BASOPHILS % 1.3 % (0.0-2.0); EOSINOPHILS % 6.9 % (0.0-5.0); HEMATOCRIT. 23.6 % (36.0-48.0); HEMOGLOBIN. 8.2 g/dL (12.0-16.0); LYMPHOCYTES % 22.4 % (20.0-50.0); MEAN CORPUSCULAR HEMOGLOBIN 31.4 pg (28.0-32.0); MEAN CORPUSCULAR VOLUME 90.9 fL (81.0-99.0); MEAN PLATELET VOLUME 8.2 fl (7.4-10.4); MONOCYTES % 13.3 % (2.0-8.0); NEUTROPHILS % 56.1 % (40.0-76.0); PLATELET 99 x1000/uL (130-400); RED CELL DISTRIBUTION WIDTH 18.1 % (11.6-14.6)
[2020-02-20 08:06] VITALS: BP 129/75
[2020-02-20] MEDS: FOLIC ACID/VITAMIN B COMP W-C TABLET PO SCH (08:27)
[2020-02-20] MEDS: LOSARTAN POTASSIUM 100 MG TABLET PO SCH (08:27)
[2020-02-20] MEDS: CALCIUM ACETATE 667MG CAPSULE PO SCH ×2 (08:27→12:32)
[2020-02-20] MEDS: CARVEDILOL 12.5MG TABLET PO SCH (08:28)
[2020-02-20 11:48] VITALS: BP 132/83
[2020-02-20 15:16] VITALS: BP 132/83
[2020-02-20] MEDS ORDERED: ALPR2TAB2 MT (16:29)
== END 2020-02-20 16:51 | disposition home or self-care (01) | DRG 194 ==
LOC: ER 11:59 → 8WST 13:57 → ENRESERV 16:32
PROVIDERS: ADMIT Internal Medicine; ATTEND Internal Medicine
PROC: 30233N1 Transfusion of Nonautologous Red Blood Cells into Peripheral Vein, Percutaneous Approach (ICD-10-PCS; principal; 2020-02-18)
PROC: 5A1D70Z Performance of Urinary Filtration, Intermittent, Less than 6 Hours Per Day (ICD-10-PCS; 2020-02-18)
PROC: 5A1D70Z Performance of Urinary Filtration, Intermittent, Less than 6 Hours Per Day (ICD-10-PCS; 2020-02-20)
DX: I13.2 Hypertensive heart and chronic kidney disease with heart failure and with stage 5 chronic kidney disease, or end stage renal disease (principal); E87.5 Hyperkalemia; D63.8 Anemia in other chronic diseases classified elsewhere; K76.9 Liver disease, unspecified; Z76.5 Malingerer [conscious simulation]; N18.6 End stage renal disease; E16.2 Hypoglycemia, unspecified; E87.1 Hypo-osmolality and hyponatremia; E87.2 Acidosis; D69.6 Thrombocytopenia, unspecified; E03.9 Hypothyroidism, unspecified; F10.10 Alcohol abuse, uncomplicated; F41.9 Anxiety disorder, unspecified; I50.9 Heart failure, unspecified; R56.9 Unspecified convulsions; R18.8 Other ascites; Z91.19 Patient's noncompliance with other medical treatment and regimen; Z98.891 History of uterine scar from previous surgery; Z99.2 Dependence on renal dialysis; Z71.41 Alcohol abuse counseling and surveillance of alcoholic; Z91.018 Allergy to other foods; Z79.1 Long term (current) use of non-steroidal anti-inflammatories (NSAID); Z79.899 Other long term (current) drug therapy
CPT/HCPCS: 36415; 71045; 80048; 80053; 80061; 82962; 83735; 84100; 84443; 85014; 85018; 85025; 86850; 86900; 86920; 93005; 93970; 94644; 99285; J1200; J2270; J2405; J3490; J7030; P9016

== ENCOUNTER 2020-03-01 17:55 | Inpatient (IN) | payer MEDICARE, MEDICAID ==
[~2020-03-01] VITALS: Ht 170.2 cm; Wt 61.7 kg
[2020-03-01] MEDS ORDERED: SODIUM CHLORIDE 0.9% 1,000 ML IV ONE (18:46)
[2020-03-01] MEDS ORDERED: ONDANSETRON HCL 4MG/2ML INJ IV STA (18:46)
[2020-03-01] MEDS ORDERED: MORPHINE SULFATE 4 MG/ML CPJ (NOT FOR IM USE) IV STA (18:46)
[2020-03-01] MEDS ORDERED: DIPHENHYDRAMINE 50MG/ML VIAL IV ONE (19:00)
[2020-03-01 19:16] LABS: BASOPHILS % 2.3 % (0.0-2.0); EOSINOPHILS % 1.3 % (0.0-5.0); HEMATOCRIT. 28.5 % (36.0-48.0); HEMOGLOBIN. 9.4 g/dL (12.0-16.0); LYMPHOCYTES % 13.3 % (20.0-50.0); MEAN CORPUSCULAR HEMOGLOBIN 32.2 pg (28.0-32.0); MEAN CORPUSCULAR VOLUME 97.4 fL (81.0-99.0); MONOCYTES % 4.7 % (2.0-8.0); NEUTROPHILS % 78.4 % (40.0-76.0); PLATELET 194 x1000/uL (130-400); RED BLOOD CELL COUNT 2.92 mill/uL (4.2-5.4); RED CELL DISTRIBUTION WIDTH 18.7 % (11.6-14.6)
[2020-03-01 19:27] LABS: INR 1.1; PROTHROMBIN TIME 11.3 sec (9.6-11.0)
[2020-03-01 19:30] LABS: CHLORIDE 104 mEq/L (98-107)
[2020-03-01] MEDS ORDERED: DEXTROSE 50% WATER 50ML SYRINGE IV ONE ×2 (20:00)
[2020-03-02 00:15] VITALS: BP 193/106
[2020-03-02] MEDS ORDERED: HYDR-4135 PO (01:00)
[2020-03-02] MEDS ORDERED: ALPRAZOLAM 0.5 MG TABLET PO PRN (01:15)
[2020-03-02] MEDS ORDERED: CLONIDINE 0.1MG TABLET PO PRN (01:15)
[2020-03-02] MEDS ORDERED: DIPHENHYDRAMINE 50MG CAPSULE PO PRN (01:15)
[2020-03-02] MEDS: HYDRALAZINE HCL 50MG TABLET PO SCH ×4 (01:39→22:21)
[2020-03-02] MEDS: MORPHINE SULFATE 2 MG/ML CPJ (NOT FOR IM USE) IV PRN ×5 (01:39→23:14)
[2020-03-02] MEDS: AMLODIPINE 10MG TABLET PO SCH ×2 (01:39→08:30)
[2020-03-02 04:00] VITALS: BP 150/79
[2020-03-02] MEDS: OMEPRAZOLE 20MG CAPSULE EXTENDED RELEASE PO SCH (06:24)
[2020-03-02] MEDS: LEVOTHYROXINE SODIUM 100MCG TABLET PO SCH (06:24)
[2020-03-02 07:05] LABS: HEMATOCRIT. 24.8 % (36.0-48.0); HEMOGLOBIN. 8.1 g/dL (12.0-16.0); MEAN CORPUSCULAR HEMOGLOBIN 32.2 pg (28.0-32.0); MEAN CORPUSCULAR VOLUME 97.9 fL (81.0-99.0); MEAN PLATELET VOLUME 8.4 fl (7.4-10.4); PLATELET 140 x1000/uL (130-400); RED BLOOD CELL COUNT 2.53 mill/uL (4.2-5.4); RED CELL DISTRIBUTION WIDTH 18.8 % (11.6-14.6)
[2020-03-02 07:21] LABS: PHOSPHORUS 4.9 mg/dL (2.5-4.9)
[2020-03-02 08:00] VITALS: BP 146/82
[2020-03-02] MEDS: LOSARTAN POTASSIUM 100 MG TABLET PO SCH (08:30)
[2020-03-02] MEDS: CALCIUM ACETATE 667MG CAPSULE PO SCH ×3 (08:30→18:24)
[2020-03-02] MEDS: CARVEDILOL 12.5MG TABLET PO SCH ×2 (09:13→20:21)
[2020-03-02] MEDS: ALPRAZOLAM 0.5 MG TABLET PO PRN ×2 (09:19→18:25)
[2020-03-02] MEDS ORDERED: SODIUM BICARBONATE 8.4% 1 MEQ/ML 50ML SYR IV SCH (10:45)
[2020-03-02 12:00] VITALS: BP 142/75
[2020-03-02] MEDS: DIPHENHYDRAMINE 50MG/ML VIAL IV PRN ×2 (12:55→20:16)
[2020-03-02 13:53] LABS: PLATELET ESTIMATE NORMAL
[2020-03-02 16:00] VITALS: BP 176/92
[2020-03-02 20:00] VITALS: BP 149/83
[2020-03-02] MEDS ORDERED: EPOETIN ALFA 10000UNITS/ML VIAL SUBCUT SCH (21:00)
[2020-03-02] MEDS ORDERED: ATORVASTATIN CALCIUM 40MG TABLET PO SCH (21:00)
[2020-03-02] MEDS ORDERED: PHENYTOIN SODIUM EXTENDED 100MG CAPSULE PO SCH (21:00)
[2020-03-03] VITALS (12 sets, daily range): BP systolic 99–160; BP diastolic 52–95
[2020-03-03] MEDS: ALPRAZOLAM 0.5 MG TABLET PO PRN ×2 (02:29→11:01)
[2020-03-03] MEDS: DIPHENHYDRAMINE 50MG/ML VIAL IV PRN (03:46)
[2020-03-03 06:29] LABS: HEMOGLOBIN. 7.1 g/dL (12.0-16.0); MEAN CORPUSCULAR HEMOGLOBIN 32.2 pg (28.0-32.0); MEAN CORPUSCULAR VOLUME 94.1 fL (81.0-99.0); MEAN PLATELET VOLUME 8.2 fl (7.4-10.4); PLATELET 119 x1000/uL (130-400); RED BLOOD CELL COUNT 2.19 mill/uL (4.2-5.4); RED CELL DISTRIBUTION WIDTH 18.5 % (11.6-14.6)
[2020-03-03] MEDS: OMEPRAZOLE 20MG CAPSULE EXTENDED RELEASE PO SCH (06:34)
[2020-03-03] MEDS: HYDRALAZINE HCL 50MG TABLET PO SCH ×2 (06:34→13:31)
[2020-03-03] MEDS: LEVOTHYROXINE SODIUM 100MCG TABLET PO SCH (06:34)
[2020-03-03 07:44] LABS: HEMATOCRIT. 20.7 % (36.0-48.0)
[2020-03-03] MEDS: LOSARTAN POTASSIUM 100 MG TABLET PO SCH (08:08)
[2020-03-03] MEDS: AMLODIPINE 10MG TABLET PO SCH (08:08)
[2020-03-03] MEDS: CARVEDILOL 12.5MG TABLET PO SCH (08:08)
[2020-03-03] MEDS: MORPHINE SULFATE 2 MG/ML CPJ (NOT FOR IM USE) IV PRN ×2 (08:09→13:59)
[2020-03-03] MEDS: CALCIUM ACETATE 667MG CAPSULE PO SCH ×3 (08:09→18:21)
[2020-03-03] MEDS ORDERED: POTASSIUM CHLORIDE 20MEQ TABLET SR PO NR (09:15)
[2020-03-03] MEDS ORDERED: DIPHENHYDRAMINE 50MG/ML VIAL IV NR (09:15)
[2020-03-03] MEDS ORDERED: LIDOCAINE HCL 1% 20ML VIAL (Pyxis) INJ ONE (09:15)
[2020-03-03] MEDS ORDERED: SODIUM BICARBONATE 4% (2.4MEQ) 5ML VIAL IV ONE (09:16)
[2020-03-03] MEDS ORDERED: POTASSIUM CHLORIDE 20MEQ TABLET SR PO ONE (10:30)
[2020-03-03] MEDS ORDERED: ALPR2TAB2 MT (13:46)
[2020-03-03 15:36] LABS: PLATELET ESTIMATE SLIGHTLY DECREASED
== END 2020-03-03 18:48 | DRG 425 ==
LOC: ER 17:55 → EDBEDREQ 20:49 → EDBEDREQTM 20:49 → ENRESERV 23:09 → 6WST 23:57
PROVIDERS: ADMIT Internal Medicine; ATTEND Internal Medicine
PROC: 30233N1 Transfusion of Nonautologous Red Blood Cells into Peripheral Vein, Percutaneous Approach (ICD-10-PCS; principal; 2020-03-02)
PROC: 5A1D70Z Performance of Urinary Filtration, Intermittent, Less than 6 Hours Per Day (ICD-10-PCS; 2020-03-02)
PROC: 0W9G3ZZ Drainage of Peritoneal Cavity, Percutaneous Approach (ICD-10-PCS; 2020-03-03)
DX: E87.70 Fluid overload, unspecified (principal); I13.2 Hypertensive heart and chronic kidney disease with heart failure and with stage 5 chronic kidney disease, or end stage renal disease; N18.6 End stage renal disease; E03.9 Hypothyroidism, unspecified; G40.909 Epilepsy, unspecified, not intractable, without status epilepticus; F10.10 Alcohol abuse, uncomplicated; F41.9 Anxiety disorder, unspecified; R18.8 Other ascites; K29.70 Gastritis, unspecified, without bleeding; D63.8 Anemia in other chronic diseases classified elsewhere; K74.60 Unspecified cirrhosis of liver; E16.2 Hypoglycemia, unspecified; E78.5 Hyperlipidemia, unspecified; R74.0 Nonspecific elevation of levels of transaminase and lactic acid dehydrogenase [LDH]; I50.9 Heart failure, unspecified; K86.1 Other chronic pancreatitis; Z91.018 Allergy to other foods; Z91.19 Patient's noncompliance with other medical treatment and regimen; Z76.5 Malingerer [conscious simulation]; Z87.891 Personal history of nicotine dependence; Z99.2 Dependence on renal dialysis; Z91.14 Patient's other noncompliance with medication regimen; Z79.899 Other long term (current) drug therapy
CPT/HCPCS: 36415; 49083; 71045; 74176; 80048; 80053; 80061; 80185; 82962; 83880; 84100; 84484; 85025; 86850; 86900; 86920; 93005; 99285; J0885; J1200; J2270; J2405; J3490; J7030; P9016; Q0163

== ENCOUNTER 2020-03-13 15:39 | Inpatient (IN) | payer MEDICARE, MEDICAID ==
[~2020-03-13] VITALS: Ht 170.2 cm; Wt 58.5 kg
[~2020-03-13 15:39] MED LIST changes: +HYDR-4135 PO; -LEVO100T MT
[2020-03-13] MEDS ORDERED: MORPHINE SULFATE 2 MG/ML CPJ (NOT FOR IM USE) IV ONE (20:15)
[2020-03-13 21:14] LABS: CHLORIDE 108 mEq/L (98-107)
[2020-03-13 21:18] LABS: EOSINOPHILS % 4.8 % (0.0-5.0); HEMATOCRIT. 26.6 % (36.0-48.0); HEMOGLOBIN. 8.8 g/dL (12.0-16.0); LYMPHOCYTES % 24.5 % (20.0-50.0); MEAN CORPUSCULAR HEMOGLOBIN 32.2 pg (28.0-32.0); MEAN CORPUSCULAR VOLUME 96.7 fL (81.0-99.0); MEAN PLATELET VOLUME 7.5 fl (7.4-10.4); MONOCYTES % 12.9 % (2.0-8.0); NEUTROPHILS % 55.8 % (40.0-76.0); PLATELET 155 x1000/uL (130-400); RED BLOOD CELL COUNT 2.75 mill/uL (4.2-5.4); RED CELL DISTRIBUTION WIDTH 17.9 % (11.6-14.6)
[2020-03-13 21:48] LABS: INR 1.1; PARTIAL THROMBOPLASTIN TIME 33.2 sec (23.4-31.0); PROTHROMBIN TIME 11.7 sec (9.6-11.0)
[2020-03-13] MEDS ORDERED: DEXTROSE 50% WATER 50ML SYRINGE IV ONE (22:15)
[2020-03-13] MEDS ORDERED: DIPHENHYDRAMINE 50MG/ML VIAL IV ONE (22:30)
[2020-03-14] MEDS ORDERED: CLONIDINE 0.2MG TABLET PO ONE (02:00)
[2020-03-14 02:35] VITALS: BP 192/120
[2020-03-14 04:00] VITALS: BP 180/118
[2020-03-14 09:35] VITALS: BP 157/93
[2020-03-14] MEDS ORDERED: ALPRAZOLAM 0.25 MG TABLET PO PRN (09:45)
[2020-03-14] MEDS ORDERED: MORPHINE SULFATE 2 MG/ML CPJ (NOT FOR IM USE) IV PRN (09:45)
[2020-03-14] MEDS ORDERED: DIPHENHYDRAMINE 25MG CAPSULE PO PRN (09:45)
[2020-03-14] MEDS: CARVEDILOL 12.5MG TABLET PO SCH ×2 (10:03→21:20)
[2020-03-14] MEDS: FOLIC ACID/VITAMIN B COMP W-C TABLET PO SCH (10:03)
[2020-03-14] MEDS: HYDRALAZINE HCL 50MG TABLET PO SCH ×2 (10:03→21:19)
[2020-03-14] MEDS: LEVOTHYROXINE SODIUM 100MCG TABLET PO SCH (10:03)
[2020-03-14] MEDS: DIPHENHYDRAMINE 25MG CAPSULE PO PRN (11:20)
[2020-03-14 12:00] VITALS: BP 127/72
[2020-03-14] MEDS: ALPRAZOLAM 0.5 MG TABLET PO PRN ×2 (13:06→22:17)
[2020-03-14] MEDS: CALCIUM ACETATE 667MG CAPSULE PO SCH ×2 (13:06→16:15)
[2020-03-14 16:00] VITALS: BP 141/94
[2020-03-14] MEDS: HYDROMORPHONE HCL/PF 2MG/ML CPJ IV PRN (16:11)
[2020-03-14] MEDS ORDERED: DEXTROSE 50% WATER 50ML SYRINGE IV PRN (18:15)
[2020-03-14 20:00] VITALS: BP 141/86
[2020-03-14] MEDS: BLOOD SUGAR DIAGNOSTIC STRIP TEST SCH (20:55)
[2020-03-14] MEDS: PHENYTOIN SODIUM EXTENDED 100MG CAPSULE PO SCH (21:20)
[2020-03-15] VITALS (7 sets, daily range): BP systolic 133–157; BP diastolic 84–99
[2020-03-15] MEDS: HYDROMORPHONE HCL/PF 2MG/ML CPJ IV PRN ×4 (00:38→20:37)
[2020-03-15] MEDS: BLOOD SUGAR DIAGNOSTIC STRIP TEST SCH ×4 (06:17→20:39)
[2020-03-15 06:29] LABS: HEMOGLOBIN. 8.1 g/dL (12.0-16.0); MEAN CORPUSCULAR HEMOGLOBIN 31.9 pg (28.0-32.0); MEAN CORPUSCULAR VOLUME 94.7 fL (81.0-99.0); MEAN PLATELET VOLUME 7.9 fl (7.4-10.4); PLATELET 128 x1000/uL (130-400); RED BLOOD CELL COUNT 2.53 mill/uL (4.2-5.4); RED CELL DISTRIBUTION WIDTH 18.1 % (11.6-14.6)
[2020-03-15] MEDS: CALCIUM ACETATE 667MG CAPSULE PO SCH ×3 (06:47→17:37)
[2020-03-15] MEDS: DIPHENHYDRAMINE 25MG CAPSULE PO PRN (06:47)
[2020-03-15] MEDS: LEVOTHYROXINE SODIUM 100MCG TABLET PO SCH (06:48)
[2020-03-15] MEDS: LOSARTAN POTASSIUM 100 MG TABLET PO SCH (08:04)
[2020-03-15] MEDS: OMEPRAZOLE 20MG CAPSULE EXTENDED RELEASE PO SCH (08:04)
[2020-03-15] MEDS: CARVEDILOL 12.5MG TABLET PO SCH ×2 (08:05→20:38)
[2020-03-15] MEDS: HYDRALAZINE HCL 50MG TABLET PO SCH ×2 (08:07→20:38)
[2020-03-15] MEDS: FOLIC ACID/VITAMIN B COMP W-C TABLET PO SCH (08:08)
[2020-03-15] MEDS: ALPRAZOLAM 0.5 MG TABLET PO PRN ×2 (10:42→22:03)
[2020-03-15 11:49] LABS: NUCLEATED RED BLOOD CELLS 1 /100 WBC; PLATELET ESTIMATE SLIGHTLY DECREASED
[2020-03-15] MEDS ORDERED: HYDR-4001 MT (16:14)
[2020-03-15] MEDS ORDERED: DIPHENHYDRAMINE 50MG/ML VIAL IV NR (17:30)
[2020-03-15] MEDS: PHENYTOIN SODIUM EXTENDED 100MG CAPSULE PO SCH (20:37)
[2020-03-16] VITALS: BP 135/85
[2020-03-16] MEDS: HYDROMORPHONE HCL/PF 2MG/ML CPJ IV PRN ×2 (03:12→09:16)
[2020-03-16 04:00] VITALS: BP 120/81
[2020-03-16] MEDS: DIPHENHYDRAMINE 25MG CAPSULE PO PRN (06:22)
[2020-03-16] MEDS: LEVOTHYROXINE SODIUM 100MCG TABLET PO SCH (06:22)
[2020-03-16] MEDS: CALCIUM ACETATE 667MG CAPSULE PO SCH (06:22)
[2020-03-16] MEDS: BLOOD SUGAR DIAGNOSTIC STRIP TEST SCH (06:23)
[2020-03-16 08:00] VITALS: BP 142/89
[2020-03-16] MEDS: ALPRAZOLAM 0.5 MG TABLET PO PRN (08:36)
[2020-03-16] MEDS: CARVEDILOL 12.5MG TABLET PO SCH (08:37)
[2020-03-16] MEDS: HYDRALAZINE HCL 50MG TABLET PO SCH (08:37)
[2020-03-16] MEDS: OMEPRAZOLE 20MG CAPSULE EXTENDED RELEASE PO SCH (08:37)
[2020-03-16] MEDS: LOSARTAN POTASSIUM 100 MG TABLET PO SCH (08:37)
[2020-03-16] MEDS: FOLIC ACID/VITAMIN B COMP W-C TABLET PO SCH (08:37)
[2020-03-16 09:33] VITALS: BP 142/89
[2020-03-16 10:08] LABS: HEMATOCRIT. 26.9 % (36.0-48.0); HEMOGLOBIN. 9.2 g/dL (12.0-16.0); MEAN CORPUSCULAR HEMOGLOBIN 32.6 pg (28.0-32.0); MEAN CORPUSCULAR VOLUME 95.8 fL (81.0-99.0); MEAN PLATELET VOLUME 8.6 fl (7.4-10.4); PLATELET 145 x1000/uL (130-400); RED BLOOD CELL COUNT 2.81 mill/uL (4.2-5.4); RED CELL DISTRIBUTION WIDTH 18.7 % (11.6-14.6)
[2020-03-16 22:39] LABS: PLATELET ESTIMATE NORMAL
== END 2020-03-16 10:35 | disposition home or self-care (01) | DRG 199 ==
LOC: ER 15:39 → 5EST 03-14 00:38 → ENRESERV 03-14 01:31 → 5WST 03-14 13:15
PROVIDERS: ADMIT Internal Medicine; ATTEND Internal Medicine
PROC: 5A1D70Z Performance of Urinary Filtration, Intermittent, Less than 6 Hours Per Day (ICD-10-PCS; principal; 2020-03-14)
PROC: 5A1D70Z Performance of Urinary Filtration, Intermittent, Less than 6 Hours Per Day (ICD-10-PCS; 2020-03-15)
DX: I16.0 Hypertensive urgency (principal); I13.2 Hypertensive heart and chronic kidney disease with heart failure and with stage 5 chronic kidney disease, or end stage renal disease; E16.2 Hypoglycemia, unspecified; N18.6 End stage renal disease; E03.9 Hypothyroidism, unspecified; F10.10 Alcohol abuse, uncomplicated; R74.01 Elevation of levels of liver transaminase levels; F41.9 Anxiety disorder, unspecified; D63.8 Anemia in other chronic diseases classified elsewhere; E87.2 Acidosis; K74.60 Unspecified cirrhosis of liver; Y90.9 Presence of alcohol in blood, level not specified; I50.9 Heart failure, unspecified; G40.909 Epilepsy, unspecified, not intractable, without status epilepticus; R18.8 Other ascites; E78.5 Hyperlipidemia, unspecified; Z99.2 Dependence on renal dialysis; Z91.010 Allergy to peanuts; Z91.018 Allergy to other foods; Z79.890 Hormone replacement therapy; Z79.891 Long term (current) use of opiate analgesic; Z79.899 Other long term (current) drug therapy; Z91.19 Patient's noncompliance with other medical treatment and regimen; Z76.5 Malingerer [conscious simulation]; Z71.41 Alcohol abuse counseling and surveillance of alcoholic; Z91.15 Patient's noncompliance with renal dialysis
CPT/HCPCS: 36415; 71045; 73030; 80048; 80053; 82962; 83880; 84484; 85025; 93005; 99285; J1170; J1200; J2270; Q0163

== ENCOUNTER 2020-05-03 04:01 | Inpatient (IN) | payer MEDICARE, MEDICAID ==
[~2020-05-03] VITALS: Ht 170.2 cm; Wt 60.9 kg
[~2020-05-03 04:01] MED LIST changes: -B50 GT; +B50 PO; +LEVO100T MT
[2020-05-03] MEDS ORDERED: ACETAMINOPHEN 325MG TABLET PO ONE (06:15)
[2020-05-03] MEDS ORDERED: HYDROCODONE/ACETAMINOPHEN 10/325MG TABLET PO ONE (08:00)
[2020-05-03 08:24] LABS: BASOPHILS % 0.5 % (0.0-2.0); EOSINOPHILS % 1.4 % (0.0-5.0); HEMATOCRIT. 23.6 % (36.0-48.0); HEMOGLOBIN. 7.7 g/dL (12.0-16.0); LYMPHOCYTES % 11.6 % (20.0-50.0); MEAN CORPUSCULAR HEMOGLOBIN 32.1 pg (28.0-32.0); MEAN CORPUSCULAR VOLUME 97.8 fL (81.0-99.0); MEAN PLATELET VOLUME 7.3 fl (7.4-10.4); MONOCYTES % 9.2 % (2.0-8.0); NEUTROPHILS % 77.3 % (40.0-76.0); PLATELET 206 x1000/uL (130-400); RED BLOOD CELL COUNT 2.41 mill/uL (4.2-5.4); RED CELL DISTRIBUTION WIDTH 17.2 % (11.6-14.6)
[2020-05-03] MEDS ORDERED: LORAZEPAM 1MG TABLET PO ONE (10:45)
[2020-05-03] MEDS ORDERED: ONDANSETRON HCL 4MG/2ML INJ IV PRN (11:45)
[2020-05-03] MEDS: LOSARTAN POTASSIUM 100 MG TABLET PO SCH (11:45)
[2020-05-03 12:40] VITALS: BP 91/53
[2020-05-03] MEDS: HYDROMORPHONE HCL/PF 2MG/ML CPJ IV PRN ×2 (13:19→19:20)
[2020-05-03] MEDS: HYDRALAZINE HCL 100MG TABLET PO SCH ×2 (15:29→21:19)
[2020-05-03] MEDS: ALPRAZOLAM 0.5 MG TABLET PO PRN ×2 (15:29→23:53)
[2020-05-03 16:00] VITALS: BP 189/113
[2020-05-03] MEDS: HYDROCODONE/ACETAMINOPHEN 5/325MG TABLET PO PRN ×2 (16:13→20:21)
[2020-05-03] MEDS: DIPHENHYDRAMINE 25MG CAPSULE PO PRN (17:27)
[2020-05-03 20:00] VITALS: BP 174/106
[2020-05-04] VITALS (7 sets, daily range): BP systolic 171–186; BP diastolic 91–114
[2020-05-04] MEDS: HYDROMORPHONE HCL/PF 2MG/ML CPJ IV PRN ×4 (01:18→17:48)
[2020-05-04] MEDS: HYDROCODONE/ACETAMINOPHEN 5/325MG TABLET PO PRN (03:28)
[2020-05-04] MEDS: HYDRALAZINE HCL 100MG TABLET PO SCH ×3 (05:23→21:16)
[2020-05-04] MEDS: LEVOTHYROXINE SODIUM 100MCG TABLET PO SCH (06:24)
[2020-05-04] MEDS: OMEPRAZOLE 20MG CAPSULE EXTENDED RELEASE PO SCH (06:24)
[2020-05-04 06:46] LABS: HEMATOCRIT. 23.3 % (36.0-48.0); HEMOGLOBIN. 7.7 g/dL (12.0-16.0); MEAN CORPUSCULAR HEMOGLOBIN 31.9 pg (28.0-32.0); RED BLOOD CELL COUNT 2.42 mill/uL (4.2-5.4); RED CELL DISTRIBUTION WIDTH 17.7 % (11.6-14.6)
[2020-05-04] MEDS ORDERED: DIPHENHYDRAMINE 50MG/ML VIAL IV NR (08:30)
[2020-05-04] MEDS: ENOXAPARIN 30MG/0.3ML SYR SUBCUT SCH (08:40)
[2020-05-04 08:43] LABS: PLATELET ESTIMATE NORMAL
[2020-05-04] MEDS: LOSARTAN POTASSIUM 100 MG TABLET PO SCH (08:44)
[2020-05-04 08:46] LABS: MEAN PLATELET VOLUME 8.3 fl (7.4-10.4)
[2020-05-04 08:47] LABS: PLATELET 164 x1000/uL (130-400)
[2020-05-04] MEDS ORDERED: HEPARIN SODIUM 1,000 UNIT/1ML VIAL IV ONE (09:15)
[2020-05-04] MEDS: ALPRAZOLAM 0.5 MG TABLET PO PRN ×2 (10:16→19:08)
[2020-05-04] MEDS ORDERED: ALPR2TAB2 MT (12:33)
[2020-05-04] MEDS ORDERED: HYDR-4001 MT (12:33)
[2020-05-04] MEDS: DIPHENHYDRAMINE 50MG/ML VIAL IV PRN ×2 (13:23→21:16)
[2020-05-04] MEDS: ACETAMINOPHEN 325MG TABLET PO PRN (17:42)
[2020-05-04] MEDS ORDERED: CLONIDINE 0.1MG TABLET PO PRN (19:00)
[2020-05-04] MEDS: AMLODIPINE 10MG TABLET PO SCH (19:08)
[2020-05-04 19:40] LABS: BASOPHILS % 0.7 % (0.0-2.0); EOSINOPHILS % 1.2 % (0.0-5.0); HEMATOCRIT. 25.5 % (36.0-48.0); HEMOGLOBIN. 8.7 g/dL (12.0-16.0); LYMPHOCYTES % 10.7 % (20.0-50.0); MEAN CORPUSCULAR HEMOGLOBIN 32.3 pg (28.0-32.0); MEAN CORPUSCULAR VOLUME 95.2 fL (81.0-99.0); MEAN PLATELET VOLUME 7.7 fl (7.4-10.4); MONOCYTES % 14.9 % (2.0-8.0); NEUTROPHILS % 72.5 % (40.0-76.0); PLATELET 224 x1000/uL (130-400); RED BLOOD CELL COUNT 2.68 mill/uL (4.2-5.4); RED CELL DISTRIBUTION WIDTH 18.1 % (11.6-14.6)
[2020-05-04] MEDS: PHENYTOIN SODIUM EXTENDED 100MG CAPSULE PO SCH (20:25)
[2020-05-04] MEDS ORDERED: LEVOFLOXACIN 500MG PREMIX 100 ML IV NR (23:00)
[2020-05-05] VITALS: BP 161/86
[2020-05-05] MEDS: HYDROMORPHONE HCL/PF 2MG/ML CPJ IV PRN ×4 (00:22→19:22)
[2020-05-05] MEDS: ALPRAZOLAM 0.5 MG TABLET PO PRN ×3 (03:36→22:43)
[2020-05-05 04:00] VITALS: BP 135/82
[2020-05-05] MEDS: DIPHENHYDRAMINE 50MG/ML VIAL IV PRN ×3 (05:24→23:41)
[2020-05-05] MEDS: HYDRALAZINE HCL 100MG TABLET PO SCH ×3 (06:25→21:06)
[2020-05-05] MEDS: LEVOTHYROXINE SODIUM 100MCG TABLET PO SCH (06:25)
[2020-05-05] MEDS: OMEPRAZOLE 20MG CAPSULE EXTENDED RELEASE PO SCH (06:25)
[2020-05-05 08:00] VITALS: BP 122/75
[2020-05-05] MEDS: ENOXAPARIN 30MG/0.3ML SYR SUBCUT SCH (09:17)
[2020-05-05] MEDS: LOSARTAN POTASSIUM 100 MG TABLET PO SCH (09:17)
[2020-05-05] MEDS: AMLODIPINE 10MG TABLET PO SCH (09:37)
[2020-05-05 12:00] VITALS: BP 135/83
[2020-05-05] MEDS ORDERED: VANCOMYCIN 1250MG in DEXTROSE 5% WATER 250ML IV NR (14:00)
[2020-05-05 16:00] VITALS: BP 141/89
[2020-05-05 20:00] VITALS: BP 155/83
[2020-05-05] MEDS: PHENYTOIN SODIUM EXTENDED 100MG CAPSULE PO SCH (21:07)
[2020-05-06] VITALS: BP 143/83
[2020-05-06] MEDS: HYDROMORPHONE HCL/PF 2MG/ML CPJ IV PRN ×4 (02:14→21:07)
[2020-05-06 04:00] VITALS: BP 131/73
[2020-05-06] MEDS: OMEPRAZOLE 20MG CAPSULE EXTENDED RELEASE PO SCH (06:17)
[2020-05-06] MEDS: HYDRALAZINE HCL 100MG TABLET PO SCH ×3 (06:17→21:02)
[2020-05-06] MEDS: LEVOTHYROXINE SODIUM 100MCG TABLET PO SCH (06:17)
[2020-05-06 06:25] LABS: BASOPHILS % 0.6 % (0.0-2.0); EOSINOPHILS % 2.5 % (0.0-5.0); HEMATOCRIT. 21.1 % (36.0-48.0); HEMOGLOBIN. 7.1 g/dL (12.0-16.0); LYMPHOCYTES % 13.5 % (20.0-50.0); MEAN CORPUSCULAR HEMOGLOBIN 32.3 pg (28.0-32.0); MEAN CORPUSCULAR VOLUME 95.8 fL (81.0-99.0); MEAN PLATELET VOLUME 8.2 fl (7.4-10.4); NEUTROPHILS % 69.4 % (40.0-76.0); PLATELET 165 x1000/uL (130-400); RED CELL DISTRIBUTION WIDTH 18.9 % (11.6-14.6)
[2020-05-06] MEDS: ALPRAZOLAM 0.5 MG TABLET PO PRN ×2 (06:48→16:03)
[2020-05-06 08:00] VITALS: BP 142/88
[2020-05-06] MEDS: AMLODIPINE 10MG TABLET PO SCH (08:50)
[2020-05-06] MEDS: ACETAMINOPHEN 325MG TABLET PO PRN (08:50)
[2020-05-06] MEDS: LOSARTAN POTASSIUM 100 MG TABLET PO SCH (08:50)
[2020-05-06] MEDS: ENOXAPARIN 30MG/0.3ML SYR SUBCUT SCH (08:51)
[2020-05-06] MEDS: DIPHENHYDRAMINE 50MG/ML VIAL IV PRN ×2 (08:51→16:54)
[2020-05-06 12:00] VITALS: BP 155/96
[2020-05-06 16:00] VITALS: BP 147/87
[2020-05-06] MEDS ORDERED: CEFEPIME 1,000 MG in DEXTROSE 5% WATER 50 ML IV SCH (18:00)
[2020-05-06 20:00] VITALS: BP 131/83
[2020-05-06] MEDS ORDERED: LEVOFLOXACIN 250MG PREMIX 50 ML IV SCH (21:00)
[2020-05-06] MEDS: PHENYTOIN SODIUM EXTENDED 100MG CAPSULE PO SCH (21:02)
[2020-05-07] VITALS (10 sets, daily range): BP systolic 129–174; BP diastolic 82–105
[2020-05-07] MEDS: ALPRAZOLAM 0.5 MG TABLET PO PRN ×3 (00:03→17:03)
[2020-05-07] MEDS: DIPHENHYDRAMINE 50MG/ML VIAL IV PRN ×2 (01:04→10:39)
[2020-05-07] MEDS: HYDROMORPHONE HCL/PF 2MG/ML CPJ IV PRN ×4 (03:08→22:52)
[2020-05-07] MEDS: OMEPRAZOLE 20MG CAPSULE EXTENDED RELEASE PO SCH (06:32)
[2020-05-07] MEDS: LEVOTHYROXINE SODIUM 100MCG TABLET PO SCH (06:33)
[2020-05-07] MEDS: HYDRALAZINE HCL 100MG TABLET PO SCH ×3 (06:33→23:42)
[2020-05-07 08:14] LABS: BASOPHILS % 0.6 % (0.0-2.0); EOSINOPHILS % 2.9 % (0.0-5.0); LYMPHOCYTES % 12.2 % (20.0-50.0); MEAN CORPUSCULAR HEMOGLOBIN 32.8 pg (28.0-32.0); MEAN CORPUSCULAR VOLUME 96.7 fL (81.0-99.0); MONOCYTES % 12.8 % (2.0-8.0); NEUTROPHILS % 71.5 % (40.0-76.0); RED BLOOD CELL COUNT 2.09 mill/uL (4.2-5.4); RED CELL DISTRIBUTION WIDTH 18.3 % (11.6-14.6)
[2020-05-07 08:30] LABS: HEMOGLOBIN. 6.9 g/dL (12.0-16.0)
[2020-05-07 08:31] LABS: HEMATOCRIT. 20.2 % (36.0-48.0)
[2020-05-07] MEDS: ENOXAPARIN 30MG/0.3ML SYR SUBCUT SCH (08:43)
[2020-05-07] MEDS: LOSARTAN POTASSIUM 100 MG TABLET PO SCH (08:43)
[2020-05-07] MEDS: AMLODIPINE 10MG TABLET PO SCH (08:43)
[2020-05-07] MEDS: DIPHENHYDRAMINE 25MG CAPSULE PO PRN (14:21)
[2020-05-07] MEDS ORDERED: VANCOMYCIN 750 MG PREMIX 150 ML IV NR (20:00)
[2020-05-07] MEDS ORDERED: CEFEPIME 1,000 MG in DEXTROSE 5% WATER 50 ML IV SCH (20:00)
[2020-05-07] MEDS: DIPHENHYDRAMINE 50MG/ML VIAL IV SCH (20:21)
[2020-05-07] MEDS: PHENYTOIN SODIUM EXTENDED 100MG CAPSULE PO SCH (23:41)
[2020-05-07] MEDS: ACETAMINOPHEN 325MG TABLET PO PRN (23:51)
[2020-05-08] VITALS: BP 176/103
[2020-05-08] MEDS: ALPRAZOLAM 0.5 MG TABLET PO PRN ×2 (00:54→09:22)
[2020-05-08] MEDS: DIPHENHYDRAMINE 50MG/ML VIAL IV PRN (03:03)
[2020-05-08 04:00] VITALS: BP 140/97
[2020-05-08] MEDS: DIPHENHYDRAMINE 50MG/ML VIAL IV SCH ×2 (05:17→13:21)
[2020-05-08] MEDS: HYDRALAZINE HCL 100MG TABLET PO SCH (05:17)
[2020-05-08] MEDS: HYDROMORPHONE HCL/PF 2MG/ML CPJ IV PRN (05:18)
[2020-05-08] MEDS: OMEPRAZOLE 20MG CAPSULE EXTENDED RELEASE PO SCH (06:36)
[2020-05-08] MEDS: LEVOTHYROXINE SODIUM 100MCG TABLET PO SCH (06:36)
[2020-05-08 08:00] VITALS: BP 161/99
[2020-05-08] MEDS: LOSARTAN POTASSIUM 100 MG TABLET PO SCH (09:22)
[2020-05-08] MEDS: AMLODIPINE 10MG TABLET PO SCH (09:22)
[2020-05-08] MEDS: ENOXAPARIN 30MG/0.3ML SYR SUBCUT SCH (09:23)
[2020-05-08 12:59] VITALS: BP 140/97
== END 2020-05-08 14:56 | disposition home or self-care (01) | DRG 721 ==
LOC: ER 04:01 → SUPCPDRO 09:00 → 8WST 09:43 → ENRESERV 11:52 → 8WST 12:42
PROVIDERS: ADMIT Internal Medicine; ATTEND Internal Medicine
PROC: 5A1D70Z Performance of Urinary Filtration, Intermittent, Less than 6 Hours Per Day (ICD-10-PCS; 2020-05-04)
PROC: 30233N1 Transfusion of Nonautologous Red Blood Cells into Peripheral Vein, Percutaneous Approach (ICD-10-PCS; principal; 2020-05-07)
PROC: 5A1D70Z Performance of Urinary Filtration, Intermittent, Less than 6 Hours Per Day (ICD-10-PCS; 2020-05-07)
DX: T80.211A Bloodstream infection due to central venous catheter, initial encounter (principal); A41.9 Sepsis, unspecified organism; S42.294A Other nondisplaced fracture of upper end of right humerus, initial encounter for closed fracture; N18.6 End stage renal disease; E03.9 Hypothyroidism, unspecified; F10.10 Alcohol abuse, uncomplicated; F41.9 Anxiety disorder, unspecified; K29.70 Gastritis, unspecified, without bleeding; K70.30 Alcoholic cirrhosis of liver without ascites; D64.9 Anemia, unspecified; Y90.9 Presence of alcohol in blood, level not specified; W18.39XA Other fall on same level, initial encounter; G40.909 Epilepsy, unspecified, not intractable, without status epilepticus; I13.2 Hypertensive heart and chronic kidney disease with heart failure and with stage 5 chronic kidney disease, or end stage renal disease; I50.9 Heart failure, unspecified; E78.5 Hyperlipidemia, unspecified; Z99.2 Dependence on renal dialysis; Z76.5 Malingerer [conscious simulation]; Z91.010 Allergy to peanuts; Z79.890 Hormone replacement therapy; Z79.899 Other long term (current) drug therapy; Y93.89 Activity, other specified; Y92.89 Other specified places as the place of occurrence of the external cause; Y99.8 Other external cause status
CPT/HCPCS: 36415; 71045; 73030; 80048; 80202; 84145; 85025; 86850; 86900; 86920; 93005; 97110; 97162; 99285; C1893; J0692; J1170; J1200; J1644; J1650; J1956; J3370; J7040; J7060; P9016; Q0163

== ENCOUNTER 2020-05-29 15:22 | Inpatient (IN) | payer MEDICARE, MEDICAID ==
[~2020-05-29] VITALS: Ht 170.2 cm; Wt 62.8 kg
[2020-05-29 18:08] LABS: BASOPHILS % 1.1 % (0.0-2.0); MEAN CORPUSCULAR HEMOGLOBIN 32.4 pg (28.0-32.0); MEAN CORPUSCULAR VOLUME 96.2 fL (81.0-99.0); MEAN PLATELET VOLUME 7.6 fl (7.4-10.4); MONOCYTES % 13.5 % (2.0-8.0); NEUTROPHILS % 68.4 % (40.0-76.0); PLATELET 191 x1000/uL (130-400); RED BLOOD CELL COUNT 1.98 mill/uL (4.2-5.4); RED CELL DISTRIBUTION WIDTH 17.6 % (11.6-14.6)
[2020-05-29 18:11] LABS: HEMATOCRIT. 19.1 % (36.0-48.0); HEMOGLOBIN. 6.4 g/dL (12.0-16.0)
[2020-05-29 18:12] LABS: CHLORIDE 104 mEq/L (98-107)
[2020-05-29] MEDS ORDERED: CALCIUM GLUCONATE 100MG/ML 10ML VIAL IV ONE (20:00)
[2020-05-29] MEDS ORDERED: ONDANSETRON HCL 4MG/2ML INJ IV ONE (20:00)
[2020-05-29] MEDS ORDERED: MORPHINE SULFATE 4 MG/ML CPJ (NOT FOR IM USE) IV ONE (20:00)
[2020-05-29] MEDS ORDERED: LORAZEPAM 2MG/ML CPJ IV PRN (21:45)
[2020-05-29] MEDS: DIPHENHYDRAMINE 50MG/ML VIAL IV PRN (23:03)
[2020-05-30] VITALS (21 sets, daily range): BP systolic 120–178; BP diastolic 65–100
[2020-05-30] MEDS ORDERED: ZOLPIDEM TARTRATE 5MG TABLET PO PRN (02:00)
[2020-05-30] MEDS ORDERED: ALPRAZOLAM 0.5 MG TABLET PO PRN (02:00)
[2020-05-30] MEDS: MORPHINE SULFATE 2 MG/ML CPJ (NOT FOR IM USE) IV PRN ×4 (02:38→17:29)
[2020-05-30] MEDS: LEVOTHYROXINE SODIUM 100MCG TABLET PO SCH (06:09)
[2020-05-30] MEDS: DIPHENHYDRAMINE 50MG/ML VIAL IV PRN ×2 (06:09→15:21)
[2020-05-30] MEDS ORDERED: HYDRALAZINE HCL 50MG TABLET PO SCH (09:00)
[2020-05-30] MEDS: CALCIUM ACETATE 667MG CAPSULE PO SCH ×3 (09:00→17:29)
[2020-05-30] MEDS ORDERED: HEPARIN SODIUM 1,000 UNIT/1ML VIAL IV SCH (09:15)
[2020-05-30] MEDS: FOLIC ACID/VITAMIN B COMP W-C TABLET PO SCH (11:03)
[2020-05-30] MEDS: CARVEDILOL 12.5MG TABLET PO SCH ×2 (11:05→21:55)
[2020-05-30] MEDS ORDERED: DIGOXIN 500MCG/2ML AMP IV NR (11:45)
[2020-05-30 13:29] LABS: HEMATOCRIT 21.4 % (36.0-48.0); HEMOGLOBIN 7.2 g/dL (12.0-16.0)
[2020-05-30] MEDS ORDERED: DIPHENHYDRAMINE 25MG CAPSULE PO PRN (18:00)
[2020-05-30] MEDS: PHENYTOIN SODIUM EXTENDED 100MG CAPSULE PO SCH (21:54)
[2020-05-30] MEDS: HYDRALAZINE HCL 50MG TABLET PO SCH (21:54)
[2020-05-30] MEDS: ALPRAZOLAM 0.5 MG TABLET PO SCH (21:55)
[2020-05-30] MEDS: HYDROMORPHONE HCL/PF 2MG/ML CPJ IV PRN (21:56)
[2020-05-31] VITALS (13 sets, daily range): BP systolic 118–152; BP diastolic 58–91
[2020-05-31] MEDS: ALPRAZOLAM 0.5 MG TABLET PO SCH ×3 (06:18→21:02)
[2020-05-31] MEDS: LEVOTHYROXINE SODIUM 100MCG TABLET PO SCH (06:18)
[2020-05-31 06:22] LABS: MEAN CORPUSCULAR HEMOGLOBIN 31.9 pg (28.0-32.0); MEAN CORPUSCULAR VOLUME 94.7 fL (81.0-99.0); MEAN PLATELET VOLUME 7.7 fl (7.4-10.4); PLATELET 212 x1000/uL (130-400); RED BLOOD CELL COUNT 2.13 mill/uL (4.2-5.4); RED CELL DISTRIBUTION WIDTH 18.1 % (11.6-14.6)
[2020-05-31 06:26] LABS: HEMATOCRIT. 20.2 % (36.0-48.0); HEMOGLOBIN. 6.8 g/dL (12.0-16.0)
[2020-05-31] MEDS: CALCIUM ACETATE 667MG CAPSULE PO SCH ×3 (08:19→16:38)
[2020-05-31] MEDS: FOLIC ACID/VITAMIN B COMP W-C TABLET PO SCH (08:19)
[2020-05-31] MEDS: CARVEDILOL 12.5MG TABLET PO SCH ×2 (08:19→20:57)
[2020-05-31] MEDS: HYDRALAZINE HCL 50MG TABLET PO SCH ×2 (08:20→20:57)
[2020-05-31] MEDS: ENOXAPARIN 30MG/0.3ML SYR SUBCUT SCH (08:21)
[2020-05-31] MEDS: HYDROMORPHONE HCL/PF 2MG/ML CPJ IV PRN ×2 (08:22→21:21)
[2020-05-31 16:31] LABS: PLATELET ESTIMATE NORMAL
[2020-05-31] MEDS: DIPHENHYDRAMINE 25MG CAPSULE PO PRN (16:38)
[2020-05-31] MEDS: PHENYTOIN SODIUM EXTENDED 100MG CAPSULE PO SCH (20:58)
[2020-06-01] VITALS: BP 155/107
[2020-06-01 04:00] VITALS: BP 136/87
[2020-06-01] MEDS: ALPRAZOLAM 0.5 MG TABLET PO SCH (06:05)
[2020-06-01] MEDS: DIPHENHYDRAMINE 25MG CAPSULE PO PRN (06:05)
[2020-06-01] MEDS: LEVOTHYROXINE SODIUM 100MCG TABLET PO SCH (06:05)
[2020-06-01 07:23] LABS: HEMATOCRIT. 25.9 % (36.0-48.0); HEMOGLOBIN. 8.7 g/dL (12.0-16.0); MEAN CORPUSCULAR HEMOGLOBIN 31.4 pg (28.0-32.0); MEAN CORPUSCULAR VOLUME 93.6 fL (81.0-99.0); MEAN PLATELET VOLUME 7.7 fl (7.4-10.4); PLATELET 188 x1000/uL (130-400); RED BLOOD CELL COUNT 2.77 mill/uL (4.2-5.4)
[2020-06-01 08:17] VITALS: BP 128/88
[2020-06-01] MEDS: CALCIUM ACETATE 667MG CAPSULE PO SCH (08:18)
[2020-06-01] MEDS: CARVEDILOL 12.5MG TABLET PO SCH (08:18)
[2020-06-01] MEDS: ENOXAPARIN 30MG/0.3ML SYR SUBCUT SCH (08:18)
[2020-06-01] MEDS: FOLIC ACID/VITAMIN B COMP W-C TABLET PO SCH (08:18)
[2020-06-01] MEDS: HYDRALAZINE HCL 50MG TABLET PO SCH (08:22)
[2020-06-01] MEDS ORDERED: ALPR2TAB2 MT (08:39)
[2020-06-01 10:38] VITALS: BP 129/88
[2020-06-01] MEDS ORDERED: OMEP20CA14 MT (12:34)
[2020-06-01] MEDS ORDERED: HYDR-4135 MT (12:34)
[2020-06-01] MEDS ORDERED: CALC667C MT (12:34)
[2020-06-01] MEDS ORDERED: LOSA100T32 MT (12:34)
[2020-06-01] MEDS ORDERED: PHEN100C4 MT (12:34)
[2020-06-01] MEDS ORDERED: LEVO100T9 MT (12:34)
[2020-06-01] MEDS ORDERED: CARV12.545 MT (12:34)
[2020-06-02 14:27] LABS: PLATELET ESTIMATE NORMAL
== END 2020-06-01 12:19 | disposition home or self-care (01) | DRG 425 ==
LOC: ER 15:34 → 3WST 19:57 → ENRESERV 21:45
PROVIDERS: ADMIT Internal Medicine; ATTEND Internal Medicine
PROC: 30233N1 Transfusion of Nonautologous Red Blood Cells into Peripheral Vein, Percutaneous Approach (ICD-10-PCS; principal; 2020-05-29)
PROC: 5A1D70Z Performance of Urinary Filtration, Intermittent, Less than 6 Hours Per Day (ICD-10-PCS; 2020-05-29)
PROC: 5A1D70Z Performance of Urinary Filtration, Intermittent, Less than 6 Hours Per Day (ICD-10-PCS; 2020-05-30)
PROC: 5A1D70Z Performance of Urinary Filtration, Intermittent, Less than 6 Hours Per Day (ICD-10-PCS; 2020-05-31)
PROC: 5A1D70Z Performance of Urinary Filtration, Intermittent, Less than 6 Hours Per Day (ICD-10-PCS; 2020-06-01)
DX: E87.5 Hyperkalemia (principal); I13.2 Hypertensive heart and chronic kidney disease with heart failure and with stage 5 chronic kidney disease, or end stage renal disease; S42.301A Unspecified fracture of shaft of humerus, right arm, initial encounter for closed fracture; N18.6 End stage renal disease; F10.10 Alcohol abuse, uncomplicated; D64.9 Anemia, unspecified; E03.9 Hypothyroidism, unspecified; F41.9 Anxiety disorder, unspecified; I50.9 Heart failure, unspecified; K29.70 Gastritis, unspecified, without bleeding; K74.60 Unspecified cirrhosis of liver; E05.90 Thyrotoxicosis, unspecified without thyrotoxic crisis or storm; K76.9 Liver disease, unspecified; G40.909 Epilepsy, unspecified, not intractable, without status epilepticus; E87.2 Acidosis; E87.1 Hypo-osmolality and hyponatremia; Y90.9 Presence of alcohol in blood, level not specified; W18.39XA Other fall on same level, initial encounter; Z99.2 Dependence on renal dialysis; Z91.19 Patient's noncompliance with other medical treatment and regimen; Z91.010 Allergy to peanuts; Z79.899 Other long term (current) drug therapy; Z71.41 Alcohol abuse counseling and surveillance of alcoholic; Z91.14 Patient's other noncompliance with medication regimen; Z79.891 Long term (current) use of opiate analgesic; Z76.5 Malingerer [conscious simulation]; Y93.89 Activity, other specified; Y92.89 Other specified places as the place of occurrence of the external cause; Y99.8 Other external cause status
CPT/HCPCS: 36415; 71045; 73030; 80048; 80053; 84484; 85014; 85018; 85025; 86850; 86900; 86920; 93005; 97116; 97162; 99285; J0610; J1170; J1200; J1644; J1650; J2060; J2270; J2405; P9016; P9021; Q0163

== ENCOUNTER 2020-07-25 16:15 | Emergency (ER) | payer MEDICARE, MEDICAID ==
[~2020-07-25] VITALS: Ht 162.6 cm; Wt 57.0 kg
[~2020-07-25 16:15] MED LIST changes: -B50 PO; +CALC667C MT; +CARV12.545 MT; +HYDR-4135 MT; -HYDR-4135 PO; +LEVO100T9 MT; +PHEN100C4 MT; -ZOLP10TA2 PO
[2020-07-25 17:19] LABS: BASOPHILS % 2.5 % (0.0-2.0); CHLORIDE 102 mEq/L (98-107); EOSINOPHILS % 4.9 % (0.0-5.0); HEMATOCRIT. 29.4 % (36.0-48.0); HEMOGLOBIN. 9.6 g/dL (12.0-16.0); LYMPHOCYTES % 25.1 % (20.0-50.0); MEAN CORPUSCULAR HEMOGLOBIN 31.6 pg (28.0-32.0); MEAN CORPUSCULAR VOLUME 96.7 fL (81.0-99.0); MEAN PLATELET VOLUME 7.2 fl (7.4-10.4); MONOCYTES % 8.1 % (2.0-8.0); NEUTROPHILS % 59.4 % (40.0-76.0); PLATELET 268 x1000/uL (130-400); RED BLOOD CELL COUNT 3.04 mill/uL (4.2-5.4); RED CELL DISTRIBUTION WIDTH 17.2 % (11.6-14.6)
[2020-07-25 17:29] LABS: INR 1.1; PROTHROMBIN TIME 11.9 sec (9.6-11.0)
[2020-07-25] MEDS ORDERED: MORPHINE SULFATE 2 MG/ML CPJ (NOT FOR IM USE) IV ONE (19:15)
[2020-07-25] MEDS ORDERED: ACETAMINOPHEN 325MG TABLET PO ONE (19:15)
[2020-07-25] MEDS ORDERED: SODIUM POLYSTYRENE SULFONATE 15 G/60 ML BOT PO ONE (19:15)
[2020-07-25 20:29] VITALS: BP 131/71
== END 2020-07-25 20:35 | disposition home or self-care (01) ==
LOC: ER 16:15
DX: M70.20 Olecranon bursitis, unspecified elbow (principal); Y93.9 Activity, unspecified; E87.5 Hyperkalemia; R56.9 Unspecified convulsions; F41.9 Anxiety disorder, unspecified; K74.60 Unspecified cirrhosis of liver; E03.9 Hypothyroidism, unspecified; I12.0 Hypertensive chronic kidney disease with stage 5 chronic kidney disease or end stage renal disease; E11.22 Type 2 diabetes mellitus with diabetic chronic kidney disease; N18.6 End stage renal disease; Z99.2 Dependence on renal dialysis; Z91.14 Patient's other noncompliance with medication regimen; Z91.15 Patient's noncompliance with renal dialysis
CPT/HCPCS: 36415; 80053; 83690; 84484; 85025; 85610; 93005; 99284; Z7610

== ENCOUNTER 2020-08-13 19:48 | Inpatient (IN) | payer MEDICARE, MEDICAID ==
[~2020-08-13] VITALS: Ht 165.1 cm; Wt 74.8 kg
[2020-08-13] MEDS ORDERED: ONDANSETRON HCL 4MG/2ML INJ IV STA (20:56)
[2020-08-13] MEDS ORDERED: MORPHINE SULFATE 4 MG/ML CPJ (NOT FOR IM USE) IV STA (20:56)
[2020-08-13] MEDS ORDERED: DIPHENHYDRAMINE 50MG/ML VIAL IV ONE (21:00)
[2020-08-13 21:32] LABS: EOSINOPHILS % 3.2 % (0.0-5.0); HEMATOCRIT. 24.6 % (36.0-48.0); HEMOGLOBIN. 8.2 g/dL (12.0-16.0); LYMPHOCYTES % 17.7 % (20.0-50.0); MEAN CORPUSCULAR HEMOGLOBIN 33.4 pg (28.0-32.0); MEAN CORPUSCULAR VOLUME 99.8 fL (81.0-99.0); MEAN PLATELET VOLUME 8.1 fl (7.4-10.4); MONOCYTES % 11.3 % (2.0-8.0); NEUTROPHILS % 66.8 % (40.0-76.0); PLATELET 168 x1000/uL (130-400); RED BLOOD CELL COUNT 2.47 mill/uL (4.2-5.4); RED CELL DISTRIBUTION WIDTH 18.9 % (11.6-14.6)
[2020-08-13 21:38] LABS: CHLORIDE 101 mEq/L (98-107)
[2020-08-13 21:41] LABS: INR 1.1; PROTHROMBIN TIME 11.4 sec (9.6-11.0)
[2020-08-14] MEDS ORDERED: LORAZEPAM 2MG/ML CPJ IV NR (02:15)
[2020-08-14] MEDS ORDERED: MORPHINE SULFATE 2 MG/ML CPJ (NOT FOR IM USE) IV PRN (04:45)
[2020-08-14] MEDS ORDERED: DIPHENHYDRAMINE 50MG CAPSULE PO PRN (08:00)
[2020-08-14] MEDS ORDERED: ACETAMINOPHEN 325MG TABLET PO PRN (08:00)
[2020-08-14] MEDS ORDERED: ONDANSETRON HCL 4MG/2ML INJ IV PRN (08:00)
[2020-08-14] MEDS: ALPRAZOLAM 0.5 MG TABLET PO PRN ×2 (09:03→18:33)
[2020-08-14 09:11] VITALS: BP 147/100
[2020-08-14] MEDS: THIAMINE HCL 100MG TABLET PO SCH (10:07)
[2020-08-14] MEDS: LEVOTHYROXINE SODIUM 100MCG TABLET PO SCH (10:07)
[2020-08-14] MEDS: LOSARTAN POTASSIUM 100 MG TABLET PO SCH (10:07)
[2020-08-14] MEDS: CARVEDILOL 6.25 MG TABLET PO SCH ×2 (10:08→20:37)
[2020-08-14] MEDS: DIPHENHYDRAMINE 50MG/ML VIAL IV PRN ×2 (10:09→23:02)
[2020-08-14] MEDS: HYDROMORPHONE HCL/PF 2MG/ML CPJ IV PRN ×2 (10:18→16:43)
[2020-08-14 12:00] VITALS: BP 149/93
[2020-08-14] MEDS ORDERED: HEPARIN SODIUM 1,000 UNIT/1ML VIAL IV ONE (14:45)
[2020-08-14] MEDS ORDERED: DIPHENHYDRAMINE 50MG/ML VIAL IV NR (15:30)
[2020-08-14] MEDS ORDERED: HYDRALAZINE 20MG/ML VIAL IV SCH (15:45)
[2020-08-14 16:00] VITALS: BP 159/78
[2020-08-14] MEDS: HYDRALAZINE HCL 100MG TABLET PO SCH ×2 (16:00→20:37)
[2020-08-14 20:00] VITALS: BP 156/92
[2020-08-14] MEDS ORDERED: EPOETIN ALFA-EPBX 10,000 UNIT/ML VIAL SUBCUT SCH (21:00)
[2020-08-14] MEDS ORDERED: PHENYTOIN SODIUM EXTENDED 100MG CAPSULE PO SCH (21:00)
[2020-08-14] MEDS: MORPHINE SULFATE 2 MG/ML CPJ (NOT FOR IM USE) IV PRN (23:02)
[2020-08-15] VITALS: BP 134/89
[2020-08-15] MEDS: ALPRAZOLAM 0.5 MG TABLET PO PRN ×2 (02:44→12:31)
[2020-08-15 04:00] VITALS: BP 110/77
[2020-08-15] MEDS: LEVOTHYROXINE SODIUM 100MCG TABLET PO SCH (05:24)
[2020-08-15] MEDS: DIPHENHYDRAMINE 50MG/ML VIAL IV PRN (05:24)
[2020-08-15] MEDS: HYDRALAZINE HCL 100MG TABLET PO SCH ×2 (05:24→13:45)
[2020-08-15] MEDS: MORPHINE SULFATE 2 MG/ML CPJ (NOT FOR IM USE) IV PRN ×2 (05:26→15:45)
[2020-08-15 06:47] LABS: HEMATOCRIT. 24.2 % (36.0-48.0); MEAN CORPUSCULAR HEMOGLOBIN 33.7 pg (28.0-32.0); MEAN CORPUSCULAR VOLUME 101.4 fL (81.0-99.0); MEAN PLATELET VOLUME 8.5 fl (7.4-10.4); PLATELET 167 x1000/uL (130-400); RED BLOOD CELL COUNT 2.38 mill/uL (4.2-5.4); RED CELL DISTRIBUTION WIDTH 19.1 % (11.6-14.6)
[2020-08-15] MEDS ORDERED: OMEPRAZOLE 20MG CAPSULE EXTENDED RELEASE PO SCH (07:10)
[2020-08-15 08:00] VITALS: BP 137/87
[2020-08-15] MEDS: THIAMINE HCL 100MG TABLET PO SCH (09:09)
[2020-08-15] MEDS: CARVEDILOL 6.25 MG TABLET PO SCH (09:09)
[2020-08-15] MEDS: LOSARTAN POTASSIUM 100 MG TABLET PO SCH (09:09)
[2020-08-15] MEDS: CALCIUM ACETATE 667MG CAPSULE PO SCH ×3 (09:09→17:30)
[2020-08-15] MEDS ORDERED: LIDOCAINE HCL 1% 20ML VIAL (Pyxis) INJ ONE (09:49)
[2020-08-15] MEDS: HYDROMORPHONE HCL/PF 2MG/ML CPJ IV PRN (09:49)
[2020-08-15] MEDS ORDERED: SODIUM BICARBONATE 4% (2.4MEQ) 5ML VIAL IV ONE (09:49)
[2020-08-15 12:00] VITALS: BP 144/81
[2020-08-15 13:19] LABS: PLATELET ESTIMATE NORMAL
[2020-08-15] MEDS ORDERED: DIPHENHYDRAMINE 50MG/ML VIAL IV PRN (15:00)
[2020-08-15 16:00] VITALS: BP 140/79
[2020-08-15 17:48] VITALS: BP 20/140
== END 2020-08-15 18:35 | disposition home or self-care (01) ==
LOC: ER 19:48 → 8WST 23:46 → ENRESERV 08-14 07:35
PROVIDERS: ADMIT Internal Medicine; ATTEND Internal Medicine
PROC: 5A1D70Z Performance of Urinary Filtration, Intermittent, Less than 6 Hours Per Day (ICD-10-PCS; 2020-08-14)
PROC: 0W9G3ZZ Drainage of Peritoneal Cavity, Percutaneous Approach (ICD-10-PCS; principal; 2020-08-15)
PROC: 5A1D70Z Performance of Urinary Filtration, Intermittent, Less than 6 Hours Per Day (ICD-10-PCS; 2020-08-15)
DX: K74.60 Unspecified cirrhosis of liver (principal); R18.8 Other ascites; N18.6 End stage renal disease; E11.22 Type 2 diabetes mellitus with diabetic chronic kidney disease; I12.0 Hypertensive chronic kidney disease with stage 5 chronic kidney disease or end stage renal disease; K29.70 Gastritis, unspecified, without bleeding; I51.7 Cardiomegaly; F10.10 Alcohol abuse, uncomplicated; E03.9 Hypothyroidism, unspecified; F41.9 Anxiety disorder, unspecified; D72.819 Decreased white blood cell count, unspecified; E05.90 Thyrotoxicosis, unspecified without thyrotoxic crisis or storm; D63.8 Anemia in other chronic diseases classified elsewhere; Z20.822 Contact with and (suspected) exposure to COVID-19; Y90.9 Presence of alcohol in blood, level not specified; Z99.2 Dependence on renal dialysis; Z88.8 Allergy status to other drugs, medicaments and biological substances; Z91.010 Allergy to peanuts; Z79.890 Hormone replacement therapy; Z79.899 Other long term (current) drug therapy; Z79.891 Long term (current) use of opiate analgesic; Z76.5 Malingerer [conscious simulation]; Z71.41 Alcohol abuse counseling and surveillance of alcoholic; Z82.49 Family history of ischemic heart disease and other diseases of the circulatory system
CPT/HCPCS: 36415; 49083; 71045; 80048; 80053; 85025; 87426; 93005; 96374; 99285; C1893; J0885; J1170; J1200; J2060; J2270; J2405; J3490

== ENCOUNTER 2020-10-06 20:08 | Emergency (ER) | payer MEDICARE, MEDICAID ==
[~2020-10-06] VITALS: Ht 160 cm; Wt 61.0 kg
[2020-10-06] MEDS ORDERED: HYDROCODONE/ACETAMINOPHEN 5/325MG TABLET PO ONE (22:45)
[2020-10-06 22:51] LABS: HEMATOCRIT. 21.5 % (36.0-48.0); HEMOGLOBIN. 7.3 g/dL (12.0-16.0); MEAN CORPUSCULAR HEMOGLOBIN 33.3 pg (28.0-32.0); MEAN CORPUSCULAR VOLUME 97.4 fL (81.0-99.0); MEAN PLATELET VOLUME 6.6 fl (7.4-10.4); PLATELET 221 x1000/uL (130-400); RED CELL DISTRIBUTION WIDTH 16.9 % (11.6-14.6)
[2020-10-06 22:57] LABS: CHLORIDE 100 mEq/L (98-107)
[2020-10-06 23:05] LABS: CREATINE KINASE 50 IU/L (26-192)
[2020-10-06 23:24] LABS: PLATELET ESTIMATE NORMAL
[2020-10-07] MEDS ORDERED: MORPHINE SULFATE 4 MG/ML CPJ (NOT FOR IM USE) IV ONE (01:30)
[2020-10-07 04:00] VITALS: BP 150/94
== END 2020-10-07 06:02 | disposition home or self-care (01) ==
LOC: ER 20:08
DX: D64.9 Anemia, unspecified (principal); I12.0 Hypertensive chronic kidney disease with stage 5 chronic kidney disease or end stage renal disease; F17.290 Nicotine dependence, other tobacco product, uncomplicated; N18.6 End stage renal disease; Z99.2 Dependence on renal dialysis; Z79.899 Other long term (current) drug therapy
CPT/HCPCS: 36415; 71045; 80053; 82550; 84484; 85025; 86850; 86900; 86901; 86920; 93005; 96374; 99285; J2270; J7040; P9016

== ENCOUNTER 2020-10-19 13:15 | Inpatient (IN) | payer MEDICARE, MEDICAID ==
[~2020-10-19] VITALS: Ht 170.2 cm; Wt 56.7 kg
[2020-10-19] MEDS ORDERED: MORPHINE SULFATE 4 MG/ML CPJ (NOT FOR IM USE) IV STA (13:40)
[2020-10-19 15:25] LABS: HEMATOCRIT. 21.4 % (36.0-48.0); HEMOGLOBIN. 7.4 g/dL (12.0-16.0); MEAN CORPUSCULAR HEMOGLOBIN 32.6 pg (28.0-32.0); MEAN CORPUSCULAR VOLUME 94.2 fL (81.0-99.0); MEAN PLATELET VOLUME 7.9 fl (7.4-10.4); PLATELET 127 x1000/uL (130-400); RED BLOOD CELL COUNT 2.27 mill/uL (4.2-5.4); RED CELL DISTRIBUTION WIDTH 16.4 % (11.6-14.6)
[2020-10-19 15:27] LABS: INR 1.1; PROTHROMBIN TIME 11.7 sec (9.6-11.0)
[2020-10-19 15:32] LABS: CHLORIDE 100 mEq/L (98-107)
[2020-10-19 15:37] LABS: PHOSPHORUS 2.1 mg/dL (2.5-4.9)
[2020-10-19 17:18] LABS: PLATELET ESTIMATE SLIGHTLY DECREASED
[2020-10-19] MEDS ORDERED: DIPHENHYDRAMINE 50MG/ML VIAL IV ONE (17:30)
[2020-10-19 23:00] VITALS: BP 174/124
[2020-10-19 23:15] VITALS: BP 174/124
[2020-10-19] MEDS ORDERED: DIPHENHYDRAMINE 50MG CAPSULE PO PRN (23:30)
[2020-10-19] MEDS ORDERED: LOSARTAN POTASSIUM 100 MG TABLET PO ONE (23:30)
[2020-10-19] MEDS ORDERED: ACETAMINOPHEN 325MG TABLET PO PRN (23:45)
[2020-10-20] MEDS: ALPRAZOLAM 0.5 MG TABLET PO PRN ×3 (00:05→18:22)
[2020-10-20] MEDS: CLONIDINE 0.1MG TABLET PO PRN (00:06)
[2020-10-20] MEDS: HYDROCODONE/ACETAMINOPHEN 10/325MG TABLET PO PRN ×2 (00:07→05:34)
[2020-10-20 00:30] VITALS: BP 150/90
[2020-10-20 04:00] VITALS: BP 134/80
[2020-10-20] MEDS: LEVOTHYROXINE SODIUM 100MCG TABLET PO SCH (05:34)
[2020-10-20 08:00] VITALS: BP 162/113
[2020-10-20] MEDS: SEVELAMER CARBONATE 800 MG TABLET PO SCH ×3 (08:58→18:22)
[2020-10-20] MEDS: CARVEDILOL 12.5MG TABLET PO SCH ×2 (08:59→21:01)
[2020-10-20] MEDS: LOSARTAN POTASSIUM 100 MG TABLET PO SCH (09:00)
[2020-10-20] MEDS: AMLODIPINE 10MG TABLET PO SCH (09:00)
[2020-10-20] MEDS: FOLIC ACID/VITAMIN B COMP W-C TABLET PO SCH (09:04)
[2020-10-20] MEDS: MORPHINE SULFATE 2 MG/ML CPJ (NOT FOR IM USE) IV PRN ×3 (09:22→23:21)
[2020-10-20 09:46] LABS: HEMATOCRIT. 23.6 % (36.0-48.0); MEAN CORPUSCULAR HEMOGLOBIN 31.8 pg (28.0-32.0); MEAN CORPUSCULAR VOLUME 93.2 fL (81.0-99.0); MEAN PLATELET VOLUME 8.2 fl (7.4-10.4); PLATELET 126 x1000/uL (130-400); RED BLOOD CELL COUNT 2.53 mill/uL (4.2-5.4); RED CELL DISTRIBUTION WIDTH 16.6 % (11.6-14.6)
[2020-10-20 10:22] LABS: PHOSPHORUS 2.7 mg/dL (2.5-4.9)
[2020-10-20] MEDS ORDERED: ONDANSETRON HCL 4MG/2ML INJ IV PRN (11:30)
[2020-10-20] MEDS ORDERED: DOCUSATE SODIUM 100MG CAPSULE PO PRN (11:30)
[2020-10-20] MEDS ORDERED: MAGNESIUM/ALUMINUM HYDROXIDE/SIMETHICONE 30ML UDC PO PRN (11:30)
[2020-10-20 12:00] VITALS: BP 156/109
[2020-10-20 12:28] LABS: TOTAL IRON BINDING CAPACITY 104 ug/dL (250-450)
[2020-10-20] MEDS: PANTOPRAZOLE SODIUM 40 MG/VIAL IV SCH (13:05)
[2020-10-20] MEDS: DIPHENHYDRAMINE 50MG/ML VIAL IV PRN ×2 (13:05→21:01)
[2020-10-20 16:00] VITALS: BP 152/105
[2020-10-20 20:00] VITALS: BP 150/96
[2020-10-20] MEDS: PHENYTOIN SODIUM EXTENDED 100MG CAPSULE PO SCH (21:01)
[2020-10-21] MEDS: ALPRAZOLAM 0.5 MG TABLET PO PRN ×3 (02:28→18:31)
[2020-10-21] MEDS: MORPHINE SULFATE 2 MG/ML CPJ (NOT FOR IM USE) IV PRN ×5 (03:47→23:04)
[2020-10-21 04:00] VITALS: BP 163/113
[2020-10-21] MEDS: CLONIDINE 0.1MG TABLET PO PRN (04:33)
[2020-10-21] MEDS: DIPHENHYDRAMINE 50MG/ML VIAL IV PRN ×3 (05:06→21:18)
[2020-10-21] MEDS: LEVOTHYROXINE SODIUM 100MCG TABLET PO SCH (06:13)
[2020-10-21 07:01] LABS: HEMATOCRIT. 25.8 % (36.0-48.0); HEMOGLOBIN. 8.6 g/dL (12.0-16.0); MEAN CORPUSCULAR HEMOGLOBIN 31.4 pg (28.0-32.0); MEAN CORPUSCULAR VOLUME 94.4 fL (81.0-99.0); MEAN PLATELET VOLUME 8.1 fl (7.4-10.4); PLATELET 139 x1000/uL (130-400); RED BLOOD CELL COUNT 2.73 mill/uL (4.2-5.4); RED CELL DISTRIBUTION WIDTH 16.7 % (11.6-14.6)
[2020-10-21 08:00] VITALS: BP 137/94
[2020-10-21 08:02] LABS: PHOSPHORUS 3.3 mg/dL (2.5-4.9)
[2020-10-21] MEDS: LOSARTAN POTASSIUM 100 MG TABLET PO SCH (08:55)
[2020-10-21] MEDS: SEVELAMER CARBONATE 800 MG TABLET PO SCH ×3 (08:55→18:31)
[2020-10-21] MEDS: PANTOPRAZOLE SODIUM 40 MG/VIAL IV SCH (08:55)
[2020-10-21] MEDS: CARVEDILOL 12.5MG TABLET PO SCH ×2 (08:55→21:14)
[2020-10-21] MEDS: FOLIC ACID/VITAMIN B COMP W-C TABLET PO SCH (08:55)
[2020-10-21 09:44] LABS: PLATELET ESTIMATE SLIGHTLY DECREASED
[2020-10-21] MEDS: AMLODIPINE 10MG TABLET PO SCH (10:39)
[2020-10-21 12:00] VITALS: BP 142/91
[2020-10-21 13:33] LABS: PLATELET ESTIMATE NORMAL
[2020-10-21 16:00] VITALS: BP 140/95
[2020-10-21 21:00] VITALS: BP 150/98
[2020-10-21] MEDS: PHENYTOIN SODIUM EXTENDED 100MG CAPSULE PO SCH (21:14)
[2020-10-22] VITALS: BP 146/92
[2020-10-22] MEDS: ALPRAZOLAM 0.5 MG TABLET PO PRN ×3 (02:42→20:09)
[2020-10-22] MEDS: MORPHINE SULFATE 2 MG/ML CPJ (NOT FOR IM USE) IV PRN ×5 (03:57→23:39)
[2020-10-22 04:00] VITALS: BP 148/91
[2020-10-22] MEDS: DIPHENHYDRAMINE 50MG/ML VIAL IV PRN ×3 (05:19→21:38)
[2020-10-22] MEDS: LEVOTHYROXINE SODIUM 100MCG TABLET PO SCH (06:08)
[2020-10-22 06:47] LABS: HEMATOCRIT. 25.3 % (36.0-48.0); HEMOGLOBIN. 8.4 g/dL (12.0-16.0); MEAN CORPUSCULAR HEMOGLOBIN 31.8 pg (28.0-32.0); MEAN CORPUSCULAR VOLUME 96.2 fL (81.0-99.0); MEAN PLATELET VOLUME 8.2 fl (7.4-10.4); PLATELET 128 x1000/uL (130-400); RED BLOOD CELL COUNT 2.63 mill/uL (4.2-5.4); RED CELL DISTRIBUTION WIDTH 16.6 % (11.6-14.6)
[2020-10-22 08:00] VITALS: BP 147/100
[2020-10-22] MEDS: PANTOPRAZOLE SODIUM 40 MG/VIAL IV SCH (08:54)
[2020-10-22] MEDS: AMLODIPINE 10MG TABLET PO SCH (08:55)
[2020-10-22] MEDS: SEVELAMER CARBONATE 800 MG TABLET PO SCH ×3 (08:55→17:18)
[2020-10-22] MEDS: CARVEDILOL 12.5MG TABLET PO SCH (08:55)
[2020-10-22] MEDS: FOLIC ACID/VITAMIN B COMP W-C TABLET PO SCH (08:56)
[2020-10-22] MEDS: LOSARTAN POTASSIUM 100 MG TABLET PO SCH (08:56)
[2020-10-22 09:43] LABS: NUCLEATED RED BLOOD CELLS 1 /100 WBC; PLATELET ESTIMATE SLIGHTLY DECREASED
[2020-10-22 12:00] VITALS: BP 138/92
[2020-10-22 16:00] VITALS: BP 140/100
[2020-10-22] MEDS: AMLODIPINE 5MG TABLET PO SCH (17:17)
[2020-10-22] MEDS: CLONIDINE 0.1MG TABLET PO SCH (17:18)
[2020-10-22 20:00] VITALS: BP 141/88
[2020-10-22] MEDS: METOPROLOL TARTRATE 50MG TABLET PO SCH (21:33)
[2020-10-22] MEDS: PHENYTOIN SODIUM EXTENDED 100MG CAPSULE PO SCH (21:33)
[2020-10-23] VITALS: BP 144/84
[2020-10-23] MEDS: CLONIDINE 0.1MG TABLET PO SCH ×3 (02:36→17:02)
[2020-10-23] MEDS: MORPHINE SULFATE 2 MG/ML CPJ (NOT FOR IM USE) IV PRN ×3 (03:48→12:06)
[2020-10-23 04:00] VITALS: BP 146/81
[2020-10-23] MEDS: ALPRAZOLAM 0.5 MG TABLET PO PRN (04:40)
[2020-10-23] MEDS: DIPHENHYDRAMINE 50MG/ML VIAL IV PRN (06:05)
[2020-10-23] MEDS: LEVOTHYROXINE SODIUM 100MCG TABLET PO SCH (06:05)
[2020-10-23 07:13] LABS: HIV SCREEN 4G Non Reactive (Non Reactive)
[2020-10-23 08:00] VITALS: BP 126/85
[2020-10-23] MEDS: PANTOPRAZOLE SODIUM 40 MG/VIAL IV SCH (08:28)
[2020-10-23] MEDS: FOLIC ACID/VITAMIN B COMP W-C TABLET PO SCH (08:29)
[2020-10-23] MEDS: SEVELAMER CARBONATE 800 MG TABLET PO SCH ×3 (08:29→17:13)
[2020-10-23] MEDS: METOPROLOL TARTRATE 50MG TABLET PO SCH (08:29)
[2020-10-23] MEDS: AMLODIPINE 5MG TABLET PO SCH ×2 (08:30→17:00)
[2020-10-23] MEDS: LOSARTAN POTASSIUM 100 MG TABLET PO SCH (08:30)
[2020-10-23 10:31] LABS: BASOPHILS % 1.1 % (0.0-2.0); EOSINOPHILS % 5.7 % (0.0-5.0); HEMATOCRIT. 24.8 % (36.0-48.0); LYMPHOCYTES % 27.5 % (20.0-50.0); MEAN CORPUSCULAR VOLUME 98.6 fL (81.0-99.0); MEAN PLATELET VOLUME 8.4 fl (7.4-10.4); MONOCYTES % 14.4 % (2.0-8.0); NEUTROPHILS % 51.3 % (40.0-76.0); PLATELET 136 x1000/uL (130-400); RED BLOOD CELL COUNT 2.51 mill/uL (4.2-5.4); RED CELL DISTRIBUTION WIDTH 16.6 % (11.6-14.6)
[2020-10-23] MEDS ORDERED: LIDOCAINE HCL 1% 20ML VIAL (Pyxis) INJ ONE ×2 (10:46→12:41)
[2020-10-23 12:00] VITALS: BP 130/90
[2020-10-23] MEDS ORDERED: PROPOFOL 200MG/20ML VIAL IV ONE (13:13)
[2020-10-23] MEDS ORDERED: PHENYLEPHRINE HCL 10 MG/ML 1ML (IV VIAL) IV ONE (13:18)
[2020-10-23] MEDS ORDERED: SODIUM CHLORIDE 0.9% 10ML VIAL ONE ×3 (13:21→13:34)
[2020-10-23] MEDS ORDERED: DIPHENHYDRAMINE 50MG/ML VIAL IV ONE (15:00)
[2020-10-23] MEDS ORDERED: HEPARIN SODIUM 1,000 UNIT/1ML VIAL IV NR (15:09)
[2020-10-23] MEDS ORDERED: DIPHENHYDRAMINE 50MG/ML VIAL IV NR (15:15)
[2020-10-23 16:00] VITALS: BP 113/67
[2020-10-23] MEDS: HYDROCODONE/ACETAMINOPHEN 10/325MG TABLET PO PRN (16:23)
[2020-10-23 17:50] VITALS: BP 113/67
== END 2020-10-23 19:15 | disposition home or self-care (01) | DRG 663 ==
LOC: ER 13:15 → 8WST 18:04 → ENRESERV 20:20 → 8WST 10-20 13:46
PROVIDERS: ADMIT Internal Medicine; ATTEND Internal Medicine
PROC: 30233N1 Transfusion of Nonautologous Red Blood Cells into Peripheral Vein, Percutaneous Approach (ICD-10-PCS; 2020-10-19)
PROC: 5A1D70Z Performance of Urinary Filtration, Intermittent, Less than 6 Hours Per Day (ICD-10-PCS; 2020-10-20)
PROC: 07DQ3ZX Extraction of Sternum Bone Marrow, Percutaneous Approach, Diagnostic (ICD-10-PCS; principal; 2020-10-23)
PROC: 02HV33Z Insertion of Infusion Device into Superior Vena Cava, Percutaneous Approach (ICD-10-PCS; 2020-10-23)
PROC: B518ZZA Fluoroscopy of Superior Vena Cava, Guidance (ICD-10-PCS; 2020-10-23)
PROC: B548ZZA Ultrasonography of Superior Vena Cava, Guidance (ICD-10-PCS; 2020-10-23)
PROC: 0W9G3ZZ Drainage of Peritoneal Cavity, Percutaneous Approach (ICD-10-PCS; 2020-10-23)
PROC: 5A1D70Z Performance of Urinary Filtration, Intermittent, Less than 6 Hours Per Day (ICD-10-PCS; 2020-10-23)
DX: D64.9 Anemia, unspecified (principal); I13.2 Hypertensive heart and chronic kidney disease with heart failure and with stage 5 chronic kidney disease, or end stage renal disease; N18.6 End stage renal disease; E83.39 Other disorders of phosphorus metabolism; E87.5 Hyperkalemia; K86.1 Other chronic pancreatitis; R18.8 Other ascites; K70.9 Alcoholic liver disease, unspecified; D61.818 Other pancytopenia; E03.9 Hypothyroidism, unspecified; E78.5 Hyperlipidemia, unspecified; F10.10 Alcohol abuse, uncomplicated; G40.909 Epilepsy, unspecified, not intractable, without status epilepticus; I50.9 Heart failure, unspecified; K29.70 Gastritis, unspecified, without bleeding; K74.60 Unspecified cirrhosis of liver; E05.90 Thyrotoxicosis, unspecified without thyrotoxic crisis or storm; Z20.822 Contact with and (suspected) exposure to COVID-19; F41.9 Anxiety disorder, unspecified; K57.90 Diverticulosis of intestine, part unspecified, without perforation or abscess without bleeding; Y90.9 Presence of alcohol in blood, level not specified; Z82.49 Family history of ischemic heart disease and other diseases of the circulatory system; Z91.19 Patient's noncompliance with other medical treatment and regimen; Z99.2 Dependence on renal dialysis; Z91.010 Allergy to peanuts; Z79.899 Other long term (current) drug therapy; Z79.891 Long term (current) use of opiate analgesic; Z76.5 Malingerer [conscious simulation]
CPT/HCPCS: 36415; 36573; 38220; 49083; 71045; 74176; 76705; 80048; 80061; 80069; 80076; 82040; 83010; 83540; 83550; 83605; 83615; 83735; 84100; 84443; 84484; 85025; 85044; 85060; 85097; 86850; 86880; 86900; 86920; 87389; 87426; 88313; 93005; 93306; 93970; 97162; 99291; C1725; C1893; C9113; J1200; J1644; J2270; J2370; J2405; J2704; J3490; J7040; J7060; P9021; Q0163

== ENCOUNTER 2021-04-11 15:53 | Inpatient (IN) | payer MEDICARE, MEDICAID ==
[~2021-04-11] VITALS: Ht 170.2 cm; Wt 67.6 kg
[~2021-04-11 15:53] MED LIST changes: +AMLO5TAB88 PO; -CARV12.545 MT; +COR12 MT; +HYDR-4135 PO; -LEVO100T MT; +LEVO100T PO; -LEVO100T9 MT; +PHEN300C6 PO
[2021-04-11] MEDS ORDERED: DEXTROSE 50% WATER 50ML SYRINGE IV ONE (16:15)
[2021-04-11 16:57] LABS: HEMATOCRIT. 23.2 % (36.0-48.0); HEMOGLOBIN. 7.6 g/dL (12.0-16.0); MEAN CORPUSCULAR VOLUME 97.2 fL (81.0-99.0); MEAN PLATELET VOLUME 6.9 fl (7.4-10.4); PLATELET 298 x1000/uL (130-400); RED BLOOD CELL COUNT 2.39 mill/uL (4.2-5.4); RED CELL DISTRIBUTION WIDTH 16.6 % (11.6-14.6)
[2021-04-11] MEDS ORDERED: MORPHINE SULFATE 4 MG/ML CPJ (NOT FOR IM USE) IV ONE (17:00)
[2021-04-11] MEDS ORDERED: DIPHENHYDRAMINE 50MG/ML VIAL IV ONE (17:00)
[2021-04-11 17:04] LABS: CHLORIDE 93 mEq/L (98-107)
[2021-04-11 17:06] LABS: INR 1.3; PROTHROMBIN TIME 13.6 sec (9.6-11.0)
[2021-04-11 17:43] LABS: PLATELET ESTIMATE NORMAL
[2021-04-11] MEDS ORDERED: LORAZEPAM 2MG/ML CPJ IV ONE (19:30)
[2021-04-11 20:40] VITALS: BP_SYST 136; BP_SYST 139; BP_DIAS 69; BP_DIAS 73
[2021-04-11] MEDS ORDERED: CLONIDINE 0.1MG TABLET PO PRN (23:00)
[2021-04-11] MEDS ORDERED: DOCUSATE SODIUM 100MG CAPSULE PO PRN (23:00)
[2021-04-11] MEDS ORDERED: ONDANSETRON HCL 4MG/2ML INJ IV PRN (23:00)
[2021-04-11] MEDS ORDERED: MAGNESIUM/ALUMINUM HYDROXIDE/SIMETHICONE 30ML UDC PO PRN (23:00)
[2021-04-11] MEDS ORDERED: GUAIFENESIN 200MG/10ML SUGAR FREE UDC PO PRN (23:00)
[2021-04-11] MEDS ORDERED: ACETAMINOPHEN 325MG TABLET PO PRN (23:00)
[2021-04-11] MEDS ORDERED: HYDROCODONE/ACETAMINOPHEN 5/325MG TABLET PO PRN (23:00)
[2021-04-11] MEDS ORDERED: ALPRAZOLAM 0.25 MG TABLET PO PRN (23:15)
[2021-04-11] MEDS ORDERED: NALOXONE HCL 0.4 MG/ML 1ML VIAL IV PRN (23:15)
[2021-04-11] MEDS: MORPHINE SULFATE 2 MG/ML CPJ (NOT FOR IM USE) IV PRN (23:23)
[2021-04-11] MEDS: DIPHENHYDRAMINE 50MG/ML VIAL IV PRN (23:23)
[2021-04-12] VITALS: BP 134/73
[2021-04-12] MEDS: MORPHINE SULFATE 2 MG/ML CPJ (NOT FOR IM USE) IV PRN ×5 (03:31→21:52)
[2021-04-12] MEDS: DIPHENHYDRAMINE 50MG/ML VIAL IV PRN ×5 (03:31→21:50)
[2021-04-12 04:00] VITALS: BP 177/86
[2021-04-12 08:00] VITALS: BP 177/101
[2021-04-12 08:24] LABS: HEMOGLOBIN. 7.1 g/dL (12.0-16.0); MEAN CORPUSCULAR HEMOGLOBIN 33.2 pg (28.0-32.0); MEAN CORPUSCULAR VOLUME 93.5 fL (81.0-99.0); MEAN PLATELET VOLUME 6.9 fl (7.4-10.4); PLATELET 200 x1000/uL (130-400); RED BLOOD CELL COUNT 2.13 mill/uL (4.2-5.4); RED CELL DISTRIBUTION WIDTH 16.2 % (11.6-14.6)
[2021-04-12] MEDS: AMLODIPINE 10MG TABLET PO SCH (08:32)
[2021-04-12 08:37] LABS: HEMATOCRIT. 19.9 % (36.0-48.0)
[2021-04-12 08:39] LABS: CHLORIDE 99 mEq/L (98-107)
[2021-04-12] MEDS: CARVEDILOL 12.5MG TABLET PO SCH ×2 (09:00→17:00)
[2021-04-12] MEDS ORDERED: ALPRAZOLAM 0.25 MG TABLET PO PRN (09:00)
[2021-04-12] MEDS: FOLIC ACID/VITAMIN B COMP W-C TABLET PO SCH (10:07)
[2021-04-12] MEDS: CALCIUM ACETATE 667MG CAPSULE PO SCH ×3 (10:07→17:48)
[2021-04-12] MEDS: HYDRALAZINE HCL 50MG TABLET PO SCH ×2 (10:07→20:20)
[2021-04-12] MEDS: LOSARTAN POTASSIUM 100 MG TABLET PO SCH (10:07)
[2021-04-12] MEDS: ALPRAZOLAM 0.5 MG TABLET PO PRN ×2 (10:07→19:07)
[2021-04-12] MEDS: OMEPRAZOLE 20MG CAPSULE EXTENDED RELEASE PO SCH (10:08)
[2021-04-12] MEDS: LEVOTHYROXINE SODIUM 100MCG TABLET PO SCH (10:08)
[2021-04-12 12:00] VITALS: BP 130/81
[2021-04-12 16:00] VITALS: BP 142/92
[2021-04-12 20:00] VITALS: BP 146/89
[2021-04-12] MEDS: PHENYTOIN SODIUM EXTENDED 100MG CAPSULE PO SCH (20:20)
[2021-04-12] MEDS ORDERED: EPOETIN ALFA-EPBX 10,000 UNIT/ML VIAL SUBCUT SCH (21:00)
[2021-04-13] VITALS: BP 128/87
[2021-04-13] MEDS: DIPHENHYDRAMINE 50MG/ML VIAL IV PRN ×6 (01:54→23:28)
[2021-04-13] MEDS: MORPHINE SULFATE 2 MG/ML CPJ (NOT FOR IM USE) IV PRN ×6 (02:02→23:28)
[2021-04-13] MEDS: ALPRAZOLAM 0.5 MG TABLET PO PRN ×3 (03:06→20:41)
[2021-04-13 04:00] VITALS: BP 149/84
[2021-04-13] MEDS: LEVOTHYROXINE SODIUM 100MCG TABLET PO SCH (06:00)
[2021-04-13] MEDS: CALCIUM ACETATE 667MG CAPSULE PO SCH ×3 (06:00→19:01)
[2021-04-13 08:00] VITALS: BP 130/78
[2021-04-13] MEDS: CARVEDILOL 12.5MG TABLET PO SCH ×2 (09:00→17:00)
[2021-04-13] MEDS: AMLODIPINE 10MG TABLET PO SCH (09:38)
[2021-04-13] MEDS: HYDRALAZINE HCL 50MG TABLET PO SCH ×2 (09:38→20:41)
[2021-04-13] MEDS: FOLIC ACID/VITAMIN B COMP W-C TABLET PO SCH (09:38)
[2021-04-13] MEDS: OMEPRAZOLE 20MG CAPSULE EXTENDED RELEASE PO SCH (09:38)
[2021-04-13] MEDS: LOSARTAN POTASSIUM 100 MG TABLET PO SCH (09:38)
[2021-04-13 12:00] VITALS: BP 141/75
[2021-04-13 13:16] LABS: HEMATOCRIT. 23.4 % (36.0-48.0); HEMOGLOBIN. 7.7 g/dL (12.0-16.0); MEAN CORPUSCULAR HEMOGLOBIN 31.4 pg (28.0-32.0); MEAN CORPUSCULAR VOLUME 95.2 fL (81.0-99.0); MEAN PLATELET VOLUME 7.3 fl (7.4-10.4); PLATELET 219 x1000/uL (130-400); RED BLOOD CELL COUNT 2.46 mill/uL (4.2-5.4); RED CELL DISTRIBUTION WIDTH 16.5 % (11.6-14.6)
[2021-04-13 15:06] LABS: PLATELET ESTIMATE NORMAL
[2021-04-13 16:00] VITALS: BP 128/74
[2021-04-13 20:00] VITALS: BP 169/96
[2021-04-13] MEDS: PHENYTOIN SODIUM EXTENDED 100MG CAPSULE PO SCH (20:41)
[2021-04-13 21:44] LABS: PLATELET ESTIMATE NORMAL
[2021-04-14] VITALS: BP 144/84
[2021-04-14] MEDS: DIPHENHYDRAMINE 50MG/ML VIAL IV PRN ×2 (02:40→09:05)
[2021-04-14] MEDS: MORPHINE SULFATE 2 MG/ML CPJ (NOT FOR IM USE) IV PRN ×2 (02:40→08:58)
[2021-04-14 03:29] VITALS: BP 145/82
[2021-04-14] MEDS: ALPRAZOLAM 0.5 MG TABLET PO PRN ×2 (03:58→12:06)
[2021-04-14] MEDS: LEVOTHYROXINE SODIUM 100MCG TABLET PO SCH (06:29)
[2021-04-14] MEDS ORDERED: FAMOTIDINE 20MG TABLET PO SCH (07:10)
[2021-04-14 07:31] LABS: HEMATOCRIT. 21.9 % (36.0-48.0); HEMOGLOBIN. 7.3 g/dL (12.0-16.0); MEAN CORPUSCULAR HEMOGLOBIN 32.1 pg (28.0-32.0); MEAN CORPUSCULAR VOLUME 95.9 fL (81.0-99.0); MEAN PLATELET VOLUME 7.4 fl (7.4-10.4); PLATELET 203 x1000/uL (130-400); RED BLOOD CELL COUNT 2.28 mill/uL (4.2-5.4); RED CELL DISTRIBUTION WIDTH 16.4 % (11.6-14.6)
[2021-04-14] MEDS: CALCIUM ACETATE 667MG CAPSULE PO SCH (07:40)
[2021-04-14 08:00] VITALS: BP 152/86
[2021-04-14] MEDS: AMLODIPINE 10MG TABLET PO SCH (08:54)
[2021-04-14] MEDS: FOLIC ACID/VITAMIN B COMP W-C TABLET PO SCH (08:54)
[2021-04-14] MEDS: LOSARTAN POTASSIUM 100 MG TABLET PO SCH (08:54)
[2021-04-14] MEDS: CARVEDILOL 12.5MG TABLET PO SCH (09:00)
[2021-04-14 12:00] VITALS: BP 163/94
[2021-04-14 12:27] VITALS: BP 163/94
[2021-04-14 13:15] LABS: PLATELET ESTIMATE NORMAL
== END 2021-04-14 13:00 | disposition home or self-care (01) | DRG 194 ==
LOC: ER 15:53 → 8WST 19:06 → ENRESERV 20:02 → 8WST 23:20
PROVIDERS: ADMIT Hospitalist; ATTEND Hospitalist
PROC: 5A1D70Z Performance of Urinary Filtration, Intermittent, Less than 6 Hours Per Day (ICD-10-PCS; principal; 2021-04-13)
DX: I13.2 Hypertensive heart and chronic kidney disease with heart failure and with stage 5 chronic kidney disease, or end stage renal disease (principal); E43 Unspecified severe protein-calorie malnutrition; N18.6 End stage renal disease; D63.1 Anemia in chronic kidney disease; I50.33 Acute on chronic diastolic (congestive) heart failure; F41.9 Anxiety disorder, unspecified; G40.909 Epilepsy, unspecified, not intractable, without status epilepticus; E11.22 Type 2 diabetes mellitus with diabetic chronic kidney disease; K74.60 Unspecified cirrhosis of liver; Z99.2 Dependence on renal dialysis; F10.10 Alcohol abuse, uncomplicated; E78.5 Hyperlipidemia, unspecified; E03.9 Hypothyroidism, unspecified; F17.200 Nicotine dependence, unspecified, uncomplicated; G89.4 Chronic pain syndrome; E05.90 Thyrotoxicosis, unspecified without thyrotoxic crisis or storm; Z91.018 Allergy to other foods; Z91.010 Allergy to peanuts; Z88.8 Allergy status to other drugs, medicaments and biological substances; Z79.01 Long term (current) use of anticoagulants; Z79.899 Other long term (current) drug therapy; Z82.49 Family history of ischemic heart disease and other diseases of the circulatory system; Z68.23 Body mass index [BMI] 23.0-23.9, adult; Z71.41 Alcohol abuse counseling and surveillance of alcoholic; Z71.6 Tobacco abuse counseling; M94.0 Chondrocostal junction syndrome [Tietze]
CPT/HCPCS: 36415; 80048; 80053; 82962; 84484; 85025; 86850; 86900; 86920; 93005; 99285; J0885; J1200; J2060; J2270

== ENCOUNTER 2021-05-17 12:33 | Inpatient (IN) | payer MEDICARE, MEDICAID ==
[~2021-05-17] VITALS: Ht 157.5 cm; Wt 55.0 kg
[2021-05-17] MEDS ORDERED: HYDROCODONE/ACETAMINOPHEN 5/325MG TABLET PO STA (13:23)
[2021-05-17 15:59] LABS: BASOPHILS % 1.2 % (0.0-2.0); EOSINOPHILS % 9.6 % (0.0-5.0); HEMATOCRIT. 23.2 % (36.0-48.0); HEMOGLOBIN. 7.6 g/dL (12.0-16.0); MEAN CORPUSCULAR HEMOGLOBIN 30.9 pg (28.0-32.0); MEAN PLATELET VOLUME 7.3 fl (7.4-10.4); MONOCYTES % 14.1 % (2.0-8.0); NEUTROPHILS % 51.1 % (40.0-76.0); PLATELET 183 x1000/uL (130-400); RED BLOOD CELL COUNT 2.46 mill/uL (4.2-5.4)
[2021-05-17 16:09] LABS: PHOSPHORUS 5.5 mg/dL (2.5-4.9)
[2021-05-17] MEDS ORDERED: PHENYTOIN SODIUM 500 MG in SODIUM CHLORIDE 0.9% 50 ML IV NR (16:45)
[2021-05-17] MEDS ORDERED: ACETAMINOPHEN 325MG TABLET PO PRN (19:15)
[2021-05-17] MEDS ORDERED: ONDANSETRON HCL 4MG/2ML INJ IV PRN (19:15)
[2021-05-17] MEDS ORDERED: IPRATROPIUM/ALBUTEROL 0.5-3(2.5)MG/3ML NEB HHN PRN (19:15)
[2021-05-17] MEDS ORDERED: CLONIDINE 0.1MG TABLET PO PRN (19:15)
[2021-05-17] MEDS ORDERED: MORPHINE SULFATE 4 MG/ML CPJ (NOT FOR IM USE) IV ONE (19:15)
[2021-05-17] MEDS: DIPHENHYDRAMINE 50MG/ML VIAL IV PRN (22:16)
[2021-05-17] MEDS: PHENYTOIN SODIUM EXTENDED 100MG CAPSULE PO SCH (22:16)
[2021-05-18] VITALS (8 sets, daily range): BP systolic 133–151; BP diastolic 90–100
[2021-05-18] MEDS: HYDROCODONE/ACETAMINOPHEN 5/325MG TABLET PO PRN ×4 (01:29→19:35)
[2021-05-18] MEDS: LORAZEPAM 0.5MG TABLET PO PRN ×2 (01:29→12:36)
[2021-05-18] MEDS ORDERED: NALOXONE HCL 0.4MG/ML VIAL IV PRN (01:30)
[2021-05-18] MEDS: DIPHENHYDRAMINE 50MG/ML VIAL IV PRN ×3 (02:56→22:00)
[2021-05-18] MEDS: PHENYTOIN SODIUM EXTENDED 100MG CAPSULE PO SCH ×3 (05:52→21:59)
[2021-05-18 10:48] LABS: BASOPHILS % 0.7 % (0.0-2.0); EOSINOPHILS % 7.1 % (0.0-5.0); HEMATOCRIT. 21.7 % (36.0-48.0); HEMOGLOBIN. 7.2 g/dL (12.0-16.0); LYMPHOCYTES % 25.1 % (20.0-50.0); MEAN PLATELET VOLUME 7.9 fl (7.4-10.4); MONOCYTES % 10.2 % (2.0-8.0); NEUTROPHILS % 56.9 % (40.0-76.0); PLATELET 149 x1000/uL (130-400); RED BLOOD CELL COUNT 2.26 mill/uL (4.2-5.4); RED CELL DISTRIBUTION WIDTH 16.5 % (11.6-14.6)
[2021-05-18 11:56] LABS: CHLORIDE 100 mEq/L (98-107)
[2021-05-18] MEDS ORDERED: LORAZEPAM 2MG/ML CPJ IV PRN (15:15)
[2021-05-18] MEDS: LEVOTHYROXINE SODIUM 100MCG TABLET PO SCH (16:16)
[2021-05-18] MEDS: CARVEDILOL 12.5MG TABLET PO SCH (17:11)
[2021-05-18] MEDS: CALCIUM ACETATE 667MG CAPSULE PO SCH (17:11)
[2021-05-18] MEDS: HYDRALAZINE HCL 50MG TABLET PO SCH (17:11)
[2021-05-18] MEDS: ALPRAZOLAM 0.5 MG TABLET PO PRN (22:01)
[2021-05-19] VITALS: BP 156/90
[2021-05-19] MEDS: HYDROCODONE/ACETAMINOPHEN 5/325MG TABLET PO PRN ×5 (00:42→20:18)
[2021-05-19 04:00] VITALS: BP 157/84
[2021-05-19] MEDS: DIPHENHYDRAMINE 50MG/ML VIAL IV PRN ×4 (04:19→20:17)
[2021-05-19 06:52] LABS: HEMATOCRIT. 24.8 % (36.0-48.0); HEMOGLOBIN. 8.2 g/dL (12.0-16.0); MEAN CORPUSCULAR HEMOGLOBIN 31.7 pg (28.0-32.0); MEAN CORPUSCULAR VOLUME 95.4 fL (81.0-99.0); PLATELET 156 x1000/uL (130-400); RED CELL DISTRIBUTION WIDTH 16.8 % (11.6-14.6)
[2021-05-19] MEDS: PHENYTOIN SODIUM EXTENDED 100MG CAPSULE PO SCH ×3 (06:56→21:55)
[2021-05-19] MEDS: LEVOTHYROXINE SODIUM 100MCG TABLET PO SCH (06:56)
[2021-05-19] MEDS: CALCIUM ACETATE 667MG CAPSULE PO SCH ×3 (06:56→16:59)
[2021-05-19 08:00] VITALS: BP 144/88
[2021-05-19] MEDS: LOSARTAN POTASSIUM 100 MG TABLET PO SCH (09:23)
[2021-05-19] MEDS: OMEPRAZOLE 20MG CAPSULE EXTENDED RELEASE PO SCH (09:23)
[2021-05-19] MEDS: HYDRALAZINE HCL 50MG TABLET PO SCH ×2 (09:23→17:00)
[2021-05-19] MEDS: FOLIC ACID/VITAMIN B COMP W-C TABLET PO SCH (09:23)
[2021-05-19] MEDS: CARVEDILOL 12.5MG TABLET PO SCH ×2 (09:24→17:00)
[2021-05-19] MEDS: AMLODIPINE 5MG TABLET PO SCH (09:24)
[2021-05-19] MEDS: ALPRAZOLAM 0.5 MG TABLET PO PRN ×2 (10:15→22:18)
[2021-05-19 12:00] VITALS: BP 124/78
[2021-05-19] MEDS ORDERED: PHENYTOIN SODIUM 500MG in SODIUM CHLORIDE 0.9% 50ML IV NR (13:00)
[2021-05-19 13:21] LABS: PLATELET ESTIMATE NORMAL
[2021-05-19 16:00] VITALS: BP 120/82
[2021-05-19 20:16] VITALS: BP 146/79
[2021-05-20] MEDS: HYDROCODONE/ACETAMINOPHEN 5/325MG TABLET PO PRN ×5 (00:37→20:02)
[2021-05-20] MEDS: DIPHENHYDRAMINE 50MG/ML VIAL IV PRN ×5 (00:38→20:01)
[2021-05-20 00:39] VITALS: BP 126/75
[2021-05-20] MEDS: LEVOTHYROXINE SODIUM 100MCG TABLET PO SCH (06:28)
[2021-05-20] MEDS: PHENYTOIN SODIUM EXTENDED 100MG CAPSULE PO SCH ×3 (06:28→22:16)
[2021-05-20] MEDS: CALCIUM ACETATE 667MG CAPSULE PO SCH ×3 (06:28→19:06)
[2021-05-20 08:00] VITALS: BP 140/89
[2021-05-20] MEDS: HYDRALAZINE HCL 50MG TABLET PO SCH ×2 (09:00→19:07)
[2021-05-20] MEDS: LOSARTAN POTASSIUM 100 MG TABLET PO SCH (09:00)
[2021-05-20] MEDS: CARVEDILOL 12.5MG TABLET PO SCH ×2 (09:00→19:07)
[2021-05-20] MEDS: AMLODIPINE 5MG TABLET PO SCH (09:00)
[2021-05-20] MEDS: OMEPRAZOLE 20MG CAPSULE EXTENDED RELEASE PO SCH (09:55)
[2021-05-20] MEDS: FOLIC ACID/VITAMIN B COMP W-C TABLET PO SCH (09:55)
[2021-05-20] MEDS: ALPRAZOLAM 0.5 MG TABLET PO PRN ×2 (11:47→20:10)
[2021-05-20 12:00] VITALS: BP 130/77
[2021-05-20 16:00] VITALS: BP 144/84
[2021-05-20 20:00] VITALS: BP 129/74
[2021-05-21] VITALS: BP 113/76
[2021-05-21] MEDS: HYDROCODONE/ACETAMINOPHEN 5/325MG TABLET PO PRN ×3 (00:13→09:22)
[2021-05-21] MEDS: DIPHENHYDRAMINE 50MG/ML VIAL IV PRN ×3 (00:13→09:22)
[2021-05-21 04:00] VITALS: BP 125/77
[2021-05-21] MEDS: LEVOTHYROXINE SODIUM 100MCG TABLET PO SCH (06:48)
[2021-05-21] MEDS: PHENYTOIN SODIUM EXTENDED 100MG CAPSULE PO SCH (06:48)
[2021-05-21] MEDS: CALCIUM ACETATE 667MG CAPSULE PO SCH (06:48)
[2021-05-21 08:00] VITALS: BP 129/79
[2021-05-21] MEDS: HYDRALAZINE HCL 50MG TABLET PO SCH (09:00)
[2021-05-21] MEDS: FOLIC ACID/VITAMIN B COMP W-C TABLET PO SCH (09:17)
[2021-05-21] MEDS: OMEPRAZOLE 20MG CAPSULE EXTENDED RELEASE PO SCH (09:17)
[2021-05-21] MEDS: CARVEDILOL 12.5MG TABLET PO SCH (09:20)
[2021-05-21] MEDS: AMLODIPINE 5MG TABLET PO SCH (09:20)
[2021-05-21] MEDS: LOSARTAN POTASSIUM 100 MG TABLET PO SCH (09:20)
[2021-05-21 10:20] VITALS: BP 113/63
[2021-05-21 10:30] VITALS: BP 139/82
[2021-05-21] MEDS: ALPRAZOLAM 0.5 MG TABLET PO PRN (10:39)
== END 2021-05-21 11:52 | disposition home health service (06) | DRG 53 ==
LOC: ER 12:53 → 7EST 18:37 → ENRESERV 21:27
PROVIDERS: ADMIT Internal Medicine; ATTEND Internal Medicine
PROC: 5A1D70Z Performance of Urinary Filtration, Intermittent, Less than 6 Hours Per Day (ICD-10-PCS; principal; 2021-05-17)
PROC: 5A1D70Z Performance of Urinary Filtration, Intermittent, Less than 6 Hours Per Day (ICD-10-PCS; 2021-05-20)
DX: G40.909 Epilepsy, unspecified, not intractable, without status epilepticus (principal); R65.11 Systemic inflammatory response syndrome (SIRS) of non-infectious origin with acute organ dysfunction; I13.2 Hypertensive heart and chronic kidney disease with heart failure and with stage 5 chronic kidney disease, or end stage renal disease; N17.9 Acute kidney failure, unspecified; E44.0 Moderate protein-calorie malnutrition; E83.51 Hypocalcemia; E11.22 Type 2 diabetes mellitus with diabetic chronic kidney disease; D64.9 Anemia, unspecified; E88.09 Other disorders of plasma-protein metabolism, not elsewhere classified; N18.6 End stage renal disease; I50.9 Heart failure, unspecified; D72.821 Monocytosis (symptomatic); E03.9 Hypothyroidism, unspecified; F41.9 Anxiety disorder, unspecified; G89.4 Chronic pain syndrome; Z86.73 Personal history of transient ischemic attack (TIA), and cerebral infarction without residual deficits; Z99.2 Dependence on renal dialysis; Z82.49 Family history of ischemic heart disease and other diseases of the circulatory system; Z91.19 Patient's noncompliance with other medical treatment and regimen; Z88.8 Allergy status to other drugs, medicaments and biological substances; Z91.018 Allergy to other foods; Z91.010 Allergy to peanuts; Z79.890 Hormone replacement therapy; Z79.899 Other long term (current) drug therapy; Z68.22 Body mass index [BMI] 22.0-22.9, adult
CPT/HCPCS: 36415; 71045; 80048; 80053; 80069; 80185; 84443; 85025; 93005; 93970; 99291; C1893; J1165; J1200; J2270; J7040

== ENCOUNTER 2021-05-31 18:36 | Inpatient (IN) | payer MEDICARE, MEDICAID ==
[~2021-05-31] VITALS: Ht 167.6 cm; Wt 63.1 kg
[~2021-05-31 18:36] MED LIST changes: -CALC667C PO; -COR12 MT; -HYDR-4135 PO; -LEVO100T9 PO; -PHEN100C4 MT; -PHEN100C4 PO
[2021-05-31 23:11] LABS: HEMATOCRIT. 24.1 % (36.0-48.0); HEMOGLOBIN. 7.6 g/dL (12.0-16.0); MEAN CORPUSCULAR HEMOGLOBIN 31.5 pg (28.0-32.0); MEAN CORPUSCULAR VOLUME 99.5 fL (81.0-99.0); MEAN PLATELET VOLUME 8.2 fl (7.4-10.4); PLATELET 251 x1000/uL (130-400); RED BLOOD CELL COUNT 2.42 mill/uL (4.2-5.4); RED CELL DISTRIBUTION WIDTH 16.5 % (11.6-14.6)
[2021-05-31 23:15] LABS: CHLORIDE 108 mEq/L (98-107)
[2021-05-31] MEDS ORDERED: DEXTROSE 50% WATER 50ML SYRINGE IV NR (23:30)
[2021-05-31] MEDS ORDERED: INSULIN REGULAR (HUMULIN R) 300UNITS/3ML VIAL IV NR (23:30)
[2021-05-31] MEDS ORDERED: ALBUTEROL (0.083%) 2.5MG/3ML NEB HHN NR (23:30)
[2021-05-31] MEDS ORDERED: CALCIUM GLUCONATE 100MG/ML 10ML VIAL IV NR (23:30)
[2021-05-31] MEDS ORDERED: FUROSEMIDE 100MG/10ML VIAL IV NR (23:30)
[2021-05-31] MEDS ORDERED: SODIUM BICARBONATE 8.4% 1 MEQ/ML 50ML SYR IV NR (23:30)
[2021-05-31] MEDS ORDERED: SODIUM POLYSTYRENE SULFONATE 15 G/60 ML BOT PO NR (23:30)
[2021-05-31 23:31] LABS: PLATELET ESTIMATE NORMAL
[2021-06-01] MEDS ORDERED: DIPHENHYDRAMINE 50MG/ML VIAL IV ONE (00:15)
[2021-06-01] MEDS ORDERED: MORPHINE SULFATE 4 MG/ML CPJ (NOT FOR IM USE) IV ONE (00:15)
[2021-06-01] MEDS ORDERED: IPRATROPIUM/ALBUTEROL 0.5-3(2.5)MG/3ML NEB NEB PRN (01:00)
[2021-06-01] MEDS ORDERED: ACETAMINOPHEN 325MG TABLET PO PRN (01:00)
[2021-06-01] MEDS ORDERED: MAGNESIUM/ALUMINUM HYDROXIDE/SIMETHICONE 30ML UDC PO PRN (01:00)
[2021-06-01] MEDS ORDERED: ONDANSETRON HCL 4MG/2ML INJ IV PRN (01:00)
[2021-06-01] MEDS ORDERED: CLONIDINE 0.1MG TABLET PO PRN (01:00)
[2021-06-01] MEDS ORDERED: DOCUSATE SODIUM 100MG CAPSULE PO PRN (01:00)
[2021-06-01] MEDS ORDERED: NALOXONE HCL 0.4MG/ML VIAL IV PRN (01:15)
[2021-06-01 02:19] VITALS: BP 140/106
[2021-06-01 04:00] VITALS: BP 130/97
[2021-06-01] MEDS: HYDROCODONE/ACETAMINOPHEN 5/325MG TABLET PO PRN ×3 (04:39→18:10)
[2021-06-01 07:55] LABS: HEMATOCRIT. 24.1 % (36.0-48.0); HEMOGLOBIN. 7.9 g/dL (12.0-16.0); MEAN CORPUSCULAR HEMOGLOBIN 31.7 pg (28.0-32.0); MEAN CORPUSCULAR VOLUME 97.2 fL (81.0-99.0); MEAN PLATELET VOLUME 8.3 fl (7.4-10.4); PLATELET 274 x1000/uL (130-400); RED BLOOD CELL COUNT 2.48 mill/uL (4.2-5.4); RED CELL DISTRIBUTION WIDTH 16.1 % (11.6-14.6)
[2021-06-01 08:00] VITALS: BP 118/90
[2021-06-01] MEDS ORDERED: HEPARIN SODIUM 1,000 UNIT/1ML VIAL IV NR (08:00)
[2021-06-01] MEDS: PHENYTOIN SODIUM EXTENDED 100MG CAPSULE PO SCH ×3 (11:07→22:00)
[2021-06-01] MEDS: ALPRAZOLAM 0.5 MG TABLET PO PRN ×2 (11:07→19:28)
[2021-06-01 12:00] VITALS: BP 148/92
[2021-06-01 12:58] LABS: PLATELET ESTIMATE NORMAL
[2021-06-01] MEDS: CALCIUM ACETATE 667MG CAPSULE PO SCH ×2 (13:31→18:08)
[2021-06-01 16:00] VITALS: BP 149/92
[2021-06-01] MEDS ORDERED: HYDRALAZINE HCL 50MG TABLET PO SCH (17:00)
[2021-06-01] MEDS: DIPHENHYDRAMINE 25MG CAPSULE PO PRN (18:08)
[2021-06-01] MEDS: CARVEDILOL 12.5MG TABLET PO SCH (21:00)
[2021-06-02] VITALS: BP 145/94
[2021-06-02] MEDS: HYDROCODONE/ACETAMINOPHEN 5/325MG TABLET PO PRN ×4 (00:22→22:38)
[2021-06-02 04:00] VITALS: BP 139/86
[2021-06-02] MEDS: PHENYTOIN SODIUM EXTENDED 100MG CAPSULE PO SCH ×3 (06:19→21:00)
[2021-06-02] MEDS: OMEPRAZOLE 20MG CAPSULE EXTENDED RELEASE PO SCH (06:19)
[2021-06-02] MEDS: DIPHENHYDRAMINE 25MG CAPSULE PO PRN ×2 (06:20→22:37)
[2021-06-02] MEDS: LEVOTHYROXINE SODIUM 100MCG TABLET PO SCH (06:20)
[2021-06-02] MEDS: ALPRAZOLAM 0.5 MG TABLET PO PRN ×2 (06:26→18:30)
[2021-06-02 08:00] VITALS: BP 124/81
[2021-06-02] MEDS: AMLODIPINE 5MG TABLET PO SCH (09:20)
[2021-06-02] MEDS: FOLIC ACID/VITAMIN B COMP W-C TABLET PO SCH (09:20)
[2021-06-02] MEDS: CALCIUM ACETATE 667MG CAPSULE PO SCH ×3 (09:20→17:20)
[2021-06-02] MEDS: LOSARTAN POTASSIUM 100 MG TABLET PO SCH (09:20)
[2021-06-02] MEDS: CARVEDILOL 12.5MG TABLET PO SCH ×2 (09:21→21:01)
[2021-06-02 12:00] VITALS: BP 117/77
[2021-06-02] MEDS: HYDRALAZINE HCL 50MG TABLET PO SCH ×2 (13:36→17:00)
[2021-06-02 16:56] VITALS: BP 105/69
[2021-06-02 20:00] VITALS: BP 113/74
[2021-06-03] VITALS: BP 104/59
[2021-06-03] MEDS: ALPRAZOLAM 0.5 MG TABLET PO PRN ×2 (02:50→12:00)
[2021-06-03] MEDS: HYDROCODONE/ACETAMINOPHEN 5/325MG TABLET PO PRN (02:52)
[2021-06-03 04:00] VITALS: BP 105/74
[2021-06-03] MEDS: OMEPRAZOLE 20MG CAPSULE EXTENDED RELEASE PO SCH (06:22)
[2021-06-03] MEDS: LEVOTHYROXINE SODIUM 100MCG TABLET PO SCH (06:23)
[2021-06-03] MEDS: DIPHENHYDRAMINE 25MG CAPSULE PO PRN (06:23)
[2021-06-03] MEDS: PHENYTOIN SODIUM EXTENDED 100MG CAPSULE PO SCH ×2 (06:23→13:36)
[2021-06-03] MEDS ORDERED: HEPARIN SODIUM 1,000 UNIT/1ML VIAL IV NR (07:15)
[2021-06-03 07:48] LABS: HEMATOCRIT. 26.2 % (36.0-48.0); HEMOGLOBIN. 8.4 g/dL (12.0-16.0); MEAN CORPUSCULAR HEMOGLOBIN 32.1 pg (28.0-32.0); MEAN CORPUSCULAR VOLUME 99.6 fL (81.0-99.0); MEAN PLATELET VOLUME 9.1 fl (7.4-10.4); PLATELET 155 x1000/uL (130-400); RED BLOOD CELL COUNT 2.63 mill/uL (4.2-5.4); RED CELL DISTRIBUTION WIDTH 16.1 % (11.6-14.6)
[2021-06-03 08:00] VITALS: BP 118/78
[2021-06-03] MEDS: CALCIUM ACETATE 667MG CAPSULE PO SCH ×2 (09:40→13:36)
[2021-06-03] MEDS: CARVEDILOL 12.5MG TABLET PO SCH (09:40)
[2021-06-03] MEDS: LOSARTAN POTASSIUM 100 MG TABLET PO SCH (09:40)
[2021-06-03] MEDS: FOLIC ACID/VITAMIN B COMP W-C TABLET PO SCH (09:40)
[2021-06-03] MEDS: HYDRALAZINE HCL 50MG TABLET PO SCH (09:40)
[2021-06-03] MEDS: AMLODIPINE 5MG TABLET PO SCH (09:40)
[2021-06-03] MEDS ORDERED: HYDROCODONE/ACETAMINOPHEN 10/325MG TABLET PO PRN (09:45)
[2021-06-03 10:48] LABS: PLATELET ESTIMATE NORMAL
[2021-06-03 12:00] VITALS: BP 99/70
[2021-06-03 14:08] VITALS: BP 99/70
== END 2021-06-03 15:50 | disposition home or self-care (01) | DRG 133 ==
LOC: ER 18:36 → 8WST 06-01 00:16 → EDBEDREQ 06-01 00:51 → EDBEDREQTM 06-01 00:51 → ENRESERV 06-01 01:19
PROVIDERS: ADMIT Internal Medicine; ATTEND Internal Medicine
PROC: 5A1D70Z Performance of Urinary Filtration, Intermittent, Less than 6 Hours Per Day (ICD-10-PCS; principal; 2021-06-03)
DX: J96.00 Acute respiratory failure, unspecified whether with hypoxia or hypercapnia (principal); I13.2 Hypertensive heart and chronic kidney disease with heart failure and with stage 5 chronic kidney disease, or end stage renal disease; N18.6 End stage renal disease; R18.8 Other ascites; E11.22 Type 2 diabetes mellitus with diabetic chronic kidney disease; E44.0 Moderate protein-calorie malnutrition; K74.60 Unspecified cirrhosis of liver; D64.9 Anemia, unspecified; D72.821 Monocytosis (symptomatic); E87.5 Hyperkalemia; E03.9 Hypothyroidism, unspecified; F10.10 Alcohol abuse, uncomplicated; F41.9 Anxiety disorder, unspecified; G40.909 Epilepsy, unspecified, not intractable, without status epilepticus; I50.9 Heart failure, unspecified; G89.4 Chronic pain syndrome; E05.90 Thyrotoxicosis, unspecified without thyrotoxic crisis or storm; K21.9 Gastro-esophageal reflux disease without esophagitis; Z88.8 Allergy status to other drugs, medicaments and biological substances; Z91.018 Allergy to other foods; Z99.2 Dependence on renal dialysis; Z79.899 Other long term (current) drug therapy; Z82.49 Family history of ischemic heart disease and other diseases of the circulatory system; Z79.01 Long term (current) use of anticoagulants; Z68.22 Body mass index [BMI] 22.0-22.9, adult
CPT/HCPCS: 36415; 71045; 80048; 80053; 80061; 82962; 84132; 84484; 85025; 93005; 99285; J0610; J1200; J1644; J1815; J2270; Q0163

== ENCOUNTER 2021-06-05 16:50 | Inpatient (IN) | payer MEDICARE, MEDICAID ==
[~2021-06-05] VITALS: Ht 170.2 cm; Wt 56.2 kg
[2021-06-06 01:42] LABS: BASOPHILS % 1.3 % (0.0-2.0); EOSINOPHILS % 4.7 % (0.0-5.0); HEMATOCRIT. 22.2 % (36.0-48.0); HEMOGLOBIN. 7.4 g/dL (12.0-16.0); LYMPHOCYTES % 19.7 % (20.0-50.0); MEAN CORPUSCULAR HEMOGLOBIN 31.7 pg (28.0-32.0); MEAN CORPUSCULAR VOLUME 95.4 fL (81.0-99.0); MEAN PLATELET VOLUME 7.8 fl (7.4-10.4); MONOCYTES % 10.8 % (2.0-8.0); NEUTROPHILS % 63.5 % (40.0-76.0); PLATELET 273 x1000/uL (130-400); RED BLOOD CELL COUNT 2.33 mill/uL (4.2-5.4); RED CELL DISTRIBUTION WIDTH 16.1 % (11.6-14.6)
[2021-06-06 01:54] LABS: CHLORIDE 108 mEq/L (98-107)
[2021-06-06] MEDS ORDERED: MORPHINE SULFATE 4 MG/ML CPJ (NOT FOR IM USE) IV STA (02:28)
[2021-06-06 03:34] LABS: HCG SCREEN NEGATIVE
[2021-06-06] MEDS ORDERED: DIPHENHYDRAMINE 25MG CAPSULE PO ONE (05:30)
[2021-06-06] MEDS ORDERED: CEFTRIAXONE 2 G PREMIX 50 ML IV ONE (05:30)
[2021-06-06] MEDS ORDERED: DIPHENHYDRAMINE 50MG/ML VIAL IV ONE (05:45)
[2021-06-06] MEDS ORDERED: IPRATROPIUM/ALBUTEROL 0.5-3(2.5)MG/3ML NEB NEB PRN (07:30)
[2021-06-06] MEDS ORDERED: MAGNESIUM/ALUMINUM HYDROXIDE/SIMETHICONE 30ML UDC PO PRN (07:30)
[2021-06-06] MEDS ORDERED: NITROGLYCERIN 0.4MG TABLET SL SL PRN (07:30)
[2021-06-06] MEDS ORDERED: GUAIFENESIN 200MG/10ML SUGAR FREE UDC PO PRN (07:30)
[2021-06-06] MEDS ORDERED: DOCUSATE SODIUM 100MG CAPSULE PO PRN (07:30)
[2021-06-06] MEDS ORDERED: DIPHENHYDRAMINE 50MG/ML VIAL IV PRN (07:30)
[2021-06-06] MEDS ORDERED: ACETAMINOPHEN 325MG TABLET PO PRN ×2 (07:30)
[2021-06-06] MEDS: LEVOTHYROXINE SODIUM 100MCG TABLET PO SCH (08:36)
[2021-06-06] MEDS: FAMOTIDINE 20MG TABLET PO SCH (08:44)
[2021-06-06] MEDS: SEVELAMER CARBONATE 800 MG TABLET PO SCH ×3 (08:44→20:24)
[2021-06-06] MEDS: ENOXAPARIN 30MG/0.3ML SYR SUBCUT SCH (08:45)
[2021-06-06] MEDS: TRAMADOL 50MG TABLET PO PRN ×2 (09:40→20:04)
[2021-06-06] MEDS: LORAZEPAM 0.5MG TABLET PO PRN ×3 (10:43→21:23)
[2021-06-06 13:18] LABS: HEPATITIS B SURFACE ANTIGEN NEGATIVE
[2021-06-06] MEDS: AMLODIPINE 10MG TABLET PO SCH (13:47)
[2021-06-06] MEDS: DIPHENHYDRAMINE 50MG/ML VIAL IV PRN (13:48)
[2021-06-06] MEDS: DIPHENHYDRAMINE 50MG CAPSULE PO PRN (15:26)
[2021-06-06 15:33] LABS: ETHANOL BLOOD < 10 mg/dL
[2021-06-06 15:34] LABS: INR 1.2; PARTIAL THROMBOPLASTIN TIME 34.2 sec (23.4-31.0); PROTHROMBIN TIME 12.7 sec (9.6-11.0)
[2021-06-06 15:38] LABS: CREATINE KINASE 213 IU/L (26-192)
[2021-06-06 15:39] LABS: CREATINE KINASE MB FRACTION 1.9 ng/mL (0.5-3.6)
[2021-06-06] MEDS ORDERED: CARVEDILOL 3.125 MG TABLET PO SCH (18:00)
[2021-06-06 20:00] VITALS: BP 143/100
[2021-06-06] MEDS: PHENYTOIN SODIUM EXTENDED 100MG CAPSULE PO SCH (21:20)
[2021-06-06] MEDS: ZOLPIDEM TARTRATE 5MG TABLET PO PRN (22:25)
[2021-06-07] VITALS (12 sets, daily range): BP systolic 132–178; BP diastolic 82–107
[2021-06-07] MEDS: DIPHENHYDRAMINE 50MG CAPSULE PO PRN ×2 (00:23→20:49)
[2021-06-07] MEDS: TRAMADOL 50MG TABLET PO PRN ×2 (02:03→17:07)
[2021-06-07] MEDS: LORAZEPAM 0.5MG TABLET PO PRN ×3 (03:43→18:39)
[2021-06-07] MEDS: CLONIDINE 0.1MG TABLET PO PRN (04:59)
[2021-06-07] MEDS: LEVOTHYROXINE SODIUM 100MCG TABLET PO SCH (06:23)
[2021-06-07] MEDS: DIPHENHYDRAMINE 50MG/ML VIAL IV PRN ×3 (07:19→18:39)
[2021-06-07] MEDS: SEVELAMER CARBONATE 800 MG TABLET PO SCH ×4 (07:50→17:03)
[2021-06-07 09:00] LABS: BASOPHILS % 1.2 % (0.0-2.0); EOSINOPHILS % 4.8 % (0.0-5.0); LYMPHOCYTES % 22.2 % (20.0-50.0); MEAN CORPUSCULAR HEMOGLOBIN 31.9 pg (28.0-32.0); MEAN CORPUSCULAR VOLUME 95.7 fL (81.0-99.0); MEAN PLATELET VOLUME 7.9 fl (7.4-10.4); NEUTROPHILS % 62.8 % (40.0-76.0); PLATELET 253 x1000/uL (130-400); RED CELL DISTRIBUTION WIDTH 15.8 % (11.6-14.6)
[2021-06-07] MEDS: ENOXAPARIN 30MG/0.3ML SYR SUBCUT SCH (09:00)
[2021-06-07 09:03] LABS: HEMATOCRIT. 19.1 % (36.0-48.0); HEMOGLOBIN. 6.4 g/dL (12.0-16.0)
[2021-06-07 09:24] LABS: CHLORIDE 103 mEq/L (98-107)
[2021-06-07 09:39] LABS: PHOSPHORUS 3.2 mg/dL (2.5-4.9)
[2021-06-07 09:40] LABS: CREATINE KINASE 263 IU/L (26-192)
[2021-06-07 09:42] LABS: CREATINE KINASE MB FRACTION 2.1 ng/mL (0.5-3.6)
[2021-06-07] MEDS ORDERED: SODIUM BICARBONATE 4% (2.4MEQ) 5ML VIAL IV ONE (10:28)
[2021-06-07] MEDS ORDERED: LIDOCAINE HCL 1% 20ML VIAL (Pyxis) INJ ONE (10:28)
[2021-06-07] MEDS: FAMOTIDINE 20MG TABLET PO SCH (12:43)
[2021-06-07] MEDS: AMLODIPINE 10MG TABLET PO SCH (12:48)
[2021-06-07] MEDS: ZOLPIDEM TARTRATE 5MG TABLET PO PRN (20:34)
[2021-06-07] MEDS: PHENYTOIN SODIUM EXTENDED 100MG CAPSULE PO SCH (20:49)
[2021-06-07] MEDS ORDERED: EPOETIN ALFA 10000UNITS/ML VIAL SUBCUT SCH (21:00)
[2021-06-07] MEDS ORDERED: EPOETIN ALFA-EPBX 10,000 UNIT/ML VIAL SUBCUT SCH (21:00)
[2021-06-08] VITALS: BP 149/97
[2021-06-08] MEDS: TRAMADOL 50MG TABLET PO PRN ×3 (00:04→17:19)
[2021-06-08] MEDS: DIPHENHYDRAMINE 50MG/ML VIAL IV PRN ×4 (00:49→20:05)
[2021-06-08 00:59] LABS: HEMATOCRIT 21.3 % (36.0-48.0); HEMOGLOBIN 7.2 g/dL (12.0-16.0)
[2021-06-08] MEDS: LORAZEPAM 0.5MG TABLET PO PRN ×4 (02:23→20:05)
[2021-06-08 03:52] LABS: INR 1.2; PROTHROMBIN TIME 12.4 sec (9.6-11.0)
[2021-06-08 04:00] VITALS: BP 129/72
[2021-06-08] MEDS: LEVOTHYROXINE SODIUM 100MCG TABLET PO SCH (06:49)
[2021-06-08 08:23] VITALS: BP 141/97
[2021-06-08] MEDS: ONDANSETRON HCL 4MG/2ML INJ IV PRN (08:30)
[2021-06-08] MEDS: FAMOTIDINE 20MG TABLET PO SCH (08:31)
[2021-06-08] MEDS: SEVELAMER CARBONATE 800 MG TABLET PO SCH ×3 (08:31→17:19)
[2021-06-08] MEDS: AMLODIPINE 10MG TABLET PO SCH (08:31)
[2021-06-08] MEDS ORDERED: MORPHINE SULFATE 2 MG/ML CPJ (NOT FOR IM USE) IV NR (11:15)
[2021-06-08 11:54] VITALS: BP 161/106
[2021-06-08] MEDS: CLONIDINE 0.1MG TABLET PO PRN (11:58)
[2021-06-08 16:45] VITALS: BP 151/104
[2021-06-08 18:05] LABS: BASOPHILS % 0.9 % (0.0-2.0); EOSINOPHILS % 4.3 % (0.0-5.0); HEMATOCRIT. 22.7 % (36.0-48.0); HEMOGLOBIN. 7.5 g/dL (12.0-16.0); MEAN CORPUSCULAR HEMOGLOBIN 31.8 pg (28.0-32.0); MEAN CORPUSCULAR VOLUME 96.8 fL (81.0-99.0); MEAN PLATELET VOLUME 7.6 fl (7.4-10.4); MONOCYTES % 9.5 % (2.0-8.0); NEUTROPHILS % 68.3 % (40.0-76.0); PLATELET 242 x1000/uL (130-400); RED BLOOD CELL COUNT 2.35 mill/uL (4.2-5.4)
[2021-06-08 20:00] VITALS: BP 138/99
[2021-06-08] MEDS: ZOLPIDEM TARTRATE 5MG TABLET PO PRN (21:31)
[2021-06-08] MEDS: PHENYTOIN SODIUM EXTENDED 100MG CAPSULE PO SCH (21:31)
[2021-06-09] VITALS: BP 131/96
[2021-06-09] MEDS: LORAZEPAM 0.5MG TABLET PO PRN ×5 (00:15→23:19)
[2021-06-09] MEDS: DIPHENHYDRAMINE 50MG/ML VIAL IV PRN ×4 (02:28→21:10)
[2021-06-09] MEDS: TRAMADOL 50MG TABLET PO PRN ×3 (04:06→16:55)
[2021-06-09 04:20] VITALS: BP 134/96
[2021-06-09] MEDS: ONDANSETRON HCL 4MG/2ML INJ IV PRN ×2 (06:13→20:17)
[2021-06-09] MEDS: LEVOTHYROXINE SODIUM 100MCG TABLET PO SCH (06:24)
[2021-06-09 07:50] LABS: BASOPHILS % 0.8 % (0.0-2.0); EOSINOPHILS % 3.9 % (0.0-5.0); HEMATOCRIT. 24.5 % (36.0-48.0); HEMOGLOBIN. 8.3 g/dL (12.0-16.0); LYMPHOCYTES % 18.4 % (20.0-50.0); MEAN CORPUSCULAR HEMOGLOBIN 32.3 pg (28.0-32.0); MEAN CORPUSCULAR VOLUME 95.7 fL (81.0-99.0); MEAN PLATELET VOLUME 7.4 fl (7.4-10.4); MONOCYTES % 8.3 % (2.0-8.0); NEUTROPHILS % 68.6 % (40.0-76.0); PLATELET 320 x1000/uL (130-400); RED BLOOD CELL COUNT 2.56 mill/uL (4.2-5.4); RED CELL DISTRIBUTION WIDTH 16.2 % (11.6-14.6)
[2021-06-09 08:00] VITALS: BP 142/102
[2021-06-09] MEDS: SEVELAMER CARBONATE 800 MG TABLET PO SCH ×3 (08:33→16:54)
[2021-06-09] MEDS: FAMOTIDINE 20MG TABLET PO SCH (08:33)
[2021-06-09] MEDS: AMLODIPINE 10MG TABLET PO SCH (08:34)
[2021-06-09 11:58] VITALS: BP 151/106
[2021-06-09 16:00] VITALS: BP 146/91
[2021-06-09 20:00] VITALS: BP 162/117
[2021-06-09] MEDS: CLONIDINE 0.1MG TABLET PO PRN (20:17)
[2021-06-09] MEDS: PHENYTOIN SODIUM EXTENDED 100MG CAPSULE PO SCH (20:18)
[2021-06-09] MEDS: ZOLPIDEM TARTRATE 5MG TABLET PO PRN (21:10)
[2021-06-10] VITALS: BP 156/116
[2021-06-10] MEDS: TRAMADOL 50MG TABLET PO PRN ×2 (00:23→09:22)
[2021-06-10] MEDS: DIPHENHYDRAMINE 50MG/ML VIAL IV PRN (03:20)
[2021-06-10] MEDS: CLONIDINE 0.1MG TABLET PO PRN ×2 (03:21→11:56)
[2021-06-10 04:00] VITALS: BP 161/100
[2021-06-10] MEDS: LEVOTHYROXINE SODIUM 100MCG TABLET PO SCH (06:19)
[2021-06-10] MEDS: LORAZEPAM 0.5MG TABLET PO PRN ×2 (06:19→11:55)
[2021-06-10 08:01] VITALS: BP 158/94
[2021-06-10] MEDS: SEVELAMER CARBONATE 800 MG TABLET PO SCH ×2 (09:18→12:50)
[2021-06-10] MEDS: AMLODIPINE 10MG TABLET PO SCH (09:19)
[2021-06-10] MEDS: FAMOTIDINE 20MG TABLET PO SCH (09:21)
[2021-06-10] MEDS: ENOXAPARIN 30MG/0.3ML SYR SUBCUT SCH (09:24)
[2021-06-10 11:52] VITALS: BP 158/114
[2021-06-10 12:12] VITALS: BP 158/114
== END 2021-06-10 14:59 | disposition home or self-care (01) | DRG 194 ==
LOC: ER 16:50 → 6WST 06-06 05:28 → ENRESERV 06-06 08:15
PROVIDERS: ADMIT Internal Medicine; ATTEND Internal Medicine
PROC: 5A1D70Z Performance of Urinary Filtration, Intermittent, Less than 6 Hours Per Day (ICD-10-PCS; 2021-06-06)
PROC: 30233N1 Transfusion of Nonautologous Red Blood Cells into Peripheral Vein, Percutaneous Approach (ICD-10-PCS; principal; 2021-06-07)
PROC: 0W9G3ZZ Drainage of Peritoneal Cavity, Percutaneous Approach (ICD-10-PCS; 2021-06-07)
PROC: 02HV33Z Insertion of Infusion Device into Superior Vena Cava, Percutaneous Approach (ICD-10-PCS; 2021-06-07)
PROC: B5181ZA Fluoroscopy of Superior Vena Cava using Low Osmolar Contrast, Guidance (ICD-10-PCS; 2021-06-07)
PROC: B548ZZA Ultrasonography of Superior Vena Cava, Guidance (ICD-10-PCS; 2021-06-07)
PROC: 5A1D70Z Performance of Urinary Filtration, Intermittent, Less than 6 Hours Per Day (ICD-10-PCS; 2021-06-08)
DX: I13.2 Hypertensive heart and chronic kidney disease with heart failure and with stage 5 chronic kidney disease, or end stage renal disease (principal); K70.31 Alcoholic cirrhosis of liver with ascites; N18.6 End stage renal disease; I50.33 Acute on chronic diastolic (congestive) heart failure; E44.0 Moderate protein-calorie malnutrition; D63.8 Anemia in other chronic diseases classified elsewhere; E83.51 Hypocalcemia; E11.22 Type 2 diabetes mellitus with diabetic chronic kidney disease; F10.10 Alcohol abuse, uncomplicated; E03.9 Hypothyroidism, unspecified; K52.9 Noninfective gastroenteritis and colitis, unspecified; E05.90 Thyrotoxicosis, unspecified without thyrotoxic crisis or storm; F41.9 Anxiety disorder, unspecified; K21.9 Gastro-esophageal reflux disease without esophagitis; G40.909 Epilepsy, unspecified, not intractable, without status epilepticus; Z20.822 Contact with and (suspected) exposure to COVID-19; Z99.2 Dependence on renal dialysis; Z82.49 Family history of ischemic heart disease and other diseases of the circulatory system; Z91.14 Patient's other noncompliance with medication regimen; Z88.8 Allergy status to other drugs, medicaments and biological substances; Z91.018 Allergy to other foods; Z91.010 Allergy to peanuts; Z79.01 Long term (current) use of anticoagulants; Z79.899 Other long term (current) drug therapy; Z68.1 Body mass index [BMI] 19.9 or less, adult
CPT/HCPCS: 36415; 36573; 49083; 71045; 74176; 80051; 80053; 80185; 80320; 82550; 82553; 83735; 84100; 84443; 84484; 84703; 85014; 85018; 85025; 85049; 85384; 86705; 86709; 86803; 86850; 86900; 86920; 87340; 87426; 93005; 93971; 99285; C1725; J0696; J0885; J1200; J1650; J2270; J2405; J3490; J7040; P9016; Q0163; G0480

== ENCOUNTER 2021-06-12 22:12 | Emergency (ER) | payer MEDICARE, MEDICAID ==
[~2021-06-12] VITALS: Ht 162.6 cm; Wt 59.0 kg
[2021-06-12 23:25] VITALS: BP 188/116
== END 2021-06-12 23:33 | disposition home or self-care (01) ==
LOC: ER 22:12
DX: R53.1 Weakness (principal); I13.2 Hypertensive heart and chronic kidney disease with heart failure and with stage 5 chronic kidney disease, or end stage renal disease; N18.6 End stage renal disease; I50.9 Heart failure, unspecified; E03.9 Hypothyroidism, unspecified; R56.9 Unspecified convulsions; Z88.8 Allergy status to other drugs, medicaments and biological substances; Z99.2 Dependence on renal dialysis; Z91.018 Allergy to other foods
CPT/HCPCS: 82962; 99283

== ENCOUNTER 2021-06-13 05:12 | Emergency (ER) | payer MEDICARE, MEDICAID ==
[~2021-06-13] VITALS: Ht 165.1 cm; Wt 59.0 kg
[2021-06-13 08:37] LABS: EOSINOPHILS % 3.3 % (0.0-5.0); HEMATOCRIT. 26.4 % (36.0-48.0); HEMOGLOBIN. 8.7 g/dL (12.0-16.0); LYMPHOCYTES % 11.5 % (20.0-50.0); MEAN CORPUSCULAR HEMOGLOBIN 31.6 pg (28.0-32.0); MEAN CORPUSCULAR VOLUME 96.4 fL (81.0-99.0); MEAN PLATELET VOLUME 7.2 fl (7.4-10.4); MONOCYTES % 8.4 % (2.0-8.0); NEUTROPHILS % 75.8 % (40.0-76.0); PLATELET 313 x1000/uL (130-400); RED BLOOD CELL COUNT 2.74 mill/uL (4.2-5.4); RED CELL DISTRIBUTION WIDTH 16.4 % (11.6-14.6)
[2021-06-13 09:30] LABS: CHLORIDE 105 mEq/L (98-107)
[2021-06-13 11:14] VITALS: BP 149/68
== END 2021-06-13 11:17 | disposition home or self-care (01) ==
LOC: ER 05:12
DX: R60.9 Edema, unspecified (principal); N18.6 End stage renal disease; Z99.2 Dependence on renal dialysis; I50.9 Heart failure, unspecified; D64.9 Anemia, unspecified; F20.9 Schizophrenia, unspecified; Z88.8 Allergy status to other drugs, medicaments and biological substances; Z91.018 Allergy to other foods
CPT/HCPCS: 36415; 71045; 80053; 83880; 84484; 85025; 93005; 93970; 99285